=== PATIENT | female | born 1940 | race Caucasian/White ===

== ENCOUNTER 2023-07-24 16:42 | Emergency (ER) | payer MEDICARE, OTHER, SELFPAY ==
[2023-07-24 16:49] VITALS: BP 162/74; PULSE 77; RESP 20; TEMP 37.2; O2SAT 98; BMI 33.7
--- NOTE | 2023-07-24 17:27 | ED_ITS ---
HPI - General Adult General Chief complaint: Upper Respiratory Infection Stated complaint: Sore Throat Time Seen by Provider: 07/24/23 16:51 Source: patient Mode of arrival: walk-in Limitations: no limitations History of Present Illness HPI narrative: Patient is a 83-year-old female who is presenting to the Emergency Room with sinus congestion, sore throat, some discomfort to the left side of her neck. This started last night and this morning. Patient has no fever or chills. Patient states she did have a episode of coughing this morning where she was spitting up clear sputum. Patient has some mild swelling for side of her neck, pain with swallowing, she has no significant pressure to her sinuses. Patient has mild discomfort to the left ear, not the right ear. No chest pain or shortness of breath. No dull pain, nausea, vomiting, or any acute complaints. Patient daughters at bedside. Patient's daughter works at a senior living. Patient's daughter does have home COVID test, they did not use one. Patient looks well. No sick contacts. No other acute complaints. . All systems are negative except as noted/marked. All systems reviewed and otherwise negative. . Nurses note and vital signs reviewed and patient is not hypoxic. General: The patient appears well and in no apparent distress. Patient is resting comfortably on cart. Patient is not toxic, lethargic, or listless Skin: Warm, dry, no pallor noted. There is no rash noted. No petechiae, purpura. Head: Normocephalic, atraumatic; Patient has no tenderness to palpation to bilateral frontal or maxillary sinus. Patient has no tenderness to palpation to the left parotid her left submental saliva gland. Patient has minimal swollen lymph nodes the left anterior cervical chain. Patient has full range of motion of cervical spinal no difficulty, no nuchal rigidity, no meningeal signs or symptoms. Eye: Normal conjunctiva, no drainage, EOMI. PERRL Ears, Nose, Mouth, and Throat: oral mucosa is moist. Nares patent. Mouth without vesicles. Patient bilateral tympanic membrane shows mild amount of stool impaction bilateral. Patient has minimal fluid, a few air-fluid levels noted behind left patient has no air-fluid levels been right tympanic membrane. No erythema bilateral. Patient has cobblestoning noted to the left side of the posterior pharynx, not very much on the right side of posterior pharynx. No unilateral swelling. No other intraoral pathology, patient does have dentures uppers, she has her normal teeth to the lower. Difficult to swelling, no trismus. Patient has no right-sided cervical lymphadenopathy. Cardiovascular: Regular Rate and Rhythm, no murmur, gallop, rub Respiratory: Patient is in no distress, no accessory muscle use, lungs are clear to auscultation, no wheezing, rales or rhonchi Back: non-tender, no CVA tenderness bilaterally to percussion. No CT LS midline pain. GI: soft, no tenderness Musculoskeletal: Patient has full range of motion of all of the extremities, no motor, sensory, or focal neurological deficits Neurological: A&O x3, normal speech Psychiatric: Cooperative Related Data Home Medications Medication Instructions Recorded Confirmed apixaban 5 mg tablet (Eliquis) 5 mg PO Q12H 07/24/23 07/24/23 clonidine HCl 0.1 mg tablet 0.1 mg PO Q4H PRN hypertensive 07/24/23 07/24/23 emergency flecainide 50 mg tablet 25 mg PO Q12H 07/24/23 07/24/23 hydralazine 100 mg tablet 100 mg PO Q12H 07/24/23 07/24/23 irbesartan 150 mg tablet 150 mg PO BID 07/24/23 07/24/23 spironolactone 50 mg tablet 50 mg PO DAILY 07/24/23 07/24/23 Allergies Allergy/AdvReac Type Severity Reaction Status Date / Time NORAH Inhibitors Allergy Severe Cough Verified 07/24/23 17:07 loperamide [From Imodium A-D] Allergy Severe Difficulty Verified 07/24/23 17:07 Breathing nifedipine Allergy Severe Verified 07/24/23 17:07 chlorthalidone AdvReac Severe Cramping Verified 07/24/23 17:07 of the Muscles clonidine AdvReac Severe Dry Mucus Verified 07/24/23 17:07 Membranes codeine AdvReac Severe Nausea Verified 07/24/23 17:07 Penicillins AdvReac Severe Verified 07/24/23 17:07 Sulfa (Sulfonamide AdvReac Severe Nausea Verified 07/24/23 17:07 Antibiotics) hydrochlorothiazide AdvReac Unknown Verified 07/24/23 17:07 [facility] Medical History (Updated 07/24/23 @ 17:15 by George Taylor) History of essential hypertension ?Z86.79 - Personal history of other diseases of the circulatory system (ICD- 10) History of paroxysmal atrial tachycardia ?Z86.79 - Personal history of other diseases of the circulatory system (ICD- 10) History of right bundle branch block ?Z86.79 - Personal history of other diseases of the circulatory system (ICD- 10) Surgical History (Updated 07/24/23 @ 17:15 by George Taylor) History of appendectomy ?Z90.49 - Acquired absence of other specified parts of digestive tract (ICD- 10) History of cataract surgery ?Z98.49 - Cataract extraction status, unspecified eye (ICD-10) History of cholecystectomy ?Z90.49 - Acquired absence of other specified parts of digestive tract (ICD- 10) History of colonoscopy ?Z98.890 - Other specified postprocedural states (ICD-10) History of hysterectomy ?Z90.710 - Acquired absence of both cervix and uterus (ICD-10) History of throat surgery ?Z98.890 - Other specified postprocedural states (ICD-10) Social History Smoking status: Never smoker Exam Constitutional Vital Signs, click to edit/add: Last Vital Signs Temp 99 F 07/24/23 16:49 Pulse 77 07/24/23 16:49 Resp 20 07/24/23 16:49 BP 162/74 H 07/24/23 16:49 Pulse Ox 98 07/24/23 16:49 Course Vital Signs Vital signs: Vital Signs Temperature 99 F 07/24/23 16:49 Pulse Rate 77 07/24/23 16:49 Respiratory Rate 20 07/24/23 16:49 Blood Pressure 162/74 H 07/24/23 16:49 Pulse Oximetry 98 07/24/23 16:49 Temperature 99 F 07/24/23 16:49 Pulse Rate 77 07/24/23 16:49 Respiratory Rate 20 07/24/23 16:49 Blood Pressure 162/74 H 07/24/23 16:49 Pulse Oximetry 98 07/24/23 16:49 Medical Decision Making MDM Narrative Medical decision making narrative: Patient had a orange popsicle no difficulty. Patient has sinus drainage the left side of her posterior pharynx most likely is causing the difficulty swallowing which is minimal. Patient has no other acute pathology. Minimal swollen lymph nodes and left anterior cervical chain, mobile, firm, minimal tenderness. Patient was she symptoms [id number], patient states he has a blood pressure Coricidin and medication that she did take. She cannot take Flonase. Jamie mejia is to increase fluids. Education on COVID was discussed at bedside, patient can be tested by her daughter's home tests if they would like. No questions at discharge. Discharge Plan Discharge Chief Complaint: Upper Respiratory Infection Clinical Impression: Sinus congestion Patient Disposition: Home, Self-Care Condition: Good Mode of Transportation: Private Vehicle Prescriptions / Home Meds: No Action Eliquis 5 mg tablet 5 mg PO Q12H clonidine HCl 0.1 mg tablet 0.1 mg PO Q4H PRN (Reason: hypertensive emergency) flecainide 50 mg tablet 25 mg PO Q12H hydralazine 100 mg tablet 100 mg PO Q12H irbesartan 150 mg tablet 150 mg PO BID spironolactone 50 mg tablet 50 mg PO DAILY Instructions: Cold Symptoms (ED) Additional Instructions: Use [id number] Claritin, Zyrtec or your blood pressure Coricidin medication they have a home to help with trying her sinuses. Increased cold liquids, popsicles or ice cream. Use your daughter's [id number] home COVID test if you would like. Follow-up with PCP if no improvement in the next 3-5 days Stand Alone Forms: Portal Instructions Referrals: ASHLEY PINEDA [Primary Care Provider] - 1 week Discharge Date/Time: 07/24/23 17:18
== END 2023-07-24 17:18 | disposition home or self-care (01) ==
PROVIDERS: Emergency Provider Emergency Medicine; PCP Family Medicine
DX: R09.81 Nasal congestion (principal); I48.0 Paroxysmal atrial fibrillation; I10 Essential (primary) hypertension; Z79.899 Other long term (current) drug therapy; Z79.01 Long term (current) use of anticoagulants; Z90.49 Acquired absence of other specified parts of digestive tract; Z98.49 Cataract extraction status, unspecified eye; Z98.890 Other specified postprocedural states; Z90.710 Acquired absence of both cervix and uterus; Z86.79 Personal history of other diseases of the circulatory system
CPT/HCPCS: 87880; 99281

== ENCOUNTER 2024-02-20 08:44 | Outpatient (OUT) | payer MEDICARE, OTHER, SELFPAY ==
--- OUTSIDE RECORDS SUMMARY | 2024-02-20 08:49 | XMS_ITS | CCD ---
Author Organization [facility] ion [facility] Care Team Providers Care Clinical Research Tech Name Role Phone CHARMAINE TILLEY Attending Unavailable RAGHAV PINEDA Primary Care Unavailable JES KEITH Attending Unavailable RAGHAV PINEDA Primary Care Unavailable JES KEITH Attending Unavailable RAGHAV PINEDA Primary Care Unavailable Raghav Pineda Unavailable Unavailable Unavailable George Adams Unavailable DO Raghav Pineda Primary Care Provider DO Natalie Brian Emergency Provider [phone] RAGHAV PINEDA Primary Care Unavailable JEANINE NOLAN Admitting Unavailable JEANINE NOLAN Attending Unavailable JEANINE NOLAN Consulting Unavailable MISC, DR STACY Admitting Unavailable MISC, DR STACY Attending Unavailable STEPHEN, DR AVILEZ Primary Care Unavailable MISC, DR STACY Consulting Unavailable LEDA, DR BOSCH Admitting Unavailable LEDA, DR BOSCH Attending Unavailable STEPHEN, DR AVILEZ Primary Care Unavailable LEDA, DR BOSCH Consulting Unavailable Clementina Alexis Consulting Unavailable STEPHEN, DR AVILEZ Primary Care Unavailable JEANINE NOLAN Admitting Unavailable JEANINE NOALN Attending Unavailable SHERON FLYNN Consulting Unavailable STEPHEN, DR AVILEZ Primary Care Unavailable JEANINE NOLAN Admitting Unavailable JEANINE NOLAN Attending Unavailable JEANINE NOLAN Consulting Unavailable STEPHEN, DR AVILEZ Primary Care Unavailable KERON, DR TRANG Goins Admitting Unavailkirill CABRALES, DR TRANG Goins Attending Unavailabl benedicto CABRALES, DR TRANG Goins Consulting Unavailkirill e DO Raghav Pineda Primary Care Provider MD Gonzalo Smith Jr Emergency Provider Dr. Charmaine Tilley Referring Cherri vailable Stephen, Dr. Raghav Wagner Primary Care Unavaila ble Tilley, Dr. Charmaine Mancilla Attending Cherri vailable Jarek, Dr. Charmaine Mancilla Referring Cherri vailable Stephen, Dr. Raghav Wagner Primary Care Unavaila ble Tilley, Dr. Charmaine Mancilla Attending Cherri vailable Stephen, DO Avilez Primary Care Provider [phone] Roc, DO Mckeno Emergency Provider Raghav Pineda DO Primary Care Provider [phone] Stephen, DO Avilez Primary Care Provider [phone] Brian, DO Natalie Emergency Provider RAGHAV PINEDA Primary Care Unavailable RAGHAV PINEDA Primary Care Unavailable CHARMAINE TILLEY Attending Unavailable CHARMAINE TILLEY Referring Unavailable RAGHAV PINEDA Primary Care Unavailable CHARMAINE TILLEY Attending Unavailable CHARMAINE TILLEY Attending Unavailable RAGHAV PINEDA Primary Care Unavailable Roc, Natalie Admitting Unavailable Natalie Brian Attending Unavailable Raghav Pineda [facility] Care Unavailable Roc, Natalie Admitting Unavailable Natalie Brian Attending Unavailable Raghav Pineda [facility] Care Unavailable Gonzalo Smith Jr Admitting Unavailable Gonzalo Smith Jr Attending Unavailable Raghav Pineda [facility] Unavailable PRISCA FORBES Referring Unavailable RAGHAV PINEDA Primary Care Unavailable ADALI WOODS Attending Unavailable ELTON OSCAR Attending Unavailable RAGHAV PINEDA Referring Unavailable RAGHAV PINEDA Attending Unavailable RAGHAV PINEDA Referring Unavailable LULI BACON Attending Unavailable RAGHAV PINEDA Referring Unavailable SUSAN MCMAHAN Attending Unavailable RAGHAV PINEDA Referring Unavailable ADALI WOODS Attending Unavailable LORELEI PLUNKETT Attending Unavailable RAGHAV PINEDA Referring Unavailable RAGHAV PINEDA Attending Unavailable RAGHAV PINEDA Referring Unavailable Allergies Allergy Classification Reported Allergen(s) Allergy Type Date of Onset Reaction(s) Facility (16 sources) amLODIPine; Translations: [[facility]] Drug Allergy [address] Work Phone: (17 sources) Angiotensin Converting Enzyme (Norah) Inhibitors; Translations: [NORAH Inhibitors] Allergy to drug (finding) Cough [facility] (20 sources) Chlorthalidone; Translations: [chlorthalidone] Drug Allergy Myalgia [facility] (20 sources) cloNIDine; Translations: [clonidine] Drug Allergy Other, Constipation [facility] (20 sources) Codeine; Translations: [codeine] Drug Allergy Nausea Only [facility] (20 sources) hydroCHLOROthiazide; Translations: [hydrochlorothiazide] Drug Allergy Unknown [facility] (14 sources) Loperamide; Translations: [Imodium] Drug Allergy Nausea Only [facility] [address] [place] Work Phone: (20 sources) NIFEdipine; Translations: [NIFEdipine] Drug Allergy Palpitations [facility] (17 sources) Penicillins; Translations: [Penicillins] Allergy to drug (finding) Unknown Reaction [facility] (16 sources) Sulfamethoxazole; Translations: [sulfa] Drug Allergy 023 Unknown [facility] [address] [place] Work Phone: (11 sources) Sulfonamides (Antibiotic); Translations: [Sulfa Drugs] Allergy to drug (finding) Nausea [facility] [address] Work Phone: (2 sources) Loperamide Drug Allergy Unknown [facility] [employer] Other (2 sources) Penicillins (Antibiotic) Propensity to adverse reactions Unknown [facility] [employer] Other (2 sources) Anti inflammatory Propensity to adverse reactions Unknown [facility] [employer] Other (6 sources) amLODIPine; Translations: [AMLODIPINE] Drug Allergy Leg Swelling [facility] (6 sources) Loperamide; Translations: [LOPERAMIDE] Drug Allergy Difficulty Swallowing [facility] (5 sources) Sulfonamides (Antibiotic); Translations: [Sulfa (Sulfonamide Antibiotics)] Propensity to adverse reactions Vomiting [facility] (1 source) amLODIPine Drug Allergy [facility] (1 source) Angiotensin Converting Enzyme (Norah) Inhibitors Drug allergy (disorder) [facility] (1 source) Chlorthalidone Drug Allergy [facility] (1 source) Codeine Drug Allergy [facility] (1 source) Flupenthixol Drug Allergy [facility] (1 source) hydroCHLOROthiazide Drug Allergy [facility] (1 source) Loperamide Drug Allergy [facility] (1 source) Penicillin Drug Allergy [facility] (1 source) Sulfonamides (Antibiotic) Drug allergy (disorder) [facility] (2 sources) Angiotensin-convertin g enzyme inhibitor agent Drug Intolerance [facility] (2 sources) Penicillins Drug Intolerance [facility] Work Phone: (1 source) Sulfamethoxazole; Translations: [SULFAMETHOXAZOLE] Drug Allergy [facility] Repository (1 source) Angiotensin Converting Enzyme (Norah) Inhibitors Drug allergy (disorder) [facility] (1 source) Chlorthalidone Drug Allergy [facility] (1 source) cloNIDine Drug Allergy [facility] (1 source) Codeine Drug Allergy [facility] (1 source) hydroCHLOROthiazide Drug Allergy [facility] (1 source) NIFEdipine Drug Allergy [facility] Rep[facility] (1 source) Penicillins Drug allergy (disorder) [facility] Repository Medications Current Medications Medication Drug Class(es) Dates Sig (Normalized) Sig (Original) apixaban 5 mg oral tablet (17 sources) Factor Xa Inhibitor Start: 11-30-2017 take 1 tablet by mouth twice daily Apixaban (Eliquis) 5 mg tablet Active 5 MG PO Twice daily November 30, 2017 12:00am balsalazide disodium 750 mg oral capsule (1 source) Aminosalicylate Start: 07-24-2022 take 3 capsules by mouth every twelve hours Balsalazide Disodium 750 MG 3 capsules Orally Twice a day for 30 day(s) Jun, Active cloNIDine hydrochloride 0.1 mg oral tablet (4 sources) Central alpha-2 Adrenergic Agonist Start: 07-27-2023 take 0.1 mg by mouth once daily Clonidine Hcl Active 0.1 MG PO Daily July 26, 2023 11:00pm Start: 07-23-2023 End: 07-22-2024 take 1 tablet by mouth every hour for hypertension cloNIDine (Catapres) 0.1 mg tablet Indications: Essential hypertension, benign Take 1 tablet (0.1 mg) by mouth if needed for high blood pressure (Take for readings above 160, repeat in 1 hour). 60 tablet 11 07/23/2023 07/22/2024 Active docusate sodium 100 mg oral capsule (1 source) Start: 12-25-2021 take 1 capsule by mouth every twelve hours Colace 100 MG 1 capsule as needed Orally bid for 30 day(s) Nov, Active hydrALAZINE hydrochloride 25 mg oral tablet (20 sources) Arteriolar Vasodilator Start: 07-27-2023 take 100 mg by mouth twice daily Hydralazine Active 100 MG PO Twice daily July 27, 2023 11:14am Start: 07-23-2023 End: 07-22-2024 take 1 tablet by mouth twice daily hydrALAZINE (Apresoline) 100 mg tablet Indications: Essential hypertension, benign Take 1 tablet (100 mg) by mouth 2 times a day. 180 tablet 3 07/23/2023 07/22/2024 Active Start: 03-19-2023 End: 07-27-2023 take 25 mg by mouth three times daily Hydralazine Discontinued 25 MG PO Three times daily 90 March 19, 2023 9:12pm July 27, 2023 11:14am Start: 08-20-2021 End: 03-19-2023 take 25 mg by mouth twice daily Hydralazine Discontinued 25 MG PO Twice daily March 18, 2023 11:00pm March 19, 2023 9:12pm Start: 12-22-2020 End: 07-26-2021 take 50 mg by mouth once daily Hydralazine Discontinue d 50 MG PO Daily December 21, 2020 11:00pm July 26, 2021 5:48am sbp greater 160 Start: 01-14-2019 End: 01-17-2019 take 25 mg by mouth twice daily Hydralazine Discontinued 25 MG PO Twice daily January 13, 2019 11:00pm January 17, 2019 11:36am hydrALAZINE HCl Active magnesium oxide 400 mg oral tablet (1 source) Start: 09-18-2023 End: 09-17-2024 take 1 tablet by mouth twice daily magnesium oxide (Mag-Ox) 400 mg (241.3 mg magnesium) tablet Indications: Paroxysmal atrial fibrillation (CMS/HCC) Take 1 tablet (400 mg) by mouth 2 times a day. 180 tablet 3 09/18/2023 09/17/2024 Active spironolactone 50 mg oral tablet (19 sources) Aldosterone Antagonist Start: 07-27-2023 take 50 mg by mouth once daily Spironolactone Active 50 MG PO Daily July 26, 2023 11:00pm Start: 04-02-2023 take 1 tablet by mendoza th once daily Spironolactone 50 MG Oral Tablet TAKE 1 TABLET BY MOUTH DAILY Quantity: 90 Refills: 3 Ordered: 03-Apr-2023 Charmaine Tilley MD Start : 02-Apr-2023 Active Start: 11-10-2020 End: 12-22-2020 take 50 mg by mouth once daily Spironolactone Disconti nued 50 MG PO Daily November 10, 2020 12:00am December 22, 2020 8:17am Spironolactone A ctive sucralfate 1000 mg oral tablet (1 source) Aluminum Complex Start: 12-25-2021 take 1 tablet by mouth every twelve hours Sucralfate 1 GM 1 tablet on an empty stomach Orally Twice a day for 30 day(s) Nov, Active Completed/Discontinued Medications Medication Drug Class(es) Dates Sig (Normalized) Sig (Original) [id number] 200 actuat albuterol 0.09 mg/actuat metered dose inhaler (4 sources) beta2-Adrenergic Agonist Start: 02-20-2018 End: 11-04-2018 Albuterol Sulfate Discontinued 2 INH INHALATION Q6H 8 February 19, 2018 11:00pm November 04, 2018 7:17pm administer with spacer amLODIPine 5 mg oral tablet (2 sources) Dihydropyridine Calcium Channel Troy take 1 tablet by mouth once daily amLODIPine Besylate 5 MG TAKE 1 TABLET BY MOUTH DAILY Oral for 90 Not-Taking atenolol 25 mg oral tablet (10 sources) beta-Adrenergic Troy Start: 01-14-2019 End: 01-17-2019 take 25 mg by mouth once daily Atenolol Discontinued 25 MG PO daily January 13, 2019 11:00pm January 17, 2019 11:36am Start: 11-30-2017 End: 11-05-2018 Atenolol Discontinued 25 MG PO As Directed November 30, 2017 12:00am November 05, 2018 2:44pm carvedilol 6.25 mg oral tablet (14 sources) alpha-Adrenergic Troy, beta-Adrenergic Troy Start: 01-14-2019 End: 01-17-2019 take 3.125 mg by mouth every twelve hours at mealtime Carvedilol Discontinued 3.125 MG PO Q12H January 14, 2019 5:49pm January 17, 2019 11:36am must administer with a meal/food Start: 11-05-2018 End: 01-14-2019 take 6.25 mg by mouth every twelve hours at mealtime Carvedilol Discontinued 6.25 MG PO Q12H 60 30 November 05, 2018 12:00am January 14, 2019 5:50pm must administer with a meal/food Start: 11-30-2017 End: 11-05-2018 take 3.125 mg by mouth twice daily Carvedilol Discontinued 3.125 MG PO Twice daily November 30, 2017 12:00am November 05, 2018 2:46pm Carvedilol Not-T aking chlorthalidone 25 mg oral tablet (4 sources) Thiazide-like Diuretic Start: 11-30-2017 End: 02-20-2018 take 25 mg by mouth twice daily Chlorthalidone Discontinued 25 MG PO Twice daily November 30, 2017 12:00am February 20, 2018 11:17am ciprofloxacin 500 mg oral tablet (2 sources) Quinolone Antimicrobial Start: 12-13-2021 take 1 tablet by mouth every twelve hours Cipro 500 MG 1 tablet Orally every 12 hrs for 7 days PLEASE CHECK ALLERGIES 18 Mar, 2022 Not-Taking dicyclomine hydrochloride 10 mg oral capsule (3 sources) Anticholinergic Start: 12-13-2021 take 1 capsule by mouth every twelve hours Dicyclomine HCl 10 MG 1 CAPSULE Orally TWICE A DAY for 30 day(s) PLEASE CHECK ALLERGIES Nov, Not-Taking doxycycline hyclate 100 mg oral capsule (4 sources) Tetracycline-class Drug Start: 02-20-2018 End: 11-04-2018 take 100 mg by mouth twice daily Doxycycline Hyclate Discontinued 100 MG PO Twice daily 17 07February 19, 2018 11:00pm November 04, 2018 7:17pm estrogens, conjugated (nursing home) 0.625 mg oral tablet (6 sources) Estrogen Start: 11-30-2017 End: 01-14-2019 take 1 tablet by mouth once daily Conjugated Estrogens (Premarin) 0.625 mg Tablet Discontinued 0.625 MG PO Daily November 30, 2017 12:00am January 14, 2019 5:49pm flecainide acetate 50 mg oral tablet (17 sources) Antiarrhythmic Start: 03-15-2023 take 0.5 tablet by mouth twice daily Flecainide Acetate 50 MG Oral Tablet TAKE 1/2 TABLET TWICE DAILY Quantity: 90 Refills: 3 Ordered: 17-Mar-2023 Charmaine Tilley MD Start : 15-Mar-2023 Active Start: 11-30-2017 take 25 mg by mouth twice alesha y Flecainide Active 25 MG PO Twice daily November 30, 2017 12:00am take 1 tablet by mendoza th every twelve hours Flecainide Acetate 50 MG TAKE 1 TABLET BY MOUTH EVERY 12 HOURS Oral for 30 Active furosemide 20 mg oral tablet (10 sources) Loop Diuretic Start: 04-01-2019 End: 11-10-2020 take 1 tablet by mouth once daily in the morning Furosemide (Lasix) 20 mg tablet Discontinued 20 MG PO Every morning March 31, 2019 11:00pm November 10, 2020 5:11pm Start: 02-20-2018 End: 11-04-2018 take 1 tablet by mouth once daily Furosemide (Lasix) 20 mg Tablet Discontinued 20 MG PO Daily February 19, 2018 11:00pm November 04, 2018 7:17pm hyoscyamine sulfate 0.125 mg oral tablet (9 sources) Start: 10-28-2021 take 1 tablet by mouth every six hours for pain Hyoscyamine Sulfate 0.125 MG Oral Tablet TAKE 1 TABLET BY MOUTH EVERY 6 HOURS FOR ABDOMINAL pain Quantity: 20 Refills: 0 Ordered: 28-Oct-2021 DO Start : 28-Oct-2021 Active take 1 tablet by mouth every six hours Hyoscyamine Sulfate 0.125 MG Oral Tablet Disintegrating TAKE 1 TABLET Every 6 hours Quantity: 0 Refills: 0 Ordered: 04-Mar-2022 DO Active irbesartan 150 mg oral tablet (18 sources) Angiotensin 2 Receptor Troy Start: 01-14-2019 take 1 tablet by mouth every twelve hours Irbesartan 150 MG Oral Tablet TAKE 1 TABLET BY MOUTH EVERY 12 HOURS Quantity: 180 Refills: 3 Ordered: 03-Apr-2023 Charmaine Tilley MD Start : 02-Apr-2023 Active Start: 01-14-2019 take 150 mg by mouth twice gogo ly Irbesartan Active 150 MG PO Twice daily January 14, 2019 12:00am take 1 tablet by mendoza th every twelve hours Irbesartan 150 MG Oral Tablet TAKE 1 TABLET Every twelve hours Quantity: 180 Refills: 3 Ordered: 14-Oct-2022 Charmaine Tilley MD Active Irbesartan Activ e losartan potassium 50 mg oral tablet (6 sources) Angiotensin 2 Receptor Troy Start: 11-30-2017 End: 01-14-2019 take 50 mg by mouth twice daily Losartan Discontinued 50 MG PO Twice daily November 30, 2017 12:00am January 14, 2019 5:49pm metroNIDAZOLE 500 mg oral tablet (2 sources) Nitroimidazole Antimicrobial Start: 12-13-2021 take 1 tablet by mouth every twelve hours metroNIDAZOLE 500 MG 1 tablet Orally Twice a day for 7 days PLEASE CHECK ALLERGIES Nov, Not-Taking NIFEdipine 30 mg osmotic 24 hr extended release oral tablet (4 sources) Dihydropyridine Calcium Channel Troy Start: 01-17-2019 End: 11-10-2020 take 30 mg by mouth once daily Nifedipine Discontinued 30 MG PO Daily January 16, 2019 11:00pm November 10, 2020 5:11pm nitrofurantoin, macrocrystals 25 mg / nitrofurantoin, monohydrate 75 mg oral capsule (4 sources) Nitrofuran Antibacterial Start: 12-09-2021 End: 07-27-2023 take 1 capsule by mouth twice daily at mealtime Nitrofurantoin Monohyd/M-Cryst (Macrobid) 100 mg capsule Discontinued 100 MG PO Twice daily 07 02December 08, 2021 11:00pm July 27, 2023 11:14am must administer with a meal/food polysaccharide iron complex 150 mg oral capsule (4 sources) Start: 01-17-2019 End: 11-10-2020 Polysaccharide Iron Complex Discontinued 150 MG PO Every 48 hours January 16, 2019 11:00pm November 10, 2020 5:11pm potassium chloride 10 meq extended release oral capsule (8 sources) Start: 04-01-2019 End: 11-10-2020 take 10 mEq by mouth once daily Potassium Chloride Discontinued 10 MEQ PO Daily March 31, 2019 11:00pm November 10, 2020 5:11pm Start: 11-30-2017 End: 11-04-2018 take 20 mEq by mouth once daily Potassium Chloride (Klor-Con) 20 mEq Packet Discontinued 20 MEQ PO Daily November 30, 2017 12:00am November 04, 2018 7:17pm psyllium 3400 mg powder for oral suspension (4 sources) Start: 06-06-2022 End: 07-27-2023 Psyllium Husk (Metamucil) 3. 4 gram/5.4 gram powder Discontinued 1 TBSP PO Twice daily June 05, 2022 11:00pm July 27, 2023 11:14am mix into at least 8 oz of water or juice before administering Problems Active Problems Problem Classification Problem Date Documented Da te Episodic/Chronic Abdominal pain (13 sources) Abdominal pain; Translations: [Unspecified abdominal pain] Onset: 10-26-2021 12-08-2017 Episodic Cardiac dysrhythmias (20 sources) Paroxysmal atrial fibrillation; Translations: [Atrial fibrillation] Onset: 2018 01-15-2019 Chronic Cardiac dysrhythmias (20 sources) Palpitations; Translations: [Palpitations] Onset: 09-01-2023 07-26-2021 Episodic Conditions associated with dizziness or vertigo (4 sources) Dizziness; Translations: [Dizziness and giddiness] 01-14-2019 Episodic Conduction disorders (14 sources) EKG: right bundle branch block; Translations: [Right bundle branch block] Onset: 07-09-2023 07-09-2023 Chronic Coronary atherosclerosis and other heart disease (4 sources) Angina pectoris; Translations: [Angina pectoris, unspecified] 01-16-2019 Chronic Diverticulosis and diverticulitis (20 sources) Diverticulitis of colon; Translations: [Diverticulitis of colon (without mention of hemorrhage)] Onset: 10-29-2021 Chronic Essential hypertension (20 sources) Essential (primary) hypertension; Translations: [Benign essential hypertension] Onset: 11-24-2018 04-01-2019 Chronic Nonspecific chest pain (7 sources) Chest pain; Translations: [Chest pain, unspecified] Onset: 07-27-2023 01-15-2019 Episodic Other aftercare (20 sources) Drug therapy finding; Translations: [Long-term (current) use of other medications] Onset: 07-09-2023 07-09-2023 Episodic Other aftercare (10 sources) Long-term current use of anticoagulant; Translations: [Long-term (current) use of anticoagulants] Episodic Other aftercare (1 source) Other termination clerk (current) drug therapy; Translations: [OTH [facility] CURRENT DRUG THERAPY] Onset: 09-30-2022 Episodic Other aftercare (1 source) Taking high risk medication; Translations: [Other intermediate (current) drug therapy] 09-18-2023 Episodic Other circulatory disease (4 sources) Elevated blood pressure; Translations: [Elevated blood-pressure reading, without diagnosis of hypertension] 12-22-2020 Episodic Other circulatory disease (4 sources) H/O: atrial fibrillation; Translations: [Personal history of other diseases of the circulatory system] 04-01-2019 Episodic Other gastrointestinal disorders (2 sources) Constipation alternates with diarrhea; Translations: [Other specified symptoms and signs involving the digestive system and abdomen] Episodic Other gastrointestinal disorders (4 sources) Constipation; Translations: [Constipation, unspecified] 06-06-2022 Episodic Other gastrointestinal disorders (1 source) Other specified symptoms and signs involving the digestive system and abdomen Episodic Other lower respiratory disease (4 sources) Dyspnea on exertion; Translations: [Other forms of dyspnea] 01-14-2019 Episodic Other nutritional; endocrine; and metabolic disorders (1 source) Body mass index 30+ - obesity; Translations: [Body Mass Index 35.0-35.9, adult] Chronic Other nutritional; endocrine; and metabolic disorders (1 source) Simple obesity ; Translations: [Obesity, unspecified] Chronic Other nutritional; endocrine; and metabolic disorders (5 sources) Obese class II; Translations: [Body mass index (BMI) 37.0-37.9, adult] 09-18-2023 Chronic Residual codes; unclassified (4 sources) Bilateral lower limb edema; Translations: [Localized edema] 04-01-2019 Episodic Residual codes; unclassified (2 sources) Never smoked any substance; Translations: [Other specified health status] Onset: 09-18-2023 09-18-2023 Episodic Residual codes; unclassified (2 sources) Other specified health status; Translations: [Other specified health status] Onset: 09-18-2023 Episodic Retinal detachments; defects; vascular occlusion; and retinopathy (1 source) Retinal ischemia; 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] Onset: 01-26-2024 Chronic Unclassified (3 sources) Other termination clerk (current) drug therapy; Translations: [Other termination clerk (current) drug therapy] Onset: 2018 Urinary tract infections (4 sources) Cystitis; Translations: [Cystitis, unspecified without hematuria] 12-09-2021 Episodic Viral infection (4 sources) Postherpetic neuralgia; Translations: [Other postherpetic nervous system involvement] 11-10-2020 Episodic Viral infection (4 sources) COVID-19; Translations: [COVID-19] Onset: 09-06-2022 Past or Other Problems Problem Classification Problem Date Documented Da te Episodic/Chronic E Codes: Natural/environment (1 source) Bitten by cat, initial encounter; Translations: [BITTEN BY CAT INITIAL ENCOUNTER] Onset: 01-16-2022 Episodic Immunizations and screening for infectious disease (1 source) Encounter for immunization; Translations: [ENCOUNTER FOR IMMUNIZATION] Onset: 01-16-2022 Episodic Open wounds of extremities (4 sources) Open bite of left hand, initial encounter; Translations: [OPEN BITE LEFT HAND INITIAL ENC] Onset: 01-14-2022 Episodic Other aftercare (1 source) 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; Translations: [[facility] CURRNT USE ANTICOAGULANTS] Onset: 12-18-2021 Episodic Other gastrointestinal disorders (4 sources) Diarrhea, unspecified; Translations: [DIARRHEA UNSPECIFIED] Onset: 12-16-2021 Episodic Other nutritional; endocrine; and metabolic disorders (12 sources) Obesity; Translations: [Obesity, unspecified] Onset: 07-09-2023 Resolved: 09-18-2023 07-09-2023 Chronic Skin and subcutaneous tissue infections (1 source) Cellulitis of left upper limb; Translations: [CELLULITIS OF LEFT UPPER LIMB] Onset: 01-16-2022 Episodic Unclassified (10 sources) Never smoked tobacco; Translations: [Never a smoker] Unclassified (1 source) Onset: 09-18-2023 09-18-2023 Results Test Name Value Interpretation Reference Range Facility ECG 12 Leadon 09-18-2023 ECG revealed normal sinus rhythm with right bundle branch block [facility] Work Phone: Activated partial thrombopla stin time (aPTT) in platelet poor plasma by coagulation aOrdered By: Natalie Brian on 09-01-2023 aPTT Coag (PPP) [Time] 38.3 s 25.1-36.[address] [facility] Comment on above: A hematocrit value g reater than 55% may lead to inaccurate results in coagulation testing. Patients having hematocrit values >55% require a special collection tube for coagulation studies. Please contact the laboratory at [phone] for redraw instructions. B-Type Natriuretic Peptideon 09-01-2023 Natriuretic peptide B (Bld) [Mass/Vol] 126.0 pg/mL High 5-100 [facility] Comment on above: Result Comment: PERF ORMED BY: [facility] [address] [place] [id number] PATHOLOGIST SURFACE GRINDER TENDER ROWAN IRWIN M.D. Performed By: #### C K, CBC, PTT, HS TROP, BMP, BNP, PT ####[facility] [id number] [place] [address] [facility] Basic Metabolic Panelon 0 Anion gap [Moles/Vol] 11.0 mmol/L Normal 6.0-15.[address] [facility] Comment on above: Performed By: #### C K, CBC, PTT, HS TROP, BMP, BNP, PT ####[facility] [place] [id number] [facility] Calcium [Mass/Vol] 9.1 mg/dL Normal 8.6-10.3 [facility] Comment on above: Performed By: #### C K, CBC, PTT, HS TROP, BMP, BNP, PT ####[place] [id number] [address] Chloride [Moles/Vol] 107 mmol/L Normal 98-107 [facility] Comment on above: Performed By: #### C K, CBC, PTT, HS TROP, BMP, BNP, PT ####[place] [id number] [place] [id number] [facility] CO2 [Moles/Vol] 24.0 mmol/L Normal 21.0-31.0 [facility] Comment on above: Performed By: #### C K, CBC, PTT, HS TROP, BMP, BNP, PT ####[place] [id number] [facility] Creatinine [Mass/Vol] 0.93 mg/dL Normal 0.60-1.20 [facility] Comment on above: Performed By: #### C K, CBC, PTT, HS TROP, BMP, BNP, PT ####[place] [address] [place] [id number] [facility] Creatinine Clr Calc Pharmacy 50.24 [facility] Comment on above: Result Comment: PERF ORMED BY: [facility] [address] [place] [address] PATHOLOGIST SURFACE GRINDER TENDER ROWAN IRWIN M.D. Performed By: #### C K, CBC, PTT, HS TROP, BMP, BNP, PT ####[place] [id number] [facility] GFR/1.73 sq M.predicted MDRD (S/P/Bld) [Vol rate/Area] mL/min/{1.73_m2} [facility] Comment on above: Performed By: #### C K, CBC, PTT, HS TROP, BMP, BNP, PT ####[place] [address] [place] [id number] [facility] Glucose [Mass/Vol] 146 mg/dL High 70-100 [facility] Comment on above: Result Comment: [facility] Glucose Reference Range is dependent on time and content of last meal. Glucose of more than 200 mg/dL in a nonstressed, ambulatory subject supports the diagnosis of Diabetes Mellitus. ADA recommended reference range Performed By: #### C K, CBC, PTT, HS TROP, BMP, BNP, PT ####[facility] Potassium [Moles/Vol] 4.0 mmol/L Normal 3.5-5.1 [facility] Comment on above: Performed By: #### C K, CBC, PTT, HS TROP, BMP, BNP, PT ####[place] [address] [address] Sodium [Moles/Vol] 138 mmol/L Normal 136-145 [facility] Comment on above: Performed By: #### C K, CBC, PTT, HS TROP, BMP, BNP, PT ####[place] [address] [address] Urea nitrogen [Mass/Vol] 17 mg/dL Normal 7-25 [facility] Comment on above: Performed By: #### C K, CBC, PTT, HS TROP, BMP, BNP, PT ####[address] Basophils Auto (Bld) [#/Vol] Ordered By: PROVIDER TEMP on 09-01-2023 Basophils (Bld) [#/Vol] 0.1 10*3/uL 0.0-0.2 [facility] Basophils/100 WBC Auto (Bld) Ordered By: PROVIDER TEMP on 09-01-2023 Basophils/100 WBC (Bld) 0.8 % . [facility] Calcium [Mass/volume] in Ser um or PlasmaOrdered By: Natalie Brian on 09-01-2023 Calcium [Mass/Vol] 9.1 mg/dL 8.6-10.3 [facility] Carbon dioxide, total [Moles /volume] in Serum or PlasmaOrdered By: Natalie Brian on 09-01-2023 CO2 [Moles/Vol] 24.0 mmol/L 21.0-31.0 [facility] Chloride [Moles/volume] in S marylou or PlasmaOrdered By: Natalie Brian on 09-01-2023 Chloride [Moles/Vol] 107 mmol/L 98-107 [facility] Complete Blood Count Auto Di ffon 09-01-2023 Basophils (Bld) [#/Vol] 0.1 10*3/uL Normal 0.0-0.2 [facility] Comment on above: Result Comment: PERF ORMED BY: [facility] [address] [place] [address] PATHOLOGIST SURFACE GRINDER TENDER ROWAN IRWIN M.D. Performed By: #### C K, CBC, PTT, HS TROP, BMP, BNP, PT ####[address] Basophils/100 WBC (Bld) 0.8 % Normal . [facility] Comment on above: Performed By: #### C K, CBC, PTT, HS TROP, BMP, BNP, PT ####[address] Eosinophils (Bld) [#/Vol] 0.0 10*3/uL Normal 0.0-0.45 [facility] Comment on above: Performed By: #### C K, CBC, PTT, HS TROP, BMP, BNP, PT ####[address] Eosinophils/100 WBC (Bld) 0.4 % Normal . [facility] Comment on above: Performed By: #### C K, CBC, PTT, HS TROP, BMP, BNP, PT ####[address] Erythrocyte distribution width (RBC) [Ratio] 18.0 % High 11.9-15.3 [facility] Comment on above: Performed By: #### C K, CBC, PTT, HS TROP, BMP, BNP, PT ####[address] Hematocrit (Bld) [Volume fraction] 32.5 % Low 34.0-46.4 [facility] Comment on above: Performed By: #### C K, CBC, PTT, HS TROP, BMP, BNP, PT ####[address] Hemoglobin (Bld) [Mass/Vol] 10.3 g/dL Low 11.8-15.4 [facility] Comment on above: Performed By: #### C K, CBC, PTT, HS TROP, BMP, BNP, PT ####[address] Lymphocytes (Bld) [#/Vol] 0.6 10*3/uL Low 1.00-4.8 [facility] Comment on above: Performed By: #### C K, CBC, PTT, HS TROP, BMP, BNP, PT ####[address] Lymphocytes/100 WBC (Bld) 6.4 % Normal . [facility] Comment on above: Performed By: #### C K, CBC, PTT, HS TROP, BMP, BNP, PT ####[address] MCH (RBC) [Entitic mass] 23.7 pg Low 24.7-34.3 [facility] Comment on above: Performed By: #### C K, CBC, PTT, HS TROP, BMP, BNP, PT ####[address] MCV (RBC) [Entitic vol] 74.6 fL Low 80-100 [facility] Comment on above: Performed By: #### C K, CBC, PTT, HS TROP, BMP, BNP, PT ####[address] Mean Corpuscular HGB Conc 31.8 g/dL Low 32.0-35.0 [facility] Comment on above: Performed By: #### C K, CBC, PTT, HS TROP, BMP, BNP, PT ####[address] Monocytes (Bld) [#/Vol] 0.6 10*3/uL Normal 0.0-0.8 [facility] Comment on above: Performed By: #### C K, CBC, PTT, HS TROP, BMP, BNP, PT ####[address] Monocytes/100 WBC (Bld) 17.29 % Normal 0.00-20.00 [facility] Comment on above: Performed By: #### C K, CBC, PTT, HS TROP, BMP, BNP, PT ####[address] Monocytes/100 WBC (Bld) 6.0 % Normal . [facility] Comment on above: Performed By: #### C K, CBC, PTT, HS TROP, BMP, BNP, PT ####[address] Neutrophils (Bld) [#/Vol] 8.1 10*3/uL High 1.8-7.7 [facility] Comment on above: Performed By: #### C K, CBC, PTT, HS TROP, BMP, BNP, PT ####[address] Neutrophils/100 WBC (Bld) 86.4 % Normal . [facility] Comment on above: Performed By: #### C K, CBC, PTT, HS TROP, BMP, BNP, PT ####[address] NRBC% 0.1 /100{WBC} Normal 0-0.5 [facility] Comment on above: Performed By: #### C K, CBC, PTT, HS TROP, BMP, BNP, PT ####[address] Platelet mean volume (Bld) [Entitic vol] 8.1 fL Normal 6.3-10.7 [facility] Comment on above: Performed By: #### C K, CBC, PTT, HS TROP, BMP, BNP, PT ####[address] Platelets (Bld) [#/Vol] 317 10*3/uL Normal 150-450 [facility] Comment on above: Performed By: #### C K, CBC, PTT, HS TROP, BMP, BNP, PT ####[facility] RBC (Bld) [#/Vol] 4.36 10*6/uL Normal 3.60-5.00 [facility] Comment on above: Performed By: #### C K, CBC, PTT, HS TROP, BMP, BNP, PT ####[facility] WBC (Bld) [#/Vol] 9.4 10*3/uL Normal 3.8-11.6 [facility] Comment on above: Performed By: #### C K, CBC, PTT, HS TROP, BMP, BNP, PT ####[facility] Creatine Kinaseon 09-01-2023 CK [Catalytic activity/Vol] 80 U/L Normal 30-223 [facility] Comment on above: Performed By: #### C K, CBC, PTT, HS TROP, BMP, BNP, PT ####[place] [address] [address] Creatine kinase [Enzymatic a ctivity/volume] in Serum or PlasmaOrdered By: Natalie Brian on 09-01-2023 CK [Catalytic activity/Vol] 80 U/L 30-223 [facility] Creatinine [Mass/volume] in Serum or PlasmaOrdered By: Natalie Brian on 09-01-2023 Creatinine [Mass/Vol] 0.93 mg/dL 0.60-1.20 [facility] ECG 12 lead ECGon 09-01-2023 ECG 12 lead ECG [facility] Main [place] [address] [place] [address] Electrocardiograph Report Signed Patient: Jessy Dow MR#: [id number] 77 : 1940 Acct:[id number] Age/Sex: 83 / F ADM Date: 09/01/23 Loc: ER Room: Type: [facility] ER Attending Dr: Ordering Provider: Natalie Brian DO Date of Service: 09/01/2302/17/939 ECG/ECG 12 lead ECG: Arrhythmia/Palpitations Copies to: Test Reason : Blood Pressure : / mmHG Vent. Rate : 073 BPM Atrial Rate : 073 BPM P-R Int : 152 ms QRS Dur : 146 ms QT Int : 436 ms P-R-T Axes : 032 003 018 degrees QTc Int : 480 ms Sinus rhythm with premature atrial complexes Right bundle branch block Abnormal ECG When compared with ECG of 27-JUL-2023 12:03, premature atrial complexes are now present Confirmed by NATALIE BRIAN DO ([id number]) on 09/01/2023 11:31:37 AM Referred By: Electronically Signed By:NATALIE BRIAN DO Transcribed By: MUS Signed By Natalie Brian DO 09/01 1131 Normal [facility] Eosinophils Auto (Bld) [#/Vo l]Ordered By: PROVIDER TEMP on 09-01-2023 Eosinophils (Bld) [#/Vol] 0.0 10*3/uL 0.0-0.45 [facility] Eosinophils/100 WBC Auto (Bl d)Ordered By: PROVIDER TEMP on 09-01-2023 Eosinophils/100 WBC (Bld) 0.4 % . [facility] Erythrocyte distribution wid th Auto (RBC) [Ratio]Ordered By: PROVIDER TEMP on 09-01-2023 Erythrocyte distribution width (RBC) [Ratio] 18.0 % 11.9-15.3 [facility] Glucose [Mass/volume] in Ser um or PlasmaOrdered By: Natalie Brian on 09-01-2023 Glucose [Mass/Vol] 146 mg/dL 70-100 [facility] Comment on above: ADA recommended refe rence rangeRandom Glucose Reference Range is dependent on time and content of last meal. Glucose of more than 200 mg/dL in a nonstressed, ambulatory subject supports the diagnosis of Diabetes Mellitus. Hematocrit Auto (Bld) [Volum e fraction]Ordered By: PROVIDER TEMP on 09-01-2023 Hematocrit (Bld) [Volume fraction] 32.5 % 34.0-46.4 [facility] Hemoglobin [Mass/volume] in BloodOrdered By: PROVIDER TEMP on 09-01-2023 Hemoglobin (Bld) [Mass/Vol] 10.3 g/dL 11.8-15.4 [facility] INR in Platelet poor plasma by Coagulation assayOrdered By: Natalie Brian on 09-01-2023 INR Coag (PPP) [Relative time] 1.6 {INR} [facility] Comment on above: INR Therapeutic Rang e A) Pre- and Peroperative OAT started two weeks before surgery. NOT HIP SURGERY: 1.5 - 2.5 HIP SURGERY: 2 - 3B) Primary and secondary prevention of venous THROMBOSIS: 2 - 3C) Active venous thrombosis, pulmonary embolismand prevention of recurrent venous thrombosis: 2 - 3D) Prevention of arterial thromboembolismincluding patients with mechanical heart valves: 3 - 4.5 Leukocytes [#/volume] correc qi for nucleated erythrocytes in Blood by Automated counOrdered By: PROVIDER TEMP on 09-01-2023 WBC corrected for nucl RBC Auto (Bld) [#/Vol] 9.4 10*3/uL 3.8-11.6 [facility] Lymphocytes Auto (Bld) [#/Vo l]Ordered By: PROVIDER TEMP on 09-01-2023 Lymphocytes (Bld) [#/Vol] 0.6 10*3/uL 1.00-4.8 [facility] Lymphocytes/100 WBC Auto (Bl d)Ordered By: PROVIDER TEMP on 09-01-2023 Lymphocytes/100 WBC (Bld) 6.4 % . [facility] MCH Auto (RBC) [Entitic mass ]Ordered By: PROVIDER TEMP on 09-01-2023 MCH (RBC) [Entitic mass] 23.7 pg 24.7-34.3 [facility] MCHC Auto (RBC) [Mass/Vol]Or dered By: PROVIDER TEMP on 09-01-2023 MCHC (RBC) [Mass/Vol] 31.8 g/dL 32.0-35.0 [facility] MCV Auto (RBC) [Entitic vol] Ordered By: PROVIDER TEMP on 09-01-2023 MCV (RBC) [Entitic vol] 74.6 fL 80-100 [facility] Monocyte distribution width [Entitic volume] in Blood by AutomatedOrdered By: PROVIDER TEMP on 09-01-2023 Monocyte distribution width Auto (Bld) [Entitic vol] 17.29 % 0.00-20.00 [facility] Monocytes Auto (Bld) [#/Vol] Ordered By: PROVIDER TEMP on 09-01-2023 Monocytes (Bld) [#/Vol] 0.6 10*3/uL 0.0-0.8 [facility] Monocytes/100 WBC Auto (Bld) Ordered By: PROVIDER TEMP on 09-01-2023 Monocytes/100 WBC (Bld) 6.0 % . [facility] Natriuretic peptide B [Mass/ Vol]Ordered By: Natalie Brian on 09-01-2023 Natriuretic peptide B (Bld) [Mass/Vol] 126.0 pg/mL 5-100 [facility] Neutrophils Auto (Bld) [#/Vo l]Ordered By: PROVIDER TEMP on 09-01-2023 Neutrophils (Bld) [#/Vol] 8.1 10*3/uL 1.8-7.7 [facility] Neutrophils/100 WBC Auto (Bl d)Ordered By: PROVIDER TEMP on 09-01-2023 Neutrophils/100 WBC (Bld) 86.4 % . [facility] No Panel InformationOrdered By: Natalie Brian on 09-01-2023 Estimated GFR (CKD-EPI) > 60.0 mL/Min [facility] Creatinine Clearance (Chem 50.24 [facility] Nucleated erythrocytes [Pres ence] in Blood by Automated countOrdered By: PROVIDER TEMP on 09-01-2023 Nucleated RBC Auto Ql (Bld) 0.1 /100{WBC} 0-0.5 [facility] Partial Thromboplastin Timeo n 09-01-2023 aPTT Coag (Bld) [Time] 38.3 s High 25.1-36.[address] [facility] Comment on above: Result Comment: A he matocrit value greater than 55% may lead to inaccurate results in coagulation testing. Patients having hematocrit values >55% require a special collection tube for coagulation studies. Please contact the laboratory at [phone] for redraw instructions. PERFORMED BY: [facility] [address] [place] [id number] PATHOLOGIST SURFACE GRINDER TENDER ROWAN IRWIN M.D. Performed By: #### C K, CBC, PTT, HS TROP, BMP, BNP, PT ####[facility] [place] [id number] [facility] Platelet mean volume Auto (B ld) [Entitic vol]Ordered By: PROVIDER TEMP on 09-01-2023 Platelet mean volume (Bld) [Entitic vol] 8.1 fL 6.3-10.7 [facility] Platelets Auto (Bld) [#/Vol] Ordered By: PROVIDER TEMP on 09-01-2023 Platelets (Bld) [#/Vol] 317 10*3/uL 150-450 [facility] Potassium [Moles/volume] in Serum or PlasmaOrdered By: Natalie Brian on 09-01-2023 Potassium [Moles/Vol] 4.0 mmol/L 3.5-5.1 [facility] Prothrombin Time INRon 09-01 INR Coag (PPP) [Relative time] 1.6 {INR} Normal [facility] Comment on above: Result Comment: INR Therapeutic Range A) Pre- and Peroperative OAT started two weeks before surgery. NOT HIP SURGERY: 1.5 - 2.5 HIP SURGERY: 2 - 3 B) Primary and secondary prevention of venous THROMBOSIS: 2 - 3 C) Active venous thrombosis, pulmonary embolism and prevention of recurrent venous thrombosis: 2 - 3 D) Prevention of arterial thromboembolism including patients with mechanical heart valves: 3 - 4.5 Performed By: #### C K, CBC, PTT, HS TROP, BMP, BNP, PT ####[facility] [place] [id number] [facility] PT Coag (PPP) [Time] 18.4 s High 9.0-12.9 [facility] Comment on above: Result Comment: A he matocrit value greater than 55% may lead to inaccurate results in coagulation testing. Patients having hematocrit values >55% require a special collection tube for coagulation studies. Please contact the laboratory at [phone] for redraw instructions. Performed By: #### C K, CBC, PTT, HS TROP, BMP, BNP, PT ####[facility] [place] [id number] [facility] Prothrombin time (PT)Ordered By: Natalie Brian on 09-01-2023 PT Coag (PPP) [Time] 18.4 s 9.0-12.9 [facility] Comment on above: A hematocrit value g reater than 55% may lead to inaccurate results in coagulation testing. Patients having hematocrit values >55% require a special collection tube for coagulation studies. Please contact the laboratory at [phone] for redraw instructions. RBC Auto (Bld) [#/Vol]Ordere d By: PROVIDER TEMP on 09-01-2023 RBC (Bld) [#/Vol] 4.36 10*6/uL 3.60-5.00 [facility] Serum or plasma anion gap de terminationOrdered By: Natalie Brian on 09-01-2023 Anion gap [Moles/Vol] 11.0 mmol/L 6.0-15.[address] [facility] Sodium [Moles/volume] in Ser um or PlasmaOrdered By: Natalie Brian on 09-01-2023 Sodium [Moles/Vol] 138 mmol/L 136-145 [facility] Troponin I High Sensitivityo n 09-01-2023 Troponin I High Sensitivity 5.2 pg/mL Normal 0.0-15.0 [facility] Comment on above: Result Comment: PERF ORMED BY: [facility] [address] [facility] [place] [id number] PATHOLOGIST SURFACE GRINDER TENDER ROWAN IRWIN M.D. Performed By: #### C K, CBC, PTT, HS TROP, BMP, BNP, PT ####[place] [address] [place] [id number] [facility] Troponin I.cardiac [Mass/vol ume] in Serum or Plasma by Detection limit <= 0.01 ng/Ordered By: Natalie Brian on 09-01-2023 Troponin I.cardiac DL <= 0.01 ng/mL [Mass/Vol] 5.2 pg/mL 0.0-15.0 [facility] Urea nitrogen [Mass/volume] in Serum or PlasmaOrdered By: Natalie Brian on 09-01-2023 Urea nitrogen [Mass/Vol] 17 mg/dL 7-25 [facility] WBC Auto (Bld) [#/Vol]Ordere d By: PROVIDER TEMP on 09-01-2023 WBC (Bld) [#/Vol] 9.4 10*3/uL 3.8-11.6 [facility] XR chest 2V*on 09-01-2023 XR chest 2V* [facility] [place] [address] XRay Report Signed Patient: Jessy Dow MR#: [id number] 77 : 1940 Acct:[id number] Age/Sex: 83 / F ADM Date: 09/01/23 Loc: ER Room: Type: [facility] ER Attending Dr: Copies to: Natalie Brian DO Ordering Provider: Natalie Brian DO Date of Service: 09/01/23 XR/XR chest 2V*: Arrhythmia/Palpitations XR chest 2V* 09/01/2023 9:39 AM SIGNS AND SYMPTOMS: Heart palpitations, hypertension PROTOCOL: Frontal and lateral radiographs of the chest COMPARISON: 07/27/2023 FINDINGS: The trachea is midline. Atherosclerotic changes are noted in the thoracic aorta. The heart and mediastinal structures are within normal limits. The lung parenchyma is clear. The bony thorax is intact. XR/XR chest 2V* IMPRESSION: No acute cardiopulmonary pathology. Impression dictated by: Devin Diallo M.D.09/01/2023 10:19 AM Dictation Location: [place] [address] Transcribed By: [facility] 09/01/23 1019 Dictated By: Devin Diallo II, MD 09/01/23 1002 Signed By: 09/01/23 1019 Normal [facility] Activated partial thrombopla stin time (aPTT) in platelet poor plasma by coagulation aOrdered By: Natalie Brian on 07-27-2023 aPTT Coag (PPP) [Time] 35.2 s 25.1-36.[address] [facility] Comment on above: A hematocrit value g reater than 55% may lead to inaccurate results in coagulation testing. Patients having hematocrit values >55% require a special collection tube for coagulation studies. Please contact the laboratory at [phone] for redraw instructions. Alanine aminotransferase [En zymatic activity/volume] in Serum or PlasmaOrdered By: Natalie Brian on 07-27-2023 ALT [Catalytic activity/Vol] 11 U/L 7-52 [facility] Albumin [Mass/volume] in Ser um or Plasma by Bromocresol green (BCG) dye binding methoOrdered By: Natalie Brian on 07-27-2023 Albumin BCG dye [Mass/Vol] 3.7 g/dL 3.5-5.7 [facility] Alkaline phosphatase [Enzyma tic activity/volume] in Serum or PlasmaOrdered By: Natalie Brian on 07-27-2023 ALP [Catalytic activity/Vol] 94 U/L 34-104 [facility] Aspartate aminotransferase [ Enzymatic activity/volume] in Serum or PlasmaOrdered By: Natalie Brian on 07-27-2023 AST [Catalytic activity/Vol] 15 U/L 13-39 [facility] B-Type Natriuretic Peptideon 07-27-2023 Natriuretic peptide B (Bld) [Mass/Vol] 92.0 pg/mL Normal 5-100 [facility] Comment on above: Result Comment: PERF ORMED BY: [facility] [address] [place] [address] PATHOLOGIST SURFACE GRINDER TENDER ROWAN IRWIN M.D. Performed By: #### C MP, PT, CK, BNP, CBC, HS TROP, PTT, LIPASE ####[facility] [address] Basophils Auto (Bld) [#/Vol] Ordered By: Natalie Brian on 07-27-2023 Basophils (Bld) [#/Vol] 0.1 10*3/uL 0.0-0.2 [facility] Basophils/100 WBC Auto (Bld) Ordered By: Natalie Brian on 07-27-2023 Basophils/100 WBC (Bld) 0.8 % . [facility] Bilirubin Test strip Ql (U)O rdered By: Natalie Brian on 07-27-2023 Bilirubin Ql (U) Negative Negative [facility] Bilirubin.total [Mass/volume ] in Serum or PlasmaOrdered By: Natalie Brian on 07-27-2023 Bilirubin [Mass/Vol] 0.4 mg/dL 0.3-1.[address] [facility] [address] abdomen pelvis wo conon 1 CT abdomen pelvis wo con [facility] Main [place] [address] [place] [id number] Scan Report Signed Patient: Jessy Dow MR#: [id number] [birth year] : 1940 Acct:[id number] Age/Sex: 83 / F ADM Date: 07/27/23 Loc: ER Room: Type: [facility] ER Attending Dr: Copies to: Natalie Brian DO Ordering Provider: Natalie Brian DO Date of Service: 07/27/23 CT/CT abdomen pelvis wo con: f CT abdomen pelvis wo con 07/27/2023 12:19 PM SIGNS AND SYMPTOMS: Hypertension, midsternal chest pain TECHNIQUE: Multidetector ct axial images of the abdomen and pelvis were obtained without IV contrast. Multiplanar reformats were performed and reviewed to further define anatomy and possible pathology. CT was performed with one or more of the following dose reduction techniques: Automated exposure control, adjustment of the mA and/or kV according to patient size, or use of iterative reconstruction technique. COMPARISON: 06/06/2022 FINDINGS: Lower Chest: There is dependent atelectasis in the lung bases. Atherosclerotic changes are noted in the coronary arteries. ABDOMEN: Liver: Within normal limits. Bile Ducts: Normal caliber. Gallbladder: Previously removed. Pancreas: Within normal limits. Spleen: Calcified granulomas are present in the spleen Adrenals: Within normal limits. Kidneys: Within normal limits. Pelvis: Reproductive Organs: No pelvic masses. Ureters: Within normal limits. Bladder: Within normal limits. Bowel: Several uncomplicated colonic diverticula are noted. Mesenteric Lymph Nodes: No enlarged mesenteric lymph nodes. Peritoneum: No ascites or free air, no fluid collection. Vessels: Atherosclerotic changes are noted in the abdominal aorta and its branches. Retroperitoneum: Within normal limits. Abdominal Wall: Within normal limits. Bones: Degenerative changes are noted in the thoracolumbar spine and sacroiliac joints. CT/CT abdomen pelvis wo con IMPRESSION: No bowel obstruction or obstructive uropathy. No acute intra-abdominal pathology. Uncomplicated colonic diverticula are noted. Impression dictated by: Devin Diallo M.D.07/27/2023 1:12 PM Dictation Location: [place] [address] Transcribed By: STEPHON 07/27/23 131 Dictated By: Devin Diallo II, MD 07/27/23 1302 Signed By: 07/27/23 1312 Normal [facility] Calcium [Mass/volume] in Ser um or PlasmaOrdered By: Natalie Brian on 07-27-2023 Calcium [Mass/Vol] 8.9 mg/dL 8.6-10.3 [facility] Carbon dioxide, total [Moles /volume] in Serum or PlasmaOrdered By: Natalie Brian on 07-27-2023 CO2 [Moles/Vol] 23.7 mmol/L 21.0-31.0 [facility] Chloride [Moles/volume] in S marylou or PlasmaOrdered By: Natalie Brian on 07-27-2023 Chloride [Moles/Vol] 106 mmol/L 98-107 [facility] Color Auto (U)Ordered By: Honorio Brian on 07-27-2023 Color (U) Yellow Yellow [facility] Complete Blood Count Auto Di ffon 07-27-2023 Basophils (Bld) [#/Vol] 0.1 10*3/uL Normal 0.0-0.2 [facility] Comment on above: Result Comment: PERF ORMED BY: [facility] [address] [place] [address] PATHOLOGIST SURFACE GRINDER TENDER ROWAN IRWIN M.D. Performed By: #### C MP, PT, CK, BNP, CBC, HS TROP, PTT, LIPASE ####[facility] [id number] [place] [address] [facility] Basophils/100 WBC (Bld) 0.8 % Normal . [facility] Comment on above: Performed By: #### C MP, PT, CK, BNP, CBC, HS TROP, PTT, LIPASE ####[facility] [id number] [place] [address] [facility] Eosinophils (Bld) [#/Vol] 0.0 10*3/uL Normal 0.0-0.45 [facility] Comment on above: Performed By: #### C MP, PT, CK, BNP, CBC, HS TROP, PTT, LIPASE ####[address] Eosinophils/100 WBC (Bld) 0.5 % Normal . [facility] Comment on above: Performed By: #### C MP, PT, CK, BNP, CBC, HS TROP, PTT, LIPASE ####[address] Erythrocyte distribution width (RBC) [Ratio] 18.4 % High 11.9-15.3 [facility] Comment on above: Performed By: #### C MP, PT, CK, BNP, CBC, HS TROP, PTT, LIPASE ####[address] Hematocrit (Bld) [Volume fraction] 33.1 % Low 34.0-46.4 [facility] Comment on above: Performed By: #### C MP, PT, CK, BNP, CBC, HS TROP, PTT, LIPASE ####[address] Hemoglobin (Bld) [Mass/Vol] 10.6 g/dL Low 11.8-15.4 [facility] Comment on above: Performed By: #### C MP, PT, CK, BNP, CBC, HS TROP, PTT, LIPASE ####[address] Lymphocytes (Bld) [#/Vol] 0.6 10*3/uL Low 1.00-4.8 [facility] Comment on above: Performed By: #### C MP, PT, CK, BNP, CBC, HS TROP, PTT, LIPASE ####[address] Lymphocytes/100 WBC (Bld) 7.8 % Normal . [facility] Comment on above: Performed By: #### C MP, PT, CK, BNP, CBC, HS TROP, PTT, LIPASE ####[address] MCH (RBC) [Entitic mass] 23.5 pg Low 24.7-34.3 [facility] Comment on above: Performed By: #### C MP, PT, CK, BNP, CBC, HS TROP, PTT, LIPASE ####[address] MCV (RBC) [Entitic vol] 73.6 fL Low 80-100 [facility] Comment on above: Performed By: #### C MP, PT, CK, BNP, CBC, HS TROP, PTT, LIPASE ####[address] Mean Corpuscular HGB Conc 31.9 g/dL Low 32.0-35.0 [facility] Comment on above: Performed By: #### C MP, PT, CK, BNP, CBC, HS TROP, PTT, LIPASE ####[address] Monocytes (Bld) [#/Vol] 0.6 10*3/uL Normal 0.0-0.8 [facility] Comment on above: Performed By: #### C MP, PT, CK, BNP, CBC, HS TROP, PTT, LIPASE ####[address] Monocytes/100 WBC (Bld) 18.84 % Normal 0.00-20.00 [facility] Comment on above: Performed By: #### C MP, PT, CK, BNP, CBC, HS TROP, PTT, LIPASE ####[address] Monocytes/100 WBC (Bld) 7.4 % Normal . [facility] Comment on above: Performed By: #### C MP, PT, CK, BNP, CBC, HS TROP, PTT, LIPASE ####[address] Neutrophils (Bld) [#/Vol] 6.5 10*3/uL Normal 1.8-7.7 [facility] Comment on above: Performed By: #### C MP, PT, CK, BNP, CBC, HS TROP, PTT, LIPASE ####[address] Neutrophils/100 WBC (Bld) 83.5 % Normal . [facility] Comment on above: Performed By: #### C MP, PT, CK, BNP, CBC, HS TROP, PTT, LIPASE ####[address] NRBC% 0.1 /100{WBC} Normal 0-0.5 [facility] Comment on above: Performed By: #### C MP, PT, CK, BNP, CBC, HS TROP, PTT, LIPASE ####[address] Platelet mean volume (Bld) [Entitic vol] 8.1 fL Normal 6.3-10.7 [facility] Comment on above: Performed By: #### C MP, PT, CK, BNP, CBC, HS TROP, PTT, LIPASE ####[address] Platelets (Bld) [#/Vol] 328 10*3/uL Normal 150-450 [facility] Comment on above: Performed By: #### C MP, PT, CK, BNP, CBC, HS TROP, PTT, LIPASE ####[address] RBC (Bld) [#/Vol] 4.49 10*6/uL Normal 3.60-5.00 [facility] Comment on above: Performed By: #### C MP, PT, CK, BNP, CBC, HS TROP, PTT, LIPASE ####[address] WBC (Bld) [#/Vol] 7.8 10*3/uL Normal 3.8-11.6 [facility] Comment on above: Performed By: #### C MP, PT, CK, BNP, CBC, HS TROP, PTT, LIPASE ####[address] Comprehensive Metabolic Pane barbara 07-27-2023 Albumin [Mass/Vol] 3.7 g/dL Normal 3.5-5.7 [facility] Comment on above: Performed By: #### C MP, PT, CK, BNP, CBC, HS TROP, PTT, LIPASE ####[address] Albumin/Globulin [Mass ratio] 1.1 {ratio} Normal [facility] Comment on above: Performed By: #### C MP, PT, CK, BNP, CBC, HS TROP, PTT, LIPASE ####[address] ALP [Catalytic activity/Vol] 94 U/L Normal 34-104 [facility] Comment on above: Performed By: #### C MP, PT, CK, BNP, CBC, HS TROP, PTT, LIPASE ####[address] ALT [Catalytic activity/Vol] 11 U/L Normal 7-52 [facility] Comment on above: Performed By: #### C MP, PT, CK, BNP, CBC, HS TROP, PTT, LIPASE ####[address] Anion gap [Moles/Vol] 12.2 mmol/L Normal 6.0-15.[address] [facility] Comment on above: Performed By: #### C MP, PT, CK, BNP, CBC, HS TROP, PTT, LIPASE ####[address] AST [Catalytic activity/Vol] 15 U/L Normal 13-39 [facility] Comment on above: Performed By: #### C MP, PT, CK, BNP, CBC, HS TROP, PTT, LIPASE ####[address] Bilirubin [Mass/Vol] 0.4 mg/dL Normal 0.3-1.0 [facility] Comment on above: Performed By: #### C MP, PT, CK, BNP, CBC, HS TROP, PTT, LIPASE ####[address] Calcium [Mass/Vol] 8.9 mg/dL Normal 8.6-10.3 [facility] Comment on above: Performed By: #### C MP, PT, CK, BNP, CBC, HS TROP, PTT, LIPASE ####[address] Chloride [Moles/Vol] 106 mmol/L Normal 98-107 [facility] Comment on above: Performed By: #### C MP, PT, CK, BNP, CBC, HS TROP, PTT, LIPASE ####[address] CO2 [Moles/Vol] 23.7 mmol/L Normal 21.0-31.0 [facility] Comment on above: Performed By: #### C MP, PT, CK, BNP, CBC, HS TROP, PTT, LIPASE ####[address] Creatinine [Mass/Vol] 0.91 mg/dL Normal 0.60-1.20 [facility] Comment on above: Performed By: #### C MP, PT, CK, BNP, CBC, HS TROP, PTT, LIPASE ####[address] Creatinine Clr Calc Pharmacy 52.10 [facility] Comment on above: Performed By: #### C MP, PT, CK, BNP, CBC, HS TROP, PTT, LIPASE ####[address] GFR/1.73 sq M.predicted MDRD (S/P/Bld) [Vol rate/Area] mL/min/{1.73_m2} [facility] Comment on above: Performed By: #### C MP, PT, CK, BNP, CBC, HS TROP, PTT, LIPASE ####[address] Globulin (S) [Mass/Vol] 3.4 g/dL [facility] Comment on above: Performed By: #### C MP, PT, CK, BNP, CBC, HS TROP, PTT, LIPASE ####[address] Glucose [Mass/Vol] 119 mg/dL High 70-100 [facility] Comment on above: Result Comment: [facility] Glucose Reference Range is dependent on time and content of last meal. Glucose of more than 200 mg/dL in a nonstressed, ambulatory subject supports the diagnosis of Diabetes Mellitus. ADA recommended reference range Performed By: #### C MP, PT, CK, BNP, CBC, HS TROP, PTT, LIPASE ####[address] Potassium [Moles/Vol] 3.9 mmol/L Normal 3.5-5.1 [facility] Comment on above: Performed By: #### C MP, PT, CK, BNP, CBC, HS TROP, PTT, LIPASE ####[address] Protein [Mass/Vol] 7.1 g/dL Normal 6.4-8.9 [facility] Comment on above: Performed By: #### C MP, PT, CK, BNP, CBC, HS TROP, PTT, LIPASE ####[address] Sodium [Moles/Vol] 138 mmol/L Normal 136-145 [facility] Comment on above: Performed By: #### C MP, PT, CK, BNP, CBC, HS TROP, PTT, LIPASE ####[place] [id number] [facility] Urea nitrogen [Mass/Vol] 14 mg/dL Normal 7-25 [facility] Comment on above: Performed By: #### C MP, PT, CK, BNP, CBC, HS TROP, PTT, LIPASE ####[place] [id number] [facility] Creatine Kinaseon 07-27-2022 CK [Catalytic activity/Vol] 45 U/L Normal 30-223 [facility] Comment on above: Performed By: #### C MP, PT, CK, BNP, CBC, HS TROP, PTT, LIPASE ####[facility] [id number] [place] [id number] [facility] Creatine kinase [Enzymatic a ctivity/volume] in Serum or PlasmaOrdered By: aNtalie Brian on 07-27-2023 CK [Catalytic activity/Vol] 45 U/L [facility] Creatinine [Mass/volume] in Serum or PlasmaOrdered By: Natalie Brian on 07-27-2023 Creatinine [Mass/Vol] 0.91 mg/dL 0.60-1.20 [facility] ECG 12 lead ECGon 07-27-2023 ECG 12 lead ECG [facility] Main [place] [address] [place] [address] Electrocardiograph Report Signed Patient: Jessy Dow MR#: [id number] [birth year] : 1940 Acct:[id number] Age/Sex: 83 / F ADM Date: 07/27/23 Loc: ER Room: Type: [facility] ER Attending Dr: Ordering Provider: Natalie Brian DO Date of Service: 07/27/23 ECG/ECG 12 lead ECG: Chest Pain Copies to: Test Reason : Blood Pressure : 162/072 mmHG Vent. Rate : 073 BPM Atrial Rate : 073 BPM P-R Int : 156 ms QRS Dur : 142 ms QT Int : 418 ms P-R-T Axes : 044 -05 060 degrees QTc Int : 460 ms Normal sinus rhythm Right bundle branch block Abnormal ECG When compared with ECG of 19-MAR-2023 20:20, T wave inversion more evident in Anterior leads Confirmed by NATALIE BRIAN DO ([id number]) on 07/27/2023 5:25:35 PM Referred By: Electronically Signed By:NATALIE BRIAN DO Transcribed By: MUS Signed By Natalie Brian DO 07/27 1726 Normal [facility] Eosinophils Auto (Bld) [#/Vo l]Ordered By: Natalie Biran on 07-27-2023 Eosinophils (Bld) [#/Vol] 0.0 10*3/uL 0.0-0.45 [facility] Eosinophils/100 WBC Auto (Bl d)Ordered By: Natalie Brian on 07-27-2023 Eosinophils/100 WBC (Bld) 0.5 % . [facility] Erythrocyte distribution wid th Auto (RBC) [Ratio]Ordered By: Natalie Brian on 07-27-2023 Erythrocyte distribution width (RBC) [Ratio] 18.4 % 11.9-15.3 [facility] Globulin Calc (S) [Mass/Vol] Ordered By: Natalie Brian on 07-27-2023 Globulin (S) [Mass/Vol] 3.4 g/dL [facility] Glucose [Mass/volume] in Ser um or PlasmaOrdered By: Natalie Brian on 07-27-2023 Glucose [Mass/Vol] 119 mg/dL 70-100 [facility] Comment on above: ADA recommended refe rence rangeRandom Glucose Reference Range is dependent on time and content of last meal. Glucose of more than 200 mg/dL in a nonstressed, ambulatory subject supports the diagnosis of Diabetes Mellitus. Hematocrit Auto (Bld) [Volum e fraction]Ordered By: Natalie Brian on 07-27-2023 Hematocrit (Bld) [Volume fraction] 33.1 % 34.0-46.4 [facility] Hemoglobin [Mass/volume] in BloodOrdered By: Natalie Brian on 07-27-2023 Hemoglobin (Bld) [Mass/Vol] 10.6 g/dL 11.8-15.4 [facility] INR in Platelet poor plasma by Coagulation assayOrdered By: Natalie Brian on 07-27-2023 INR Coag (PPP) [Relative time] 1.3 {INR} [facility] Comment on above: INR Therapeutic Rang e A) Pre- and Peroperative OAT started two weeks before surgery. NOT HIP SURGERY: 1.5 - 2.5 HIP SURGERY: 2 - 3B) Primary and secondary prevention of venous THROMBOSIS: 2 - 3C) Active venous thrombosis, pulmonary embolismand prevention of recurrent venous thrombosis: 2 - 3D) Prevention of arterial thromboembolismincluding patients with mechanical heart valves: 3 - 4.5 Ketones Auto test strip (U) [Mass/Vol]Ordered By: Natalie Brian on 07-27-2023 Ketones (U) [Mass/Vol] Negative Negative [facility] Leukocytes [#/volume] correc qi for nucleated erythrocytes in Blood by Automated counOrdered By: Natalie Brian on 07-27-2023 WBC corrected for nucl RBC Auto (Bld) [#/Vol] 7.8 10*3/uL 3.8-11.6 [facility] Lipaseon 07-27-2023 Lipase [Catalytic activity/Vol] 15.0 U/L Normal 11.0-82.0 [facility] Comment on above: Result Comment: PERF ORMED BY: [facility] [address] [place] [address] PATHOLOGIST SURFACE GRINDER TENDER ROWAN IRWIN M.D. Performed By: #### C MP, PT, CK, BNP, CBC, HS TROP, PTT, LIPASE ####[facility] [place] [address] [facility] Lipase [Enzymatic activity/v olume] in Serum or PlasmaOrdered By: Natalie Brian on 07-27-2023 Lipase [Catalytic activity/Vol] 15.0 U/L 11.0-82.0 [facility] Lymphocytes Auto (Bld) [#/Vo l]Ordered By: Natalie Brian on 07-27-2023 Lymphocytes (Bld) [#/Vol] 0.6 10*3/uL 1.00-4.8 [facility] Lymphocytes/100 WBC Auto (Bl d)Ordered By: Natalie Brian on 07-27-2023 Lymphocytes/100 WBC (Bld) 7.8 % . [facility] MCH Auto (RBC) [Entitic mass ]Ordered By: Natalie Brian on 07-27-2023 MCH (RBC) [Entitic mass] 23.5 pg 24.7-34.3 [facility] MCHC Auto (RBC) [Mass/Vol]Or dered By: Natalie Brian on 07-27-2023 MCHC (RBC) [Mass/Vol] 31.9 g/dL 32.0-35.0 [facility] MCV Auto (RBC) [Entitic vol] Ordered By: Natalie Brian on 07-27-2023 MCV (RBC) [Entitic vol] 73.6 fL 80-100 [facility] Monocyte distribution width [Entitic volume] in Blood by AutomatedOrdered By: Natalie Brian on 07-27-2023 Monocyte distribution width Auto (Bld) [Entitic vol] 18.84 % 0.00-20.00 [facility] Monocytes Auto (Bld) [#/Vol] Ordered By: Natalie Brian on 07-27-2023 Monocytes (Bld) [#/Vol] 0.6 10*3/uL 0.0-0.8 [facility] Monocytes/100 WBC Auto (Bld) Ordered By: Natalie Brian on 07-27-2023 Monocytes/100 WBC (Bld) 7.4 % . [facility] Natriuretic peptide B [Mass/ Vol]Ordered By: Natalie Brian on 07-27-2023 Natriuretic peptide B (Bld) [Mass/Vol] 92.0 pg/mL 5-100 [facility] Neutrophils Auto (Bld) [#/Vo l]Ordered By: Natalie Brian on 07-27-2023 Neutrophils (Bld) [#/Vol] 6.5 10*3/uL 1.8-7.7 [facility] Neutrophils/100 WBC Auto (Bl d)Ordered By: Natalie Brian on 07-27-2023 Neutrophils/100 WBC (Bld) 83.5 % . [facility] Nitrite Test strip Ql (U)Ord ered By: Natalie Brian on 07-27-2023 Nitrite Ql (U) Negative Negative [facility] No Panel InformationOrdered By: Natalie Brian on 07-27-2023 Estimated GFR (CKD-EPI) > 60.0 mL/Min [facility] Creatinine Clearance (Chem 52.10 [facility] Nucleated erythrocytes [Pres ence] in Blood by Automated countOrdered By: Natalie Brian on 07-27-2023 Nucleated RBC Auto Ql (Bld) 0.1 /100{WBC} 0-0.5 [facility] Partial Thromboplastin Timeo n 07-27-2023 aPTT Coag (Bld) [Time] 35.2 s Normal 25.1-36.[address] [facility] Comment on above: Result Comment: A he matocrit value greater than 55% may lead to inaccurate results in coagulation testing. Patients having hematocrit values >55% require a special collection tube for coagulation studies. Please contact the laboratory at [phone] for redraw instructions. PERFORMED BY: [facility] [address] [place] [address] PATHOLOGIST SURFACE GRINDER TENDER ROWAN IRWIN M.D. Performed By: #### C MP, PT, CK, BNP, CBC, HS TROP, PTT, LIPASE ####[facility] [id number] [place] [id number] [facility] Platelet mean volume Auto (B ld) [Entitic vol]Ordered By: Natalie Brian on 07-27-2023 Platelet mean volume (Bld) [Entitic vol] 8.1 fL 6.3-10.7 [facility] Platelets Auto (Bld) [#/Vol] Ordered By: Natalie Brian on 07-27-2023 Platelets (Bld) [#/Vol] 328 10*3/uL 150-450 [facility] Potassium [Moles/volume] in Serum or PlasmaOrdered By: Natalie Brian on 07-27-2023 Potassium [Moles/Vol] 3.9 mmol/L 3.5-5.1 [facility] Protein Auto test strip (U) [Mass/Vol]Ordered By: Natalie Brian on 07-27-2023 Protein (U) [Mass/Vol] Negative Negative [facility] Protein [Mass/volume] in Ser um or PlasmaOrdered By: Natalie Brian on 07-27-2023 Protein [Mass/Vol] 7.1 g/dL 6.4-8.9 [facility] Prothrombin Time INRon 07-27 INR Coag (PPP) [Relative time] 1.3 {INR} Normal [facility] Comment on above: Result Comment: INR Therapeutic Range A) Pre- and Peroperative OAT started two weeks before surgery. NOT HIP SURGERY: 1.5 - 2.5 HIP SURGERY: 2 - 3 B) Primary and secondary prevention of venous THROMBOSIS: 2 - 3 C) Active venous thrombosis, pulmonary embolism and prevention of recurrent venous thrombosis: 2 - 3 D) Prevention of arterial thromboembolism including patients with mechanical heart valves: 3 - 4.5 Performed By: #### C MP, PT, CK, BNP, CBC, HS TROP, PTT, LIPASE ####[facility] [id number] [place] [id number] [facility] PT Coag (PPP) [Time] 15.6 s High 9.0-12.9 [facility] Comment on above: Result Comment: A he matocrit value greater than 55% may lead to inaccurate results in coagulation testing. Patients having hematocrit values >55% require a special collection tube for coagulation studies. Please contact the laboratory at [phone] for redraw instructions. Performed By: #### C MP, PT, CK, BNP, CBC, HS TROP, PTT, LIPASE ####[facility] [id number] [place] [address] [facility] Prothrombin time (PT)Ordered By: Natalie Brian on 07-27-2023 PT Coag (PPP) [Time] 15.6 s 9.0-12.9 [facility] Comment on above: A hematocrit value g reater than 55% may lead to inaccurate results in coagulation testing. Patients having hematocrit values >55% require a special collection tube for coagulation studies. Please contact the laboratory at [phone] for redraw instructions. RBC Auto (Bld) [#/Vol]Ordere d By: Natalie Brian on 07-27-2023 RBC (Bld) [#/Vol] 4.49 10*6/uL 3.60-5.00 [facility] Serum or plasma albumin/glob ulin mass ratioOrdered By: Natalie Brian on 07-27-2023 Albumin/Globulin [Mass ratio] 1.1 {ratio} [facility] Serum or plasma anion gap de terminationOrdered By: Natalie Brian on 07-27-2023 Anion gap [Moles/Vol] 12.2 mmol/L 6.0-15.[address] [facility] Sodium [Moles/volume] in Ser um or PlasmaOrdered By: Natalie Brian on 07-27-2023 Sodium [Moles/Vol] 138 mmol/L 136-145 [facility] Specific gravity Auto test s trip (U) [Rel density]Ordered By: Natalie Brian on 07-27-2023 Specific gravity (U) [Rel density] 1.005 1.001-1.03 0 [facility] Troponin I High Sensitivityo n 07-27-2023 Troponin I High Sensitivity 4.3 pg/mL Normal 0.0-15.0 [facility] Comment on above: Order Comment: Comme nt repeat Result Comment: PERF ORMED BY: [place] [address] PATHOLOGIST SURFACE GRINDER TENDER ROWAN IRWIN M.D. Performed By: #### H S TROP #### [facility] [address] [place] [address] Troponin I High Sensitivity 3.1 pg/mL Normal 0.0-15.0 [facility] Comment on above: Result Comment: PERF ORMED BY: [facility] [address] [place] [address] PATHOLOGIST SURFACE GRINDER TENDER ROWAN IRWIN M.D. Performed By: #### C MP, PT, CK, BNP, CBC, HS TROP, PTT, LIPASE ####[facility] [id number] [place] [address] [place] Troponin I.cardiac [Mass/vol ume] in Serum or Plasma by Detection limit <= 0.01 ng/Ordered By: Natalie Brian on 07-27-2023 Troponin I.cardiac DL <= 0.01 ng/mL [Mass/Vol] 4.3 pg/mL 0.0-15.0 [facility] Urea nitrogen [Mass/volume] in Serum or PlasmaOrdered By: Natalie Brian on 07-27-2023 Urea nitrogen [Mass/Vol] 14 mg/dL 04-21 [facility] Urinalysison 07-27-2023 Appearance (U) Clear Normal Clear [facility] Comment on above: Order Comment: Name Collection Type:: Clean-Voided Midstream Performed By: #### U A #### [facility] [address] [place] [address] [place] Bilirubin,Urine Negative Normal Negative [facility] Comment on above: Order Comment: Name Collection Type:: Clean-Voided Midstream Performed By: #### U A #### [place] [address] [place] Color (U) Yellow Normal Yellow [facility] Comment on above: Order Comment: Name Collection Type:: Clean-Voided Midstream Performed By: #### U A #### [address] Glucose Ql (U) Normal Normal Normal [facility] Comment on above: Order Comment: Name Collection Type:: Clean-Voided Midstream Performed By: #### U A #### [address] Ketones Ql (U) Negative Normal Negative [facility] Comment on above: Order Comment: Name Collection Type:: Clean-Voided Midstream Performed By: #### U A #### [address] Leukocyte esterase Test strip Ql (U) Negative Normal Negative [facility] Comment on above: Order Comment: Name Collection Type:: Clean-Voided Midstream Performed By: #### U A #### [address] Nitrite,Urine Negative Normal Negative [facility] Comment on above: Order Comment: Name Collection Type:: Clean-Voided Midstream Performed By: #### U A #### [address] Occult Blood,Urine Negative Normal Negative [facility] Comment on above: Order Comment: Name Collection Type:: Clean-Voided Midstream Result Comment: PERF ORMED BY: [place] [address] PATHOLOGIST SURFACE GRINDER TENDER ROWAN IRWIN M.D. Performed By: #### U A #### [place] [address] [place] pH (U) 6.5 [pH] Normal 5.0-9.0 [facility] Comment on above: Order Comment: Name Collection Type:: Clean-Voided Midstream Performed By: #### U A #### [place] [address] [place] Protein,Urine Negative Normal Negative [facility] Comment on above: Order Comment: Name Collection Type:: Clean-Voided Midstream Performed By: #### U A #### [place] [address] [place] Specificy Mcwilliams,Urine 1.005 Normal 1.001-1.03 0 [facility] Comment on above: Order Comment: Name Collection Type:: Clean-Voided Midstream Performed By: #### U A #### [facility] [address] [place] [id number] [facility] Urobilinogen,Urine Normal Normal Normal [facility] Comment on above: Order Comment: Name Collection Type:: Clean-Voided Midstream Performed By: #### U A #### [facility] [address] [place] [address] Urine clarity by refractomet ry automatedOrdered By: Natalie Brian on 07-27-2023 Clarity Refractometry automated (U) Clear Clear [facility] Urine glucose measurement by automated test strip (mass/volume)Ordered By: Natalie Brian on 07-27-2023 Glucose Auto test strip (U) [Mass/Vol] Normal mg/dL Normal [facility] Urine hemoglobin detection b y automated test stripOrdered By: Natalie Brian on 07-27-2023 Hemoglobin Auto test strip Ql (U) Negative Negative [facility] Urine leukocyte esterase det ection by automated test stripOrdered By: Natalie Brian on 07-27-2023 Leukocyte esterase Auto test strip Ql (U) Negative Negative [facility] Urobilinogen Auto test strip (U) [Mass/Vol]Ordered By: Natalie Brian on 07-27-2023 Urobilinogen (U) [Mass/Vol] Normal mg/dL Normal [facility] WBC Auto (Bld) [#/Vol]Ordere d By: Natalie Brian on 07-27-2023 WBC (Bld) [#/Vol] 7.8 10*3/uL 3.8-11.6 [facility] XR chest 2V*on 07-27-2023 XR chest 2V* [facility] [place] [address] XRay Report Signed Patient: Jessy Dow MR#: [id number] [birth year] : 1940 Acct:[id number] Age/Sex: 83 / F ADM Date: 07/27/23 Loc: ER Room: Type: [facility] ER Attending Dr: Copies to: Natalie Brian DO Ordering Provider: Natalie Brian DO Date of Service: 07/27/23 XR/XR chest 2V*: Chest Pain XR chest 2V* 07/27/2023 12:19 PM SIGNS AND SYMPTOMS: Hypertension, headache, midsternal chest pain PROTOCOL: Frontal and lateral radiographs of the chest COMPARISON: 03/19/2023 FINDINGS: The trachea is midline. Atherosclerotic changes are noted in the thoracic aorta. The heart and mediastinal structures are within normal limits. The lung parenchyma is clear. The bony thorax is intact. Degenerative changes are noted in the shoulders and thoracic spine. XR/XR chest 2V* IMPRESSION: No acute cardiopulmonary pathology. Impression dictated by: Devin Diallo M.D.07/27/2023 1:17 PM Dictation Location: [place] [address] Transcribed By: [facility] 07/27/231316 Dictated By: Devin Diallo II, MD 07/27/231314 Signed By: 07/27/231316 Normal [facility] pH Auto test strip (U)Ordere d By: Natalie Brian on 07-27-2023 pH (U) 6.5 [pH] 5.0-9.0 [facility] Office Visit (Cardiology)on 04-16-2023 Follow-up visit Diagnoses/Problems Assessed Paroxysmal atrial fibrillation (427.31) (I48.0) Anticoagulated (V58.61) (Z79.01) High risk medication use (V58.69) (Z79.899) Essential hypertension, benign (401.1) (I10) Right bundle branch block (RBBB) on electrocardiography (426.4) (I45.10) Class 1 obesity with body mass index (BMI) of 34.0 to 34.9 in adult (278.00,V85.34) (E66.9,Z68.34) Never a smoker Diverticulitis, colon (562.11) (K57.32) Orders Class 1 obesity with body mass index (BMI) of 34.0 to 34.9 in adult Healthy Weight Tips; Status:Complete - Retrospective Authorization; Done: [id number] Some eating tips that can help you lose weight.; Status:Complete - Retrospective Authorization; Done: [id number] Paroxysmal atrial fibrillation IO EKG Electrocardiogram- 12 Lead; Status:Complete; Done: [id number] SocHx: Never a smoker Tobacco Use Screening; Status:Complete; Done: [id number] Patient Instructions Please bring all medicines, vitamins, and herbal supplements with you when you come to the office. Prescriptions will not be filled unless you are compliant with your follow up appointments or have a follow up appointment scheduled as per instruction of your physician. Refills should be requested at the time of your visit. Follow up in 6 months Same meds. The provider reviewed the following test(s) and result(s) with the patient: ECG Chief Complaint JESSY DOW is being seen for a 6 month follow-up of. Patient is in the office for follow-up for the problems noted below. She remains in normal sinus rhythm on flecainide confirmed by EKG today with normal measurements. She is on Eliquis with no bleeding problems. She has gained weight since her last visit since her diverticulitis has improved and she is eating back to her baseline habits. Encouragement provided to lose weight with low-calorie diet. She still have issues with her colon and she is scheduled to be seen in May by Dr. Aguilar. She had a visit to the emergency department recently for fluttering and dyspnea however her work-up was negative and she was in sinus rhythm. She complains of chronic mild lower extremity edema which is due to severe venous insufficiency bilaterally. Her blood pressure is under control. Lab data from the recent visit to the hospital was reviewed and discussed with the patient with no areas of concern noted. ASSESSMENT AND PLAN: 1. Paroxysmal atrial fibrillation, on flecainide and Eliquis. The patient is on a very small dose flecainide due to previous intolerance to higher dose with severe bradycardia 2. High-risk medication, Eliquis and flecainide, so far both are well-tolerated at the present doses 3. Obesity, encouraged the patient to walk and cut back calorie intake. 4. Hypertension, presently controlled. 5. History of severe diverticulitis which seems to be getting under control. 6. Chronic venous insufficiency bilaterally leading to significant varicose vein and mild lower extremity edema. Leg elevation when possible and compression stockings were recommended. No medical therapy is recommended Charmaine Tilley MD, [facility] Surgical History Problems History of Appendectomy History of Cataract surgery History of Cholecystectomy History of Colonoscopy History of Hysterectomy History of Throat surgery Current Meds Medication NameInstruction Eliquis 5 MG Oral TabletTake 1 tablet twice daily Flecainide Acetate 50 MG Oral TabletTAKE 1/2 TABLET TWICE DAILY hydrALAZINE HCl - 25 MG Oral TabletTAKE 1 TABLET TWICE DAILY. Irbesartan 150 MG Oral TabletTAKE 1 TABLET BY MOUTH EVERY 12 HOURS Spironolactone 50 MG Oral TabletTAKE 1 TABLET BY MOUTH DAILY Allergies Medication NORAH Inhibitors Adverse Reaction; Cough; Updated By: Chuyita Gonzalez; 09/26/2021 9:12:30 AM chlorthalidone Adverse Reaction; Myalgia; Updated By: Chuyita Gonzalez; 09/26/2021 9:12:30 AM clonidine Allergy; Constipation; Dry mouth; Updated By: Chuyita Gonzalez; 09/26/2021 9:12:30 AM codeine Adverse Reaction; Nausea; Updated By: Opal Alvarez; 10/14/2022 11:53:13 AM Codeine Derivatives Adverse Reaction; Nausea; Recorded By: Chuyita Gonzalez; 09/26/2021 9:12:30 AM Imodium Adverse Reaction; Nausea; Updated By: Chuyita Gonzalez; 09/26/2021 9:12:30 AM NIFEdipine Adverse Reaction; Tachycardia; Updated By: Chuyita Gonzalez; 09/26/2021 9:12:30 AM sulfa Adverse Reaction; Unknown; Updated By: Opal Alvarez; 10/14/2022 11:53:13 AM Sulfa Drugs Adverse Reaction; Nausea; Recorded By: Chuyita Gonzalez; 09/26/2021 9:12:30 AM hydrochlorothiazide Adverse Reaction; Updated By: Chuyita Gonzalez; 09/26/2021 9:12:30 AM Norvasc Adverse Reaction; Updated By: Chuyita Gonzalez; 09/26/2021 9:12:30 AM Penicillins Adverse Reaction; Updated By: Chuyita Gonzalez; 09/26/2021 9:12:30 AM intolerance Social History Problems Never a smoker No alcohol use No caffeine use No illicit drug use Review of Systems Cardiovasc (more content not included)... Normal [employer] Tobacco Screening.on 023 Adult depression screening assessment No [facility] [facility] nirali 250 DO Work Phone: Fall risk assessment a) No falls within the last year [facility] nirali 250 DO Work Phone: Tobacco use status [facility] b) No [facility] n[facility]i 250 DO Work Phone: XR chest 2V*on 03-20-2023 XR chest 2V* [facility] Main [place] [address] [place] [address] XRay Report Signed Patient: Jessy Dow MR#: [id number] 76 : 1940 Acct:[id number] Age/Sex: 82 / F ADM Date: 03/19/23 Loc: ER Room: Type: [facility] ER Attending Dr: Copies to: Gonzalo Smith Jr, MD Ordering Provider: Gonzalo Smith Jr, MD Date of Service: 03/19/23 XR/XR chest 2V*: Arrhythmia/Palpitations Chest 2 views CLINICAL HISTORY: Midsternal chest pain today with elevated blood pressure COMPARISON: Chest 06/06/2022 FINDINGS: Heart is normal in size. Mild lingular atelectasis/scarring. No consolidation pneumothorax pleural effusion or free air. XR/XR chest 2V* IMPRESSION: MILD LINGULAR ATELECTASIS/SCARRING. NO CONSOLIDATION TO SUGGEST PNEUMONIA. Impression dictated by: Bernard Pringle Jr., D.O.03/20/2023 8:21 AM Dictation Location: [place] [address] Transcribed By: [facility] 03/20/23820 Dictated By: Bernard Pringle Jr, DO 03/20/23819 Signed By: 03/20/23820 Normal [facility] Activated partial thrombopla stin time (aPTT) in platelet poor plasma by coagulation aOrdered By: Gonzalo Smith on 03-19-2023 aPTT Coag (PPP) [Time] 33.6 s 25.1-36.[address] [facility] Alanine aminotransferase [En zymatic activity/volume] in Serum or PlasmaOrdered By: Gonzalo Smith on 06-22-2023 ALT [Catalytic activity/Vol] 9 U/L 7-52 [facility] Albumin [Mass/volume] in Ser um or Plasma by Bromocresol green (BCG) dye binding methoOrdered By: Gonzalo Smith on 03-19-2023 Albumin BCG dye [Mass/Vol] 3.9 g/dL 3.5-5.7 [facility] Alkaline phosphatase [Enzyma tic activity/volume] in Serum or PlasmaOrdered By: Gonzalo Smith on 03-19-2023 ALP [Catalytic activity/Vol] 100 U/L 34-104 [facility] Aspartate aminotransferase [ Enzymatic activity/volume] in Serum or PlasmaOrdered By: Gonzalo Smith on 03-19-2023 AST [Catalytic activity/Vol] 13 U/L 13-39 [facility] Basophils Auto (Bld) [#/Vol] Ordered By: Gonzalo Smith on 03-19-2023 Basophils (Bld) [#/Vol] 0.0 10*3/uL 0.0-0.2 [facility] Basophils/100 WBC Auto (Bld) Ordered By: Gonzalo Smith on 03-19-2023 Basophils/100 WBC (Bld) 0.5 % . [facility] Bilirubin.total [Mass/volume ] in Serum or PlasmaOrdered By: Gonzalo Smith on 03-19-2023 Bilirubin [Mass/Vol] 0.4 mg/dL 0.3-1.0 [facility] Calcium [Mass/volume] in Ser um or PlasmaOrdered By: Gonzalo Smith on 03-19-2023 Calcium [Mass/Vol] 9.1 mg/dL 8.6-10.3 [facility] Carbon dioxide, total [Moles /volume] in Serum or PlasmaOrdered By: Gonzalo Smith on 03-19-2023 CO2 [Moles/Vol] 26.7 mmol/L 21.0-31.0 [facility] Chloride [Moles/volume] in S marylou or PlasmaOrdered By: Gonzalo Smith on 03-19-2023 Chloride [Moles/Vol] 105 mmol/L 98-107 [facility] Complete Blood Count Auto Di ffon 03-19-2023 Basophils (Bld) [#/Vol] 0.0 10*3/uL Normal 0.0-0.2 [facility] Comment on above: Result Comment: PERF ORMED BY: [place] [address] PATHOLOGIST SURFACE GRINDER TENDER ROWAN IRWIN M.D. Performed By: #### M G, PTT, CK, HS TROP, PT, CMP, CBC #### [address] Basophils/100 WBC (Bld) 0.5 % Normal . [facility] Comment on above: Performed By: #### M G, PTT, CK, HS TROP, PT, CMP, CBC #### [address] Eosinophils (Bld) [#/Vol] 0.1 10*3/uL Normal 0.0-0.45 [facility] Comment on above: Performed By: #### M G, PTT, CK, HS TROP, PT, CMP, CBC #### [address] Eosinophils/100 WBC (Bld) 1.4 % Normal . [facility] Comment on above: Performed By: #### M G, PTT, CK, HS TROP, PT, CMP, CBC #### [address] Erythrocyte distribution width (RBC) [Ratio] 16.8 % High 11.9-15.3 [facility] Comment on above: Performed By: #### M G, PTT, CK, HS TROP, PT, CMP, CBC #### [address] Hematocrit (Bld) [Volume fraction] 31.4 % Low 34.0-46.4 [facility] Comment on above: Performed By: #### M G, PTT, CK, HS TROP, PT, CMP, CBC #### [address] Hemoglobin (Bld) [Mass/Vol] 10.1 g/dL Low 11.8-15.4 [facility] Comment on above: Performed By: #### M G, PTT, CK, HS TROP, PT, CMP, CBC #### [address] Lymphocytes (Bld) [#/Vol] 0.8 10*3/uL Low 1.00-4.8 [facility] Comment on above: Performed By: #### M G, PTT, CK, HS TROP, PT, CMP, CBC #### [address] Lymphocytes/100 WBC (Bld) 10.9 % Normal . [facility] Comment on above: Performed By: #### M G, PTT, CK, HS TROP, PT, CMP, CBC #### [address] MCH (RBC) [Entitic mass] 23.3 pg Low 24.7-34.3 [facility] Comment on above: Performed By: #### M G, PTT, CK, HS TROP, PT, CMP, CBC #### [address] MCV (RBC) [Entitic vol] 72.9 fL Low 80-100 [facility] Comment on above: Performed By: #### M G, PTT, CK, HS TROP, PT, CMP, CBC #### [address] Mean Corpuscular HGB Conc 32.0 g/dL Normal 32.0-35.0 [facility] Comment on above: Performed By: #### M G, PTT, CK, HS TROP, PT, CMP, CBC #### [address] Monocytes (Bld) [#/Vol] 0.6 10*3/uL Normal 0.0-0.8 [facility] Comment on above: Performed By: #### M G, PTT, CK, HS TROP, PT, CMP, CBC #### [address] Monocytes/100 WBC (Bld) 19.02 % Normal 0.00-20.00 [facility] Comment on above: Performed By: #### M G, PTT, CK, HS TROP, PT, CMP, CBC #### [facility] [address] Monocytes/100 WBC (Bld) 7.7 % Normal . [facility] Comment on above: Performed By: #### M G, PTT, CK, HS TROP, PT, CMP, CBC #### [facility] [address] Neutrophils (Bld) [#/Vol] 5.7 10*3/uL Normal 1.8-7.7 [facility] Comment on above: Performed By: #### M G, PTT, CK, HS TROP, PT, CMP, CBC #### [address] Neutrophils/100 WBC (Bld) 79.5 % Normal . [facility] Comment on above: Performed By: #### M G, PTT, CK, HS TROP, PT, CMP, CBC #### [address] NRBC% 0.0 /100{WBC} Normal 0-0.5 [facility] Comment on above: Performed By: #### M G, PTT, CK, HS TROP, PT, CMP, CBC #### [address] Platelet mean volume (Bld) [Entitic vol] 8.2 fL Normal 6.3-10.7 [facility] Comment on above: Performed By: #### M G, PTT, CK, HS TROP, PT, CMP, CBC #### [address] Platelets (Bld) [#/Vol] 291 10*3/uL Normal 150-450 [facility] Comment on above: Performed By: #### M G, PTT, CK, HS TROP, PT, CMP, CBC #### [address] RBC (Bld) [#/Vol] 4.31 10*6/uL Normal 3.60-5.00 [facility] Comment on above: Performed By: #### M G, PTT, CK, HS TROP, PT, CMP, CBC #### [address] WBC (Bld) [#/Vol] 7.2 10*3/uL Normal 3.8-11.6 [facility] Comment on above: Performed By: #### M G, PTT, CK, HS TROP, PT, CMP, CBC #### [facility] [address] [place] [address] Comprehensive Metabolic Pane barbara 03-19-2023 Albumin [Mass/Vol] 3.9 g/dL Normal 3.5-5.7 [facility] Comment on above: Performed By: #### M G, PTT, CK, HS TROP, PT, CMP, CBC #### [address] Albumin/Globulin [Mass ratio] 1.4 {ratio} Normal [facility] Comment on above: Performed By: #### M G, PTT, CK, HS TROP, PT, CMP, CBC #### [address] ALP [Catalytic activity/Vol] 100 U/L Normal 34-104 [facility] Comment on above: Performed By: #### M G, PTT, CK, HS TROP, PT, CMP, CBC #### [address] ALT [Catalytic activity/Vol] 9 U/L Normal 7-52 [facility] Comment on above: Performed By: #### M G, PTT, CK, HS TROP, PT, CMP, CBC #### [address] Anion gap [Moles/Vol] 11.3 mmol/L Normal 6.0-15.[address] [facility] Comment on above: Performed By: #### M G, PTT, CK, HS TROP, PT, CMP, CBC #### [address] AST [Catalytic activity/Vol] 13 U/L Normal 13-39 [facility] Comment on above: Performed By: #### M G, PTT, CK, HS TROP, PT, CMP, CBC #### [facility] [address] Bilirubin [Mass/Vol] 0.4 mg/dL Normal 0.3-1.0 [facility] Comment on above: Performed By: #### M G, PTT, CK, HS TROP, PT, CMP, CBC #### [facility] [address] Calcium [Mass/Vol] 9.1 mg/dL Normal 8.6-10.3 [facility] Comment on above: Performed By: #### M G, PTT, CK, HS TROP, PT, CMP, CBC #### [facility] [address] Chloride [Moles/Vol] 105 mmol/L Normal 98-107 [facility] Comment on above: Performed By: #### M G, PTT, CK, HS TROP, PT, CMP, CBC #### [facility] [address] CO2 [Moles/Vol] 26.7 mmol/L Normal 21.0-31.0 [facility] Comment on above: Performed By: #### M G, PTT, CK, HS TROP, PT, CMP, CBC #### [facility] [address] Creatinine [Mass/Vol] 0.80 mg/dL Normal 0.60-1.20 [facility] Comment on above: Performed By: #### M G, PTT, CK, HS TROP, PT, CMP, CBC #### [facility] [address] [place] [address] [place] Creatinine Clr Calc Pharmacy 57.01 [facility] Comment on above: Performed By: #### M G, PTT, CK, HS TROP, PT, CMP, CBC #### [facility] [address] [place] [address] [place] GFR/1.73 sq M.predicted MDRD (S/P/Bld) [Vol rate/Area] mL/min/{1.73_m2} [facility] Comment on above: Performed By: #### M G, PTT, CK, HS TROP, PT, CMP, CBC #### [address] Globulin (S) [Mass/Vol] 2.8 g/dL [facility] Comment on above: Performed By: #### M G, PTT, CK, HS TROP, PT, CMP, CBC #### [address] Glucose [Mass/Vol] 106 mg/dL High 70-100 [facility] Comment on above: Result Comment: [facility] Glucose Reference Range is dependent on time and content of last meal. Glucose of more than 200 mg/dL in a nonstressed, ambulatory subject supports the diagnosis of Diabetes Mellitus. ADA recommended reference range Performed By: #### M G, PTT, CK, HS TROP, PT, CMP, CBC #### [address] Potassium [Moles/Vol] 4.0 mmol/L Normal 3.5-5.1 [facility] Comment on above: Performed By: #### M G, PTT, CK, HS TROP, PT, CMP, CBC #### [address] Protein [Mass/Vol] 6.7 g/dL Normal 6.4-8.9 [facility] Comment on above: Performed By: #### M G, PTT, CK, HS TROP, PT, CMP, CBC #### [address] Sodium [Moles/Vol] 139 mmol/L Normal 136-145 [facility] Comment on above: Performed By: #### M G, PTT, CK, HS TROP, PT, CMP, CBC #### [address] Urea nitrogen [Mass/Vol] 18 mg/dL Normal 7-25 [facility] Comment on above: Performed By: #### M G, PTT, CK, HS TROP, PT, CMP, CBC #### [facility] [address] [place] [address] [place] Creatine Kinaseon 03-19-2023 CK [Catalytic activity/Vol] 40 U/L Normal [facility] Comment on above: Performed By: #### M G, PTT, CK, HS TROP, PT, CMP, CBC ####[facility] [id number] [place] [address] [facility] Creatine kinase [Enzymatic a ctivity/volume] in Serum or PlasmaOrdered By: Gonzalo Smith on 03-19-2023 CK [Catalytic activity/Vol] 40 U/L [facility] Creatinine [Mass/volume] in Serum or PlasmaOrdered By: Gonzalo Smith on 03-19-2023 Creatinine [Mass/Vol] 0.80 mg/dL 0.60-1.20 [facility] ECG 12 lead ECGon 03-19-2023 ECG 12 lead ECG [facility] Main [place] [address] [place] [address] Electrocardiograph Report Signed Patient: Jessy Dow MR#: [id number] [birth year] : 1940 Acct:[id number] Age/Sex: 82 / F ADM Date: 03/19/23 Loc: ER Room: Type: [facility] ER Attending Dr: Ordering Provider: Gonzalo Smith Jr, MD Date of Service: 03/19/23 ECG/ECG 12 lead ECG: Arrhythmia/Palpitations Copies to: Test Reason : Blood Pressure : 186/079 mmHG Vent. Rate : 063 BPM Atrial Rate : 063 BPM P-R Int : 144 ms QRS Dur : 134 ms QT Int : 452 ms P-R-T Axes : 008 005 026 degrees QTc Int : 462 ms Normal sinus rhythm Right bundle branch block Abnormal ECG When compared with ECG of 06-JUN-2022 05:57, No significant change was found Confirmed by GONZALO SMITH MD ([id number]) on 03/20/2023 5:40:46 AM Referred By: Electronically Signed By:GONZALO SMITH MD Transcribed By: MUS Signed By Gonzalo Smith Jr, MD [id number] [facility] Eosinophils Auto (Bld) [#/Vo l]Ordered By: Gonzalo Smith on 03-19-2023 Eosinophils (Bld) [#/Vol] 0.1 10*3/uL 0.0-0.45 [facility] Eosinophils/100 WBC Auto (Bl d)Ordered By: Gonzalo Smith on 03-19-2023 Eosinophils/100 WBC (Bld) 1.4 % . [facility] Erythrocyte distribution wid th Auto (RBC) [Ratio]Ordered By: Gonzalo Smith on 03-19-2023 Erythrocyte distribution width (RBC) [Ratio] 16.8 % 11.9-15.3 [facility] Globulin Calc (S) [Mass/Vol] Ordered By: Gonzalo Smith on 03-19-2023 Globulin (S) [Mass/Vol] 2.8 g/dL [facility] Glucose [Mass/volume] in Ser um or PlasmaOrdered By: Gonzalo Smith on 03-19-2023 Glucose [Mass/Vol] 106 mg/dL 70-100 [facility] Comment on above: ADA recommended refe rence rangeRandom Glucose Reference Range is dependent on time and content of last meal. Glucose of more than 200 mg/dL in a nonstressed, ambulatory subject supports the diagnosis of Diabetes Mellitus. Hematocrit Auto (Bld) [Volum e fraction]Ordered By: Gonzalo Smith on 03-19-2023 Hematocrit (Bld) [Volume fraction] 31.4 % 34.0-46.4 [facility] Hemoglobin [Mass/volume] in BloodOrdered By: Gonzalo Smith on 03-19-2023 Hemoglobin (Bld) [Mass/Vol] 10.1 g/dL 11.8-15.4 [facility] Laboratory - CoagulationOrde red By: Gonzalo Smith on 03-19-2023 PT Coag (PPP) [Time] 13.7 s 9.0-12.9 [facility] Leukocytes [#/volume] correc qi for nucleated erythrocytes in Blood by Automated counOrdered By: Gonzalo Smith on 03-19-2023 WBC corrected for nucl RBC Auto (Bld) [#/Vol] 7.2 10*3/uL 3.8-11.6 [facility] Lymphocytes Auto (Bld) [#/Vo l]Ordered By: Gonzalo Smith on 03-19-2023 Lymphocytes (Bld) [#/Vol] 0.8 10*3/uL 1.00-4.8 [facility] Lymphocytes/100 WBC Auto (Bl d)Ordered By: Gonzalo Smith on 03-19-2023 Lymphocytes/100 WBC (Bld) 10.9 % . [facility] MCH Auto (RBC) [Entitic mass ]Ordered By: Gonzalo Smith on 03-19-2023 MCH (RBC) [Entitic mass] 23.3 pg 24.7-34.3 [facility] MCHC Auto (RBC) [Mass/Vol]Or dered By: Gonzalo Smith on 03-19-2023 MCHC (RBC) [Mass/Vol] 32.0 g/dL 32.0-35.0 [facility] MCV Auto (RBC) [Entitic vol] Ordered By: Gonzalo Smith on 03-19-2023 MCV (RBC) [Entitic vol] 72.9 fL 80-100 [facility] Magnesiumon 03-19-2023 Magnesium [Mass/Vol] 1.9 mg/dL Normal 1.9-2.7 [facility] Comment on above: Result Comment: PERF ORMED BY: [facility] [address] [place] [address] PATHOLOGIST SURFACE GRINDER TENDER ROWAN IRWIN M.D. Performed By: #### M G, PTT, CK, HS TROP, PT, CMP, CBC ####[facility] [id number] [place] [address] [facility] Magnesium [Mass/volume] in S marylou or PlasmaOrdered By: Gonzalo Smith on 03-19-2023 Magnesium [Mass/Vol] 1.9 mg/dL 1.9-2.7 [facility] Monocyte distribution width [Entitic volume] in Blood by AutomatedOrdered By: Gonzalo Smith on 03-19-2023 Monocyte distribution width Auto (Bld) [Entitic vol] 19.02 % 0.00-20.00 [facility] Monocytes Auto (Bld) [#/Vol] Ordered By: Gonzalo Smith on 03-19-2023 Monocytes (Bld) [#/Vol] 0.6 10*3/uL 0.0-0.8 [facility] Monocytes/100 WBC Auto (Bld) Ordered By: Gonzalo Smith on 03-19-2023 Monocytes/100 WBC (Bld) 7.7 % . [facility] Neutrophils Auto (Bld) [#/Vo l]Ordered By: Gonzalo Smith on 03-19-2023 Neutrophils (Bld) [#/Vol] 5.7 10*3/uL 1.8-7.7 [facility] Neutrophils/100 WBC Auto (Bl d)Ordered By: Gonzalo Smith on 03-19-2023 Neutrophils/100 WBC (Bld) 79.5 % . [facility] No Panel InformationOrdered By: Gonzalo Smith on 03-19-2023 Estimated GFR (CKD-EPI) > 60.0 mL/Min [facility] Creatinine Clearance (Chem 57.01 [facility] Nucleated erythrocytes [Pres ence] in Blood by Automated countOrdered By: Gonzalo Smith on 03-19-2023 Nucleated RBC Auto Ql (Bld) 0.0 /100{WBC} 0-0.5 [facility] Partial Thromboplastin Timeo n 03-19-2023 aPTT Coag (Bld) [Time] 33.6 s Normal 25.1-36.[address] [facility] Comment on above: Result Comment: PERF ORMED BY: [facility] [address] [place] [address] PATHOLOGIST SURFACE GRINDER TENDER ROWAN IRWIN M.D. Performed By: #### M G, PTT, CK, HS TROP, PT, CMP, CBC #### [facility] [address] Platelet mean volume Auto (B ld) [Entitic vol]Ordered By: Gonzalo Smith on 03-19-2023 Platelet mean volume (Bld) [Entitic vol] 8.2 fL 6.3-10.7 [facility] Platelet poor plasma interna tional normalized ratio (INR) by coagulation assay (relatOrdered By: Gonzalo Smith on 03-19-2023 INR Coag (PPP) [Relative time] 1.2 {INR} [facility] Comment on above: INR Therapeutic Rang e A) Pre- and Peroperative OAT started two weeks before surgery. NOT HIP SURGERY: 1.5 - 2.5 HIP SURGERY: 2 - 3B) Primary and secondary prevention of venous THROMBOSIS: 2 - 3C) Active venous thrombosis, pulmonary embolismand prevention of recurrent venous thrombosis: 2 - 3D) Prevention of arterial thromboembolismincluding patients with mechanical heart valves: 3 - 4.5 Platelets Auto (Bld) [#/Vol] Ordered By: Gonzalo Smith on 03-19-2023 Platelets (Bld) [#/Vol] 291 10*3/uL 150-450 [facility] Potassium [Moles/volume] in Serum or PlasmaOrdered By: Gonzalo Smith on 03-19-2023 Potassium [Moles/Vol] 4.0 mmol/L 3.5-5.1 [facility] Protein [Mass/volume] in Ser um or PlasmaOrdered By: Gonzalo Smith on 03-19-2023 Protein [Mass/Vol] 6.7 g/dL 6.4-8.9 [facility] Center Prothrombin Time INRon 03-19 INR Coag (PPP) [Relative time] 1.2 {INR} Normal [facility] Comment on above: Result Comment: INR Therapeutic Range A) Pre- and Peroperative OAT started two weeks before surgery. NOT HIP SURGERY: 1.5 - 2.5 HIP SURGERY: 2 - 3 B) Primary and secondary prevention of venous THROMBOSIS: 2 - 3 C) Active venous thrombosis, pulmonary embolism and prevention of recurrent venous thrombosis: 2 - 3 D) Prevention of arterial thromboembolism including patients with mechanical heart valves: 3 - 4.5 Performed By: #### M G, PTT, CK, HS TROP, PT, CMP, CBC #### [facility] [address] PT Coag (PPP) [Time] 13.7 s High 9.0-12.9 [facility] Comment on above: Performed By: #### M G, PTT, CK, HS TROP, PT, CMP, CBC #### [facility] [address] RBC Auto (Bld) [#/Vol]Ordere d By: Gonzalo Smith on 03-19-2023 RBC (Bld) [#/Vol] 4.31 10*6/uL 3.60-5.00 [facility] Serum or plasma albumin/glob ulin mass ratioOrdered By: Gonzalo Smith on 03-19-2023 Albumin/Globulin [Mass ratio] 1.4 {ratio} [facility] Serum or plasma anion gap de terminationOrdered By: Gonzalo Smith on 03-19-2023 Anion gap [Moles/Vol] 11.3 mmol/L 6.0-15.[address] [facility] Sodium [Moles/volume] in Ser um or PlasmaOrdered By: Gonzalo Smith on 03-19-2023 Sodium [Moles/Vol] 139 mmol/L 136-145 [facility] Troponin I High Sensitivityo n 03-19-2023 Troponin I High Sensitivity 4.1 pg/mL Normal 0.0-15.0 [facility] Comment on above: Result Comment: PERF ORMED BY: [facility] [address] [place] [address] PATHOLOGIST SURFACE GRINDER TENDER ROWAN IRWIN M.D. Performed By: #### M G, PTT, CK, HS TROP, PT, CMP, CBC ####[facility] [id number] [place] [address] [facility] Troponin I.cardiac [Mass/vol ume] in Serum or Plasma by Detection limit <= 0.01 ng/Ordered By: Gonzalo Smith on 03-19-2023 Troponin I.cardiac DL <= 0.01 ng/mL [Mass/Vol] 4.1 pg/mL 0.0-15.0 [facility] Urea nitrogen [Mass/volume] in Serum or PlasmaOrdered By: Gonzalo Smith on 03-19-2023 Urea nitrogen [Mass/Vol] 18 mg/dL 7-25 [facility] WBC Auto (Bld) [#/Vol]Ordere d By: Gonzalo Smith on 03-19-2023 WBC (Bld) [#/Vol] 7.2 10*3/uL 3.8-11.6 [facility] Office Visit (Cardiology)on 10-14-2022 Follow-up visit Diagnoses/Problems Assessed Paroxysmal atrial fibrillation (427.31) (I48.0) Anticoagulant long-term use (V58.61) (Z79.01) High risk medication use (V58.69) (Z79.899) Essential hypertension, benign (401.1) (I10) Never a smoker Class 1 obesity with body mass index (BMI) of 31.0 to 31.9 in adult (278.00,V85.31) (E66.9,Z68.31) Diverticulitis, colon (562.11) (K57.32) Orders Class 1 obesity with body mass index (BMI) of 31.0 to 31.9 in adult Healthy Weight Tips; Status:Complete - Retrospective Authorization; Done: 14Oct2022 Some eating tips that can help you lose weight.; Status:Complete - Retrospective Authorization; Done: 14Oct2022 Essential hypertension, benign Renew: Irbesartan 150 MG Oral Tablet; TAKE 1 TABLET Every twelve hours Paroxysmal atrial fibrillation IO EKG Electrocardiogram- 12 Lead; Status:Complete; Done: 14Oct2022 SocHx: Never a smoker Tobacco Use Screening; Status:Complete; Done: 14Oct2022 Patient Instructions Please bring all medicines, vitamins, and herbal supplements with you when you come to the office. Prescriptions will not be filled unless you are compliant with your follow up appointments or have a follow up appointment scheduled as per instruction of your physician. Refills should be requested at the time of your visit. Same medication Follow up in 6 months Chief Complaint JESSY DOW is being seen for a 6 month follow-up of. Patient is in the office for follow-up for the problems noted below. She has done well since her last visit. She has a visit to the emergency department back in May 2022 at [facility] the record from the visit were reviewed and discussed with patient. She presented with symptoms of tachycardia but she was found to be in normal sinus rhythm. Currently the patient is doing well with normal blood pressure reading and normal cardiac examination EKG revealed normal sinus rhythm and normal QTc interval. Her weight remains above target and education provided to bring it down further with diet and exercise. She lost her last summer for Parkinson's disease. She lives alone at this time. ASSESSMENT AND PLAN: 1. Paroxysmal atrial fibrillation, on flecainide and Eliquis. The patient is on a very small dose flecainide due to previous intolerance to higher dose with severe bradycardia 2. High-risk medication, Eliquis and flecainide, so far both are well-tolerated at the present doses 3. Obesity, encouraged the patient to walk and cut back calorie intake. Her weight has dropped 20 pounds in the last several months due to diverticulitis 4. Hypertension, presently controlled. 5. History of severe diverticulitis which seems to be getting under control. Charmaine Tilley MD, [facility] Surgical History Problems History of Appendectomy History of Cataract surgery History of Cholecystectomy History of Colonoscopy History of Hysterectomy History of Throat surgery Current Meds Medication NameInstruction Eliquis 5 MG Oral TabletTake 1 tablet twice daily Flecainide Acetate 50 MG Oral TabletTAKE 0.5 TABLET Twice daily hydrALAZINE HCl - 25 MG Oral TabletTAKE 1 TABLET TWICE DAILY. Hyoscyamine Sulfate 0.125 MG Oral TabletTAKE 1 TABLET BY MOUTH EVERY 6 HOURS FOR ABDOMINAL pain Irbesartan 150 MG Oral TabletTAKE 1 TABLET Every twelve hours Spironolactone 50 MG Oral TabletTake 1 tablet daily Allergies Medication NORAH Inhibitors Adverse Reaction; Cough; Updated By: Chuyita Gonzalez; 09/26/2021 9:12:30 AM chlorthalidone Adverse Reaction; Myalgia; Updated By: Chuyita Gonzalez; 09/26/2021 9:12:30 AM clonidine Allergy; Constipation; Dry mouth; Updated By: Chuyita Gonzalez; 09/26/2021 9:12:30 AM codeine Adverse Reaction; Nausea; Updated By: Opal Alvarez; 10/14/2022 11:53:13 AM Codeine Derivatives Adverse Reaction; Nausea; Recorded By: Chuyita Gonzalez; 09/26/2021 9:12:30 AM Imodium Adverse Reaction; Nausea; Updated By: Chuyita Gonzalez; 09/26/2021 9:12:30 AM NIFEdipine Adverse Reaction; Tachycardia; Updated By: Chuyita Gonzalez; 09/26/2021 9:12:30 AM sulfa Adverse Reaction; Unknown; Updated By: Opal Alvarez; 10/14/2022 11:53:13 AM Sulfa Drugs Adverse Reaction; Nausea; Recorded By: Chuyita Gonzalez; 09/26/2021 9:12:30 AM hydrochlorothiazide Adverse Reaction; Updated By: Chuyita Gonzalez; 09/26/2021 9:12:30 AM Norvasc Adverse Reaction; Updated By: Chuyita Gonzalez; 09/26/2021 9:12:30 AM Penicillins Adverse Reaction; Updated By: Chuyita Gonzalez; 09/26/2021 9:12:30 AM intolerance Social History Problems Never a smoker No alcohol use No caffeine use No illicit drug use Review of Systems Constitutional: not feeling tired. Cardiovascular: chest pain and palpitations, but no intermittent leg claudication and as noted in HPI. Respiratory: no cough and no shortness of breath. Gastrointestinal: no change in bowel habits and no blood in stools. Integumentary: no skin rashes. Neurological: d (more content not included)... Normal [employer] Tobacco Screening.on 023 Adult depression screening assessment No [facility] [employer] DO Work Phone: Fall risk assessment a) No falls within the last year [facility] [employer] DO Work Phone: Tobacco use status CPHS b) No [facility] [employer] DO Work Phone: CBC AUTO DIFFon 10-04-2022 BASO # 0.0 103/ul Normal 0.0-0.1 [facility] Comment on above: Performed By: #### C BC #### [facility] [address] [place] [address] Dr. Madhuri Justice Basophils/100 WBC (Bld) 0.3 % Normal 0.2-2.0 [facility] Comment on above: Performed By: #### C BC #### [facility] [address] [place] [address] Dr. Madhuri Justice EO # 0.1 103/ul Normal 0.0-0.7 [facility] Comment on above: Performed By: #### C BC #### [facility] [address] [address] [address] Madhuri Justice Eosinophils/100 WBC (Bld) 1.7 % Normal 0.9-7.0 [facility] Comment on above: Performed By: #### C BC #### [facility] [address] [place] [address] Dr. Madhuri Justice Erythrocyte distribution width (RBC) [Ratio] 16.2 % Critically high 11.0-15.0 [facility] Comment on above: Performed By: #### C BC #### [facility] [address] [place] [address] Dr. Madhuri Justice Hematocrit (Bld) [Volume fraction] 33.0 % Critically low 36.0-48.0 [facility] Comment on above: Performed By: #### C BC #### [facility] [address] [place] [address] Dr. Madhuri Justice Hemoglobin (Bld) [Mass/Vol] 10.9 g/dL Critically low 12.0-16.0 [facility] Comment on above: Performed By: #### C BC #### [facility] [address] [place] [address] Dr. Madhuri Justice IG # 0.02 10e3/ul Normal 0.00-0.03 [facility] Comment on above: Performed By: #### C BC #### [facility] [address] [place] [address] Dr. Madhuri Justice IG % 0.3 % Normal 0.0-0.5 [facility] Comment on above: Performed By: #### C BC #### [facility] [address] [place] [address] Dr. Madhuri Justice LYMPH # 0.8 103/ul Critically low 1.2-3.8 [facility] Comment on above: Performed By: #### C BC #### [facility] [address] [place] [address] Dr. Madhuri Justice Lymphocytes/100 WBC (Bld) 13.4 % Critically low 20.5-60.0 [facility] Comment on above: Performed By: #### C BC #### [facility] [address] [place] [address] Dr. Madhuri Justice MANUAL DIFF REQ NO Normal [facility] Comment on above: Performed By: #### C BC #### [facility] [address] [place] [address] Dr. Madhuri Justice MCH (RBC) [Entitic mass] 24.4 pg Critically low 26.7-34.0 [facility] Comment on above: Performed By: #### C BC #### [facility] [address] [address] [address] Maduhri Justice MCHC (RBC) [Mass/Vol] 33.0 g/dL Normal 29.9-35.2 [facility] Comment on above: Performed By: #### C BC #### [facility] [address] [address] [address] Madhuri Justice MCV (RBC) [Entitic vol] 73.8 fL Critically low 81.0-99.0 [facility] Comment on above: Performed By: #### C BC #### [facility] [address] [address] [address] Madhuri Justice MONO # 0.5 103/ul Normal 0.3-0.8 [facility] Comment on above: Performed By: #### C BC #### [facility] [address] [place] [address] Dr. Madhuri Justice Monocytes/100 WBC (Bld) 8.0 % Normal 1.7-12.0 [facility] Comment on above: Performed By: #### C BC #### [facility] [address] [address] [address] Madhuri Justice NEUT # 4.6 103/ul Normal 1.4-6.5 [facility] Comment on above: Performed By: #### C BC #### [facility] [address] [place] [address] Dr. Madhuri Justice Neutrophils/100 WBC (Bld) 76.3 % Critically high 43.0-75.0 [facility] Comment on above: Performed By: #### C BC #### [facility] [address] [address] [address] Madhuri Justice Platelet mean volume (Bld) [Entitic vol] 9.5 fL Normal 9.5-13.5 [facility] Comment on above: Performed By: #### C BC #### [facility] [address] [place] [address] Dr. Madhuri Justice PLT 249 103/ul Normal 150-450 [facility] Comment on above: Performed By: #### C BC #### [facility] [address] [address] [address] Madhuri Justice RBC 4.47 106/ul Normal 4.20-5.40 [facility] Comment on above: Performed By: #### C BC #### [facility] [address] [address] [address] Madhuri Justice WBC 6.0 103/ul Normal 4.0-11.0 [facility] Comment on above: Performed By: #### C BC #### [facility] [address] [address] [address] Madhuri Justice LIPID PROFILEon 10-04-2022 CHOL-HDL RATIO NORM SEE BELOW Normal [facility] Comment on above: Result Comment: 3.3 - 4.4 LOW RISK 4.4 - 7.1 AVERAGE RISK 7.1 - 11.0 MODERATE RISK >11.0 HIGH RISK Performed By: #### L ACT #### [facility] [address] [place] [address] Dr. Madhuri Justice Cholesterol [Mass/Vol] 159 mg/dL Normal <=200 [facility] Comment on above: Performed By: #### L ACT #### [facility] [address] [place] [address] Dr. Madhuri Justice Cholesterol in HDL [Mass/Vol] 54 mg/dL Normal 40-60 [facility] Comment on above: Performed By: #### L ACT #### [facility] [address] [place] [address] Dr. Madhuri Justice Cholesterol in LDL [Mass/Vol] 84.4 mg/dL Normal [facility] Comment on above: Performed By: #### L ACT #### [facility] [address] [place] [address] Dr. Madhuri Justice Cholesterol.total/Chol esterol in HDL [Mass ratio] 2.9 {ratio} Normal [facility] Comment on above: Performed By: #### L ACT #### [facility] [address] [place] [address] Dr. Madhuri Justice HDL NORMAL > or = 60 mg/dl - LO W CARDIOVASCULAR RISK <40 mg/dl - HIGH CARDIOVASCULAR RISK Normal [facility] Comment on above: Performed By: #### L ACT #### [facility] [address] [place] [address] Dr. Madhuri Justice LDL CALC NORMAL SEE BELOW Normal [facility] Comment on above: Result Comment: <100 mg/dl OPTIMAL 100 - 129 mg/dl NEAR OR ABOVE OPTIMAL 130 - 159 mg/dl BORDERLINE HIGH 160 - 189 mg/dl HIGH >190 mg/dl VERY HIGH Performed By: #### L ACT #### [facility] [address] [place] [address] Dr. Madhuri Justice Triglyceride [Mass/Vol] 103 mg/dL Normal <=150 [facility] Comment on above: Performed By: #### L ACT #### [facility] [address] [place] [address] Dr. Madhuri Justice VLDL CALC 20.6 mg/dL Normal [facility] Comment on above: Performed By: #### L ACT #### [facility] [address] [place] [address] Dr. Madhuri Justice PROF 14(COMP METB)on 023 Albumin [Mass/Vol] 3.0 g/dL Critically low 3.4-5.0 [facility] Comment on above: Performed By: #### L IPID, CMP #### [facility] [address] [place] [address] Dr. Madhuri Justice Albumin/Globulin [Mass ratio] 0.8 {ratio} Normal [facility] Comment on above: Performed By: #### L IPID, CMP #### [facility] [address] [place] [address] Dr. Madhuri Justice ALP [Catalytic activity/Vol] 103 U/L Normal 46-116 [facility] Comment on above: Performed By: #### L IPID, CMP #### [facility] [address] [place] [address] Dr. Madhuri Justice ALT [Catalytic activity/Vol] 10 U/L Critically low 14-59 [facility] Comment on above: Performed By: #### L IPID, CMP #### [facility] [address] [place] [address] Dr. Madhuri Justice Anion gap [Moles/Vol] 10.5 mmol/L Normal [facility] Comment on above: Performed By: #### L IPID, CMP #### [facility] [address] [place] [address] Dr. Madhuri Justice AST [Catalytic activity/Vol] 13 U/L Critically low 15-37 [facility] Comment on above: Performed By: #### L IPID, CMP #### [facility] [address] [place] [address] Dr. Madhuri Justice Bilirubin [Mass/Vol] 0.6 mg/dL Normal 0.2-1.0 [facility] Comment on above: Performed By: #### L IPID, CMP #### [facility] [address] [place] [address] Dr. Madhuri Justice Calcium [Mass/Vol] 8.9 mg/dL Normal 8.5-10.1 [facility] Comment on above: Performed By: #### L IPID, CMP #### [facility] [address] [place] [address] Dr. Madhuri Justice Chloride [Moles/Vol] 105 mmol/L Normal 98-107 [facility] Comment on above: Performed By: #### L IPID, CMP #### [facility] [address] [place] [address] Dr. Madhuri Justice CO2 [Moles/Vol] 30.6 mmol/L Normal 21.0-32.0 [facility] Comment on above: Performed By: #### L IPID, CMP #### [facility] [address] [place] [address] Dr. Madhuri Justice Creatinine [Mass/Vol] 0.85 mg/dL Normal 0.55-1.02 [facility] Comment on above: Performed By: #### L IPID, CMP #### [facility] [address] [place] [address] Dr. Madhuri Justice EGFR-AF [facility] >60 Normal >=60 [facility] Comment on above: Performed By: #### L IPID, CMP #### [facility] [address] [place] [address] Dr. Madhuri Justice EGFR-NON AF [facility] >60 Normal >=60 [facility] Comment on above: Performed By: #### L IPID, CMP #### [facility] [address] [place] [address] Dr. Madhuri Justice Globulin (S) [Mass/Vol] 3.9 g/dL Normal [facility] Comment on above: Performed By: #### L IPID, CMP #### [facility] [address] [place] [address] Dr. Madhuri Justice Glucose [Mass/Vol] 112 mg/dL Critically high 74-106 T [facility] Comment on above: Performed By: #### L IPID, CMP #### [facility] [address] [place] [address] Dr. Madhuri Justice Potassium [Moles/Vol] 4.1 mmol/L Normal 3.5-5.1 [facility] Comment on above: Performed By: #### L IPID, CMP #### [facility] [address] [place] [address] Dr. Madhuri Justice Protein [Mass/Vol] 6.9 g/dL Normal 6.4-8.2 [facility] Comment on above: Performed By: #### L IPID, CMP #### [facility] [address] [place] [address] Dr. Madhuri Justice Sodium [Moles/Vol] 142 mmol/L Normal 136-145 [facility] Comment on above: Performed By: #### L IPID, CMP #### [facility] [address] [place] [address] Dr. Madhuri Justice Urea nitrogen [Mass/Vol] 15.0 mg/dL Normal 7.0-18.0 [facility] Comment on above: Performed By: #### L IPID, CMP #### [facility] [address] [place] [address] Dr. Madhuri Justice Urea nitrogen/Creatinine [Mass ratio] 17.6 mg/mg Normal [facility] Comment on above: Performed By: #### L IPID, CMP #### [facility] [address] [place] [address] Dr. Madhuri Justice Activated partial thrombopla stin time (aPTT) in platelet poor plasma by coagulation aOrdered By: Robby York on 06-06-2022 aPTT Coag (PPP) [Time] 32.7 s 25.1-36.[address] [facility] Albumin [Mass/volume] in Ser um or PlasmaOrdered By: Robby York on 06-06-2022 Albumin [Mass/Vol] 2.8 g/dL 3.2-5.5 [facility] Automated erythrocytes count in urine sediment (number/area)Ordered By: Natalie Brian on 06-06-2022 RBC Auto (Urine sed) [#/Area] None seen [HPF] 0-4 [facility] Automated leukocytes count i n urine sediment (number/area)Ordered By: Natalie Brian on 06-06-2022 WBC Auto (Urine sed) [#/Area] 0-1 [HPF] 0-4 [facility] Basophils Auto (Bld) [#/Vol] Ordered By: Robby York on 06-06-2022 Basophils (Bld) [#/Vol] 0.0 10*3/uL 0.0-0.2 [facility] Basophils/100 WBC Auto (Bld) Ordered By: Robby York on 06-06-2022 Basophils/100 WBC (Bld) 0.5 % . [facility] Bilirubin Test strip Ql (U)O rdered By: Natalie Brian on 06-06-2022 Bilirubin Ql (U) Negative Negative [facility] Blood hemoglobin measurement (mass/volume)Ordered By: Robby York on 06-06-2022 Hemoglobin (Bld) [Mass/Vol] 9.3 g/dL 11.8-15.4 [facility] Blood leukocytes automated c ount (number/volume)Ordered By: Robby York on 06-06-2022 WBC (Bld) [#/Vol] 5.1 10*3/uL 4.5-11.0 [facility] COVID-19 SOFIAOrdered By: Chris York on 06-06-2022 SARS-CoV+SARS-CoV-2 (COVID-19) Ag IA.rapid Ql (Resp) Negative Negative [facility] Comment on above: This is a duplicate Joselyn SARS Antigen (TERE) result to be used for statistical tracking purpose only. Color Auto (U)Ordered By: Honorio Brian on 06-06-2022 Color (U) Yellow Yellow [facility] Creatinine and Glomerular fi ltration rate.predicted panel (S/P/Bld)Ordered By: Robby York on 06-06-2022 Creatinine [Mass/Vol] 0.84 mg/dL 0.44-1.03 [facility] Eosinophils Auto (Bld) [#/Vo l]Ordered By: Robby York on 06-06-2022 Eosinophils (Bld) [#/Vol] 0.1 10*3/uL 0.0-0.45 [facility] Eosinophils/100 WBC Auto (Bl d)Ordered By: Robby York on 06-06-2022 Eosinophils/100 WBC (Bld) 1.9 % . [facility] Erythrocyte distribution wid th Auto (RBC) [Ratio]Ordered By: Robby York on 06-06-2022 Erythrocyte distribution width (RBC) [Ratio] 16.7 % 11.9-15.3 [facility] Estimated glomerular filtrat ion rate (GFR) non- AmericanOrdered By: Robby York on 06-06-2022 GFR/1.73 sq M.predicted among non-blacks MDRD (S/P/Bld) [Vol rate/Area] > 60 mL/Min [facility] Globulin Calc (S) [Mass/Vol] Ordered By: Robby York on 06-06-2022 Globulin (S) [Mass/Vol] 2.9 g/dL [facility] Hematocrit Auto (Bld) [Volum e fraction]Ordered By: Robby York on 06-06-2022 Hematocrit (Bld) [Volume fraction] 29.5 % 34.0-46.4 [facility] Ketones Auto test strip (U) [Mass/Vol]Ordered By: Natalie Brian on 06-06-2022 Ketones (U) [Mass/Vol] Negative Negative [facility] and C hemistry - challengeOrdered By: Robby York on 06-06-2022 Natriuretic peptide B (Bld) [Mass/Vol] 37.0 pg/mL 5-100 [facility] - CoagulationOrde red By: Robby York on 06-06-2022 PT Coag (PPP) [Time] 17.4 s 9.0-12.9 [facility] - Hematology and Cell countsOrdered By: Robby York on 06-06-2022 Nucleated RBC/100 WBC (Bld) [Ratio] 0.0 % 0-0.5 [facility] - UrinalysisOrder ed By: Natalie Brian on 06-06-2022 Hyaline casts LM Ql (Urine sed) 0-8 [LPF] 0-8 [facility] Lymphocytes Auto (Bld) [#/Vo l]Ordered By: Robby York on 06-06-2022 Lymphocytes (Bld) [#/Vol] 0.7 10*3/uL 1.00-4.8 [facility] Lymphocytes/100 WBC Auto (Bl d)Ordered By: Robby York on 06-06-2022 Lymphocytes/100 WBC (Bld) 13.9 % . [facility] MCH Auto (RBC) [Entitic mass ]Ordered By: Robby York on 06-06-2022 MCH (RBC) [Entitic mass] 24.2 pg 24.7-34.3 [facility] MCHC Auto (RBC) [Mass/Vol]Or dered By: Robby York on 06-06-2022 MCHC (RBC) [Mass/Vol] 31.4 g/dL 32.0-35.0 [facility] MCV Auto (RBC) [Entitic vol] Ordered By: Robby York on 06-06-2022 MCV (RBC) [Entitic vol] 76.9 fL 80-100 [facility] Monocytes Auto (Bld) [#/Vol] Ordered By: Robby York on 06-06-2022 Monocytes (Bld) [#/Vol] 0.5 10*3/uL 0.0-0.8 [facility] Monocytes/100 WBC Auto (Bld) Ordered By: Robby York on 06-06-2022 Monocytes/100 WBC (Bld) 9.6 % . [facility] Neutrophils Auto (Bld) [#/Vo l]Ordered By: Robby York on 06-06-2022 Neutrophils (Bld) [#/Vol] 3.8 10*3/uL 1.8-7.7 [facility] Neutrophils/100 WBC Auto (Bl d)Ordered By: Robby York on 06-06-2022 Neutrophils/100 WBC (Bld) 74.1 % . [facility] Nitrite Test strip Ql (U)Ord ered By: Natalie Brian on 06-06-2022 Nitrite Ql (U) Negative Negative [facility] No Panel InformationOrdered By: Robby York on 06-06-2022 Estimated GFR () > 60 mL/Min [facility] [facility] Comment on above: GFR estimated refere nce range: According to KDOQI guidelines, <60 ml/min/1.73m2 is sufficient to diagnose a patient with chronic kidney disease. Pharmacy Creatinine Clearance (Chem 83.60 [facility] SARS Antigen (LFIA) [facility] Platelet mean volume Auto (B ld) [Entitic vol]Ordered By: Robby York on 06-06-2022 Platelet mean volume (Bld) [Entitic vol] 8.1 fL 6.3-10.7 [facility] Platelet poor plasma interna tional normalized ratio (INR) by coagulation assay (relatOrdered By: Robby York on 06-06-2022 INR Coag (PPP) [Relative time] 1.5 {INR} [facility] Comment on above: INR Therapeutic Rang e A) Pre- and Peroperative OAT started two weeks before surgery. NOT HIP SURGERY: 1.5 - 2.5 HIP SURGERY: 2 - 3 B) Primary and secondary prevention of venous THROMBOSIS: 2 - 3 C) Active venous thrombosis, pulmonary embolism and prevention of recurrent venous thrombosis: 2 - 3 D) Prevention of arterial thromboembolism including patients with mechanical heart valves: 3 - 4.5 Platelets Auto (Bld) [#/Vol] Ordered By: Robby York on 06-06-2022 Platelets (Bld) [#/Vol] 225 10*3/uL 150-450 [facility] Protein Auto test strip (U) [Mass/Vol]Ordered By: Natalie Brian on 06-06-2022 Protein (U) [Mass/Vol] Negative Negative Fi [facility] Protein [Mass/volume] in Ser um or PlasmaOrdered By: Robby York on 06-06-2022 Protein [Mass/Vol] 5.7 g/dL 6.1-7.9 [facility] RBC Auto (Bld) [#/Vol]Ordere d By: Robby York on 06-06-2022 RBC (Bld) [#/Vol] 3.84 10*6/uL 3.60-5.00 [facility] Serum or plasma alanine singleton otransferase measurement without P-5'-P (enzymatic activiOrdered By: Robby York on 06-06-2022 ALT No additional P-5'-P [Catalytic activity/Vol] 10 U/L 10-60 [facility] Serum or plasma albumin/glob ulin mass ratioOrdered By: Robby York on 06-06-2022 Albumin/Globulin [Mass ratio] 1.0 {ratio} [facility] Serum or plasma alkaline antwan sphatase measurement (enzymatic activity/volume)Ordered By: Robby York on 06-06-2022 ALP [Catalytic activity/Vol] 85 U/L 32-92 [facility] Serum or plasma anion gap de terminationOrdered By: Robby York on 06-06-2022 Anion gap [Moles/Vol] 12.5 mmol/L 6.0-15.[address] [facility] Serum or plasma aspartate am inotransferase measurement (enzymatic activity/volume)Ordered By: Robby York on 06-06-2022 AST [Catalytic activity/Vol] 15 U/L 10-42 [facility] Serum or plasma calcium arabella urement (mass/volume)Ordered By: Robby York on 06-06-2022 Calcium [Mass/Vol] 8.3 mg/dL 8.2-10.2 [facility] Serum or plasma chloride marlen surement (moles/volume)Ordered By: Robby York on 06-06-2022 Chloride [Moles/Vol] 106 mmol/L 95-114 [facility] Serum or plasma glucose arabella urement (mass/volume)Ordered By: Robby York on 06-06-2022 Glucose [Mass/Vol] 115 mg/dL 70-100 [facility] Comment on above: ADA recommended refe rence range Random Glucose Reference Range is dependent on time and content of last meal. Glucose of more than 200 mg/dL in a nonstressed, ambulatory subject supports the diagnosis of Diabetes Mellitus. Serum or plasma potassium me asurement (moles/volume)Ordered By: Robby York on 06-06-2022 Potassium [Moles/Vol] 3.7 mmol/L 3.5-5.1 [facility] Serum or plasma sodium measu rement (moles/volume)Ordered By: Robby York on 06-06-2022 Sodium [Moles/Vol] 140 mmol/L 136-146 [facility] Serum or plasma total biliru bin measurement (mass/volume)Ordered By: Robby York on 06-06-2022 Bilirubin [Mass/Vol] 0.4 mg/dL 0.3-1.2 [facility] Serum or plasma total carbon dioxide measurement (moles/volume)Ordered By: Robby York on 06-06-2022 CO2 [Moles/Vol] 25.2 mmol/L 22.0-30.0 [facility] Serum or plasma urea nitroge n measurement (mass/volume)Ordered By: Robby York on 06-06-2022 Urea nitrogen [Mass/Vol] 14 mg/dL 9-23 [facility] Specific gravity Auto test s trip (U) [Rel density]Ordered By: Natalie Brian on 06-06-2022 Specific gravity (U) [Rel density] 1.013 1.001-1.03 0 [facility] Squamous epithelial cells de tection in urine sediment by light microscopyOrdered By: Natalie Brian on 06-06-2022 Epithelial cells.squamous LM Ql (Urine sed) 0-1 [HPF] 0-2 [facility] Troponin I.cardiac [Mass/vol ume] in Serum or Plasma by High sensitivity methodOrdered By: Natalie Brian on 06-06-2022 Troponin I.cardiac High sensitivity method [Mass/Vol] 7 pg/mL 0-15 [facility] Urine bacteria detection by automated methodOrdered By: Natalie Brian on 06-06-2022 Bacteria Auto Ql (U) None seen None Seen [facility] Urine clarity by refractomet ry automatedOrdered By: Natalie Brian on 06-06-2022 Clarity Refractometry automated (U) Clear Clear [facility] Urine glucose measurement by automated test strip (mass/volume)Ordered By: Natalie Brian on 06-06-2022 Glucose Auto test strip (U) [Mass/Vol] Normal mg/dL Normal [facility] Urine hemoglobin detection b y automated test stripOrdered By: Natalie Brian on 06-06-2022 Hemoglobin Auto test strip Ql (U) Negative Negative [facility] Urine leukocyte esterase det ection by automated test stripOrdered By: Natalie Brian on 06-06-2022 Leukocyte esterase Auto test strip Ql (U) 2+ Negative [facility] Urobilinogen Auto test strip (U) [Mass/Vol]Ordered By: Natalie Brian on 06-06-2022 Urobilinogen (U) [Mass/Vol] Normal mg/dL Normal [facility] pH Auto test strip (U)Ordere d By: Natalie Brian on 06-06-2022 pH (U) 7.0 [pH] 5.0-9.0 [facility] Tobacco Screening.on 022 Adult depression screening assessment No [facility] [employer] DO Work Phone: Fall risk assessment a) No falls within the last year [facility] [address] [facility] [address] DO Work Phone: Tobacco use status CPHS b) No [facility] [employer] DO Work Phone: OVA AND PARASITE EXAMINATION on 12-27-2021 [employer] + Parasite Exam Final report Normal [facility] Comment on above: Result Comment: Thes e results were obtained using wet preparation(s) and trichrome stained smear. This test does not include testing for Cryptosporidium parvum, Cyclospora, or Microsporidia. Performed By: #### O VAPE #### [facility] [address] [address] [address] Madhuri Justice Result 1 Comment Normal [facility] Comment on above: Result Comment: No o va, cysts, or parasites seen. . One negative specimen does not rule out the possibility of a parasitic infection. Performed By: #### O VAPE #### [facility] [address] [place] [address] Dr. Madhuri Justice GIARDIA LAMBLIA AND CRYPTO D ETECTIONon 12-18-2021 Cryptosporidium EIA Negative Normal Negative [facility] Comment on above: Performed By: #### G IACRY #### [facility] [address] [place] [address] Dr. Madhuri Justice Giardia lamblia Ag, EIA Negative Normal Negative [facility] Comment on above: Performed By: #### G IACRY #### [facility] [address] [place] [address] Dr. Madhuri Justice C. DIFF PCRon 12-16-2021 C. DIFFICILE PCR Negative Normal NEGATIVE [facility] Comment on above: Performed By: #### C DIFPOC #### [facility] [address] [place] [address] Dr. Madhuri Justice CBC AUTO DIFFon 12-16-2021 BASO # 0.0 103/ul Normal 0.0-0.1 [facility] Comment on above: Performed By: #### C BC #### [facility] [address] [place] [address] Dr. Madhuri Justice Basophils/100 WBC (Bld) 0.4 % Normal 0.2-2.0 [facility] Comment on above: Performed By: #### C BC #### [facility] [address] [place] [address] Dr. Madhuri Justice EO # 0.1 103/ul Normal 0.0-0.7 [facility] Comment on above: Performed By: #### C BC #### [facility] [address] [place] [address] Dr. Madhuri Justice Eosinophils/100 WBC (Bld) 1.0 % Normal 0.9-7.0 [facility] Comment on above: Performed By: #### C BC #### [facility] [address] [place] [address] Dr. Madhuri Justice Erythrocyte distribution width (RBC) [Ratio] 16.2 % Critically high 11.0-15.0 [facility] Comment on above: Performed By: #### C BC #### [facility] [address] [place] [address] Dr. Madhuri Justice Hematocrit (Bld) [Volume fraction] 37.7 % Normal 36.0-48.0 [facility] Comment on above: Performed By: #### C BC #### [facility] [address] [place] [address] Dr. Madhuri Justice Hemoglobin (Bld) [Mass/Vol] 11.2 g/dL Critically low 12.0-16.0 [facility] Comment on above: Performed By: #### C BC #### [facility] [address] [place] [address] Dr. Madhuri Justice IG # 0.01 10e3/ul Normal 0.00-0.03 [facility] Comment on above: Performed By: #### C BC #### [facility] [address] [place] [address] Dr. Madhuri Justice IG % 0.1 % Normal 0.0-0.5 [facility] Comment on above: Performed By: #### C BC #### [facility] [address] [place] [address] Dr. Madhuri Justice LYMPH # 0.9 103/ul Critically low 1.2-3.8 [facility] Comment on above: Performed By: #### C BC #### [facility] [address] [place] [address] Dr. Madhuri Justice Lymphocytes/100 WBC (Bld) 12.2 % Critically low 20.5-60.0 [facility] Comment on above: Performed By: #### C BC #### [facility] [address] [place] [address] Dr. Madhuri Justice MANUAL DIFF REQ NO Normal [facility] Comment on above: Performed By: #### C BC #### [facility] [address] [place] [address] Dr. Madhuri Justice MCH (RBC) [Entitic mass] 24.7 pg Critically low 26.7-34.0 [facility] Comment on above: Performed By: #### C BC #### [facility] [address] [address] [address] Madhuri Justice MCHC (RBC) [Mass/Vol] 29.7 g/dL Critically low 29.9-35.2 [facility] Comment on above: Performed By: #### C BC #### [facility] [address] [place] [address] Dr. Madhuri Justice MCV (RBC) [Entitic vol] 83.0 fL Normal 81.0-99.0 [facility] Comment on above: Performed By: #### C BC #### [facility] [address] [place] [address] Dr. Madhuri Justice MONO # 0.6 103/ul Normal 0.3-0.8 [facility] Comment on above: Performed By: #### C BC #### [facility] [address] [place] [address] Dr. Madhuri Justice Monocytes/100 WBC (Bld) 7.7 % Normal 1.7-12.0 [facility] Comment on above: Performed By: #### C BC #### [facility] [address] [place] [address] Dr. Madhuri Justice NEUT # 5.7 103/ul Normal 1.4-6.5 [facility] Comment on above: Performed By: #### C BC #### [facility] [address] [place] [address] Dr. Madhuri Justice Neutrophils/100 WBC (Bld) 78.6 % Critically high 43.0-75.0 [facility] Comment on above: Performed By: #### C BC #### [facility] [address] [place] [address] Dr. Madhuri Justice Platelet mean volume (Bld) [Entitic vol] 10.4 fL Normal 9.5-13.5 [facility] Comment on above: Performed By: #### C BC #### [facility] [address] [place] [address] Dr. Madhuri Justice PLT 290 103/ul Normal 150-450 [facility] Comment on above: Performed By: #### C BC #### [facility] [address] [place] [address] Dr. Madhuri Justice RBC 4.54 106/ul Normal 4.20-5.40 [facility] Comment on above: Performed By: #### C BC #### [facility] [address] [place] [address] Dr. Madhuri Justice WBC 7.2 103/ul Normal 4.0-11.0 [facility] Comment on above: Performed By: #### C BC #### [facility] [address] [place] [address] Dr. Madhuri Justice ER URINE PROFILEon 2 Bilirubin Ql (U) Negative Normal NEGATIVE [facility] Comment on above: Performed By: #### E RUR #### [facility] [address] [place] [address] Dr. Madhuri Justice Clarity (U) CLEAR Normal CLEAR [facility] Comment on above: Performed By: #### E RUR #### [facility] [address] [place] [address] Dr. Madhuri Justice Color (U) YELLOW Normal YELLOW [facility] Comment on above: Performed By: #### E RUR #### [facility] [address] [place] [address] Dr. Madhuri Justice [place] A micrscopic examina tion will be performed if indicated. Normal [facility] Comment on above: Performed By: #### E RUR #### [facility] [address] [place] [address] Dr. Madhuri Justice Glucose Ql (U) Negative Normal NEGATIVE [facility] Comment on above: Performed By: #### E RUR #### [facility] [address] [place] [address] Dr. Madhuri Justice Hemoglobin Ql (U) Negative Normal NEGATIVE [facility] Comment on above: Performed By: #### E RUR #### [facility] [address] [place] [address] Dr. Madhuri Justice Ketones Ql (U) Negative Normal NEGATIVE [facility] Comment on above: Performed By: #### E RUR #### [facility] [address] [place] [address] Dr. Madhuri Justice LEUKOCYTES Negative Normal NEGATIVE [facility] Comment on above: Performed By: #### E RUR #### [facility] [address] [place] [address] Dr. Madhuri Justice Nitrite Ql (U) Negative Normal NEGATIVE [facility] Comment on above: Performed By: #### E RUR #### [facility] [address] [place] [address] Dr. Madhuri Justice pH (U) 6.0 [pH] Normal 5-9 [facility] Comment on above: Performed By: #### E RUR #### [facility] [address] [place] [address] Dr. Madhuri Justice SPEC GRAVITY 1.020 Normal 1.005-<=1. 025 [facility] Comment on above: Performed By: #### E RUR #### [facility] [address] [place] [address] Dr. Madhuri Justice UA PROTEIN Negative Normal NEGATIVE/ TRACE [facility] Comment on above: Performed By: #### E RUR #### [facility] [address] [place] [address] Dr. Madhuri Justice UR MICRO IND NOT INDICATED Normal [facility] Comment on above: Performed By: #### E RUR #### [facility] [address] [place] [address] Dr. Madhuri Justice Urobilinogen Qn (U) 0.2 {Bud'U}/dL Normal 0.2 - 1. 0 [facility] Comment on above: Performed By: #### E RUR #### [facility] [address] [place] [address] Dr. Madhuri Justice PROF 14(COMP METB)on 022 Albumin [Mass/Vol] 3.3 g/dL Critically low 3.4-5.0 [facility] Comment on above: Performed By: #### L ACT #### [facility] [address] [address] [address] Madhuri Justice Albumin/Globulin [Mass ratio] 0.8 {ratio} Normal [facility] Comment on above: Performed By: #### L ACT #### [facility] [address] [place] [address] Dr. Madhuri Justice ALP [Catalytic activity/Vol] 114 U/L Normal 46-116 [facility] Comment on above: Performed By: #### L ACT #### [facility] [address] [address] [address] Madhuri Justice ALT [Catalytic activity/Vol] 11 U/L Critically low 14-59 [facility] Comment on above: Performed By: #### L ACT #### [facility] [address] [place] [address] Dr. Madhuri Justice Anion gap [Moles/Vol] 10.6 mmol/L Normal [facility] Comment on above: Performed By: #### L ACT #### [facility] [address] [place] [address] Dr. Madhuri Justice AST [Catalytic activity/Vol] 13 U/L Critically low 15-37 [facility] Comment on above: Performed By: #### L ACT #### [facility] [address] [place] [address] Dr. Madhuri Justice Bilirubin [Mass/Vol] 0.5 mg/dL Normal 0.2-1.3 [facility] Comment on above: Performed By: #### L ACT #### [facility] [address] [place] [address] Dr. Madhuri Justice Calcium [Mass/Vol] 8.9 mg/dL Normal 8.5-10.1 [facility] Comment on above: Performed By: #### L ACT #### [facility] [address] [place] [address] Dr. Madhuri Justice Chloride [Moles/Vol] 103 mmol/L Normal 98-107 [facility] Comment on above: Performed By: #### L ACT #### [facility] [address] [place] [address] Dr. Madhuri Justice CO2 [Moles/Vol] 28.2 mmol/L Normal 22.0-30.0 [facility] Comment on above: Performed By: #### L ACT #### [facility] [address] [address] [address] Madhuri Justice Creatinine [Mass/Vol] 0.93 mg/dL Normal 0.52-1.04 [facility] Comment on above: Performed By: #### L ACT #### [facility] [address] [address] [address] Madhuri Justice EGFR-AF [facility] >60 Normal >=60 [facility] Comment on above: Performed By: #### L ACT #### [facility] [address] [address] [address] Madhuri Justice EGFR-NON AF [facility] 58 mL/min/1.73m2 Critically low >=60 [facility] Comment on above: Performed By: #### L ACT #### [facility] [address] [place] [address] Dr. Madhuri Justice Globulin (S) [Mass/Vol] 4.0 g/dL Normal [facility] Comment on above: Performed By: #### L ACT #### [facility] [address] [place] [address] Dr. Madhuri Justice Glucose [Mass/Vol] 121 mg/dL Critically high 74-106 T [facility] Comment on above: Performed By: #### L ACT #### [facility] [address] [place] [address] Dr. Madhuri Justice Potassium [Moles/Vol] 3.8 mmol/L Normal 3.4-5.0 [facility] Comment on above: Performed By: #### L ACT #### [facility] [address] [place] [address] Dr. Madhuri Justice Protein [Mass/Vol] 7.3 g/dL Normal 6.1-8.2 [facility] Comment on above: Performed By: #### L ACT #### [facility] [address] [place] [address] Dr. Madhuri Justice Sodium [Moles/Vol] 138 mmol/L Normal 137-145 [facility] Comment on above: Performed By: #### L ACT #### [facility] [address] [place] [address] Dr. Madhuri Justice Urea nitrogen [Mass/Vol] 14.0 mg/dL Normal 7.0-18.0 [facility] Comment on above: Performed By: #### L ACT #### [facility] [address] [place] [address] Dr. Madhuri Justice Urea nitrogen/Creatinine [Mass ratio] 15.1 mg/mg Normal [facility] Comment on above: Performed By: #### L ACT #### [facility] [address] [place] [address] Dr. Madhuri Justice AMYLASEon 10-26-2021 Amylase [Catalytic activity/Vol] 35 U/L Normal 31-110 [facility] Comment on above: Performed By: #### L ACT #### [facility] [address] [place] [address] Dr. Madhuri Justice CBC W MANUAL DIFFon 10-26-19 ANISOCYTOSIS SLIGHT Normal [facility] Comment on above: Performed By: #### C DANNY #### [facility] [address] [place] [address] Dr. Madhuri Justice ATYPICAL LYMPH # Normal [facility] Comment on above: Performed By: #### C BCMAN #### [facility] [address] [place] [address] Dr. Madhuri Justice ATYPICAL LYMPH % Normal [facility] Comment on above: Performed By: #### C BCMAN #### [facility] [address] [place] [address] Dr. Madhuri Justice BAND # 0.2 103/ul Normal 0.0-0.3 [facility] Comment on above: Performed By: #### C BCMAN #### [facility] [address] [place] [address] Dr. Madhuri Justice BAND % 2 % Normal 0-5 [facility] Comment on above: Performed By: #### C BCMAN #### [facility] [address] [place] [address] Dr. Madhuri Justice BASOM # 0.00 103/ul Normal 0.00-0.10 [facility] Comment on above: Performed By: #### C BCMAN #### [facility] [address] [place] [address] Dr. Madhuri Justice BASOM % 0.0 % Critically low 0.2-2.0 [facility] Comment on above: Performed By: #### C BCILIANA #### [facility] [address] [place] [address] Dr. Madhuri Justice BLAST # Normal [facility] Comment on above: Performed By: #### C BCILIANA #### [facility] [address] [place] [address] Dr. Madhuri Justice BLAST % Normal [facility] Comment on above: Performed By: #### C DANNY #### [facility] [address] [place] [address] Dr. Madhuri Justice CORRECTED WBC Normal 4.0-11.0 [facility] Comment on above: Performed By: #### C DANNY #### [facility] [address] [place] [address] Dr. Madhuri Justice EOS # 0.09 103/ul Normal 0.00-0.70 [facility] Comment on above: Performed By: #### C DANNY #### [facility] [address] [place] [address] Dr. Madhuri Justice EOS% 1.0 % Normal 0.9-7.0 [facility] Comment on above: Performed By: #### C DANNY #### [facility] [address] [place] [address] Dr. Madhuri Justice HCT 37.3 % Normal 36.0-48.0 [facility] Comment on above: Performed By: #### C DANNY #### [facility] [address] [place] [address] Dr. Madhuri Justice HGB 11.0 g/dl Critically low 12.0-16.0 [facility] Comment on above: Performed By: #### C DANNY #### [facility] [address] [place] [address] Dr. Madhuri Justice HYPOCHROMASIA SLIGHT Normal [facility] Comment on above: Performed By: #### C DANNY #### [facility] [address] [address] [address] Madhuri Justice LYMPHM # 0.86 103/ul Critically low 1.20-3.80 [facility] Comment on above: Performed By: #### C DANNY #### [facility] [address] [address] [address] Madhuri Justice LYMPHM% 10.0 % Critically low 20.5-60.0 [facility] Comment on above: Performed By: #### C DANNY #### [facility] [address] [address] [address] Madhuri Justice MCH 23.9 pg Critically low 26.7-34.0 [facility] Comment on above: Performed By: #### C DANNY #### [facility] [address] [place] [address] Dr. Madhuri Justice MCHC 29.5 g/dl Critically low 29.9-35.2 [facility] Comment on above: Performed By: #### C DANNY #### [facility] [address] [place] [address] Dr. Madhuri Justice MCV 81.1 fL Normal 81.0-99.0 [facility] Comment on above: Performed By: #### C DANNY #### [facility] [address] [place] [address] Dr. Madhuri Justice METAMYELOCYTE # Normal [facility] Comment on above: Performed By: #### C DANNY #### [facility] [address] [place] [address] Dr. Madhuri Justice METAMYELOCYTE % Normal [facility] Comment on above: Performed By: #### C DANNY #### [facility] [address] [place] [address] Dr. Madhuri Justice MONOM# 0.52 103/ul Normal 0.30-0.80 [facility] Comment on above: Performed By: #### C DANNY #### [facility] [address] [place] [address] Dr. Madhuri Justice MONOM% 6.0 % Normal 1.7-12.0 [facility] Comment on above: Performed By: #### C DANNY #### [facility] [address] [place] [address] Dr. Madhuri Justice MPV 9.8 fL Normal 9.5-13.5 [facility] Comment on above: Performed By: #### C DANNY #### [facility] [address] [place] [address] Dr. Madhuri Justice MYELOCYTE # Normal [facility] Comment on above: Performed By: #### C DANNY #### [facility] [address] [place] [address] Dr. Madhuri Justice MYELOCYTE % Normal [facility] Comment on above: Performed By: #### C DANNY #### [facility] [address] [place] [address] Dr. Madhuri Justice NRBC Normal [facility] Comment on above: Performed By: #### C DANNY #### [facility] [address] [place] [address] Dr. Madhuri Justice PLT 318 103/ul Normal 150-450 [facility] Comment on above: Performed By: #### C DANNY #### [facility] [address] [place] [address] Dr. Madhuri Justice RBC 4.60 106/ul Normal 4.20-5.40 [facility] Comment on above: Performed By: #### C DANNY #### [facility] [address] [place] [address] Dr. Madhuri Justice RDW 16.4 % Critically high 11.0-15.0 [facility] Comment on above: Performed By: #### C BCILIANA #### [facility] [address] [place] [address] Dr. Madhuri Justice SEG # 6.97 103/ul Critically high 1.40-6.50 [facility] Comment on above: Performed By: #### C DANNY #### [facility] [address] [place] [address] Dr. Madhuri Justice SEG % 81.0 % Critically high 43.0-75.0 [facility] Comment on above: Performed By: #### C DANNY #### [facility] [address] [place], [place] [address] Dr. Madhuri Justice WBC 8.6 103/ul Normal 4.0-11.0 [facility] Comment on above: Performed By: #### C DANNY #### [facility] [address] [place], [place] [address] ABD/PELV W CONon 10-26-[address] ABD/PELV W CON EXAMINATION: CT SCAN OF THE ABDOMEN AND PELVIS WITH INTRAVENOUS CONTRAST DATE OF EXAM: 10/26/2021 4:36 PM EST HISTORY: GENERALIZED ABDOMINAL PAIN in an 81-year-old female COMPARISON: None. TECHNIQUE: CT examination of the abdomen and pelvis was performed following the intravenous administration of IV contrast. CT dose lowering techniques were used, to include: automated exposure control, adjustment for patient size, and/or use of iterative reconstruction. Contrast: 100 mL Omnipaque 300 FINDINGS: Lines and Tubes: None Lower Chest: Lung bases demonstrate bibasilar atelectasis with enlarged heart. Free Air: None. Liver: The liver is enlarged. Gallbladder: Removed Common Bile Duct: Normal Pancreas: Normal Spleen: Normal Adrenal Glands: Right: Normal Left: Normal Kidneys: Right Kidney: Partially duplicated. Right Ureter: Normal. Left Kidney: Normal. Left Ureter: Normal. GI Tract: Stomach: Normal Small Bowel: Normal Appendix: Normal on coronal image 52 Large Bowel: Diverticulosis is demonstrated in the sigmoid colon. Retention of stool in the cecum. Mesentery/Peritoneum: Normal Vasculature: Aorta: Normal. IVC: Normal. Patsy Vein: Normal. Retroperitoneum: Normal Abdominal/Pelvic Wall: Left-sided fat filled inguinal hernia Bladder: Normal Reproductive: Hysterectomy. Musculoskeletal: Osseous structures demonstrate degenerative change. Free Fluid: None. IMPRESSION: 1. Diverticulosis. No CT evidence for acute diverticulitis. 2. Retention of stool in the cecum. 3. Hysterectomy. 4. Normal appendix. 5. Status post cholecystectomy. Electronically authenticated by: CLEMENTINA ALEXIS Date: 2021-10-26 18:59 Normal [facility] LACTATE/LACTIC ACIDon 2021 Lactate [Moles/Vol] 0.6 mmol/L Critically low 0.7-2.0 [facility] Comment on above: Performed By: #### L ACT #### [facility] [address] [place] [address] Dr. Madhuri Justice LIPASEon 10-26-2021 Lipase [Catalytic activity/Vol] 70.0 U/L Normal 23.0-300.0 [facility] Comment on above: Performed By: #### L ACT #### [facility] [address] [place] [address] Dr. Madhuri Justice PROF 14(COMP METB)on Albumin [Mass/Vol] 3.5 g/dL Normal 3.5-5.0 [facility] Comment on above: Performed By: #### L ACT #### [facility] [address] [place] [address] Dr. Madhuri Justice Albumin/Globulin [Mass ratio] 0.9 {ratio} Normal [facility] Comment on above: Performed By: #### L ACT #### [facility] [address] [place] [address] Dr. Madhuri Justice ALP [Catalytic activity/Vol] 119 U/L Normal 38-126 [facility] Comment on above: Performed By: #### L ACT #### [facility] [address] [place] [address] Dr. Madhuri Justice ALT [Catalytic activity/Vol] 13 U/L Normal 9-52 [facility] Comment on above: Performed By: #### L ACT #### [facility] [address] [place] [address] Dr. Madhuri Justice Anion gap [Moles/Vol] 10.7 mmol/L Normal [facility] Comment on above: Performed By: #### L ACT #### [facility] [address] [place] [address] Dr. Madhuri Justice AST [Catalytic activity/Vol] 15 U/L Normal 14-36 [facility] Comment on above: Performed By: #### L ACT #### [facility] [address] [place] [address] Dr. Madhuri Justice Bilirubin [Mass/Vol] 0.5 mg/dL Normal 0.2-1.3 [facility] Comment on above: Performed By: #### L ACT #### [facility] [address] [place] [address] Dr. Madhuri Justice Calcium [Mass/Vol] 9.5 mg/dL Normal 8.4-10.2 [facility] Comment on above: Performed By: #### L ACT #### [facility] [address] [place] [address] Dr. Madhuri Justice Chloride [Moles/Vol] 104 mmol/L Normal 98-107 [facility] Comment on above: Performed By: #### L ACT #### [facility] [address] [place] [address] Dr. Madhuri Justice CO2 [Moles/Vol] 28.0 mmol/L Normal 22.0-30.0 [facility] Comment on above: Performed By: #### L ACT #### [facility] [address] [place] [address] Dr. Madhuri Justice Creatinine [Mass/Vol] 0.85 mg/dL Normal 0.52-1.04 [facility] Comment on above: Performed By: #### L ACT #### [facility] [address] [place] [address] Dr. Madhuri Justice EGFR-AF [facility] >60 Normal >=60 [facility] Comment on above: Performed By: #### L ACT #### [facility] [address] [place] [address] Dr. Madhuri Justice EGFR-NON AF [facility] >60 Normal >=60 [facility] Comment on above: Performed By: #### L ACT #### [facility] [address] [place] [address] Dr. Madhuri Justice Globulin (S) [Mass/Vol] 4.1 g/dL Normal [facility] Comment on above: Performed By: #### L ACT #### [facility] [address] [place] [address] Dr. Madhuri Justice Glucose [Mass/Vol] 116 mg/dL Critically high 74-106 T [facility] Comment on above: Performed By: #### L ACT #### [facility] [address] [place] [address] [address] Madhuri Justice Potassium [Moles/Vol] 3.7 mmol/L Normal 3.4-5.0 [facility] Comment on above: Performed By: #### L ACT #### [facility] [address] [place] [address] [address] Madhuri Justice Protein [Mass/Vol] 7.6 g/dL Normal 6.1-8.2 [facility] Comment on above: Performed By: #### L ACT #### [facility] [address] [place] [address] [address] Madhuri Justice Sodium [Moles/Vol] 139 mmol/L Normal 137-145 [facility] Comment on above: Performed By: #### L ACT #### [facility] [address] [place] [address] [address] Madhuri Justice Urea nitrogen [Mass/Vol] 16.0 mg/dL Normal 7.0-17.0 [facility] Comment on above: Performed By: #### L ACT #### [facility] [address] [place] [address] [address] Madhuri Justice Urea nitrogen/Creatinine [Mass ratio] 18.8 mg/mg Normal [facility] Comment on above: Performed By: #### L ACT #### [facility] [address] [place] [address] [address] Madhuri Justice CBCon 02-08-2020 Erythrocyte distribution width (RBC) [Ratio] 16.9 % High 11.5 - 14.5 [facility] Comment on above: Performed By: #### C BC #### [address] [address] Hematocrit (Bld) [Volume fraction] 40.7 % Normal 36.0 - 46.0 [facility] Comment on above: Performed By: #### C BC #### [facility] [address] [place] [address] Hemoglobin (Bld) [Mass/Vol] 11.8 g/dL Low 12.0 - 16.0 [facility] Comment on above: Performed By: #### C BC #### [address] [address] MCHC (RBC) [Mass/Vol] 29.0 g/dL Low 32.0 - 36.0 [facility] Comment on above: Performed By: #### C BC #### [address] [address] MCV (RBC) [Entitic vol] 81 fL Normal 80 - 100 [facility] Comment on above: Performed By: #### C BC #### [address] [address] Platelets (Bld) [#/Vol] 296 10*3/uL Normal 150 - 450 [facility] Comment on above: Performed By: #### C BC #### [address] [address] RBC (Bld) [#/Vol] 5.01 x10E12/L Normal 4.00 - 5.20 [facility] Comment on above: Performed By: #### C BC #### [address] [address] WBC (Bld) [#/Vol] 7.0 10*3/uL Normal 4.4 - 11.3 [facility] Comment on above: Performed By: #### C BC #### [address] [address] CREATININEon 02-08-2020 Creatinine [Mass/Vol] mg/dL Normal >60 [facility] Comment on above: Result Comment: CALC ULATIONS OF ESTIMATED GFR ARE PERFORMED USING THE MDRD STUDY EQUATION FOR THE IDMS-TRACEABLE CREATININE METHODS. CLIN CHEM 2007;53:766-72 Performed By: #### C REAT #### [address] [address] Creatinine [Mass/Vol] 0.85 mg/dL Normal 0.50 - 1.05 [facility] Comment on above: Performed By: #### C REAT #### [address] [address] ELECTROLYTE PANELon 02-08-20 20 Anion gap [Moles/Vol] 12 mmol/L Normal 10 - 20 [facility] Comment on above: Performed By: #### E LECT #### [address] [address] Chloride [Moles/Vol] 104 mmol/L Normal 98 - 107 [facility] Comment on above: Performed By: #### E LECT #### [address] [address] HCO3 (Bld) [Moles/Vol] 29 mmol/L Normal 21 - 32 [facility] Comment on above: Performed By: #### E LECT #### [address] [address] Potassium [Moles/Vol] 3.9 mmol/L Normal 3.5 - 5.3 [facility] Comment on above: Performed By: #### E LECT #### [address] [address] Sodium [Moles/Vol] 141 mmol/L Normal 136 - 145 [facility] Comment on above: Performed By: #### E LECT #### [address] [address] UREA NITROGENon 02-08-2020 Urea nitrogen [Mass/Vol] 18 mg/dL Normal 6 - 23 [facility] Comment on above: Performed By: #### U GUSTAVO #### [address] [address] Creatinineon 11-24-2018 Creatinine mass conc 0.83 mg/dL Normal 0.50-1.05 [facility] Comment on above: Performed By: #### 1 [id number] #### [facility] [address] [place] [address] GFR/1.73 sq M.predicted MDRD vol rate/area mL/min/{1.73_m2} Normal [facility] Comment on above: Result Comment: Inte rpretation for Chronic Kidney Disease: Stages 1&2 >60 Healthy or potential kidney damage. Mild decrease of GFR. Stage 3 30-59 Moderate decrease of GFR. Stage 4 15-29 Severe decrease of GFR. Stage 5 <15 Kidney failure or on dialysis. Performed By: #### 1 [id number] #### [facility] [address] [place] [address] Electrolyte Panelon 11-24-19 19 Anion gap molar conc 13 mmol/L Normal 10-20 [facility] Comment on above: Performed By: #### 1 [id number] #### [facility] [address] [place] [address] Chloride molar conc 102 mmol/L Normal 98-107 [facility] Comment on above: Performed By: #### 1 [id number] #### [facility] [address] [place] [address] HCO3 molar conc (Bld) 28 mmol/L Normal 21-32 [facility] Comment on above: Performed By: #### 1 [id number] #### [facility] [address] [place] [address] Potassium molar conc 4.0 mmol/L Normal 3.5-5.1 [facility] Comment on above: Performed By: #### 1 [id number] #### [facility] [address] [place] [address] Sodium molar conc 139 mmol/L Normal 136-145 [facility] Comment on above: Performed By: #### 1 [id number] #### [facility] [address] [place] [address] Urea Nitrogenon 11-24-2018 Urea nitrogen mass conc 17 mg/dL Normal 6-23 [facility] Comment on above: Performed By: #### 1 [id number] #### [facility] [address] [place] [address] Creatinineon 11-18-2018 Creatinine mass conc 0.84 mg/dL Normal 0.50-1.05 [facility] Comment on above: Performed By: #### 1 [id number] #### [facility] [address] [place] [address] GFR/1.73 sq M.predicted MDRD vol rate/area mL/min/{1.73_m2} Normal [facility] Comment on above: Result Comment: Inte rpretation for Chronic Kidney Disease: Stages 1&2 >60 Healthy or potential kidney damage. Mild decrease of GFR. Stage 3 30-59 Moderate decrease of GFR. Stage 4 15-29 Severe decrease of GFR. Stage 5 <15 Kidney failure or on dialysis. Performed By: #### 1 [id number] #### [facility] [address] [place] [address] Electrolyte Panelon 11-18-19 19 Anion gap molar conc 10 mmol/L Normal 10-20 [facility] Comment on above: Performed By: #### 1 [id number] #### [facility] [address] [place] [address] Chloride molar conc 104 mmol/L Normal 98-107 [facility] Comment on above: Performed By: #### 1 [id number] #### [facility] [address] [place] [address] HCO3 molar conc (Bld) 30 mmol/L Normal 21-32 [facility] Comment on above: Performed By: #### 1 [id number] #### [facility] [address] [place] [address] Potassium molar conc 4.0 mmol/L Normal 3.5-5.1 [facility] Comment on above: Performed By: #### 1 [id number] #### [facility] [address] [place] [address] Sodium molar conc 140 mmol/L Normal 136-145 [facility] Comment on above: Performed By: #### 1 [id number] #### [facility] [address] [place] [address] Urea Nitrogenon 11-18-2018 Urea nitrogen mass conc 15 mg/dL Normal 6-23 [facility] Comment on above: Performed By: #### 1 [id number] #### [facility] [address] [place] [address] CBCon 2018 Erythrocyte distribution width Ratio (RBC) 16.3 % High 12.0-15.4 [facility] Comment on above: Performed By: #### 2 [id number] #### [facility] [address] [place] [address] Hematocrit Volume Fraction (Bld) 37.4 % Normal 36.5-46.6 [facility] Comment on above: Performed By: #### 2 [id number] #### [facility] [address] [place] [address] Hemoglobin mass conc (Bld) 11.0 g/dL Low 11.8-15.3 [facility] Comment on above: Performed By: #### 2 [id number] #### [facility] [address] [place] [address] MCH Entitic mass (RBC) 24.3 pg Low 27.5-33.0 [facility] Comment on above: Performed By: #### 2 [id number] #### [facility] [address] [place] [address] MCHC mass conc (RBC) 29.4 g/dL Low 30.1-35.0 [facility] Comment on above: Performed By: #### 2 [id number] #### [facility] [address] [place] [address] MCV Entitic volume (RBC) 82.6 fL Low 85.4-100.0 [facility] Comment on above: Performed By: #### 2 [id number] #### [facility] [address] [place] [address] NRBC Absolute 0.00 10*3/uL Normal [facility] Comment on above: Performed By: #### 2 [id number] #### [facility] [address] [place] [address] NRBC Automated 0.0 /100{WBCs} Normal [facility] Comment on above: Performed By: #### 2 [id number] #### [facility] [address] [place] [address] Platelet mean volume Entitic volume (Bld) 10.8 fL Normal 9.9-12.1 [facility] Comment on above: Performed By: #### 2 [id number] #### [facility] [address] [place] [address] Platelets #/vol (Bld) 314 10*3/uL Normal 155-404 [facility] Comment on above: Performed By: #### 2 [id number] #### [facility] [address] [place] [address] RBC #/vol (Bld) 4.53 10*6/uL Normal 3.85-5.10 [facility] Comment on above: Performed By: #### 2 [id number] #### [facility] [address] [place] [address] RDW SD 49.1 fL High 39.3-48.6 [facility] Comment on above: Performed By: #### 2 [id number] #### [facility] [address] [place] [address] WBC #/vol (Bld) 7.9 10*3/uL Normal 4.4-9.9 [facility] Comment on above: Performed By: #### 2 [id number] #### [facility] [address] [place] [address] Creatinineon 2018 Creatinine mass conc 0.85 mg/dL Normal 0.50-1.05 [facility] Comment on above: Performed By: #### 1 [id number] #### [facility] [address] [place] [address] GFR/1.73 sq M.predicted MDRD vol rate/area mL/min/{1.73_m2} Normal [facility] Comment on above: Result Comment: Inte rpretation for Chronic Kidney Disease: Stages 1&2 >60 Healthy or potential kidney damage. Mild decrease of GFR. Stage 3 30-59 Moderate decrease of GFR. Stage 4 15-29 Severe decrease of GFR. Stage 5 <15 Kidney failure or on dialysis. Performed By: #### 1 [id number] #### [facility] [address] [place] [address] Electrolyte Panelon 05-25-20 18 Anion gap molar conc 13 mmol/L Normal 10-20 [facility] Comment on above: Performed By: #### 1 [id number] #### [facility] [address] [place] [address] Chloride molar conc 102 mmol/L Normal 98-107 [facility] Comment on above: Performed By: #### 1 [id number] #### [facility] [address] [place] [address] HCO3 molar conc (Bld) 28 mmol/L Normal 21-32 [facility] Comment on above: Performed By: #### 1 [id number] #### [facility] [address] [place] [address] Potassium molar conc 3.9 mmol/L Normal 3.5-5.1 [facility] Comment on above: Performed By: #### 1 [id number] #### [facility] [address] [place] [address] Sodium molar conc 139 mmol/L Normal 136-145 [facility] Comment on above: Performed By: #### 1 [id number] #### [facility] [address] [place] [address] Urea Nitrogenon 2018 Urea nitrogen mass conc 15 mg/dL Normal 6-23 [facility] Comment on above: Performed By: #### 1 [id number] #### [facility] [address] [place] [address] Vital Signs Date Time Vital Sign Value Performing Clinician Facility 09-18-2023 10:31-0500 Body height 160 cm Charmaine Tilley MD Work Phone: [facility] 09-18-2023 10:31-0500 Body mass index (BMI) [Ratio] 36.31 kg/m2 Charmaine Tilley MD Work Phone: [facility] 09-18-2023 10:31-0500 Body weight 92.99 kg Charmaine Tilley MD Work Phone: [facility] 09-18-2023 10:31-0500 Diastolic blood pressure 72 mm[Hg] Charmaine Tilley MD Work Phone: [facility] 09-18-2023 10:31-0500 Heart rate 70 /min Charmaine Tilley MD Work Phone: [facility] 09-18-2023 10:31-0500 Systolic blood pressure 122 mm[Hg] Charmaine Tilley MD Work Phone: [facility] 09-01-2023 10:54-0500 Diastolic blood pressure 65 mm[Hg] DO Raghav Pineda Work Phone: [facility] 09-01-2023 10:54-0500 Heart rate 65 /min DO Raghav Pineda Work Phone: [facility] 09-01-2023 10:54-0500 Respiratory rate 18 /min DO Raghav Pineda Work Phone: [facility] 09-01-2023 10:54-0500 SaO2% (BldA) [Mass fraction] 95 % DO Raghav Pineda Work Phone: [facility] 09-01-2023 10:54-0500 Systolic blood pressure 149 mm[Hg] DO Raghav Pineda Work Phone: [facility] 09-01-2023 09:33-0500 Body height 160.02 cm DO Raghav Pineda Work Phone: [facility] 09-01-2023 09:33-0500 Body weight 92 kg DO Raghav Pineda Work Phone: [facility] 09-01-2023 09:31-0500 Body temperature 97.4 [degF] DO Raghav Pineda Work Phone: [facility] 08-18-2023 08:38-0500 Diastolic blood pressure 82 mm[Hg] Charmaine Tilley MD Work Phone: [facility] 08-18-2023 08:38-0500 Systolic blood pressure 138 mm[Hg] Charmaine Tilley MD Work Phone: [facility] 08-18-2023 08:32-0500 Body height 160 cm Charmaine Tilley MD Work Phone: [facility] 08-18-2023 08:32-0500 Body mass index (BMI) [Ratio] 36.31 kg/m2 Charmaine Tilley MD Work Phone: [facility] 08-18-2023 08:32-0500 Body weight 92.99 kg Charmaine Tilley MD Work Phone: [facility] 08-18-2023 08:32-0500 Heart rate 60 /min Charmaine Tilley MD Work Phone: [facility] 07-27-2023 16:00-0400 Diastolic blood pressure 72 mm[Hg] DO Raghav Pineda Work Phone: [facility] 07-27-2023 16:00-0400 Heart rate 77 /min DO Raghav Pineda Work Phone: [facility] 07-27-2023 16:00-0400 Respiratory rate 23 /min DO Raghav Pineda Work Phone: [facility] 07-27-2023 16:00-0400 SaO2% (BldA) [Mass fraction] 97 % DO Raghav Pineda Work Phone: [facility] 07-27-2023 16:00-0400 Systolic blood pressure 160 mm[Hg] DO Raghav Pineda Work Phone: [facility] 07-27-2023 12:05-0400 Body height 160.02 cm DO Raghav Pineda Work Phone: [facility] 07-27-2023 12:05-0400 Body temperature 97.5 [degF] DO Raghav Pineda Work Phone: [facility] 07-27-2023 12:05-0400 Body weight 94.5 kg DO Raghav Pineda Work Phone: [facility] 04-16-2023 10:48-0400 Body height 162.56 cm Raghav Pineda Work Phone: [facility] 250 DO Work Phone: 04-16-2023 10:48-0400 Body mass index (BMI) [Ratio] 34.87 kg/m2 Raghav Pineda Work Phone: [facility] 250 DO Work Phone: 04-16-2023 10:48-0400 Body surface area Derived from formula 1.97 m2 Raghav Pineda Work Phone: [facility] 250 DO Work Phone: 04-16-2023 10:48-0400 Body weight 92.14 kg Raghav Irvin Stephen Work Phone: [facility] 250 DO Work Phone: 04-16-2023 10:48-0400 Diastolic blood pressure 78 mm[Hg] Raghav Pineda Work Phone: [facility] 250 DO Work Phone: 04-16-2023 10:48-0400 Heart rate 64 /min Raghav Pineda Work Phone: [facility] 250 DO Work Phone: 04-16-2023 10:48-0400 Systolic blood pressure 138 mm[Hg] Raghav Pineda Work Phone: [facility] DO Work Phone: 03-19-2023 22:00-0400 Diastolic blood pressure 67 mm[Hg] DO Raghav Pineda Work Phone: [facility] 03-19-2023 22:00-0400 Systolic blood pressure 146 mm[Hg] DO Raghav Pineda Work Phone: [facility] 03-19-2023 21:08-0400 Heart rate 63 /min DO Raghav Pineda Work Phone: [facility] 03-19-2023 21:04-0400 Respiratory rate 18 /min DO Raghav Stephen Work Phone: [facility] 03-19-2023 21:04-0400 SaO2% (BldA) [Mass fraction] 98 % DO Raghav Pineda Work Phone: [facility] 03-19-2023 20:10-0400 Body height 162.56 cm DO Raghav Pineda Work Phone: [facility] 03-19-2023 20:10-0400 Body temperature 97.8 [degF] DO Raghav Pineda Work Phone: [facility] 03-19-2023 20:10-0400 Body weight 81.64 kg DO Raghav Pineda Work Phone: [facility] 10-14-2022 12:07-0500 Diastolic blood pressure 68 mm[Hg] Raghav Pineda Work Phone: [facility] 250 DO Work Phone: 10-14-2022 12:07-0500 Systolic blood pressure 128 mm[Hg] Raghav Pineda Work Phone: [facility] 250 DO Work Phone: 10-14-2022 11:53-0500 Body height 162.56 cm Raghav Pineda Work Phone: [facility] 250 DO Work Phone: 10-14-2022 11:53-0500 Body mass index (BMI) [Ratio] 31.93 kg/m2 Raghav Pineda Work Phone: [facility] 250 DO Work Phone: 10-14-2022 11:53-0500 Body surface area Derived from formula 1.9 m2 Raghav Pineda Work Phone: [facility] DO Work Phone: 10-14-2022 11:53-0500 Body weight 84.37 kg Raghav Pineda Work Phone: [facility] DO Work Phone: 10-14-2022 11:53-0500 Diastolic blood pressure 72 mm[Hg] Raghav Pineda Work Phone: [facility] 250 DO Work Phone: 10-14-2022 11:53-0500 Heart rate 65 /min Raghav Pineda Work Phone: [facility] 250 DO Work Phone: 10-14-2022 11:53-0500 Systolic blood pressure 144 mm[Hg] Raghav Pineda Work Phone: [facility] DO Work Phone: 07-24-2022 15:30-0400 Body height 165.1 cm Isrrael Barnettormack Other [facility] [employer] Other 07-24-2022 15:30-0400 Body mass index (BMI) [Ratio] 28.29 kg/m2 Isrrael Cloudack Other [facility] [employer] Other 07-24-2022 15:30-0400 Body weight 77.11 kg Isrrael Aparicio Other [facility] [employer] Other 06-06-2022 09:47-0400 Diastolic blood pressure 66 mm[Hg] DO Raghav Pineda Work Phone: [facility] 06-06-2022 09:47-0400 Heart rate 71 /min DO Raghav Pineda Work Phone: [facility] 06-06-2022 09:47-0400 Respiratory rate 20 /min DO Raghav Pineda Work Phone: [facility] 06-06-2022 09:47-0400 SaO2% (BldA) [Mass fraction] 97 % DO Raghav Pineda Work Phone: [facility] 06-06-2022 09:47-0400 Systolic blood pressure 145 mm[Hg] DO Raghav Pineda Work Phone: [facility] 06-06-2022 05:51-0400 Body height 162.56 cm DO Raghav Pineda Work Phone: [facility] 06-06-2022 05:51-0400 Body temperature 97.7 [degF] DO Raghav Pineda Work Phone: [facility] 06-06-2022 05:51-0400 Body weight 170 kg DO Raghav Stephen Work Phone: [facility] 03-04-2022 15:49-0400 Body height 162.56 cm Raghav Pineda Work Phone: [facility] 250 DO Work Phone: 03-04-2022 15:49-0400 Body mass index (BMI) [Ratio] 31.58 kg/m2 Raghav Pineda Work Phone: [facility] 250 DO Work Phone: 03-04-2022 15:49-0400 Body surface area Derived from formula 1.89 m2 Raghav Pineda Work Phone: [facility] DO Work Phone: 03-04-2022 15:49-0400 Body weight 83.46 kg Raghav Pineda Work Phone: [facility] DO Work Phone: 03-04-2022 15:49-0400 Diastolic blood pressure 62 mm[Hg] Raghav Pineda Work Phone: [facility] DO Work Phone: 03-04-2022 15:49-0400 Heart rate 69 /min Raghav Pineda Work Phone: [facility] DO Work Phone: 03-04-2022 15:49-0400 Systolic blood pressure 112 mm[Hg] Raghav Pineda Work Phone: [facility] 250 DO Work Phone: Encounters Encounter Date Encounter Type Care Provider Facility Start: 02-01-2024 End: 02-01-2024 ambulatory RAGHAV PINEDA Not Available Start: 01-26-2024 End: 01-27-2024 ambulatory PRISCA jackson Start: 01-20-2024 End: 01-20-2024 ambulatory ADALI WOODS Not Available Start: 12-09-2023 End: 12-09-2023 ambulatory SUSAN Byrne NOEMIJoshua Not Available Start: 12-01-2023 End: 12-01-2023 ambulatory LULI BACON Not Available Start: 11-05-2023 End: 11-05-2023 ambulatory ELTON OSCAR Not Available Start: 10-21-2023 End: 10-21-2023 ambulatory ADALI WOODS Not Available Start: 09-18-2023 End: 09-18-2023 ambulatory [facility] Ambulatory Start: 09-18-2023 End: 09-18-2023 Office outpatient visit 25 minutes Charmaine Tilley MD Work Phone: [facility] Comment on above: Paroxysmal atrial fi brillation (CMS/HCC) (Primary Dx); Essential hypertension, benign; Never smoked any substance; High risk medication use; Class II obesity; Premature atrial contractions Start: 09-01-2023 End: 09-01-2023 Emergency department patient visit Natalie Brian Facility:[facility] Start: 09-01-2023 End: 09-01-2023 Emergency department patient visit DO Raghav Pineda Work Phone: [facility] Work Phone: Start: 08-24-2023 End: 08-24-2023 ambulatory RAGHAV PINEDA Not Available Start: 08-18-2023 End: 08-18-2023 ambulatory [facility] [address] Ambulatory Start: 08-18-2023 End: 08-18-2023 Office outpatient visit 10 minutes Charmaine Tilley MD Work Phone: [facility] Comment on above: Essential hypertensi on, benign Start: 07-27-2023 End: 07-27-2023 Emergency department patient visit Natalie Brian Facility:[facility] Start: 07-27-2023 End: 07-27-2023 Emergency department patient visit DO Raghav Stephen Work Phone: [facility] Work Phone: Start: 07-23-2023 End: 07-23-2023 ambulatory [facility] Ambulatory Start: 07-10-2023 End: 07-10-2023 ambulatory [facility] Ambulatory Start: 04-16-[address] Charmaine Tilley Facility: Start: 04-16-2023 Office outpatient visit 25 minutes Raghav Yinger Work Phone: [facility] DO Work Phone: Start: 04-02-2023 Rx Renewal Raghav Pineda Work Phone: [facility] DO Work Phone: Start: 03-19-2023 End: 03-20-2023 Emergency department patient visit Gonzalo Smith Jr Facility:[facility] Start: 03-19-2023 End: 03-19-2023 Emergency department patient visit DO Raghav Yinger Work Phone: [facility] Work Phone: Start: 03-19-2023 Rx Renewal Raghav Pineda Work Phone: [facility] 250 DO Work Phone: Start: 03-15-2023 Rx Renewal Raghav Pineda Work Phone: [facility] 250 DO Work Phone: Start: 10-14-2022 Office outpatient visit 25 minutes Raghav Pineda Work Phone: [facility] 250 DO Work Phone: Start: 10-14-[address] Charmaine Tilley Facility: Start: 10-08-2022 Rx Renewal Raghav Pineda Work Phone: [facility] 250 DO Work Phone: Start: 10-04-2022 End: 10-05-[address] DOCTOR HARDY Facility:[facility] Start: 09-29-2022 End: 09-29-[address] RAGHAV PINEDA Facility:[facility] Start: 09-10-2022 Telephone encounter Raghav gomes Work Phone: [facility] 250 DO Work Phone: Start: 09-06-2022 End: 09-06-[address] RAGHAV PINEDA Facility:[facility] Start: 07-24-2022 End: 07-24-2022 ambulatory Isrrael Aparicio Other [facility] [employer] Other Start: 07-24-2022 Office outpatient ne w 45 minutes Isrrael Aparicio [facility] Start: 06-06-2022 End: 06-06-2022 Emergency department patient visit DO Raghav Pineda Work Phone: [facility] Start: 03-04-2022 Office outpatient visit 25 minutes Raghav Pineda Work Phone: [facility] [place] DO Work Phone: Start: 01-14-2022 End: 01-14-[address] RAGHAV PINEDA Facility:[facility] Start: 01-10-2022 End: 01-10-2022 ambulatory George Adams Other [facility] [employer] Other Start: 01-10-2022 Telephone encounter George Adams [facility] G[facility] Start: 12-17-2021 AUDIT Raghav Pineda Work Phone: [facility] [facility] DO Work Phone: Start: 12-16-2021 End: 12-17-[address] RAGHAV PINEDA Facility:[facility] Start: 10-26-2021 End: 10-26-[address] HIRO TOMPKINS Facility:[facility] Start: 08-20-2021 Telephone encounter Raghav gomes Work Phone: [facility] [address] [place] Work Phone: Start: 11-24-2018 Patient encounter procedure JES KEITH Facility:[id number] Start: 11-18-2018 Patient encounter procedure JES KEITH Facility:[id number] Start: 08-28-2018 Patient encounter procedure CHARMAINE TILLEY Facility:[id number] Procedures Date Procedure Procedure Detail Performing Clinician Start: 09-18-2023 ECG 12-LEAD RAGHAV Delaney Start: 09-18-2023 Ecg routine ecg w/le ast 12 lds w/i&r Charmaine Tilley MD Work Phone: Start: 09-01-2023 Plain chest X-ray DO Pa mitra Pineda Work Phone: Start: 08-18-2023 FOLLOW UP IN CARDIOLOGY RAGHAV PINEDA Start: 07-27-2023 CT of abdomen and pe lvis without contrast DO Raghav Pineda Work Phone: Start: 07-27-2023 Plain chest X-ray DO Pa mitra Stephen Work Phone: Start: 06-06-2022 CT of abdomen and pe lvis without contrast DO Raghav Pineda Work Phone: Start: 06-06-2022 Plain chest X-ray DO Pa mitra Stephen Work Phone: Appendectomy Raghav Pineda Work Phone: Cataract surgery Raghav sullivan Work Phone: Cholecystectomy Raghav Davenport r Work Phone: Colonoscopy Raghav Pineda Work Phone: Hysterectomy Raghav Pineda Work Phone: SARS Antigen (LFIA) DO Raghav Pineda Work Phone: Surgical procedure Raghav santos Work Phone: Plan of Treatment Date Care Activity Detail Author Start: 01-15-2032 DTaP/Tdap/Td Vaccines (3 - Td or Tdap) DTaP/Tdap/Td Vaccines (3 - Td or Tdap) [facility] Start: 04-13-2024 End: 04-13-2024 Patient encounter procedure 04/13/2024 11:10 AM EDT Office Visit [facility] [address] [facility] [address] [place] [address] Charmanie Tilley MD [address] [place] [address] [facility] Start: 09-29-2023 FUV, Provider: Charmaine Tilley, Status: Pen, Time: 10:40 AM FUV, Provider: Charmaine Tilley, Status: Pen, Time: 10:40 AM [facility] 250 DO Work Phone: Start: 09-29-2023 End: 09-29-2023 Patient encounter procedure 09/29/2023 10:40 AM EST Office Visit [facility] [address] [place] [id number] Charmaine Tilley MD [address] [place] [address] [facility] Start: 05-29-2023 Influenza vaccination Influenza Vaccine (#1) [facility] Start: 04-16-2023 FUV, Provider: Charmaine Tilley, Status: Pen, Time: 10:40 AM FUV, Provider: Charmaine Tilley, Status: Pen, Time: 10:40 AM [facility] DO Work Phone: Start: 03-19-2023 Plain chest X-ray XR chest 2V* [facility] Start: 03-19-2023 XR Chest 2 Views [facility] Start: 10-14-2022 FUV, Provider: Charmaine Tilley, Status: Pen, Time: 11:40 AM FUV, Provider: Charmaine Tilley, Status: Pen, Time: 11:40 AM [facility] 250 DO Work Phone: Start: 09-10-2022 FUV, Provider: Charmaine Tilley, Status: Pen, Time: 10:40 AM FUV, Provider: Charmaine Tilley, Status: Pen, Time: 10:40 AM [facility] DO Work Phone: Start: 03-04-2022 FUV, Provider: Charmaine Tilley, Status: Pen, Time: 3:30 PM FUV, Provider: Charmaine Tilley, Status: Pen, Time: 3:30 PM [facility] 250 DO Work Phone: Start: 11-12-2021 COVID-19 Vaccine (4 - Pfizer series) COVID-19 Vaccine (4 - Pfizer series) [facility] Start: 10-31-2021 FUV, Provider: Charmaine Tilley, Status: Pen, Time: 9:15 AM FUV, Provider: Charmaine Tilley, Status: Pen, Time: 9:15 AM [facility] [address] [place] Work Phone: Start: 09-08-2017 Pneumococcal Vaccine: 65+ Years (2 - PPSV23 or PCV20) Pneumococcal Vaccine: 65+ Years (2 - PPSV23 or PCV20) [facility] Start: 1991 Zoster Vaccines (1 of 2) Zoster Vaccines (1 of 2) [facility] Start: 1959 Diabetes mellitus screening Diabetes Screening [facility] Start: 1941 Lipid panel Lipid Panel [facility] Start: 1941 Medicare Annual Wellness Visit Medicare Annual Wellness Visit (AWV) [facility] Start: 1941 Screening for osteoporosis Bone Density Scan [facility] Patient Education [facility] Work Phone: Patient referral [facility] Work Phone: Immunizations Immunization Date Immunization Notes Care Provider Fa cility 01-14-2022 diphtheria, tetanus toxoids and pertussis vaccine Raghav Pineda Work Phone: [facility] 250 DO Work Phone: 01-14-2022 tetanus toxoid, redu juan pablo diphtheria toxoid, and acellular pertussis vaccine, adsorbed Charmaine Tilley MD Work Phone: [facility] Work Phone: 09-17-2021 Pfizer-BioNTech COVID-19 Vacc 30 MCG/0.3ML Intramuscular Suspension Raghav Pineda Work Phone: [facility] 250 DO Work Phone: 02-04-2021 Pfizer-BioNTech COVID-19 Vacc 30 MCG/0.3ML Intramuscular Suspension Raghav Pineda Work Phone: [facility] 250 DO Work Phone: 01-07-2021 Pfizer-BioNTech COVID-19 Vacc 30 MCG/0.3ML Intramuscular Suspension Raghav Pineda Work Phone: [place] [address] DO Work Phone: 09-08-2016 pneumococcal conjuga te vaccine, 13 valent Raghav Pineda Work Phone: [place] [address] DO Work Phone: Payers Date Payer Category Payer Self-pay [id number] 2006 Medicare [id number] 1959 Medicare [id number] 1959 Unknown [id number] 2. [id number] 1941 Unknown [id number] 2.16.8 40.1.105832.3.579.2.355 1941 Unknown [id number] 2.16.8 40.1.489937.3.579.2.355 1941 Unknown [id number] 2.16.8 40.1.555431.3.579.2.355 1941 Unknown [id number] 2.16.84 0.1.747367.3.579.2.593 1941 Unknown [id number] 2.16.84 0.1.388021.3.579.2.593 1941 Unknown [id number] 2.16.84 0.1.055860.3.579.2.593 1941 Unknown [id number] 2.16.84 0.1.498707.3.579.2.593 1941 Unknown [id number] 2.16.84 0.1.475841.3.579.2.593 1941 Unknown [id number] 2.16.84 0.1.683020.3.579.2.593 1941 Unknown [id number] 2.16. 840.1.640174.3.579.2.356 1941 Unknown [id number] 2.16. 840.1.967309.3.579.2.356 1941 Unknown [id number] 2.16.8 40.1.477355.3.579.2.1244 1941 Unknown [id number] 2.16.8 40.1.982419.3.579.2.1244 1941 Unknown [id number] 2.16.8 40.1.962168.3.579.2.1244 1941 Unknown [id number] 2.16.8 40.1.767305.3.579.2.1244 1941 Unknown [id number] 2.16.8 40.1.290610.3.579.2.1286 1941 Unknown [id number] 2.16.84 0.1.943470.3.579.2.1259 1941 Unknown [id number] 2.16.84 0.1.699253.3.579.2.1259 1941 Unknown [id number] 2.16.84 0.1.182793.3.579.2.1259 1941 Unknown [id number] 2.16.84 0.1.140281.3.579.2.1259 1941 Unknown [id number] 2.16.84 0.1.698387.3.579.2.1259 1941 Unknown [id number] 2.16.84 0.1.145613.3.579.2.1259 1941 Unknown [id number] 2.16.84 0.1.245416.3.579.2.1259 1941 Unknown [id number] 2.16.840 .1.826355.3.579.2.1259 Medicare [id number] Unknown [id number] Unknown Unknown [facility] [id number] Unknown [id number] 2.16.8 40.1.001903.3.579.2.531 Unknown [id number] 2.16.8 40.1.640405.3.579.2.531 Unknown [id number] 2.16.8 40.1.615881.3.579.2.531 Social History Date Type Detail Facility Start: 07-23-2023 End: 09-18-2023 Never a smoker Never a smoker [facility] 250 DO Work Phone: Start: 07-23-2023 End: 09-18-2023 Sex Assigned At [facility] [employer] Other Start: 06-06-2022 End: 07-10-2023 Tobacco smoking status NHIS Never smoked tobacco (finding) [facility] Start: 1940 Sex Assigned At Female [facility] [place] Start: 07-10-2023 Tobacco use and exposure Smokeless tobacco non-user [facility] Work Phone: Start: 1940 Sex Assigned At Not on file [facility] Work Phone: Start: 08-08-2023 End: 09-18-2023 Exposure to SARS-CoV-2 (event) Not sure [facility] Start: 09-18-2023 Alcohol intake Lifetime non-d reagan (finding) [facility] Work Phone: History of Present illness Narrative 09-18-2023 Charmaine Tilley MD - 09/18/2023 10:20 AM EST Note Date & Type Note Facility 09-18-2023 History of Present illness Narrative Subjective Jessy Dow is a 83 y.o. female Chief Complaint Follow-up HPI Patient is in the office for follow-up accompanied by her daughter. She was in the ER recently for palpitations that turned out to be due to premature ectopic beats and was slightly hypertensive which was easily corrected. She is doing well since and denies any symptoms of breakthrough atrial fibrillation and has no orthopnea PND or lower extremity edema and no syncope or presyncope. The record from the visit to the ER were reviewed by myself and shared with the patient and her daughter. Her examination today was unremarkable. EKG confirmed normal sinus rhythm with right bundle branch block. ASSESSMENT AND PLAN: 1. Paroxysmal atrial fibrillation, on flecainide and Eliquis. The patient is on a very small dose flecainide due to previous intolerance to higher dose with severe bradycardia 2. High-risk medication, Eliquis and flecainide, so far both are well-tolerated at the present doses 3. Class II obesity, encouraged the patient to walk and cut back calorie intake. 4. Hypertension, presently controlled. 5. History of severe diverticulitis which seems to be getting under control. 6. Chronic venous insufficiency bilaterally leading to significant varicose vein and mild lower extremity edema. Leg elevation when possible and compression stockings were recommended. No medical therapy is recommended Charmaine Tilley MD, FACC Review of Systems Cardiovascular: Positive for irregular heartbeat. All other systems reviewed and are negative. Visit Vitals BP 122/72 (BP Location: Left arm, Patient Position: Sitting) Pulse 70 Ht 1.6 m (5' 3 ) Wt 93 kg (205 lb) BMI 36.31 kg/m Smoking Status Never BSA 2.03 m EKG done in office today Objective Physical Exam Constitutional: Appearance: Normal appearance. She is normal weight. HENT: Nose: Nose normal. Neck: Vascular: No carotid bruit. Cardiovascular: Rate and Rhythm: Normal rate. Pulses: Normal pulses. Heart sounds: Normal heart sounds. Pulmonary: Effort: Pulmonary effort is normal. Abdominal: General: Bowel sounds are normal. Palpations: Abdomen is soft. Genitourinary: Rectum: Normal. Musculoskeletal: General: Normal range of motion. Cervical back: Normal range of motion. Right lower leg: No edema. Left lower leg: No edema. Skin: General: Skin is warm and dry. Neurological: General: No focal deficit present. Mental Status: She is alert. Psychiatric: Mood and Affect: Mood normal. Behavior: Behavior normal. Thought Content: Thought content normal. Judgment: Judgment normal. Current Medications Current Outpatient Medications: cloNIDine (Catapres) 0.1 mg tablet, Take 1 tablet (0.1 mg) by mouth if needed for high blood pressure (Take for readings above 160, repeat in 1 hour)., Disp: 60 tablet, Rfl: 11 Eliquis 5 mg tablet, Take 1 tablet (5 mg) by mouth 2 times a day., Disp: , Rfl: flecainide (Tambocor) 50 mg tablet, Take 0.5 tablets (25 mg) by mouth 2 times a day., Disp: , Rfl: hydrALAZINE (Apresoline) 100 mg tablet, Take 1 tablet (100 mg) by mouth 2 times a day., Disp: 180 tablet, Rfl: 3 irbesartan (Avapro) 150 mg tablet, Take 1 tablet (150 mg) by mouth every 12 hours., Disp: , Rfl: spironolactone (Aldactone) 50 mg tablet, Take 1 tablet (50 mg) by mouth once daily., Disp: , Rfl: magnesium oxide (Mag-Ox) 400 mg (241.3 mg magnesium) tablet, Take 1 tablet (400 mg) by mouth 2 times a day., Disp: 180 tablet, Rfl: 3 Assessment/Plan 1. Paroxysmal atrial fibrillation (CMS/HCC) Follow Up In Cardiology ECG 12 Lead magnesium oxide (Mag-Ox) 400 mg (241.3 mg magnesium) tablet 2. Essential hypertension, benign 3. Never smoked any substance 4. High risk medication use 5. Class II obesity 6. Premature atrial contractions Scribe Attestation By signing my name below, Rebekah Benz LPN , Scribe attest that this documentation has been prepared under the direction and in the presence of Charmaine Tilley MD. documented in this encounter [facility] Work Phone: Instructions 09-18-2023 Patient Instructions Note Date & Type Note Facility 09-18-2023 Instructions Natasha Aranda CMA - 09/18/2023 10:20 AM EST Please bring all medicines, vitamins, and herbal supplements with you when you come to the office. Prescriptions will not be filled unless you are compliant with your follow up appointments or have a follow up appointment scheduled as per instruction of your physician. Refills should be requested at the time of your visit. documented in this encounter [facility] Work Phone: History of Present illness Narrative 08-18-2023 Charmaine Tilley MD - 08/18/2023 8:30 AM EST Note Date & Type Note Facility 08-18-2023 History of Present illness Narrative Subjective Jessy Dow is a 83 y.o. female Chief Complaint Hypertension HPI Patient is in the office with her daughter for hypertension management. Recently hydralazine dose was increased which helped significantly improve her blood pressure. Was educated on low-salt diet and low calorie diet. No further change in medicine is going to be made she will come back to see me as scheduled. ROS Visit Vitals BP 138/82 (BP Location: Right arm, Patient Position: Sitting) Pulse 60 Ht 1.6 m (5' 3 ) Wt 93 kg (205 lb) BMI 36.31 kg/m Smoking Status Never BSA 2.03 m Objective Physical Exam Current Medications Current Outpatient Medications: cloNIDine (Catapres) 0.1 mg tablet, Take 1 tablet (0.1 mg) by mouth if needed for high blood pressure (Take for readings above 160, repeat in 1 hour)., Disp: 60 tablet, Rfl: 11 Eliquis 5 mg tablet, Take 1 tablet (5 mg) by mouth 2 times a day., Disp: , Rfl: flecainide (Tambocor) 50 mg tablet, Take 0.5 tablets (25 mg) by mouth 2 times a day., Disp: , Rfl: hydrALAZINE (Apresoline) 100 mg tablet, Take 1 tablet (100 mg) by mouth 2 times a day., Disp: 180 tablet, Rfl: 3 irbesartan (Avapro) 150 mg tablet, Take 1 tablet (150 mg) by mouth every 12 hours., Disp: , Rfl: spironolactone (Aldactone) 50 mg tablet, Take 1 tablet (50 mg) by mouth once daily., Disp: , Rfl: Assessment/Plan 1. Essential hypertension, benign Follow Up In Cardiology documented in this encounter [facility] Work Phone: Instructions 08-18-2023 Patient Instructions Note Date & Type Note Facility 08-18-2023 Instructions Rose Marie Yadav LPN - 08/18/2023 8:30 AM EST Sep 2023 visit pending. Same meds documented in this encounter [facility] Work Phone: Evaluation note 07-24-2022 Note Date & Type Note Facility 07-24-2022 Evaluation note Encounter Date Diagnosis Assessment Notes Jun, Diverticular disease (ICD-10 - K57.90) PATIENT IS ADVISED WE WILL START MEDICATION AT THIS TIME. START FODMAP DIET Jun, Abdominal pain (ICD-10 - R10.9) THIS IS ON THE RIGHT SIDE AND RADIATES TO HTE BACK, THE MORE SHE EATS THE WORSE THE PAIN IS, MOVING BOWELS DOES NOT HELP THIS. PATIENT STATES THAT THIS NEVER GOES AWAY COMPLETELY Jun, Alternating constipation and diarrhea (ICD-10 - R19.8) PATIENT DOES USE THE BENEFIBER M-SIX Other Evaluation note Note Date & Type Note Facility Evaluation note No Information [employer] Other Evaluation note Note Date & Type Note Facility Evaluation note No assessment information [facility] Work Phone: Evaluation note Note Date & Type Note Facility Evaluation note Diagnosis Essential hypertension, benign documented in this encounter [facility] Work Phone: Evaluation note Note Date & Type Note Facility Evaluation note Diagnosis Paroxysmal atrial fibrillation (CMS/HCC)- Primary Atrial fibrillation Essential hypertension, benign Never smoked any substance High risk medication use Class II obesity Premature atrial contractions Supraventricular premature beats documented in this encounter [facility] Work Phone: History general Narrative - Reported Note Date & Type Note Facility History general Narrative - Reported Type Medical History HTN Medical History a.fib Medical History diverticulitis Surgical History hysterectomy Surgical History Gallbladder Surgical History Appendix M-SIX Other Summary Purpose Family History No Family History Records FoundUnknown Family Member Name Dates Details Family history of congestive heart failure: Mother(V17.49, Z82.49) Status:Active Family history of myocardial infarction: Father(V17.3, Z82.49) Status:Active Family history of cardiac di sorder: Sister(V17.49, Z82.49) Status:Active Unknown Family Member Name Dates Details Family history of congestive heart failure: Mother(V17.49, Z82.49) Status:Active Family history of myocardial infarction: Father(V17.3, Z82.49) Status:Active Family history of cardiac di sorder: Sister(V17.49, Z82.49) Status:Active Unknown Family Member Name Dates Details Family history of congestive heart failure: Mother(V17.49, Z82.49) Status:Active Family history of myocardial infarction: Father(V17.3, Z82.49) Status:Active Family history of cardiac di sorder: Sister(V17.49, Z82.49) Status:Active Unknown Family Member Name Dates Details Family history of congestive heart failure: Mother(V17.49, Z82.49) Status:Active Family history of myocardial infarction: Father(V17.3, Z82.49) Status:Active Family history of cardiac di sorder: Sister(V17.49, Z82.49) Status:Active Unknown Family Member Name Dates Details Family history of congestive heart failure: Mother(V17.49, Z82.49) Status:Active Family history of myocardial infarction: Father(V17.3, Z82.49) Status:Active Family history of cardiac di sorder: Sister(V17.49, Z82.49) Status:Active Unknown Family Member Name Dates Details Family history of congestive heart failure: Mother(V17.49, Z82.49) Status:Active Family history of myocardial infarction: Father(V17.3, Z82.49) Status:Active Family history of cardiac di sorder: Sister(V17.49, Z82.49) Status:Active Unknown Family Member Name Dates Details Family history of congestive heart failure: Mother(V17.49, Z82.49) Status:Active Family history of myocardial infarction: Father(V17.3, Z82.49) Status:Active Family history of cardiac di sorder: Sister(V17.49, Z82.49) Status:Active Unknown Family Member Name Dates Details Family history of congestive heart failure: Mother(V17.49, Z82.49) Status:Active Family history of myocardial infarction: Father(V17.3, Z82.49) Status:Active Family history of cardiac di sorder: Sister(V17.49, Z82.49) Status:Active Unknown Family Member Name Dates Details Family history of congestive heart failure: Mother(V17.49, Z82.49) Status:Active Family history of myocardial infarction: Father(V17.3, Z82.49) Status:Active Family history of cardiac di sorder: Sister(V17.49, Z82.49) Status:Active Unknown Family Member Name Dates Details Family history of congestive heart failure: Mother(V17.49, Z82.49) Status:Active Family history of myocardial infarction: Father(V17.3, Z82.49) Status:Active Family history of cardiac di sorder: Sister(V17.49, Z82.49) Status:Active Advance Directives No Advanced Directives Records Found Advance Directive Response Recorded Date/ Time Advance Directives No May 10:43am Advance Directive Response Recorded Date/ Time Advance Directives No May 9:43am Chief Complaint * JESSY DOW is being seen for a 6 month follow-up of. * Patient is in the office for follow-up for hypertension and paroxysmal atrial fibrillation. Her blood pressure is under very good control and her A. fib has been suppressed with flecainide. The patient was diagnosed recently with diverticulitis leading to 20 pounds of weight loss. It seems to be getting better. Fortunately with that she did not have any bleeding while she is taking Eliquis. EKG confirmed normal sinus rhythm. She has no side effect of medications. * ASSESSMENT AND PLAN: * 1. Paroxysmal atrial fibrillation, on flecainide and Eliquis. The patient is on a very small dose flecainide due to previous intolerance to higher dose with severe bradycardia * 2. High-risk medication, Eliquis and flecainide, so far both are well- tolerated at the present doses * 3. Obesity, encouraged the patient to walk and cut back calorie intake. Her weight has dropped 20 pounds in the last several months due to diverticulitis * 4. Hypertension, presently controlled. * 5. History of severe diverticulitis which seems to be getting under control. * Charmaine Tilley MD, FACC * JESSY DOW is being seen for a 6 month follow-up of. * Patient is in the office for follow-up for the problems noted below. She has done well since her last visit. She has a visit to the emergency department back in May [facility] the recordfrom the visit were reviewed and discussed with patient. She presented with symptoms of tachycardiabut she was found to be in normal sinus rhythm. Currently the patient is doing well with normal blood pressure reading and normal cardiac examination EKG revealed normal sinus rhythm and normal QTc interval. Her weight remains above target and education provided to bring it down further with diet and exercise. She lost her last summer for Parkinson's disease. She lives alone at this time. * ASSESSMENT AND PLAN: * 1. Paroxysmal atrial fibrillation, on flecainide and Eliquis. The patient is on a very small dose flecainide due to previous intolerance to higher dose with severe bradycardia * 2. High-risk medication, Eliquis and flecainide, so far both are well- tolerated at the present doses * 3. Obesity, encouraged the patient to walk and cut back calorie intake. Her weight has dropped 20 pounds in the last several months due to diverticulitis * 4. Hypertension, presently controlled. * 5. History of severe diverticulitis which seems to be getting under control. * Charmaine Tilley MD, FACC * JESSY DOW is being seen for a 6 month follow-up of. * Patient is in the office for follow-up for the problems noted below. She remains in normal sinus rhythm on flecainide confirmed by EKG today with normal measurements. She is on Eliquis with no bleeding problems. She has gained weight since her last visit since her diverticulitis has improved and she is eating back to her baseline habits. Encouragement provided to lose weight with low-calorie diet. She still have issues with her colon and she is scheduled to be seen in May by Dr. Aguilar. She had a visit to the emergency department recently for fluttering and dyspnea however her work-up was negative and she was in sinus rhythm. She complains of chronic mild lower extremity edema which is due to severe venous insufficiency bilaterally. Her blood pressure is under control. Lab data from the recent visit to the hospital was reviewed and discussed with the patient with no areas of concern noted. * ASSESSMENT AND PLAN: * 1. Paroxysmal atrial fibrillation, on flecainide and Eliquis. The patient is on a very small dose flecainide due to previous intolerance to higher dose with severe bradycardia * 2. High-risk medication, Eliquis and flecainide, so far both are well- tolerated at the present doses * 3. Obesity, encouraged the patient to walk and cut back calorie intake. * 4. Hypertension, presently controlled. * 5. History of severe diverticulitis which seems to be getting under control. * 6. Chronic venous insufficiency bilaterally leading to significant varicose vein and mild lower extremity edema. Leg elevation when possible and compression stockings were recommended. No medical therapy is recommended * Charmaine Tilley MD, [facility] Chief Complaint and Reason for Visit Chief Complaint cp Chief Complaint hypertension Chief Complaint Chest pain Chief Complaint Chest pain palpitations Reason for Referral Specialty Diagnoses / Procedures Referred By Vern quiroga Referred To Contact Diagnoses Paroxysmal atrial fibrillation (CMS/HCC) Procedures ECG 12 Lead Charmaine Tilley MD [address] [facility], [place] [address] [place] [id number] Referral ID Status Reason Start Date Expiration Date V isits Requested Visits Authorized [id number] Pending Review 09/18/2023 09/17/2024 1 1 Specialty Diagnoses / Procedures Referred By Vern quiroga Referred To Contact Cardiology Diagnoses Paroxysmal atrial fibrillation (CMS/HCC) Procedures Follow Up In Cardiology Charmaine Tilley MD [address] [facility], [place] [address] [place] [id number] Charmaine Tilley MD [address] [place] [address], [address] [address] Referral ID Status Reason Start Date Expiration Date V isits Requested Visits Authorized [id number] Authorized 09/18/2023 09/17/2024 1 1 Additional Source Comments INFORMATION SOURCE (unrecogn ized section and content) DATE CREATED AUTHOR 12/02/2018 [facility] DATE CREATED AUTHOR AUTHOR'S ORGANIZ ATION 02/11/2020 [facility] DATE CREATED AUTHOR AUTHOR'S ORGANIZ ATION 10/09/2022 [facility] DATE CREATED AUTHOR AUTHOR'S ORGANIZ ATION 04/17/2023 [facility] DATE CREATED AUTHOR AUTHOR'S ORGANIZ ATION 04/17/2023 [facility] DATE CREATED AUTHOR AUTHOR'S ORGANIZ ATION 09/20/2023 [facility] DATE CREATED AUTHOR AUTHOR'S ORGANIZ ATION 09/24/2023 [facility] DATE CREATED AUTHOR AUTHOR'S ORGANIZ ATION 01/27/2024 [facility] DATE CREATED AUTHOR AUTHOR'S ORGANIZ ATION 02/02/2024 [facility] EPIC REASON FOR VISIT (unrecogniz ed section and content) Reason Comments Hypertension Specialty Diagnoses / Procedures Referred By Contac t Referred To Contact Cardiology Diagnoses Essential hypertension, benign Procedures Follow Up In Cardiology Charmaine Tilley MD [address] [place] [address], [address] [address] Referral ID Status Reason Start Date Expiration Date V isits Requested Visits Authorized [id number] Authorized 07/23/2023 07/22/2024 1 1 Reason Comments Follow-up 6 months Specialty Diagnoses / Procedures Referred By Contac t Referred To Contact Diagnoses Paroxysmal atrial fibrillation (CMS/HCC) Procedures ECG 12 Lead Charmaine Tilley MD [address], [address] [address] Referral ID Status Reason Start Date Expiration Date V isits Requested Visits Authorized [id number] Pending Review 09/18/2023 09/17/2024 1 1 Care Teams (unrecognized sec tion and content) Team Status: Inactive Member Role Status Dates Raghav Pineda DO Primary Care Provider Active Natalie Brian DO Emergency Provider Active Team Status: Active Member Role Status Dates Raghav Pineda DO Primary Care Provider Active Team Status: Inactive Member Role Status Dates Raghav Pineda , Primary Care Provider Active Gonzalo Smith Jr, MD Emergency Provider Active Clinical Research Tech Relationship Specialty Start Date End Date Raghav Pineda DO [address] [place] [id number] PCP - General 02/08/20 Clinical Research Tech Relationship Specialty Start Date End Date Raghav Pineda DO [address] [place] [address] PCP - General 02/08/20 Goals (unrecognized section and content) Goals may be documented in a n alternate section FOR RECORDS PERTAINING TO PATIENTS WHO ARE OR HAVE BEEN ENROLLED IN A CHEMICAL DEPENDENCY/SUBSTANCEABUSE PROGRAM, SOME INFORMATION MAY BE OMITTED. This clinical summary was aggregated from multiple sources. Caution should be exercised in using it in the provision of clinical care. This summary normalizes information from multiple sources, and as a consequence, information in this document may materially change the coding, format and clinical context of patient data. In addition, data may be omitted in some cases. CLINICAL DECISIONS SHOULD BE BASED ON THE PRIMARY CLINICAL RECORDS. [employer] provides no warranty or guarantee of the accuracy or completeness of information in this document.
[2024-02-20 09:52] LABS: Basophils Percent Auto 0.4 % (0.2-2.0); Eosinophils Absolute Auto 0.2 10^3/uL (0.0-0.7); Hematocrit 31.7 % (36.0-48.0); Hemoglobin 9.2 g/dL (12.0-16.0); Immature Granulocytes Abs Auto 0.03 10^3/uL (0.00-0.03); Immature Granulocytes Pct Auto 0.4 % (0.0-0.5); Lymphocytes Absolute Auto 0.9 10^3/uL (1.2-3.8); Lymphocytes Percent Auto 12.1 % (20.5-60.0); Mean Corpuscular Hemoglobin 23.4 pg (26.7-34.0); Mean Corpuscular Volume 80.7 fL (81.0-99.0); Mean Platelet Volume 10.1 fL (9.5-13.5); Monocytes Absolute Auto 0.6 10^3/uL (0.3-0.8); Monocytes Percent Auto 8.1 % (1.7-12.0); Neutrophils Absolute Auto 5.8 10^3/uL (1.4-6.5); Platelet Count 323 10^3/uL (150-450); Red Blood Count 3.93 10^6/uL (4.20-5.40); Red Cell Distribution Width 16.5 % (11.0-15.0); White Blood Count 7.5 10^3/uL (4.0-11.0)
[2024-02-20 10:11] LABS: Alanine Aminotransferase 16 U/L (14-59); Albumin Globulin Ratio 0.7; Albumin Level 2.8 g/dL (3.4-5.0); Alkaline Phosphatase 112 U/L (46-116); Anion Gap 12.5; Aspartate Amino Transferase 14 U/L (15-37); BUN Creatinine Ratio 13.5; Bilirubin Total 0.5 mg/dL (0.2-1.0); Calcium 8.6 mg/dL (8.5-10.1); Carbon Dioxide 26.7 mmol/L (21.0-32.0); Chloride 105 mmol/L (98-107); Chol HDL Ratio 3.1; Cholesterol 179 mg/dL (<=200); Estimated GFR (African America >60 (>=60); Estimated GFR (Non-African Ame 51 (>=60); Glucose 117 mg/dL (74-106); HDL Cholesterol 57 mg/dL (40-60); LDL Cholesterol Calculated 110.8 mg/dL; Potassium 4.2 mmol/L (3.5-5.1); Sodium 140 mmol/L (136-145); Total Protein 6.8 g/dL (6.4-8.2); Triglycerides 56 mg/dL (<=150); VLDL CHOLESTEROL 11.2 mg/dL
[2024-02-20 15:57] LABS: Estimated Average Glucose 128 mg/dL; Glycohemoglobin A1C 6.1 % (4.5-6.2)
== END 2024-02-20 08:45 | disposition home or self-care (01) ==
LOC: LAB 08:46
PROVIDERS: PCP Family Medicine; Visit Provider Family Medicine
DX: R73.01 Impaired fasting glucose (principal); I10 Essential (primary) hypertension
CPT/HCPCS: 36415; 80053; 80061; 83036; 85025

== ENCOUNTER 2024-04-21 18:51 | Emergency (ER) | payer MEDICARE, OTHER, SELFPAY ==
--- OUTSIDE RECORDS SUMMARY | 2024-04-21 19:02 | XMS_ITS | CCD ---
Author Organization [facility] Inform ion [facility] Care Team Providers Care Risk Engineer Name Role Phone CHARMAINE TILLEY Attending Unavailable RAGHAV PINEDA Primary Care Unavailable JES KEITH Attending Unavailable RAGHAV PINEDA Primary Care Unavailable JES KEITH Attending Unavailable RAGHAV PINEDA Primary Care Unavailable Raghav Pineda Unavailable Unavailable Unavailable George Adams Unavailable DO Raghav Pineda Primary Care Provider [phone] DO Natalie Brian Emergency Provider Isrrael Aparicio Unavailable DR RAGHAV PINEDA Primary Care Unavailable JEANINE NOLAN Admitting Unavailable JEANINE NOLAN Attending Unavailable JEANINE NOLAN Consulting Unavailable MISJenny, DR STACY Admitting Unavailable MISC, DR STACY Attending Unavailable STEPHEN, DR AVILEZ Primary Care Unavailable MISJenny, DR STACY Consulting Unavailable LEDA, DR BOSCH Admitting Unavailable LEDA, DR BOSCH Attending Unavailable STEPHEN, DR AVILEZ Primary Care Unavailable LEDA, DR BOSCH Consulting Unavailable Clementina Alexis Consulting Unavailable STEPHEN, DR AVILEZ Primary Care Unavailable JEANINE NOLAN Admitting Unavailable JEANINE NOLAN Attending Unavailable SHERON FLYNN Consulting Unavailable STEPHEN, DR AVILEZ Primary Care Unavailable JEANINE NOLAN Admitting Unavailable JEANINE NOLAN Attending Unavailable JEANINE NOLAN Consulting Unavailable STEPHEN, DR AVILEZ Primary Care Unavailable KERON, DR TRANG Goins Admitting Unavailkirill CABRALES, DR TRANG Goins Attending Unavailabl benedicto CABRALES, DR TRANG Goins Consulting UnavailDO Raghav Garcia Primary Care Provider MD Gonzalo Smith Jr Emergency Provider Dr. Charmaine Tilley Referring Cherri vailable Stephen, Dr. Raghav Wagner Primary Care Unavaila ble Jarek, Dr. Charmaine Mancilla Attending Cherri vailable Jarek, Dr. Charmaine Mancilla Referring Cherri vailable Stephen, Dr. Raghav Wagner Primary Care Unavaila ble Tilley, Dr. Charmaine Mancilla Attending Cherri vailable Stephen, DO Avilez Primary Care Provider Roc, Natalie Emergency Provider Raghav Pineda DO Primary Care Provider [phone] Stephen, DO Avilez Primary Care Provider [phone] Roc, DO Natalie Emergency Provider Roc, Natalie Admitting Unavailable Natalie Brian Attending Unavailable Raghav Pineda [facility] Care Unavailable Roc Natalie Admitting Unavailable Natalie Brian Attending Unavailable Raghav Pineda [facility] Unavailable Gonzalo Smith Jr Admitting Unavailable Gonzalo Smith Jr Attending Unavailable Raghav Pineda [facility] Unavailable PRISCA FORBES Referring Unavailable RAGHAV PINEDA [...] PINEDA Attending Unavailable RAGHAV PINEDA Referring Unavailable RAGHAV PINEDA Primary [facility] Unavailable RAGHAV PINEDA Primary [facility] Unavailable CHARMAINE TILLEY Attending Unavailable CHARMAINE TILLEY Referring Unavailable RAGHAV PINEDA Primary Care Unavailable CHARMAINE TILLEY Attending Unavailable CHARMAINE TILLEY Attending Unavailable RAGHAV PINEDA Primary Care Unavailable CHARMAINE TILLEY Attending Unavailable CHARMAINE TILLEY Referring Unavailable RAGHAV PINEDA Primary [facility] Unavailable Allergies Allergy Classification Reported Allergen(s) Allergy Type Date of Onset Reaction(s) Facility (16 sources) amLODIPine; Translations: [[facility]] Drug Allergy [address] Work Phone: (17 sources) Angiotensin Converting Enzyme (Norah) Inhibitors; Translations: [NORAH Inhibitors] Allergy to drug (finding) Cough [facility] (20 sources) Chlorthalidone; Translations: [chlorthalidone] Drug Allergy Myalgia [facility] (20 sources) cloNIDine; Translations: [clonidine] Drug Allergy Other, Constipation [facility] (20 sources) Codeine; Translations: [codeine] Drug Allergy Nausea Only [facility] (20 sources) hydroCHLOROthiazide; Translations: [hydrochlorothiazide] Drug Allergy Unknown [facility] (14 sources) Loperamide; Translations: [Imodium] Drug Allergy Nausea Only [place] [address] [place] Work Phone: (20 sources) NIFEdipine; Translations: [NIFEdipine] Drug Allergy Palpitations [facility] (17 sources) Penicillins; Translations: [Penicillins] Allergy to drug (finding) Unknown Reaction [facility] (16 sources) Sulfamethoxazole; Translations: [sulfa] Drug Allergy 023 Unknown [place] [address] [place] Work Phone: (11 sources) Sulfonamides (Antibiotic); Translations: [Sulfa Drugs] Allergy to drug (finding) Nausea [place] [address] [place] Work Phone: (2 sources) Loperamide Drug Allergy Unknown [facility] [employer] Other (2 sources) Penicillins (Antibiotic) Propensity to adverse reactions Unknown [facility] [employer] Other (2 sources) Anti inflammatory Propensity to adverse reactions Unknown [facility] [employer] Other (6 sources) amLODIPine; Translations: [amlodipine] Drug Allergy Leg Swelling [facility] (6 sources) Loperamide; Translations: [loperamide] Drug Allergy Difficulty Swallowing [facility] (5 sources) Sulfonamides (Antibiotic); Translations: [Sulfa (Sulfonamide Antibiotics)] Propensity to adverse reactions Vomiting [facility] (1 source) amLODIPine Drug Allergy [facility] (1 source) Angiotensin Converting Enzyme (Norah) Inhibitors Drug allergy (disorder) [facility] (1 source) Chlorthalidone Drug Allergy [facility] (1 source) Codeine Drug Allergy [facility] (1 source) Flupenthixol Drug Allergy [facility] (1 source) hydroCHLOROthiazide Drug Allergy [facility] (1 source) Loperamide Drug Allergy [facility] (1 source) Penicillin Drug Allergy [facility] (1 source) Sulfonamides (Antibiotic) Drug allergy (disorder) [facility] (2 sources) Angiotensin-convertin g enzyme inhibitor agent Drug Intolerance [facility] (2 sources) Penicillins Drug Intolerance [facility] Work Phone: (1 source) Angiotensin Converting Enzyme (Norha) Inhibitors Drug allergy (disorder) [facility] (1 source) Chlorthalidone Drug Allergy [facility] (1 source) cloNIDine Drug Allergy [facility] (1 source) Codeine Drug Allergy [facility] (1 source) hydroCHLOROthiazide Drug Allergy [facility] (1 source) NIFEdipine Drug Allergy [facility] (1 source) Penicillins Drug allergy (disorder) [facility] (1 source) Sulfamethoxazole; Translations: [SULFAMETHOXAZOLE] Drug Allergy [facility] 3 Repository Medications Current Medications Medication Drug Class(es) [...] Drug Class(es) Dates Sig (Normalized) Sig (Original) [id number] 200 actuat albuterol 0.09 mg/actuat metered dose [...] hrs for 7 days PLEASE CHECK ALLERGIES Nov, Not-Taking dicyclomine hydrochloride 10 mg oral capsule [...] 11:00pm November 04, 2018 7:17pm estrogens, conjugated (intermediate) 0.625 mg oral tablet (6 sources) Estrogen [...] 2017 12:00am take 1 tablet by mendoza every twelve hours Flecainide Acetate 50 MG [...] [Dizziness and giddiness] 01-14-2019 Episodic Conduction disorders (16 sources) EKG: right bundle branch block; Translations: [Right bundle branch block] Onset: 07-09-2023 07-09-2023 Chronic Coronary atherosclerosis and other heart disease (4 sources) Angina pectoris; Translations: [Angina pectoris, unspecified] 01-16-2019 Chronic Deficiency and other anemia (2 sources) Anemia, unspecified; Translations: [Anemia, unspecified] Onset: 04-13-2024 Episodic Diverticulosis and diverticulitis (20 sources) Diverticulitis of [...] anticoagulants] Episodic Other aftercare (1 source) Other penitentiary (current) drug therapy; Translations: [OTH LANGUAGE PATH CURRENT DRUG THERAPY] Onset: 09-30-2022 Episodic Other aftercare (3 sources) 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 anticoagulants; Translations: [HALF-WAY CURRNT USE ANTICOAGULANTS] Onset: 12-18-2021 Episodic Other aftercare (1 source) Taking high risk medication; Translations: [Other extermination inspector (current) drug therapy] 09-18-2023 Episodic Other circulatory [...] mass index (BMI) 37.0-37.9, adult] 09-18-2023 Chronic Other nutritional; endocrine; and metabolic disorders (2 sources) Body mass index (BMI) 34.0-34.9, adult; Translations: [Body mass index (BMI) 34.0-34.9, adult] Onset: 04-13-2024 Chronic Residual codes; unclassified (4 sources) Bilateral lower limb edema; Translations: [Localized edema] 04-01-2019 Episodic Residual codes; unclassified (2 sources) Never smoked any substance; Translations: [Other specified health status] Onset: 09-18-2023 09-18-2023 Episodic Retinal detachments; defects; vascular occlusion; and retinopathy (1 source) Retinal ischemia; 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] Onset: 01-26-2024 Chronic Unclassified (3 sources) Other penitentiary (current) drug therapy; Translations: [Other extermination inspector (current) drug therapy] Onset: 2018 Urinary tract [...] HAND INITIAL ENC] Onset: 01-14-2022 Episodic Other gastrointestinal disorders (4 sources) Diarrhea, unspecified; Translations: [DIARRHEA UNSPECIFIED] Onset: 12-16-2021 Episodic Other nutritional; endocrine; and metabolic disorders (12 sources) Obesity; Translations: [Obesity, unspecified] Onset: 07-09-2023 Resolved: 09-18-2023 07-09-2023 Chronic Residual codes; unclassified (2 sources) Other specified health status; Translations: [Other specified health status] Onset: 09-18-2023 Episodic Skin and subcutaneous tissue infections (1 source) Cellulitis of left upper limb; Translations: [CELLULITIS OF LEFT UPPER LIMB] Onset: 01-16-2022 Episodic Unclassified (10 sources) Never smoked tobacco; Translations: [Never a smoker] Unclassified (1 source) Onset: 09-18-2023 09-18-2023 Results Test Name Value Interpretation Reference Range Facility ECG 12 Leadon 09-18-2023 ECG revealed normal sinus rhythm with right bundle branch block [facility] Work Phone: Activated partial thrombopla stin time (aPTT) in platelet poor plasma by coagulation aOrdered By: Natalie Brian on 09-01-2023 aPTT Coag (PPP) [Time] 38.3 s 25.1-36.5 [facility] Comment on above: A hematocrit value g reater than 55% may lead to inaccurate results in coagulation testing. Patients having hematocrit values >55% require a special collection tube for coagulation studies. Please contact the laboratory at [phone] for redraw instructions. B-Type Natriuretic Peptideon 09-01-2023 Natriuretic peptide B (Bld) [Mass/Vol] 126.0 pg/mL High 5-100 [facility] Comment on above: Result Comment: PERF ORMED BY: [facility] [address] [place] [address] PATHOLOGIST SEARCH MARKETING SPECIALIST ROWAN IRWIN M.D. Performed By: #### C K, CBC, PTT, HS TROP, BMP, BNP, PT ####[place] [id number] [place] [id number] [facility] Basic Metabolic Panelon 12-0 Anion gap [Moles/Vol] 11.0 mmol/L Normal 6.0-15.0 [facility] Comment on above: Performed By: #### C K, CBC, PTT, HS TROP, BMP, BNP, PT ####[place] [id number] [facility] Calcium [Mass/Vol] 9.1 mg/dL Normal 8.6-10.3 [facility] Comment on above: Performed By: #### C K, CBC, PTT, HS TROP, BMP, BNP, PT ####[place] [id number] [facility] Chloride [Moles/Vol] 107 mmol/L Normal 98-107 [facility] Comment on above: Performed By: #### C K, CBC, PTT, HS TROP, BMP, BNP, PT ####[address] CO2 [Moles/Vol] 24.0 mmol/L Normal 21.0-31.0 [facility] Comment on above: Performed By: #### C K, CBC, PTT, HS TROP, BMP, BNP, PT ####[place] [id number] [facility] Creatinine [Mass/Vol] 0.93 mg/dL Normal 0.60-1.20 [facility] Comment on above: Performed By: #### C K, CBC, PTT, HS TROP, BMP, BNP, PT ####[place] [id number] [facility] Creatinine Clr Calc Pharmacy 50.24 Normal [facility] Comment on above: Result Comment: PERF ORMED BY: [facility] [address] [place] [address] PATHOLOGIST SEARCH MARKETING SPECIALIST ROWAN IRWIN M.D. Performed By: #### C K, CBC, PTT, HS TROP, BMP, BNP, PT ####[address] GFR/1.73 sq M.predicted MDRD (S/P/Bld) [Vol rate/Area] mL/min/{1.73_m2} Normal [facility] Comment on above: Performed By: #### C K, CBC, PTT, HS TROP, BMP, BNP, PT ####[facility] [place] [id number] [facility] Glucose [Mass/Vol] 146 mg/dL High 70-100 [facility] Comment on above: Result Comment: [facility] Glucose Reference Range is dependent on time and content of last meal. Glucose of more than 200 mg/dL in a nonstressed, ambulatory subject supports the diagnosis of Diabetes Mellitus. ADA recommended reference range Performed By: #### C K, CBC, PTT, HS TROP, BMP, BNP, PT ####[facility] Potassium [Moles/Vol] 4.0 mmol/L Normal 3.5-5.1 [facility] Comment on above: Performed By: #### C K, CBC, PTT, HS TROP, BMP, BNP, PT ####[place] [id number] [place] [id number] [facility] Sodium [Moles/Vol] 138 mmol/L Normal 136-145 [facility] Comment on above: Performed By: #### C K, CBC, PTT, HS TROP, BMP, BNP, PT ####[address] Urea nitrogen [Mass/Vol] 17 mg/dL Normal 7-25 [facility] Comment on above: Performed By: #### C K, CBC, PTT, HS TROP, BMP, BNP, PT ####[place] [id number] [place] [id number] [facility] Basophils Auto (Bld) [#/Vol] Ordered By: PROVIDER TEMP on 09-01-2023 Basophils (Bld) [#/Vol] 0.1 10*3/uL 0.0-0.2 [facility] Basophils/100 WBC Auto (Bld) Ordered By: PROVIDER TEMP on 09-01-2023 Basophils/100 WBC (Bld) 0.8 % . [facility] Calcium [Mass/volume] in Ser um or PlasmaOrdered By: Natalie Brian on 09-01-2023 Calcium [Mass/Vol] 9.1 mg/dL 8.6-10.3 [facility] Carbon dioxide, total [Moles /volume] in Serum or PlasmaOrdered By: Natalie Brian on 09-01-2023 CO2 [Moles/Vol] 24.0 mmol/L 21.0-31.0 [facility] Chloride [Moles/volume] in S marylou or PlasmaOrdered By: Natalie Brian on 09-01-2023 Chloride [Moles/Vol] 107 mmol/L 98-107 [facility] Complete Blood Count Auto Di ffon 09-01-2023 Basophils (Bld) [#/Vol] 0.1 10*3/uL Normal 0.0-0.2 [facility] Comment on above: Result Comment: PERF ORMED BY: [facility] [address] [place] [address] PATHOLOGIST SEARCH MARKETING SPECIALIST ROWAN IRWIN M.D. Performed By: #### C K, CBC, PTT, HS TROP, BMP, BNP, PT ####[address] Basophils/100 WBC (Bld) 0.8 % Normal . [facility] Comment on above: Performed By: #### C K, CBC, PTT, HS TROP, BMP, BNP, PT ####[address] Eosinophils (Bld) [#/Vol] 0.0 10*3/uL Normal 0.0-0.45 [facility] Comment on above: Performed By: #### C K, CBC, PTT, HS TROP, BMP, BNP, PT ####[address] Eosinophils/100 WBC (Bld) 0.4 % Normal . [facility] Comment on above: Performed By: #### C K, CBC, PTT, HS TROP, BMP, BNP, PT ####[address] Erythrocyte distribution width (RBC) [Ratio] 18.0 % High 11.9-15.3 [facility] Comment on above: Performed By: #### C K, CBC, PTT, HS TROP, BMP, BNP, PT ####[address] Hematocrit (Bld) [Volume fraction] 32.5 % Low 34.0-46.4 [facility] Comment on above: Performed By: #### C K, CBC, PTT, HS TROP, BMP, BNP, PT ####[address] Hemoglobin (Bld) [Mass/Vol] 10.3 g/dL Low 11.8-15.4 [facility] Comment on above: Performed By: #### C K, CBC, PTT, HS TROP, BMP, BNP, PT ####[address] Lymphocytes (Bld) [#/Vol] 0.6 10*3/uL Low 1.00-4.8 [facility] Comment on above: Performed By: #### C K, CBC, PTT, HS TROP, BMP, BNP, PT ####[address] Lymphocytes/100 WBC (Bld) 6.4 % Normal . [facility] Comment on above: Performed By: #### C K, CBC, PTT, HS TROP, BMP, BNP, PT ####[address] MCH (RBC) [Entitic mass] 23.7 pg Low 24.7-34.3 [facility] Comment on above: Performed By: #### C K, CBC, PTT, HS TROP, BMP, BNP, PT ####[address] MCV (RBC) [Entitic vol] 74.6 fL Low 80-100 [facility] Comment on above: Performed By: #### C K, CBC, PTT, HS TROP, BMP, BNP, PT ####[address] Mean Corpuscular HGB Conc 31.8 g/dL Low 32.0-35.0 [facility] Comment on above: Performed By: #### C K, CBC, PTT, HS TROP, BMP, BNP, PT ####[address] Monocytes (Bld) [#/Vol] 0.6 10*3/uL Normal 0.0-0.8 [facility] Comment on above: Performed By: #### C K, CBC, PTT, HS TROP, BMP, BNP, PT ####[address] Monocytes/100 WBC (Bld) 17.29 % Normal 0.00-20.00 [facility] Comment on above: Performed By: #### C K, CBC, PTT, HS TROP, BMP, BNP, PT ####[address] Monocytes/100 WBC (Bld) 6.0 % Normal . [facility] Comment on above: Performed By: #### C K, CBC, PTT, HS TROP, BMP, BNP, PT ####[address] Neutrophils (Bld) [#/Vol] 8.1 10*3/uL High 1.8-7.7 [facility] Comment on above: Performed By: #### C K, CBC, PTT, HS TROP, BMP, BNP, PT ####[address] Neutrophils/100 WBC (Bld) 86.4 % Normal . [facility] Comment on above: Performed By: #### C K, CBC, PTT, HS TROP, BMP, BNP, PT ####[address] NRBC% 0.1 /100{WBC} Normal 0-0.5 [facility] Comment on above: Performed By: #### C K, CBC, PTT, HS TROP, BMP, BNP, PT ####[address] Platelet mean volume (Bld) [Entitic vol] 8.1 fL Normal 6.3-10.7 [facility] Comment on above: Performed By: #### C K, CBC, PTT, HS TROP, BMP, BNP, PT ####[address] Platelets (Bld) [#/Vol] 317 10*3/uL Normal 150-450 [facility] Comment on above: Performed By: #### C K, CBC, PTT, HS TROP, BMP, BNP, PT ####[address] RBC (Bld) [#/Vol] 4.36 10*6/uL Normal 3.60-5.00 [facility] Comment on above: Performed By: #### C K, CBC, PTT, HS TROP, BMP, BNP, PT ####[address] WBC (Bld) [#/Vol] 9.4 10*3/uL Normal 3.8-11.6 [facility] Comment on above: Performed By: #### C K, CBC, PTT, HS TROP, BMP, BNP, PT ####[address] Creatine Kinaseon 09-01-2023 CK [Catalytic activity/Vol] 80 U/L Normal 30-223 [facility] Comment on above: Performed By: #### C K, CBC, PTT, HS TROP, BMP, BNP, PT ####[address] Creatine kinase [Enzymatic a ctivity/volume] in Serum or PlasmaOrdered By: Natalie Brian on 09-01-2023 CK [Catalytic activity/Vol] 80 U/L 30-223 [facility] Creatinine [Mass/volume] in Serum or PlasmaOrdered By: Natalie Brian on 09-01-2023 Creatinine [Mass/Vol] 0.93 mg/dL 0.60-1.20 [facility] ECG 12 lead ECGon 09-01-2023 ECG 12 lead ECG [facility] [address] [place] [id number] Electrocardiograph Report Signed Patient: Jessy Dow MR#: [id number] 76 : 1940 Acct:[id number] Age/Sex: 83 / F ADM Date: 09/01/23 Loc: ER Room: Type: [facility] ER Attending Dr: Ordering Provider: Natalie Brian [...] now present Confirmed by NATALIE BRIAN DO ([id number]) on 09/01/2023 11:31:37 AM Referred By: Electronically Signed By:NATALIE BRIAN DO Transcribed By: MUS Signed By Natalie Brian DO 09/01 1131 Normal [facility] Eosinophils Auto (Bld) [#/Vo l]Ordered By: PROVIDER TEMP on 09-01-2023 Eosinophils (Bld) [#/Vol] 0.0 10*3/uL 0.0-0.45 [facility] Eosinophils/100 WBC Auto (Bl d)Ordered By: PROVIDER TEMP on 09-01-2023 Eosinophils/100 WBC (Bld) 0.4 % . [facility] Erythrocyte distribution wid th Auto (RBC) [Ratio]Ordered By: PROVIDER TEMP on 09-01-2023 Erythrocyte distribution width (RBC) [Ratio] 18.0 % 11.9-15.3 [facility] Glucose [Mass/volume] in Ser um or PlasmaOrdered By: Natalie Brian on 09-01-2023 Glucose [Mass/Vol] 146 mg/dL 70-100 [facility] Comment on above: ADA recommended refe rence rangeRandom Glucose Reference Range is dependent on time and content of last meal. Glucose of more than 200 mg/dL in a nonstressed, ambulatory subject supports the diagnosis of Diabetes Mellitus. Hematocrit Auto (Bld) [Volum e fraction]Ordered By: PROVIDER TEMP on 09-01-2023 Hematocrit (Bld) [Volume fraction] 32.5 % 34.0-46.4 [facility] Hemoglobin [Mass/volume] in BloodOrdered By: PROVIDER TEMP on 09-01-2023 Hemoglobin (Bld) [Mass/Vol] 10.3 g/dL 11.8-15.4 [facility] INR in Platelet poor plasma by Coagulation assayOrdered By: Natalie Brian on 09-01-2023 INR Coag (PPP) [Relative time] 1.6 {INR} [facility] Comment on above: INR Therapeutic Rang [...] RBC Auto (Bld) [#/Vol] 9.4 10*3/uL 3.8-11.6 [facility] Lymphocytes Auto (Bld) [#/Vo l]Ordered By: PROVIDER TEMP on 09-01-2023 Lymphocytes (Bld) [#/Vol] 0.6 10*3/uL 1.00-4.8 [facility] Lymphocytes/100 WBC Auto (Bl d)Ordered By: PROVIDER TEMP on 09-01-2023 Lymphocytes/100 WBC (Bld) 6.4 % . [facility] MCH Auto (RBC) [Entitic mass ]Ordered By: PROVIDER TEMP on 09-01-2023 MCH (RBC) [Entitic mass] 23.7 pg 24.7-34.3 [facility] MCHC Auto (RBC) [Mass/Vol]Or dered By: PROVIDER TEMP on 09-01-2023 MCHC (RBC) [Mass/Vol] 31.8 g/dL 32.0-35.0 [facility] MCV Auto (RBC) [Entitic vol] Ordered By: PROVIDER TEMP on 09-01-2023 MCV (RBC) [Entitic vol] 74.6 fL 80-100 [facility] Monocyte distribution width [Entitic volume] in Blood by AutomatedOrdered By: PROVIDER TEMP on 09-01-2023 Monocyte distribution width Auto (Bld) [Entitic vol] 17.29 % 0.00-20.00 [facility] Monocytes Auto (Bld) [#/Vol] Ordered By: PROVIDER TEMP on 09-01-2023 Monocytes (Bld) [#/Vol] 0.6 10*3/uL 0.0-0.8 [facility] Monocytes/100 WBC Auto (Bld) Ordered By: PROVIDER TEMP on 09-01-2023 Monocytes/100 WBC (Bld) 6.0 % . [facility] Natriuretic peptide B [Mass/ Vol]Ordered By: Natalie Biran on 09-01-2023 Natriuretic peptide B (Bld) [Mass/Vol] 126.0 pg/mL 5-100 [facility] Neutrophils Auto (Bld) [#/Vo l]Ordered By: PROVIDER TEMP on 09-01-2023 Neutrophils (Bld) [#/Vol] 8.1 10*3/uL 1.8-7.7 [facility] Neutrophils/100 WBC Auto (Bl d)Ordered By: PROVIDER TEMP on 09-01-2023 Neutrophils/100 WBC (Bld) 86.4 % . [facility] No Panel InformationOrdered By: Natalie Brian on 09-01-2023 Estimated GFR (CKD-EPI) > 60.0 mL/Min [facility] Creatinine Clearance (Chem 50.24 [facility] Nucleated erythrocytes [Pres ence] in Blood by Automated countOrdered By: PROVIDER TEMP on 09-01-2023 Nucleated RBC Auto Ql (Bld) 0.1 /100{WBC} 0-0.5 [facility] Partial Thromboplastin Timeo n 09-01-2023 aPTT Coag (Bld) [Time] 38.3 s High 25.1-36.5 [facility] Comment on above: Result Comment: A he matocrit value greater than 55% may lead to inaccurate results in coagulation testing. Patients having hematocrit values >55% require a special collection tube for coagulation studies. Please contact the laboratory at [phone] for redraw instructions. PERFORMED BY: [facility] [address] [place] [address] PATHOLOGIST SEARCH MARKETING SPECIALIST ROWAN IRWIN M.D. Performed By: #### C K, CBC, PTT, HS TROP, BMP, BNP, PT ####[facility] [id number] [place] [address] [facility] Platelet mean volume Auto (B ld) [Entitic vol]Ordered By: PROVIDER TEMP on 09-01-2023 Platelet mean volume (Bld) [Entitic vol] 8.1 fL 6.3-10.7 [facility] Platelets Auto (Bld) [#/Vol] Ordered By: PROVIDER TEMP on 09-01-2023 Platelets (Bld) [#/Vol] 317 10*3/uL 150-450 [facility] Potassium [Moles/volume] in Serum or PlasmaOrdered By: Natalie Brian on 09-01-2023 Potassium [Moles/Vol] 4.0 mmol/L 3.5-5.1 [facility] Prothrombin Time INRon 09-01 INR Coag (PPP) [Relative time] 1.6 {INR} Normal [facility] Comment on above: Result Comment: INR [...] CBC, PTT, HS TROP, BMP, BNP, PT ####[facility] [id number] [place] [address] [facility] PT Coag (PPP) [Time] 18.4 s High 9.0-12.9 [facility] Comment on above: Result Comment: A he matocrit value greater than 55% may lead to inaccurate results in coagulation testing. Patients having hematocrit values >55% require a special collection tube for coagulation studies. Please contact the laboratory at [phone] for redraw instructions. Performed By: #### C K, CBC, PTT, HS TROP, BMP, BNP, PT ####[facility] [place] [address] [facility] Prothrombin time (PT)Ordered By: Natalie Brian on 09-01-2023 PT Coag (PPP) [Time] 18.4 s 9.0-12.9 [facility] Comment on above: A hematocrit value g reater than 55% may lead to inaccurate results in coagulation testing. Patients having hematocrit values >55% require a special collection tube for coagulation studies. Please contact the laboratory at [phone] for redraw instructions. RBC Auto (Bld) [#/Vol]Ordere d By: PROVIDER TEMP on 09-01-2023 RBC (Bld) [#/Vol] 4.36 10*6/uL 3.60-5.00 [facility] Serum or plasma anion gap de terminationOrdered By: Natalie Brian on 09-01-2023 Anion gap [Moles/Vol] 11.0 mmol/L 6.0-15.0 [facility] Sodium [Moles/volume] in Ser um or PlasmaOrdered By: Natalie Brian on 09-01-2023 Sodium [Moles/Vol] 138 mmol/L 136-145 [facility] Troponin I High Sensitivityo n 09-01-2023 Troponin I High Sensitivity 5.2 pg/mL Normal 0.0-15.0 [facility] Comment on above: Result Comment: PERF ORMED BY: [facility] [address] [place] [address] PATHOLOGIST [employer]IST ROWAN IRWIN M.D. Performed By: #### C K, CBC, PTT, HS TROP, BMP, BNP, PT ####[facility] [place] [address] [facility] Troponin I.cardiac [Mass/vol ume] in Serum or Plasma by Detection limit <= 0.01 ng/Ordered By: Natalie Brian on 09-01-2023 Troponin I.cardiac DL <= 0.01 ng/mL [Mass/Vol] 5.2 pg/mL 0.0-15.0 [facility] Urea nitrogen [Mass/volume] in Serum or PlasmaOrdered By: Natalie Brian on 09-01-2023 Urea nitrogen [Mass/Vol] 17 mg/dL 7-25 [facility] WBC Auto (Bld) [#/Vol]Ordere d By: PROVIDER TEMP on 09-01-2023 WBC (Bld) [#/Vol] 9.4 10*3/uL 3.8-11.6 [facility] XR chest 2V*on 09-01-2023 XR chest 2V* [facility] [address] XRay Report Signed Patient: Jessy Dow MR#: [id number] [birth year] : 1940 Acct:[id number] Age/Sex: 83 / F ADM Date: 09/01/23 Loc: ER Room: Type: [facility] ER Attending Dr: Copies to: Natalie [...] Devin Diallo M.D.09/01/2023 10:19 AM Dictation Location: [place] [address] Transcribed By: [facility] 09/01/23 1019 Dictated By: Devin Diallo II, MD 09/01/23 1002 Signed By: 09/01/23 1019 Normal [facility] Activated partial thrombopla stin time (aPTT) in platelet poor plasma by coagulation aOrdered By: Natalie Brian on 07-27-2023 aPTT Coag (PPP) [Time] 35.2 s 25.1-36.5 [facility] Comment on above: A hematocrit value g reater than 55% may lead to inaccurate results in coagulation testing. Patients having hematocrit values >55% require a special collection tube for coagulation studies. Please contact the laboratory at [phone] for redraw instructions. Alanine aminotransferase [En zymatic activity/volume] in Serum or PlasmaOrdered By: Natalie Brian on 07-27-2023 ALT [Catalytic activity/Vol] 11 U/L 7-52 [facility] Albumin [Mass/volume] in Ser um or Plasma by Bromocresol green (BCG) dye binding methoOrdered By: Natalie Brian on 07-27-2023 Albumin BCG dye [Mass/Vol] 3.7 g/dL 3.5-5.7 [facility] Alkaline phosphatase [Enzyma tic activity/volume] in Serum or PlasmaOrdered By: Natalie Brian on 07-27-2023 ALP [Catalytic activity/Vol] 94 U/L 34-104 [facility] Aspartate aminotransferase [ Enzymatic activity/volume] in Serum or PlasmaOrdered By: Natalie Brian on 07-27-2023 AST [Catalytic activity/Vol] 15 U/L 13-39 [facility] B-Type Natriuretic Peptideon 07-27-2023 Natriuretic peptide B (Bld) [Mass/Vol] 92.0 pg/mL Normal 5-100 [facility] Comment on above: Result Comment: PERF ORMED BY: [facility] [address] [place] [address] PATHOLOGIST [employer]IST ROWAN IRWIN M.D. Performed By: #### C MP, PT, CK, BNP, CBC, HS TROP, PTT, LIPASE ####[facility] [place] [address] [facility] Basophils Auto (Bld) [#/Vol] Ordered By: Natalie Brian on 07-27-2023 Basophils (Bld) [#/Vol] 0.1 10*3/uL 0.0-0.2 [facility] Basophils/100 WBC Auto (Bld) Ordered By: Natalie Brian on 07-27-2023 Basophils/100 WBC (Bld) 0.8 % . [facility] Bilirubin Test strip Ql (U)O rdered By: Natalie Brian on 07-27-2023 Bilirubin Ql (U) Negative Negative [facility] Bilirubin.total [Mass/volume ] in Serum or PlasmaOrdered By: Natalie Brian on 07-27-2023 Bilirubin [Mass/Vol] 0.4 mg/dL 0.3-1.0 [facility] CT abdomen pelvis wo conon 1 CT abdomen pelvis wo con [facility] [place] [address] CT Scan Report Signed Patient: Jessy Dow MR#: [id number] [birth year] : 1940 Acct:[id number] Age/Sex: 83 / F ADM Date: 07/27/23 Loc: ER Room: Type: [facility] ER Attending Dr: Copies to: Natalie [...] Devin Diallo M.D.07/27/2023 1:12 PM Dictation Location: [place] [address] Transcribed By: STEPHON 07/27/23 1312 Dictated By: Devin Diallo II, MD 07/27/23 1302 Signed By: 07/27/23 1312 Normal [facility] Calcium [Mass/volume] in Ser um or PlasmaOrdered By: Natalie Brian on 07-27-2023 Calcium [Mass/Vol] 8.9 mg/dL 8.6-10.3 [facility] Carbon dioxide, total [Moles /volume] in Serum or PlasmaOrdered By: Natalie Brian on 07-27-2023 CO2 [Moles/Vol] 23.7 mmol/L 21.0-31.0 [facility] Chloride [Moles/volume] in S marylou or PlasmaOrdered By: Natalie Brian on 07-27-2023 Chloride [Moles/Vol] 106 mmol/L 98-107 [facility] Color Auto (U)Ordered By: Honorio Brian on 07-27-2023 Color (U) Yellow Yellow [facility] Complete Blood Count Auto Di ffon 07-27-2023 Basophils (Bld) [#/Vol] 0.1 10*3/uL Normal 0.0-0.2 [facility] Comment on above: Result Comment: PERF ORMED BY: [facility] [address] [place] [address] PATHOLOGIST [employer] SPECIALIST ROWAN IRWIN M.D. Performed By: #### C MP, PT, CK, BNP, CBC, HS TROP, PTT, LIPASE ####[address] Basophils/100 WBC (Bld) 0.8 % Normal . [facility] Comment on above: Performed By: #### C MP, PT, CK, BNP, CBC, HS TROP, PTT, LIPASE ####[address] Eosinophils (Bld) [#/Vol] 0.0 10*3/uL Normal 0.0-0.45 [facility] Comment on above: Performed By: #### C MP, PT, CK, BNP, CBC, HS TROP, PTT, LIPASE ####[address] Eosinophils/100 WBC (Bld) 0.5 % Normal . [facility] Comment on above: Performed By: #### C MP, PT, CK, BNP, CBC, HS TROP, PTT, LIPASE ####[address] Erythrocyte distribution width (RBC) [Ratio] 18.4 % High 11.9-15.3 [facility] Comment on above: Performed By: #### C MP, PT, CK, BNP, CBC, HS TROP, PTT, LIPASE ####[address] Hematocrit (Bld) [Volume fraction] 33.1 % Low 34.0-46.4 [facility] Comment on above: Performed By: #### C MP, PT, CK, BNP, CBC, HS TROP, PTT, LIPASE ####[address] Hemoglobin (Bld) [Mass/Vol] 10.6 g/dL Low 11.8-15.4 [facility] Comment on above: Performed By: #### C MP, PT, CK, BNP, CBC, HS TROP, PTT, LIPASE ####[address] Lymphocytes (Bld) [#/Vol] 0.6 10*3/uL Low 1.00-4.8 [facility] Comment on above: Performed By: #### C MP, PT, CK, BNP, CBC, HS TROP, PTT, LIPASE ####[address] Lymphocytes/100 WBC (Bld) 7.8 % Normal . [facility] Comment on above: Performed By: #### C MP, PT, CK, BNP, CBC, HS TROP, PTT, LIPASE ####[address] MCH (RBC) [Entitic mass] 23.5 pg Low 24.7-34.3 [facility] Comment on above: Performed By: #### C MP, PT, CK, BNP, CBC, HS TROP, PTT, LIPASE ####[address] MCV (RBC) [Entitic vol] 73.6 fL Low 80-100 [facility] Comment on above: Performed By: #### C MP, PT, CK, BNP, CBC, HS TROP, PTT, LIPASE ####[address] Mean Corpuscular HGB Conc 31.9 g/dL Low 32.0-35.0 [facility] Comment on above: Performed By: #### C MP, PT, CK, BNP, CBC, HS TROP, PTT, LIPASE ####[address] Monocytes (Bld) [#/Vol] 0.6 10*3/uL Normal 0.0-0.8 [facility] Comment on above: Performed By: #### C MP, PT, CK, BNP, CBC, HS TROP, PTT, LIPASE ####[address] Monocytes/100 WBC (Bld) 18.84 % Normal 0.00-20.00 [facility] Comment on above: Performed By: #### C MP, PT, CK, BNP, CBC, HS TROP, PTT, LIPASE ####[address] Monocytes/100 WBC (Bld) 7.4 % Normal . [facility] Comment on above: Performed By: #### C MP, PT, CK, BNP, CBC, HS TROP, PTT, LIPASE ####[address] Neutrophils (Bld) [#/Vol] 6.5 10*3/uL Normal 1.8-7.7 [facility] Comment on above: Performed By: #### C MP, PT, CK, BNP, CBC, HS TROP, PTT, LIPASE ####[address] Neutrophils/100 WBC (Bld) 83.5 % Normal . [facility] Comment on above: Performed By: #### C MP, PT, CK, BNP, CBC, HS TROP, PTT, LIPASE ####[address] NRBC% 0.1 /100{WBC} Normal 0-0.5 [facility] Comment on above: Performed By: #### C MP, PT, CK, BNP, CBC, HS TROP, PTT, LIPASE ####[address] Platelet mean volume (Bld) [Entitic vol] 8.1 fL Normal 6.3-10.7 [facility] Comment on above: Performed By: #### C MP, PT, CK, BNP, CBC, HS TROP, PTT, LIPASE ####[address] Platelets (Bld) [#/Vol] 328 10*3/uL Normal 150-450 [facility] Comment on above: Performed By: #### C MP, PT, CK, BNP, CBC, HS TROP, PTT, LIPASE ####[address] RBC (Bld) [#/Vol] 4.49 10*6/uL Normal 3.60-5.00 [facility] Comment on above: Performed By: #### C MP, PT, CK, BNP, CBC, HS TROP, PTT, LIPASE ####[place] [id number] [address] WBC (Bld) [#/Vol] 7.8 10*3/uL Normal 3.8-11.6 [facility] Comment on above: Performed By: #### C MP, PT, CK, BNP, CBC, HS TROP, PTT, LIPASE ####[address] Comprehensive Metabolic Pane barbara 07-27-2023 Albumin [Mass/Vol] 3.7 g/dL Normal 3.5-5.7 [facility] Comment on above: Performed By: #### C MP, PT, CK, BNP, CBC, HS TROP, PTT, LIPASE ####[address] Albumin/Globulin [Mass ratio] 1.1 {ratio} Normal [facility] Comment on above: Performed By: #### C MP, PT, CK, BNP, CBC, HS TROP, PTT, LIPASE ####[address] ALP [Catalytic activity/Vol] 94 U/L Normal 34-104 [facility] Comment on above: Performed By: #### C MP, PT, CK, BNP, CBC, HS TROP, PTT, LIPASE ####[address] ALT [Catalytic activity/Vol] 11 U/L Normal 7-52 [facility] Comment on above: Performed By: #### C MP, PT, CK, BNP, CBC, HS TROP, PTT, LIPASE ####[place] [id number] [facility] Anion gap [Moles/Vol] 12.2 mmol/L Normal 6.0-15.0 [facility] Comment on above: Performed By: #### C MP, PT, CK, BNP, CBC, HS TROP, PTT, LIPASE ####[place] [id number] [facility] AST [Catalytic activity/Vol] 15 U/L Normal 13-39 [facility] Comment on above: Performed By: #### C MP, PT, CK, BNP, CBC, HS TROP, PTT, LIPASE ####[address] Bilirubin [Mass/Vol] 0.4 mg/dL Normal 0.3-1.0 [facility] Comment on above: Performed By: #### C MP, PT, CK, BNP, CBC, HS TROP, PTT, LIPASE ####[address] Calcium [Mass/Vol] 8.9 mg/dL Normal 8.6-10.3 [facility] Comment on above: Performed By: #### C MP, PT, CK, BNP, CBC, HS TROP, PTT, LIPASE ####[address] Chloride [Moles/Vol] 106 mmol/L Normal 98-107 [facility] Comment on above: Performed By: #### C MP, PT, CK, BNP, CBC, HS TROP, PTT, LIPASE ####[address] CO2 [Moles/Vol] 23.7 mmol/L Normal 21.0-31.0 [facility] Comment on above: Performed By: #### C MP, PT, CK, BNP, CBC, HS TROP, PTT, LIPASE ####[address] Creatinine [Mass/Vol] 0.91 mg/dL Normal 0.60-1.20 [facility] Comment on above: Performed By: #### C MP, PT, CK, BNP, CBC, HS TROP, PTT, LIPASE ####[address] Creatinine Clr Calc Pharmacy 52.10 [facility] Comment on above: Performed By: #### C MP, PT, CK, BNP, CBC, HS TROP, PTT, LIPASE ####[address] GFR/1.73 sq M.predicted MDRD (S/P/Bld) [Vol rate/Area] mL/min/{1.73_m2} [facility] Comment on above: Performed By: #### C MP, PT, CK, BNP, CBC, HS TROP, PTT, LIPASE ####[place] [id number] [place] [id number] [facility] Globulin (S) [Mass/Vol] 3.4 g/dL [facility] Comment on above: Performed By: #### C MP, PT, CK, BNP, CBC, HS TROP, PTT, LIPASE ####[place] [id number] [place] [id number] [facility] Glucose [Mass/Vol] 119 mg/dL High 70-100 [facility] Comment on above: Result Comment: [facility] Glucose Reference Range is dependent on time and content of last meal. Glucose of more than 200 mg/dL in a nonstressed, ambulatory subject supports the diagnosis of Diabetes Mellitus. ADA recommended reference range Performed By: #### C MP, PT, CK, BNP, CBC, HS TROP, PTT, LIPASE ####[address] Potassium [Moles/Vol] 3.9 mmol/L Normal 3.5-5.1 [facility] Comment on above: Performed By: #### C MP, PT, CK, BNP, CBC, HS TROP, PTT, LIPASE ####[place] [id number] [facility] Protein [Mass/Vol] 7.1 g/dL Normal 6.4-8.9 [facility] Comment on above: Performed By: #### C MP, PT, CK, BNP, CBC, HS TROP, PTT, LIPASE ####[place] [id number] [facility] Sodium [Moles/Vol] 138 mmol/L Normal 136-145 [facility] Comment on above: Performed By: #### C MP, PT, CK, BNP, CBC, HS TROP, PTT, LIPASE ####[place] [id number] [facility] Urea nitrogen [Mass/Vol] 14 mg/dL Normal 04-21 [facility] Comment on above: Performed By: #### C MP, PT, CK, BNP, CBC, HS TROP, PTT, LIPASE ####[facility] [address] [place] [address] [facility] Creatine Kinaseon 07-27-2023 CK [Catalytic activity/Vol] 45 U/L Normal [facility] Comment on above: Performed By: #### C MP, PT, CK, BNP, CBC, HS TROP, PTT, LIPASE ####[facility] [address] [place] [address] [facility] Creatine kinase [Enzymatic a ctivity/volume] in Serum or PlasmaOrdered By: Natalie Brian on 07-27-2023 CK [Catalytic activity/Vol] 45 U/L [facility] Creatinine [Mass/volume] in Serum or PlasmaOrdered By: Natalie Brian on 07-27-2023 Creatinine [Mass/Vol] 0.91 mg/dL 0.60-1.20 [facility] ECG 12 lead ECGon 07-27-2023 ECG 12 lead ECG [facility] [address] Electrocardiograph Report Signed Patient: Jessy Dow MR#: [id number] 77 : 1940 Acct:[id number] Age/Sex: 83 / F ADM Date: 07/27/23 Loc: ER Room: Type: [facility] ER Attending Dr: Ordering Provider: Natalie Brian [...] Anterior leads Confirmed by NATALIE BRIAN DO ([id number]) on 07/27/2023 5:25:35 PM Referred By: Electronically Signed By:NATALIE BRIAN DO Transcribed By: MUS Signed By Natalie Brian DO 07/27 1726 Normal [facility] Eosinophils Auto (Bld) [#/Vo l]Ordered By: Natalie Brian on 07-27-2023 Eosinophils (Bld) [#/Vol] 0.0 10*3/uL 0.0-0.45 [facility] Eosinophils/100 WBC Auto (Bl d)Ordered By: Natalie Brian on 07-27-2023 Eosinophils/100 WBC (Bld) 0.5 % . [facility] Erythrocyte distribution wid th Auto (RBC) [Ratio]Ordered By: Natalie Brian on 07-27-2023 Erythrocyte distribution width (RBC) [Ratio] 18.4 % 11.9-15.3 [facility] Globulin Calc (S) [Mass/Vol] Ordered By: Natalie Brian on 07-27-2023 Globulin (S) [Mass/Vol] 3.4 g/dL [facility] Glucose [Mass/volume] in Ser um or PlasmaOrdered By: Natalie Brian on 07-27-2023 Glucose [Mass/Vol] 119 mg/dL 70-100 [facility] Comment on above: ADA recommended refe rence rangeRandom Glucose Reference Range is dependent on time and content of last meal. Glucose of more than 200 mg/dL in a nonstressed, ambulatory subject supports the diagnosis of Diabetes Mellitus. Hematocrit Auto (Bld) [Volum e fraction]Ordered By: Natalie Brian on 07-27-2023 Hematocrit (Bld) [Volume fraction] 33.1 % 34.0-46.4 [facility] Hemoglobin [Mass/volume] in BloodOrdered By: Natalie Brian on 07-27-2023 Hemoglobin (Bld) [Mass/Vol] 10.6 g/dL 11.8-15.4 [facility] INR in Platelet poor plasma by Coagulation assayOrdered By: Natalie Brian on 07-27-2023 INR Coag (PPP) [Relative time] 1.3 {INR} [facility] Comment on above: INR Therapeutic Rang [...] 07-27-2023 Ketones (U) [Mass/Vol] Negative Negative Fi [facility] Leukocytes [#/volume] correc qi for nucleated erythrocytes in Blood by Automated counOrdered By: Natalie Brian on 07-27-2023 WBC corrected for nucl RBC Auto (Bld) [#/Vol] 7.8 10*3/uL 3.8-11.6 [facility] Lipaseon 07-27-2023 Lipase [Catalytic activity/Vol] 15.0 U/L Normal 11.0-82.0 [facility] Comment on above: Result Comment: PERF ORMED BY: [facility] [address] [place] [id number] PATHOLOGIST [employer] SPECIALIST ROWAN IRWIN M.D. Performed By: #### C MP, PT, CK, BNP, CBC, HS TROP, PTT, LIPASE ####[facility] [id number] [place] [id number] [facility] Lipase [Enzymatic activity/v olume] in Serum or PlasmaOrdered By: Natalie Brian on 07-27-2023 Lipase [Catalytic activity/Vol] 15.0 U/L 11.0-82.0 [facility] Lymphocytes Auto (Bld) [#/Vo l]Ordered By: Natalie Brian on 07-27-2023 Lymphocytes (Bld) [#/Vol] 0.6 10*3/uL 1.00-4.8 [facility] Lymphocytes/100 WBC Auto (Bl d)Ordered By: Natalie Brian on 07-27-2023 Lymphocytes/100 WBC (Bld) 7.8 % . [facility] MCH Auto (RBC) [Entitic mass ]Ordered By: Natalie Brian on 07-27-2023 MCH (RBC) [Entitic mass] 23.5 pg 24.7-34.3 [facility] MCHC Auto (RBC) [Mass/Vol]Or dered By: Natalie Brian on 07-27-2023 MCHC (RBC) [Mass/Vol] 31.9 g/dL 32.0-35.0 [facility] MCV Auto (RBC) [Entitic vol] Ordered By: Natalie Brian on 07-27-2023 MCV (RBC) [Entitic vol] 73.6 fL 80-100 [facility] Monocyte distribution width [Entitic volume] in Blood by AutomatedOrdered By: Natalie Brian on 07-27-2023 Monocyte distribution width Auto (Bld) [Entitic vol] 18.84 % 0.00-20.00 [facility] Monocytes Auto (Bld) [#/Vol] Ordered By: Natalie Brian on 07-27-2023 Monocytes (Bld) [#/Vol] 0.6 10*3/uL 0.0-0.8 [facility] Monocytes/100 WBC Auto (Bld) Ordered By: Natalie Brian on 07-27-2023 Monocytes/100 WBC (Bld) 7.4 % . [facility] Natriuretic peptide B [Mass/ Vol]Ordered By: Natalie Brian on 07-27-2023 Natriuretic peptide B (Bld) [Mass/Vol] 92.0 pg/mL 5-100 [facility] Neutrophils Auto (Bld) [#/Vo l]Ordered By: Natalie Brian on 07-27-2023 Neutrophils (Bld) [#/Vol] 6.5 10*3/uL 1.8-7.7 [facility] Neutrophils/100 WBC Auto (Bl d)Ordered By: Natalie Brian on 07-27-2023 Neutrophils/100 WBC (Bld) 83.5 % . [facility] Nitrite Test strip Ql (U)Ord ered By: Natalie Brian on 07-27-2023 Nitrite Ql (U) Negative Negative [facility] No Panel InformationOrdered By: Natalie Brian on 07-27-2023 Estimated GFR (CKD-EPI) > 60.0 mL/Min [facility] Creatinine Clearance (Chem 52.10 [facility] Nucleated erythrocytes [Pres ence] in Blood by Automated countOrdered By: Natalie Brian on 07-27-2023 Nucleated RBC Auto Ql (Bld) 0.1 /100{WBC} 0-0.5 [facility] Partial Thromboplastin Timeo n 07-27-2023 aPTT Coag (Bld) [Time] 35.2 s Normal 25.1-36.5 [facility] Comment on above: Result Comment: A he matocrit value greater than 55% may lead to inaccurate results in coagulation testing. Patients having hematocrit values >55% require a special collection tube for coagulation studies. Please contact the laboratory at [phone] for redraw instructions. PERFORMED BY: [facility] [address] [place] [address] PATHOLOGIST [employer] SPECIALIST ROWAN IRWIN M.D. Performed By: #### C MP, PT, CK, BNP, CBC, HS TROP, PTT, LIPASE ####[facility] [id number] [place] [address] [facility] Platelet mean volume Auto (B ld) [Entitic vol]Ordered By: Natalie Brian on 07-27-2023 Platelet mean volume (Bld) [Entitic vol] 8.1 fL 6.3-10.7 [facility] Platelets Auto (Bld) [#/Vol] Ordered By: Natalie Brian on 07-27-2023 Platelets (Bld) [#/Vol] 328 10*3/uL 150-450 [facility] Potassium [Moles/volume] in Serum or PlasmaOrdered By: Natalie Brian on 07-27-2023 Potassium [Moles/Vol] 3.9 mmol/L 3.5-5.1 [facility] Protein Auto test strip (U) [Mass/Vol]Ordered By: Natalie Brian on 07-27-2023 Protein (U) [Mass/Vol] Negative Negative [facility] Protein [Mass/volume] in Ser um or PlasmaOrdered By: Natalie Brian on 07-27-2023 Protein [Mass/Vol] 7.1 g/dL 6.4-8.9 [facility] Prothrombin Time INRon 07-27 INR Coag (PPP) [Relative time] 1.3 {INR} Normal [facility] Comment on above: Result Comment: INR [...] PTT, LIPASE ####[facility] [place] [id number] [facility] PT Coag (PPP) [Time] 15.6 s High 9.0-12.9 [facility] Comment on above: Result Comment: A he matocrit value greater than 55% may lead to inaccurate results in coagulation testing. Patients having hematocrit values >55% require a special collection tube for coagulation studies. Please contact the laboratory at [phone] for redraw instructions. Performed By: #### C MP, PT, CK, BNP, CBC, HS TROP, PTT, LIPASE ####[place] [id number] [place] [id number] [facility] Prothrombin time (PT)Ordered By: Natalie Brian on 07-27-2023 PT Coag (PPP) [Time] 15.6 s 9.0-12.9 [facility] Comment on above: A hematocrit value g reater than 55% may lead to inaccurate results in coagulation testing. Patients having hematocrit values >55% require a special collection tube for coagulation studies. Please contact the laboratory at [phone] for redraw instructions. RBC Auto (Bld) [#/Vol]Ordere d By: Natalie Brian on 07-27-2023 RBC (Bld) [#/Vol] 4.49 10*6/uL 3.60-5.00 [facility] Serum or plasma albumin/glob ulin mass ratioOrdered By: Natalie Brian on 07-27-2023 Albumin/Globulin [Mass ratio] 1.1 {ratio} [facility] Serum or plasma anion gap de terminationOrdered By: Natalie Brian on 07-27-2023 Anion gap [Moles/Vol] 12.2 mmol/L 6.0-15.0 [facility] Sodium [Moles/volume] in Ser um or PlasmaOrdered By: Natalie Brian on 07-27-2023 Sodium [Moles/Vol] 138 mmol/L 136-145 [facility] Specific gravity Auto test s trip (U) [Rel density]Ordered By: Natalie Brian on 07-27-2023 Specific gravity (U) [Rel density] 1.005 1.001-1.03 0 [facility] Troponin I High Sensitivityo n 07-27-2023 Troponin I High Sensitivity 4.3 pg/mL Normal 0.0-15.0 [facility] Comment on above: Order Comment: Comme nt repeat Result Comment: PERF ORMED BY: [place] [address] PATHOLOGIST [employer]IST ROWAN IRWIN M.D. Performed By: #### H S TROP #### [address] Troponin I High Sensitivity 3.1 pg/mL Normal 0.0-15.0 [facility] Comment on above: Result Comment: PERF ORMED BY: [place] [address] PATHOLOGIST [employer] SPECIALIST ROWAN IRWIN M.D. Performed By: #### C MP, PT, CK, BNP, CBC, HS TROP, PTT, LIPASE ####[facility] [id number] [place], [place] [id number] [facility] Troponin I.cardiac [Mass/vol ume] in Serum or Plasma by Detection limit <= 0.01 ng/Ordered By: Natalie Brian on 07-27-2023 Troponin I.cardiac DL <= 0.01 ng/mL [Mass/Vol] 4.3 pg/mL 0.0-15.0 [facility] Urea nitrogen [Mass/volume] in Serum or PlasmaOrdered By: Natalie Brian on 07-27-2023 Urea nitrogen [Mass/Vol] 14 mg/dL 04-21 [facility] Urinalysison 07-27-2023 Appearance (U) Clear Normal Clear [facility] Comment on above: Order Comment: Name Collection Type:: Clean-Voided Midstream Performed By: #### U A #### [facility] [address] [place] [address] [place] Bilirubin,Urine Negative Normal Negative [facility] Comment on above: Order Comment: Name Collection Type:: Clean-Voided Midstream Performed By: #### U A #### [facility] [address] [place] [address] [place] Color (U) Yellow Normal Yellow [facility] Comment on above: Order Comment: Name Collection Type:: Clean-Voided Midstream Performed By: #### U A #### [address] Glucose Ql (U) Normal Normal Normal [facility] Comment on above: Order Comment: Name Collection Type:: Clean-Voided Midstream Performed By: #### U A #### [address] Ketones Ql (U) Negative Normal Negative [facility] Comment on above: Order Comment: Name Collection Type:: Clean-Voided Midstream Performed By: #### U A #### [address] Leukocyte esterase Test strip Ql (U) Negative Normal Negative [facility] Comment on above: Order Comment: Name Collection Type:: Clean-Voided Midstream Performed By: #### U A #### [place] [address] [place] Nitrite,Urine Negative Normal Negative [facility] Comment on above: Order Comment: Name Collection Type:: Clean-Voided Midstream Performed By: #### U A #### [facility] [address] [place] [address] [place] Occult Blood,Urine Negative Normal Negative [facility] Comment on above: Order Comment: Name Collection Type:: Clean-Voided Midstream Result Comment: PERF ORMED BY: [place] [address] PATHOLOGIST SE[employer]ET[employer] SPECIALIST ROWAN IRWIN M.D. Performed By: #### U A #### [facility] [address] [place] [address] [place] pH (U) 6.5 [pH] Normal 5.0-9.0 [facility] Comment on above: Order Comment: Name Collection Type:: Clean-Voided Midstream Performed By: #### U A #### [facility] [address] [place] [address] Protein,Urine Negative Normal Negative [facility] Comment on above: Order Comment: Name Collection Type:: Clean-Voided Midstream Performed By: #### U A #### [facility] [address] [place] [address] Specificy Rueter,Urine 1.005 Normal 1.001-1.03 0 [facility] Comment on above: Order Comment: Name Collection Type:: Clean-Voided Midstream Performed By: #### U A #### [address] Urobilinogen,Urine Normal Normal Normal [facility] Comment on above: Order Comment: Name Collection Type:: Clean-Voided Midstream Performed By: #### U A #### [address] Urine clarity by refractomet ry automatedOrdered By: Natalie Brian on 07-27-2023 Clarity Refractometry automated (U) Clear Clear [facility] Urine glucose measurement by automated test strip (mass/volume)Ordered By: Natalie Brian on 07-27-2023 Glucose Auto test strip (U) [Mass/Vol] Normal mg/dL Normal [facility] Urine hemoglobin detection b y automated test stripOrdered By: Natalie Brian on 07-27-2023 Hemoglobin Auto test strip Ql (U) Negative Negative [facility] Urine leukocyte esterase det ection by automated test stripOrdered By: Natalie Brian on 07-27-2023 Leukocyte esterase Auto test strip Ql (U) Negative Negative [facility] Urobilinogen Auto test strip (U) [Mass/Vol]Ordered By: Natalie Brian on 07-27-2023 Urobilinogen (U) [Mass/Vol] Normal mg/dL Normal [facility] WBC Auto (Bld) [#/Vol]Ordere d By: Natalie Brian on 07-27-2023 WBC (Bld) [#/Vol] 7.8 10*3/uL 3.8-11.6 [facility] XR chest 2V*on 07-27-2023 XR chest 2V* [facility] [address] XRay Report Signed Patient: Jessy Dow MR#: [id number] 77 : 1940 Acct:[id number] Age/Sex: 83 / F ADM Date: 07/27/23 Loc: ER Room: Type: [facility] ER Attending Dr: Copies to: Natalie [...] Devin Diallo M.D.07/27/2023 1:17 PM Dictation Location: [place] [address] Transcribed By: [facility] 07/27/231316 Dictated By: Devin Diallo II, MD 07/27/231314 Signed By: 07/27/231316 Normal [facility] pH Auto test strip (U)Ordere d By: Natalie Brian on 07-27-2023 pH (U) 6.5 [pH] 5.0-9.0 [facility] Office Visit (Cardiology)on 04-16-2023 Follow-up visit [...] Weight Tips; Status:Complete - Retrospective Authorization; Done: [id number] Some eating tips that can help you lose weight.; Status:Complete - Retrospective Authorization; Done: [id number] Paroxysmal atrial fibrillation IO EKG Electrocardiogram- 12 Lead; Status:Complete; Done: [id number] SocHx: Never a smoker Tobacco Use Screening; Status:Complete; Done: [id number] Patient Instructions Please bring all medicines, vitamins, [...] medical therapy is recommended Charmaine Tilley MD, [facility] Surgical History Problems History of Appendectomy History [...] Systems Cardiovasc (more content not included)... Normal [facility] Tobacco Screening.on 023 Adult depression screening assessment No [facility] nirali 250 DO Work Phone: Fall risk assessment a) No falls within the last year [facility]i 250 DO Work Phone: Tobacco use status [facility] b) No [facility] n[facility]i 250 DO Work Phone: XR chest 2V*on 03-20-2023 XR chest 2V* [facility] [place] [address] XRay Report Signed Patient: Jessy Dow MR#: [id number] [birth year] : 1940 Acct:[id number] Age/Sex: 82 / F ADM Date: 03/19/23 Loc: ER Room: Type: [facility] ER Attending Dr: Copies to: Gonzalo Smith [...] Pringle Jr., D.O.03/20/2023 8:21 AM Dictation Location: [place] [address] Transcribed By: [facility] 03/20/23820 Dictated By: Bernard Pringle Jr, DO 03/20/23 0820 Signed By: 03/20/23820 Normal [facility] Activated partial thrombopla stin time (aPTT) in platelet poor plasma by coagulation aOrdered By: Gonzalo Smith on 03-19-2023 aPTT Coag (PPP) [Time] 33.6 s 25.1-36.5 [facility] Alanine aminotransferase [En zymatic activity/volume] in Serum or PlasmaOrdered By: Gonzalo Smith on 03-19-2023 ALT [Catalytic activity/Vol] 9 U/L 7-52 [facility] Albumin [Mass/volume] in Ser um or Plasma by Bromocresol green (BCG) dye binding methoOrdered By: Gonzalo Smith on 03-19-2023 Albumin BCG dye [Mass/Vol] 3.9 g/dL 3.5-5.7 [facility] Alkaline phosphatase [Enzyma tic activity/volume] in Serum or PlasmaOrdered By: Gonzalo Smith on 03-19-2023 ALP [Catalytic activity/Vol] 100 U/L 34-104 [facility] Aspartate aminotransferase [ Enzymatic activity/volume] in Serum or PlasmaOrdered By: Gonzalo Smith on 03-19-2023 AST [Catalytic activity/Vol] 13 U/L 13-39 [facility] Basophils Auto (Bld) [#/Vol] Ordered By: Gonzalo Smith on 03-19-2023 Basophils (Bld) [#/Vol] 0.0 10*3/uL 0.0-0.2 [facility] Basophils/100 WBC Auto (Bld) Ordered By: Gonzalo Smith on 03-19-2023 Basophils/100 WBC (Bld) 0.5 % . [facility] Bilirubin.total [Mass/volume ] in Serum or PlasmaOrdered By: Gonzalo Smith on 03-19-2023 Bilirubin [Mass/Vol] 0.4 mg/dL 0.3-1.0 [facility] Calcium [Mass/volume] in Ser um or PlasmaOrdered By: Gonzalo Smith on 03-19-2023 Calcium [Mass/Vol] 9.1 mg/dL 8.6-10.3 [facility] Carbon dioxide, total [Moles /volume] in Serum or PlasmaOrdered By: Gonzalo Smith on 03-19-2023 CO2 [Moles/Vol] 26.7 mmol/L 21.0-31.0 [facility] Chloride [Moles/volume] in S marylou or PlasmaOrdered By: Gonzalo Smith on 03-19-2023 Chloride [Moles/Vol] 105 mmol/L 98-107 [facility] Complete Blood Count Auto Di ffon 03-19-2023 Basophils (Bld) [#/Vol] 0.0 10*3/uL Normal 0.0-0.2 [facility] Comment on above: Result Comment: PERF ORMED BY: [place] [address] PATHOLOGIST [employer] SPECIALIST ROWAN IRWIN M.D. Performed By: #### M G, PTT, CK, HS TROP, PT, CMP, CBC #### [facility] [address] [place] [address] Basophils/100 WBC (Bld) 0.5 % Normal . [facility] Comment on above: Performed By: #### M G, PTT, CK, HS TROP, PT, CMP, CBC #### [facility] [address] Eosinophils (Bld) [#/Vol] 0.1 10*3/uL Normal 0.0-0.45 [facility] Comment on above: Performed By: #### M G, PTT, CK, HS TROP, PT, CMP, CBC #### [address] Eosinophils/100 WBC (Bld) 1.4 % Normal . [facility] Comment on above: Performed By: #### M G, PTT, CK, HS TROP, PT, CMP, CBC #### [facility] [address] [place] [address] Erythrocyte distribution width (RBC) [Ratio] 16.8 % High 11.9-15.3 [facility] Comment on above: Performed By: #### M G, PTT, CK, HS TROP, PT, CMP, CBC #### [facility] [address] [place] [address] Hematocrit (Bld) [Volume fraction] 31.4 % Low 34.0-46.4 [facility] Comment on above: Performed By: #### M G, PTT, CK, HS TROP, PT, CMP, CBC #### [address] Hemoglobin (Bld) [Mass/Vol] 10.1 g/dL Low 11.8-15.4 [facility] Comment on above: Performed By: #### M G, PTT, CK, HS TROP, PT, CMP, CBC #### [address] Lymphocytes (Bld) [#/Vol] 0.8 10*3/uL Low 1.00-4.8 [facility] Comment on above: Performed By: #### M G, PTT, CK, HS TROP, PT, CMP, CBC #### [address] Lymphocytes/100 WBC (Bld) 10.9 % Normal . [facility] Comment on above: Performed By: #### M G, PTT, CK, HS TROP, PT, CMP, CBC #### [address] MCH (RBC) [Entitic mass] 23.3 pg Low 24.7-34.3 [facility] Comment on above: Performed By: #### M G, PTT, CK, HS TROP, PT, CMP, CBC #### [address] MCV (RBC) [Entitic vol] 72.9 fL Low 80-100 [facility] Comment on above: Performed By: #### M G, PTT, CK, HS TROP, PT, CMP, CBC #### [address] Mean Corpuscular HGB Conc 32.0 g/dL Normal 32.0-35.0 [facility] Comment on above: Performed By: #### M G, PTT, CK, HS TROP, PT, CMP, CBC #### [address] Monocytes (Bld) [#/Vol] 0.6 10*3/uL Normal 0.0-0.8 [facility] Comment on above: Performed By: #### M G, PTT, CK, HS TROP, PT, CMP, CBC #### [address] Monocytes/100 WBC (Bld) 19.02 % Normal 0.00-20.00 [facility] Comment on above: Performed By: #### M G, PTT, CK, HS TROP, PT, CMP, CBC #### [address] Monocytes/100 WBC (Bld) 7.7 % Normal . [facility] Comment on above: Performed By: #### M G, PTT, CK, HS TROP, PT, CMP, CBC #### [address] Neutrophils (Bld) [#/Vol] 5.7 10*3/uL Normal 1.8-7.7 [facility] Comment on above: Performed By: #### M G, PTT, CK, HS TROP, PT, CMP, CBC #### [address] Neutrophils/100 WBC (Bld) 79.5 % Normal . [facility] Comment on above: Performed By: #### M G, PTT, CK, HS TROP, PT, CMP, CBC #### [address] NRBC% 0.0 /100{WBC} Normal 0-0.5 [facility] Comment on above: Performed By: #### M G, PTT, CK, HS TROP, PT, CMP, CBC #### [address] Platelet mean volume (Bld) [Entitic vol] 8.2 fL Normal 6.3-10.7 [facility] Comment on above: Performed By: #### M G, PTT, CK, HS TROP, PT, CMP, CBC #### [place] [address] [place] Platelets (Bld) [#/Vol] 291 10*3/uL Normal 150-450 [facility] Comment on above: Performed By: #### M G, PTT, CK, HS TROP, PT, CMP, CBC #### [address] RBC (Bld) [#/Vol] 4.31 10*6/uL Normal 3.60-5.00 [facility] Comment on above: Performed By: #### M G, PTT, CK, HS TROP, PT, CMP, CBC #### [address] WBC (Bld) [#/Vol] 7.2 10*3/uL Normal 3.8-11.6 [facility] Comment on above: Performed By: #### M G, PTT, CK, HS TROP, PT, CMP, CBC #### [address] Comprehensive Metabolic Pane barbara 03-19-2023 Albumin [Mass/Vol] 3.9 g/dL Normal 3.5-5.7 [facility] Comment on above: Performed By: #### M G, PTT, CK, HS TROP, PT, CMP, CBC #### [address] Albumin/Globulin [Mass ratio] 1.4 {ratio} Normal [facility] Comment on above: Performed By: #### M G, PTT, CK, HS TROP, PT, CMP, CBC #### [address] ALP [Catalytic activity/Vol] 100 U/L Normal 34-104 [facility] Comment on above: Performed By: #### M G, PTT, CK, HS TROP, PT, CMP, CBC #### [address] ALT [Catalytic activity/Vol] 9 U/L Normal 7-52 [facility] Comment on above: Performed By: #### M G, PTT, CK, HS TROP, PT, CMP, CBC #### [facility] [address] Anion gap [Moles/Vol] 11.3 mmol/L Normal 6.0-15.0 [facility] Comment on above: Performed By: #### M G, PTT, CK, HS TROP, PT, CMP, CBC #### [facility] [address] AST [Catalytic activity/Vol] 13 U/L Normal 13-39 [facility] Comment on above: Performed By: #### M G, PTT, CK, HS TROP, PT, CMP, CBC #### [address] Bilirubin [Mass/Vol] 0.4 mg/dL Normal 0.3-1.0 [facility] Comment on above: Performed By: #### M G, PTT, CK, HS TROP, PT, CMP, CBC #### [address] Calcium [Mass/Vol] 9.1 mg/dL Normal 8.6-10.3 [facility] Comment on above: Performed By: #### M G, PTT, CK, HS TROP, PT, CMP, CBC #### [address] Chloride [Moles/Vol] 105 mmol/L Normal 98-107 [facility] Comment on above: Performed By: #### M G, PTT, CK, HS TROP, PT, CMP, CBC #### [address] CO2 [Moles/Vol] 26.7 mmol/L Normal 21.0-31.0 [facility] Comment on above: Performed By: #### M G, PTT, CK, HS TROP, PT, CMP, CBC #### [address] Creatinine [Mass/Vol] 0.80 mg/dL Normal 0.60-1.20 [facility] Comment on above: Performed By: #### M G, PTT, CK, HS TROP, PT, CMP, CBC #### [facility] [address] Creatinine Clr Calc Pharmacy 57.01 [facility] Comment on above: Performed By: #### M G, PTT, CK, HS TROP, PT, CMP, CBC #### [facility] [address] [place] [address] [place] GFR/1.73 sq M.predicted MDRD (S/P/Bld) [Vol rate/Area] mL/min/{1.73_m2} [facility] Comment on above: Performed By: #### M G, PTT, CK, HS TROP, PT, CMP, CBC #### [facility] [address] Globulin (S) [Mass/Vol] 2.8 g/dL [facility] Comment on above: Performed By: #### M G, PTT, CK, HS TROP, PT, CMP, CBC #### [facility] [address] Glucose [Mass/Vol] 106 mg/dL High 70-100 [facility] Comment on above: Result Comment: [facility] Glucose Reference Range is dependent on time and content of last meal. Glucose of more than 200 mg/dL in a nonstressed, ambulatory subject supports the diagnosis of Diabetes Mellitus. ADA recommended reference range Performed By: #### M G, PTT, CK, HS TROP, PT, CMP, CBC #### [facility] [address] Potassium [Moles/Vol] 4.0 mmol/L Normal 3.5-5.1 [facility] Comment on above: Performed By: #### M G, PTT, CK, HS TROP, PT, CMP, CBC #### [facility] [address] Protein [Mass/Vol] 6.7 g/dL Normal 6.4-8.9 [facility] Comment on above: Performed By: #### M G, PTT, CK, HS TROP, PT, CMP, CBC #### [facility] [address] [place] [address] [place] Sodium [Moles/Vol] 139 mmol/L Normal 136-145 [facility] Comment on above: Performed By: #### M G, PTT, CK, HS TROP, PT, CMP, CBC #### [facility] [address] [place] [address] [place] Urea nitrogen [Mass/Vol] 18 mg/dL Normal 7-25 [facility] Comment on above: Performed By: #### M G, PTT, CK, HS TROP, PT, CMP, CBC #### [facility] [address] [place] [id number] [place] Creatine Kinaseon 03-19-2023 CK [Catalytic activity/Vol] 40 U/L Normal [facility] Comment on above: Performed By: #### M G, PTT, CK, HS TROP, PT, CMP, CBC ####[facility] [id number] [place] [address] [facility] Creatine kinase [Enzymatic a ctivity/volume] in Serum or PlasmaOrdered By: Gonzalo Smith on 03-19-2023 CK [Catalytic activity/Vol] 40 U/L [facility] Creatinine [Mass/volume] in Serum or PlasmaOrdered By: Gonzalo Smith on 03-19-2023 Creatinine [Mass/Vol] 0.80 mg/dL 0.60-1.20 [facility] ECG 12 lead ECGon 03-19-2023 ECG 12 lead ECG [facility] [place] [address] [place] [address] Electrocardiograph Report Signed Patient: Jessy Dow MR#: [id number] 77 : 1940 Acct:[id number] Age/Sex: 82 / F ADM Date: 03/19/23 Loc: ER Room: Type: [facility] ER Attending Dr: Ordering Provider: Gonzalo Smith [...] was found Confirmed by GONZALO SMITH MD ([id number]) on 03/20/2023 5:40:46 AM Referred By: Electronically Signed By:GONZALO SMITH MD Transcribed By: MUS Signed By Gonzalo Smith Jr, MD [id number] Normal [facility] Eosinophils Auto (Bld) [#/Vo l]Ordered By: Gonzalo Smith on 03-19-2023 Eosinophils (Bld) [#/Vol] 0.1 10*3/uL 0.0-0.45 [facility] Eosinophils/100 WBC Auto (Bl d)Ordered By: Gonzalo Smith on 03-19-2023 Eosinophils/100 WBC (Bld) 1.4 % . [facility] Erythrocyte distribution wid th Auto (RBC) [Ratio]Ordered By: Gonzalo Smith on 03-19-2023 Erythrocyte distribution width (RBC) [Ratio] 16.8 % 11.9-15.3 [facility] Globulin Calc (S) [Mass/Vol] Ordered By: Gonzalo Smith on 03-19-2023 Globulin (S) [Mass/Vol] 2.8 g/dL [facility] Glucose [Mass/volume] in Ser um or PlasmaOrdered By: Gonzalo Smith on 03-19-2023 Glucose [Mass/Vol] 106 mg/dL 70-100 [facility] Comment on above: ADA recommended refe rence rangeRandom Glucose Reference Range is dependent on time and content of last meal. Glucose of more than 200 mg/dL in a nonstressed, ambulatory subject supports the diagnosis of Diabetes Mellitus. Hematocrit Auto (Bld) [Volum e fraction]Ordered By: Gonzalo Smith on 03-19-2023 Hematocrit (Bld) [Volume fraction] 31.4 % 34.0-46.4 [facility] Hemoglobin [Mass/volume] in BloodOrdered By: Gonzalo Smith on 03-19-2023 Hemoglobin (Bld) [Mass/Vol] 10.1 g/dL 11.8-15.4 [facility] Laboratory - CoagulationOrde red By: Gonzalo Smith on 03-19-2023 PT Coag (PPP) [Time] 13.7 s 9.0-12.9 [facility] Leukocytes [#/volume] correc qi for nucleated erythrocytes in Blood by Automated counOrdered By: Gonzalo Smith on 03-19-2023 WBC corrected for nucl RBC Auto (Bld) [#/Vol] 7.2 10*3/uL 3.8-11.6 [facility] Lymphocytes Auto (Bld) [#/Vo l]Ordered By: Gonzalo Smith on 03-19-2023 Lymphocytes (Bld) [#/Vol] 0.8 10*3/uL 1.00-4.8 [facility] Lymphocytes/100 WBC Auto (Bl d)Ordered By: Gonzalo Smith on 03-19-2023 Lymphocytes/100 WBC (Bld) 10.9 % . [facility] MCH Auto (RBC) [Entitic mass ]Ordered By: Gonzalo Smith on 03-19-2023 MCH (RBC) [Entitic mass] 23.3 pg 24.7-34.3 [facility] MCHC Auto (RBC) [Mass/Vol]Or dered By: Gonzalo Smith on 03-19-2023 MCHC (RBC) [Mass/Vol] 32.0 g/dL 32.0-35.0 [facility] MCV Auto (RBC) [Entitic vol] Ordered By: Gonzalo Smith on 03-19-2023 MCV (RBC) [Entitic vol] 72.9 fL 80-100 [facility] Magnesiumon 03-19-2023 Magnesium [Mass/Vol] 1.9 mg/dL Normal 1.9-2.7 [facility] Comment on above: Result Comment: PERF ORMED BY: [facility] [address] [place] [address] PATHOLOGIST SE[employer]ET[employer] SPECIALIST ROWAN IRWIN M.D. Performed By: #### M G, PTT, CK, HS TROP, PT, CMP, CBC ####[facility] [id number] [place] [address] [facility] Magnesium [Mass/volume] in S marylou or PlasmaOrdered By: Gonzalo Smith on 03-19-2023 Magnesium [Mass/Vol] 1.9 mg/dL 1.9-2.7 [facility] Monocyte distribution width [Entitic volume] in Blood by AutomatedOrdered By: Gonzalo Smith on 03-19-2023 Monocyte distribution width Auto (Bld) [Entitic vol] 19.02 % 0.00-20.00 [facility] Monocytes Auto (Bld) [#/Vol] Ordered By: Gonzalo Smith on 03-19-2023 Monocytes (Bld) [#/Vol] 0.6 10*3/uL 0.0-0.8 [facility] Monocytes/100 WBC Auto (Bld) Ordered By: Gonzalo Smith on 03-19-2023 Monocytes/100 WBC (Bld) 7.7 % . [facility] Neutrophils Auto (Bld) [#/Vo l]Ordered By: Gonzalo Smith on 03-19-2023 Neutrophils (Bld) [#/Vol] 5.7 10*3/uL 1.8-7.7 [facility] Neutrophils/100 WBC Auto (Bl d)Ordered By: Gonzalo Smiht on 03-19-2023 Neutrophils/100 WBC (Bld) 79.5 % . [facility] No Panel InformationOrdered By: Gonzalo Smith on 03-19-2023 Estimated GFR (CKD-EPI) > 60.0 mL/Min [facility] Creatinine Clearance (Chem 57.01 [facility] Nucleated erythrocytes [Pres ence] in Blood by Automated countOrdered By: Gonzalo Smith on 03-19-2023 Nucleated RBC Auto Ql (Bld) 0.0 /100{WBC} 0-0.5 [facility] Partial Thromboplastin Timeo n 03-19-2023 aPTT Coag (Bld) [Time] 33.6 s Normal 25.1-36.5 [facility] Comment on above: Result Comment: PERF ORMED BY: [facility] [address] [place] [address] PATHOLOGIST [employer] SPECIALIST ROWAN IRWIN M.D. Performed By: #### M G, PTT, CK, HS TROP, PT, CMP, CBC #### [address] Platelet mean volume Auto (B ld) [Entitic vol]Ordered By: Gonzalo Smith on 03-19-2023 Platelet mean volume (Bld) [Entitic vol] 8.2 fL 6.3-10.7 [facility] Platelet poor plasma interna tional normalized ratio (INR) by coagulation assay (relatOrdered By: Gonzalo Smith on 03-19-2023 INR Coag (PPP) [Relative time] 1.2 {INR} [facility] Comment on above: INR Therapeutic Rang [...] 03-19-2023 Platelets (Bld) [#/Vol] 291 10*3/uL 150-450 [facility] Potassium [Moles/volume] in Serum or PlasmaOrdered By: Gonzalo Smith on 03-19-2023 Potassium [Moles/Vol] 4.0 mmol/L 3.5-5.1 [facility] Protein [Mass/volume] in Ser um or PlasmaOrdered By: Gonzalo Smith on 03-19-2023 Protein [Mass/Vol] 6.7 g/dL 6.4-8.9 [facility] Prothrombin Time INRon 03-19 INR Coag (PPP) [Relative time] 1.2 {INR} Normal [facility] Comment on above: Result Comment: INR [...] CK, HS TROP, PT, CMP, CBC #### [facility] [address] [place] [address] PT Coag (PPP) [Time] 13.7 s High 9.0-12.9 [facility] Comment on above: Performed By: #### M G, PTT, CK, HS TROP, PT, CMP, CBC #### [facility] [address] RBC Auto (Bld) [#/Vol]Ordere d By: Gonzalo Smith on 03-19-2023 RBC (Bld) [#/Vol] 4.31 10*6/uL 3.60-5.00 [facility] Serum or plasma albumin/glob ulin mass ratioOrdered By: Gonzalo Smith on 03-19-2023 Albumin/Globulin [Mass ratio] 1.4 {ratio} [facility] Serum or plasma anion gap de terminationOrdered By: Gonzalo Smith on 03-19-2023 Anion gap [Moles/Vol] 11.3 mmol/L 6.0-15.0 [facility] Sodium [Moles/volume] in Ser um or PlasmaOrdered By: Gonzalo Smith on 03-19-2023 Sodium [Moles/Vol] 139 mmol/L 136-145 [facility] Troponin I High Sensitivityo n 03-19-2023 Troponin I High Sensitivity 4.1 pg/mL Normal 0.0-15.0 [facility] Comment on above: Result Comment: PERF ORMED BY: [facility] [address] [place] [address] PATHOLOGIST SE[employer] SPECIALIST ROWAN IRWIN M.D. Performed By: #### M G, PTT, CK, HS TROP, PT, CMP, CBC ####[facility] [id number] Troponin I.cardiac [Mass/vol ume] in Serum or Plasma by Detection limit <= 0.01 ng/Ordered By: Gonzalo Smith on 03-19-2023 Troponin I.cardiac DL <= 0.01 ng/mL [Mass/Vol] 4.1 pg/mL 0.0-15.0 [facility] Urea nitrogen [Mass/volume] in Serum or PlasmaOrdered By: Gonzalo Smith on 03-19-2023 Urea nitrogen [Mass/Vol] 18 mg/dL 7-25 [facility] WBC Auto (Bld) [#/Vol]Ordere d By: Gonzalo Smith on 03-19-2023 WBC (Bld) [#/Vol] 7.2 10*3/uL 3.8-11.6 [facility] Office Visit (Cardiology)on 10-14-2022 Follow-up visit Diagnoses/Problems [...] emergency department [facility] the record from the visit were reviewed [...] be getting under control. Charmaine Tilley MD, [facility] Surgical History Problems History of Appendectomy History [...] Neurological: d (more content not included)... Normal [employer] Tobacco Screening.on 023 Adult depression screening assessment No [facility] [employer] 250 DO Work Phone: Fall risk assessment a) No falls within the last year [facility] [employer] DO Work Phone: Tobacco use status CPHS b) No [facility] [employer] DO Work Phone: CBC AUTO DIFFon 10-04-2022 BASO # 0.0 103/ul Normal 0.0-0.1 [facility] Comment on above: Performed By: #### C BC #### [facility] [address] [place] [address] Dr. Madhuri Justice Basophils/100 WBC (Bld) 0.3 % Normal 0.2-2.0 [facility] Comment on above: Performed By: #### C BC #### [facility] [address] [place] [address] Dr. Madhuri Justice EO # 0.1 103/ul Normal 0.0-0.7 [facility] Comment on above: Performed By: #### C BC #### [facility] [address] [place] [address] Dr. Madhuri Justice Eosinophils/100 WBC (Bld) 1.7 % Normal 0.9-7.0 [facility] Comment on above: Performed By: #### C BC #### [facility] [address] [place] [address] Dr. Madhuri Justice Erythrocyte distribution width (RBC) [Ratio] 16.2 % Critically high 11.0-15.0 [facility] Comment on above: Performed By: #### C BC #### [facility] [address] [place] [address] Dr. Madhuri Justice Hematocrit (Bld) [Volume fraction] 33.0 % Critically low 36.0-48.0 [facility] Comment on above: Performed By: #### C BC #### [facility] [address] [place] [address] Dr. Madhuri Justice Hemoglobin (Bld) [Mass/Vol] 10.9 g/dL Critically low 12.0-16.0 [facility] Comment on above: Performed By: #### C BC #### [facility] [address] [place] [address] Dr. Madhuri Justice IG # 0.02 10e3/ul Normal 0.00-0.03 [facility] Comment on above: Performed By: #### C BC #### [facility] [address] [place] [address] Dr. Madhuri Justice IG % 0.3 % Normal 0.0-0.5 [facility] Comment on above: Performed By: #### C BC #### [facility] [address] [place] [address] Dr. Madhuri Justice LYMPH # 0.8 103/ul Critically low 1.2-3.8 [facility] Comment on above: Performed By: #### C BC #### [facility] [address] [place] [address] Dr. Madhuri Justice Lymphocytes/100 WBC (Bld) 13.4 % Critically low 20.5-60.0 [facility] Comment on above: Performed By: #### C BC #### [facility] [address] [place] [address] Dr. Madhuri Justice MANUAL DIFF REQ NO Normal [facility] Comment on above: Performed By: #### C BC #### [facility] [address] [place] [address] Dr. Madhuri Justice MCH (RBC) [Entitic mass] 24.4 pg Critically low 26.7-34.0 [facility] Comment on above: Performed By: #### C BC #### [facility] [address] [place] [address] Dr. Madhuri Justice MCHC (RBC) [Mass/Vol] 33.0 g/dL Normal 29.9-35.2 [facility] Comment on above: Performed By: #### C BC #### [facility] [address] [place] [address] Dr. Madhuri Justice MCV (RBC) [Entitic vol] 73.8 fL Critically low 81.0-99.0 [facility] Comment on above: Performed By: #### C BC #### [facility] [address] [place] [address] Dr. Madhuri Justice MONO # 0.5 103/ul Normal 0.3-0.8 [facility] Comment on above: Performed By: #### C BC #### [facility] [address] [place] [address] Dr. Madhuri Justice Monocytes/100 WBC (Bld) 8.0 % Normal 1.7-12.0 [facility] Comment on above: Performed By: #### C BC #### [facility] [address] [place] [address] Dr. Madhuri Justice NEUT # 4.6 103/ul Normal 1.4-6.5 [facility] Comment on above: Performed By: #### C BC #### [facility] [address] [place] [address] Dr. Madhuri Justice Neutrophils/100 WBC (Bld) 76.3 % Critically high 43.0-75.0 [facility] Comment on above: Performed By: #### C BC #### [facility] [address] [place] [address] Dr. Madhuri Justice Platelet mean volume (Bld) [Entitic vol] 9.5 fL Normal 9.5-13.5 [facility] Comment on above: Performed By: #### C BC #### [facility] [address] [place] [address] Dr. Madhuri Justice PLT 249 103/ul Normal 150-450 [facility] Comment on above: Performed By: #### C BC #### [facility] [address] [place] [address] Dr. Madhuri Justice RBC 4.47 106/ul Normal 4.20-5.40 [facility] Comment on above: Performed By: #### C BC #### [facility] [address] [place] [address] Dr. Madhuri Justice WBC 6.0 103/ul Normal 4.0-11.0 [facility] Comment on above: Performed By: #### C BC #### [facility] [address] [place] [address] Dr. Madhuri Justice LIPID PROFILEon 10-04-2022 CHOL-HDL RATIO NORM SEE BELOW Normal [facility] Comment on above: Result Comment: 3.3 - 4.4 LOW RISK 4.4 - 7.1 AVERAGE RISK 7.1 - 11.0 MODERATE RISK >11.0 HIGH RISK Performed By: #### L ACT #### [facility] [address] [place] [address] Dr. Madhuri Justice Cholesterol [Mass/Vol] 159 mg/dL Normal <=200 [facility] Comment on above: Performed By: #### L ACT #### [facility] [address] [place] [address] Dr. Madhuri Justice Cholesterol in HDL [Mass/Vol] 54 mg/dL Normal 40-60 [facility] Comment on above: Performed By: #### L ACT #### [facility] [address] [place] [address] Dr. Madhuri Justice Cholesterol in LDL [Mass/Vol] 84.4 mg/dL Normal [facility] Comment on above: Performed By: #### L ACT #### [facility] [address] [address] [address] Madhuri Justice Cholesterol.total/Chol esterol in HDL [Mass ratio] 2.9 {ratio} Normal [facility] Comment on above: Performed By: #### L ACT #### [facility] [address] [address] [address] Madhuri Justice HDL NORMAL > or = 60 mg/dl - LO W CARDIOVASCULAR RISK <40 mg/dl - HIGH CARDIOVASCULAR RISK Normal [facility] Comment on above: Performed By: #### L ACT #### [facility] [address] [address] [address] Madhuri Justice LDL CALC NORMAL SEE BELOW Normal [facility] Comment on above: Result Comment: <100 mg/dl OPTIMAL 100 - 129 mg/dl NEAR OR ABOVE OPTIMAL 130 - 159 mg/dl BORDERLINE HIGH 160 - 189 mg/dl HIGH >190 mg/dl VERY HIGH Performed By: #### L ACT #### [facility] [address] [place] [address] Dr. Madhuri Justice Triglyceride [Mass/Vol] 103 mg/dL Normal <=150 [facility] Comment on above: Performed By: #### L ACT #### [facility] [address] [address] [address] Madhuri Justice VLDL CALC 20.6 mg/dL Normal [facility] Comment on above: Performed By: #### L ACT #### [facility] [address] [place] [address] Dr. Madhuri Justice PROF 14(COMP METB)on 023 Albumin [Mass/Vol] 3.0 g/dL Critically low 3.4-5.0 [facility] Comment on above: Performed By: #### L IPID, CMP #### [facility] [address] [address] [address] Madhuri Justice Albumin/Globulin [Mass ratio] 0.8 {ratio} Normal [facility] Comment on above: Performed By: #### L IPID, CMP #### [facility] [address] [address] [address] Madhuri Justice ALP [Catalytic activity/Vol] 103 U/L Normal 46-116 [facility] Comment on above: Performed By: #### L IPID, CMP #### [facility] [address] [address] [address] Madhuri Justice ALT [Catalytic activity/Vol] 10 U/L Critically low 14-59 [facility] Comment on above: Performed By: #### L IPID, CMP #### [facility] [address] [address] [address] Madhuri Justice Anion gap [Moles/Vol] 10.5 mmol/L Normal [facility] Comment on above: Performed By: #### L IPID, CMP #### [facility] [address] [address] [address] Madhuri Justice AST [Catalytic activity/Vol] 13 U/L Critically low 15-37 [facility] Comment on above: Performed By: #### L IPID, CMP #### [facility] [address] [address] [address] Madhuri Justice Bilirubin [Mass/Vol] 0.6 mg/dL Normal 0.2-1.0 [facility] Comment on above: Performed By: #### L IPID, CMP #### [facility] [address] [address] [address] Madhuri Justice Calcium [Mass/Vol] 8.9 mg/dL Normal 8.5-10.1 [facility] Comment on above: Performed By: #### L IPID, CMP #### [facility] [address] [address] [address] Madhuri Justice Chloride [Moles/Vol] 105 mmol/L Normal 98-107 [facility] Comment on above: Performed By: #### L IPID, CMP #### [facility] [address] [address] [address] Madhuri Justice CO2 [Moles/Vol] 30.6 mmol/L Normal 21.0-32.0 [facility] Comment on above: Performed By: #### L IPID, CMP #### [facility] [address] [address] [address] Madhuri Justice Creatinine [Mass/Vol] 0.85 mg/dL Normal 0.55-1.02 [facility] Comment on above: Performed By: #### L IPID, CMP #### [facility] [address] [place] [address] Dr. Madhuri Justice EGFR-AF MONTENEGRIN >60 Normal >=60 [facility] Comment on above: Performed By: #### L IPID, CMP #### [facility] [address] [address] [address] Madhuri Justiec EGFR-NON AF MONTENEGRIN >60 Normal >=60 [facility] Comment on above: Performed By: #### L IPID, CMP #### [facility] [address] [address] [address] Madhuri Justice Globulin (S) [Mass/Vol] 3.9 g/dL Normal [facility] Comment on above: Performed By: #### L IPID, CMP #### [facility] [address] [place] [address] Dr. Madhuri Justice Glucose [Mass/Vol] 112 mg/dL Critically high 74-106 [facility] Comment on above: Performed By: #### L IPID, CMP #### [facility] [address] [place] [address] Dr. Madhuri Justice Potassium [Moles/Vol] 4.1 mmol/L Normal 3.5-5.1 [facility] Comment on above: Performed By: #### L IPID, CMP #### [facility] [address] [place] [address] Dr. Madhuri Justice Protein [Mass/Vol] 6.9 g/dL Normal 6.4-8.2 [facility] Comment on above: Performed By: #### L IPID, CMP #### [facility] [address] [place] [address] Dr. Madhuri Justice Sodium [Moles/Vol] 142 mmol/L Normal 136-145 [facility] Comment on above: Performed By: #### L IPID, CMP #### [facility] [address] [place] [address] Dr. Madhuri Justice Urea nitrogen [Mass/Vol] 15.0 mg/dL Normal 7.0-18.0 [facility] Comment on above: Performed By: #### L IPID, CMP #### [facility] [address] [address] [address] Madhuri Justice Urea nitrogen/Creatinine [Mass ratio] 17.6 mg/mg Normal [facility] Comment on above: Performed By: #### L IPID, CMP #### [facility] [address] [address] [address] Madhuri Justice Activated partial thrombopla stin time (aPTT) in platelet poor plasma by coagulation aOrdered By: Robby York on 06-06-2022 aPTT Coag (PPP) [Time] 32.7 s 25.1-36.5 [facility] Albumin [Mass/volume] in Ser um or PlasmaOrdered By: Robby York on 06-06-2022 Albumin [Mass/Vol] 2.8 g/dL 3.2-5.5 [facility] Automated erythrocytes count in urine sediment (number/area)Ordered By: Natalie Brian on 06-06-2022 RBC Auto (Urine sed) [#/Area] None seen [HPF] 0-4 [facility] Automated leukocytes count i n urine sediment (number/area)Ordered By: Natalie Brian on 06-06-2022 WBC Auto (Urine sed) [#/Area] 0-1 [HPF] 0-4 [facility] Basophils Auto (Bld) [#/Vol] Ordered By: Robby York on 06-06-2022 Basophils (Bld) [#/Vol] 0.0 10*3/uL 0.0-0.2 [facility] Basophils/100 WBC Auto (Bld) Ordered By: Robby York on 06-06-2022 Basophils/100 WBC (Bld) 0.5 % . [facility] Bilirubin Test strip Ql (U)O rdered By: Natalie Brian on 06-06-2022 Bilirubin Ql (U) Negative Negative [facility] Blood hemoglobin measurement (mass/volume)Ordered By: Robby York on 06-06-2022 Hemoglobin (Bld) [Mass/Vol] 9.3 g/dL 11.8-15.4 [facility] Blood leukocytes automated c ount (number/volume)Ordered By: Robby York on 06-06-2022 WBC (Bld) [#/Vol] 5.1 10*3/uL 4.5-11.0 [facility] COVID-19 SOFIAOrdered By: Chris York on 06-06-2022 SARS-CoV+SARS-CoV-2 (COVID-19) Ag IA.rapid Ql (Resp) Negative Negative [facility] Comment on above: This is a duplicate Joselyn SARS Antigen (TERE) result to be used for statistical tracking purpose only. Color Auto (U)Ordered By: Honorio Brian on 06-06-2022 Color (U) Yellow Yellow [facility] Creatinine and Glomerular fi ltration rate.predicted panel (S/P/Bld)Ordered By: Robby York on 06-06-2022 Creatinine [Mass/Vol] 0.84 mg/dL 0.44-1.03 [facility] Eosinophils Auto (Bld) [#/Vo l]Ordered By: Robby York on 06-06-2022 Eosinophils (Bld) [#/Vol] 0.1 10*3/uL 0.0-0.45 [facility] Eosinophils/100 WBC Auto (Bl d)Ordered By: Robby York on 06-06-2022 Eosinophils/100 WBC (Bld) 1.9 % . [facility] Erythrocyte distribution wid th Auto (RBC) [Ratio]Ordered By: Robby York on 06-06-2022 Erythrocyte distribution width (RBC) [Ratio] 16.7 % 11.9-15.3 [facility] Estimated glomerular filtrat ion rate (GFR) non- AmericanOrdered By: Robby York on 06-06-2022 GFR/1.73 sq M.predicted among non-blacks MDRD (S/P/Bld) [Vol rate/Area] > 60 mL/Min [facility] Globulin Calc (S) [Mass/Vol] Ordered By: Robby York on 06-06-2022 Globulin (S) [Mass/Vol] 2.9 g/dL [facility] Hematocrit Auto (Bld) [Volum e fraction]Ordered By: Robby York on 06-06-2022 Hematocrit (Bld) [Volume fraction] 29.5 % 34.0-46.4 [facility] Ketones Auto test strip (U) [Mass/Vol]Ordered By: Natalie Brina on 06-06-2022 Ketones (U) [Mass/Vol] Negative Negative Fi [facility] - Chemistry and C hemistry - challengeOrdered By: Robby York on 06-06-2022 Natriuretic peptide B (Bld) [Mass/Vol] 37.0 pg/mL 5-100 [facility] - CoagulationOrde red By: Robby York on 06-06-2022 PT Coag (PPP) [Time] 17.4 s 9.0-12.9 [facility] - Hematology and Cell countsOrdered By: Robby York on 06-06-2022 Nucleated RBC/100 WBC (Bld) [Ratio] 0.0 % 0-0.5 [facility] - UrinalysisOrder ed By: Natalie Brian on 06-06-2022 Hyaline casts LM Ql (Urine sed) 0-8 [LPF] 0-8 [facility] Lymphocytes Auto (Bld) [#/Vo l]Ordered By: Robby York on 06-06-2022 Lymphocytes (Bld) [#/Vol] 0.7 10*3/uL 1.00-4.8 [facility] Lymphocytes/100 WBC Auto (Bl d)Ordered By: Robby York on 06-06-2022 Lymphocytes/100 WBC (Bld) 13.9 % . [facility] MCH Auto (RBC) [Entitic mass ]Ordered By: Robby York on 06-06-2022 MCH (RBC) [Entitic mass] 24.2 pg 24.7-34.3 [facility] MCHC Auto (RBC) [Mass/Vol]Or dered By: Robby York on 06-06-2022 MCHC (RBC) [Mass/Vol] 31.4 g/dL 32.0-35.0 [facility] MCV Auto (RBC) [Entitic vol] Ordered By: Robby York on 06-06-2022 MCV (RBC) [Entitic vol] 76.9 fL 80-100 [facility] Monocytes Auto (Bld) [#/Vol] Ordered By: Robby York on 06-06-2022 Monocytes (Bld) [#/Vol] 0.5 10*3/uL 0.0-0.8 [facility] Monocytes/100 WBC Auto (Bld) Ordered By: Robby York on 06-06-2022 Monocytes/100 WBC (Bld) 9.6 % . [facility] Neutrophils Auto (Bld) [#/Vo l]Ordered By: Robby York on 06-06-2022 Neutrophils (Bld) [#/Vol] 3.8 10*3/uL 1.8-7.7 [facility] Neutrophils/100 WBC Auto (Bl d)Ordered By: Robby York on 06-06-2022 Neutrophils/100 WBC (Bld) 74.1 % . [facility] Nitrite Test strip Ql (U)Ord ered By: Natalie Brian on 06-06-2022 Nitrite Ql (U) Negative Negative [facility] No Panel InformationOrdered By: Robby York on 06-06-2022 Estimated GFR () > 60 mL/Min [facility] Comment on above: GFR estimated refere nce range: According to KDOQI guidelines, <60 ml/min/1.73m2 is sufficient to diagnose a patient with chronic kidney disease. Pharmacy Creatinine Clearance (Chem 83.60 [facility] SARS Antigen (LFIA) [facility] Platelet mean volume Auto (B ld) [Entitic vol]Ordered By: Robby York on 06-06-2022 Platelet mean volume (Bld) [Entitic vol] 8.1 fL 6.3-10.7 [facility] Platelet poor plasma interna tional normalized ratio (INR) by coagulation assay (relatOrdered By: Robby York on 06-06-2022 INR Coag (PPP) [Relative time] 1.5 {INR} [facility] Comment on above: INR Therapeutic Rang [...] 06-06-2022 Platelets (Bld) [#/Vol] 225 10*3/uL 150-450 [facility] Protein Auto test strip (U) [Mass/Vol]Ordered By: Natalie Brian on 06-06-2022 Protein (U) [Mass/Vol] Negative Negative [facility] Protein [Mass/volume] in Ser um or PlasmaOrdered By: Robby York on 06-06-2022 Protein [Mass/Vol] 5.7 g/dL 6.1-7.9 [facility] RBC Auto (Bld) [#/Vol]Ordere d By: Robby York on 06-06-2022 RBC (Bld) [#/Vol] 3.84 10*6/uL 3.60-5.00 [facility] Serum or plasma alanine singleton otransferase measurement without P-5'-P (enzymatic activiOrdered By: Rboby York on 06-06-2022 ALT No additional P-5'-P [Catalytic activity/Vol] 10 U/L 10-60 [facility] Serum or plasma albumin/glob ulin mass ratioOrdered By: Robby York on 06-06-2022 Albumin/Globulin [Mass ratio] 1.0 {ratio} [facility] Serum or plasma alkaline antwan sphatase measurement (enzymatic activity/volume)Ordered By: Robby York on 06-06-2022 ALP [Catalytic activity/Vol] 85 U/L 32-92 [facility] Serum or plasma anion gap de terminationOrdered By: Robby York on 06-06-2022 Anion gap [Moles/Vol] 12.5 mmol/L 6.0-15.0 [facility] Serum or plasma aspartate am inotransferase measurement (enzymatic activity/volume)Ordered By: Robby York on 06-06-2022 AST [Catalytic activity/Vol] 15 U/L 10-42 [facility] Serum or plasma calcium arabella urement (mass/volume)Ordered By: Robby York on 06-06-2022 Calcium [Mass/Vol] 8.3 mg/dL 8.2-10.2 [facility] Serum or plasma chloride marlen surement (moles/volume)Ordered By: Robby York on 06-06-2022 Chloride [Moles/Vol] 106 mmol/L 95-114 [facility] Serum or plasma glucose arabella urement (mass/volume)Ordered By: Robby York on 06-06-2022 Glucose [Mass/Vol] 115 mg/dL 70-100 [facility] Comment on above: ADA recommended refe rence range Random Glucose Reference Range is dependent on time and content of last meal. Glucose of more than 200 mg/dL in a nonstressed, ambulatory subject supports the diagnosis of Diabetes Mellitus. Serum or plasma potassium me asurement (moles/volume)Ordered By: Robby York on 06-06-2022 Potassium [Moles/Vol] 3.7 mmol/L 3.5-5.1 [facility] Serum or plasma sodium measu rement (moles/volume)Ordered By: Robby York on 06-06-2022 Sodium [Moles/Vol] 140 mmol/L 136-146 [facility] Serum or plasma total biliru bin measurement (mass/volume)Ordered By: Robby York on 06-06-2022 Bilirubin [Mass/Vol] 0.4 mg/dL 0.3-1.2 [facility] Serum or plasma total carbon dioxide measurement (moles/volume)Ordered By: Robby York on 06-06-2022 CO2 [Moles/Vol] 25.2 mmol/L 22.0-30.0 [facility] Serum or plasma urea nitroge n measurement (mass/volume)Ordered By: Robby York on 06-06-2022 Urea nitrogen [Mass/Vol] 14 mg/dL 9-23 [facility] Specific gravity Auto test s trip (U) [Rel density]Ordered By: Natalie Brian on 06-06-2022 Specific gravity (U) [Rel density] 1.013 1.001-1.03 0 [facility] Squamous epithelial cells de tection in urine sediment by light microscopyOrdered By: Natalie Brian on 06-06-2022 Epithelial cells.squamous LM Ql (Urine sed) 0-1 [HPF] 0-2 [facility] Troponin I.cardiac [Mass/vol ume] in Serum or Plasma by High sensitivity methodOrdered By: Natalie Brian on 06-06-2022 Troponin I.cardiac High sensitivity method [Mass/Vol] 7 pg/mL 0-15 [facility] Urine bacteria detection by automated methodOrdered By: Natalie Brian on 06-06-2022 Bacteria Auto Ql (U) None seen None Seen [facility] Urine clarity by refractomet ry automatedOrdered By: Natalie Brian on 06-06-2022 Clarity Refractometry automated (U) Clear Clear [facility] Urine glucose measurement by automated test strip (mass/volume)Ordered By: Natalie Brian on 06-06-2022 Glucose Auto test strip (U) [Mass/Vol] Normal mg/dL Normal [facility] Urine hemoglobin detection b y automated test stripOrdered By: Natalie Brian on 06-06-2022 Hemoglobin Auto test strip Ql (U) Negative Negative [facility] Urine leukocyte esterase det ection by automated test stripOrdered By: Natalie Brian on 06-06-2022 Leukocyte esterase Auto test strip Ql (U) 2+ Negative [facility] Urobilinogen Auto test strip (U) [Mass/Vol]Ordered By: Natalie Brian on 06-06-2022 Urobilinogen (U) [Mass/Vol] Normal mg/dL Normal [facility] pH Auto test strip (U)Ordere d By: Natalie Brian on 06-06-2022 pH (U) 7.0 [pH] 5.0-9.0 [facility] Tobacco Screening.on 022 Adult depression screening assessment No [facility] [employer] 250 DO Work Phone: Fall risk assessment a) No falls within the last year [facility] [employer] 250 DO Work Phone: Tobacco use status CPHS b) No [facility] [employer] 250 DO Work Phone: OVA AND PARASITE EXAMINATION on 12-27-2021 Ova + Parasite Exam Final report Normal [facility] Comment on above: Result Comment: Thes e results were obtained using wet preparation(s) and trichrome stained smear. This test does not include testing for Cryptosporidium parvum, Cyclospora, or Microsporidia. Performed By: #### O VAPE #### [facility] [address] [place] [address] Dr. Madhuri Justice Result 1 Comment Normal [facility] Comment on above: Result Comment: No o va, cysts, or parasites seen. . One negative specimen does not rule out the possibility of a parasitic infection. Performed By: #### O VAPE #### [facility] [address] [place] [address] Dr. Madhuri Justice GIARDIA LAMBLIA AND CRYPTO D ETECTIONon 12-18-2021 Cryptosporidium EIA Negative Normal Negative [facility] Comment on above: Performed By: #### G IACRY #### [facility] [address] [place] [address] Dr. Madhuri Justice Giardia lamblia Ag, EIA Negative Normal Negative [facility] Comment on above: Performed By: #### G IACRY #### [facility] [address] [place] [address] Dr. Madhuri Justice C. DIFF PCRon 12-16-2021 C. DIFFICILE PCR Negative Normal NEGATIVE [facility] Comment on above: Performed By: #### C DIFPOC #### [facility] [address] [place] [address] Dr. Madhuri Justice CBC AUTO DIFFon 12-16-2021 BASO # 0.0 103/ul Normal 0.0-0.1 [facility] Comment on above: Performed By: #### C BC #### [facility] [address] [place] [address] Dr. Madhuri Justice Basophils/100 WBC (Bld) 0.4 % Normal 0.2-2.0 [facility] Comment on above: Performed By: #### C BC #### [facility] [address] [place] [address] Dr. Madhuri Justice EO # 0.1 103/ul Normal 0.0-0.7 [facility] Comment on above: Performed By: #### C BC #### [facility] [address] [place] [address] Dr. Madhuri Justice Eosinophils/100 WBC (Bld) 1.0 % Normal 0.9-7.0 [facility] Comment on above: Performed By: #### C BC #### [facility] [address] [place] [address] Dr. Madhuri Justice Erythrocyte distribution width (RBC) [Ratio] 16.2 % Critically high 11.0-15.0 [facility] Comment on above: Performed By: #### C BC #### [facility] [address] [place] [address] Dr. Madhuri Justice Hematocrit (Bld) [Volume fraction] 37.7 % Normal 36.0-48.0 [facility] Comment on above: Performed By: #### C BC #### [facility] [address] [place] [address] Dr. Madhuri Justice Hemoglobin (Bld) [Mass/Vol] 11.2 g/dL Critically low 12.0-16.0 [facility] Comment on above: Performed By: #### C BC #### [facility] [address] [facility] [place] [address] Dr. Madhuri Justice IG # 0.01 10e3/ul Normal 0.00-0.03 [facility] Comment on above: Performed By: #### C BC #### [facility] [address] [place] [address] Dr. Madhuri Justice IG % 0.1 % Normal 0.0-0.5 [facility] Comment on above: Performed By: #### C BC #### [facility] [address] [place] [address] Dr. Madhuri Justice LYMPH # 0.9 103/ul Critically low 1.2-3.8 [facility] Comment on above: Performed By: #### C BC #### [facility] [address] [place] [address] Dr. Madhuri Justice Lymphocytes/100 WBC (Bld) 12.2 % Critically low 20.5-60.0 [facility] Comment on above: Performed By: #### C BC #### [facility] [address] [place] [address] Dr. Madhuri Justice MANUAL DIFF REQ NO Normal [facility] Comment on above: Performed By: #### C BC #### [facility] [address] [place] [address] Dr. Madhuri Justice MCH (RBC) [Entitic mass] 24.7 pg Critically low 26.7-34.0 [facility] Comment on above: Performed By: #### C BC #### [facility] [address] [place] [address] Dr. Madhuri Justice MCHC (RBC) [Mass/Vol] 29.7 g/dL Critically low 29.9-35.2 [facility] Comment on above: Performed By: #### C BC #### [facility] [address] [place] [address] Dr. Madhuri Justice MCV (RBC) [Entitic vol] 83.0 fL Normal 81.0-99.0 [facility] Comment on above: Performed By: #### C BC #### [facility] [address] [place] [address] Dr. Madhuri Justice MONO # 0.6 103/ul Normal 0.3-0.8 [facility] Comment on above: Performed By: #### C BC #### [facility] [address] [place] [address] Dr. Madhuri Justice Monocytes/100 WBC (Bld) 7.7 % Normal 1.7-12.0 [facility] Comment on above: Performed By: #### C BC #### [facility] [address] [place] [address] Dr. Madhuri Justice NEUT # 5.7 103/ul Normal 1.4-6.5 [facility] Comment on above: Performed By: #### C BC #### [facility] [address] [place] [address] Dr. Madhuri Justice Neutrophils/100 WBC (Bld) 78.6 % Critically high 43.0-75.0 [facility] Comment on above: Performed By: #### C BC #### [facility] [address] [place] [address] Dr. Madhuri Justice Platelet mean volume (Bld) [Entitic vol] 10.4 fL Normal 9.5-13.5 [facility] Comment on above: Performed By: #### C BC #### [facility] [address] [place] [address] Dr. Madhuri Justice PLT 290 103/ul Normal 150-450 [facility] Comment on above: Performed By: #### C BC #### [facility] [address] [place] [address] Dr. Madhuri Justice RBC 4.54 106/ul Normal 4.20-5.40 [facility] Comment on above: Performed By: #### C BC #### [facility] [address] [place] [address] Dr. Madhuri Justice WBC 7.2 103/ul Normal 4.0-11.0 [facility] Comment on above: Performed By: #### C BC #### [facility] [address] [place] [address] Dr. Madhuri Justice ER URINE PROFILEon 2 Bilirubin Ql (U) Negative Normal NEGATIVE [facility] Comment on above: Performed By: #### E RUR #### [facility] [address] [place] [address] Dr. Madhuri Justice Clarity (U) CLEAR Normal CLEAR [facility] Comment on above: Performed By: #### E RUR #### [facility] [address] [place] [address] Dr. Madhuri Justice Color (U) YELLOW Normal YELLOW [facility] Comment on above: Performed By: #### E RUR #### [facility] [address] [place] [address] Dr. Madhuri Justice ERUAHD A micrscopic examina tion will be performed if indicated. Normal [facility] Comment on above: Performed By: #### E RUR #### [facility] [address] [place] [address] Dr. Madhuri Justice Glucose Ql (U) Negative Normal NEGATIVE [facility] Comment on above: Performed By: #### E RUR #### [facility] [address] [place] [address] Dr. Madhuri Justice Hemoglobin Ql (U) Negative Normal NEGATIVE [facility] Comment on above: Performed By: #### E RUR #### [facility] [address] [place] [address] Dr. Madhuri Justice Ketones Ql (U) Negative Normal NEGATIVE [facility] Comment on above: Performed By: #### E RUR #### [facility] [address] [place] [address] Dr. Madhuri Justice LEUKOCYTES Negative Normal NEGATIVE [facility] Comment on above: Performed By: #### E RUR #### [facility] [address] [place] [address] Dr. Madhuri Justice Nitrite Ql (U) Negative Normal NEGATIVE [facility] Comment on above: Performed By: #### E RUR #### [facility] [address] [place] [address] Dr. Madhuri Justice pH (U) 6.0 [pH] Normal 5-9 [facility] Comment on above: Performed By: #### E RUR #### [facility] [address] [place] [address] Dr. Madhuri Justice SPEC GRAVITY 1.020 Normal 1.005-<=1. 025 [facility] Comment on above: Performed By: #### E RUR #### [facility] [address] [place] [address] Dr. Madhuri Justice UA PROTEIN Negative Normal NEGATIVE/ TRACE [facility] Comment on above: Performed By: #### E RUR #### [facility] [address] [place] [address] Dr. Madhuri Justice UR MICRO IND NOT INDICATED Normal [facility] Comment on above: Performed By: #### E RUR #### [facility] [address] [place] [address] Dr. Madhuri Justice Urobilinogen Qn (U) 0.2 {Bud'U}/dL Normal 0.2 - 1. 0 [facility] Comment on above: Performed By: #### E RUR #### [facility] [address] [address] [address] Madhuri Justice PROF 14(COMP METB)on 022 Albumin [Mass/Vol] 3.3 g/dL Critically low 3.4-5.0 [facility] Comment on above: Performed By: #### L ACT #### [facility] [address] [place] [address] Dr. Madhuri Justice Albumin/Globulin [Mass ratio] 0.8 {ratio} Normal [facility] Comment on above: Performed By: #### L ACT #### [facility] [address] [place] [address] Dr. Madhuri Justice ALP [Catalytic activity/Vol] 114 U/L Normal 46-116 [facility] Comment on above: Performed By: #### L ACT #### [facility] [address] [place] [address] Dr. Madhuri Justice ALT [Catalytic activity/Vol] 11 U/L Critically low 14-59 [facility] Comment on above: Performed By: #### L ACT #### [facility] [address] [place] [address] Dr. Madhuri Justice Anion gap [Moles/Vol] 10.6 mmol/L Normal [facility] Comment on above: Performed By: #### L ACT #### [facility] [address] [place] [address] Dr. Madhuri Justice AST [Catalytic activity/Vol] 13 U/L Critically low 15-37 [facility] Comment on above: Performed By: #### L ACT #### [facility] [address] [place] [address] Dr. Madhuri Justice Bilirubin [Mass/Vol] 0.5 mg/dL Normal 0.2-1.3 [facility] Comment on above: Performed By: #### L ACT #### [facility] [address] [place] [address] Dr. Madhuri Justice Calcium [Mass/Vol] 8.9 mg/dL Normal 8.5-10.1 [facility] Comment on above: Performed By: #### L ACT #### [facility] [address] [address] [address] Madhuri Justice Chloride [Moles/Vol] 103 mmol/L Normal 98-107 [facility] Comment on above: Performed By: #### L ACT #### [facility] [address] [address] [address] Madhuri Justice CO2 [Moles/Vol] 28.2 mmol/L Normal 22.0-30.0 [facility] Comment on above: Performed By: #### L ACT #### [facility] [address] [address] [address] Madhuri Justice Creatinine [Mass/Vol] 0.93 mg/dL Normal 0.52-1.04 [facility] Comment on above: Performed By: #### L ACT #### [facility] [address] [address] [address] Madhuri Justice EGFR-AF MONTENEGRIN >60 Normal >=60 [facility] Comment on above: Performed By: #### L ACT #### [facility] [address] [address] [address] Madhuri Justice EGFR-NON AF MONTENEGRIN 58 mL/min/1.73m2 Critically low >=60 [facility] Comment on above: Performed By: #### L ACT #### [facility] [address] [place] [address] Dr. Madhuri Justice Globulin (S) [Mass/Vol] 4.0 g/dL Normal [facility] Comment on above: Performed By: #### L ACT #### [facility] [address] [address] [address] Madhuri Justice Glucose [Mass/Vol] 121 mg/dL Critically high 74-106 [facility] Comment on above: Performed By: #### L ACT #### [facility] [address] [address] [address] Madhuri Justice Potassium [Moles/Vol] 3.8 mmol/L Normal 3.4-5.0 [facility] Comment on above: Performed By: #### L ACT #### [facility] [address] [address] [address] Madhuri Justice Protein [Mass/Vol] 7.3 g/dL Normal 6.1-8.2 [facility] Comment on above: Performed By: #### L ACT #### [facility] [address] [address] [address] Madhuri Justice Sodium [Moles/Vol] 138 mmol/L Normal 137-145 [facility] Comment on above: Performed By: #### L ACT #### [facility] [address] [address] [address] Madhuri Justice Urea nitrogen [Mass/Vol] 14.0 mg/dL Normal 7.0-18.0 [facility] Comment on above: Performed By: #### L ACT #### [facility] [address] [place] [address] Dr. Madhuri Justice Urea nitrogen/Creatinine [Mass ratio] 15.1 mg/mg Normal [facility] Comment on above: Performed By: #### L ACT #### [facility] [address] [place] [address] Dr. Madhuri Justice AMYLASEon 10-26-2021 Amylase [Catalytic activity/Vol] 35 U/L Normal 31-110 [facility] Comment on above: Performed By: #### L ACT #### [facility] [address] [place] [address] Dr. Madhuri Justice CBC W MANUAL DIFFon 10-26-19 22 ANISOCYTOSIS SLIGHT Normal [facility] Comment on above: Performed By: #### C BCMAN #### [facility] [address] [place] [address] Dr. Madhuri Justice ATYPICAL LYMPH # Normal [facility] Comment on above: Performed By: #### C BCMAN #### [facility] [address] [place] [address] Dr. Madhuri Justice ATYPICAL LYMPH % Normal [facility] Comment on above: Performed By: #### C BCMAN #### [facility] [address] [place] [address] Dr. Madhuri Justice BAND # 0.2 103/ul Normal 0.0-0.3 [facility] Comment on above: Performed By: #### C BCILIANA #### [facility] [address] [place] [address] Dr. Madhuri Justice BAND % 2 % Normal 0-5 [facility] Comment on above: Performed By: #### C DANNY #### [facility] [address] [place] [address] Dr. Madhuri Justice BASOM # 0.00 103/ul Normal 0.00-0.10 [facility] Comment on above: Performed By: #### C DANNY #### [facility] [address] [place] [address] Dr. Madhuri Justice BASOM % 0.0 % Critically low 0.2-2.0 [facility] Comment on above: Performed By: #### C DANNY #### [facility] [address] [place] [address] Dr. Madhuri Justice BLAST # Normal [facility] Comment on above: Performed By: #### C DANNY #### [facility] [address] [place] [address] Dr. Madhuri Justice BLAST % Normal [facility] Comment on above: Performed By: #### C DANNY #### [facility] [address] [place] [address] Dr. Madhuri Justice CORRECTED WBC Normal 4.0-11.0 [facility] Comment on above: Performed By: #### C DANNY #### [facility] [address] [place] [address] Dr. Madhuri Justice EOS # 0.09 103/ul Normal 0.00-0.70 [facility] Comment on above: Performed By: #### C BCILIANA #### [facility] [address] [place] [address] Dr. Madhuri Justice EOS% 1.0 % Normal 0.9-7.0 [facility] Comment on above: Performed By: #### C DANNY #### [facility] [address] [place] [address] Dr. Madhuri Justice HCT 37.3 % Normal 36.0-48.0 [facility] Comment on above: Performed By: #### C BCILIANA #### [facility] [address] [address] [address] Madhuri Justice HGB 11.0 g/dl Critically low 12.0-16.0 [facility] Comment on above: Performed By: #### C BCILIANA #### [facility] [address] [address] [address] Madhuri Justice HYPOCHROMASIA SLIGHT Normal [facility] Comment on above: Performed By: #### C BCMAN #### [facility] [address] [address] [address] Madhuri Justice LYMPHM # 0.86 103/ul Critically low 1.20-3.80 [facility] Comment on above: Performed By: #### C BCILIANA #### [facility] [address] [place] [address] Dr. Madhuri Justice LYMPHM% 10.0 % Critically low 20.5-60.0 [facility] Comment on above: Performed By: #### C BCILIANA #### [facility] [address] [place] [address] Dr. Madhuri Justice MCH 23.9 pg Critically low 26.7-34.0 [facility] Comment on above: Performed By: #### C BCILIANA #### [facility] [address] [place] [address] Dr. Madhuri Justice MCHC 29.5 g/dl Critically low 29.9-35.2 [facility] Comment on above: Performed By: #### C BCILIANA #### [facility] [address] [place] [address] Dr. Madhuri Justice MCV 81.1 fL Normal 81.0-99.0 [facility] Comment on above: Performed By: #### C BCMAN #### [facility] [address] [place] [address] Dr. Madhuri Justice METAMYELOCYTE # Normal [facility] Comment on above: Performed By: #### C DANNY #### [facility] [address] [place] [address] Dr. Madhuri Justice METAMYELOCYTE % Normal [facility] Comment on above: Performed By: #### C BCMAN #### [facility] [address] [address] [address] Madhuri Justice MONOM# 0.52 103/ul Normal 0.30-0.80 [facility] Comment on above: Performed By: #### C BCMAN #### [facility] [address] [place] [address] Dr. Madhuri Justice MONOM% 6.0 % Normal 1.7-12.0 [facility] Comment on above: Performed By: #### C BCMAN #### [facility] [address] [place] [address] Dr. Madhuri Justice MPV 9.8 fL Normal 9.5-13.5 [facility] Comment on above: Performed By: #### C BCMAN #### [facility] [address] [place] [address] Dr. Madhuri Justice MYELOCYTE # Normal [facility] Comment on above: Performed By: #### C BCMAN #### [facility] [address] [place] [address] Dr. Madhuri Justice MYELOCYTE % Normal [facility] Comment on above: Performed By: #### C BCMAN #### [facility] [address] [place] [address] Dr. Madhuri Justice NRBC Normal [facility] Comment on above: Performed By: #### C BCILIANA #### [facility] [address] [place] [address] Dr. Madhuri Justice PLT 318 103/ul Normal 150-450 [facility] Comment on above: Performed By: #### C BCMAN #### [facility] [address] [place] [address] Dr. Madhuri Justice RBC 4.60 106/ul Normal 4.20-5.40 [facility] Comment on above: Performed By: #### C BCMAN #### [facility] [address] [place] [address] Dr. Madhuri Justice RDW 16.4 % Critically high 11.0-15.0 [facility] Comment on above: Performed By: #### C BCMAN #### [facility] [address] [place], [place] [address] Dr. Madhuri Justice SEG # 6.97 103/ul Critically high 1.40-6.50 [facility] Comment on above: Performed By: #### C VIRGILMAN #### [facility] [address] [place], [place] [address] Dr. Madhuri Justice SEG % 81.0 % Critically high 43.0-75.0 [facility] Comment on above: Performed By: #### C VIRGILMAN #### [facility] [address] [place], [place] [address] Dr. Madhuri Justice WBC 8.6 103/ul Normal 4.0-11.0 [facility] Comment on above: Performed By: #### C VIRGILMAN #### [facility] [address] [place], [place] [address] ABD/PELV W CONon [...] by: CLEMENTINA ALEXIS Date: 2021-10-26 18:59 Normal [facility] LACTATE/LACTIC ACIDon 2021 Lactate [Moles/Vol] 0.6 mmol/L Critically low 0.7-2.0 [facility] Comment on above: Performed By: #### L ACT #### [facility] [address] [place] [address] Dr. Madhuri Justice LIPASEon 10-26-2021 Lipase [Catalytic activity/Vol] 70.0 U/L Normal 23.0-300.0 [facility] Comment on above: Performed By: #### L ACT #### [facility] [address] [place] [address] Dr. Madhuri Justice PROF 14(COMP METB)on 022 Albumin [Mass/Vol] 3.5 g/dL Normal 3.5-5.0 [facility] Comment on above: Performed By: #### L ACT #### [facility] [address] [place] [address] Dr. Madhuri Justice Albumin/Globulin [Mass ratio] 0.9 {ratio} Normal [facility] Comment on above: Performed By: #### L ACT #### [facility] [address] [place] [address] Dr. Madhuri Justice ALP [Catalytic activity/Vol] 119 U/L Normal 38-126 [facility] Comment on above: Performed By: #### L ACT #### [facility] [address] [place] [address] Dr. Madhuri Justice ALT [Catalytic activity/Vol] 13 U/L Normal 9-52 [facility] Comment on above: Performed By: #### L ACT #### [facility] [address] [place] [address] Dr. Madhuri Justice Anion gap [Moles/Vol] 10.7 mmol/L Normal [facility] Comment on above: Performed By: #### L ACT #### [facility] [address] [address] [address] Madhuri Justice AST [Catalytic activity/Vol] 15 U/L Normal 14-36 [facility] Comment on above: Performed By: #### L ACT #### [facility] [address] [address] [address] Madhuri Justice Bilirubin [Mass/Vol] 0.5 mg/dL Normal 0.2-1.3 [facility] Comment on above: Performed By: #### L ACT #### [facility] [address] [address] [address] Madhuri Justice Calcium [Mass/Vol] 9.5 mg/dL Normal 8.4-10.2 [facility] Comment on above: Performed By: #### L ACT #### [facility] [address] [address] [address] Madhuri Justice Chloride [Moles/Vol] 104 mmol/L Normal 98-107 [facility] Comment on above: Performed By: #### L ACT #### [facility] [address] [address] [address] Madhuri Justice CO2 [Moles/Vol] 28.0 mmol/L Normal 22.0-30.0 [facility] Comment on above: Performed By: #### L ACT #### [facility] [address] [address] [address] Madhuri Justice Creatinine [Mass/Vol] 0.85 mg/dL Normal 0.52-1.04 [facility] Comment on above: Performed By: #### L ACT #### [facility] [address] [address] [address] Madhuri Justice EGFR-AF MONTENEGRIN >60 Normal >=60 [facility] Comment on above: Performed By: #### L ACT #### [facility] [address] [address] [address] Madhuri Justice EGFR-NON AF MONTENEGRIN >60 Normal >=60 [facility] Comment on above: Performed By: #### L ACT #### [facility] [address] [address] [address] Madhuri Justice Globulin (S) [Mass/Vol] 4.1 g/dL Normal [facility] Comment on above: Performed By: #### L ACT #### [facility] [address] [address] [address] Madhuri Justice Glucose [Mass/Vol] 116 mg/dL Critically high 74-106 [facility] Comment on above: Performed By: #### L ACT #### [facility] [address] [address] [address] Madhuri Justice Potassium [Moles/Vol] 3.7 mmol/L Normal 3.4-5.0 [facility] Comment on above: Performed By: #### L ACT #### [facility] [address] [address] [address] Madhuri Justice Protein [Mass/Vol] 7.6 g/dL Normal 6.1-8.2 [facility] Comment on above: Performed By: #### L ACT #### [facility] [address] [place] [address] Dr. Madhuri Justice Sodium [Moles/Vol] 139 mmol/L Normal 137-145 [facility] Comment on above: Performed By: #### L ACT #### [facility] [address] [address] [address] Madhuri Justice Urea nitrogen [Mass/Vol] 16.0 mg/dL Normal 7.0-17.0 [facility] Comment on above: Performed By: #### L ACT #### [facility] [address] [place] [address] Dr. Madhuri Justice Urea nitrogen/Creatinine [Mass ratio] 18.8 mg/mg Normal [facility] Comment on above: Performed By: #### L ACT #### [facility] [id number] Madhuri Justice CBCon 02-08-2020 Erythrocyte distribution width (RBC) [Ratio] 16.9 % High 11.5 - 14.5 [facility] Comment on above: Performed By: #### C BC #### [address] [address] Hematocrit (Bld) [Volume fraction] 40.7 % Normal 36.0 - 46.0 [facility] Comment on above: Performed By: #### C BC #### [address] [address] Hemoglobin (Bld) [Mass/Vol] 11.8 g/dL Low 12.0 - 16.0 [facility] Comment on above: Performed By: #### C BC #### [address] [address] MCHC (RBC) [Mass/Vol] 29.0 g/dL Low 32.0 - 36.0 [facility] Comment on above: Performed By: #### C BC #### [address] [address] MCV (RBC) [Entitic vol] 81 fL Normal 80 - 100 [facility] Comment on above: Performed By: #### C BC #### [address] [address] Platelets (Bld) [#/Vol] 296 10*3/uL Normal 150 - 450 [facility] Comment on above: Performed By: #### C BC #### [address] [address] RBC (Bld) [#/Vol] 5.01 x10E12/L Normal 4.00 - 5.20 [facility] Comment on above: Performed By: #### C BC #### [address] [address] WBC (Bld) [#/Vol] 7.0 10*3/uL Normal 4.4 - 11.3 [facility] Comment on above: Performed By: #### C BC #### [address] [address] CREATININEon 02-08-2020 Creatinine [Mass/Vol] mg/dL Normal >60 [facility] Comment on above: Result Comment: CALC ULATIONS OF ESTIMATED GFR ARE PERFORMED USING THE MDRD STUDY EQUATION FOR THE IDMS-TRACEABLE CREATININE METHODS. CLIN CHEM 2007;53:766-72 Performed By: #### C REAT #### [address] [address] Creatinine [Mass/Vol] 0.85 mg/dL Normal 0.50 - 1.05 [facility] Comment on above: Performed By: #### C REAT #### [address] [address] ELECTROLYTE PANELon 02-08-20 20 Anion gap [Moles/Vol] 12 mmol/L Normal 10 - 20 [facility] Comment on above: Performed By: #### E LECT #### [address] [address] Chloride [Moles/Vol] 104 mmol/L Normal 98 - 107 [facility] Comment on above: Performed By: #### E LECT #### [address] [address] HCO3 (Bld) [Moles/Vol] 29 mmol/L Normal 21 - 32 [facility] Comment on above: Performed By: #### E LECT #### [address] [address] Potassium [Moles/Vol] 3.9 mmol/L Normal 3.5 - 5.3 [facility] Comment on above: Performed By: #### E LECT #### [address] [address] Sodium [Moles/Vol] 141 mmol/L Normal 136 - 145 [facility] Comment on above: Performed By: #### E LECT #### [address] [address] UREA NITROGENon 02-08-2020 Urea nitrogen [Mass/Vol] 18 mg/dL Normal 6 - 23 [facility] Comment on above: Performed By: #### U GUSTAVO #### [address] [address] Creatinineon 11-24-2018 Creatinine mass conc 0.83 mg/dL Normal 0.50-1.05 [facility] Comment on above: Performed By: #### 1 [id number] #### [facility] [address] [place] [address] GFR/1.73 sq M.predicted MDRD vol rate/area mL/min/{1.73_m2} Normal [facility] Comment on above: Result Comment: Inte rpretation for Chronic Kidney Disease: Stages 1&2 >60 Healthy or potential kidney damage. Mild decrease of GFR. Stage 3 30-59 Moderate decrease of GFR. Stage 4 15-29 Severe decrease of GFR. Stage 5 <15 Kidney failure or on dialysis. Performed By: #### 1 [id number] #### [facility] [address] [place] [address] Electrolyte Panelon 11-24-19 19 Anion gap molar conc 13 mmol/L Normal 10-20 [facility] Comment on above: Performed By: #### 1 [id number] #### [facility] [address] [place] [address] Chloride molar conc 102 mmol/L Normal 98-107 [facility] Comment on above: Performed By: #### 1 [id number] #### [facility] [address] [place] [address] HCO3 molar conc (Bld) 28 mmol/L Normal 21-32 [facility] Comment on above: Performed By: #### 1 [id number] #### [facility] [address] [place] [address] Potassium molar conc 4.0 mmol/L Normal 3.5-5.1 [facility] Comment on above: Performed By: #### 1 [id number] #### [facility] [address] [place] [address] Sodium molar conc 139 mmol/L Normal 136-145 [facility] Comment on above: Performed By: #### 1 [id number] #### [facility] [address] [place] [address] Urea Nitrogenon 11-24-2018 Urea nitrogen mass conc 17 mg/dL Normal 6-23 [facility] Comment on above: Performed By: #### 1 [id number] #### [facility] [address] [place] [address] Creatinineon 11-18-2018 Creatinine mass conc 0.84 mg/dL Normal 0.50-1.05 [facility] Comment on above: Performed By: #### 1 [id number] #### [facility] [address] [place] [address] GFR/1.73 sq M.predicted MDRD vol rate/area mL/min/{1.73_m2} Normal [facility] Comment on above: Result Comment: Inte rpretation for Chronic Kidney Disease: Stages 1&2 >60 Healthy or potential kidney damage. Mild decrease of GFR. Stage 3 30-59 Moderate decrease of GFR. Stage 4 15-29 Severe decrease of GFR. Stage 5 <15 Kidney failure or on dialysis. Performed By: #### 1 [id number] #### [facility] [address] [place] [address] Electrolyte Panelon 11-18-19 19 Anion gap molar conc 10 mmol/L Normal 10-20 [facility] Comment on above: Performed By: #### 1 [id number] #### [facility] [address] [place] [address] Chloride molar conc 104 mmol/L Normal 98-107 [facility] Comment on above: Performed By: #### 1 [id number] #### [facility] [address] [place] [address]99 HCO3 molar conc (Bld) 30 mmol/L Normal 21-32 [facility] Comment on above: Performed By: #### 1 [id number] #### [facility] [address] [place] [address] Potassium molar conc 4.0 mmol/L Normal 3.5-5.1 [facility] Comment on above: Performed By: #### 1 [id number] #### [facility] [address] [place] [address] Sodium molar conc 140 mmol/L Normal 136-145 [facility] Comment on above: Performed By: #### 1 [id number] #### [facility] [address] [place] [address] Urea Nitrogenon 11-18-2018 Urea nitrogen mass conc 15 mg/dL Normal 6-23 [facility] Comment on above: Performed By: #### 1 [id number] #### [facility] [address] [place] [address] CBCon 2018 Erythrocyte distribution width Ratio (RBC) 16.3 % High 12.0-15.4 [facility] Comment on above: Performed By: #### 2 [id number] #### [facility] [address] [place] [address] Hematocrit Volume Fraction (Bld) 37.4 % Normal 36.5-46.6 [facility] Comment on above: Performed By: #### 2 [id number] #### [facility] [address] [place] [address] Hemoglobin mass conc (Bld) 11.0 g/dL Low 11.8-15.3 [facility] Comment on above: Performed By: #### 2 [id number] #### [facility] [address] [place] [address] MCH Entitic mass (RBC) 24.3 pg Low 27.5-33.0 [facility] Comment on above: Performed By: #### 2 [id number] #### [facility] [address] [place] [address] MCHC mass conc (RBC) 29.4 g/dL Low 30.1-35.0 [facility] Comment on above: Performed By: #### 2 [id number] #### [facility] [address] [place] [address] MCV Entitic volume (RBC) 82.6 fL Low 85.4-100.0 [facility] Comment on above: Performed By: #### 2 [id number] #### [facility] [address] [place] [address] NRBC Absolute 0.00 10*3/uL Normal [facility] Comment on above: Performed By: #### 2 [id number] #### [facility] [address] [place] [address] NRBC Automated 0.0 /100{WBCs} Normal [facility] Comment on above: Performed By: #### 2 [id number] #### [facility] [address] [place] [address] Platelet mean volume Entitic volume (Bld) 10.8 fL Normal 9.9-12.1 [facility] Comment on above: Performed By: #### 2 [id number] #### [facility] [address] [place] [address] Platelets #/vol (Bld) 314 10*3/uL Normal 155-404 [facility] Comment on above: Performed By: #### 2 [id number] #### [facility] [address] [place] [address] RBC #/vol (Bld) 4.53 10*6/uL Normal 3.85-5.10 [facility] Comment on above: Performed By: #### 2 [id number] #### [facility] [address] [place] [address] RDW SD 49.1 fL High 39.3-48.6 [facility] Comment on above: Performed By: #### 2 [id number] #### [facility] [address] [place] [address] WBC #/vol (Bld) 7.9 10*3/uL Normal 4.4-9.9 [facility] Comment on above: Performed By: #### 2 [id number] #### [facility] [address] [place] [address] Creatinineon 2018 Creatinine mass conc 0.85 mg/dL Normal 0.50-1.05 [facility] Comment on above: Performed By: #### 1 [id number] #### [facility] [address] [place] [address]184 GFR/1.73 sq M.predicted MDRD vol rate/area mL/min/{1.73_m2} Normal [facility] Comment on above: Result Comment: Inte rpretation for Chronic Kidney Disease: Stages 1&2 >60 Healthy or potential kidney damage. Mild decrease of GFR. Stage 3 30-59 Moderate decrease of GFR. Stage 4 15-29 Severe decrease of GFR. Stage 5 <15 Kidney failure or on dialysis. Performed By: #### 1 [id number] #### [facility] [address] [place] [address] Electrolyte Panelon 05-25-20 18 Anion gap molar conc 13 mmol/L Normal 10-20 [facility] Comment on above: Performed By: #### 1 [id number] #### [facility] [address] [place] [address] Chloride molar conc 102 mmol/L Normal 98-107 [facility] Comment on above: Performed By: #### 1 [id number] #### [facility] [address] [place] [address] HCO3 molar conc (Bld) 28 mmol/L Normal 21-32 [facility] Comment on above: Performed By: #### 1 [id number] #### [facility] [address] [place] [address] Potassium molar conc 3.9 mmol/L Normal 3.5-5.1 [facility] Comment on above: Performed By: #### 1 [id number] #### [facility] [address] [place] [address] Sodium molar conc 139 mmol/L Normal 136-145 [facility] Comment on above: Performed By: #### 1 [id number] #### [facility] [address] [place] [address] Urea Nitrogenon 2018 Urea nitrogen mass conc 15 mg/dL Normal 6-23 [facility] Comment on above: Performed By: #### 1 [id number] #### [facility] [address] [place] [address] Vital Signs Date Time Vital Sign Value Performing Clinician Facility 09-18-2023 10:31-0500 Body height 160 cm Charmaine Tilley MD Work Phone: [facility] 09-18-2023 10:31-0500 Body mass index (BMI) [Ratio] 36.31 kg/m2 Charmaine Tilley MD Work Phone: [facility] 09-18-2023 10:31-0500 Body weight 92.99 kg Charmaine Tilley MD Work Phone: [facility] 09-18-2023 10:31-0500 Diastolic blood pressure 72 mm[Hg] Charmaine Tilley MD Work Phone: [facility] 09-18-2023 10:31-0500 Heart rate 70 /min Charmaine Tilley MD Work Phone: [facility] 09-18-2023 10:31-0500 Systolic blood pressure 122 mm[Hg] Charmaine Tilley MD Work Phone: [facility] 09-01-2023 10:54-0500 Diastolic blood pressure 65 mm[Hg] DO Raghav Stephen Work Phone: [facility] 09-01-2023 10:54-0500 Heart rate 65 /min DO Raghav Stephen Work Phone: [facility] 09-01-2023 10:54-0500 Respiratory rate 18 /min DO Raghav Stephen Work Phone: [facility] 09-01-2023 10:54-0500 SaO2% (BldA) [Mass fraction] 95 % DO Raghav Pineda Work Phone: [facility] 09-01-2023 10:54-0500 Systolic blood pressure 149 mm[Hg] DO Raghav Stephen Work Phone: [facility] 09-01-2023 09:33-0500 Body height 160.02 cm DO Raghav Pineda Work Phone: [facility] 09-01-2023 09:33-0500 Body weight 92 kg DO Raghav Stephen Work Phone: [facility] 09-01-2023 09:31-0500 Body temperature 97.4 [degF] DO Raghav Stephen Work Phone: [facility] 08-18-2023 08:38-0500 Diastolic blood pressure 82 mm[Hg] Charmaine Tilley MD Work Phone: [facility] 08-18-2023 08:38-0500 Systolic blood pressure 138 mm[Hg] Charmaine Tilley MD Work Phone: [facility] 08-18-2023 08:32-0500 Body height 160 cm Charmaine Tilley MD Work Phone: [facility] 08-18-2023 08:32-0500 Body mass index (BMI) [Ratio] 36.31 kg/m2 Charmaine Tilley MD Work Phone: [facility] 08-18-2023 08:32-0500 Body weight 92.99 kg Charmaine Tilley MD Work Phone: [facility] 08-18-2023 08:32-0500 Heart rate 60 /min Charmaine Tilley MD Work Phone: [facility] 07-27-2023 16:00-0400 Diastolic blood pressure 72 mm[Hg] DO Raghav Pineda Work Phone: [facility] 07-27-2023 16:00-0400 Heart rate 77 /min DO Raghav Pineda Work Phone: [facility] 07-27-2023 16:00-0400 Respiratory rate 23 /min DO Raghav Pineda Work Phone: [facility] 07-27-2023 16:00-0400 SaO2% (BldA) [Mass fraction] 97 % DO Raghav Pineda Work Phone: [facility] 07-27-2023 16:00-0400 Systolic blood pressure 160 mm[Hg] DO Raghav Pineda Work Phone: [facility] 07-27-2023 12:05-0400 Body height 160.02 cm DO Raghav Pineda Work Phone: [facility] 07-27-2023 12:05-0400 Body temperature 97.5 [degF] DO Raghav Pineda Work Phone: [facility] 07-27-2023 12:05-0400 Body weight 94.5 kg DO Raghav Pineda Work Phone: [facility] 04-16-2023 10:48-0400 Body height 162.56 cm Raghav Pineda Work Phone: [facility] DO Work Phone: 04-16-2023 10:48-0400 Body mass index (BMI) [Ratio] 34.87 kg/m2 Raghav Pineda Work Phone: [facility] DO Work Phone: 04-16-2023 10:48-0400 Body surface area Derived from formula 1.97 m2 Raghav Pineda Work Phone: [facility] DO Work Phone: 04-16-2023 10:48-0400 Body weight 92.14 kg Raghav Pineda Work Phone: [facility] DO Work Phone: 04-16-2023 10:48-0400 Diastolic blood pressure 78 mm[Hg] Raghav Pineda Work Phone: [facility] DO Work Phone: 04-16-2023 10:48-0400 Heart rate 64 /min Raghav Pineda Work Phone: [facility] DO Work Phone: 04-16-2023 10:48-0400 Systolic blood pressure 138 mm[Hg] Raghav Pineda Work Phone: [facility] DO Work Phone: 03-19-2023 22:00-0400 Diastolic blood pressure 67 mm[Hg] DO Raghav Pineda Work Phone: [facility] 03-19-2023 22:00-0400 Systolic blood pressure 146 mm[Hg] DO Raghav Pineda Work Phone: [facility] 03-19-2023 21:08-0400 Heart rate 63 /min DO Raghav Pineda Work Phone: [facility] 03-19-2023 21:04-0400 Respiratory rate 18 /min DO Raghav Pineda Work Phone: [facility] 03-19-2023 21:04-0400 SaO2% (BldA) [Mass fraction] 98 % DO Raghav Pineda Work Phone: [facility] 03-19-2023 20:10-0400 Body height 162.56 cm DO Raghav Pineda Work Phone: [facility] 03-19-2023 20:10-0400 Body temperature 97.8 [degF] DO Raghav Pineda Work Phone: [facility] 03-19-2023 20:10-0400 Body weight 81.64 kg DO Raghav Pineda Work Phone: [facility] 10-14-2022 12:07-0500 Diastolic blood pressure 68 mm[Hg] Raghav Pineda Work Phone: [facility] DO Work Phone: 10-14-2022 12:07-0500 Systolic blood pressure 128 mm[Hg] Raghav Pineda Work Phone: [facility] DO Work Phone: 10-14-2022 11:53-0500 Body height 162.56 cm Raghav Pineda Work Phone: [facility] DO Work Phone: 10-14-2022 11:53-0500 Body mass index (BMI) [Ratio] 31.93 kg/m2 Raghav Pineda Work Phone: [facility] DO Work Phone: 10-14-2022 11:53-0500 Body surface area Derived from formula 1.9 m2 Raghav Pineda Work Phone: [facility] DO Work Phone: 10-14-2022 11:53-0500 Body weight 84.37 kg Raghav Pineda Work Phone: [facility] DO Work Phone: 10-14-2022 11:53-0500 Diastolic blood pressure 72 mm[Hg] Raghav Irvin Stephen Work Phone: [facility] DO Work Phone: 10-14-2022 11:53-0500 Heart rate 65 /min Raghav Bryan Stephen Work Phone: [facility] DO Work Phone: 10-14-2022 11:53-0500 Systolic blood pressure 144 mm[Hg] Raghav Pineda Work Phone: [facility] DO Work Phone: 07-24-2022 15:30-0400 Body height 165.1 cm Isrrael Markus Other [facility] [employer] Other 07-24-2022 15:30-0400 Body mass index (BMI) [Ratio] 28.29 kg/m2 Isrrael Aparicio Other [facility] [employer] Other 07-24-2022 15:30-0400 Body weight 77.11 kg Isrrael Barnettormack Other [facility] [employer] Other 06-06-2022 09:47-0400 Diastolic blood pressure 66 mm[Hg] DO Raghav Pineda Work Phone: [facility] 06-06-2022 09:47-0400 Heart rate 71 /min DO Raghav Stephen Work Phone: [facility] 06-06-2022 09:47-0400 Respiratory rate 20 /min DO Raghav Pineda Work Phone: [facility] 06-06-2022 09:47-0400 SaO2% (BldA) [Mass fraction] 97 % DO Raghav Stephen Work Phone: [facility] 06-06-2022 09:47-0400 Systolic blood pressure 145 mm[Hg] DO Raghav Pineda Work Phone: [facility] 06-06-2022 05:51-0400 Body height 162.56 cm DO Raghav Pineda Work Phone: [facility] 06-06-2022 05:51-0400 Body temperature 97.7 [degF] DO Raghav Pineda Work Phone: [facility] 06-06-2022 05:51-0400 Body weight 170 kg DO Raghav Pineda Work Phone: [facility] 03-04-2022 15:49-0400 Body height 162.56 cm Raghav Pineda Work Phone: [facility] DO Work Phone: 03-04-2022 15:49-0400 Body mass index (BMI) [Ratio] 31.58 kg/m2 Raghav Pineda Work Phone: [facility] DO Work Phone: 03-04-2022 15:49-0400 Body surface area Derived from formula 1.89 m2 Raghav Pineda Work Phone: [facility] DO Work Phone: 03-04-2022 15:49-0400 Body weight 83.46 kg Raghav Pineda Work Phone: [facility] DO Work Phone: 03-04-2022 15:49-0400 Diastolic blood pressure 62 mm[Hg] Raghav Pineda Work Phone: [facility] DO Work Phone: 03-04-2022 15:49-0400 Heart rate 69 /min Raghav Pineda Work Phone: [facility] DO Work Phone: 03-04-2022 15:49-0400 Systolic blood pressure 112 mm[Hg] Raghav Pineda Work Phone: -[facility] DO Work Phone: Encounters Encounter Date Encounter Type Care Provider Facility Start: 04-13-2024 End: 04-13-2024 ambulatory [facility] Ambulatory Start: 02-01-2024 End: 02-01-2024 ambulatory RAGHAV PINEDA Not Available Start: 01-26-2024 End: 01-27-2024 ambulatory PRISCA jackson Start: 01-20-2024 End: 01-20-2024 ambulatory ADALI WOODS Not Available Start: 12-09-2023 End: 12-09-2023 ambulatory SUSAN MCMAHAN Not Available Start: 12-01-2023 End: 12-01-2023 ambulatory LULI BACON Not Available Start: 11-05-2023 End: 11-05-2023 ambulatory ELTON OSCAR Not Available Start: 10-21-2023 End: 10-21-2023 ambulatory ADALI WOODS Not Available Start: 09-18-2023 End: 09-18-2023 ambulatory [facility] Ambulatory Start: 09-18-2023 End: 09-18-2023 Office outpatient visit 25 minutes Charmaine Tilley MD Work Phone: [facility] Comment on above: Paroxysmal atrial fi brillation (CMS/HCC) (Primary Dx); Essential hypertension, benign; Never smoked any substance; High risk medication use; Class II obesity; Premature atrial contractions Start: 09-01-2023 End: 09-01-2023 Emergency department patient visit Natalie Brian Facility:[facility] Start: 09-01-2023 End: 09-01-2023 Emergency department patient visit DO Raghav Pineda Work Phone: [facility] Work Phone: Start: 08-24-2023 End: 08-24-2023 ambulatory RAGHAV PINEDA Not Available Start: 08-18-2023 End: 08-18-2023 Office outpatient visit 10 minutes Charmaine Tilley MD Work Phone: [facility] Comment on above: Essential hypertensi on, benign Start: 08-18-2023 End: 08-18-2023 ambulatory CHARMAINE Akbar [facility] Ambulatory Start: 07-27-2023 End: 07-27-2023 Emergency department patient visit Natalie Roc Facility:[facility] Start: 07-27-2023 End: 07-27-2023 Emergency department patient visit DO Raghav Pineda Work Phone: [facility] Work Phone: Start: 07-23-2023 End: 07-23-2023 ambulatory [facility] Ambulatory Start: 07-10-2023 End: 07-10-2023 ambulatory [facility] Ambulatory Start: 04-16-[address] Charmaine walker Tilley Facility: Start: 04-16-2023 Office outpatient visit 25 minutes Raghav Pineda Work Phone: -[facility] DO Work Phone: Start: 04-02-2023 Rx Renewal Raghav Pineda Work Phone: [facility] DO Work Phone: Start: 03-19-2023 End: 03-20-2023 Emergency department patient visit Gonzalo Smith Jr Facility:[facility] Start: 03-19-2023 End: 03-19-2023 Emergency department patient visit DO Raghav Pineda Work Phone: [facility] Work Phone: Start: 03-19-2023 Rx Renewal Raghav Pineda Work Phone: [facility] DO Work Phone: Start: 03-15-2023 Rx Renewal Raghav Pineda Work Phone: [facility] DO Work Phone: Start: 10-14-2022 Office outpatient visit 25 minutes Raghav Pineda Work Phone: [facility] DO Work Phone: Start: 10-14-[address] Charmaine Tilley Facility: Start: 10-08-2022 Rx Renewal Raghav Pineda Work Phone: [facility] DO Work Phone: Start: 10-04-2022 End: 10-05-[address] DOCTOR HARDY Facility:[facility] Start: 09-29-2022 End: 09-29-[address] RAGHAV PINEDA Facility:[facility] Start: 09-10-2022 Telephone encounter Raghav gomes Work Phone: [facility] DO Work Phone: Start: 09-06-2022 End: 09-06-[address] RAGHAV PINEDA Facility:[facility] Start: 07-24-2022 End: 07-24-2022 ambulatory Isrrael Aparicio Other [facility] Other Start: 07-24-2022 Office outpatient ne w 45 minutes Isrrael Aparicio [facility] Start: 06-06-2022 End: 06-06-2022 Emergency department patient visit DO Raghav Pineda Work Phone: [facility] Start: 03-04-2022 Office outpatient visit 25 minutes Raghav Pineda Work Phone: [facility] DO Work Phone: Start: 01-14-2022 End: 01-14-[address] RAGHAV PINEDA Facility:[facility] Start: 01-10-2022 End: 01-10-2022 ambulatory George Adams Other [facility] Other Start: 01-10-2022 Telephone encounter George Adams [facility] Start: 12-17-2021 AUDIT Raghav Pineda Work Phone: [facility] DO Work Phone: Start: 12-16-2021 End: 12-17-[address] RAGHAV PINEDA Facility:[facility] Start: 10-26-2021 End: 10-26-[address] HIRO TOMPKINS Facility:[facility] Start: 08-20-2021 Telephone encounter Raghav gomes Work Phone: [facility] [place] Work Phone: Start: 11-24-2018 Patient encounter procedure JES KEITH Facility:[id number] Start: 11-18-2018 Patient encounter procedure JES KEITH Facility:[id number] Start: 2018 Patient encounter procedure CHARMAINE TILLEY Facility:[id number] Procedures Date Procedure Procedure Detail Performing Clinician Start: 09-18-2023 ECG 12-LEAD RAGHAV Delaney Start: 09-18-2023 Ecg routine ecg w/le ast 12 lds w/i&r Charmaine Tilley MD Work Phone: Start: 09-01-2023 Plain chest X-ray DO Jamie Pineda Work Phone: Start: 08-18-2023 FOLLOW UP IN CARDIOLOGY RAGHAV PINEDA Start: 07-27-2023 CT of abdomen and pe lvis without contrast DO Raghav Pineda Work Phone: Start: 07-27-2023 Plain chest X-ray DO Jamie Pineda Work Phone: Start: 06-06-2022 CT of abdomen and pe lvis without contrast DO Raghav Pineda Work Phone: Start: 06-06-2022 Plain chest X-ray DO Jamie Pineda Work Phone: Appendectomy Raghav Pineda Work Phone: Cataract surgery Raghav sullivan Work Phone: Cholecystectomy Raghav delaney Work Phone: Colonoscopy Raghav Pineda Work Phone: Hysterectomy Raghav Pineda Work Phone: SARS Antigen (LFIA) DO Raghav Pineda Work Phone: Surgical procedure Raghav santos Work Phone: Plan of Treatment Date Care Activity Detail Author Start: 01-15-2032 DTaP/Tdap/Td Vaccines (3 - Td or Tdap) DTaP/Tdap/Td Vaccines (3 - Td or Tdap) [facility] Start: 04-13-2024 End: 04-13-2024 Patient encounter procedure 04/13/2024 11:10 AM EDT Office Visit [address] [place] [id number] Charmaine Tilley MD [address] [facility] [address], [facility] [address] [place] [address] [facility] Start: 09-29-2023 FUV, Provider: Charmanie Tilley, Status: Pen, Time: 10:40 AM FUV, Provider: Charmaine Tilley, Status: Pen, Time: 10:40 AM [facility] 250 DO Work Phone: Start: 09-29-2023 End: 09-29-2023 Patient encounter procedure 09/29/2023 10:40 AM EST Office Visit [address] [place] [id number] Charmaine Tilley MD [address] [facility] [address], [address] [address] [facility] Start: 05-29-2023 Influenza vaccination Influenza Vaccine (#1) [facility] Start: 04-16-2023 FUV, Provider: Charmaine Tilley, Status: Pen, Time: 10:40 AM FUV, Provider: Charmaine Tilley, Status: Pen, Time: 10:40 AM [facility] DO Work Phone: Start: 03-19-2023 Plain chest X-ray XR chest 2V* [facility] Start: 03-19-2023 XR Chest 2 Views [facility] Start: 10-14-2022 FUV, Provider: Charmaine Tilley, Status: Pen, Time: 11:40 AM FUV, Provider: Charmaine Tilley, Status: Pen, Time: 11:40 AM [facility] DO Work Phone: Start: 09-10-2022 FUV, Provider: Charmaine Tilley, Status: Pen, Time: 10:40 AM FUV, Provider: Charmaine Tilley, Status: Pen, Time: 10:40 AM [facility] DO Work Phone: Start: 03-04-2022 FUV, Provider: Charmaine Tilley, Status: Pen, Time: 3:30 PM FUV, Provider: Charmaine Tilley, Status: Pen, Time: 3:30 PM [facility] DO Work Phone: Start: 11-12-2021 COVID-19 Vaccine (4 - Pfizer series) COVID-19 Vaccine (4 - Pfizer series) [facility] Start: 10-31-2021 FUV, Provider: Charmaine Tilley, Status: Pen, Time: 9:15 AM FUV, Provider: Charmaine Tilley, Status: Pen, Time: 9:15 AM [facility] [place] Work Phone: Start: 09-08-2017 Pneumococcal Vaccine: 65+ Years (2 - PPSV23 or PCV20) Pneumococcal Vaccine: 65+ Years (2 - PPSV23 or PCV20) [facility] Start: 1991 Zoster Vaccines (1 of 2) Zoster Vaccines (1 of 2) [facility] Start: 1958 Diabetes mellitus screening Diabetes Screening [facility] Start: 1941 Lipid panel Lipid Panel [facility] Start: 1941 Medicare Annual Wellness Visit Medicare Annual Wellness Visit (AWV) [facility] Start: 1940 Screening for osteoporosis Bone Density Scan [facility] Patient Education [facility] Work Phone: Patient referral [facility] Work Phone: Immunizations Immunization Date Immunization Notes Care Provider Fa cility 01-14-2022 diphtheria, tetanus toxoids and pertussis vaccine Raghav Pineda Work Phone: [facility] 250 DO Work Phone: 01-14-2022 tetanus toxoid, redu juan pablo diphtheria toxoid, and acellular pertussis vaccine, adsorbed Charmaine Tilley MD Work Phone: [facility] Work Phone: 09-17-2021 Pfizer-BioNTech COVID-19 Vacc 30 MCG/0.3ML Intramuscular Suspension Raghav Pineda Work Phone: [facility] 250 DO Work Phone: 02-04-2021 Pfizer-BioNTech COVID-19 Vacc 30 MCG/0.3ML Intramuscular Suspension Raghav Pineda Work Phone: [place] [address] DO Work Phone: 01-07-2021 Pfizer-BioNTech COVID-19 Vacc 30 MCG/0.3ML Intramuscular Suspension Raghav Pineda Work Phone: [place] [address] DO Work Phone: 09-08-2016 pneumococcal conjuga te vaccine, 13 valent Raghav Pineda Work Phone: [place] [address] DO Work Phone: Payers Date Payer Category Payer Self-pay [id number] 2006 Medicare [id number] 1959 Medicare [id number] 1959 Unknown [id number] 2. 16.840.1.265732.19 1941 Unknown [id number] 2.16.8 40.1.953515.3.579.2.355 1941 Unknown [id number] 2.16.8 40.1.067732.3.579.2.355 1941 Unknown [id number] 2.16.8 40.1.133623.3.579.2.355 1941 Unknown [id number] 2.16.84 0.1.065586.3.579.2.593 1941 Unknown [id number] 2.16.84 0.1.909625.3.579.2.593 1941 Unknown [id number] 2.16.84 0.1.798102.3.579.2.593 1941 Unknown [id number] 2.16.84 0.1.724497.3.579.2.593 1941 Unknown [id number] 2.16.84 0.1.254898.3.579.2.593 1941 Unknown [id number] 2.16.84 0.1.387460.3.579.2.593 1941 Unknown [id number] 2.16. 840.1.024844.3.579.2.356 1941 Unknown [id number] 2.16. 840.1.459382.3.579.2.356 1941 Unknown [id number] 2.16.8 40.1.639755.3.579.2.1286 1941 Unknown [id number] 2.16.84 0.1.980918.3.579.2.1259 1941 Unknown [id number] 2.16.84 0.1.606632.3.579.2.1259 1941 Unknown [id number] 2.16.84 0.1.024201.3.579.2.1259 1941 Unknown [id number] 2.16.84 0.1.382354.3.579.2.1259 1941 Unknown [id number] 2.16.84 0.1.056133.3.579.2.1259 1941 Unknown [id number] 2.16.84 0.1.426442.3.579.2.1259 1941 Unknown [id number] 2.16.84 0.1.785474.3.579.2.1259 1941 Unknown [id number] 2.16.840 .1.648913.3.579.2.1259 1941 Unknown [id number] 2.16.8 40.1.529499.3.579.2.1244 1941 Unknown [id number] 2.16.8 40.1.757315.3.579.2.124 1941 Unknown [id number] 2.16.8 40.1.888827.3.579.2.1244 1941 Unknown [id number] 2.16.8 40.1.921064.3.579.2.1244 1941 Unknown [id number] 2.16.8 40.1.083847.3.579.2.1244 Medicare [id number] Unknown [id number] Unknown Unknown [facility] [id number] Unknown [id number] 2.16.8 40.1.202738.3.579.2.531 Unknown [id number] 2.16.8 40.1.162022.3.579.2.531 Unknown [id number] 2.16.8 40.1.318551.3.579.2.531 Social History Date Type Detail Facility Start: 07-23-2023 End: 09-18-2023 Never a smoker Never a smoker [place] [address] DO Work Phone: Start: 07-23-2023 End: 09-18-2023 Sex Assigned At [facility] [employer] Other Start: 06-06-2022 End: 07-10-2023 Tobacco smoking status LAIS Never smoked tobacco (finding) [facility] Start: 1940 Sex Assigned At Female F [facility] Start: 07-10-2023 Tobacco use and exposure Smokeless tobacco non-user [facility] Work Phone: Start: 1940 Sex Assigned At Not on file [facility] Work Phone: Start: 08-08-2023 End: 09-18-2023 Exposure to SARS-CoV-2 (event) Not sure [facility] Start: 09-18-2023 Alcohol intake Lifetime non-d reagan (finding) [facility] Work Phone: History of Present illness Narrative [...] Scribe Attestation By signing my name below, eRbekah Benz LPN , Scribe attest that this documentation has been prepared under the direction and in the presence of Charmaine Tilley MD. documented in this encounter [facility] Work Phone: Instructions 09-18-2023 Patient Instructions Note [...] of your visit. documented in this encounter [facility] Work Phone: History of Present illness Narrative [...] Up In Cardiology documented in this encounter [facility] Work Phone: Instructions 08-18-2023 Patient Instructions Note Date & Type Note Facility 08-18-2023 Instructions Rose Marie Yadav LPN - 08/18/2023 8:30 AM EST Sep 2023 visit pending. Same meds documented in this encounter [facility] Work Phone: Evaluation note 07-24-2022 Note Date [...] - R19.8) PATIENT DOES USE THE BENEFIBER [facility] Other Evaluation note Note Date & Type Note Facility Evaluation note No Information [employer] Other Evaluation note Note Date & Type Note Facility Evaluation note No assessment information availa [facility] Work Phone: Evaluation note Note Date & Type Note Facility Evaluation note Diagnosis Essential hypertension, benign documented in this encounter [facility] Work Phone: Evaluation note Note Date & Type Note Facility Evaluation note Diagnosis Paroxysmal atrial fibrillation (CMS/HCC)- Primary Atrial fibrillation Essential hypertension, benign Never smoked any substance High risk medication use Class II obesity Premature atrial contractions Supraventricular premature beats documented in this encounter [facility] Work Phone: History general Narrative - Reported Note Date & Type Note Facility History general Narrative - Reported Type Medical History HTN Medical History a.fib Medical History diverticulitis Surgical History hysterectomy Surgical History Gallbladder Surgical History Appendix [facility] Other Summary Purpose Family History No Family [...] getting under control. * Charmaine Tilley MD, [facility] * JESSY DOW is being seen for a 6 month follow-up of. * Patient is in the office for follow-up for the problems noted below. She has done well since her last visit. She has a visit to the emergency department back in May [facility] the recordfrom the visit were reviewed and [...] therapy is recommended * Charmaine Tilley MD, FACC Chief Complaint and Reason for Visit Chief Complaint cp Chief Complaint hypertension Chief Complaint Chest pain Chief Complaint Chest pain palpitations Reason for Referral Specialty Diagnoses / Procedures Referred By Contac t Referred To Contact Diagnoses Paroxysmal atrial fibrillation (CMS/HCC) Procedures ECG 12 Lead Charmaine Tilley MD [address] [facility] [address] [place] [address] Referral ID Status Reason Start Date Expiration Date V isits Requested Visits Authorized [id number] Pending Review 09/18/2023 09/17/2024 1 1 Specialty Diagnoses / Procedures Referred By Contac t Referred To Contact Cardiology Diagnoses Paroxysmal atrial fibrillation (CMS/HCC) Procedures Follow Up In Cardiology Charmaine Tilley MD [address] [facility] [address] [place] [address] Charmaine Tilley MD [address] [facility] [address] [place] [address] Referral ID Status Reason Start Date Expiration Date V isits Requested Visits Authorized [id number] Authorized 09/18/2023 09/17/2024 1 1 Additional Source Comments INFORMATION SOURCE (unrecogn ized section and content) DATE CREATED AUTHOR 12/02/2018 [facility] DATE CREATED AUTHOR AUTHOR'S ORGANIZ ATION 02/11/2020 [facility] DATE CREATED AUTHOR AUTHOR'S ORGANIZ ATION 10/09/2022 [facility] DATE CREATED AUTHOR AUTHOR'S ORGANIZ ATION 04/17/2023 [facility] DATE CREATED AUTHOR AUTHOR'S ORGANIZ ATION 04/17/2023 [employer] DATE CREATED AUTHOR AUTHOR'S ORGANIZ ATION 09/24/2023 [facility] DATE CREATED AUTHOR AUTHOR'S ORGANIZ ATION 01/27/2024 [facility] DATE CREATED AUTHOR AUTHOR'S ORGANIZ ATION 02/02/2024 [facility] DATE CREATED AUTHOR AUTHOR'S ORGANIZ ATION 04/17/2024 [facility] REASON FOR VISIT (unrecogniz ed section and content) Reason Comments Hypertension Specialty Diagnoses / Procedures Referred By Contac t Referred To Contact Cardiology Diagnoses Essential hypertension, benign Procedures Follow Up In Cardiology Charmaine Tilley MD [address] [facility] [address] [place] [address] Referral ID Status Reason Start Date Expiration Date V isits Requested Visits Authorized [id number] Authorized 07/23/2023 07/22/2024 1 1 Reason Comments Follow-up 6 months Specialty Diagnoses / Procedures Referred By Contac t Referred To Contact Diagnoses Paroxysmal atrial fibrillation (CMS/HCC) Procedures ECG 12 Lead Charmaine Tilley MD [address] [facility] [address] [place] [address] Referral ID Status Reason Start Date Expiration Date V isits Requested Visits Authorized [id number] Pending Review 09/18/2023 09/17/2024 1 1 Care Teams (unrecognized sec tion and content) Team Status: Inactive Member Role Status Dates Raghav Pineda DO Primary Care Provider Active Natalie Brian DO Emergency Provider Active Team Status: Active Member Role Status Dates Raghav Pineda DO Primary Care Provider Active Team Status: Inactive Member Role Status Dates Raghav Pineda DO Primary Care Provider Active Gonzalo Smith Jr, MD Emergency Provider Active Risk Engineer Relationship Specialty Start Date End Date Raghav Pineda DO [address] [place] [address] PCP - General 02/08/20 Risk Engineer Relationship Specialty Start Date End Date Raghav Pineda DO [address] [place] [id number] PCP - General 02/08/20 Goals (unrecognized section [...] BE BASED ON THE PRIMARY CLINICAL RECORDS. [facility] [employer] [facility]. provides no warranty or guarantee of the accuracy or completeness of information in this document.
[2024-04-21 19:06] VITALS: BP 173/72; PULSE 72; TEMP 36.9; O2SAT 96; BMI 31.9
--- NOTE | 2024-04-21 19:21 | ED_ITS ---
Documented by User: [email or web address] Harley 04/21/24 21:19 HPI HPI - General Adult General Stated complaint: Abdominal Pain Time Seen by Provider: 04/21/24 18:56 Source: patient and family Mode of arrival: walk-in Limitations: no limitations History of Present Illness HPI narrative: Patient is an 83-year-old female who presents to the emergency department for evaluation of pain in the left lower quadrant radiating to the left mid abdomen. She states she has a history of diverticulitis and this feels similar. Patient reports pain starting this morning that has eased up but at this time. When the pain became more severe this afternoon, patient's family member called 911 to take her to [facility]. They waited in the emergency department lobby for 5 hours before the family member brought her to this hospital because they were tired of waiting. Pain is minimal at this time, worse with movement of the left leg. She has had no fevers or vomiting. She denies any nausea at this time. She thought earlier today she may be constipated so she used a suppository and produced a small bowel movement with no constipation or blood. She has had a previous cholecystectomy, appendectomy and hysterectomy. She did a Cologuard last week, she states it has been many years since her last colonoscopy. She has never required surgery for diverticulitis in the past. Related Data Home Medications ?Medication ?Instructions ?Recorded ?Confirmed apixaban 5 mg tablet (Eliquis) 5 mg PO Q12H 07/24/23 04/21/24 clonidine HCl 0.1 mg tablet 0.1 mg PO Q4H PRN hypertensive 07/24/23 04/21/24 emergency flecainide 50 mg tablet 25 mg PO Q12H 07/24/23 04/21/24 hydralazine 100 mg tablet 100 mg PO Q12H 07/24/23 04/21/24 irbesartan 150 mg tablet 150 mg PO BID 07/24/23 04/21/24 spironolactone 50 mg tablet 50 mg PO DAILY 07/24/23 04/21/24 Allergies Allergy/AdvReac Type Severity Reaction Status Date / Time NORAH Inhibitors Allergy Severe Cough Verified 04/21/24 19:06 loperamide [From Imodium A-D] Allergy Severe Difficulty Verified 04/21/24 19:06 Breathing chlorthalidone AdvReac Severe Cramping Verified 04/21/24 19:06 of the Muscles clonidine AdvReac Severe Dry Mucus Verified 04/21/24 19:06 Membranes codeine AdvReac Severe Nausea Verified 04/21/24 19:06 nifedipine AdvReac Severe Palpitation Verified 04/21/24 19:06 s Penicillins AdvReac Severe Unknown Verified 04/21/24 19:06 Sulfa (Sulfonamide AdvReac Severe Nausea Verified 04/21/24 19:06 Antibiotics) hydrochlorothiazide AdvReac Unknown Joint Pain Verified 04/21/24 19:06 norvasc AdvReac Intermediate swelling Uncoded 04/21/24 19:06 of the legs Opioid HPI Opioid Management Most Recent Opioid Data: Last Pain Scale 2 04/21/24 21:15 Review of Systems ROS Constitutional Denies: fever or chills Ears, nose, mouth, and throat Denies: throat pain or nasal congestion Cardiovascular Denies: chest pain Respiratory Denies: shortness of breath Gastrointestinal Reports: abdominal pain; Denies: nausea, vomiting or diarrhea Musculoskeletal Denies: back pain or neck pain Integumentary/Breast Denies: rash Neurological Denies: headache Hematologic/Lymphatic Denies: easy bruising or easy bleeding PFSH PFSH Medical History (Updated 04/21/24 @ 22:22 by Loren Cazares MD) History of right bundle branch block ?Z86.79 - Personal history of other diseases of the circulatory system (ICD- 10) History of paroxysmal atrial tachycardia ?Z86.79 - Personal history of other diseases of the circulatory system (ICD-10) History of essential hypertension ?Z86.79 - Personal history of other diseases of the circulatory system (ICD- 10) Surgical History (Updated 07/24/23 @ 17:15 by George Taylor) History of throat surgery ?Z98.890 - Other specified postprocedural states (ICD-10) History of hysterectomy ?Z90.710 - Acquired absence of both cervix and uterus (ICD-10) History of colonoscopy ?Z98.890 - Other specified postprocedural states (ICD-10) History of cholecystectomy ?Z90.49 - Acquired absence of other specified parts of digestive tract (ICD- 10) History of cataract surgery ?Z98.49 - Cataract extraction status, unspecified eye (ICD-10) History of appendectomy ?Z90.49 - Acquired absence of other specified parts of digestive tract (ICD- 10) Social History Smoking status: Never smoker Exam Narrative Exam Narrative: Gen.: Awake, alert, in no distress Head: Normocephalic, atraumatic ENT: Moist mucous membranes Respiratory: No respiratory distress, lungs clear bilaterally Cardio: Regular rate and rhythm Gastrointestinal: Abdomen is soft, obese, nondistended and minimally tender to palpation in the left lower quadrant with no guarding or rebound. No pain out of proportion Extremities: Moves extremities equally Psych: Normal mood and affect Neuro: No focal neuro deficit Skin: Warm, dry, intact Constitutional Vital Signs, click to edit/add: Last Vital Signs Temp 98.4 F 04/21/24 19:06 Pulse 76 04/21/24 20:46 Resp 14 04/21/24 20:46 BP 150/55 H 04/21/24 20:46 Pulse Ox 98 04/21/24 20:46 O2 Del Method Room Air 04/21/24 20:46 Course Vital Signs Vital signs: Vital Signs Temperature 98.4 F 04/21/24 19:06 Pulse Rate 72 04/21/24 19:06 Respiratory Rate 16 04/21/24 19:06 Blood Pressure 173/72 H 04/21/24 19:06 Pulse Oximetry 96 04/21/24 19:06 Oxygen Delivery Method Room Air 04/21/24 19:06 Temperature 98.4 F 04/21/24 19:06 Pulse Rate 76 04/21/24 20:46 Respiratory Rate 14 04/21/24 20:46 Blood Pressure 150/55 H 04/21/24 20:46 Pulse Oximetry 98 04/21/24 20:46 Oxygen Delivery Method Room Air 04/21/24 20:46 Medical Decision Making MDM Narrative Medical decision making narrative: Patient was ordered to have IV placement, fluids, Levsin, lab studies/urine and CT of the abdomen and pelvis with IV and oral contrast. Patient and her daughter were fixated on the patient taking her nighttime blood pressure medication so I did instruct the patient to just take her regularly scheduled nighttime medication for her blood pressure. Patient and her daughter refused the oral contrast for the CT scan. 2118: Laboratory studies reviewed and noted, white blood cell count and lactic acid are normal. Patient had no significant complaints of pain in the ER. She was treated with IV fluids and Levsin. CT scan is pending at this time. Case turned over to attending physician for disposition. SUPERVISED APC VISIT, PHYSICIAN ATTESTATION: Based on the medical record the care appears appropriate. ? Medical Records Medical records reviewed: Yes I reviewed the patient's medical records Lab Data Lab results reviewed: Yes I reviewed the patient's lab results Labs: Lab Results 04/21/24 04/21/24 Range/Units 19:25 19:40 WBC 7.7 (4.0-11.0) 10^3/uL RBC 4.33 (4.20-5.40) 10^6/uL Hgb 10.3 L (12.0-16.0) g/dL Hct 34.4 L (36.0-48.0) % MCV 79.4 L (81.0-99.0) fL MCH 23.8 L (26.7-34.0) pg MCHC 29.9 (29.9-35.2) g/dL RDW 16.6 H (11.0-15.0) % Plt Count 324 (150-450) 10^3/uL MPV 9.8 (9.5-13.5) fL Neut % (Auto) 79.2 H (43.0-75.0) % Lymph % (Auto) 12.6 L (20.5-60.0) % [place] % (Auto) 6.6 (1.7-12.0) % Eos % (Auto) 1.0 (0.9-7.0) % Baso % (Auto) 0.3 (0.2-2.0) % Neut # (Auto) 6.1 (1.4-6.5) 10^3/uL Lymph # (Auto) 1.0 L (1.2-3.8) 10^3/uL [place] # (Auto) 0.5 (0.3-0.8) 10^3/uL Eos # (Auto) 0.1 (0.0-0.7) 10^3/uL Baso # (Auto) 0.0 (0.0-0.1) 10^3/uL Abs Immat Gran (auto) 0.02 (0.00-0.03) 10^3/uL Imm/Tot Granulo (auto) 0.3 (0.0-0.5) % PT 10.7 (9.0-11.6) sec INR 1.01 Sodium 141 (136-145) mmol/L Potassium 4.2 (3.5-5.1) mmol/L Chloride 104 (98-107) mmol/L Carbon Dioxide 24.9 (21.0-32.0) mmol/L Anion Gap 16.3 BUN 13.0 (7.0-18.0) mg/dL Creatinine 1.04 H (0.55-1.02) mg/dL Est GFR ( Amer) >60 (>=60) Est GFR (Non-Af Amer) 51 L (>=60) BUN/Creatinine Ratio 12.5 Glucose 109 H (74-106) mg/dL Lactate 1.0 (0.4-2.0) mmol/L Calcium 9.3 (8.5-10.1) mg/dL Total Bilirubin 0.7 (0.2-1.0) mg/dL AST 14 L (15-37) U/L ALT 13 L (14-59) U/L Alkaline Phosphatase 127 H (46-116) U/L Total Protein 7.4 (6.4-8.2) g/dL Albumin 3.3 L (3.4-5.0) g/dL Globulin 4.1 g/dL Albumin/Globulin Ratio 0.8 Lipase 29.0 (16.0-77.0) U/L Urine Color Lt. yellow (YELLOW) Urine Clarity Clear (CLEAR) Urine pH 6.0 (5.0-9.0) Ur Specific [place] 1.015 (1.005-1.025) Urine Protein Negative (NEG/TRACE) mg/dL Urine Glucose (UA) Negative (NEGATIVE) mg/dL Urine Ketones Negative (NEGATIVE) mg/dL Urine Occult Blood Negative (NEGATIVE) Urine Nitrite Negative (NEGATIVE) Urine Bilirubin Negative (NEGATIVE) Urine Urobilinogen 0.2 (0.2-1.0) EU/dL Ur Leukocyte Esterase Small A (NEGATIVE) Urine RBC None seen (0-2) #/HPF Urine WBC 2-5 A (NONE SEEN) #/HPF Ur Squamous Epith Cells Few A (NONE/RARE) #/LPF Urine Crystals None seen (None Seen) #/HPF Urine Bacteria None seen (NONE SEEN) #/HPF Urine Casts None seen (NONE SEEN) #/LPF Urine Mucus None seen (NONE SEEN) Ur Culture Indicated? No Discharge Plan Discharge Stand Alone Forms: Portal Instructions Clinical Impression: Abdominal pain, Diverticulosis Patient Disposition: Home, Self-Care Time of Disposition Decision: 22:18 Condition: Good Prescriptions / Home Meds: No Action Eliquis 5 mg tablet 5 mg PO Q12H clonidine HCl 0.1 mg tablet 0.1 mg PO Q4H PRN (Reason: hypertensive emergency) flecainide 50 mg tablet 25 mg PO Q12H hydralazine 100 mg tablet 100 mg PO Q12H irbesartan 150 mg tablet 150 mg PO BID spironolactone 50 mg tablet 50 mg PO DAILY Print Language: Kittitian Referrals: ASHLEY PINEDA [Primary Care Provider] - 1 week Documented by User: Loren Cazares MD 04/21/24 22:25 HPI HPI - General Adult General Stated complaint: Abdominal Pain Time Seen by Provider: 04/21/24 18:56 Related Data Home Medications ?Medication ?Instructions ?Recorded ?Confirmed apixaban 5 mg tablet (Eliquis) 5 mg PO Q12H 07/24/23 04/21/24 clonidine HCl 0.1 mg tablet 0.1 mg PO Q4H PRN hypertensive 07/24/23 04/21/24 emergency flecainide 50 mg tablet 25 mg PO Q12H 07/24/23 04/21/24 hydralazine 100 mg tablet 100 mg PO Q12H 07/24/23 04/21/24 irbesartan 150 mg tablet 150 mg PO BID 07/24/23 04/21/24 spironolactone 50 mg tablet 50 mg PO DAILY 07/24/23 04/21/24 Allergies Allergy/AdvReac Type Severity Reaction Status Date / Time NORAH Inhibitors Allergy Severe Cough Verified 04/21/24 19:06 loperamide [From Imodium A-D] Allergy Severe Difficulty Verified 04/21/24 19:06 Breathing chlorthalidone AdvReac Severe Cramping Verified 04/21/24 19:06 of the Muscles clonidine AdvReac Severe Dry Mucus Verified 04/21/24 19:06 Membranes codeine AdvReac Severe Nausea Verified 04/21/24 19:06 nifedipine AdvReac Severe Palpitation Verified 04/21/24 19:06 s Penicillins AdvReac Severe Unknown Verified 04/21/24 19:06 Sulfa (Sulfonamide AdvReac Severe Nausea Verified 04/21/24 19:06 Antibiotics) hydrochlorothiazide AdvReac Unknown Joint Pain Verified 04/21/24 19:06 norvasc AdvReac Intermediate swelling Uncoded 04/21/24 19:06 of the legs Opioid HPI Opioid Management Most Recent Opioid Data: Last Pain Scale 2 04/21/24 21:15 PFSH PFSH Medical History (Updated 04/21/24 @ 22:22 by Loren Cazares MD) History of right bundle branch block ?Z86.79 - Personal history of other diseases of the circulatory system (ICD- 10) History of paroxysmal atrial tachycardia ?Z86.79 - Personal history of other diseases of the circulatory system (ICD- 10) History of essential hypertension ?Z86.79 - Personal history of other diseases of the circulatory system (ICD- 10) Surgical History (Updated 07/24/23 @ 17:15 by George Taylor) History of throat surgery ?Z98.890 - Other specified postprocedural states (ICD-10) History of hysterectomy ?Z90.710 - Acquired absence of both cervix and uterus (ICD-10) History of colonoscopy ?Z98.890 - Other specified postprocedural states (ICD-10) History of cholecystectomy ?Z90.49 - Acquired absence of other specified parts of digestive tract (ICD- 10) History of cataract surgery ?Z98.49 - Cataract extraction status, unspecified eye (ICD-10) History of appendectomy ?Z90.49 - Acquired absence of other specified parts of digestive tract (ICD- 10) Social History Smoking status: Never smoker Exam Constitutional Vital Signs, click to edit/add: Last Vital Signs Temp 98.4 F 04/21/24 19:06 Pulse 76 04/21/24 20:46 Resp 14 04/21/24 20:46 BP 150/55 H 04/21/24 20:46 Pulse Ox 98 04/21/24 20:46 O2 Del Method Room Air 04/21/24 20:46 Course Vital Signs Vital signs: Vital Signs Temperature 98.4 F 04/21/24 19:06 Pulse Rate 72 04/21/24 19:06 Respiratory Rate 16 04/21/24 19:06 Blood Pressure 173/72 H 04/21/24 19:06 Pulse Oximetry 96 04/21/24 19:06 Oxygen Delivery Method Room Air 04/21/24 19:06 Temperature 98.4 F 04/21/24 19:06 Pulse Rate 76 04/21/24 20:46 Respiratory Rate 14 04/21/24 20:46 Blood Pressure 150/55 H 04/21/24 20:46 Pulse Oximetry 98 04/21/24 20:46 Oxygen Delivery Method Room Air 04/21/24 20:46 Medical Decision Making MDM Narrative Medical decision making narrative: Patient was ordered to have IV placement, fluids, Levsin, lab studies/urine and CT of the abdomen and pelvis with IV and oral contrast. Patient and her daughter were fixated on the patient taking her nighttime blood pressure medication so I did instruct the patient to just take her regularly scheduled nighttime medication for her blood pressure. Patient and her daughter refused the oral contrast for the CT scan. 8: Laboratory studies reviewed and noted, white blood cell count and lactic acid are normal. Patient had no significant complaints of pain in the ER. She was treated with IV fluids and Levsin. CT scan is pending at this time. Case turned over to attending physician for disposition. SUPERVISED APC VISIT, PHYSICIAN ATTESTATION: Based on the medical record the care appears appropriate. This 83-year-old female was seen and evaluated in conjunction with the physician dam tender assistant. She presents for evaluation of left lower quadrant abdominal pain with excessive belching. She has a history of diverticulosis and diverticulitis. She has not had a fever. Her abdomen was soft. The symptoms started earlier today with severe left lower quadrant abdominal pain that prompted them to call the emergency department. They went to [facility]'s emergency department because the patient's physicians are all associated with that hospital. After waiting 5 hours in the ER waiting room they came to this emergency department. Her vital signs are stable. Labs are normal. CT scan of the abdomen pelvis which is included in the body of this report shows diverticulosis without diverticulitis or other acute abnormalities. The results of the CT scan were discussed with the patient and her daughter and she was given a copy of the CT scan for her records and to share with her physicians. She received Levsin in the emergency department with resolution of her abdominal pain. The patient's daughter requests a prescription for the Levsin as the patient has used this in the past with good results and has a prescription which has been for several years. She is otherwise comfortable and stable for discharge. ? Medical Records Medical records narrative: [place] [address] CT Scan Report Signed Patient: NILO RIZZO MR#: [id number] : 1940 Acct:[id number] Age/Sex: 83 / F ADM Date: 04/21/24 Loc: ER Attending Dr: Ordering Physician: Misael Perez Date of Service: 04/21/24 Procedure(s): CT abdomen pelvis w con Accession Number(s): [id number] cc: ASHLEY PINEDA ~ [facility] [place] [address] Patient Name: NILO RIZZO MRN: [id number] date: 1940 Sex: F Assigned Patient Location: ER Current Patient Location: ED.MAIN Accession/Order Number: [id number] Exam Date: 04/21/2024 08:19 Report Date: 04/21/2024 21:50 At the request of: MISAEL PEREZ Procedure: CT abdomen pelvis w con EXAM: CT abdomen pelvis w con HISTORY: Left sided abdominal pain . History of diverticulitis. Previous abdominal pelvic surgery. COMPARISON: 10/26/2021 TECHNIQUE: CT abdomen pelvis with contrast. Axial scans with reformatted coronal sagittal images. Individualized dose reduction used for this exam. Contrast: 100 mL Omnipaque 300 FINDINGS: Lower chest: No acute process lower chest. ABDOMEN: Liver unremarkable without focal lesion. Previous cholecystectomy. No biliary dilatation. Minor left adrenal nodularity unchanged. Right adrenal unremarkable. Pancreas unremarkable. Splenic granuloma unchanged. No ascites or free fluid. No adenopathy. Normal size aorta. Symmetric renal enhancement without mass or hydronephrosis, normal ureters No bowel dilatation wall thickening or edema. Colonic diverticulosis most extensive left lower quadrant pelvis without adjacent fluid or diverticulitis. Prominent gas and stool in the cecum similar to previous. Pelvis: No mass or adenopathy or free fluid. Previous hysterectomy. MUSCULOSKELETAL: No suspicious bone lesion. CT/CT abdomen pelvis w con IMPRESSION: No acute abnormality lower chest, abdomen or pelvis. Extensive diverticulosis left lower quadrant and pelvic colon without CT evidence of diverticulitis. Electronically authenticated by: ODETTE SARMIENTO Date: 04/21/2024 21:50 Lab Data Labs: Lab Results 04/21/24 04/21/24 Range/Units 19:25 19:40 WBC 7.7 (4.0-11.0) 10^3/uL RBC 4.33 (4.20-5.40) 10^6/uL Hgb 10.3 L (12.0-16.0) g/dL Hct 34.4 L (36.0-48.0) % MCV 79.4 L (81.0-99.0) fL MCH 23.8 L (26.7-34.0) pg MCHC 29.9 (29.9-35.2) g/dL RDW 16.6 H (11.0-15.0) % Plt Count 324 (150-450) 10^3/uL MPV 9.8 (9.5-13.5) fL Neut % (Auto) 79.2 H (43.0-75.0) % Lymph % (Auto) 12.6 L (20.5-60.0) % [place] % (Auto) 6.6 (1.7-12.0) % Eos % (Auto) 1.0 (0.9-7.0) % Baso % (Auto) 0.3 (0.2-2.0) % Neut # (Auto) 6.1 (1.4-6.5) 10^3/uL Lymph # (Auto) 1.0 L (1.2-3.8) 10^3/uL [place] # (Auto) 0.5 (0.3-0.8) 10^3/uL Eos # (Auto) 0.1 (0.0-0.7) 10^3/uL Baso # (Auto) 0.0 (0.0-0.1) 10^3/uL Abs Immat Gran (auto) 0.02 (0.00-0.03) 10^3/uL Imm/Tot Granulo (auto) 0.3 (0.0-0.5) % PT 10.7 (9.0-11.6) sec INR 1.01 Sodium 141 (136-145) mmol/L Potassium 4.2 (3.5-5.1) mmol/L Chloride 104 (98-107) mmol/L Carbon Dioxide 24.9 (21.0-32.0) mmol/L Anion Gap 16.3 BUN 13.0 (7.0-18.0) mg/dL Creatinine 1.04 H (0.55-1.02) mg/dL Est GFR ( Amer) >60 (>=60) Est GFR (Non-Af Amer) 51 L (>=60) BUN/Creatinine Ratio 12.5 Glucose 109 H (74-106) mg/dL Lactate 1.0 (0.4-2.0) mmol/L Calcium 9.3 (8.5-10.1) mg/dL Total Bilirubin 0.7 (0.2-1.0) mg/dL AST 14 L (15-37) U/L ALT 13 L (14-59) U/L Alkaline Phosphatase 127 H (46-116) U/L Total Protein 7.4 (6.4-8.2) g/dL Albumin 3.3 L (3.4-5.0) g/dL Globulin 4.1 g/dL Albumin/Globulin Ratio 0.8 Lipase 29.0 (16.0-77.0) U/L Urine Color Lt. yellow (YELLOW) Urine Clarity Clear (CLEAR) Urine pH 6.0 (5.0-9.0) Ur Specific [place] 1.015 (1.005-1.025) Urine Protein Negative (NEG/TRACE) mg/dL Urine Glucose (UA) Negative (NEGATIVE) mg/dL Urine Ketones Negative (NEGATIVE) mg/dL Urine Occult Blood Negative (NEGATIVE) Urine Nitrite Negative (NEGATIVE) Urine Bilirubin Negative (NEGATIVE) Urine Urobilinogen 0.2 (0.2-1.0) EU/dL Ur Leukocyte Esterase Small A (NEGATIVE) Urine RBC None seen (0-2) #/HPF Urine WBC 2-5 A (NONE SEEN) #/HPF Ur Squamous Epith Cells Few A (NONE/RARE) #/LPF Urine Crystals None seen (None Seen) #/HPF Urine Bacteria None seen (NONE SEEN) #/HPF Urine Casts None seen (NONE SEEN) #/LPF Urine Mucus None seen (NONE SEEN) Ur Culture Indicated? No Discharge Plan Discharge Stand Alone Forms: Portal Instructions Clinical Impression: Abdominal pain, Diverticulosis Patient Disposition: Home, Self-Care Time of Disposition Decision: 22:18 Condition: Good Prescriptions / Home Meds: No Action Eliquis 5 mg tablet 5 mg PO Q12H clonidine HCl 0.1 mg tablet 0.1 mg PO Q4H PRN (Reason: hypertensive emergency) flecainide 50 mg tablet 25 mg PO Q12H hydralazine 100 mg tablet 100 mg PO Q12H irbesartan 150 mg tablet 150 mg PO BID spironolactone 50 mg tablet 50 mg PO DAILY Print Language: Kittitian Referrals: ASHLEY PINEDA [Primary Care Provider] - 1 week
[2024-04-21 19:34] LABS: Basophils Percent Auto 0.3 % (0.2-2.0); Eosinophils Absolute Auto 0.1 10^3/uL (0.0-0.7); Hematocrit 34.4 % (36.0-48.0); Hemoglobin 10.3 g/dL (12.0-16.0); Immature Granulocytes Abs Auto 0.02 10^3/uL (0.00-0.03); Immature Granulocytes Pct Auto 0.3 % (0.0-0.5); Lymphocytes Percent Auto 12.6 % (20.5-60.0); Mean Corpuscular HGB Conc 29.9 g/dL (29.9-35.2); Mean Corpuscular Hemoglobin 23.8 pg (26.7-34.0); Mean Corpuscular Volume 79.4 fL (81.0-99.0); Mean Platelet Volume 9.8 fL (9.5-13.5); Monocytes Absolute Auto 0.5 10^3/uL (0.3-0.8); Monocytes Percent Auto 6.6 % (1.7-12.0); Neutrophils Absolute Auto 6.1 10^3/uL (1.4-6.5); Neutrophils Percent Auto 79.2 % (43.0-75.0); Platelet Count 324 10^3/uL (150-450); Red Blood Count 4.33 10^6/uL (4.20-5.40); Red Cell Distribution Width 16.6 % (11.0-15.0); White Blood Count 7.7 10^3/uL (4.0-11.0)
[2024-04-21] MEDS: 0.9 % SODIUM CHLORIDE 1,000 ML 1000 ML IV (19:37)
[2024-04-21] MEDS: HYOSCYAMINE SULFATE 0.125 MG TAB.SUBL SL (19:37)
[2024-04-21 19:49] LABS: INR 1.01; Prothrombin Time 10.7 sec (9.0-11.6)
[2024-04-21 19:50] LABS: Alanine Aminotransferase 13 U/L (14-59); Albumin Globulin Ratio 0.8; Albumin Level 3.3 g/dL (3.4-5.0); Alkaline Phosphatase 127 U/L (46-116); Anion Gap 16.3; Aspartate Amino Transferase 14 U/L (15-37); BUN Creatinine Ratio 12.5; Bilirubin Total 0.7 mg/dL (0.2-1.0); Calcium 9.3 mg/dL (8.5-10.1); Carbon Dioxide 24.9 mmol/L (21.0-32.0); Chloride 104 mmol/L (98-107); Estimated GFR (African America >60 (>=60); Estimated GFR (Non-African Ame 51 (>=60); Globulin 4.1 g/dL; Glucose 109 mg/dL (74-106); Potassium 4.2 mmol/L (3.5-5.1); Sodium 141 mmol/L (136-145); Total Protein 7.4 g/dL (6.4-8.2)
[2024-04-21 20:07] LABS: Bilirubin Urine NEGATIVE (NEGATIVE); Blood Urine NEGATIVE (NEGATIVE); Clarity Urine CLEAR (CLEAR); Color Urine LT. YELLOW (YELLOW); Glucose Urine UA NEGATIVE (NEGATIVE); Ketones Urine NEGATIVE (NEGATIVE); Leukocyte Esterase Urine SMALL (NEGATIVE); Nitrite Urine NEGATIVE (NEGATIVE); Protein Urine NEGATIVE (NEG/TRACE); Specific Gravity Urine 1.015 (1.005-1.025); Urobilinogen Urine 0.2 EU/dL (0.2-1.0)
[2024-04-21 20:09] LABS: Urine Microscopic Indicated YES
[2024-04-21 20:16] LABS: Bacteria Urine NONE SEEN #/HPF (NONE SEEN); Cast Seen? NONE SEEN #/LPF (NONE SEEN); Crystals Seen? None Seen #/HPF (None Seen); Mucus Urine NONE SEEN (NONE SEEN); RBC Urine NONE SEEN #/HPF (0-2); Squamous Epithelial Cell Urine FEW #/LPF (NONE/RARE); Urine Culture Indicated NO
[2024-04-21 20:46] VITALS: BP 150/55; PULSE 76; O2SAT 98
[2024-04-21 22:38] VITALS: BP 145/60; PULSE 78; O2SAT 97
== END 2024-04-21 22:33 | disposition home or self-care (01) ==
PROVIDERS: Physician Assistant; Emergency Provider Emergency Medicine; PCP Family Medicine
DX: K57.90 Diverticulosis of intestine, part unspecified, without perforation or abscess without bleeding (principal); R10.9 Unspecified abdominal pain; Z90.710 Acquired absence of both cervix and uterus; Z90.49 Acquired absence of other specified parts of digestive tract; E66.9 Obesity, unspecified; Z68.31 Body mass index [BMI] 31.0-31.9, adult
CPT/HCPCS: 36415; 74177; 80053; 81001; 83605; 83690; 85025; 85610; 99285; Q9967

== ENCOUNTER 2024-11-04 09:54 | Emergency (ER) | payer MEDICARE, OTHER, SELFPAY ==
[2024-11-04 10:02] VITALS: BP 159/79; PULSE 90; TEMP 36.8; O2SAT 97; BMI 31.9
--- NOTE | 2024-11-04 10:39 | XR_ITS ---
The [address] [address] Patient Name: NLIO RIZZO MRN: [id number] date: 1940 Sex: F Assigned Patient Location: ER Current Patient Location: ER Accession/Order Number: [id number] Exam Date: 11/04/2024 10:45 Report Date: 11/04/2024 11:25 At the request of: MIKY GARNICA Procedure: XR chest 2V EXAMINATION: XR chest 2V HISTORY: cough COMPARISON: 09/10/2006 report TECHNIQUE: PA and lateral FINDINGS: LUNGS: No significant pulmonary parenchymal abnormalities. VASCULATURE: No increased pulmonary vasculature. PLEURA: No pneumothorax, effusion, or pleural thickening. CARDIAC: No cardiomegaly or cardiac silhouette abnormality. MEDIASTINUM: No visible mass or adenopathy. BONES: No fracture or visible bone lesion. OTHER: Negative. XR/XR chest 2V IMPRESSION: No acute cardiopulmonary process Electronically authenticated by: BEATRIZ MONDRAGON Date: 11/04/2024 11:25
--- NOTE | 2024-11-04 10:41 | ED_ITS ---
HPI HPI - General Adult General Chief complaint: Upper Respiratory Infection Stated complaint: COUGH Time Seen by Provider: 11/04/24 10:06 Mode of arrival: walk-in History of Present Illness HPI narrative: 84-year-old female to the emergency department with chief complaint of cough. Cough is been ongoing for the last week. She feels congested in her throat. She reports she has a chronic tickle in the back of her throat which makes her cough. She denies any fever, sweats, chills. No shortness of breath. She could not get into see her PCP so came to the ER for evaluation. Related Data Home Medications ?Medication ?Instructions ?Recorded ?Confirmed apixaban 5 mg tablet (Eliquis) 5 mg PO Q12H 07/24/23 11/04/24 clonidine HCl 0.1 mg tablet 0.1 mg PO Q4H PRN hypertensive 07/24/23 11/04/24 emergency flecainide 50 mg tablet 25 mg PO Q12H 07/24/23 11/04/24 hydralazine 100 mg tablet 100 mg PO Q12H 07/24/23 11/04/24 irbesartan 150 mg tablet 150 mg PO BID 07/24/23 11/04/24 spironolactone 50 mg tablet 50 mg PO DAILY 07/24/23 11/04/24 nitrofurantoin 100 mg PO Q12H 11/04/24 11/04/24 monohydrate/macrocrystals 100 mg capsule Previous Rx's ?Medication ?Instructions ?Recorded benzonatate 100 mg capsule 100 mg PO BID PRN cough 7 days #14 11/04/24 caps doxycycline monohydrate 100 mg 100 mg PO BID 7 days #14 caps 11/04/24 capsule Allergies Allergy/AdvReac Type Severity Reaction Status Date / Time NORAH Inhibitors Allergy Severe Cough Verified 04/21/24 19:06 loperamide (From Imodium A-D) Allergy Severe Difficulty Verified 04/21/24 19:06 Breathing chlorthalidone AdvReac Severe Cramping Verified 04/21/24 19:06 of the Muscles clonidine AdvReac Severe Dry Mucus Verified 04/21/24 19:06 Membranes codeine AdvReac Severe Nausea Verified 04/21/24 19:06 nifedipine AdvReac Severe Palpitation Verified 04/21/24 19:06 s Penicillins AdvReac Severe Unknown Verified 04/21/24 19:06 Sulfa (Sulfonamide AdvReac Severe Nausea Verified 04/21/24 19:06 Antibiotics) hydrochlorothiazide AdvReac Unknown Joint Pain Verified 04/21/24 19:06 norvasc AdvReac Intermediate swelling Uncoded 04/21/24 19:06 of the legs Opioid HPI Opioid Management Most Recent Opioid Data: Last Pain Scale 2 04/21/24 21:15 04/21/24 Review of Systems ROS Status of ROS 10 or more systems reviewed and unremark able except as noted in history and below PFSH [facility] Medical History (Updated 11/04/24 @ 11:41 by Jeff Sue MD) History of right bundle branch block ?Z86.79 - Personal history of other diseases of the circulatory system (ICD- 10) History of paroxysmal atrial tachycardia ?Z86.79 - Personal history of other diseases of the circulatory system (ICD- 10) History of essential hypertension ?Z86.79 - Personal history of other diseases of the circulatory system (ICD- 10) Surgical History (Updated 07/24/23 @ 17:15 by Beatriz Taylor) History of throat surgery ?Z98.890 - Other specified postprocedural states (ICD-10) History of hysterectomy ?Z90.710 - Acquired absence of both cervix and uterus (ICD-10) History of colonoscopy ?Z98.890 - Other specified postprocedural states (ICD-10) History of cholecystectomy ?Z90.49 - Acquired absence of other specified parts of digestive tract (ICD- 10) History of cataract surgery ?Z98.49 - Cataract extraction status, unspecified eye (ICD-10) History of appendectomy ?Z90.49 - Acquired absence of other specified parts of digestive tract (ICD- 10) Social History Smoking status: Never smoker Little interest or pleasure in doing things: not at all Feeling down, depressed, or hopeless: not at all Exam Narrative Exam Narrative: VITALS: I have reviewed the triage vital signs. GENERAL: Well developed, well appearing adult in no acute distress. NEURO: Alert and oriented. Moves all extremities. Face is symmetric and expressive. EYES: PERRL. No scleral icterus or conjunctival injection. No discharge. HENT: Normocephalic, atraumatic. Hearing is grossly intact. Nares grossly patent and without discharge. Mucous membranes moist. NECK: No JVD. Patient moves neck without restriction. CARDIO: Rhythm regular. Normal rate. No murmur, rub, or gallop. Pulses equal bilaterally in the upper and lower extremity. No lower extremity edema. PULM: Dry cough. Lungs clear to auscultation in all khan. No wheezes, rales, or rhonchi. No conversational dyspnea. No splinting, stridor, or accessory muscle use. EXTREMITIES: Symmetric muscle bulk. No joint swelling. No clubbing, cyanosis, or deformity. SKIN: Warm and dry. Normal turgor. No rash or lesions appreciated. PSYCH: Mood, affect, and interaction is appropriate to the setting. Constitutional Vital Signs, click to edit/add: Last Vital Signs Temp 98.2 F 11/04/24 10:02 Pulse 90 11/04/24 10:02 Resp 18 11/04/24 10:02 BP 159/79 H 11/04/24 10:02 Pulse Ox 97 11/04/24 10:02 O2 Del Method Room Air 11/04/24 10:02 Course Vital Signs Vital signs: Vital Signs Temperature 98.2 F 11/04/24 10:02 Pulse Rate 90 11/04/24 10:02 Respiratory Rate 18 11/04/24 10:02 Blood Pressure 159/79 H 11/04/24 10:02 Pulse Oximetry 97 11/04/24 10:02 Oxygen Delivery Method Room Air 11/04/24 10:02 Temperature 98.2 F 11/04/24 10:02 Pulse Rate 90 11/04/24 10:02 Respiratory Rate 18 11/04/24 10:02 Blood Pressure 159/79 H 11/04/24 10:02 Pulse Oximetry 97 11/04/24 10:02 Oxygen Delivery Method Room Air 11/04/24 10:02 Medical Decision Making [facility] Narrative Medical decision making narrative: 84-year-old female to the emergency department chief complaint of cough for the last week. Vital stable, the patient is afebrile. Her lungs are clear. She is in no respiratory distress. Oropharyngeal exam is unremarkable. She is tolerating her secretions. Will obtain a chest x-ray at the patient and her daughter's request. Chest x-ray without acute findings She does report that she has had some sinus pressure and drainage. Will treat for sinusitis given the duration greater than 10 days, severe symptoms. Kareymonafrederick Noel for cough. Doxycycline is utilized as she is allergic to penicillin. Follow-up with PCP. Return precautions were discussed. All questions were answered. The patient was discharged home Medical Records Medical records reviewed: Yes I reviewed the patient's medical records Imaging Data Chest x-ray: Radiologist's impression: ITS Impressions Chest X-Ray 11/04/24 10:39 IMPRESSION: No acute cardiopulmonary process Electronically authenticated by: BEATRIZ MONDRAGON Date: 11/04/2024 11:25 Discharge Plan Discharge Chief Complaint: Upper Respiratory Infection Clinical Impression: Sinusitis, Laryngitis Patient Disposition: Home, Self-Care Time of Disposition Decision: 11:40 Condition: Good Mode of Transportation: Private Vehicle Prescriptions / Home Meds: New benzonatate 100 mg capsule 100 mg PO BID PRN (Reason: cough) 7 Days Qty: 14 0RF doxycycline monohydrate 100 mg capsule 100 mg PO BID 7 Days Qty: 14 0RF No Action Eliquis 5 mg tablet 5 mg PO Q12H clonidine HCl 0.1 mg tablet 0.1 mg PO Q4H PRN (Reason: hypertensive emergency) flecainide 50 mg tablet 25 mg PO Q12H hydralazine 100 mg tablet 100 mg PO Q12H irbesartan 150 mg tablet 150 mg PO BID spironolactone 50 mg tablet 50 mg PO DAILY nitrofurantoin monohyd/m-cryst 100 mg capsule 100 mg PO Q12H Print Language: Kazakh Instructions: Sinusitis (ED) Additional Instructions: Call the office of your primary care doctor to arrange for follow-up within the above-stated timeframe. Your ED visit was focused on your acute issue and does not replace primary care. You should review your labs, imaging, and diagnoses from this ED visit with your primary care physician. There may be non-emergent/ incidental findings that need further evaluation. You should review your vital signs including blood pressure with your PCP. If you were prescribed medications you should discuss possible side-effects and drug interactions with your pharmacist. Call 911 or go to the nearest Emergency Department if you develop any new or worsening symptoms. Referrals: ASHLEY PINEDA [Primary Care Provider] - 1 week
== END 2024-11-04 12:14 | disposition home or self-care (01) ==
PROVIDERS: Emergency Provider Student in an Organized Health Care Education/Training Program; PCP Family Medicine
DX: J04.0 Acute laryngitis (principal); J32.9 Chronic sinusitis, unspecified; Z90.710 Acquired absence of both cervix and uterus; Z90.49 Acquired absence of other specified parts of digestive tract
CPT/HCPCS: 71046; 99283

== ENCOUNTER 2024-11-20 10:18 | Emergency (ER) | payer MEDICARE, OTHER, SELFPAY ==
[2024-11-20 10:30] VITALS: BP 154/84; PULSE 85; TEMP 36.7; O2SAT 98; BMI 31.9
--- OUTSIDE RECORDS SUMMARY | 2024-11-20 10:30 | XMS_ITS | CCD ---
Author Organization [facility] Care Team Providers Care Jail Keeper Name Role Phone CHARMAINE PINEDO Attending Unavailable RAGHAV MITCHELL Primary Care Unavailable JES KEITH Attending Unavailable RAGHAV MITCHELL Primary Care Unavailable JES KEITH Attending Unavailable RAGHAV MITCHELL Primary Care Unavailable Raghav Mitchell Unavailable Unavailable Unavailable George Adams Unavailable DO Raghav Mitchell Primary Care Provider [phone] DO Natalie Brian Emergency Provider Isrrael Aparicio Unavailable DR RAGHAV MITCHELL Primary Care Unavailable JEANINE NOLAN Admitting Unavailable JEANINE NOLAN Attending Unavailable JEANINE NOLAN Consulting Unavailable MISJenny, DR STACY Admitting Unavailable MISC, DR STACY Attending Unavailable STEPHEN, DR AVILEZ Primary Care Unavailable ANTONY, DR STACY Consulting Unavailable LEDA, DR BOSCH Admitting Unavailable LEDA, DR BOSCH Attending Unavailable STEPHEN, DR AVILEZ Primary Care Unavailable LEDA, DR BOSCH Consulting Unavailable Clementina Gandhi Consulting Unavailable STEPHEN, DR AVILEZ Primary Care Unavailable JEANINE NOLAN Admitting Unavailable JEANINE NOLAN Attending Unavailable SHERON FLYNN Consulting Unavailable STEPHEN, DR AVILEZ Primary Care Unavailable JEANINE NOLAN Admitting Unavailable JEANINE NOLAN Attending Unavailable JEANINE NOLAN Consulting Unavailable STEPHEN, DR AVILEZ Primary Care Unavailable KERON, DR TRANG Goins Admitting Unavailkirill CABRALES, DR TRANG Goins Attending Unavailkirill CABRALES, DR TRANG Goins Consulting UnavailDO Raghav Garcia Primary Care Provider MD Gonzalo Smith Jr Emergency Provider Pinedo, Dr. Charmaine Mancilla Referring Cherri vailable Stephen, Dr. Raghav Wagner Primary Care Unavaila ble Pinedo, Dr. Charmaine Mancilla Attending Cherri vailable Pinedo, Dr. Charmaine Mancilla Referring Cherri vailable Stephen, Dr. Raghav Wagner Primary Care Unavaila ble Pinedo, Dr. Charmaine Mancilla Attending Cherri vailable Stephen, DO Avilez Primary Care Provider DO Roc Natalie Emergency Provider Raghav Mitchell DO Primary Care Provider [phone] DO Raghav Mitchell Primary Care Provider Roc, Natalie Emergency Provider [phone] Roc Natalie Admitting Unavailable Natalie Brian Attending Unavailable Raghav Mitchell [facility] Care Unavailable Roc Natalie Admitting Unavailable Natalie Brian Attending Unavailable Raghav Mitchell [facility] Care Unavailable Gonzalo Smith Jr Admitting Unavailable Gonzalo Smith Jr Attending Unavailable Raghav Mitchell [facility] Care Unavailable PRISCA FORBES Referring Unavailable RAGHAV MITCHELL Primary Care Unavailable DO Raghav Mitchell Primary Care Provider [phone] DO Alvin Murphy Emergency Provider Raghav Mitchell DO Unavailable Raghav Mitchell DO Primary Care Provider Charmaine Pinedo MD Unavailable Porfirio Rubio DPM Unavailable [phone] CHARMAINE PINEDO Attending Unavailable RAGHAV MITCHELL Primary Care Unavailable CHARMAINE PINEDO Attending Unavailable CHARMAINE PINEDO Referring Unavailable RAGHAV MITCHELL Primary Care Unavailable PORFIRIO RUBIO S Attending Unavailable ELTON OSCAR Attending Unavailable RAGHAV MITCHELL Referring Unavailable HOLLY BACON Attending Unavailable RAGHAV MITCHELL Referring Unavailable SUSAN MCMAHAN Attending Unavailable RAGHAV MITCHELL Referring Unavailable JOANNE, PORFIRIO S Attending Unavailable LORELEI PLUNKETT Attending Unavailable RAGHAV MITCHELL Referring Unavailable RAGHAV MITCHELL Attending Unavailable RAGHAV MITCHELL Referring Unavailable JOANNE, PORFIRIO S Attending Unavailable RAGHAV MITCHELL Attending Unavailable RUS, PORFIRIO S Attending Unavailable CHLOE MERCADO Attending Unavailable CHLOE MERCADO Referring Unavailable CHLOE MERCADO Referring Unavailable RAGHAV MITCHELL Attending Unavailable Allergies Allergy Classification Reported Allergen(s) Allergy Type Date of Onset Reaction(s) Facility (20 sources) amLODIPine; Translations: [Norvasc] Drug Allergy 023 Unknown, Swelling [facility] [address] [place] Work Phone: (18 sources) Angiotensin Converting Enzyme (Norah) Inhibitors; Translations: [NORAH Inhibitors] Allergy to drug (finding) Cough [facility] (20 sources) Chlorthalidone; Translations: [chlorthalidone] Drug Allergy Myalgia [facility] (20 sources) cloNIDine; Translations: [clonidine] Drug Allergy Other, Constipation, Unknown [facility] (20 sources) Codeine; Translations: [codeine] Drug Allergy 019 Nausea Only, Unknown [facility] (20 sources) hydroCHLOROthiazide; Translations: [hydrochlorothiazide] Drug Allergy [facility] (20 sources) Loperamide; Translations: [Imodium] Drug Allergy 023 Nausea Only [facility] [address] [place] Work Phone: (20 sources) NIFEdipine; Translations: [NIFEdipine] Drug Allergy Palpitations [facility] (18 sources) Penicillins; Translations: [Penicillins] Allergy to drug (finding) Unknown Reaction [facility] (17 sources) Sulfamethoxazole; Translations: [sulfa] Drug Allergy 023 Unknown [facility] [address] [place] Work Phone: (11 sources) Sulfonamides (Antibiotic); Translations: [Sulfa Drugs] Allergy to drug (finding) Nausea [facility] [address] [place] Work Phone: (3 sources) Loperamide Drug Allergy 022 Unknown [facility] (2 sources) Penicillins (Antibiotic) Propensity to adverse reactions Unknown [facility] [employer] Other (3 sources) Anti inflammatory Propensity to adverse reactions Unknown [facility] (7 sources) amLODIPine; Translations: [amlodipine] Drug Allergy Leg Swelling [facility] (7 sources) Loperamide; Translations: [loperamide] Drug Allergy Difficulty Swallowing [facility] (6 sources) Sulfonamides (Antibiotic); Translations: [Sulfa (Sulfonamide Antibiotics)] Propensity to adverse reactions Vomiting [facility] (1 source) amLODIPine Drug Allergy [facility] (1 source) Angiotensin Converting Enzyme (Norah) Inhibitors Drug allergy (disorder) [facility] (1 source) Chlorthalidone Drug Allergy [facility] (1 source) Codeine Drug Allergy [facility] (1 source) Flupenthixol Drug Allergy [facility] (1 source) hydroCHLOROthiazide Drug Allergy [facility] (1 source) Loperamide Drug Allergy [facility] (1 source) Penicillin Drug Allergy [facility] (1 source) Sulfonamides (Antibiotic) Drug allergy (disorder) [facility] (3 sources) Angiotensin-convertin g enzyme inhibitor agent Drug Intolerance Cough [facility] (3 sources) Penicillins Drug Intolerance [facility] Work Phone: (1 source) Angiotensin Converting Enzyme (Norah) Inhibitors Drug allergy (disorder) [facility] (1 source) Chlorthalidone Drug Allergy [facility] (1 source) cloNIDine Drug Allergy [facility] (1 source) Codeine Drug Allergy [facility] (1 source) hydroCHLOROthiazide Drug Allergy [facility] (1 source) NIFEdipine Drug Allergy [facility] (1 source) Penicillins Drug allergy (disorder) [facility] (13 sources) Angiotensin-convertin g enzyme inhibitor agent Drug Allergy 019 Other [facility] (13 sources) Chlorthalidone Drug Allergy [facility] Work Phone: (13 sources) hydroCHLOROthiazide Drug Allergy Diarrhea, Unknown [facility] (13 sources) Lisinopril Allergy to substance [facility] (13 sources) Nifedipine Allergy to substance Palpitations [facility] (13 sources) Non-steroidal anti-inflammatory agent Drug Allergy [facility] (13 sources) Penicillins Drug Allergy [facility] (13 sources) Sulfanilamide Allergy to substance [facility] (13 sources) Other Propensity to adverse reactions GI intolerance [facility] (1 source) Sulfamethoxazole; Translations: [SULFAMETHOXAZOLE] Drug Allergy [facility] Repository (5 sources) Doxycycline Drug Allergy 025 GI intolerance [facility] Work Phone: Medications Current Medications Medication Drug Class(es) Dates Sig (Normalized) Sig (Original) acetaminophen 325 mg oral tablet (10 sources) take 1-2 tablets by mouth twice daily as needed for pain acetaminophen (Tylenol) 325 MG tablet Take 1-2 tablets by mouth 2 (two) times a day as needed for mild pain Active apixaban 5 mg oral tablet (20 sources) Factor Xa Inhibitor Start: 11-30-2017 End: 04-11-2025 take 1 tablet by mouth twice daily Eliquis 5 mg tablet Indications: Paroxysmal atrial fibrillation (Multi) Take 1 tablet (5 mg) by mouth 2 times a day. 180 tablet 3 04/11/2024 04/11/2025 Active balsalazide disodium 750 mg oral capsule (1 source) Aminosalicylate Start: 07-24-2022 take 3 capsules by mouth every twelve hours Balsalazide Disodium 750 MG 3 capsules Orally Twice a day for 30 day(s) Jun, Active ciprofloxacin 500 mg oral tablet (7 sources) Quinolone Antimicrobial Start: 09-30-2024 take 1 tablet by mouth twice daily ciprofloxacin (Cipro) 500 MG tablet Indications: Diverticulitis, colon 1 po bid until all taken. 14 tablet 09/30/2024 Active Start: 12-13-2021 take 1 tablet by mendoza th every twelve hours Cipro 500 MG 1 tablet Orally every 12 hrs for 7 days PLEASE CHECK ALLERGIES Nov, Not-Taking cloNIDine hydrochloride 0.1 mg oral tablet (18 sources) Central alpha-2 Adrenergic Agonist Start: 07-23-2023 take 1 tablet by mouth every twenty-four hours as needed for hypertension cloNIDine (Catapres) 0.1 MG tablet Take 0.1 mg by mouth Daily as needed for high blood pressure. 07/23/2023 Active Start: 07-23-2023 End: 07-22-2024 take 1 tablet [...] Orally bid for 30 day(s) Nov, Active doxycycline hyclate 100 mg oral capsule (7 sources) Tetracycline -class Drug Start: 09-29-2024 End: 10-06-2024 doxycycline (Vibramycin) 100 MG capsule Indications: Diverticulitis Take 1 capsule (100 mg) by mouth in the morning and 1 capsule (100 mg) before bedtime. Do all this for 7 days. Take with at least 8 ounces (large glass) of water, do not lie down for 30 minutes after. 14 capsule 09/29/2024 10/06/2024 Active Start: 02-20-2018 End: 11-04-2018 take 100 mg by mouth twice daily Doxycycline Hyclate Discontinued 100 MG PO Twice daily 20 February 20, 2018 12:00am November 04, 2018 8:17pm flecainide acetate 50 mg oral tablet (20 sources) Antiarrhythmic Start: 03-15-2023 flecainide (Ta mbocor) 50 mg tablet Indications: Paroxysmal atrial fibrillation (Multi) TAKE 1/2 (ONE-HALF) OF A TABLET BY MOUTH TWICE DAILY 90 tablet 3 03/03/2024 Active Start: 11-30-2017 take 25 mg by mouth twice alesha y Flecainide Active 25 MG PO Twice daily November 30, 2017 1:00am take 1 tablet by mendoza th every twelve hours Flecainide Acetate 50 MG TAKE 1 TABLET BY MOUTH EVERY 12 HOURS Oral for 30 Active furosemide 20 mg oral tablet (19 sources) Loop Diuretic Start: 09-27-2024 take 1 tablet by mouth once daily furosemide (Lasix) 20 MG tablet Indications: Varicose veins of both legs with edema Take 1 tablet (20 mg) by mouth Daily 30 tablet 09/27/2024 Active Start: 04-01-2019 End: 11-10-2020 take 1 tablet by mouth once daily in the morning Furosemide (Lasix) 20 mg tablet Discontinued 20 MG PO Every morning April 01, 2019 12:00am November 10, 2020 6:11pm Start: 02-20-2018 End: 11-04-2018 take 1 tablet by mouth once daily Furosemide (Lasix) 20 mg Tablet Discontinued 20 MG PO Daily February 20, 2018 12:00am November 04, 2018 8:17pm hydrALAZINE hydrochloride 100 mg oral tablet (20 sources) Arteriolar Vasodilator Start: 12-30-2023 take 0.5 tablet by mouth in the morning hydrALAZINE (Apresoline) 100 MG tablet Take 0.5 tablets (50 mg) by mouth in the morning and 0.5 tablets (50 mg) before bedtime. 30 tablet 12/30/2023 Active Start: 07-27-2023 take 100 mg by mouth twice daily Hydralazine Active 100 MG PO Twice daily July 27, 2023 12:14pm Start: 07-23-2023 End: 07-22-2024 take 1 tablet by mouth twice daily hydrALAZINE (Apresoline) 100 mg tablet Indications: Essential hypertension, benign Take 1 tablet (100 mg) by mouth 2 times a day. 180 tablet 3 07/23/2023 07/22/2024 Active Start: 03-19-2023 End: 07-27-2023 take 25 mg by mouth three times daily Hydralazine Discontinued 25 MG PO Three times daily 90 March 19, 2023 10:12pm July 27, 2023 12:14pm Start: 08-20-2021 End: 03-19-2023 take 25 mg by mouth twice daily Hydralazine Discontinu ed 25 MG PO Twice daily March 19, 2023 12:00am March 19, 2023 10:12pm Start: 12-22-2020 End: 07-26-2021 take 50 mg by mouth once daily Hydralazine Discontinue d 50 MG PO Daily December 22, 2020 12:00am July 26, 2021 6:48am sbp greater 160 Start: 01-14-2019 End: 01-17-2019 take 25 mg by mouth twice daily Hydralazine Discontinu ed 25 MG PO Twice daily January 14, 2019 12:00am January 17, 2019 12:36pm hydrALAZINE HCl Active irbesartan 150 mg oral tablet (20 sources) Angiotensin 2 Receptor Troy Start: 01-14-2019 take 1 tablet by mouth every twelve hours irbesartan (Avapro) 150 mg tablet Indications: Essential (primary) hypertension TAKE 1 TABLET BY MOUTH EVERY 12 HOURS 180 tablet 3 03/18/2024 Active Start: 01-14-2019 take 150 mg by mouth twice gogo ly Irbesartan Active 150 MG PO Twice daily January 14, 2019 12:00am take 1 tablet by mendoza th every twelve hours Irbesartan 150 MG Oral Tablet TAKE 1 TABLET Every twelve hours Quantity: 180 Refills: 3 Ordered: 14-Oct-2022 Charmaine Pinedo MD Active Irbesartan Activ e magnesium oxide 400 mg oral tablet (2 sources) Start: 09-18-2023 End: 09-17-2024 take 1 tablet by mouth twice daily magnesium oxide (Mag-Ox) 400 mg (241.3 mg magnesium) tablet Indications: Paroxysmal atrial fibrillation (Multi) Take 1 tablet (400 mg) by mouth 2 times a day. 180 tablet 3 09/18/2023 09/17/2024 Active metroNIDAZOLE 500 mg oral tablet (5 sources) Nitroimidazole Antimicrobial Start: 09-29-2024 End: 10-06-2024 take 1 tablet by mouth in the morning metroNIDAZOLE (Flagyl) 500 MG tablet Indications: Diverticulitis Take 1 tablet (500 mg) by mouth in the morning and 1 tablet (500 mg) before bedtime. Do all this for 7 days. 14 tablet 09/29/2024 10/06/2024 Active Start: 12-13-2021 take 1 tablet by mendoza th every twelve hours metroNIDAZOLE 500 MG 1 tablet Orally Twice a day for 7 days PLEASE CHECK ALLERGIES Nov, Not-Taking Multiple Vitamins-Minerals (Multivitamin Adult, Minerals,) tablet (13 sources) take 1 tablet by mouth once daily Multiple Vitamins-Minerals (Multivitamin Adult, Minerals,) tablet Take 1 tablet by mouth 1 (one) time each day. Active spironolactone 50 mg oral tablet (20 sources) Aldosterone Antagonist Start: 023 take 50 mg by mouth once daily Spironolactone Active 50 MG PO Daily July 27, 2023 12:00am Start: 04-02-2023 take 1 tablet by mendoza th once daily Spironolactone 50 MG Oral Tablet TAKE 1 TABLET BY MOUTH DAILY Quantity: 90 Refills: 3 Ordered: 03-Apr-2023 Charmaine Pinedo MD Start : 02-Apr-2023 Active Start: 11-10-2020 End: 12-22-2020 take 50 mg by mouth once daily Spironolactone Disconti nued 50 MG PO Daily November 10, 2020 1:00am December 22, 2020 9:17am Spironolactone A ctive sucralfate 1000 mg oral tablet (1 source) Aluminum Complex Start: 12-25-2021 take 1 tablet by mouth every twelve hours Sucralfate 1 GM 1 tablet on an empty stomach Orally Twice a day for 30 day(s) Nov, Active Completed/Discontinued Medications Medication Drug Class(es) Dates Sig (Normalized) Sig (Original) [id number] 200 actuat albuterol 0.09 mg/actuat metered dose inhaler (5 sources) beta2-Adrenergic Agonist Start: 02-20-2018 End: 11-04-2018 Albuterol Sulfate Discontinued 2 INH INHALATION Q6H February 20, 2018 12:00am November 04, 2018 8:17pm administer with spacer amLODIPine 5 mg oral tablet (2 sources) Dihydropyridine Calcium Channel Troy take 1 tablet by mouth once daily amLODIPine Besylate 5 MG TAKE 1 TABLET BY MOUTH DAILY Oral for 90 Not-Taking atenolol 25 mg oral tablet (12 sources) beta-Adrenergic Troy Start: 01-14-2019 End: 01-17-2019 take 25 mg by mouth once daily Atenolol Discontinued 25 MG PO daily January 14, 2019 12:00am January 17, 2019 12:36pm Start: 11-30-2017 End: 11-05-2018 Atenolol Discontinued 25 MG PO As Directed November 30, 2017 1:00am November 05, 2018 3:44pm carvedilol 6.25 mg oral tablet (17 sources) alpha-Adrenergic Troy, beta-Adrenergic Troy Start: 01-14-2019 End: 01-17-2019 take 3.125 mg by mouth every twelve hours at mealtime Carvedilol Discontinued 3.125 MG PO Q12H January 14, 2019 6:49pm January 17, 2019 12:36pm must administer with a meal/food Start: 11-05-2018 End: 01-14-2019 take 6.25 mg by mouth every twelve hours at mealtime Carvedilol Discontinued 6.25 MG PO Q12H 60 30 November 05, 2018 1:00am January 14, 2019 6:50pm must administer with a meal/food Start: 11-30-2017 End: 11-05-2018 take 3.125 mg by mouth twice daily Carvedilol Discontinued 3.125 MG PO Twice daily November 30, 2017 1:00am November 05, 2018 3:46pm Carvedilol Not-T aking chlorthalidone 25 mg oral tablet (5 sources) Thiazide-like Diuretic Start: 11-30-2017 End: 02-20-2018 take 25 mg by mouth twice daily Chlorthalidone Discontinued 25 MG PO Twice daily November 30, 2017 1:00am February 20, 2018 12:17pm dicyclomine hydrochloride 10 mg oral capsule (3 sources) Anticholinergic Start: 12-13-2021 take 1 capsule by mouth every twelve hours Dicyclomine HCl 10 MG 1 CAPSULE Orally TWICE A DAY for 30 day(s) PLEASE CHECK ALLERGIES Nov, Not-Taking estrogens, conjugated (group home) 0.625 mg oral tablet (7 sources) Estrogen Start: 11-30-2017 End: 01-14-2019 take 1 tablet by mouth once daily Conjugated Estrogens (Premarin) 0.625 mg Tablet Discontinued 0.625 MG PO Daily November 30, 2017 1:00am January 14, 2019 6:49pm hyoscyamine sulfate 0.125 mg sublingual tablet (18 sources) Start: 04-22-2024 End: 09-27-2024 take 1 tablet by mouth every four hours as needed hyoscyamine (Levsin) 0.125 MG SL tablet Take 0.125 mg by mouth every 4 (four) hours if needed for cramping 04/22/2024 09/27/2024 Discontinued Start: 10-28-2021 take 1 tablet by mendoza th every six hours for pain Hyoscyamine Sulfate 0.125 MG Oral Tablet TAKE 1 TABLET BY MOUTH EVERY 6 HOURS FOR ABDOMINAL pain Quantity: 20 Refills: 0 Ordered: 28-Oct-2021 DO Start : 28-Oct-2021 Active take 1 tablet by mendoza th every six hours Hyoscyamine Sulfate 0.125 MG Oral Tablet Disintegrating TAKE 1 TABLET Every 6 hours Quantity: 0 Refills: 0 Ordered: 04-Mar-2022 DO Active losartan potassium 50 mg oral tablet (7 sources) Angiotensin 2 Receptor Troy Start: 11-30-2017 End: 01-14-2019 take 50 mg by mouth twice daily Losartan Discontinued 50 MG PO Twice daily November 30, 2017 1:00am January 14, 2019 6:49pm NIFEdipine 30 mg osmotic 24 hr extended release oral tablet (5 sources) Dihydropyridine Calcium Channel [place] Start: 01-17-2019 End: 11-10-2020 take 30 mg by mouth once daily Nifedipine Discontinued 30 MG PO Daily January 17, 2019 12:00am November 10, 2020 6:11pm nitrofurantoin, macrocrystals 25 mg / nitrofurantoin, monohydrate 75 mg oral capsule (5 sources) Nitrofuran Antibacterial Start: 12-09-2021 End: 07-27-2023 take 1 capsule by mouth twice daily at mealtime Nitrofurantoin Monohyd/M-Cryst (Macrobid) 100 mg capsule Discontinued 100 MG PO Twice daily 07 02December 09, 2021 12:00am July 27, 2023 12:14pm must administer with a meal/food polysaccharide iron complex 150 mg oral capsule (5 sources) Start: 01-17-2019 End: 11-10-2020 Polysaccharide Iron Complex Discontinued 150 MG PO Every 48 hours January 17, 2019 12:00am November 10, 2020 6:11pm potassium chloride 10 meq extended release oral capsule (10 sources) Start: 04-01-2019 End: 11-10-2020 take 10 mEq by mouth once daily Potassium Chloride Discontinued 10 MEQ PO Daily April 01, 2019 12:00am November 10, 2020 6:11pm Start: 11-30-2017 End: 11-04-2018 take 20 mEq by mouth once daily Potassium Chloride (Klor-Con) 20 mEq Packet Discontinued 20 MEQ PO Daily November 30, 2017 1:00am November 04, 2018 8:17pm psyllium 3400 mg powder for oral suspension (5 sources) Start: 06-06-2022 End: 07-27-2023 Psyllium Husk (Metamucil) 3. 4 gram/5.4 gram powder Discontinued 1 TBSP PO Twice daily June 06, 2022 12:00am July 27, 2023 12:14pm mix into at least 8 oz of water or juice before administering Problems Active Problems Problem Classification Problem Date Documented Da te Episodic/Chronic Cardiac dysrhythmias (20 sources) Paroxysmal atrial fibrillation; Translations: [Atrial fibrillation] Onset: 2018 01-15-2019 Chronic Coagulation and hemorrhagic disorders (2 sources) Thrombophilia; Translations: [Other thrombophilia] 06-27-2024 Chronic Conduction disorders (20 sources) EKG: right bundle branch block; Translations: [Right bundle branch block] Onset: 07-09-2023 07-09-2023 Chronic Coronary atherosclerosis and other heart disease (20 sources) Angina pectoris; Translations: [Angina pectoris, unspecified] Onset: 12-08-2023 01-16-2019 Chronic Diverticulosis and diverticulitis (20 sources) Diverticulitis of colon; Translations: [Diverticulitis of colon (without mention of hemorrhage)] Onset: 10-29-2021 Chronic Essential hypertension (20 sources) Essential (primary) hypertension; Translations: [Benign essential hypertension] Onset: 11-24-2018 04-01-2019 Chronic Mycoses (2 sources) Onychomycosis; Translations: [Tinea unguium] 07-27-2024 Episodic Osteoarthritis (13 sources) Osteoarthritis; Translations: [Unspecified osteoarthritis, unspecified site] Onset: 03-04-2023 03-04-2023 Chronic Other aftercare (10 sources) Long-term current use of anticoagulant; Translations: [Long-term (current) use of anticoagulants] Episodic Other aftercare (1 source) 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; Translations: [OTH POWDER EXPERT CURRENT DRUG THERAPY] Onset: 09-30-2022 Episodic Other circulatory disease (2 sources) Stricture of artery; Translations: [Stricture of artery] 06-27-2024 Chronic Other connective tissue disease (2 sources) Pain in both feet; Translations: [Pain in right foot] 07-27-2024 Episodic Other connective tissue disease (4 sources) Trochanteric bursitis of left hip; Translations: [Trochanteric bursitis, left hip] 09-26-2024 Episodic Other connective tissue disease (2 sources) Swelling of left lower limb; Translations: [Other specified soft tissue disorders] 09-26-2024 Episodic Other connective tissue disease (2 sources) Pain of left calf; Translations: [Pain in left lower leg] 09-26-2024 Episodic Other gastrointestinal disorders (13 sources) Irritable bowel syndrome; Translations: [Irritable bowel syndrome without diarrhea] Onset: 03-04-2023 03-04-2023 Chronic Other gastrointestinal disorders (2 sources) Constipation alternates with diarrhea; Translations: [Other specified symptoms and signs involving the digestive system and abdomen] Episodic Other gastrointestinal disorders (1 source) Other specified symptoms and signs involving the digestive system and abdomen Episodic Other nervous system disorders (13 sources) Neuropathy; Translations: [Polyneuropathy, unspecified] Onset: 03-04-2023 03-04-2023 Chronic Other non-traumatic joint disorders (13 sources) Rotator cuff arthropathy of right shoulder; Translations: [Other specific arthropathies, not elsewhere classified, right shoulder] Onset: 03-04-2023 03-04-2023 Chronic Other non-traumatic joint disorders (4 sources) Hip pain; Translations: [Pain in left hip] 09-26-2024 Episodic Other nutritional; endocrine; and metabolic disorders (3 sources) Body mass index 30+ - obesity; Translations: [Body Mass Index 35.0-35.9, adult] Onset: 04-13-2024 04-13-2024 Chronic Other nutritional; endocrine; and metabolic disorders (1 source) Simple obesity ; Translations: [Obesity, unspecified] Chronic Other nutritional; endocrine; and metabolic disorders (5 sources) Obese class II; Translations: [Body mass index (BMI) 37.0-37.9, adult] 09-18-2023 Chronic Other nutritional; endocrine; and metabolic disorders (2 sources) Body mass index (BMI) 34.0-34.9, adult; Translations: [Body mass index (BMI) 34.0-34.9, adult] Onset: 04-13-2024 Chronic Other skin disorders (2 sources) Dystrophia unguium; Translations: [Nail dystrophy] 07-27-2024 Episodic Retinal detachments; defects; vascular occlusion; and retinopathy (1 source) Retinal ischemia; 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] Onset: 01-26-2024 Chronic Unclassified (3 sources) Other correction (current) drug therapy; Translations: [Other correction (current) drug therapy] Onset: 2018 Viral infection (4 sources) COVID-19; Translations: [COVID-19] Onset: 09-06-2022 Past or Other Problems Problem Classification Problem Date Documented Da te Episodic/Chronic Abdominal pain (20 sources) Abdominal pain; Translations: [Unspecified abdominal pain] Onset: 10-26-2021 12-08-2017 Episodic Cardiac dysrhythmias (20 sources) Palpitations; Translations: [Palpitations] Onset: 09-01-2023 07-26-2021 Episodic Conditions associated with dizziness or vertigo (18 sources) Dizziness; Translations: [Dizziness and giddiness] Onset: 12-08-2023 01-14-2019 Episodic Deficiency and other anemia (1 source) Microcytic anemia; Translations: [Iron deficiency anemia, unspecified] 04-13-2024 Episodic Deficiency and other anemia (1 source) Anemia; Translations: [Anemia, unspecified] Onset: 04-13-2024 04-13-2024 Episodic Deficiency and other anemia (2 sources) Anemia, unspecified; Translations: [Anemia, unspecified] Onset: 04-13-2024 Episodic E Codes: Natural/environment (1 source) Bitten by cat, initial encounter; Translations: [BITTEN BY CAT INITIAL ENCOUNTER] Onset: 01-16-2022 Episodic Immunizations and screening for infectious disease (1 source) Encounter for immunization; Translations: [ENCOUNTER FOR IMMUNIZATION] Onset: 01-16-2022 Episodic Mood disorders (13 sources) Mood disorders Onset: 02-01-2024 02-01-2024 Nonspecific chest pain (20 sources) Chest pain; Translations: [Chest pain, unspecified] Onset: 07-27-2023 01-15-2019 Episodic Open wounds of extremities (4 sources) Open bite of left hand, initial encounter; Translations: [OPEN BITE LEFT HAND INITIAL ENC] Onset: 01-14-2022 Episodic Other aftercare (20 sources) Drug therapy finding; Translations: [Long-term (current) use of other medications] Onset: 07-09-2023 07-09-2023 Episodic Other aftercare (3 sources) long term (current) use of anticoagulants; Translations: [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] Onset: 12-18-2021 Episodic Other aftercare (2 sources) Taking high risk medication; Translations: [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] 09-18-2023 Episodic Other circulatory disease (18 sources) Elevated blood pressure; Translations: [Elevated blood-pressure reading, without diagnosis of hypertension] Onset: 12-08-2023 12-22-2020 Episodic Other circulatory disease (18 sources) H/O: atrial fibrillation; Translations: [Personal history of other diseases of the circulatory system] Onset: 12-08-2023 04-01-2019 Episodic Other gastrointestinal disorders (18 sources) Constipation; Translations: [Constipation, unspecified] Onset: 03-04-2023 06-06-2022 Episodic Other gastrointestinal disorders (4 sources) Diarrhea, unspecified; Translations: [DIARRHEA UNSPECIFIED] Onset: 12-16-2021 Episodic Other lower respiratory disease (18 sources) Dyspnea on exertion; Translations: [Other forms of dyspnea] Onset: 12-08-2023 01-14-2019 Episodic Other nutritional; endocrine; and metabolic disorders (13 sources) Obesity; Translations: [Obesity, unspecified] Onset: 07-09-2023 Resolved: 09-18-2023 07-09-2023 Chronic Other upper respiratory disease (13 sources) Feeling of lump in throat; Translations: [Globus sensation] Onset: 03-04-2023 03-04-2023 Episodic Residual codes; unclassified (18 sources) Bilateral lower limb edema; Translations: [Localized edema] Onset: 12-08-2023 04-01-2019 Episodic Residual codes; unclassified (4 sources) Never smoked any substance; Translations: [Other specified health status] Onset: 09-18-2023 09-18-2023 Episodic Residual codes; unclassified (2 sources) Other specified health status; Translations: [Other specified health status] Onset: 09-18-2023 Episodic Skin and subcutaneous tissue infections (1 source) Cellulitis of left upper limb; Translations: [CELLULITIS OF LEFT UPPER LIMB] Onset: 01-16-2022 Episodic Unclassified (10 sources) Never smoked tobacco; Translations: [Never a smoker] Unclassified (15 sources) Onset: 09-18-2023 Resolved: 09-07-2024 09-18-2023 Urinary tract infections (18 sources) Cystitis; Translations: [Cystitis, unspecified without hematuria] Onset: 12-08-2023 12-09-2021 Episodic Varicose veins of lower extremity (15 sources) 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 Mild small enthesophyte at greater trochanter. Impression: no acute bony process left hip. [facility] US.doppler Lower extremity v ein - lefton 09-26-2024 TITLE OF EXAM: [facility] US LOWER EXTREMITY VENOUS DUPLEX LEFT REASON FOR EXAM: Left lower extremity pain TECHNIQUE: Grayscale, color, and spectral Doppler ultrasound evaluation of the veins of the left lower extremity. COMPARISON: None. FINDINGS: The left common femoral, superficial femoral, and popliteal veins are compressible with normal flow on color Doppler and normal respiratory variation and augmentation on pulsed Doppler. There is also normal Doppler flow and compressibility of the profunda femoris and great saphenous veins at the confluence with the common femoral vein. The evaluated portions of the great saphenous vein are compressible and demonstrate color flow. The left posterior tibial and peroneal veins are compressible. IMPRESSION: No evidence of deep venous thrombosis in the left lower extremity. DICTATED ON: 09/26/2024 2:27 PM This report has been electronically signed in approved by the interpreting radiologist. Austin Bryant MD - 09/26/2024 TITLE OF EXAM: [facility] US LOWER EXTREMITY VENOUS DUPLEX LEFT REASON FOR EXAM: Left lower extremity pain TECHNIQUE: Grayscale, color, and spectral Doppler ultrasound evaluation of the veins of the left lower extremity. COMPARISON: None. FINDINGS: The left common femoral, superficial femoral, and popliteal veins are compressible with normal flow on color Doppler and normal respiratory variation and augmentation on pulsed Doppler. There is also normal Doppler flow and compressibility of the profunda femoris and great saphenous veins at the confluence with the common femoral vein. The evaluated portions of the great saphenous vein are compressible and demonstrate color flow. The left posterior tibial and peroneal veins are compressible. IMPRESSION: No evidence of deep venous thrombosis in the left lower extremity. DICTATED ON: 09/26/2024 2:27 PM This report has been electronically signed in approved by the interpreting radiologist. [facility] Radiology Study observation (narrative) [facility] US.doppler Lower extremity v ein - leftOrdered By: Austin Dunbar on 09-26-2024 [facility] Work Phone: [facility] US LOWER EXTREMITY VENO US DUPLEX LEFTon 09-26-2024 [facility] US LOWER EXTREMITY VENOUS DUPLEX LEFT TITLE OF EXAM: [facility] US LOWER EXTREMITY VENOUS DUPLEX LEFT REASON FOR EXAM: Left lower extremity pain TECHNIQUE: Grayscale, color, and spectral Doppler ultrasound evaluation of the veins of the left lower extremity. COMPARISON: None. FINDINGS: The left common femoral, superficial femoral, and popliteal veins are compressible with normal flow on color Doppler and normal respiratory variation and augmentation on pulsed Doppler. There is also normal Doppler flow and compressibility of the profunda femoris and great saphenous veins at the confluence with the common femoral vein. The evaluated portions of the great saphenous vein are compressible and demonstrate color flow. The left posterior tibial and peroneal veins are compressible. IMPRESSION: No evidence of deep venous thrombosis in the left lower extremity. DICTATED ON: 09/26/2024 2:27 PM This report has been electronically signed in approved by the interpreting radiologist. Normal Not Available XR Hip - left 3 [facility] 08-30 Radiology Study observation (narrative) [facility] ECG 12 [place] 04-13-2024 ECG revealed normal sinus rhythm with right bundle branch block [facility] Work Phone: ECG 12 [place] 09-18-2023 ECG revealed normal sinus rhythm with right bundle branch block [facility] Work Phone: Activated partial thrombopla stin time (aPTT) in platelet poor plasma by coagulation aOrdered By: Natalie Brian on 09-01-2023 aPTT Coag (PPP) [Time] 38.3 s 25.1-36.5 [place] Comment on above: A hematocrit value g reater than 55% may lead to inaccurate results in coagulation testing. Patients having hematocrit values >55% require a special collection tube for coagulation studies. Please contact the laboratory at [phone] for redraw instructions. B-Type Natriuretic Peptideon 09-01-2023 Natriuretic peptide B (Bld) [Mass/Vol] 126.0 pg/mL High 5-100 [facility] Comment on above: Result Comment: PERF ORMED BY: [facility] [address] [place] [address] PATHOLOGIST SECURITY SITE SUPERVISOR ROWAN IRWIN M.D. Performed By: #### C K, CBC, PTT, HS TROP, BMP, BNP, PT ####[facility] [address] [place] [address] [facility] Basic Metabolic Panelon Anion gap [Moles/Vol] 11.0 mmol/L Normal 6.0-15.0 [place] Comment on above: Performed By: #### C K, CBC, PTT, HS TROP, BMP, BNP, PT ####[facility] [address] [place] [address] [facility] Calcium [Mass/Vol] 9.1 mg/dL Normal 8.6-10.3 [facility] Comment on above: Performed By: #### C K, CBC, PTT, HS TROP, BMP, BNP, PT ####[place] [address] [address] Chloride [Moles/Vol] 107 mmol/L Normal 98-107 [facility] Comment on above: Performed By: #### C K, CBC, PTT, HS TROP, BMP, BNP, PT ####[address] CO2 [Moles/Vol] 24.0 mmol/L Normal 21.0-31.0 [facility] Comment on above: Performed By: #### C K, CBC, PTT, HS TROP, BMP, BNP, PT ####[address] Creatinine [Mass/Vol] 0.93 mg/dL Normal 0.60-1.20 [facility] Comment on above: Performed By: #### C K, CBC, PTT, HS TROP, BMP, BNP, PT ####[address] Creatinine Clr Calc Pharmacy 50.24 [facility] Comment on above: Result Comment: PERF ORMED BY: [facility] [address] [place] [address] PATHOLOGIST SECURITY SITE SUPERVISOR ROWAN IRWIN M.D. Performed By: #### C K, CBC, PTT, HS TROP, BMP, BNP, PT ####[address] GFR/1.73 sq M.predicted MDRD (S/P/Bld) [Vol rate/Area] mL/min/{1.73_m2} [facility] Comment on above: Performed By: #### C K, CBC, PTT, HS TROP, BMP, BNP, PT ####[place] [address] [address] Glucose [Mass/Vol] 146 mg/dL High 70-100 [facility] Comment on above: Result Comment: [place] Glucose Reference Range is dependent on time and content of last meal. Glucose of more than 200 mg/dL in a nonstressed, ambulatory subject supports the diagnosis of Diabetes Mellitus. ADA recommended reference range Performed By: #### C K, CBC, PTT, HS TROP, BMP, BNP, PT ####[facility] Potassium [Moles/Vol] 4.0 mmol/L Normal 3.5-5.1 [facility] Comment on above: Performed By: #### C K, CBC, PTT, HS TROP, BMP, BNP, PT ####[facility] [place] [address] [facility] Sodium [Moles/Vol] 138 mmol/L Normal 136-145 [facility] Comment on above: Performed By: #### C K, CBC, PTT, HS TROP, BMP, BNP, PT ####[facility] [place] [id number] [facility] Urea nitrogen [Mass/Vol] 17 mg/dL Normal 7-25 [facility] Comment on above: Performed By: #### C K, CBC, PTT, HS TROP, BMP, BNP, PT ####[facility] [place] [id number] [facility] Basophils Auto (Bld) [#/Vol] Ordered By: PROVIDER TEMP on 09-01-2023 Basophils (Bld) [#/Vol] 0.1 10*3/uL 0.0-0.2 [facility] Basophils/100 WBC Auto (Bld) Ordered By: PROVIDER TEMP on 09-01-2023 Basophils/100 WBC (Bld) 0.8 % . [facility] Calcium [Mass/volume] in Ser um or PlasmaOrdered By: Natalie Brian on 09-01-2023 Calcium [Mass/Vol] 9.1 mg/dL 8.6-10.3 [facility] Carbon dioxide, total [Moles /volume] in Serum or PlasmaOrdered By: Natalie Brian on 09-01-2023 CO2 [Moles/Vol] 24.0 mmol/L 21.0-31.0 [facility] Chloride [Moles/volume] in S marylou or PlasmaOrdered By: Natalie Brian on 09-01-2023 Chloride [Moles/Vol] 107 mmol/L 98-107 [facility] Complete Blood Count Auto Di ffon 09-01-2023 Basophils (Bld) [#/Vol] 0.1 10*3/uL Normal 0.0-0.2 [facility] Comment on above: Result Comment: PERF ORMED BY: [facility] [address] [place] [address] PATHOLOGIST SECURITY SITE SUPERVISOR ROWAN IRWIN M.D. Performed By: #### C K, CBC, PTT, HS TROP, BMP, BNP, PT ####[address] Basophils/100 WBC (Bld) 0.8 % Normal . [facility] Comment on above: Performed By: #### C K, CBC, PTT, HS TROP, BMP, BNP, PT ####[address] Eosinophils (Bld) [#/Vol] 0.0 10*3/uL Normal 0.0-0.45 [facility] Comment on above: Performed By: #### C K, CBC, PTT, HS TROP, BMP, BNP, PT ####[address] Eosinophils/100 WBC (Bld) 0.4 % Normal . [facility] Comment on above: Performed By: #### C K, CBC, PTT, HS TROP, BMP, BNP, PT ####[address] Erythrocyte distribution width (RBC) [Ratio] 18.0 % High 11.9-15.3 [facility] Comment on above: Performed By: #### C K, CBC, PTT, HS TROP, BMP, BNP, PT ####[address] Hematocrit (Bld) [Volume fraction] 32.5 % Low 34.0-46.4 [facility] Comment on above: Performed By: #### C K, CBC, PTT, HS TROP, BMP, BNP, PT ####[address] Hemoglobin (Bld) [Mass/Vol] 10.3 g/dL Low 11.8-15.4 [facility] Comment on above: Performed By: #### C K, CBC, PTT, HS TROP, BMP, BNP, PT ####[address] Lymphocytes (Bld) [#/Vol] 0.6 10*3/uL Low 1.00-4.8 [facility] Comment on above: Performed By: #### C K, CBC, PTT, HS TROP, BMP, BNP, PT ####[address] Lymphocytes/100 WBC (Bld) 6.4 % Normal . [facility] Comment on above: Performed By: #### C K, CBC, PTT, HS TROP, BMP, BNP, PT ####[address] MCH (RBC) [Entitic mass] 23.7 pg Low 24.7-34.3 [facility] Comment on above: Performed By: #### C K, CBC, PTT, HS TROP, BMP, BNP, PT ####[address] MCV (RBC) [Entitic vol] 74.6 fL Low 80-100 [facility] Comment on above: Performed By: #### C K, CBC, PTT, HS TROP, BMP, BNP, PT ####[address] Mean Corpuscular HGB Conc 31.8 g/dL Low 32.0-35.0 [facility] Comment on above: Performed By: #### C K, CBC, PTT, HS TROP, BMP, BNP, PT ####[address] Monocytes (Bld) [#/Vol] 0.6 10*3/uL Normal 0.0-0.8 [facility] Comment on above: Performed By: #### C K, CBC, PTT, HS TROP, BMP, BNP, PT ####[address] Monocytes/100 WBC (Bld) 17.29 % Normal 0.00-20.00 [facility] Comment on above: Performed By: #### C K, CBC, PTT, HS TROP, BMP, BNP, PT ####[address] Monocytes/100 WBC (Bld) 6.0 % Normal . [facility] Comment on above: Performed By: #### C K, CBC, PTT, HS TROP, BMP, BNP, PT ####[address] Neutrophils (Bld) [#/Vol] 8.1 10*3/uL High 1.8-7.7 [facility] Comment on above: Performed By: #### C K, CBC, PTT, HS TROP, BMP, BNP, PT ####[address] Neutrophils/100 WBC (Bld) 86.4 % Normal . [facility] Comment on above: Performed By: #### C K, CBC, PTT, HS TROP, BMP, BNP, PT ####[address] NRBC% 0.1 /100{WBC} Normal 0-0.5 [facility] Comment on above: Performed By: #### C K, CBC, PTT, HS TROP, BMP, BNP, PT ####[address] Platelet mean volume (Bld) [Entitic vol] 8.1 fL Normal 6.3-10.7 [facility] Comment on above: Performed By: #### C K, CBC, PTT, HS TROP, BMP, BNP, PT ####[address] Platelets (Bld) [#/Vol] 317 10*3/uL Normal 150-450 [facility] Comment on above: Performed By: #### C K, CBC, PTT, HS TROP, BMP, BNP, PT ####[facility] RBC (Bld) [#/Vol] 4.36 10*6/uL Normal 3.60-5.00 [facility] Comment on above: Performed By: #### C K, CBC, PTT, HS TROP, BMP, BNP, PT ####[facility] [place] [id number] [facility] WBC (Bld) [#/Vol] 9.4 10*3/uL Normal 3.8-11.6 [facility] Comment on above: Performed By: #### C K, CBC, PTT, HS TROP, BMP, BNP, PT ####[facility] Creatine Kinaseon 09-01-2023 CK [Catalytic activity/Vol] 80 U/L Normal 30-223 [facility] Comment on above: Performed By: #### C K, CBC, PTT, HS TROP, BMP, BNP, PT ####[place] [address] [address] Creatine kinase [Enzymatic a ctivity/volume] in Serum or PlasmaOrdered By: Natalie Brian on 09-01-2023 CK [Catalytic activity/Vol] 80 U/L 30-223 [facility] Creatinine [Mass/volume] in Serum or PlasmaOrdered By: Natalie Brian on 09-01-2023 Creatinine [Mass/Vol] 0.93 mg/dL 0.60-1.20 [facility] ECG 12 lead ECGon 09-01-2023 ECG 12 lead ECG [facility] [address] [place] [address] [place] [address] Electrocardiograph Report Signed Patient: Jessy Dow MR#: [id number] 76 : 1940 Acct:[id number] Age/Sex: 83 / F ADM Date: 09/01/23 Loc: ER Room: Type: [facility] ER Attending Dr: Ordering Provider: Natalie Brian [...] now present Confirmed by NATALIE BRIAN DO ([id number]) on 09/01/2023 11:31:37 AM Referred By: Electronically Signed By:NATALIE BRIAN DO Transcribed By: MUS Signed By Natalie Brian DO 09/01 1131 Normal [facility] Eosinophils Auto (Bld) [#/Vo l]Ordered By: PROVIDER TEMP on 09-01-2023 Eosinophils (Bld) [#/Vol] 0.0 10*3/uL 0.0-0.45 [facility] Eosinophils/100 WBC Auto (Bl d)Ordered By: PROVIDER TEMP on 09-01-2023 Eosinophils/100 WBC (Bld) 0.4 % . [facility] Erythrocyte distribution wid th Auto (RBC) [Ratio]Ordered By: PROVIDER TEMP on 09-01-2023 Erythrocyte distribution width (RBC) [Ratio] 18.0 % 11.9-15.3 [facility] Glucose [Mass/volume] in Ser um or PlasmaOrdered By: Natalie Brian on 09-01-2023 Glucose [Mass/Vol] 146 mg/dL 70-100 [facility] Comment on above: ADA recommended refe rence rangeRandom Glucose Reference Range is dependent on time and content of last meal. Glucose of more than 200 mg/dL in a nonstressed, ambulatory subject supports the diagnosis of Diabetes Mellitus. Hematocrit Auto (Bld) [Volum e fraction]Ordered By: PROVIDER TEMP on 09-01-2023 Hematocrit (Bld) [Volume fraction] 32.5 % 34.0-46.4 [facility] Hemoglobin [Mass/volume] in BloodOrdered By: PROVIDER TEMP on 09-01-2023 Hemoglobin (Bld) [Mass/Vol] 10.3 g/dL 11.8-15.4 [facility] INR in Platelet poor plasma by Coagulation assayOrdered By: Natalie Brian on 09-01-2023 INR Coag (PPP) [Relative time] 1.6 {INR} [facility] Comment on above: INR Therapeutic Rang e [...] RBC Auto (Bld) [#/Vol] 9.4 10*3/uL 3.8-11.6 [facility] Lymphocytes Auto (Bld) [#/Vo l]Ordered By: PROVIDER TEMP on 09-01-2023 Lymphocytes (Bld) [#/Vol] 0.6 10*3/uL 1.00-4.8 [facility] Lymphocytes/100 WBC Auto (Bl d)Ordered By: PROVIDER TEMP on 09-01-2023 Lymphocytes/100 WBC (Bld) 6.4 % . [facility] MCH Auto (RBC) [Entitic mass ]Ordered By: PROVIDER TEMP on 09-01-2023 MCH (RBC) [Entitic mass] 23.7 pg 24.7-34.3 [facility] MCHC Auto (RBC) [Mass/Vol]Or dered By: PROVIDER TEMP on 09-01-2023 MCHC (RBC) [Mass/Vol] 31.8 g/dL 32.0-35.0 [facility] MCV Auto (RBC) [Entitic vol] Ordered By: PROVIDER TEMP on 09-01-2023 MCV (RBC) [Entitic vol] 74.6 fL 80-100 [facility] Monocyte distribution width [Entitic volume] in Blood by AutomatedOrdered By: PROVIDER TEMP on 09-01-2023 Monocyte distribution width Auto (Bld) [Entitic vol] 17.29 % 0.00-20.00 [facility] Monocytes Auto (Bld) [#/Vol] Ordered By: PROVIDER TEMP on 09-01-2023 Monocytes (Bld) [#/Vol] 0.6 10*3/uL 0.0-0.8 [facility] Monocytes/100 WBC Auto (Bld) Ordered By: PROVIDER TEMP on 09-01-2023 Monocytes/100 WBC (Bld) 6.0 % . [facility] Natriuretic peptide B [Mass/ Vol]Ordered By: Natalie Brian on 09-01-2023 Natriuretic peptide B (Bld) [Mass/Vol] 126.0 pg/mL 5-100 [facility] Neutrophils Auto (Bld) [#/Vo l]Ordered By: PROVIDER TEMP on 09-01-2023 Neutrophils (Bld) [#/Vol] 8.1 10*3/uL 1.8-7.7 [facility] Neutrophils/100 WBC Auto (Bl d)Ordered By: PROVIDER TEMP on 09-01-2023 Neutrophils/100 WBC (Bld) 86.4 % . [facility] No Panel InformationOrdered By: Natalie Brian on 09-01-2023 Estimated GFR (CKD-EPI) > 60.0 mL/Min [facility] Creatinine Clearance (Chem 50.24 [facility] Nucleated erythrocytes [Pres ence] in Blood by Automated countOrdered By: PROVIDER TEMP on 09-01-2023 Nucleated RBC Auto Ql (Bld) 0.1 /100{WBC} 0-0.5 [facility] Partial Thromboplastin Timeo n 09-01-2023 aPTT Coag (Bld) [Time] 38.3 s High 25.1-36.5 [place] Comment on above: Result Comment: A he matocrit value greater than 55% may lead to inaccurate results in coagulation testing. Patients having hematocrit values >55% require a special collection tube for coagulation studies. Please contact the laboratory at [phone] for redraw instructions. PERFORMED BY: [facility] [place] [address] PATHOLOGIST SECURITY SITE SUPERVISOR ROWAN IRWIN M.D. Performed By: #### C K, CBC, PTT, HS TROP, BMP, BNP, PT ####[facility] [place] [id number] [facility] Platelet mean volume Auto (B ld) [Entitic vol]Ordered By: PROVIDER TEMP on 09-01-2023 Platelet mean volume (Bld) [Entitic vol] 8.1 fL 6.3-10.7 [facility] Platelets Auto (Bld) [#/Vol] Ordered By: PROVIDER TEMP on 09-01-2023 Platelets (Bld) [#/Vol] 317 10*3/uL 150-450 [facility] Potassium [Moles/volume] in Serum or PlasmaOrdered By: Natalie Brian on 09-01-2023 Potassium [Moles/Vol] 4.0 mmol/L 3.5-5.1 [facility] Prothrombin Time INRon 09-01 INR Coag (PPP) [Relative time] 1.6 {INR} Normal [facility] Comment on above: Result Comment: INR Therapeutic [...] CBC, PTT, HS TROP, BMP, BNP, PT ####[place] [address] [place] [id number] [facility] PT Coag (PPP) [Time] 18.4 s High 9.0-12.9 [facility] Comment on above: Result Comment: A he matocrit value greater than 55% may lead to inaccurate results in coagulation testing. Patients having hematocrit values >55% require a special collection tube for coagulation studies. Please contact the laboratory at [phone] for redraw instructions. Performed By: #### C K, CBC, PTT, HS TROP, BMP, BNP, PT ####[place] [address] [place] [id number] [facility] Prothrombin time (PT)Ordered By: Natalie Brian on 09-01-2023 PT Coag (PPP) [Time] 18.4 s 9.0-12.9 [facility] Comment on above: A hematocrit value g reater than 55% may lead to inaccurate results in coagulation testing. Patients having hematocrit values >55% require a special collection tube for coagulation studies. Please contact the laboratory at [phone] for redraw instructions. RBC Auto (Bld) [#/Vol]Ordere d By: PROVIDER TEMP on 09-01-2023 RBC (Bld) [#/Vol] 4.36 10*6/uL 3.60-5.00 [facility] Serum or plasma anion gap de terminationOrdered By: Natalie Brian on 09-01-2023 Anion gap [Moles/Vol] 11.0 mmol/L 6.0-15.0 [place] Sodium [Moles/volume] in Ser um or PlasmaOrdered By: Natalie Brian on 09-01-2023 Sodium [Moles/Vol] 138 mmol/L 136-145 [facility] Troponin I High Sensitivityo n 09-01-2023 Troponin I High Sensitivity 5.2 pg/mL Normal 0.0-15.0 [facility] Comment on above: Result Comment: PERF ORMED BY: [facility] [address] [place] [address] PATHOLOGIST SECURITY SITE SUPERVISOR ROWAN IRWIN M.D. Performed By: #### C K, CBC, PTT, HS TROP, BMP, BNP, PT ####[facility] [id number] [place] [id number] [facility] Troponin I.cardiac [Mass/vol ume] in Serum or Plasma by Detection limit <= 0.01 ng/Ordered By: Natalie Brian on 09-01-2023 Troponin I.cardiac DL <= 0.01 ng/mL [Mass/Vol] 5.2 pg/mL 0.0-15.0 [facility] Urea nitrogen [Mass/volume] in Serum or PlasmaOrdered By: Natalie Brian on 09-01-2023 Urea nitrogen [Mass/Vol] 17 mg/dL 7-25 [facility] WBC Auto (Bld) [#/Vol]Ordere d By: PROVIDER TEMP on 09-01-2023 WBC (Bld) [#/Vol] 9.4 10*3/uL 3.8-11.6 [facility] XR chest 2V*on 09-01-2023 XR chest 2V* [facility] [place] [address] [place] [address] XRay Report Signed Patient: Jessy Dow MR#: [id number] [birth year] : 1940 Acct:[id number] Age/Sex: 83 / F ADM Date: 09/01/23 Loc: ER Room: Type: [facility] ER Attending Dr: Copies to: Natalie Brian [...] Devin Diallo M.D.09/01/2023 10:19 AM Dictation Location: [place] [address] Transcribed By: [facility] 09/01/23 1019 Dictated By: Devin Diallo II, MD 09/01/23 1002 Signed By: 09/01/23 1019 Normal [facility] Activated partial thrombopla stin time (aPTT) in platelet poor plasma by coagulation aOrdered By: Natalie Brian on 07-27-2023 aPTT Coag (PPP) [Time] 35.2 s 25.1-36.5 [place] Comment on above: A hematocrit value g reater than 55% may lead to inaccurate results in coagulation testing. Patients having hematocrit values >55% require a special collection tube for coagulation studies. Please contact the laboratory at [phone] for redraw instructions. Alanine aminotransferase [En zymatic activity/volume] in Serum or PlasmaOrdered By: Natalie Brian on 07-27-2023 ALT [Catalytic activity/Vol] 11 U/L 7-52 [facility] Albumin [Mass/volume] in Ser um or Plasma by Bromocresol green (BCG) dye binding methoOrdered By: Natalie Brian on 07-27-2023 Albumin BCG dye [Mass/Vol] 3.7 g/dL 3.5-5.7 [facility] Alkaline phosphatase [Enzyma tic activity/volume] in Serum or PlasmaOrdered By: Natalie Brian on 07-27-2023 ALP [Catalytic activity/Vol] 94 U/L 34-104 [facility] Aspartate aminotransferase [ Enzymatic activity/volume] in Serum or PlasmaOrdered By: Natalie Brian on 07-27-2023 AST [Catalytic activity/Vol] 15 U/L 13-39 [facility] B-Type Natriuretic Peptideon 07-27-2023 Natriuretic peptide B (Bld) [Mass/Vol] 92.0 pg/mL Normal 5-100 [facility] Comment on above: Result Comment: PERF ORMED BY: [facility] [address] [place] [address] PATHOLOGIST SECURITY SITE SUPERVISOR ROWAN IRWIN M.D. Performed By: #### C MP, PT, CK, BNP, CBC, HS TROP, PTT, LIPASE ####[facility] [id number] Basophils Auto (Bld) [#/Vol] Ordered By: Natalie Brian on 07-27-2023 Basophils (Bld) [#/Vol] 0.1 10*3/uL 0.0-0.2 [facility] Basophils/100 WBC Auto (Bld) Ordered By: Natalie Brian on 07-27-2023 Basophils/100 WBC (Bld) 0.8 % . [facility] Bilirubin Test strip Ql (U)O rdered By: Natalie Brian on 07-27-2023 Bilirubin Ql (U) Negative Negative [facility] Bilirubin.total [Mass/volume ] in Serum or PlasmaOrdered By: Natalie Brian on 07-27-2023 Bilirubin [Mass/Vol] 0.4 mg/dL 0.3-1.0 [facility] CT abdomen pelvis wo conon 1 CT abdomen pelvis wo con [facility] [place] [address] [place] [address] CT Scan Report Signed Patient: Jessy Dow MR#: [id number] [birth year] : 1940 Acct:[id number] Age/Sex: 83 / F ADM Date: 07/27/23 Loc: ER Room: Type: [facility] ER Attending Dr: Copies to: Natalie Brian [...] Devin Diallo M.D.07/27/2023 1:12 PM Dictation Location: [facility]--13 Transcribed By: STEPHON 07/27/23 1312 Dictated By: Devin Diallo II, MD 07/27/23 1302 Signed By: 07/27/23 1312 Normal [facility] Calcium [Mass/volume] in Ser um or PlasmaOrdered By: Natalie Brian on 07-27-2023 Calcium [Mass/Vol] 8.9 mg/dL 8.6-10.3 [facility] Carbon dioxide, total [Moles /volume] in Serum or PlasmaOrdered By: Natalie Brian on 07-27-2023 CO2 [Moles/Vol] 23.7 mmol/L 21.0-31.0 [facility] Chloride [Moles/volume] in S marylou or PlasmaOrdered By: Natalie Brian on 07-27-2023 Chloride [Moles/Vol] 106 mmol/L 98-107 [facility] Color Auto (U)Ordered By: Honorio Brian on 07-27-2023 Color (U) Yellow Yellow [facility] Complete Blood Count Auto Di ffon 07-27-2023 Basophils (Bld) [#/Vol] 0.1 10*3/uL Normal 0.0-0.2 [facility] Comment on above: Result Comment: PERF ORMED BY: [facility] [address] [place] [address] PATHOLOGIST SECURITY SITE SUPERVISOR ROWAN IRWIN M.D. Performed By: #### C MP, PT, CK, BNP, CBC, HS TROP, PTT, LIPASE ####[facility] [id number] Basophils/100 WBC (Bld) 0.8 % Normal . [facility] Comment on above: Performed By: #### C MP, PT, CK, BNP, CBC, HS TROP, PTT, LIPASE ####[facility] [id number] Eosinophils (Bld) [#/Vol] 0.0 10*3/uL Normal 0.0-0.45 [facility] Comment on above: Performed By: #### C MP, PT, CK, BNP, CBC, HS TROP, PTT, LIPASE ####[address] Eosinophils/100 WBC (Bld) 0.5 % Normal . [facility] Comment on above: Performed By: #### C MP, PT, CK, BNP, CBC, HS TROP, PTT, LIPASE ####[address] Erythrocyte distribution width (RBC) [Ratio] 18.4 % High 11.9-15.3 [facility] Comment on above: Performed By: #### C MP, PT, CK, BNP, CBC, HS TROP, PTT, LIPASE ####[address] Hematocrit (Bld) [Volume fraction] 33.1 % Low 34.0-46.4 [facility] Comment on above: Performed By: #### C MP, PT, CK, BNP, CBC, HS TROP, PTT, LIPASE ####[address] Hemoglobin (Bld) [Mass/Vol] 10.6 g/dL Low 11.8-15.4 [facility] Comment on above: Performed By: #### C MP, PT, CK, BNP, CBC, HS TROP, PTT, LIPASE ####[address] Lymphocytes (Bld) [#/Vol] 0.6 10*3/uL Low 1.00-4.8 [facility] Comment on above: Performed By: #### C MP, PT, CK, BNP, CBC, HS TROP, PTT, LIPASE ####[address] Lymphocytes/100 WBC (Bld) 7.8 % Normal . [facility] Comment on above: Performed By: #### C MP, PT, CK, BNP, CBC, HS TROP, PTT, LIPASE ####[address] MCH (RBC) [Entitic mass] 23.5 pg Low 24.7-34.3 [facility] Comment on above: Performed By: #### C MP, PT, CK, BNP, CBC, HS TROP, PTT, LIPASE ####[address] MCV (RBC) [Entitic vol] 73.6 fL Low 80-100 [facility] Comment on above: Performed By: #### C MP, PT, CK, BNP, CBC, HS TROP, PTT, LIPASE ####[address] Mean Corpuscular HGB Conc 31.9 g/dL Low 32.0-35.0 [facility] Comment on above: Performed By: #### C MP, PT, CK, BNP, CBC, HS TROP, PTT, LIPASE ####[address] Monocytes (Bld) [#/Vol] 0.6 10*3/uL Normal 0.0-0.8 [facility] Comment on above: Performed By: #### C MP, PT, CK, BNP, CBC, HS TROP, PTT, LIPASE ####[address] Monocytes/100 WBC (Bld) 18.84 % Normal 0.00-20.00 [facility] Comment on above: Performed By: #### C MP, PT, CK, BNP, CBC, HS TROP, PTT, LIPASE ####[address] Monocytes/100 WBC (Bld) 7.4 % Normal . [facility] Comment on above: Performed By: #### C MP, PT, CK, BNP, CBC, HS TROP, PTT, LIPASE ####[address] Neutrophils (Bld) [#/Vol] 6.5 10*3/uL Normal 1.8-7.7 [facility] Comment on above: Performed By: #### C MP, PT, CK, BNP, CBC, HS TROP, PTT, LIPASE ####[address] Neutrophils/100 WBC (Bld) 83.5 % Normal . [facility] Comment on above: Performed By: #### C MP, PT, CK, BNP, CBC, HS TROP, PTT, LIPASE ####[address] NRBC% 0.1 /100{WBC} Normal 0-0.5 [facility] Comment on above: Performed By: #### C MP, PT, CK, BNP, CBC, HS TROP, PTT, LIPASE ####[address] Platelet mean volume (Bld) [Entitic vol] 8.1 fL Normal 6.3-10.7 [facility] Comment on above: Performed By: #### C MP, PT, CK, BNP, CBC, HS TROP, PTT, LIPASE ####[address] Platelets (Bld) [#/Vol] 328 10*3/uL Normal 150-450 [facility] Comment on above: Performed By: #### C MP, PT, CK, BNP, CBC, HS TROP, PTT, LIPASE ####[address] RBC (Bld) [#/Vol] 4.49 10*6/uL Normal 3.60-5.00 [facility] Comment on above: Performed By: #### C MP, PT, CK, BNP, CBC, HS TROP, PTT, LIPASE ####[address] WBC (Bld) [#/Vol] 7.8 10*3/uL Normal 3.8-11.6 [facility] Comment on above: Performed By: #### C MP, PT, CK, BNP, CBC, HS TROP, PTT, LIPASE ####[address] Comprehensive Metabolic Pane barbara 07-27-2023 Albumin [Mass/Vol] 3.7 g/dL Normal 3.5-5.7 [facility] Comment on above: Performed By: #### C MP, PT, CK, BNP, CBC, HS TROP, PTT, LIPASE ####[address] Albumin/Globulin [Mass ratio] 1.1 {ratio} Normal [facility] Comment on above: Performed By: #### C MP, PT, CK, BNP, CBC, HS TROP, PTT, LIPASE ####[address] ALP [Catalytic activity/Vol] 94 U/L Normal 34-104 [facility] Comment on above: Performed By: #### C MP, PT, CK, BNP, CBC, HS TROP, PTT, LIPASE ####[address] ALT [Catalytic activity/Vol] 11 U/L Normal 7-52 [facility] Comment on above: Performed By: #### C MP, PT, CK, BNP, CBC, HS TROP, PTT, LIPASE ####[address] Anion gap [Moles/Vol] 12.2 mmol/L Normal 6.0-15.0 [place] Comment on above: Performed By: #### C MP, PT, CK, BNP, CBC, HS TROP, PTT, LIPASE ####[address] AST [Catalytic activity/Vol] 15 U/L Normal 13-39 [facility] Comment on above: Performed By: #### C MP, PT, CK, BNP, CBC, HS TROP, PTT, LIPASE ####[address] Bilirubin [Mass/Vol] 0.4 mg/dL Normal 0.3-1.0 [facility] Comment on above: Performed By: #### C MP, PT, CK, BNP, CBC, HS TROP, PTT, LIPASE ####[address] Calcium [Mass/Vol] 8.9 mg/dL Normal 8.6-10.3 [facility] Comment on above: Performed By: #### C MP, PT, CK, BNP, CBC, HS TROP, PTT, LIPASE ####[address] Chloride [Moles/Vol] 106 mmol/L Normal 98-107 [facility] Comment on above: Performed By: #### C MP, PT, CK, BNP, CBC, HS TROP, PTT, LIPASE ####[address] CO2 [Moles/Vol] 23.7 mmol/L Normal 21.0-31.0 [facility] Comment on above: Performed By: #### C MP, PT, CK, BNP, CBC, HS TROP, PTT, LIPASE ####[address] Creatinine [Mass/Vol] 0.91 mg/dL Normal 0.60-1.20 [facility] Comment on above: Performed By: #### C MP, PT, CK, BNP, CBC, HS TROP, PTT, LIPASE ####[address] Creatinine Clr Calc Pharmacy 52.10 [facility] Comment on above: Performed By: #### C MP, PT, CK, BNP, CBC, HS TROP, PTT, LIPASE ####[address] GFR/1.73 sq M.predicted MDRD (S/P/Bld) [Vol rate/Area] mL/min/{1.73_m2} [facility] Comment on above: Performed By: #### C MP, PT, CK, BNP, CBC, HS TROP, PTT, LIPASE ####[address] Globulin (S) [Mass/Vol] 3.4 g/dL [facility] Comment on above: Performed By: #### C MP, PT, CK, BNP, CBC, HS TROP, PTT, LIPASE ####[facility] [place] [id number] [facility] Glucose [Mass/Vol] 119 mg/dL High 70-100 [facility] Comment on above: Result Comment: [facility] Glucose Reference Range is dependent on time and content of last meal. Glucose of more than 200 mg/dL in a nonstressed, ambulatory subject supports the diagnosis of Diabetes Mellitus. ADA recommended reference range Performed By: #### C MP, PT, CK, BNP, CBC, HS TROP, PTT, LIPASE ####[place] [id number] [address] Potassium [Moles/Vol] 3.9 mmol/L Normal 3.5-5.1 [facility] Comment on above: Performed By: #### C MP, PT, CK, BNP, CBC, HS TROP, PTT, LIPASE ####[place] [id number] [address] Protein [Mass/Vol] 7.1 g/dL Normal 6.4-8.9 [facility] Comment on above: Performed By: #### C MP, PT, CK, BNP, CBC, HS TROP, PTT, LIPASE ####[place] [id number] [address] Sodium [Moles/Vol] 138 mmol/L Normal 136-145 [facility] Comment on above: Performed By: #### C MP, PT, CK, BNP, CBC, HS TROP, PTT, LIPASE ####[place] [id number] [facility] Urea nitrogen [Mass/Vol] 14 mg/dL Normal 7-25 [facility] Comment on above: Performed By: #### C MP, PT, CK, BNP, CBC, HS TROP, PTT, LIPASE ####[place] [address] [place] [id number] [facility] Creatine Kinaseon 07-27-2023 CK [Catalytic activity/Vol] 45 U/L Normal 30-223 [facility] Comment on above: Performed By: #### C MP, PT, CK, BNP, CBC, HS TROP, PTT, LIPASE ####[facility] [id number] [place] [id number] [facility] Creatine kinase [Enzymatic a ctivity/volume] in Serum or PlasmaOrdered By: Natalie Brian on 07-27-2023 CK [Catalytic activity/Vol] 45 U/L [facility] Creatinine [Mass/volume] in Serum or PlasmaOrdered By: Natalie Brian on 07-27-2023 Creatinine [Mass/Vol] 0.91 mg/dL 0.60-1.20 [facility] ECG 12 lead ECGon 07-27-2023 ECG 12 lead ECG [facility] [place] [address] [place] [address] Electrocardiograph Report Signed Patient: Jessy Dow MR#: [id number] [birth year] : 1940 Acct:[id number] Age/Sex: 83 / F ADM Date: 07/27/23 Loc: ER Room: Type: [facility] ER Attending Dr: Ordering Provider: Natalie Brian [...] Anterior leads Confirmed by NATALIE BRIAN DO ([id number]) on 07/27/2023 5:25:35 PM Referred By: Electronically Signed By:NATALIE BRIAN DO Transcribed By: MUS Signed By Natalie Brian DO 07/27 1726 Normal [facility] Eosinophils Auto (Bld) [#/Vo l]Ordered By: Natalie Brian on 07-27-2023 Eosinophils (Bld) [#/Vol] 0.0 10*3/uL 0.0-0.45 [facility] Eosinophils/100 WBC Auto (Bl d)Ordered By: Natalie Brian on 07-27-2023 Eosinophils/100 WBC (Bld) 0.5 % . [facility] Erythrocyte distribution wid th Auto (RBC) [Ratio]Ordered By: Natalie Brian on 07-27-2023 Erythrocyte distribution width (RBC) [Ratio] 18.4 % 11.9-15.3 [facility] Globulin Calc (S) [Mass/Vol] Ordered By: Natalie Brian on 07-27-2023 Globulin (S) [Mass/Vol] 3.4 g/dL [facility] Glucose [Mass/volume] in Ser um or PlasmaOrdered By: Natalie Brian on 07-27-2023 Glucose [Mass/Vol] 119 mg/dL 70-100 [facility] Comment on above: ADA recommended refe rence rangeRandom Glucose Reference Range is dependent on time and content of last meal. Glucose of more than 200 mg/dL in a nonstressed, ambulatory subject supports the diagnosis of Diabetes Mellitus. Hematocrit Auto (Bld) [Volum e fraction]Ordered By: Natalie Brian on 07-27-2023 Hematocrit (Bld) [Volume fraction] 33.1 % 34.0-46.4 [facility] Hemoglobin [Mass/volume] in BloodOrdered By: Natalie Brian on 07-27-2023 Hemoglobin (Bld) [Mass/Vol] 10.6 g/dL 11.8-15.4 [facility] INR in Platelet poor plasma by Coagulation assayOrdered By: Natalie Brian on 07-27-2023 INR Coag (PPP) [Relative time] 1.3 {INR} [facility] Comment on above: INR Therapeutic Rang e [...] 07-27-2023 Ketones (U) [Mass/Vol] Negative Negative [facility] Leukocytes [#/volume] correc qi for nucleated erythrocytes in Blood by Automated counOrdered By: Natalie Brian on 07-27-2023 WBC corrected for nucl RBC Auto (Bld) [#/Vol] 7.8 10*3/uL 3.8-11.6 [facility] Lipaseon 07-27-2023 Lipase [Catalytic activity/Vol] 15.0 U/L Normal 11.0-82.0 [facility] Comment on above: Result Comment: PERF ORMED BY: [facility] [address] [place] [address] PATHOLOGIST SECURITY SITE SUPERVISOR ROWAN IRWIN M.D. Performed By: #### C MP, PT, CK, BNP, CBC, HS TROP, PTT, LIPASE ####[facility] [place] [address] [facility] Lipase [Enzymatic activity/v olume] in Serum or PlasmaOrdered By: Natalie Brian on 07-27-2023 Lipase [Catalytic activity/Vol] 15.0 U/L 11.0-82.0 [facility] Lymphocytes Auto (Bld) [#/Vo l]Ordered By: Natalie Brian on 07-27-2023 Lymphocytes (Bld) [#/Vol] 0.6 10*3/uL 1.00-4.8 [facility] Lymphocytes/100 WBC Auto (Bl d)Ordered By: Natalie Brian on 07-27-2023 Lymphocytes/100 WBC (Bld) 7.8 % . [facility] MCH Auto (RBC) [Entitic mass ]Ordered By: Natalie Brian on 07-27-2023 MCH (RBC) [Entitic mass] 23.5 pg 24.7-34.3 [facility] MCHC Auto (RBC) [Mass/Vol]Or dered By: Natalie Brian on 07-27-2023 MCHC (RBC) [Mass/Vol] 31.9 g/dL 32.0-35.0 [facility] MCV Auto (RBC) [Entitic vol] Ordered By: Natalie Brian on 07-27-2023 MCV (RBC) [Entitic vol] 73.6 fL 80-100 [facility] Monocyte distribution width [Entitic volume] in Blood by AutomatedOrdered By: Natalie Brian on 07-27-2023 Monocyte distribution width Auto (Bld) [Entitic vol] 18.84 % 0.00-20.00 [facility] Monocytes Auto (Bld) [#/Vol] Ordered By: Natalie Brian on 07-27-2023 Monocytes (Bld) [#/Vol] 0.6 10*3/uL 0.0-0.8 [facility] Monocytes/100 WBC Auto (Bld) Ordered By: Natalie Brian on 07-27-2023 Monocytes/100 WBC (Bld) 7.4 % . [facility] Natriuretic peptide B [Mass/ Vol]Ordered By: Natalie Brian on 07-27-2023 Natriuretic peptide B (Bld) [Mass/Vol] 92.0 pg/mL 5-100 [facility] Neutrophils Auto (Bld) [#/Vo l]Ordered By: Natalie Brian on 07-27-2023 Neutrophils (Bld) [#/Vol] 6.5 10*3/uL 1.8-7.7 [facility] Neutrophils/100 WBC Auto (Bl d)Ordered By: Natalie Brian on 07-27-2023 Neutrophils/100 WBC (Bld) 83.5 % . [facility] Nitrite Test strip Ql (U)Ord ered By: Natalie Brian on 07-27-2023 Nitrite Ql (U) Negative Negative [facility] No Panel InformationOrdered By: Natalie Brian on 07-27-2023 Estimated GFR (CKD-EPI) > 60.0 mL/Min [facility] Creatinine Clearance (Chem 52.10 [facility] Nucleated erythrocytes [Pres ence] in Blood by Automated countOrdered By: Natalie Brian on 07-27-2023 Nucleated RBC Auto Ql (Bld) 0.1 /100{WBC} 0-0.5 [facility] Partial Thromboplastin Timeo n 07-27-2023 aPTT Coag (Bld) [Time] 35.2 s Normal 25.1-36.5 [place] Comment on above: Result Comment: A he matocrit value greater than 55% may lead to inaccurate results in coagulation testing. Patients having hematocrit values >55% require a special collection tube for coagulation studies. Please contact the laboratory at [phone] for redraw instructions. PERFORMED BY: [facility] [address] [place] [address] PATHOLOGIST SECURITY SITE SUPERVISOR ROWAN IRWIN M.D. Performed By: #### C MP, PT, CK, BNP, CBC, HS TROP, PTT, LIPASE ####[facility] [id number] Platelet mean volume Auto (B ld) [Entitic vol]Ordered By: Natalie Brian on 07-27-2023 Platelet mean volume (Bld) [Entitic vol] 8.1 fL 6.3-10.7 [facility] Platelets Auto (Bld) [#/Vol] Ordered By: Natalie Brian on 07-27-2023 Platelets (Bld) [#/Vol] 328 10*3/uL 150-450 [facility] Potassium [Moles/volume] in Serum or PlasmaOrdered By: Natalie Brian on 07-27-2023 Potassium [Moles/Vol] 3.9 mmol/L 3.5-5.1 [facility] Protein Auto test strip (U) [Mass/Vol]Ordered By: Natalie Brian on 07-27-2023 Protein (U) [Mass/Vol] Negative Negative [place] Protein [Mass/volume] in Ser um or PlasmaOrdered By: Natalie Brian on 07-27-2023 Protein [Mass/Vol] 7.1 g/dL 6.4-8.9 [facility] Prothrombin Time INRon 07-27 INR Coag (PPP) [Relative time] 1.3 {INR} Normal [facility] Comment on above: Result Comment: INR Therapeutic [...] CK, BNP, CBC, HS TROP, PTT, LIPASE ####[facility] [id number] [place] [address] [facility] PT Coag (PPP) [Time] 15.6 s High 9.0-12.9 [facility] Comment on above: Result Comment: A he matocrit value greater than 55% may lead to inaccurate results in coagulation testing. Patients having hematocrit values >55% require a special collection tube for coagulation studies. Please contact the laboratory at [phone] for redraw instructions. Performed By: #### C MP, PT, CK, BNP, CBC, HS TROP, PTT, LIPASE ####[facility] [id number] [place] [address] [facility] Prothrombin time (PT)Ordered By: Natalie Brian on 07-27-2023 PT Coag (PPP) [Time] 15.6 s 9.0-12.9 [facility] Comment on above: A hematocrit value g reater than 55% may lead to inaccurate results in coagulation testing. Patients having hematocrit values >55% require a special collection tube for coagulation studies. Please contact the laboratory at [phone] for redraw instructions. RBC Auto (Bld) [#/Vol]Ordere d By: Natalie Brian on 07-27-2023 RBC (Bld) [#/Vol] 4.49 10*6/uL 3.60-5.00 [facility] Serum or plasma albumin/glob ulin mass ratioOrdered By: Natalie Brian on 07-27-2023 Albumin/Globulin [Mass ratio] 1.1 {ratio} [facility] Serum or plasma anion gap de terminationOrdered By: Natalie Brian on 07-27-2023 Anion gap [Moles/Vol] 12.2 mmol/L 6.0-15.0 [place] Sodium [Moles/volume] in Ser um or PlasmaOrdered By: Natalie Brian on 07-27-2023 Sodium [Moles/Vol] 138 mmol/L 136-145 [facility] Specific gravity Auto test s trip (U) [Rel density]Ordered By: Natalie Brian on 07-27-2023 Specific gravity (U) [Rel density] 1.005 1.001-1.03 0 [facility] Troponin I High Sensitivityo n 07-27-2023 Troponin I High Sensitivity 4.3 pg/mL Normal 0.0-15.0 [facility] Comment on above: Order Comment: Comme nt repeat Result Comment: PERF ORMED BY: [facility] [address] [place] [address] PATHOLOGIST SECURITY SITE SUPERVISOR ROWAN IRWIN M.D. Performed By: #### H S TROP #### [facility] [address] [place] [address] Troponin I High Sensitivity 3.1 pg/mL Normal 0.0-15.0 [facility] Comment on above: Result Comment: PERF ORMED BY: [facility] [address] [place] [address] PATHOLOGIST SECURITY SITE SUPERVISOR ROWAN IRWIN M.D. Performed By: #### C MP, PT, CK, BNP, CBC, HS TROP, PTT, LIPASE ####[facility] [id number] [place] [address] Troponin I.cardiac [Mass/vol ume] in Serum or Plasma by Detection limit <= 0.01 ng/Ordered By: Natalie Brian on 07-27-2023 Troponin I.cardiac DL <= 0.01 ng/mL [Mass/Vol] 4.3 pg/mL 0.0-15.0 [facility] Urea nitrogen [Mass/volume] in Serum or PlasmaOrdered By: Natalie Brian on 07-27-2023 Urea nitrogen [Mass/Vol] 14 mg/dL 04-21 [facility] Urinalysison 07-27-2023 Appearance (U) Clear Normal Clear [facility] Comment on above: Order Comment: Name Collection Type:: Clean-Voided Midstream Performed By: #### U A #### [facility] [address] [place] [address] [place] Bilirubin,Urine Negative Normal Negative [facility] Comment on above: Order Comment: Name Collection Type:: Clean-Voided Midstream Performed By: #### U A #### [facility] [address] [place] [address] Color (U) Yellow Normal Yellow [facility] Comment on above: Order Comment: Name Collection Type:: Clean-Voided Midstream Performed By: #### U A #### [facility] [address] [place] [address] Glucose Ql (U) Normal Normal Normal [facility] Comment on above: Order Comment: Name Collection Type:: Clean-Voided Midstream Performed By: #### U A #### [address] Ketones Ql (U) Negative Normal Negative [facility] Comment on above: Order Comment: Name Collection Type:: Clean-Voided Midstream Performed By: #### U A #### [address] Leukocyte esterase Test strip Ql (U) Negative Normal Negative [facility] Comment on above: Order Comment: Name Collection Type:: Clean-Voided Midstream Performed By: #### U A #### [address] Nitrite,Urine Negative Normal Negative [facility] Comment on above: Order Comment: Name Collection Type:: Clean-Voided Midstream Performed By: #### U A #### [address] Occult Blood,Urine Negative Normal Negative [facility] Comment on above: Order Comment: Name Collection Type:: Clean-Voided Midstream Result Comment: PERF ORMED BY: [place] [address] PATHOLOGIST SECURITY SITE SUPERVISOR ROWAN IRWIN M.D. Performed By: #### U A #### [facility] [address] [place] [address] pH (U) 6.5 [pH] Normal 5.0-9.0 [facility] Comment on above: Order Comment: Name Collection Type:: Clean-Voided Midstream Performed By: #### U A #### [address] Protein,Urine Negative Normal Negative [facility] Comment on above: Order Comment: Name Collection Type:: Clean-Voided Midstream Performed By: #### U A #### [address] Specificy [place],Urine 1.005 Normal 1.001-1.03 0 [facility] Comment on above: Order Comment: Name Collection Type:: Clean-Voided Midstream Performed By: #### U A #### [facility] [address] [place] [address] [place] Urobilinogen,Urine Normal Normal Normal [facility] Comment on above: Order Comment: Name Collection Type:: Clean-Voided Midstream Performed By: #### U A #### [facility] [address] [place] [address] [place] Urine clarity by refractomet ry automatedOrdered By: Natalie Brian on 07-27-2023 Clarity Refractometry automated (U) Clear Clear [facility] Urine glucose measurement by automated test strip (mass/volume)Ordered By: Natalie Brian on 07-27-2023 Glucose Auto test strip (U) [Mass/Vol] Normal mg/dL Normal [facility] Urine hemoglobin detection b y automated test stripOrdered By: Natalie Brian on 07-27-2023 Hemoglobin Auto test strip Ql (U) Negative Negative [facility] Urine leukocyte esterase det ection by automated test stripOrdered By: Natalie Brian on 07-27-2023 Leukocyte esterase Auto test strip Ql (U) Negative Negative [facility] Urobilinogen Auto test strip (U) [Mass/Vol]Ordered By: Natalie Brian on 07-27-2023 Urobilinogen (U) [Mass/Vol] Normal mg/dL Normal [facility] WBC Auto (Bld) [#/Vol]Ordere d By: Natalie Brian on 07-27-2023 WBC (Bld) [#/Vol] 7.8 10*3/uL 3.8-11.6 [facility] XR chest 2V*on 07-27-2023 XR chest 2V* [facility] [address] [place] [address] [place] [address] XRay Report Signed Patient: Jessy Dow MR#: [id number] 77 : 1940 Acct:[id number] Age/Sex: 83 / F ADM Date: 07/27/23 Loc: ER Room: Type: [facility] ER Attending Dr: Copies to: Natalie Brian [...] Devin Diallo M.D.07/27/2023 1:17 PM Dictation Location: [place] [address] Transcribed By: [facility] 07/27/231316 Dictated By: Devin Diallo II, MD 07/27/231314 Signed By: 07/27/231316 Normal [facility] pH Auto test strip (U)Ordere d By: Natalie Brian on 07-27-2023 pH (U) 6.5 [pH] 5.0-9.0 [facility] Office Visit (Cardiology)on 04-16-2023 Follow-up visit Diagnoses/Problems [...] Weight Tips; Status:Complete - Retrospective Authorization; Done: [id number] Some eating tips that can help you lose weight.; Status:Complete - Retrospective Authorization; Done: [id number] Paroxysmal atrial fibrillation IO EKG Electrocardiogram- 12 Lead; Status:Complete; Done: [id number] SocHx: Never a smoker Tobacco Use Screening; Status:Complete; Done: [id number] Patient Instructions Please bring all medicines, vitamins, [...] recommended. No medical therapy is recommended Charmaine Pinedo MD, [facility] Surgical History Problems History of Appendectomy [...] Systems Cardiovasc (more content not included)... Normal [facility] Tobacco Screening.on 023 Adult depression screening assessment No [facility] n[facility]i 250 DO Work Phone: Fall risk assessment a) No falls within the last year [facility] n[facility]i 250 DO Work Phone: Tobacco use status CPHS b) No [facility] nirali 250 DO Work Phone: XR chest 2V*on 03-20-2023 XR chest 2V* [facility] [address] [place] [address] [place] [address] XRay Report Signed Patient: Jessy Dow MR#: [id number] [birth year] : 1940 Acct:[id number] Age/Sex: 82 / F ADM Date: 03/19/23 Loc: ER Room: Type: [facility] ER Attending Dr: Copies to: Gonzalo Smith [...] Pringle Jr., D.O.03/20/2023 8:21 AM Dictation Location: [place] [address] Transcribed By: [facility] 03/20/23820 Dictated By: Bernard Pringle Jr, DO 03/20/23819 Signed By: 03/20/2321 Normal [facility] Activated partial thrombopla stin time (aPTT) in platelet poor plasma by coagulation aOrdered By: Gonzalo Smith on 03-19-2023 aPTT Coag (PPP) [Time] 33.6 s 25.1-36.5 [place] Alanine aminotransferase [En zymatic activity/volume] in Serum or PlasmaOrdered By: Gonzalo Smith on 03-19-2023 ALT [Catalytic activity/Vol] 9 U/L 7-52 [facility] Albumin [Mass/volume] in Ser um or Plasma by Bromocresol green (BCG) dye binding methoOrdered By: Gonzalo Smith on 03-19-2023 Albumin BCG dye [Mass/Vol] 3.9 g/dL 3.5-5.7 [facility] Alkaline phosphatase [Enzyma tic activity/volume] in Serum or PlasmaOrdered By: Gonzalo Smith on 03-19-2023 ALP [Catalytic activity/Vol] 100 U/L 34-104 [facility] Aspartate aminotransferase [ Enzymatic activity/volume] in Serum or PlasmaOrdered By: Gonzalo Smith on 03-19-2023 AST [Catalytic activity/Vol] 13 U/L 13-39 [facility] Basophils Auto (Bld) [#/Vol] Ordered By: Gonzalo Smith on 03-19-2023 Basophils (Bld) [#/Vol] 0.0 10*3/uL 0.0-0.2 [facility] Basophils/100 WBC Auto (Bld) Ordered By: Gonzalo Smith on 03-19-2023 Basophils/100 WBC (Bld) 0.5 % . [facility] Bilirubin.total [Mass/volume ] in Serum or PlasmaOrdered By: Gonzalo Smith on 03-19-2023 Bilirubin [Mass/Vol] 0.4 mg/dL 0.3-1.0 [facility] Calcium [Mass/volume] in Ser um or PlasmaOrdered By: Gonzalo Smith on 03-19-2023 Calcium [Mass/Vol] 9.1 mg/dL 8.6-10.3 [facility] Carbon dioxide, total [Moles /volume] in Serum or PlasmaOrdered By: Gonzalo Smith on 03-19-2023 CO2 [Moles/Vol] 26.7 mmol/L 21.0-31.0 [facility] Chloride [Moles/volume] in S marylou or PlasmaOrdered By: Gonzalo Smith on 03-19-2023 Chloride [Moles/Vol] 105 mmol/L 98-107 [facility] Complete Blood Count Auto Di ffon 03-19-2023 Basophils (Bld) [#/Vol] 0.0 10*3/uL Normal 0.0-0.2 [facility] Comment on above: Result Comment: PERF ORMED BY: [place] [address] PATHOLOGIST SECURITY SITE SUPERVISOR ROWAN IRWIN M.D. Performed By: #### M G, PTT, CK, HS TROP, PT, CMP, CBC #### [address] Basophils/100 WBC (Bld) 0.5 % Normal . [facility] Comment on above: Performed By: #### M G, PTT, CK, HS TROP, PT, CMP, CBC #### [address] Eosinophils (Bld) [#/Vol] 0.1 10*3/uL Normal 0.0-0.45 [facility] Comment on above: Performed By: #### M G, PTT, CK, HS TROP, PT, CMP, CBC #### [address] Eosinophils/100 WBC (Bld) 1.4 % Normal . [facility] Comment on above: Performed By: #### M G, PTT, CK, HS TROP, PT, CMP, CBC #### [address] Erythrocyte distribution width (RBC) [Ratio] 16.8 % High 11.9-15.3 [facility] Comment on above: Performed By: #### M G, PTT, CK, HS TROP, PT, CMP, CBC #### [address] Hematocrit (Bld) [Volume fraction] 31.4 % Low 34.0-46.4 [facility] Comment on above: Performed By: #### M G, PTT, CK, HS TROP, PT, CMP, CBC #### [address] Hemoglobin (Bld) [Mass/Vol] 10.1 g/dL Low 11.8-15.4 [facility] Comment on above: Performed By: #### M G, PTT, CK, HS TROP, PT, CMP, CBC #### [place] [address] Lymphocytes (Bld) [#/Vol] 0.8 10*3/uL Low 1.00-4.8 [facility] Comment on above: Performed By: #### M G, PTT, CK, HS TROP, PT, CMP, CBC #### [address] Lymphocytes/100 WBC (Bld) 10.9 % Normal . [facility] Comment on above: Performed By: #### M G, PTT, CK, HS TROP, PT, CMP, CBC #### [address] MCH (RBC) [Entitic mass] 23.3 pg Low 24.7-34.3 [facility] Comment on above: Performed By: #### M G, PTT, CK, HS TROP, PT, CMP, CBC #### [address] MCV (RBC) [Entitic vol] 72.9 fL Low 80-100 [facility] Comment on above: Performed By: #### M G, PTT, CK, HS TROP, PT, CMP, CBC #### [address] Mean Corpuscular HGB Conc 32.0 g/dL Normal 32.0-35.0 [facility] Comment on above: Performed By: #### M G, PTT, CK, HS TROP, PT, CMP, CBC #### [address] Monocytes (Bld) [#/Vol] 0.6 10*3/uL Normal 0.0-0.8 [facility] Comment on above: Performed By: #### M G, PTT, CK, HS TROP, PT, CMP, CBC #### [address] Monocytes/100 WBC (Bld) 19.02 % Normal 0.00-20.00 [facility] Comment on above: Performed By: #### M G, PTT, CK, HS TROP, PT, CMP, CBC #### [facility] [address] Monocytes/100 WBC (Bld) 7.7 % Normal . [facility] Comment on above: Performed By: #### M G, PTT, CK, HS TROP, PT, CMP, CBC #### [address] Neutrophils (Bld) [#/Vol] 5.7 10*3/uL Normal 1.8-7.7 [facility] Comment on above: Performed By: #### M G, PTT, CK, HS TROP, PT, CMP, CBC #### [address] Neutrophils/100 WBC (Bld) 79.5 % Normal . [facility] Comment on above: Performed By: #### M G, PTT, CK, HS TROP, PT, CMP, CBC #### [address] NRBC% 0.0 /100{WBC} Normal 0-0.5 [facility] Comment on above: Performed By: #### M G, PTT, CK, HS TROP, PT, CMP, CBC #### [address] Platelet mean volume (Bld) [Entitic vol] 8.2 fL Normal 6.3-10.7 [facility] Comment on above: Performed By: #### M G, PTT, CK, HS TROP, PT, CMP, CBC #### [address] Platelets (Bld) [#/Vol] 291 10*3/uL Normal 150-450 [facility] Comment on above: Performed By: #### M G, PTT, CK, HS TROP, PT, CMP, CBC #### [address] RBC (Bld) [#/Vol] 4.31 10*6/uL Normal 3.60-5.00 [facility] Comment on above: Performed By: #### M G, PTT, CK, HS TROP, PT, CMP, CBC #### [facility] [address] [place] [address] WBC (Bld) [#/Vol] 7.2 10*3/uL Normal 3.8-11.6 [facility] Comment on above: Performed By: #### M G, PTT, CK, HS TROP, PT, CMP, CBC #### [facility] [address] Comprehensive Metabolic Pane barbara 03-19-2023 Albumin [Mass/Vol] 3.9 g/dL Normal 3.5-5.7 [facility] Comment on above: Performed By: #### M G, PTT, CK, HS TROP, PT, CMP, CBC #### [address] Albumin/Globulin [Mass ratio] 1.4 {ratio} Normal [facility] Comment on above: Performed By: #### M G, PTT, CK, HS TROP, PT, CMP, CBC #### [address] ALP [Catalytic activity/Vol] 100 U/L Normal 34-104 [facility] Comment on above: Performed By: #### M G, PTT, CK, HS TROP, PT, CMP, CBC #### [address] ALT [Catalytic activity/Vol] 9 U/L Normal 7-52 [facility] Comment on above: Performed By: #### M G, PTT, CK, HS TROP, PT, CMP, CBC #### [address] Anion gap [Moles/Vol] 11.3 mmol/L Normal 6.0-15.0 [place] Comment on above: Performed By: #### M G, PTT, CK, HS TROP, PT, CMP, CBC #### [address] AST [Catalytic activity/Vol] 13 U/L Normal 13-39 [facility] Comment on above: Performed By: #### M G, PTT, CK, HS TROP, PT, CMP, CBC #### [facility] [address] Bilirubin [Mass/Vol] 0.4 mg/dL Normal 0.3-1.0 [facility] Comment on above: Performed By: #### M G, PTT, CK, HS TROP, PT, CMP, CBC #### [facility] [address] Calcium [Mass/Vol] 9.1 mg/dL Normal 8.6-10.3 [facility] Comment on above: Performed By: #### M G, PTT, CK, HS TROP, PT, CMP, CBC #### [facility] [address] Chloride [Moles/Vol] 105 mmol/L Normal 98-107 [facility] Comment on above: Performed By: #### M G, PTT, CK, HS TROP, PT, CMP, CBC #### [facility] [address] CO2 [Moles/Vol] 26.7 mmol/L Normal 21.0-31.0 [facility] Comment on above: Performed By: #### M G, PTT, CK, HS TROP, PT, CMP, CBC #### [address] Creatinine [Mass/Vol] 0.80 mg/dL Normal 0.60-1.20 [facility] Comment on above: Performed By: #### M G, PTT, CK, HS TROP, PT, CMP, CBC #### [facility] [address] [place] [address] [place] Creatinine Clr Calc Pharmacy 57.01 [facility] Comment on above: Performed By: #### M G, PTT, CK, HS TROP, PT, CMP, CBC #### [place] [address] [place] GFR/1.73 sq M.predicted MDRD (S/P/Bld) [Vol rate/Area] mL/min/{1.73_m2} [facility] Comment on above: Performed By: #### M G, PTT, CK, HS TROP, PT, CMP, CBC #### [facility] [address] Globulin (S) [Mass/Vol] 2.8 g/dL Normal [facility] Comment on above: Performed By: #### M G, PTT, CK, HS TROP, PT, CMP, CBC #### [address] Glucose [Mass/Vol] 106 mg/dL High 70-100 [facility] Comment on above: Result Comment: [facility] Glucose Reference Range is dependent on time and content of last meal. Glucose of more than 200 mg/dL in a nonstressed, ambulatory subject supports the diagnosis of Diabetes Mellitus. ADA recommended reference range Performed By: #### M G, PTT, CK, HS TROP, PT, CMP, CBC #### [address] Potassium [Moles/Vol] 4.0 mmol/L Normal 3.5-5.1 [facility] Comment on above: Performed By: #### M G, PTT, CK, HS TROP, PT, CMP, CBC #### [address] Protein [Mass/Vol] 6.7 g/dL Normal 6.4-8.9 [facility] Comment on above: Performed By: #### M G, PTT, CK, HS TROP, PT, CMP, CBC #### [address] Sodium [Moles/Vol] 139 mmol/L Normal 136-145 [facility] Comment on above: Performed By: #### M G, PTT, CK, HS TROP, PT, CMP, CBC #### [address] Urea nitrogen [Mass/Vol] 18 mg/dL Normal 7-25 [facility] Comment on above: Performed By: #### M G, PTT, CK, HS TROP, PT, CMP, CBC #### [address] [place] [address] [place] Creatine Kinaseon 03-19-2023 CK [Catalytic activity/Vol] 40 U/L Normal [facility] Comment on above: Performed By: #### M G, PTT, CK, HS TROP, PT, CMP, CBC ####[facility] [address] [place] [id number] [facility] Creatine kinase [Enzymatic a ctivity/volume] in Serum or PlasmaOrdered By: Gonzalo Smith on 03-19-2023 CK [Catalytic activity/Vol] 40 U/L [facility] Creatinine [Mass/volume] in Serum or PlasmaOrdered By: Gonzalo Smith on 03-19-2023 Creatinine [Mass/Vol] 0.80 mg/dL 0.60-1.20 [facility] ECG 12 lead ECGon 03-19-2023 ECG 12 lead ECG [facility] [address] [place] [address] [place] [address] Electrocardiograph Report Signed Patient: Jessy Dow MR#: [id number] 77 : 1940 Acct:[id number] Age/Sex: 82 / F ADM Date: 03/19/23 Loc: ER Room: Type: [facility] ER Attending Dr: Ordering Provider: Gonzalo Smith [...] was found Confirmed by GONZALO SMITH MD ([id number]) on 03/20/2023 5:40:46 AM Referred By: Electronically Signed By:GONZALO SMITH MD Transcribed By: MUS Signed By Gonzalo Smith Jr, MD [id number] Normal [facility] Eosinophils Auto (Bld) [#/Vo l]Ordered By: Gonzalo Smith on 03-19-2023 Eosinophils (Bld) [#/Vol] 0.1 10*3/uL 0.0-0.45 [facility] Eosinophils/100 WBC Auto (Bl d)Ordered By: Gonzalo Smith on 03-19-2023 Eosinophils/100 WBC (Bld) 1.4 % . [facility] Erythrocyte distribution wid th Auto (RBC) [Ratio]Ordered By: Gonzalo Smith on 03-19-2023 Erythrocyte distribution width (RBC) [Ratio] 16.8 % 11.9-15.3 [facility] Globulin Calc (S) [Mass/Vol] Ordered By: Gonzalo Smith on 03-19-2023 Globulin (S) [Mass/Vol] 2.8 g/dL [facility] Glucose [Mass/volume] in Ser um or PlasmaOrdered By: Gonzalo Smith on 03-19-2023 Glucose [Mass/Vol] 106 mg/dL 70-100 [facility] Comment on above: ADA recommended refe rence rangeRandom Glucose Reference Range is dependent on time and content of last meal. Glucose of more than 200 mg/dL in a nonstressed, ambulatory subject supports the diagnosis of Diabetes Mellitus. Hematocrit Auto (Bld) [Volum e fraction]Ordered By: Gonzalo Smith on 03-19-2023 Hematocrit (Bld) [Volume fraction] 31.4 % 34.0-46.4 [facility] Hemoglobin [Mass/volume] in BloodOrdered By: Gonzalo Smith on 03-19-2023 Hemoglobin (Bld) [Mass/Vol] 10.1 g/dL 11.8-15.4 [facility] Laboratory - CoagulationOrde red By: Gonzalo Smith on 03-19-2023 PT Coag (PPP) [Time] 13.7 s 9.0-12.9 [facility] Leukocytes [#/volume] correc qi for nucleated erythrocytes in Blood by Automated counOrdered By: Gonzalo Smith on 03-19-2023 WBC corrected for nucl RBC Auto (Bld) [#/Vol] 7.2 10*3/uL 3.8-11.6 [facility] Lymphocytes Auto (Bld) [#/Vo l]Ordered By: Gonzalo Smith on 03-19-2023 Lymphocytes (Bld) [#/Vol] 0.8 10*3/uL 1.00-4.8 [facility] Lymphocytes/100 WBC Auto (Bl d)Ordered By: Gonzalo Smith on 03-19-2023 Lymphocytes/100 WBC (Bld) 10.9 % . [facility] MCH Auto (RBC) [Entitic mass ]Ordered By: Gonzalo Smith on 03-19-2023 MCH (RBC) [Entitic mass] 23.3 pg 24.7-34.3 [facility] MCHC Auto (RBC) [Mass/Vol]Or dered By: Gonzalo Smith on 03-19-2023 MCHC (RBC) [Mass/Vol] 32.0 g/dL 32.0-35.0 [facility] MCV Auto (RBC) [Entitic vol] Ordered By: Gonzalo Smith on 03-19-2023 MCV (RBC) [Entitic vol] 72.9 fL 80-100 [facility] Magnesiumon 03-19-2023 Magnesium [Mass/Vol] 1.9 mg/dL Normal 1.9-2.7 [facility] Comment on above: Result Comment: PERF ORMED BY: [facility] [address] [place] [id number] PATHOLOGIST SECURITY SITE SUPERVISOR ROWAN IRWIN M.D. Performed By: #### M G, PTT, CK, HS TROP, PT, CMP, CBC ####[facility] [address] [place] [id number] [facility] Magnesium [Mass/volume] in S marylou or PlasmaOrdered By: Gonzalo Smith on 03-19-2023 Magnesium [Mass/Vol] 1.9 mg/dL 1.9-2.7 [facility] Monocyte distribution width [Entitic volume] in Blood by AutomatedOrdered By: Gonzalo Smith on 03-19-2023 Monocyte distribution width Auto (Bld) [Entitic vol] 19.02 % 0.00-20.00 [facility] Monocytes Auto (Bld) [#/Vol] Ordered By: Gonzalo Smith on 03-19-2023 Monocytes (Bld) [#/Vol] 0.6 10*3/uL 0.0-0.8 [facility] Monocytes/100 WBC Auto (Bld) Ordered By: Gonzalo Smith on 03-19-2023 Monocytes/100 WBC (Bld) 7.7 % . [facility] Neutrophils Auto (Bld) [#/Vo l]Ordered By: Gonzalo Smith on 03-19-2023 Neutrophils (Bld) [#/Vol] 5.7 10*3/uL 1.8-7.7 [facility] Neutrophils/100 WBC Auto (Bl d)Ordered By: Gonzalo Smith on 03-19-2023 Neutrophils/100 WBC (Bld) 79.5 % . [facility] No Panel InformationOrdered By: Gonzalo Smith on 03-19-2023 Estimated GFR (CKD-EPI) > 60.0 mL/Min [facility] Creatinine Clearance (Chem 57.01 [facility] Nucleated erythrocytes [Pres ence] in Blood by Automated countOrdered By: Gonzalo Smith on 03-19-2023 Nucleated RBC Auto Ql (Bld) 0.0 /100{WBC} 0-0.5 [facility] Partial Thromboplastin Timeo n 03-19-2023 aPTT Coag (Bld) [Time] 33.6 s Normal 25.1-36.5 [place] Comment on above: Result Comment: PERF ORMED BY: [place] [address] PATHOLOGIST SECURITY SITE SUPERVISOR ROWAN IRWIN M.D. Performed By: #### M G, PTT, CK, HS TROP, PT, CMP, CBC #### [facility] [address] Platelet mean volume Auto (B ld) [Entitic vol]Ordered By: Gonzalo Smith on 03-19-2023 Platelet mean volume (Bld) [Entitic vol] 8.2 fL 6.3-10.7 [facility] Platelet poor plasma interna tional normalized ratio (INR) by coagulation assay (relatOrdered By: Gonzalo Smith on 03-19-2023 INR Coag (PPP) [Relative time] 1.2 {INR} [facility] Comment on above: INR Therapeutic Rang e [...] 03-19-2023 Platelets (Bld) [#/Vol] 291 10*3/uL 150-450 [facility] Potassium [Moles/volume] in Serum or PlasmaOrdered By: Gonzalo Smith on 03-19-2023 Potassium [Moles/Vol] 4.0 mmol/L 3.5-5.1 [facility] Protein [Mass/volume] in Ser um or PlasmaOrdered By: Gonzalo Smith on 03-19-2023 Protein [Mass/Vol] 6.7 g/dL 6.4-8.9 [facility] Prothrombin Time INRon 03-19 INR Coag (PPP) [Relative time] 1.2 {INR} Normal [facility] Comment on above: Result Comment: INR Therapeutic [...] CK, HS TROP, PT, CMP, CBC #### [facility] [address] [place] [address] [place] PT Coag (PPP) [Time] 13.7 s High 9.0-12.9 [facility] Comment on above: Performed By: #### M G, PTT, CK, HS TROP, PT, CMP, CBC #### [facility] [address] RBC Auto (Bld) [#/Vol]Ordere d By: Gonzalo Smith on 03-19-2023 RBC (Bld) [#/Vol] 4.31 10*6/uL 3.60-5.00 [facility] Serum or plasma albumin/glob ulin mass ratioOrdered By: Gonzalo Smith on 06-22-2023 Albumin/Globulin [Mass ratio] 1.4 {ratio} [facility] Serum or plasma anion gap de terminationOrdered By: Gonzalo Smith on 03-19-2023 Anion gap [Moles/Vol] 11.3 mmol/L 6.0-15.0 [place] Sodium [Moles/volume] in Ser um or PlasmaOrdered By: Gonzalo Smith on 03-19-2023 Sodium [Moles/Vol] 139 mmol/L 136-145 [facility] Troponin I High Sensitivityo n 03-19-2023 Troponin I High Sensitivity 4.1 pg/mL Normal 0.0-15.0 [facility] Comment on above: Result Comment: PERF ORMED BY: [facility] [address] [facility] [place] [id number] PATHOLOGIST SECURITY SITE SUPERVISOR ROWAN IRWIN M.D. Performed By: #### M G, PTT, CK, HS TROP, PT, CMP, CBC ####[facility] [address] [place] [address] [facility] Troponin I.cardiac [Mass/vol ume] in Serum or Plasma by Detection limit <= 0.01 ng/Ordered By: Gonzalo Smith on 03-19-2023 Troponin I.cardiac DL <= 0.01 ng/mL [Mass/Vol] 4.1 pg/mL 0.0-15.0 [facility] Urea nitrogen [Mass/volume] in Serum or PlasmaOrdered By: Gonzalo Smith on 03-19-2023 Urea nitrogen [Mass/Vol] 18 mg/dL 7-25 [facility] WBC Auto (Bld) [#/Vol]Ordere d By: Gonzalo Smith on 03-19-2023 WBC (Bld) [#/Vol] 7.2 10*3/uL 3.8-11.6 [facility] Office Visit (Cardiology)on 10-14-2022 Follow-up [...] emergency department back in May 2022 at [facility] the record from the visit were reviewed [...] seems to be getting under control. Charmaine Pinedo MD, [facility] Surgical History Problems History of Appendectomy [...] Screening.on 023 Adult depression screening assessment No [facility] DO Work Phone: Fall risk assessment a) No falls within the last year [facility] [employer] [facility] 250 DO Work Phone: Tobacco use status CPHS b) No [facility] 250 DO Work Phone: CBC AUTO DIFFon 10-04-2022 BASO # 0.0 103/ul Normal 0.0-0.1 [facility] Comment on above: Performed By: #### C BC #### [facility] [address] [place] [address] Dr. Madhuri Justice Basophils/100 WBC (Bld) 0.3 % Normal 0.2-2.0 [facility] Comment on above: Performed By: #### C BC #### [facility] [address] [place] [address] Dr. Madhuri Justice EO # 0.1 103/ul Normal 0.0-0.7 [facility] Comment on above: Performed By: #### C BC #### [facility] [address] [place] [address] Dr. Madhuri Justice Eosinophils/100 WBC (Bld) 1.7 % Normal 0.9-7.0 [facility] Comment on above: Performed By: #### C BC #### [facility] [address] [place] [address] Dr. Madhuri Justice Erythrocyte distribution width (RBC) [Ratio] 16.2 % Critically high 11.0-15.0 [facility] Comment on above: Performed By: #### C BC #### [facility] [address] [place] [address] Dr. Madhuri Justice Hematocrit (Bld) [Volume fraction] 33.0 % Critically low 36.0-48.0 [facility] Comment on above: Performed By: #### C BC #### [facility] [address] [place] [address] Dr. Madhuri Justice Hemoglobin (Bld) [Mass/Vol] 10.9 g/dL Critically low 12.0-16.0 [facility] Comment on above: Performed By: #### C BC #### [facility] [address] [place] [address] Dr. Madhuri Justice IG # 0.02 10e3/ul Normal 0.00-0.03 [facility] Comment on above: Performed By: #### C BC #### [facility] [address] [place] [address] Dr. Madhuri Justice IG % 0.3 % Normal 0.0-0.5 [facility] Comment on above: Performed By: #### C BC #### [facility] [address] [place] [address] Dr. Madhuri Justice LYMPH # 0.8 103/ul Critically low 1.2-3.8 [facility] Comment on above: Performed By: #### C BC #### [facility] [address] [place] [address] Dr. Madhuri Justice Lymphocytes/100 WBC (Bld) 13.4 % Critically low 20.5-60.0 [facility] Comment on above: Performed By: #### C BC #### [facility] [address] [place] [address] Dr. Madhuri Justice MANUAL DIFF REQ NO Normal [facility] Comment on above: Performed By: #### C BC #### [facility] [address] [place] [address] Dr. Madhuri Justice MCH (RBC) [Entitic mass] 24.4 pg Critically low 26.7-34.0 [facility] Comment on above: Performed By: #### C BC #### [facility] [address] [place] [address] Dr. Madhuri Justice MCHC (RBC) [Mass/Vol] 33.0 g/dL Normal 29.9-35.2 [facility] Comment on above: Performed By: #### C BC #### [facility] [address] [address] [address] Madhuri Justice MCV (RBC) [Entitic vol] 73.8 fL Critically low 81.0-99.0 [facility] Comment on above: Performed By: #### C BC #### [facility] [address] [place] [address] Dr. Madhuri Justice MONO # 0.5 103/ul Normal 0.3-0.8 [facility] Comment on above: Performed By: #### C BC #### [facility] [address] [place] [address] Dr. Madhuri Justice Monocytes/100 WBC (Bld) 8.0 % Normal 1.7-12.0 [facility] Comment on above: Performed By: #### C BC #### [facility] [address] [place] [address] Dr. Madhuri Justice NEUT # 4.6 103/ul Normal 1.4-6.5 [facility] Comment on above: Performed By: #### C BC #### [facility] [address] [place] [address] Dr. Madhuri Justice Neutrophils/100 WBC (Bld) 76.3 % Critically high 43.0-75.0 [facility] Comment on above: Performed By: #### C BC #### [facility] [address] [place] [address] Dr. Madhuri Justice Platelet mean volume (Bld) [Entitic vol] 9.5 fL Normal 9.5-13.5 [facility] Comment on above: Performed By: #### C BC #### [facility] [address] [place] [address] Dr. Madhuri Justice PLT 249 103/ul Normal 150-450 [facility] Comment on above: Performed By: #### C BC #### [facility] [address] [place] [address] Dr. Madhuri Justice RBC 4.47 106/ul Normal 4.20-5.40 [facility] Comment on above: Performed By: #### C BC #### [facility] [address] [place] [address] Dr. Madhuri Justice WBC 6.0 103/ul Normal 4.0-11.0 [facility] Comment on above: Performed By: #### C BC #### [facility] [address] [place] [address] Dr. Madhuri Justice LIPID PROFILEon 10-04-2022 CHOL-HDL RATIO NORM SEE BELOW Normal [facility] Comment on above: Result Comment: 3.3 - 4.4 LOW RISK 4.4 - 7.1 AVERAGE RISK 7.1 - 11.0 MODERATE RISK >11.0 HIGH RISK Performed By: #### L ACT #### [facility] [address] [place] [address] Dr. Madhuri Justice Cholesterol [Mass/Vol] 159 mg/dL Normal <=200 [facility] Comment on above: Performed By: #### L ACT #### [facility] [address] [place] [address] Dr. Madhuri Justice Cholesterol in HDL [Mass/Vol] 54 mg/dL Normal 40-60 [facility] Comment on above: Performed By: #### L ACT #### [facility] [address] [place] [address] Dr. Madhuri Justice Cholesterol in LDL [Mass/Vol] 84.4 mg/dL Normal [facility] Comment on above: Performed By: #### L ACT #### [facility] [address] [place] [address] Dr. Madhuri Justice Cholesterol.total/Chol esterol in HDL [Mass ratio] 2.9 {ratio} Normal [facility] Comment on above: Performed By: #### L ACT #### [facility] [address] [place] [address] Dr. Madhuri Justice HDL NORMAL > or = 60 mg/dl - LO W CARDIOVASCULAR RISK <40 mg/dl - HIGH CARDIOVASCULAR RISK Normal [facility] Comment on above: Performed By: #### L ACT #### [facility] [address] [address] [address] Madhuri Justice LDL CALC NORMAL SEE BELOW Normal [facility] Comment on above: Result Comment: <100 mg/dl OPTIMAL 100 - 129 mg/dl NEAR OR ABOVE OPTIMAL 130 - 159 mg/dl BORDERLINE HIGH 160 - 189 mg/dl HIGH >190 mg/dl VERY HIGH Performed By: #### L ACT #### [facility] [address] [address] [address] Madhuri Justice Triglyceride [Mass/Vol] 103 mg/dL Normal <=150 [facility] Comment on above: Performed By: #### L ACT #### [facility] [address] [address] [address] Madhuri Justice VLDL CALC 20.6 mg/dL Normal [facility] Comment on above: Performed By: #### L ACT #### [facility] [address] [place] [address] Dr. Madhuri Justice PROF 14(COMP METB)on 023 Albumin [Mass/Vol] 3.0 g/dL Critically low 3.4-5.0 [facility] Comment on above: Performed By: #### L IPID, CMP #### [facility] [address] [place] [address] Dr. Madhuri Justice Albumin/Globulin [Mass ratio] 0.8 {ratio} Normal [facility] Comment on above: Performed By: #### L IPID, CMP #### [facility] [address] [place] [address] Dr. Madhuri Justice ALP [Catalytic activity/Vol] 103 U/L Normal 46-116 [facility] Comment on above: Performed By: #### L IPID, CMP #### [facility] [address] [place] [address] Dr. Madhuri Justice ALT [Catalytic activity/Vol] 10 U/L Critically low 14-59 [facility] Comment on above: Performed By: #### L IPID, CMP #### [facility] [address] [place] [address] Dr. Madhuri Justice Anion gap [Moles/Vol] 10.5 mmol/L Normal [facility] Comment on above: Performed By: #### L IPID, CMP #### [facility] [address] [address] [address] Madhuri Justice AST [Catalytic activity/Vol] 13 U/L Critically low 15-37 [facility] Comment on above: Performed By: #### L IPID, CMP #### [facility] [address] [place] [address] Dr. Madhuri Justice Bilirubin [Mass/Vol] 0.6 mg/dL Normal 0.2-1.0 [facility] Comment on above: Performed By: #### L IPID, CMP #### [facility] [address] [place] [address] Dr. Madhuri Justice Calcium [Mass/Vol] 8.9 mg/dL Normal 8.5-10.1 [facility] Comment on above: Performed By: #### L IPID, CMP #### [facility] [address] [place] [address] Dr. Madhuri Justice Chloride [Moles/Vol] 105 mmol/L Normal 98-107 [facility] Comment on above: Performed By: #### L IPID, CMP #### [facility] [address] [place] [address] Dr. Madhuri Justice CO2 [Moles/Vol] 30.6 mmol/L Normal 21.0-32.0 [facility] Comment on above: Performed By: #### L IPID, CMP #### [facility] [address] [place] [address] Dr. Madhuri Justice Creatinine [Mass/Vol] 0.85 mg/dL Normal 0.55-1.02 [facility] Comment on above: Performed By: #### L IPID, CMP #### [facility] [address] [place] [address] Dr. Madhuri Justice EGFR-AF ARGENTINE >60 Normal >=60 [facility] Comment on above: Performed By: #### L IPID, CMP #### [facility] [address] [place] [address] Dr. Madhuri Justice EGFR-NON AF ARGENTINE >60 Normal >=60 [facility] Comment on above: Performed By: #### L IPID, CMP #### [facility] [address] [address] [address] Madhuri Justice Globulin (S) [Mass/Vol] 3.9 g/dL Normal [facility] Comment on above: Performed By: #### L IPID, CMP #### [facility] [address] [address] [address] Madhuri Justice Glucose [Mass/Vol] 112 mg/dL Critically high 74-106 [facility] Comment on above: Performed By: #### L IPID, CMP #### [facility] [address] [address] [address] Madhuri Justice Potassium [Moles/Vol] 4.1 mmol/L Normal 3.5-5.1 [facility] Comment on above: Performed By: #### L IPID, CMP #### [facility] [address] [place] [address] Dr. Madhuri Justice Protein [Mass/Vol] 6.9 g/dL Normal 6.4-8.2 [facility] Comment on above: Performed By: #### L IPID, CMP #### [facility] [address] [place] [address] Dr. Madhuri Justice Sodium [Moles/Vol] 142 mmol/L Normal 136-145 [facility] Comment on above: Performed By: #### L IPID, CMP #### [facility] [address] [place] [address] Dr. Madhuri Justice Urea nitrogen [Mass/Vol] 15.0 mg/dL Normal 7.0-18.0 [facility] Comment on above: Performed By: #### L IPID, CMP #### [facility] [address] [place] [address] Dr. Madhuri Justice Urea nitrogen/Creatinine [Mass ratio] 17.6 mg/mg Normal [facility] Comment on above: Performed By: #### L IPID, CMP #### [facility] [address] [place] [address] Dr. Madhuri Justice Activated partial thrombopla stin time (aPTT) in platelet poor plasma by coagulation aOrdered By: Robby York on 06-06-2022 aPTT Coag (PPP) [Time] 32.7 s 25.1-36.5 [place] Albumin [Mass/volume] in Ser um or PlasmaOrdered By: Robby York on 06-06-2022 Albumin [Mass/Vol] 2.8 g/dL 3.2-5.5 [facility] Automated erythrocytes count in urine sediment (number/area)Ordered By: Natalie Brian on 06-06-2022 RBC Auto (Urine sed) [#/Area] None seen [HPF] 0-4 [facility] Automated leukocytes count i n urine sediment (number/area)Ordered By: Natalie Brian on 06-06-2022 WBC Auto (Urine sed) [#/Area] 0-1 [HPF] 0-4 [facility] Basophils Auto (Bld) [#/Vol] Ordered By: Robby York on 06-06-2022 Basophils (Bld) [#/Vol] 0.0 10*3/uL 0.0-0.2 [facility] Basophils/100 WBC Auto (Bld) Ordered By: Robby York on 06-06-2022 Basophils/100 WBC (Bld) 0.5 % . [facility] Bilirubin Test strip Ql (U)O rdered By: Natalie Brian on 06-06-2022 Bilirubin Ql (U) Negative Negative [facility] Blood hemoglobin measurement (mass/volume)Ordered By: Robby York on 06-06-2022 Hemoglobin (Bld) [Mass/Vol] 9.3 g/dL 11.8-15.4 [facility] Blood leukocytes automated c ount (number/volume)Ordered By: Robby York on 06-06-2022 WBC (Bld) [#/Vol] 5.1 10*3/uL 4.5-11.0 [facility] COVID-19 SOFIAOrdered By: Chris York on 06-06-2022 SARS-CoV+SARS-CoV-2 (COVID-19) Ag IA.rapid Ql (Resp) Negative Negative [facility] Comment on above: This is a duplicate Joselyn SARS Antigen (TERE) result to be used for statistical tracking purpose only. Color Auto (U)Ordered By: Honorio Brian on 06-06-2022 Color (U) Yellow Yellow [facility] Creatinine and Glomerular fi ltration rate.predicted panel (S/P/Bld)Ordered By: Robby York on 06-06-2022 Creatinine [Mass/Vol] 0.84 mg/dL 0.44-1.03 [facility] Eosinophils Auto (Bld) [#/Vo l]Ordered By: Robby York on 06-06-2022 Eosinophils (Bld) [#/Vol] 0.1 10*3/uL 0.0-0.45 [facility] Eosinophils/100 WBC Auto (Bl d)Ordered By: Robby York on 06-06-2022 Eosinophils/100 WBC (Bld) 1.9 % . [facility] Erythrocyte distribution wid th Auto (RBC) [Ratio]Ordered By: Robby York on 06-06-2022 Erythrocyte distribution width (RBC) [Ratio] 16.7 % 11.9-15.3 [facility] Estimated glomerular filtrat ion rate (GFR) non- AmericanOrdered By: Robby York on 06-06-2022 GFR/1.73 sq M.predicted among non-blacks MDRD (S/P/Bld) [Vol rate/Area] > 60 mL/Min [facility] Globulin Calc (S) [Mass/Vol] Ordered By: Robby York on 06-06-2022 Globulin (S) [Mass/Vol] 2.9 g/dL [facility] Hematocrit Auto (Bld) [Volum e fraction]Ordered By: Robby York on 06-06-2022 Hematocrit (Bld) [Volume fraction] 29.5 % 34.0-46.4 [facility] Ketones Auto test strip (U) [Mass/Vol]Ordered By: Natalie Brian on 06-06-2022 Ketones (U) [Mass/Vol] Negative [facility] and C hemistry - challengeOrdered By: Robby York on 06-06-2022 Natriuretic peptide B (Bld) [Mass/Vol] 37.0 pg/mL 5-100 [facility] - CoagulationOrde red By: Robby York on 06-06-2022 PT Coag (PPP) [Time] 17.4 s 9.0-12.9 [facility] - Hematology and Cell countsOrdered By: Robby York on 06-06-2022 Nucleated RBC/100 WBC (Bld) [Ratio] 0.0 % 0-0.5 [facility] - UrinalysisOrder ed By: Natalie Brian on 06-06-2022 Hyaline casts LM Ql (Urine sed) 0-8 [LPF] 0-8 [facility] Lymphocytes Auto (Bld) [#/Vo l]Ordered By: Robby York on 06-06-2022 Lymphocytes (Bld) [#/Vol] 0.7 10*3/uL 1.00-4.8 [facility] Lymphocytes/100 WBC Auto (Bl d)Ordered By: Robby York on 06-06-2022 Lymphocytes/100 WBC (Bld) 13.9 % . [facility] MCH Auto (RBC) [Entitic mass ]Ordered By: Robby York on 06-06-2022 MCH (RBC) [Entitic mass] 24.2 pg 24.7-34.3 [facility] MCHC Auto (RBC) [Mass/Vol]Or dered By: Robby York on 06-06-2022 MCHC (RBC) [Mass/Vol] 31.4 g/dL 32.0-35.0 [facility] MCV Auto (RBC) [Entitic vol] Ordered By: Robby York on 06-06-2022 MCV (RBC) [Entitic vol] 76.9 fL 80-100 [facility] Monocytes Auto (Bld) [#/Vol] Ordered By: Robby York on 06-06-2022 Monocytes (Bld) [#/Vol] 0.5 10*3/uL 0.0-0.8 [facility] Monocytes/100 WBC Auto (Bld) Ordered By: Robby York on 06-06-2022 Monocytes/100 WBC (Bld) 9.6 % . [facility] Neutrophils Auto (Bld) [#/Vo l]Ordered By: Robby York on 06-06-2022 Neutrophils (Bld) [#/Vol] 3.8 10*3/uL 1.8-7.7 [facility] Neutrophils/100 WBC Auto (Bl d)Ordered By: Robby York on 06-06-2022 Neutrophils/100 WBC (Bld) 74.1 % . [facility] Nitrite Test strip Ql (U)Ord ered By: Natalie Brian on 06-06-2022 Nitrite Ql (U) Negative Negative [facility] No Panel InformationOrdered By: Robby York on 06-06-2022 Estimated GFR () > 60 mL/Min [facility] Comment on above: GFR estimated refere nce range: According to KDOQI guidelines, <60 ml/min/1.73m2 is sufficient to diagnose a patient with chronic kidney disease. Pharmacy Creatinine Clearance (Chem 83.60 [facility] SARS Antigen (LFIA) [facility] Platelet mean volume Auto (B ld) [Entitic vol]Ordered By: Robby York on 06-06-2022 Platelet mean volume (Bld) [Entitic vol] 8.1 fL 6.3-10.7 [facility] Platelet poor plasma interna tional normalized ratio (INR) by coagulation assay (relatOrdered By: Robby York on 06-06-2022 INR Coag (PPP) [Relative time] 1.5 {INR} [facility] Comment on above: INR Therapeutic Rang e [...] 06-06-2022 Platelets (Bld) [#/Vol] 225 10*3/uL 150-450 [facility] Protein Auto test strip (U) [Mass/Vol]Ordered By: Natalie Brian on 06-06-2022 Protein (U) [Mass/Vol] Negative Negative [facility] Protein [Mass/volume] in Ser um or PlasmaOrdered By: Robby York on 06-06-2022 Protein [Mass/Vol] 5.7 g/dL 6.1-7.9 [facility] RBC Auto (Bld) [#/Vol]Ordere d By: Robby York on 06-06-2022 RBC (Bld) [#/Vol] 3.84 10*6/uL 3.60-5.00 [facility] Serum or plasma alanine singleton otransferase measurement without P-5'-P (enzymatic activiOrdered By: Robby York on 06-06-2022 ALT No additional P-5'-P [Catalytic activity/Vol] 10 U/L 10-60 [facility] Serum or plasma albumin/glob ulin mass ratioOrdered By: Robby York on 06-06-2022 Albumin/Globulin [Mass ratio] 1.0 {ratio} [facility] Serum or plasma alkaline antwan sphatase measurement (enzymatic activity/volume)Ordered By: Robby York on 06-06-2022 ALP [Catalytic activity/Vol] 85 U/L 32-92 [facility] Serum or plasma anion gap de terminationOrdered By: Robby York on 06-06-2022 Anion gap [Moles/Vol] 12.5 mmol/L 6.0-15.0 [facility] Serum or plasma aspartate am inotransferase measurement (enzymatic activity/volume)Ordered By: Robby York on 06-06-2022 AST [Catalytic activity/Vol] 15 U/L 10-42 [facility] Serum or plasma calcium arabella urement (mass/volume)Ordered By: Robby York on 06-06-2022 Calcium [Mass/Vol] 8.3 mg/dL 8.2-10.2 [facility] Serum or plasma chloride marlen surement (moles/volume)Ordered By: Robby York on 06-06-2022 Chloride [Moles/Vol] 106 mmol/L 95-114 [facility] Serum or plasma glucose arabella urement (mass/volume)Ordered By: Robby York on 06-06-2022 Glucose [Mass/Vol] 115 mg/dL 70-100 [facility] Comment on above: ADA recommended refe rence range Random Glucose Reference Range is dependent on time and content of last meal. Glucose of more than 200 mg/dL in a nonstressed, ambulatory subject supports the diagnosis of Diabetes Mellitus. Serum or plasma potassium me asurement (moles/volume)Ordered By: Robby York on 06-06-2022 Potassium [Moles/Vol] 3.7 mmol/L 3.5-5.1 [facility] Serum or plasma sodium measu rement (moles/volume)Ordered By: Robby York on 06-06-2022 Sodium [Moles/Vol] 140 mmol/L 136-146 [facility] Serum or plasma total biliru bin measurement (mass/volume)Ordered By: Robby York on 06-06-2022 Bilirubin [Mass/Vol] 0.4 mg/dL 0.3-1.2 [facility] Serum or plasma total carbon dioxide measurement (moles/volume)Ordered By: Robby York on 06-06-2022 CO2 [Moles/Vol] 25.2 mmol/L 22.0-30.0 [facility] Serum or plasma urea nitroge n measurement (mass/volume)Ordered By: Robby York on 06-06-2022 Urea nitrogen [Mass/Vol] 14 mg/dL 9- [facility] Specific gravity Auto test s trip (U) [Rel density]Ordered By: Natalie Brian on 06-06-2022 Specific gravity (U) [Rel density] 1.013 1.001-1.03 0 [facility] Squamous epithelial cells de tection in urine sediment by light microscopyOrdered By: Natalie Brian on 06-06-2022 Epithelial cells.squamous LM Ql (Urine sed) 0-1 [HPF] 0-2 [facility] Troponin I.cardiac [Mass/vol ume] in Serum or Plasma by High sensitivity methodOrdered By: Natalie Brian on 06-06-2022 Troponin I.cardiac High sensitivity method [Mass/Vol] 7 pg/mL 0-15 [facility] Urine bacteria detection by automated methodOrdered By: Natalie Brian on 06-06-2022 Bacteria Auto Ql (U) None seen None Seen [facility] Urine clarity by refractomet ry automatedOrdered By: Natalie Brian on 06-06-2022 Clarity Refractometry automated (U) Clear Clear [facility] Urine glucose measurement by automated test strip (mass/volume)Ordered By: Natalie Brian on 06-06-2022 Glucose Auto test strip (U) [Mass/Vol] Normal mg/dL Normal [facility] Urine hemoglobin detection b y automated test stripOrdered By: Natalie Brian on 06-06-2022 Hemoglobin Auto test strip Ql (U) Negative Negative [facility] Urine leukocyte esterase det ection by automated test stripOrdered By: Natalie Brian on 06-06-2022 Leukocyte esterase Auto test strip Ql (U) 2+ Negative [facility] Urobilinogen Auto test strip (U) [Mass/Vol]Ordered By: Natalie Brian on 06-06-2022 Urobilinogen (U) [Mass/Vol] Normal mg/dL Normal [facility] pH Auto test strip (U)Ordere d By: Natalie Brian on 06-06-2022 pH (U) 7.0 [pH] 5.0-9.0 [facility] Tobacco Screening.on 022 Adult depression screening assessment No [facility] [employer] 250 DO Work Phone: Fall risk assessment a) No falls within the last year [facility] Work Phone: Tobacco use status [facility] b) No [facility] [employer] 250 DO Work Phone: OVA AND PARASITE EXAMINATION on 12-27-2021 Ova + Parasite Exam Final report Normal [facility] Comment on above: Result Comment: Thes e results were obtained using wet preparation(s) and trichrome stained smear. This test does not include testing for Cryptosporidium parvum, Cyclospora, or Microsporidia. Performed By: #### O VAPE #### [facility] [address] [place] [address] Dr. Madhuri Justice Result 1 Comment Normal [facility] Comment on above: Result Comment: No o va, cysts, or parasites seen. . One negative specimen does not rule out the possibility of a parasitic infection. Performed By: #### O VAPE #### [facility] [address] [place] [address] Dr. Madhuri Justice GIARDIA LAMBLIA AND CRYPTO D ETECTIONon 12-18-2021 Cryptosporidium EIA Negative Normal Negative [facility] Comment on above: Performed By: #### G IACRY #### [facility] [address] [place] [address] Dr. Madhuri Justice Giardia lamblia Ag, EIA Negative Normal Negative [facility] Comment on above: Performed By: #### G IACRY #### [facility] [address] [place] [address] Dr. Madhuri Justice C. DIFF PCRon 12-16-2021 C. DIFFICILE PCR Negative Normal NEGATIVE [facility] Comment on above: Performed By: #### C DIFPOC #### [facility] [address] [place] [address] Dr. Madhuri Justice CBC AUTO DIFFon 12-16-2021 BASO # 0.0 103/ul Normal 0.0-0.1 [facility] Comment on above: Performed By: #### C BC #### [facility] [address] [place] [address] Dr. Madhuri Justice Basophils/100 WBC (Bld) 0.4 % Normal 0.2-2.0 [facility] Comment on above: Performed By: #### C BC #### [facility] [address] [place] [address] Dr. Madhuri Justice EO # 0.1 103/ul Normal 0.0-0.7 [facility] Comment on above: Performed By: #### C BC #### [facility] [address] [place] [address] Dr. Madhuri Justice Eosinophils/100 WBC (Bld) 1.0 % Normal 0.9-7.0 [facility] Comment on above: Performed By: #### C BC #### [facility] [address] [place] [address] Dr. Madhuri Justice Erythrocyte distribution width (RBC) [Ratio] 16.2 % Critically high 11.0-15.0 [facility] Comment on above: Performed By: #### C BC #### [facility] [address] [place] [address] Dr. Madhuri Justice Hematocrit (Bld) [Volume fraction] 37.7 % Normal 36.0-48.0 [facility] Comment on above: Performed By: #### C BC #### [facility] [address] [place] [address] Dr. Madhuri Justice Hemoglobin (Bld) [Mass/Vol] 11.2 g/dL Critically low 12.0-16.0 [facility] Comment on above: Performed By: #### C BC #### [facility] [address] [place] [address] Dr. Madhuri Justice IG # 0.01 10e3/ul Normal 0.00-0.03 [facility] Comment on above: Performed By: #### C BC #### [facility] [address] [place] [address] Dr. Madhuri Justice IG % 0.1 % Normal 0.0-0.5 [facility] Comment on above: Performed By: #### C BC #### [facility] [address] [place] [address] Dr. Madhuri Justice LYMPH # 0.9 103/ul Critically low 1.2-3.8 [facility] Comment on above: Performed By: #### C BC #### [facility] [address] [place] [address] Dr. Madhuri Justice Lymphocytes/100 WBC (Bld) 12.2 % Critically low 20.5-60.0 [facility] Comment on above: Performed By: #### C BC #### [facility] [address] [place] [address] Dr. Madhuri Justice MANUAL DIFF REQ NO Normal [facility] Comment on above: Performed By: #### C BC #### [facility] [address] [place] [address] Dr. Madhuri Justice MCH (RBC) [Entitic mass] 24.7 pg Critically low 26.7-34.0 [facility] Comment on above: Performed By: #### C BC #### [facility] [address] [address] [address] Madhuri Justice MCHC (RBC) [Mass/Vol] 29.7 g/dL Critically low 29.9-35.2 [facility] Comment on above: Performed By: #### C BC #### [facility] [address] [address] [address] Madhuri Justice MCV (RBC) [Entitic vol] 83.0 fL Normal 81.0-99.0 [facility] Comment on above: Performed By: #### C BC #### [facility] [address] [place] [address] Dr. Madhuri Justice MONO # 0.6 103/ul Normal 0.3-0.8 [facility] Comment on above: Performed By: #### C BC #### [facility] [address] [place] [address] Dr. Madhuri Justice Monocytes/100 WBC (Bld) 7.7 % Normal 1.7-12.0 [facility] Comment on above: Performed By: #### C BC #### [facility] [address] [place] [address] Dr. Madhuri Justice NEUT # 5.7 103/ul Normal 1.4-6.5 [facility] Comment on above: Performed By: #### C BC #### [facility] [address] [place] [address] Dr. Madhuri Justice Neutrophils/100 WBC (Bld) 78.6 % Critically high 43.0-75.0 [facility] Comment on above: Performed By: #### C BC #### [facility] [address] [place] [address] Dr. Madhuri Justice Platelet mean volume (Bld) [Entitic vol] 10.4 fL Normal 9.5-13.5 [facility] Comment on above: Performed By: #### C BC #### [facility] [address] [place] [address] Dr. Madhuri Justice PLT 290 103/ul Normal 150-450 [facility] Comment on above: Performed By: #### C BC #### [facility] [address] [place] [address] Dr. Madhuri Justice RBC 4.54 106/ul Normal 4.20-5.40 [facility] Comment on above: Performed By: #### C BC #### [facility] [address] [place] [address] Dr. Madhuri Justice WBC 7.2 103/ul Normal 4.0-11.0 [facility] Comment on above: Performed By: #### C BC #### [facility] [address] [place] [address] Dr. Madhuri Justice ER URINE PROFILEon 2 Bilirubin Ql (U) Negative Normal NEGATIVE [facility] Comment on above: Performed By: #### E RUR #### [facility] [address] [place] [address] Dr. Madhuri Justice Clarity (U) CLEAR Normal CLEAR [facility] Comment on above: Performed By: #### E RUR #### [facility] [address] [place] [address] Dr. Madhuri Justice Color (U) YELLOW Normal YELLOW [facility] Comment on above: Performed By: #### E RUR #### [facility] [address] [place] [address] Dr. Madhuri ABBOTT A micrscopic examina tion will be performed if indicated. Normal [facility] Comment on above: Performed By: #### E RUR #### [facility] [address] [place] [address] Dr. Madhuri Justice Glucose Ql (U) Negative Normal NEGATIVE [facility] Comment on above: Performed By: #### E RUR #### [facility] [address] [place] [address] Dr. Madhuri Justice Hemoglobin Ql (U) Negative Normal NEGATIVE [facility] Comment on above: Performed By: #### E RUR #### [facility] [address] [place] [address] Dr. Madhuri Justice Ketones Ql (U) Negative Normal NEGATIVE [facility] Comment on above: Performed By: #### E RUR #### [facility] [address] [place] [address] Dr. Madhuri Justice LEUKOCYTES Negative Normal NEGATIVE [facility] Comment on above: Performed By: #### E RUR #### [facility] [address] [place] [address] Dr. Madhuri Justice Nitrite Ql (U) Negative Normal NEGATIVE [facility] Comment on above: Performed By: #### E RUR #### [facility] [address] [place] [address] Dr. Madhuri Justice pH (U) 6.0 [pH] Normal 5-9 [facility] Comment on above: Performed By: #### E RUR #### [facility] [address] [place] [address] Dr. Madhuri Justice SPEC GRAVITY 1.020 Normal 1.005-<=1. 025 [facility] Comment on above: Performed By: #### E RUR #### [facility] [address] [place] [address] Dr. Madhuri Justice UA PROTEIN Negative Normal NEGATIVE/ TRACE [facility] Comment on above: Performed By: #### E RUR #### [facility] [address] [place] [address] Dr. Madhuri Justice UR MICRO IND NOT INDICATED Normal [facility] Comment on above: Performed By: #### E RUR #### [facility] [address] [place] [address] Dr. Madhuri Justice Urobilinogen Qn (U) 0.2 {Bud'U}/dL Normal 0.2 - 1. 0 [facility] Comment on above: Performed By: #### E RUR #### [facility] [address] [place] [address] Dr. Madhuri Justice PROF 14(COMP METB)on 022 Albumin [Mass/Vol] 3.3 g/dL Critically low 3.4-5.0 [facility] Comment on above: Performed By: #### L ACT #### [facility] [address] [place] [address] Dr. Madhuri Justice Albumin/Globulin [Mass ratio] 0.8 {ratio} Normal [facility] Comment on above: Performed By: #### L ACT #### [facility] [address] [address] [address] Madhuri Justice ALP [Catalytic activity/Vol] 114 U/L Normal 46-116 [facility] Comment on above: Performed By: #### L ACT #### [facility] [address] [address] [address] Madhuri Justice ALT [Catalytic activity/Vol] 11 U/L Critically low 14-59 [facility] Comment on above: Performed By: #### L ACT #### [facility] [address] [address] [address] Madhuri Justice Anion gap [Moles/Vol] 10.6 mmol/L Normal [facility] Comment on above: Performed By: #### L ACT #### [facility] [address] [address] [address] Madhuri Justice AST [Catalytic activity/Vol] 13 U/L Critically low 15-37 [facility] Comment on above: Performed By: #### L ACT #### [facility] [address] [address] [address] Madhuri Justice Bilirubin [Mass/Vol] 0.5 mg/dL Normal 0.2-1.3 [facility] Comment on above: Performed By: #### L ACT #### [facility] [address] [address] [address] Madhuri Justice Calcium [Mass/Vol] 8.9 mg/dL Normal 8.5-10.1 [facility] Comment on above: Performed By: #### L ACT #### [facility] [address] [address] [address] Madhuri Justice Chloride [Moles/Vol] 103 mmol/L Normal 98-107 [facility] Comment on above: Performed By: #### L ACT #### [facility] [address] [address] [address] Madhuri Justice CO2 [Moles/Vol] 28.2 mmol/L Normal 22.0-30.0 [facility] Comment on above: Performed By: #### L ACT #### [facility] [address] [address] [address] Madhuri Justice Creatinine [Mass/Vol] 0.93 mg/dL Normal 0.52-1.04 [facility] Comment on above: Performed By: #### L ACT #### [facility] [address] [address] [address] Madhuri Justice EGFR-AF ARGENTINE >60 Normal >=60 [facility] Comment on above: Performed By: #### L ACT #### [facility] [address] [address] [address] Madhuri Justice EGFR-NON AF ARGENTINE 58 mL/min/1.73m2 Critically low >=60 [facility] Comment on above: Performed By: #### L ACT #### [facility] [address] [place] [address] Dr. Madhuri Justice Globulin (S) [Mass/Vol] 4.0 g/dL Normal [facility] Comment on above: Performed By: #### L ACT #### [facility] [address] [address] [address] Madhuri Justice Glucose [Mass/Vol] 121 mg/dL Critically high 74-106 [facility] Comment on above: Performed By: #### L ACT #### [facility] [address] [place] [address] Dr. Madhuri Justice Potassium [Moles/Vol] 3.8 mmol/L Normal 3.4-5.0 [facility] Comment on above: Performed By: #### L ACT #### [facility] [address] [address] [address] Madhuri Justice Protein [Mass/Vol] 7.3 g/dL Normal 6.1-8.2 [facility] Comment on above: Performed By: #### L ACT #### [facility] [address] [address] [address] Madhuri Justice Sodium [Moles/Vol] 138 mmol/L Normal 137-145 [facility] Comment on above: Performed By: #### L ACT #### [facility] [address] [place] [address] Dr. Madhuri Justice Urea nitrogen [Mass/Vol] 14.0 mg/dL Normal 7.0-18.0 [facility] Comment on above: Performed By: #### L ACT #### [facility] [address] [place] [address] Dr. Madhuri Justice Urea nitrogen/Creatinine [Mass ratio] 15.1 mg/mg Normal [facility] Comment on above: Performed By: #### L ACT #### [facility] [address] [place] [address] Dr. Madhuri Justice AMYLASEon 10-26-2021 Amylase [Catalytic activity/Vol] 35 U/L Normal 31-110 [facility] Comment on above: Performed By: #### L ACT #### [facility] [address] [place] [address] Dr. Madhuri Justice CBC W MANUAL DIFFon 10-26-19 22 ANISOCYTOSIS SLIGHT Normal [facility] Comment on above: Performed By: #### C BCMAN #### [facility] [address] [place] [address] Dr. Madhuri Justice ATYPICAL LYMPH # Normal [facility] Comment on above: Performed By: #### C BCMAN #### [facility] [address] [place] [address] Dr. Madhuri Justice ATYPICAL LYMPH % Normal [facility] Comment on above: Performed By: #### C BCMAN #### [facility] [address] [place] [address] Dr. Madhuri Justice BAND # 0.2 103/ul Normal 0.0-0.3 [facility] Comment on above: Performed By: #### C BCMAN #### [facility] [address] [place] [address] Dr. Madhuri Justice BAND % 2 % Normal 0-5 [facility] Comment on above: Performed By: #### C BCMAN #### [facility] [address] [place] [address] Dr. Madhuri Justice BASOM # 0.00 103/ul Normal 0.00-0.10 [facility] Comment on above: Performed By: #### C BCILIANA #### [facility] [address] [place] [address] Dr. Madhuri Justice BASOM % 0.0 % Critically low 0.2-2.0 [facility] Comment on above: Performed By: #### C BCILIANA #### [facility] [address] [place] [address] Dr. Madhuri Justice BLAST # Normal [facility] Comment on above: Performed By: #### C BCILIANA #### [facility] [address] [place] [address] Dr. Madhuri Justice BLAST % Normal [facility] Comment on above: Performed By: #### C DANNY #### [facility] [address] [place] [address] Dr. Madhuri Justice CORRECTED WBC Normal 4.0-11.0 [facility] Comment on above: Performed By: #### C DANNY #### [facility] [address] [place] [address] Dr. Madhuri Justice EOS # 0.09 103/ul Normal 0.00-0.70 [facility] Comment on above: Performed By: #### C DANNY #### [facility] [address] [place] [address] Dr. Madhuri Justice EOS% 1.0 % Normal 0.9-7.0 [facility] Comment on above: Performed By: #### C DANNY #### [facility] [address] [place] [address] Dr. Madhuri Justice HCT 37.3 % Normal 36.0-48.0 [facility] Comment on above: Performed By: #### C DANNY #### [facility] [address] [place] [address] Dr. Madhuri Justice HGB 11.0 g/dl Critically low 12.0-16.0 [facility] Comment on above: Performed By: #### C DANNY #### [facility] [address] [place] [address] Dr. Madhuri Justice HYPOCHROMASIA SLIGHT Normal [facility] Comment on above: Performed By: #### C DANNY #### [facility] [address] [address] [address] Madhuri Justice LYMPHM # 0.86 103/ul Critically low 1.20-3.80 [facility] Comment on above: Performed By: #### C DANNY #### [facility] [address] [address] [address] Madhuri Justice LYMPHM% 10.0 % Critically low 20.5-60.0 [facility] Comment on above: Performed By: #### C DANNY #### [facility] [address] [address] [address] Madhuri Justice MCH 23.9 pg Critically low 26.7-34.0 [facility] Comment on above: Performed By: #### C DANNY #### [facility] [address] [place] [address] Dr. Madhuri Justice MCHC 29.5 g/dl Critically low 29.9-35.2 [facility] Comment on above: Performed By: #### C DANNY #### [facility] [address] [address] [address] Madhuri Justice MCV 81.1 fL Normal 81.0-99.0 [facility] Comment on above: Performed By: #### C DANNY #### [facility] [address] [place] [address] Dr. Madhuri Justice METAMYELOCYTE # Normal [facility] Comment on above: Performed By: #### C DANNY #### [facility] [address] [address] [address] Madhuri Justice METAMYELOCYTE % Normal [facility] Comment on above: Performed By: #### C DANNY #### [facility] [address] [address] [address] Madhuri Justice MONOM# 0.52 103/ul Normal 0.30-0.80 [facility] Comment on above: Performed By: #### C DANNY #### [facility] [address] [address] [address] Madhuri Justice MONOM% 6.0 % Normal 1.7-12.0 [facility] Comment on above: Performed By: #### C BCILIANA #### [facility] [address] [place] [address] Dr. Madhuri Justice MPV 9.8 fL Normal 9.5-13.5 [facility] Comment on above: Performed By: #### C BCILIANA #### [facility] [address] [place] [address] Dr. Madhuri Justice MYELOCYTE # Normal [facility] Comment on above: Performed By: #### C BCMAN #### [facility] [address] [place] [address] Dr. Madhuri Justice MYELOCYTE % Normal [facility] Comment on above: Performed By: #### C DANNY #### [facility] [address] [place] [address] Dr. Madhuri Justice NRBC Normal [facility] Comment on above: Performed By: #### C DANNY #### [facility] [address] [place] [address] Dr. Madhuri Justice PLT 318 103/ul Normal 150-450 [facility] Comment on above: Performed By: #### C DANNY #### [facility] [address] [place] [address] Dr. Madhuri Justice RBC 4.60 106/ul Normal 4.20-5.40 [facility] Comment on above: Performed By: #### C DANNY #### [facility] [address] [place] [address] Dr. Madhuri Justice RDW 16.4 % Critically high 11.0-15.0 [facility] Comment on above: Performed By: #### C BCILIANA #### [facility] [address] [place] [address] Dr. Madhuri Justice SEG # 6.97 103/ul Critically high 1.40-6.50 [facility] Comment on above: Performed By: #### C DANNY #### [facility] [address] [place] [address] Dr. Madhuri Justice SEG % 81.0 % Critically high 43.0-75.0 [facility] Comment on above: Performed By: #### C BCMAN #### [facility] [address] [place], [place] [address] Dr. Madhuri Justice WBC 8.6 103/ul Normal 4.0-11.0 [facility] Comment on above: Performed By: #### C BCMAN #### [facility] [address] [place], [place] [address] ABD/PELV W CONon [...] Status post cholecystectomy. Electronically authenticated by: CLEMENTINA GANDHI Date: 2021-10-26 18:59 Normal [facility] LACTATE/LACTIC ACIDon 2021 Lactate [Moles/Vol] 0.6 mmol/L Critically low 0.7-2.0 [facility] Comment on above: Performed By: #### L ACT #### [facility] [address] [place] [address] Dr. Madhuri Justice LIPASEon 10-26-2021 Lipase [Catalytic activity/Vol] 70.0 U/L Normal 23.0-300.0 [facility] Comment on above: Performed By: #### L ACT #### [facility] [address] [place] [address] Dr. Madhuri Justice PROF 14(COMP METB)on Albumin [Mass/Vol] 3.5 g/dL Normal 3.5-5.0 [facility] Comment on above: Performed By: #### L ACT #### [facility] [address] [place] [address] Dr. Madhuri Justice Albumin/Globulin [Mass ratio] 0.9 {ratio} Normal [facility] Comment on above: Performed By: #### L ACT #### [facility] [address] [place] [address] Dr. Madhuri Justice ALP [Catalytic activity/Vol] 119 U/L Normal 38-126 [facility] Comment on above: Performed By: #### L ACT #### [facility] [address] [place] [address] Dr. Madhuri Justice ALT [Catalytic activity/Vol] 13 U/L Normal 9-52 [facility] Comment on above: Performed By: #### L ACT #### [facility] [address] [place] [address] Dr. Madhuri Justice Anion gap [Moles/Vol] 10.7 mmol/L Normal [facility] Comment on above: Performed By: #### L ACT #### [facility] [address] [place] [address] Dr. Madhuri Justice AST [Catalytic activity/Vol] 15 U/L Normal 14-36 [facility] Comment on above: Performed By: #### L ACT #### [facility] [address] [place] [address] Dr. Madhuri Justice Bilirubin [Mass/Vol] 0.5 mg/dL Normal 0.2-1.3 [facility] Comment on above: Performed By: #### L ACT #### [facility] [address] [address] [address] Madhuri Justice Calcium [Mass/Vol] 9.5 mg/dL Normal 8.4-10.2 [facility] Comment on above: Performed By: #### L ACT #### [facility] [address] [address] [address] Madhuri Justice Chloride [Moles/Vol] 104 mmol/L Normal 98-107 [facility] Comment on above: Performed By: #### L ACT #### [facility] [address] [address] [address] Madhuri Justice CO2 [Moles/Vol] 28.0 mmol/L Normal 22.0-30.0 [facility] Comment on above: Performed By: #### L ACT #### [facility] [address] [place] [address] Dr. Madhuri Justice Creatinine [Mass/Vol] 0.85 mg/dL Normal 0.52-1.04 [facility] Comment on above: Performed By: #### L ACT #### [facility] [address] [place] [address] Dr. Madhuri Justice EGFR-AF ARGENTINE >60 Normal >=60 [facility] Comment on above: Performed By: #### L ACT #### [facility] [address] [place] [address] Dr. Madhuri Justice EGFR-NON AF ARGENTINE >60 Normal >=60 [facility] Comment on above: Performed By: #### L ACT #### [facility] [address] [place] [address] Dr. Madhuri Justice Globulin (S) [Mass/Vol] 4.1 g/dL Normal [facility] Comment on above: Performed By: #### L ACT #### [facility] [address] [place] [address] Dr. Madhuri Justice Glucose [Mass/Vol] 116 mg/dL Critically high 74-106 [facility] Comment on above: Performed By: #### L ACT #### [facility] [address] [address] [address] Madhuri Justice Potassium [Moles/Vol] 3.7 mmol/L Normal 3.4-5.0 [facility] Comment on above: Performed By: #### L ACT #### [facility] [address] [address] [address] Madhuri Justice Protein [Mass/Vol] 7.6 g/dL Normal 6.1-8.2 [facility] Comment on above: Performed By: #### L ACT #### [facility] [address] [address] [address] Madhuri Justice Sodium [Moles/Vol] 139 mmol/L Normal 137-145 [facility] Comment on above: Performed By: #### L ACT #### [facility] [address] [address] [address] Madhuri Justice Urea nitrogen [Mass/Vol] 16.0 mg/dL Normal 7.0-17.0 [facility] Comment on above: Performed By: #### L ACT #### [facility] [address] [address] [address] Madhuri Justice Urea nitrogen/Creatinine [Mass ratio] 18.8 mg/mg Normal [facility] Comment on above: Performed By: #### L ACT #### [facility] Laboratory [address] [address] [address] Madhuri Justice CBCon 02-08-2020 Erythrocyte distribution width (RBC) [Ratio] 16.9 % High 11.5 - 14.5 [facility] Comment on above: Performed By: #### C BC #### [address] [address] Hematocrit (Bld) [Volume fraction] 40.7 % Normal 36.0 - 46.0 [facility] Comment on above: Performed By: #### C BC #### [address] [address] Hemoglobin (Bld) [Mass/Vol] 11.8 g/dL Low 12.0 - 16.0 [facility] Comment on above: Performed By: #### C BC #### [address] [address] MCHC (RBC) [Mass/Vol] 29.0 g/dL Low 32.0 - 36.0 [facility] Comment on above: Performed By: #### C BC #### [address] [address] MCV (RBC) [Entitic vol] 81 fL Normal 80 - 100 [facility] Comment on above: Performed By: #### C BC #### [address] [address] Platelets (Bld) [#/Vol] 296 10*3/uL Normal 150 - 450 [facility] Comment on above: Performed By: #### C BC #### [address] [address] RBC (Bld) [#/Vol] 5.01 x10E12/L Normal 4.00 - 5.20 [facility] Comment on above: Performed By: #### C BC #### [address] [address] WBC (Bld) [#/Vol] 7.0 10*3/uL Normal 4.4 - 11.3 [facility] Comment on above: Performed By: #### C BC #### [address] [address] CREATININEon 02-08-2020 Creatinine [Mass/Vol] mg/dL Normal >60 [facility] Comment on above: Result Comment: CALC ULATIONS OF ESTIMATED GFR ARE PERFORMED USING THE MDRD STUDY EQUATION FOR THE IDMS-TRACEABLE CREATININE METHODS. CLIN CHEM 2007;53:766-72 Performed By: #### C REAT #### [address] [address] Creatinine [Mass/Vol] 0.85 mg/dL Normal 0.50 - 1.05 [facility] Comment on above: Performed By: #### C REAT #### [address] [address] ELECTROLYTE PANELon 02-08-20 20 Anion gap [Moles/Vol] 12 mmol/L Normal 10 - 20 [facility] Comment on above: Performed By: #### E LECT #### [address] [address] Chloride [Moles/Vol] 104 mmol/L Normal 98 - 107 [facility] Comment on above: Performed By: #### E LECT #### [address] [address] HCO3 (Bld) [Moles/Vol] 29 mmol/L Normal 21 - 32 [facility] Comment on above: Performed By: #### E LECT #### [address] [address] Potassium [Moles/Vol] 3.9 mmol/L Normal 3.5 - 5.3 [facility] Comment on above: Performed By: #### E LECT #### [address] [address] Sodium [Moles/Vol] 141 mmol/L Normal 136 - 145 [facility] Comment on above: Performed By: #### E LECT #### [address] [address] UREA NITROGENon 02-08-2020 Urea nitrogen [Mass/Vol] 18 mg/dL Normal 6 - 23 [facility] Comment on above: Performed By: #### U GUSTAVO #### [address] [address] Creatinineon 11-24-2018 Creatinine mass conc 0.83 mg/dL Normal 0.50-1.05 [facility] Comment on above: Performed By: #### 1 [id number] #### [facility] [address] [place] [address] GFR/1.73 sq M.predicted MDRD vol rate/area mL/min/{1.73_m2} Normal [facility] Comment on above: Result Comment: Inte rpretation for Chronic Kidney Disease: Stages 1&2 >60 Healthy or potential kidney damage. Mild decrease of GFR. Stage 3 30-59 Moderate decrease of GFR. Stage 4 15-29 Severe decrease of GFR. Stage 5 <15 Kidney failure or on dialysis. Performed By: #### 1 [id number] #### [facility] [address] [place] [address] Electrolyte Panelon 11-24-19 19 Anion gap molar conc 13 mmol/L Normal 10-20 [facility] Comment on above: Performed By: #### 1 [id number] #### [facility] [address] [place] [address] Chloride molar conc 102 mmol/L Normal 98-107 [facility] Comment on above: Performed By: #### 1 [id number] #### [facility] [address] [place] [address] HCO3 molar conc (Bld) 28 mmol/L Normal 21-32 [facility] Comment on above: Performed By: #### 1 [id number] #### [facility] [address] [place] [address] Potassium molar conc 4.0 mmol/L Normal 3.5-5.1 [facility] Comment on above: Performed By: #### 1 [id number] #### [facility] [address] [place] [address] Sodium molar conc 139 mmol/L Normal 136-145 [facility] Comment on above: Performed By: #### 1 [id number] #### [facility] [address] [place] [address] Urea Nitrogenon 11-24-2018 Urea nitrogen mass conc 17 mg/dL Normal 6-23 [facility] Comment on above: Performed By: #### 1 [id number] #### [facility] [address] [place] [address] Creatinineon 11-18-2018 Creatinine mass conc 0.84 mg/dL Normal 0.50-1.05 [facility] Comment on above: Performed By: #### 1 [id number] #### [facility] [address] [place] [address] GFR/1.73 sq M.predicted MDRD vol rate/area mL/min/{1.73_m2} Normal [facility] Comment on above: Result Comment: Inte rpretation for Chronic Kidney Disease: Stages 1&2 >60 Healthy or potential kidney damage. Mild decrease of GFR. Stage 3 30-59 Moderate decrease of GFR. Stage 4 15-29 Severe decrease of GFR. Stage 5 <15 Kidney failure or on dialysis. Performed By: #### 1 [id number] #### [facility] [address] [place] [address] Electrolyte Panelon 11-18-19 19 Anion gap molar conc 10 mmol/L Normal 10-20 [facility] Comment on above: Performed By: #### 1 [id number] #### [facility] [address] [place] [address] Chloride molar conc 104 mmol/L Normal 98-107 [facility] Comment on above: Performed By: #### 1 [id number] #### [facility] [address] [place] [address] HCO3 molar conc (Bld) 30 mmol/L Normal 21-32 [facility] Comment on above: Performed By: #### 1 [id number] #### [facility] [address] [place] [address] Potassium molar conc 4.0 mmol/L Normal 3.5-5.1 [facility] Comment on above: Performed By: #### 1 [id number] #### [facility] [address] [place] [address] Sodium molar conc 140 mmol/L Normal 136-145 [facility] Comment on above: Performed By: #### 1 [id number] #### [facility] [address] [place] [address] Urea Nitrogenon 11-18-2018 Urea nitrogen mass conc 15 mg/dL Normal 6-23 [facility] Comment on above: Performed By: #### 1 [id number] #### [facility] [address] [place] [address] CBCon 2018 Erythrocyte distribution width Ratio (RBC) 16.3 % High 12.0-15.4 [facility] Comment on above: Performed By: #### 2 [id number] #### [facility] [address] [place] [address] Hematocrit Volume Fraction (Bld) 37.4 % Normal 36.5-46.6 [facility] Comment on above: Performed By: #### 2 [id number] #### [facility] [address] [place] [address] Hemoglobin mass conc (Bld) 11.0 g/dL Low 11.8-15.3 [facility] Comment on above: Performed By: #### 2 [id number] #### [facility] [address] [place] [address] MCH Entitic mass (RBC) 24.3 pg Low 27.5-33.0 [facility] Comment on above: Performed By: #### 2 [id number] #### [facility] [address] [place] [address] MCHC mass conc (RBC) 29.4 g/dL Low 30.1-35.0 [facility] Comment on above: Performed By: #### 2 [id number] #### [facility] [address] [place] [address] MCV Entitic volume (RBC) 82.6 fL Low 85.4-100.0 [facility] Comment on above: Performed By: #### 2 [id number] #### [facility] [address] [place] [address] NRBC Absolute 0.00 10*3/uL Normal [facility] Comment on above: Performed By: #### 2 [id number] #### [facility] [address] [place] [address] NRBC Automated 0.0 /100{WBCs} Normal [facility] Comment on above: Performed By: #### 2 [id number] #### [facility] [address] [place] [address] Platelet mean volume Entitic volume (Bld) 10.8 fL Normal 9.9-12.1 [facility] Comment on above: Performed By: #### 2 [id number] #### [facility] [address] [place] [address] Platelets #/vol (Bld) 314 10*3/uL Normal 155-404 [facility] Comment on above: Performed By: #### 2 [id number] #### [facility] [address] [place] [address] RBC #/vol (Bld) 4.53 10*6/uL Normal 3.85-5.10 [facility] Comment on above: Performed By: #### 2 [id number] #### [facility] [address] [place] [address] RDW SD 49.1 fL High 39.3-48.6 [facility] Comment on above: Performed By: #### 2 [id number] #### [facility] [address] [place] [address] WBC #/vol (Bld) 7.9 10*3/uL Normal 4.4-9.9 [facility] Comment on above: Performed By: #### 2 [id number] #### [facility] [address] [place] [address] Creatinineon 2018 Creatinine mass conc 0.85 mg/dL Normal 0.50-1.05 [facility] Comment on above: Performed By: #### 1 [id number] #### [facility] [address] [place] [address] GFR/1.73 sq M.predicted MDRD vol rate/area mL/min/{1.73_m2} Normal [facility] Comment on above: Result Comment: Inte rpretation for Chronic Kidney Disease: Stages 1&2 >60 Healthy or potential kidney damage. Mild decrease of GFR. Stage 3 30-59 Moderate decrease of GFR. Stage 4 15-29 Severe decrease of GFR. Stage 5 <15 Kidney failure or on dialysis. Performed By: #### 1 [id number] #### [facility] [address] [place] [address] Electrolyte Panelon 05-25-20 18 Anion gap molar conc 13 mmol/L Normal 10-20 [facility] Comment on above: Performed By: #### 1 [id number] #### [facility] [address] [place] [address] Chloride molar conc 102 mmol/L Normal 98-107 [facility] Comment on above: Performed By: #### 1 [id number] #### [facility] [address] [place] [address] HCO3 molar conc (Bld) 28 mmol/L Normal 21-32 [facility] Comment on above: Performed By: #### 1 [id number] #### [facility] [address] [place] [address] Potassium molar conc 3.9 mmol/L Normal 3.5-5.1 [facility] Comment on above: Performed By: #### 1 [id number] #### [facility] [address] [place] [address] Sodium molar conc 139 mmol/L Normal 136-145 [facility] Comment on above: Performed By: #### 1 [id number] #### [facility] [address] [place] [address] Urea Nitrogenon 2018 Urea nitrogen mass conc 15 mg/dL Normal 6-23 [facility] Comment on above: Performed By: #### 1 [id number] #### [facility] [address] [place] [address] Vital Signs Date Time Vital Sign Value Performing Clinician Facility 11-02-2024 10:47-0500 Body height 160 cm Porfirio CLARKM Work Phone: [facility] 11-02-2024 10:47-0500 Body mass index (BMI) [Ratio] 31.89 kg/m2 Porfirio Rubio DPM Work Phone: [facility] 11-02-2024 10:47-0500 Body weight 81.65 kg Porfirio CLARKM Work Phone: [facility] 09-27-2024 11:25-0500 Body height 160 cm Raghav Mitchell DO Work Phone: [facility] 09-27-2024 11:25-0500 Body mass index (BMI) [Ratio] 35.25 kg/m2 Raghav Mitchell DO Work Phone: [facility] 09-27-2024 11:25-0500 Body temperature 97.11 [degF] Raghav Mitchell DO Work Phone: [facility] 09-27-2024 11:25-0500 Body weight 90.27 kg Raghav Mitchell DO Work Phone: [facility] 09-27-2024 11:25-0500 Diastolic blood pressure 68 mm[Hg] Raghav Mitchell DO Work Phone: [facility] 09-27-2024 11:25-0500 Heart rate 64 /min Raghav Mitchell DO Work Phone: [facility] 09-27-2024 11:25-0500 SaO2% (BldA) [Mass fraction] 99 % Raghav Mitchell DO Work Phone: [facility] 09-27-2024 11:25-0500 Systolic blood pressure 136 mm[Hg] Raghav Mitchell DO Work Phone: [facility] 09-26-2024 14:45-0500 Body height 160 cm Chloe BACA Work Phone: [facility] 09-26-2024 14:45-0500 Body mass index (BMI) [Ratio] 32.77 kg/m2 Chloe BACA Work Phone: [facility] 09-26-2024 14:45-0500 Body weight 83.92 kg Chloe Mercado PA Work Phone: [facility] 07-27-2024 13:29-0400 Body height 160 cm Porfirio Rubio DPM Work Phone: [facility] 07-27-2024 13:29-0400 Body mass index (BMI) [Ratio] 34.72 kg/m2 Porfirio Rubio DPM Work Phone: [facility] 07-27-2024 13:29-0400 Body weight 88.91 kg Porfirio Rubio DPM Work Phone: [facility] 05-12-2024 16:40-0400 Body height 160 cm Raghav Mitchell DO Work Phone: [facility] 05-12-2024 16:40-0400 Body mass index (BMI) [Ratio] 34.72 kg/m2 Raghav Mitchell DO Work Phone: [facility] 05-12-2024 16:40-0400 Body temperature 98.01 [degF] Raghav Stephen DO Work Phone: [facility] 05-12-2024 16:40-0400 Body weight 88.91 kg Raghav Yinger DO Work Phone: [facility] 05-12-2024 16:40-0400 Diastolic blood pressure 76 mm[Hg] Raghav Stephen DO Work Phone: [facility] 05-12-2024 16:40-0400 Heart rate 68 /min Raghav Stephen DO Work Phone: [facility] 05-12-2024 16:40-0400 Systolic blood pressure 132 mm[Hg] Raghav Stephen DO Work Phone: [facility] 04-21-2024 13:40-0400 Body height 160.02 cm DO Raghav Stephen Work Phone: [facility] 04-21-2024 13:40-0400 Body temperature 97.7 [degF] DO Raghav Yinger Work Phone: [facility] 04-21-2024 13:40-0400 Body weight 81.64 kg DO Raghav Setphen Work Phone: [facility] 04-21-2024 13:40-0400 Diastolic blood pressure 81 mm[Hg] DO Raghav Yinger Work Phone: [facility] 04-21-2024 13:40-0400 Heart rate 69 /min DO Raghav Yinger Work Phone: [facility] 04-21-2024 13:40-0400 Respiratory rate 20 /min DO Raghav Yinger Work Phone: [facility] 04-21-2024 13:40-0400 SaO2% (BldA) [Mass fraction] 98 % DO Raghav Stephen Work Phone: [facility] 04-21-2024 13:40-0400 Systolic blood pressure 178 mm[Hg] DO Raghav Stephen Work Phone: [facility] 04-13-2024 11:15-0400 Body height 160 cm Charmaine Pinedo MD Work Phone: [facility] 04-13-2024 11:15-0400 Body mass index (BMI) [Ratio] 34.86 kg/m2 Charmaine Pinedo MD Work Phone: [facility] 04-13-2024 11:15-0400 Body weight 89.27 kg Charmaine Pinedo MD Work Phone: [facility] 04-13-2024 11:15-0400 Diastolic blood pressure 70 mm[Hg] Charmaine Pinedo MD Work Phone: [facility] 04-13-2024 11:15-0400 Heart rate 65 /min Charmaine Pinedo MD Work Phone: [facility] 04-13-2024 11:15-0400 Systolic blood pressure 118 mm[Hg] Charmaine Pinedo MD Work Phone: [facility] 09-18-2023 10:31-0500 Body height 160 cm Charmaine Pinedo MD Work Phone: [facility] 09-18-2023 10:31-0500 Body mass index (BMI) [Ratio] 36.31 kg/m2 Charmaine Pinedo MD Work Phone: [facility] 09-18-2023 10:31-0500 Body weight 92.99 kg Charmaine Pinedo MD Work Phone: [facility] 09-18-2023 10:31-0500 Diastolic blood pressure 72 mm[Hg] Charmaine Pinedo MD Work Phone: [facility] 09-18-2023 10:31-0500 Heart rate 70 /min Charmaine Pinedo MD Work Phone: [facility] 09-18-2023 10:31-0500 Systolic blood pressure 122 mm[Hg] Charmaine Pinedo MD Work Phone: [facility] 09-01-2023 10:54-0500 Diastolic blood pressure 65 mm[Hg] DO Raghav Mitchell Work Phone: [facility] 09-01-2023 10:54-0500 Heart rate 65 /min DO Raghav Mitchell Work Phone: [facility] 09-01-2023 10:54-0500 Respiratory rate 18 /min DO Raghav Mitchell Work Phone: [facility] 09-01-2023 10:54-0500 SaO2% (BldA) [Mass fraction] 95 % DO Raghav Mitchell Work Phone: [facility] 09-01-2023 10:54-0500 Systolic blood pressure 149 mm[Hg] DO Raghav Mitchell Work Phone: [facility] 09-01-2023 09:33-0500 Body height 160.02 cm DO Raghav Mitchell Work Phone: [facility] 09-01-2023 09:33-0500 Body weight 92 kg DO Raghav Mitchell Work Phone: [facility] 09-01-2023 09:31-0500 Body temperature 97.4 [degF] DO Raghav Mitchell Work Phone: [facility] 08-18-2023 08:38-0500 Diastolic blood pressure 82 mm[Hg] Charmaine Pinedo MD Work Phone: [facility] 08-18-2023 08:38-0500 Systolic blood pressure 138 mm[Hg] Charmaine Pinedo MD Work Phone: [facility] 08-18-2023 08:32-0500 Body height 160 cm Charmaine Pinedo MD Work Phone: [facility] 08-18-2023 08:32-0500 Body mass index (BMI) [Ratio] 36.31 kg/m2 Charmaine Pinedo MD Work Phone: [facility] 08-18-2023 08:32-0500 Body weight 92.99 kg Charmaine Pinedo MD Work Phone: [facility] 08-18-2023 08:32-0500 Heart rate 60 /min Charmaine Pinedo MD Work Phone: [facility] 07-27-2023 16:00-0400 Diastolic blood pressure 72 mm[Hg] DO Raghav Stephen Work Phone: [facility] 07-27-2023 16:00-0400 Heart rate 77 /min DO Raghav Mitchell Work Phone: [facility] 07-27-2023 16:00-0400 Respiratory rate 23 /min DO Raghav Stephen Work Phone: [facility] 07-27-2023 16:00-0400 SaO2% (BldA) [Mass fraction] 97 % DO Raghav Mitchell Work Phone: [facility] 07-27-2023 16:00-0400 Systolic blood pressure 160 mm[Hg] DO Raghav Mitchell Work Phone: [facility] 07-27-2023 12:05-0400 Body height 160.02 cm DO Raghav Stephen Work Phone: [facility] 07-27-2023 12:05-0400 Body temperature 97.5 [degF] DO Raghav Stephen Work Phone: [facility] 07-27-2023 12:05-0400 Body weight 94.5 kg DO Raghav Mitchell Work Phone: [facility] 04-16-2023 10:48-0400 Body height 162.56 cm Raghav Mitchell Work Phone: [facility] DO Work Phone: 04-16-2023 10:48-0400 Body mass index (BMI) [Ratio] 34.87 kg/m2 Raghav Mitchell Work Phone: [facility] DO Work Phone: 04-16-2023 10:48-0400 Body surface area Derived from formula 1.97 m2 Raghav Mitchell Work Phone: [facility] 250 DO Work Phone: 04-16-2023 10:48-0400 Body weight 92.14 kg Raghav Irvin Stephen Work Phone: [facility] 250 DO Work Phone: 04-16-2023 10:48-0400 Diastolic blood pressure 78 mm[Hg] Raghav Irvin Stephen Work Phone: [facility] DO Work Phone: 04-16-2023 10:48-0400 Heart rate 64 /min Raghav Irvin Stephen Work Phone: [facility] DO Work Phone: 04-16-2023 10:48-0400 Systolic blood pressure 138 mm[Hg] Raghav Mitchell Work Phone: [facility] DO Work Phone: 03-19-2023 22:00-0400 Diastolic blood pressure 67 mm[Hg] DO Raghav Mitchell Work Phone: [facility] 03-19-2023 22:00-0400 Systolic blood pressure 146 mm[Hg] DO Raghav Mitchell Work Phone: [facility] 03-19-2023 21:08-0400 Heart rate 63 /min DO Raghav Mitchell Work Phone: [facility] 03-19-2023 21:04-0400 Respiratory rate 18 /min DO Raghav Mitchell Work Phone: [facility] 03-19-2023 21:04-0400 SaO2% (BldA) [Mass fraction] 98 % DO Raghav Mitchell Work Phone: [facility] 03-19-2023 20:10-0400 Body height 162.56 cm DO Raghav Mitchell Work Phone: [facility] 03-19-2023 20:10-0400 Body temperature 97.8 [degF] DO Raghav Mitchell Work Phone: [facility] 03-19-2023 20:10-0400 Body weight 81.64 kg DO Raghav Mitchell Work Phone: [facility] 10-14-2022 12:07-0500 Diastolic blood pressure 68 mm[Hg] Raghav Mitchell Work Phone: [facility] 250 DO Work Phone: 10-14-2022 12:07-0500 Systolic blood pressure 128 mm[Hg] aRghav Mitchell Work Phone: [facility] DO Work Phone: 10-14-2022 11:53-0500 Body height 162.56 cm Raghav Mitchell Work Phone: [facility] 250 DO Work Phone: 10-14-2022 11:53-0500 Body mass index (BMI) [Ratio] 31.93 kg/m2 Raghav Mitchell Work Phone: [facility] 250 DO Work Phone: 10-14-2022 11:53-0500 Body surface area Derived from formula 1.9 m2 Raghav Mitchell Work Phone: [facility] 250 DO Work Phone: 10-14-2022 11:53-0500 Body weight 84.37 kg Raghav Mitchell Work Phone: [facility] DO Work Phone: 10-14-2022 11:53-0500 Diastolic blood pressure 72 mm[Hg] Raghav Mitchell Work Phone: [facility] DO Work Phone: 10-14-2022 11:53-0500 Heart rate 65 /min Raghav Mitchell Work Phone: [facility] 250 DO Work Phone: 10-14-2022 11:53-0500 Systolic blood pressure 144 mm[Hg] Raghav Mitchell Work Phone: [facility] 250 DO Work Phone: 07-24-2022 15:30-0400 Body height 165.1 cm Isrrael Aparicio Other [facility] [email or web address] Other 07-24-2022 15:30-0400 Body mass index (BMI) [Ratio] 28.29 kg/m2 Isrrael Aparicio Other [facility] [email or web address] Other 07-24-2022 15:30-0400 Body weight 77.11 kg Isrrael Aparicio Other [facility] [email or web address] Other 06-06-2022 09:47-0400 Diastolic blood pressure 66 mm[Hg] DO Raghav Mitchell Work Phone: [facility] 06-06-2022 09:47-0400 Heart rate 71 /min DO Raghav Mitchell Work Phone: [facility] 06-06-2022 09:47-0400 Respiratory rate 20 /min DO Raghav Mitchell Work Phone: [facility] 06-06-2022 09:47-0400 SaO2% (BldA) [Mass fraction] 97 % DO Raghav Mitchell Work Phone: [facility] 06-06-2022 09:47-0400 Systolic blood pressure 145 mm[Hg] DO Raghav Mitchell Work Phone: [facility] 06-06-2022 05:51-0400 Body height 162.56 cm DO Raghav Mitchell Work Phone: [facility] 06-06-2022 05:51-0400 Body temperature 97.7 [degF] DO Raghav Mitchell Work Phone: [facility] 06-06-2022 05:51-0400 Body weight 170 kg DO Raghav Mitchell Work Phone: [facility] 03-04-2022 15:49-0400 Body height 162.56 cm Raghav Mitchell Work Phone: [facility] 250 DO Work Phone: 03-04-2022 15:49-0400 Body mass index (BMI) [Ratio] 31.58 kg/m2 Raghav Mitchell Work Phone: [facility] 250 DO Work Phone: 03-04-2022 15:49-0400 Body surface area Derived from formula 1.89 m2 Raghav Mitchell Work Phone: [facility] 250 DO Work Phone: 03-04-2022 15:49-0400 Body weight 83.46 kg Raghav Mitchell Work Phone: [facility] 250 DO Work Phone: 03-04-2022 15:49-0400 Diastolic blood pressure 62 mm[Hg] Raghav Mitchell Work Phone: [facility] 250 DO Work Phone: 03-04-2022 15:49-0400 Heart rate 69 /min Raghav Mitchell Work Phone: [facility] 250 DO Work Phone: 03-04-2022 15:49-0400 Systolic blood pressure 112 mm[Hg] Raghav Mitchell Work Phone: [facility] 250 DO Work Phone: Encounters Encounter Date Encounter Type Care Provider Facility Start: 11-02-2024 End: 11-02-2024 Bamboo flowsheet Porfirio Rubio DPM Work Phone: [facility] Start: 11-02-2024 End: 11-02-2024 Bamboo flowsheet Porfirio Rubio DPM Work Phone: [facility] Start: 11-02-2024 End: 11-02-2024 Patient encounter procedure Porfirio S Joanne DPM Work Phone: [facility] Comment on above: Onychomycosis (Prima ry Dx); Onychodystrophy; Pain in both feet Start: 11-02-2024 End: 11-02-2024 ambulatory PORFIRIO Auguste GOOD Not Available Start: 10-25-2024 End: 10-25-2024 Telephone encounter Robel Worthington VP [employer] [facility] Start: 10-10-2024 End: 10-11-2024 Telephone encounter Marcela Cowan PT [facility] Comment on above: CX PT 10/17 - 10/26/24 Start: 10-03-2024 End: 10-03-2024 Telephone encounter Marcela Cowan PT [facility] Comment on above: Cx / Rs PT needed Start: 09-27-2024 End: 09-27-2024 Office outpatient visit 25 minutes Raghav Mitchell DO Work Phone: [facility] FM 230 Comment on above: 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); Diverticulitis Start: 09-27-2024 End: 09-27-2024 ambulatory RAGHAV MITCHELL Not Available Start: 09-26-2024 End: 09-26-2024 ambulatory CHLOE MERCADO Not Available Start: 09-26-2024 End: 09-26-2024 Office outpatient new 45 minutes Chloe BACA Work Phone: [facility] Comment on above: Acute hip pain, left (Primary Dx); Left leg swelling; Trochanteric bursitis of left hip; Pain of left calf Start: 09-26-2024 End: 09-26-2024 ambulatory CHLOE MERCADO Not Available Start: 09-26-2024 End: 09-26-2024 Bamboo flowsheet Chloe Mercado PA Work Phone: [facility] Start: 09-26-2024 End: 09-26-2024 Bamboo flowsheet Chloe Mercado PA Work Phone: [facility] Start: 07-27-2024 End: 07-27-2024 Patient encounter procedure Porfirio S Joanne DPM Work Phone: [facility] Comment on above: Onychomycosis (Prima ry Dx); Onychodystrophy; Pain in both feet Start: 07-27-2024 End: 07-27-2024 ambulatory PORFIRIO RUBIO Not Available Start: 05-12-2024 End: 05-12-2024 Office outpatient visit 25 minutes Raghav Mitchell DO Work Phone: [facility] 230 Comment on above: Other thrombophilia (CMS/HCC); Stricture of artery (CMS/HCC); Other forms of angina pectoris (CMS/HCC); Angina pectoris, unspecified (CMS/HCC) Start: 05-12-2024 End: 05-12-2024 ambulatory RAGHAV MITCHELL Not Available Start: 04-26-2024 End: 04-26-2024 ambulatory PORFIRIO RUBIO Not Available Start: 04-21-2024 End: 04-21-2024 Emergency department patient visit DO Raghav Mitchell Work Phone: [facility] Work Phone: Start: 04-13-2024 End: 04-13-2024 Office outpatient visit 25 minutes Charmaine Pinedo MD Work Phone: [facility] Comment on above: Paroxysmal atrial fi brillation (Multi) (Primary Dx); Essential hypertension, benign; Right bundle branch block (RBBB) on electrocardiography; Anticoagulated; Never smoked any substance; BMI 34.0-34.9,adult; Microcytic anemia; High risk medication use; Diverticulitis Start: 04-13-2024 End: 04-13-2024 ambulatory CHARMAINE Akbar [facility] Ambulatory Start: 02-01-2024 End: 02-01-2024 ambulatory RAGHAV MITCHELL Not Available Start: 01-26-2024 End: 01-27-2024 ambulatory [facility] Start: 01-20-2024 End: 01-20-2024 ambulatory PORFIRIO RUBIO Not Available Start: 12-09-2023 End: 12-09-2023 ambulatory SUSAN MCMAHAN Not Available Start: 12-01-2023 End: 12-01-2023 ambulatory HOLLY BACON Not Available Start: 11-05-2023 End: 11-05-2023 ambulatory ELTON OSCAR Not Available Start: 09-18-2023 End: 09-18-2023 ambulatory CHARMAINE Akbar PINEDO [facility] Ambulatory Start: 09-18-2023 End: 09-18-2023 Office outpatient visit 25 minutes Charmaine Pinedo MD Work Phone: [facility] Comment on above: Paroxysmal atrial fi brillation (CMS/HCC) (Primary Dx); Essential hypertension, benign; Never smoked any substance; High risk medication use; Class II obesity; Premature atrial contractions Start: 09-01-2023 End: 09-01-2023 Emergency department patient visit Natalie Brian Facility:[facility] Start: 09-01-2023 End: 09-01-2023 Emergency department patient visit DO Raghav Mitchell Work Phone: [facility] Work Phone: Start: 08-18-2023 End: 08-18-2023 Office outpatient visit 10 minutes Charmaine Pinedo MD Work Phone: [facility] Comment on above: Essential hypertensi on, benign Start: 07-27-2023 End: 07-27-2023 Emergency department patient visit Natalie Brian Facility:[facility] Start: 07-27-2023 End: 07-27-2023 Emergency department patient visit DO Raghav Mitchell Work Phone: [facility] Work Phone: Start: 04-16-[address] Charmaine Pinedo Facility: Start: 04-16-2023 Office outpatient vi sit 25 minutes Raghav Mitchell Work Phone: [facility] 250 DO Work Phone: Start: 04-02-2023 Rx Renewal Raghav Mitchell Work Phone: [facility] 250 DO Work Phone: Start: 03-19-2023 End: 03-20-2023 Emergency department patient visit Gonzalo Smith Jr Facility:[facility] Start: 03-19-2023 End: 03-19-2023 Emergency department patient visit DO Raghav Mitchell Work Phone: [facility] Work Phone: Start: 03-19-2023 Rx Renewal Raghav Mitchell Work Phone: [facility] 250 DO Work Phone: Start: 03-15-2023 Rx Renewal Raghav Mitchell Work Phone: [facility] 250 DO Work Phone: Start: 10-14-2022 Office outpatient vi sit 25 minutes Raghav Mitchell Work Phone: [facility] 250 DO Work Phone: Start: 10-14-[address] Charmaine Cho amtngrant Pinedo Facility: Start: 10-08-2022 Rx Renewal Raghav Mitchell Work Phone: [facility] 250 DO Work Phone: Start: 10-04-2022 End: 10-05-[address] DOCTOR HARDY Facility:H1 Start: 09-29-2022 End: 09-29-[address] RAGHAV MITCHELL Facility:[facility]1 Start: 09-10-2022 Telephone encounter Raghav gomes Work Phone: [facility] 250 DO Work Phone: Start: 09-06-2022 End: 09-06-[address] RAGHAV MITCHELL Facility:H1 Start: 07-24-2022 End: 07-24-2022 ambulatory Isrrael Aparicio Other [facility] [email or web address] Other Start: 07-24-2022 Office outpatient ne w 45 minutes Isrrael Aparicio [facility] Gastroenterology Start: 06-06-2022 End: 06-06-2022 Emergency department patient visit DO Raghav Mitchell Work Phone: [facility] Start: 03-04-2022 Office outpatient vi sit 25 minutes Raghav Mitchell Work Phone: [facility] 250 DO Work Phone: Start: 01-14-2022 End: 01-14-[address] RAGHAV MITCHELL Facility:H1 Start: 01-10-2022 End: 01-10-2022 ambulatory George Adams Other [facility] [email or web address] Other Start: 01-10-2022 Telephone encounter George Adams [facility] Gastroenterology Start: 12-17-2021 AUDIT Raghav Mitchell Work Phone: [facility] [address] DO Work Phone: Start: 12-16-2021 End: 12-17-[address] RAGHAV MITCHELL Facility:H1 Start: 10-26-2021 End: 10-26-[address] HIRO TOMPKINS Facility:H1 Start: 08-20-2021 Telephone encounter Raghav gomes Work Phone: [facility] [address] [place] Work Phone: Start: 11-24-2018 Patient encounter procedure JES Alexandru KEITH Facility:[id number] Start: 11-18-2018 Patient encounter procedure JES KEITH Facility:[id number] Start: 2018 Patient encounter procedure CHARMAINE PINEDO Facility:[id number] Procedures Date Procedure Procedure Detail Performing Clinician Start: 09-26-2024 Radex hip unilateral with pelvis 2-3 views Chloe BACA Work Phone: Start: 04-13-2024 Ecg routine ecg w/le ast 12 lds w/i&r Charmaine Pinedo MD Work Phone: Start: 09-18-2023 ECG 12-LEAD CHARMAINE CORADO Start: 09-18-2023 Ecg routine ecg w/le ast 12 lds w/i&r Charmaine Pinedo MD Work Phone: Start: 09-01-2023 Plain chest X-ray DO Phuong Mitchell Work Phone: Start: 07-27-2023 CT of abdomen and pe lvis without contrast DO Raghav Yinger Work Phone: Start: 07-27-2023 Plain chest X-ray DO Phuong Mitchell Work Phone: Start: 06-06-2022 CT of abdomen and pe lvis without contrast DO Raghav Yinger Work Phone: Start: 06-06-2022 Plain chest X-ray DO Phuong Mitchell Work Phone: Appendectomy Raghav Bryan Stephen Work Phone: Cataract surgery Raghav sullivan Work Phone: Cholecystectomy Raghav Davenport r Work Phone: Colonoscopy Raghav Irvin Stephen Work Phone: Hysterectomy Raghav Irvin Stephen Work Phone: SARS Antigen (LFIA) DO Raghav Mitchell Work Phone: Surgical procedure Raghav santos Work Phone: Plan of Treatment Date Care Activity Detail Author Start: 01-15-2032 DTaP/Tdap/Td Vaccine s (3 - Td or Tdap) DTaP/Tdap/Td Vaccines (3 - Td or Tdap) [facility] Start: 01-31-2025 Medicare Annual Wellness (AWV) Medicare Annual Wellness (AWV) [facility] Start: 11-10-2024 End: 11-10-2024 Patient encounter procedure 11/10/2024 11:00 AM EST Office Visit [facility] [address] [facility] [address] [place] [address] Charmaine Pinedo MD [address] [facility] [address] [place] [address] [facility] Start: 11-09-2024 End: 11-09-2024 Clinical Support 11/09/2024 3:45 PM EST Clinical [facility] [address] [facility] [address] [place] [address] Holly Bacon, [facility] [address] [place] [address] [facility] Start: 11-02-2024 End: 11-02-2024 Patient encounter procedure [facility] Comment on above: Arrived Start: 10-26-2024 End: 10-26-2024 ambulatory 10/26/2024 5:00 PM EST Treatment [facility] [address] [place] [address] Marcela Cowan, PT [facility] Start: 10-24-2024 End: 10-24-2024 ambulatory 10/24/2024 5:00 PM EST Treatment [facility] [address] [place] [address] Marcela Cowan, PT [facility] Start: 10-19-2024 End: 10-19-2024 ambulatory 10/19/2024 4:30 PM EST Treatment [facility] [address] [place] [address] Marcela Cowan, PT [facility] Start: 10-17-2024 End: 10-17-2024 ambulatory 10/17/2024 6:00 PM EST Evaluation [facility] [address] [place] [address] Marcela Cowan, PT [facility] Start: 10-13-2024 End: 10-13-2024 ambulatory 10/13/2024 12:00 PM EST Treatment [facility] [address] [place] [address] Naman Arcos, VP [employer] [facility] Start: 10-11-2024 End: 10-11-2024 ambulatory 10/11/2024 5:00 PM EST Treatment [facility] [address] [place] [address] Naman Arcos, VP [employer] [facility] Start: 10-05-2024 End: 10-05-2024 ambulatory 10/05/2024 5:00 PM EST Evaluation [facility] [address] [place] [address] Marcela Cowan, PT [facility] Start: 09-27-2024 End: 09-27-2024 Patient encounter procedure 09/27/2024 11:20 AM EST Office Visit [facility] [address] [place] [phone] Raghav Mitchell DO [address] [place] [address] [facility] [address] Start: 09-26-2024 End: 09-26-2024 Patient encounter procedure 09/26/2024 2:45 PM EST Office Visit [facility] [address] [place] [phone] Chloe Mercado, PA [address] [place] [address] Acute hip pain, left (Primary Dx) [facility] Comment on above: Acute hip pain, left (Primary Dx) Start: 05-29-2024 Influenza vaccination Influenza Vacc ine (#1) [facility] Start: 04-21-2024 Computed tomography of abdomen and pelvis with contrast CT abdomen pelvis w con [facility] Start: 04-21-2024 [facility] Start: 04-21-2024 Hepatic function panel [facility] Start: 04-21-2024 [facility] Start: 04-13-2024 End: 04-13-2024 Patient encounter procedure 04/13/2024 11:10 AM EDT Office Visit [facility] [address] [facility] [address] [place] [phone] Charmaine Pinedo MD [address] [facility] [place] [address] [facility] Start: 09-29-2023 FUV, Provider: Charmaine Pinedo, Status: Pen, Time: 10:40 AM FUV, Provider: Charmaine Pinedo, Status: Pen, Time: 10:40 AM [facility]-[place] 250 DO Work Phone: Start: 09-29-2023 End: 09-29-2023 Patient encounter procedure 09/29/2023 10:40 AM EST Office Visit [facility] [address] [facility] [address] [place] [address] Charmaine Pinedo MD [address] [facility] [address], [address] [place] [address] [facility] Start: 05-29-2023 COVID-19 Vaccine () COVID-19 Vaccine () [facility] Start: 05-29-2023 Influenza vaccination Influenza Vacc ine (#1) [facility] Start: 04-16-2023 FUV, Provider: Charmaine Pinedo, Status: Pen, Time: 10:40 AM FUV, Provider: Charmaine Pinedo, Status: Pen, Time: 10:40 AM -[facility] Track-[place] 250 DO Work Phone: Start: 03-19-2023 Plain chest X-ray XR chest 2V* [facility] Start: 03-19-2023 XR Chest 2 Views [facility] Start: 10-14-2022 FUV, Provider: Charmaine Pinedo, Status: Pen, Time: 11:40 AM FUV, Provider: Charmaine Pinedo, Status: Pen, Time: 11:40 AM -[facility]-[place] [address] DO Work Phone: Start: 09-10-2022 FUV, Provider: Charmaine Pinedo, Status: Pen, Time: 10:40 AM FUV, Provider: Charmaine Pinedo, Status: Pen, Time: 10:40 AM [facility] 250 DO Work Phone: Start: 03-04-2022 FUV, Provider: Charmaine Pinedo, Status: Pen, Time: 3:30 PM FUV, Provider: Charmaine Pinedo, Status: Pen, Time: 3:30 PM [facility] Work Phone: Start: 11-12-2021 COVID-19 Vaccine (4 - Pfizer series) COVID-19 Vaccine (4 - Pfizer series) [facility] Start: 10-31-2021 FUV, Provider: Charmaine Pinedo, Status: Pen, Time: 9:15 AM FUV, Provider: Charmaine Pinedo, Status: Pen, Time: 9:15 AM [facility] [address] [place] Work Phone: Start: 09-08-2017 Pneumococcal Vaccine : 65+ Years (2 - PPSV23 or PCV20) Pneumococcal Vaccine: 65+ Years (2 - PPSV23 or PCV20) [facility] Start: 09-08-2017 Pneumococcal Vaccine : 65+ Years (2 of 2 - PPSV23 or PCV20) Pneumococcal Vaccine: 65+ Years (2 of 2 - PPSV23 or PCV20) [facility] Start: 11-03-2016 Pneumococcal Vaccine : 65+ Years (2 of 2 - PPSV23 or PCV20) Pneumococcal Vaccine: 65+ Years (2 of 2 - PPSV23 or PCV20) [facility] Start: 2001 RSV patient s and/or patients aged 60+ years (1 - 1-dose 60+ series) RSV patients and/or patients aged 60+ years (1 - 1-dose 60+ series) [facility] Start: 1991 Zoster Vaccines (1 o f 2) Zoster Vaccines (1 of 2) [facility] Start: 1959 Diabetes mellitus screening Diabetes Screening [facility] Start: 1941 Lipid panel Lipid Panel [facility] Start: 1941 Medicare Annual Wellness Visit Medicare Annual Wellness Visit (AWV) [facility] Start: 1941 Screening for osteoporosis Bone Density Scan [facility] Albumin/Globulin ratio [facility] Anion gap measurement [facility] aPTT in Platelet poo r plasma by Coagulation assay [facility] Basophils [#/volume] in Blood by Automated count [facility] Basophils/100 leukocytes in Blood by Automated count [facility] Bilirubin.indirect [Mass/volume] in Serum or Plasma [facility] Eosinophils/100 leukocytes in Blood by Automated count [facility] Erythrocyte distribution width [Ratio] by Automated count [facility] Erythrocytes [#/volu me] in Blood [facility] Globulin [Mass/volum e] in Serum [facility] Hematocrit [Volume Fraction] of Blood [facility] Hemoglobin [Mass/volume] in Blood [facility] INR in Platelet poor plasma by Coagulation assay [facility] Leukocytes [#/volume ] corrected for nucleated erythrocytes in Blood by Automated coun [facility] Leukocytes [#/volume ] in Blood [facility] Lymphocytes [#/volum e] in Blood by Automated count [facility] Lymphocytes/100 leukocytes in Blood by Automated count [facility] MCH [Entitic mass] b y Automated count [facility] MCHC [Mass/volume] b y Automated count [facility] MCV [Entitic volume] by Automated count [facility] Monocytes [#/volume] in Blood by Automated count [facility] Monocytes/100 leukocytes in Blood by Automated count [facility] Neutrophils [#/volum e] in Blood by Automated count [facility] Neutrophils/100 leukocytes in Blood by Automated count [facility] Nucleated erythrocyt es [Presence] in Blood by Automated count [facility] Patient Education [facility] Work Phone: Patient referral [facility] Work Phone: Platelet mean volume [Entitic volume] in Blood by Automated count [facility] Platelets [#/volume] in Blood [facility] Prothrombin time (PT) [facility] Immunizations Immunization Date Immunization Notes Care Provider Fa coreen 01-14-2022 diphtheria, tetanus toxoids and pertussis vaccine Raghav Mitchell Work Phone: -[facility] [address] DO Work Phone: 01-14-2022 tetanus toxoid, redu juan pablo diphtheria toxoid, and acellular pertussis vaccine, adsorbed Charmaine Pinedo MD Work Phone: [facility] Work Phone: 09-17-2021 Pfizer-BioNTech COVID-19 Vacc 30 MCG/0.3ML Intramuscular Suspension Raghav Mitchell Work Phone: [place] [address] DO Work Phone: 02-04-2021 Pfizer-BioNTech COVID-19 Vacc 30 MCG/0.3ML Intramuscular Suspension Raghav Mitchell Work Phone: [place] [address] DO Work Phone: 01-07-2021 Pfizer-BioNTech COVID-19 Vacc 30 MCG/0.3ML Intramuscular Suspension Raghav Mitchell Work Phone: [place] [address] DO Work Phone: 09-08-2016 pneumococcal conjuga te vaccine, 13 valent Raghav Mitchell Work Phone: [place] [address] DO Work Phone: Payers Date Payer Category Payer Self-pay [id number] 2021 Private Health Insurance [employer] [id number] 2006 Medicare [id number]. [id number] 1959 Medicare [id number] 1959 Unknown [id number] 2.16.840.1.868353.19 1941 Unknown [id number] 2.16.840.1.840319.3.579.2. 355 1941 Unknown [id number] 2.16.840.1.928190.3.579.2. 355 1941 Unknown [id number] 2.16.840.1.582439.3.579.2. 355 1941 Unknown [id number] 2.16.840.1.445803.3.579.2. 593 1941 Unknown [id number] 2.16.840.1.591021.3.579.2. 593 1941 Unknown [id number] 2.16.840.1.441977.3.579.2. 593 1941 Unknown [id number] 2.840.1.143108.3.579.2. 593 1941 Unknown [id number] 2.16840.1.975467.3.579.2. 593 1941 Unknown [id number] 2.840.1.846321.3.579.2. 593 1941 Unknown [id number] 2.16.840.1.983370.3.579.2. 356 1941 Unknown [id number] 2.16840.1.939936.3.579.2. 356 1941 Unknown [id number] 2.16.840.1.861483.3.579.2. 1286 1941 Unknown [id number] 2.16.840.1.484449.3.579.2. 1244 1941 Unknown [id number] 2.16.840.1.542520.3.579.2. 1244 1941 Unknown [id number] 2.16840.1.452111.3.579.2. 1259 1941 Unknown [id number] 2.16.840.1.493996.3.579.2. 125 1941 Unknown [id number] 2.16.840.1.399534.3.579.2. 125 1941 Unknown [id number] 2.16.840.1.424177.3.579.2. 125 1941 Unknown [id number] 2.16.840.1.933078.3.579.2. 125 1941 Unknown [id number] 2.16.840.1.680407.3.579.2. 125 1941 Unknown [id number] 2.16.840.1.728247.3.579.2. 1258 1941 Unknown [id number] 2.16.840.1.031388.3.579.2. 1258 1941 Unknown [id number] 2.16.840.1.703262.3.579.2. 125 1941 Unknown [id number] 2.16.840.1.019154.3.579.2. 1258 1941 Unknown [id number] 2.16.840.1.641362.3.579.2. 1258 1941 Unknown [id number] 2.16.840.1.849400.3.579.2. 1258 1941 Unknown [id number] 2.16.840.1.730328.3.579.2. 125 1941 Unknown [id number] 2.16.840.1.456040.3.579.2. 1259 Medicare [id number] Unknown [id number] Unknown Unknown [place] [id number] Unknown [id number] 2.16.840.1.866856.3.579.2. 531 Unknown [id number] 2.16.840.1.301539.3.579.2. 531 Unknown [id number] 2.16.840.1.849664.3.579.2. 531 Social History Date Type Detail Facility Start: 07-23-2023 End: 09-07-2024 Never a smoker Never a smoker -[facility] [address] DO Work Phone: Start: 07-23-2023 End: 09-07-2024 Sex Assigned At [facility] [email or web address] Other Start: 06-06-2022 End: 04-28-2023 Tobacco smoking status NHIS Never smoked tobacco (finding) [facility] Start: 1941 [facility] Assigned At [facility] Start: 04-28-2023 End: 07-10-2023 Tobacco use and exposure Smokeless tobacco non-user [facility] Work Phone: Start: 1940 [facility]: Start: 08-08-2023 End: 04-13-2024 Exposure to SARS-CoV-2 (event) Not sure [facility] Start: 09-18-2023 End: 11-02-2024 Alcohol intake Lifetime non-drinker (finding) [facility] Work Phone: Within the last year , have you been afraid of your partner or ex-partner? No [facility] Are you now , , , , never or living with a partner? [facility] How often to you hav e a drink containing alcohol? Never [facility] How many standard drinks containing alcohol do you have on a typical day? Patient does not drink [facility] How hard is it for you to pay for the very basics like food, housing, medical care, and heating Not very hard [facility] Do you feel stress - tense, restless, nervous, or anxious, or unable to sleep at night because your mind is troubled all the time - these days [OSQ] To some extent [facility] (I/We) worried whether (my/our) food would run out before (I/we) got money to buy more. Never true [facility] Start: 04-02-2023 Alcohol Comment Caffeine intak e: none [facility] Do you feel stress - tense, restless, nervous, or anxious, or unable to sleep at night because your mind is troubled all the time - these days [OSQ] Only a little [facility] NEGATED: Highlighted rowStart: NINF History of tobacco use Passive smoker [facility] Clinical Notes 07-24-2022 to 11-02-2024 Porfirio Rubio, DPM - 11/02/2024 10:45 AM Genny Worthington, VP [employer]ELOPMENT - 10/25/2024 10:31 AM ESTTelephone Encounter - Tiny Burris - 10/10/2024 3:44 PM Brian Mitchell, - 09/27/2024 11:20 AM EST Note Date & Type Note Facility 11-02-2024 History of Present illness Narrative Images from the original note were not included. Subjective Patient ID: Jessy Dow is a 84 y.o. female who presents for Nail care (Jessy Dow is a 84 y.o. female who presents for Nail care.). HPI Established patient presents to clinic for painful toenails. Review of Systems Constitutional: Negative for activity change and appetite change. Respiratory: Negative for chest tightness and shortness of breath. Cardiovascular: Positive for leg swelling. Negative for chest pain. Endocrine: Negative for cold intolerance and heat intolerance. Musculoskeletal: Positive for arthralgias. Skin: Negative for color change and wound. Allergic/Immunologic: Negative for immunocompromised state. Neurological: Negative for weakness and numbness. Hematological: Does not bruise/bleed easily. Psychiatric/Behavioral: Negative for agitation and behavioral problems. Medications Current Outpatient Medications: acetaminophen (Tylenol) 325 MG tablet, Take 1-2 tablets by mouth 2 (two) times a day as needed for mild pain, Disp: , Rfl: ciprofloxacin (Cipro) 500 MG tablet, 1 po bid until all taken., Disp: 14 tablet, Rfl: 0 cloNIDine (Catapres) 0.1 MG tablet, Take 0.1 mg by mouth Daily as needed for high blood pressure., Disp: , Rfl: Eliquis 5 MG tablet, Take 5 mg by mouth in the morning and 5 mg before bedtime., Disp: , Rfl: flecainide (Tambocor) 50 MG tablet, Take 0.5 tablets by mouth in the morning and 0.5 tablets before bedtime., Disp: , Rfl: furosemide (Lasix) 20 MG tablet, Take 1 tablet (20 mg) by mouth Daily, Disp: 30 tablet, Rfl: 0 hydrALAZINE (Apresoline) 100 MG tablet, Take 0.5 tablets (50 mg) by mouth in the morning and 0.5 tablets (50 mg) before bedtime., Disp: 30 tablet, Rfl: 0 irbesartan (Avapro) 150 MG tablet, Take 150 mg by mouth in the morning and 150 mg before bedtime., Disp: , Rfl: Multiple Vitamins-Minerals (Multivitamin Adult, Minerals,) tablet, Take 1 tablet by mouth 1 (one) time each day., Disp: , Rfl: spironolactone (Aldactone) 50 MG tablet, Take 50 mg by mouth in the morning., Disp: , Rfl: Allergies Doxycycline, Norah inhibitors, Amlodipine, Chlorthalidone, Clonidine, Codeine, Hydrochlorothiazide, Lisinopril, Loperamide, Nsaids, Other, Penicillins, Sulfanilamide, and Nifedipine Past Surgical History Past Surgical History: Procedure Laterality Date CATARACT EXTRACTION, BILATERAL Bilateral 2018 [facility] 2003 [facility] COLONOSCOPY 11/2017 -moderate sigmoid diverticular disease HEART CATH 01/17/2019 OTHER SURGICAL HISTORY avoiding seeds- Diverticulosis RI EXCISION THYROGLOSSAL DUCT CYST/SINUS TOTAL ABDOMINAL HYSTERECTOMY 1972 Family History Family History Problem Relation Name Age of Onset Heart disease Mother Hypertension Mother Heart disease Father Objective Physical Exam Constitutional: General: She is not in acute distress. Appearance: She is obese. HENT: Head: Normocephalic and atraumatic. Cardiovascular: Comments: DP and PT pulses weakly palpable 1/4 bilaterally. Plus one pitting edema bilateral lower extremities. Multiple telangiectasias and varicosities bilaterally. Pulmonary: Effort: Pulmonary effort is normal. No respiratory distress. Musculoskeletal: Cervical back: Neck supple. Comments: Severe pes planovalgus deformity worse on the right lower extremity. No obvious muscle deficits. Hallux valgus deformity bilaterally with prominent medial eminence. Multiple hammertoe contractures bilaterally. Skin: Capillary Refill: Capillary refill takes less than 2 seconds. Comments: 10 exhibit clinical mycosis with thickened appearance, yellow discoloration, crumbly texture and subungual debris. Tenderness to palpation: Hallux toenails bilaterally. All 10 toenails are elongated. Neurological: Mental Status: She is alert. Comments: No loss of protective sensation, gross sensation intact. Psychiatric: Mood and Affect: Mood normal. Behavior: Behavior normal. Assessment/Plan ICD-10-CM 1. Onychomycosis B35.1 2. Onychodystrophy L60.3 3. Pain in both feet M79.671 M79.672 Patient was examined and evaluated. 10 toenails were debrided in length and thickness today utilizing a nail nipper and electric bur needle grinder without incident. Patient noted relief of symptomatology post-debridement. I have recommended moisturizing the feet on a daily basis and discussed proper pedal hygiene. Follow-up 3 months for continued palliative foot care. This note was created with the assistance of a speech recognition program. While intending to generate a timely document that accurately reflects the content of the visit, no guarantee can be provided that every grammatical or spelling mistake has been or will be identified or corrected. Thank you for your understanding. Porfirio Rubio DPM documented in this encounter [facility] 10-25-2024 History of Present illness Narrative Pt was called and she reported her hip and knees are feeling better. She does not want to do formal therapy at this time. She will be discharged and if she needs further assistance she was told to get another referral. documented in this encounter [facility] 10-10-2024 Telephone encounter Note She was scheduled 10/05 for Eval and 10/07 but ended up cancelling also. [facility] 10-10-2024 Miscellaneous Notes She was scheduled 10/05 for Eval and 10/07 but ended up cancelling also. She called noting she is currently dealing w/ diverticulitis and feels starting PT up would not be good. I mentioned her Eval scheduled 10/17 can be moved to 10/24; but she said she'd feel better if we could RS her PT per her call back. documented in this encounter [facility] 10-10-2024 Telephone encounter Note She called noting she is currently dealing w/ diverticulitis and feels starting PT up would not be good. I mentioned her Eval scheduled 10/17 can be moved to 10/24; but she said she'd feel better if we could RS her PT per her call back. [facility] 10-03-2024 Telephone encounter Note She called noting her mother was dealing w/ other medical conditions at the time and requested to cx out a week or 2. We cx Eval and the 2 the following week and rs Eval for 10/17/24; she is scheduled out to 10/26. [facility] 10-03-2024 Miscellaneous Notes She called noting her mother was dealing w/ other medical conditions at the time and requested to cx out a week or 2. We cx Eval and the 2 the following week and rs Eval for 10/17/24; she is scheduled out to 10/26. documented in this encounter [facility] 09-27-2024 History of Present illness Narrative Images from the original note were not included. History of Present Illness The patient is an 84-year-old female who presents for evaluation of left leg swelling, hip pain, and diverticulitis. Pt c/o bilateral leg swelling left leg has more swelling. Pt states that when she spoke with the computer science instructor he told her he thinks it may be vascular. Pt states that her left side is hurting as well. Pt states she is not sure if it from her hip hurting. She reports that her legs are typically slender, but she has been experiencing swelling in both legs. The left leg is more swollen than the right. She contacted her healthcare provider, and the nurse suggested a potential vascular issue. She describes the skin on her legs as shiny and reports itching. The most severe pain is located at the base of her foot. She also experiences heel pain when sitting. She has attempted to elevate her legs using a wooten bag but finds it uncomfortable. She has not been able to wear her socks due to tightness. She has a history of a tendon issue in her ankle, which remains swollen most of the time. However, the current swelling in her leg is a new symptom that began less than 2 weeks ago. She has a history of taking Lasix and hydrochlorothiazide, which she discontinued due to joint pain. She has been unable to lift her leg due to hip pain. 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 She underwent an ultrasound of her carotid arteries. She is currently on spironolactone for this condition. She has been self-adjusting her spironolactone dosage, taking only half during the day as she found it effective. She did not take her morning dose today due to her appointment. She reports experiencing pain in her hip, which she describes as different from her back pain. She has been able to pass bowel movements in the last couple of days without any blood in the stool. She is unsure about the appearance of the stool. She has not had a colonoscopy for years and declined the last one because she did not want to be put to sleep. She used Cologuard instead. She reports no fever. She describes the pain as soreness that radiates up into her back. She has a history of severe sigmoid diverticulosis with recurrent diverticulitis episodes. She experienced prolonged diarrhea after recovering from diverticulitis. MEDICATIONS spironolactone SUBJECTIVE: MEDICATIONS: ALLERGIES Current Outpatient Medications Medication Instructions acetaminophen (Tylenol) 325 MG tablet 1-2 tablets, 2 times daily PRN cloNIDine (CATAPRES) 0.1 mg, Daily PRN Eliquis 5 mg, 2 times daily flecainide (Tambocor) 50 MG tablet 0.5 tablets, 2 times daily furosemide (LASIX) 20 mg, Oral, Daily hydrALAZINE (APRESOLINE) 50 mg, Oral, 2 times daily irbesartan (AVAPRO) 150 mg, 2 times daily Multiple Vitamins-Minerals (Multivitamin Adult, Minerals,) tablet 1 tablet, Daily spironolactone (ALDACTONE) 50 mg, Daily Allergies Allergen Reactions Norah Inhibitors Other Amlodipine Swelling and Unknown Chlorthalidone Other Reaction(s): severe hip pain Clonidine Unknown Other Reaction(s): Constipation, Mouth Dry Dry mouth Codeine Unknown Hydrochlorothiazide Diarrhea and Unknown Lisinopril Other Reaction(s): coughing Loperamide Other Reaction(s): trouble breathing Nsaids Other Reaction(s): doesn't tolerate Other GI intolerance Penicillins Other Reaction(s): as a child unsure of rxn Sulfanilamide Other Reaction(s): sick feeling Nifedipine Palpitations Depression: Not at risk (09/07/2024) PHQ-2 PHQ-2 Score: 0 REVIEW OF SYMPTOMS: Review of Systems OBJECTIVE: BP 136/68 Pulse 64 Temp 97.1 F Ht 5' 3 Wt 199 lb SpO2 99% BMI 35.25 kg/m No results found for this or any previous visit (from the past 6 weeks). Results Laboratory Studies Kidney function tests were normal. Imaging Scan of left leg was negative for clot. GENERAL EXAM: Physical Exam Physical Exam Lungs were auscultated. Heart was examined. ASSESSMENT AND PLAN: Assessment/Plan Diagnoses and all orders for this visit: Varicose veins of both legs with edema - furosemide (Lasix) 20 MG tablet; Take 1 tablet (20 mg) by mouth Daily Diverticulitis - metroNIDAZOLE (Flagyl) 500 MG tablet; Take 1 tablet (500 mg) by mouth in the morning and 1 tablet (500 mg) before bedtime. Do all this for 7 days. - doxycycline (Vibramycin) 100 MG capsule; Take 1 capsule (100 mg) by mouth in the morning and 1 capsule (100 mg) before bedtime. Do all this for 7 days. Take with at least 8 ounces (large glass) of water, do not lie down for 30 minutes after. Assessment & Plan 1. Left lower extremity edema. The scan results were negative for thrombosis, which is a positive outcome. The computer science instructor suspects a vascular etiology, potentially related to venous insufficiency. The skin appears shiny, indicating a need for renal support to facilitate fluid removal from the tissue. The diuretic effect of spironolactone may be insufficient, necessitating the use of furosemide. The possibility of congestive heart failure has been ruled out at this time. She is advised to elevate her leg while reading or engaging in other activities. The use of compression stockings is not recommended at this time. A prescription for furosemide 20 mg will be provided, to be taken once daily in the morning. She is also advised to consume potassium-rich foods such as bananas or prunes. If there is no improvement with furosemide, further investigation into potential vascular causes will be necessary. 2. Diverticulitis. Given her history of severe sigmoid diverticulosis with recurrent diverticulitis episodes, it is highly likely that she is experiencing another episode of diverticulitis. She will take Flagyl and doxycycline. No follow-ups on file. documented in this encounter [facility] 09-26-2024 History of Present illness Narrative Images from the original note were not included. NAME: Jessy Dow : 1940 HISTORY OF PRESENT ILLNESS: NEW PT Jessy Dow is an 84 y.o. @ female. NEW PT PRESENTS WITH (L) HIP DISCOMFORT. SYMPTOMS FOR ~2 WKS ; DENIES ANY INJURY - STATES SHE WOKE ONE MORNING WITH PAIN XRAYS DONE TODAY, 09/26/24 IN EPIC PAIN IS RESOLVING ; PAIN IS NOW INTERMITTENT WITH GETTING UP / DOWN OUT OF A CHAIR OR WHEN LAYING IN BED. PAIN IS MOSTLY LATERAL BUT CAN BE DIFFUSE - DENIES ANY RADIATING PAIN, NO N/T. NOTES SWELLING IN HER (L) KNEE - ELEVATES. TAKING TYLENOL / ALSO USES HEATING PAD. TAKES ELIQUIS - H/O A FIB PAST MEDICAL HISTORY: Past Medical History: Diagnosis Date A-fib ([facility]) [place] grade 3 cystocele Bradycardia 04/2019 COVID Diverticulosis Hot flashes Hx of being hospitalized 01/14/2019 [facility] adm with chest pain ; discharged 01/17/2019 Hx of being hospitalized 11/04/2018 [facility] Adm [facility] 11/05/2018 hypertension Hx of being hospitalized 08/16/2016 Adm to [facility] - Disch 08/17/2016 Hx of thyroglossal duct cyst Macular degeneration Personal history of other medical treatment LVB 9# 10oz PAST SURGICAL HISTORY: Past Surgical History: Procedure Laterality Date CATARACT EXTRACTION, BILATERAL Bilateral 2018 CHOLECYSTECTOMY [facility] COLONOSCOPY 2003 [facility] COLONOSCOPY 11/2017 -moderate sigmoid diverticular disease HEART CATH 01/17/2019 OTHER SURGICAL HISTORY avoiding seeds- Diverticulosis RI EXCISION THYROGLOSSAL DUCT CYST/SINUS TOTAL ABDOMINAL HYSTERECTOMY 1972 SOCIAL HISTORY: Social History Occupational History Not on file Tobacco Use Smoking status: Never Passive exposure: Never Smokeless tobacco: Never Vaping Use Vaping status: Never Used Substance and Sexual Activity Alcohol use: Never Comment: Caffeine intake: none Drug use: Never Sexual activity: Not Currently Partners: Male ALLERGIES: Allergies Allergen Reactions Norah Inhibitors Other Amlodipine Swelling and Unknown Chlorthalidone Other Reaction(s): severe hip pain Clonidine Unknown Other Reaction(s): Constipation, Mouth Dry Dry mouth Codeine Unknown Hydrochlorothiazide Diarrhea and Unknown Lisinopril Other Reaction(s): coughing Loperamide Other Reaction(s): trouble breathing Nsaids Other Reaction(s): doesn't tolerate Other GI intolerance Penicillins Other Reaction(s): as a child unsure of rxn Sulfanilamide Other Reaction(s): sick feeling Nifedipine Palpitations HOME MEDICATIONS: Current Outpatient Medications Medication Instructions acetaminophen (Tylenol) 325 MG tablet 1-2 tablets, 2 times daily PRN cloNIDine (CATAPRES) 0.1 mg, Daily PRN Eliquis 5 mg, 2 times daily flecainide (Tambocor) 50 MG tablet 0.5 tablets, 2 times daily hydrALAZINE (APRESOLINE) 50 mg, Oral, 2 times daily hyoscyamine (LEVSIN) 0.125 mg, Every 4 hours PRN irbesartan (AVAPRO) 150 mg, 2 times daily Multiple Vitamins-Minerals (Multivitamin Adult, Minerals,) tablet 1 tablet, Daily spironolactone (ALDACTONE) 50 mg, Daily REVIEW OF SYSTEMS: Review of Systems Vitals: Body mass index is 32.77 kg/m . Tobacco Use: Low Risk (09/26/2024) Patient History Smoking Tobacco Use: Never Smokeless Tobacco Use: Never Passive Exposure: Never Alcohol Use: Not At Risk (09/07/2024) AUDIT-C Frequency of Alcohol Consumption: Never Average Number of Drinks: Patient does not drink Frequency of Binge Drinking: Never PHYSICAL EXAM: Hip Musculoskeletal Exam Gait Gait is normal. Limp: left Inspection Leg length disparity: no discrepancy Right Edema: mild Left Erythema: none Ecchymosis: none Edema: moderate Edema comment: most prominenet dependent in left leg. Deformity: none Palpation Right Tenderness: present Lower lumbar region pain: mild Left Increased warmth: none Tenderness: present Greater trochanteric region pain: moderate Pubic rami pain: none Lower lumbar region pain: mild Range of Motion Left Left hip range of motion is within functional limits. Active ROM: normal and pain. Passive ROM: normal and pain. Strength Left Left hip strength is normal. Extension: 5/5. Flexion: 4+/5. Flexion is not affected by pain. Internal rotation: 5/5. External rotation: 5/5. Adduction: 5/5. Abduction: 5/5. Abduction is affected by pain. Neurovascular Left Left hip neurovascular exam is normal. Pulses - PT: normal Posterior tibial: 2+ Special Tests Left Log roll test: negative (discomfort lateral hip on end rom) ISIDORO test (left): negative Special tests additional comments: Notable tight hamstrings. Pt able to stand on one leg independently without pain.. SI joint appear nontender.. + pain to piriformis/ gluet tendon and hip bursa. General Constitutional: appears stated age Labored breathing: no Psychiatric: normal mood and affect Neurological: alert and oriented x3 Skin: intact Lymphadenopathy: none IMAGING: Procedures Orders Placed This Encounter Procedures XR hip left 2 or 3 views Order Specific Question: Reason for exam: Answer: PAIN Vascular US lower extremity venous duplex left Standing Status: Future Number of Occurrences: 1 Standing Expiration Date: 09/26/2025 Scheduling Instructions: STAT R/O DVT ; RANDY DYER ; PLEASE HOLD AND CALL WITH RESULTS Order Specific Question: Reason for exam: Answer: (L) CALF PAIN ; R/O DVT Ambulatory referral to Physical Therapy Standing Status: Future Standing Expiration Date: 03/27/2025 Referral Priority: Routine Referral Type: Consultation Referral Reason: Consult and Treat Referred to Provider: Jean Claude Chacon PT Requested Specialty: Physical Therapy Number of Visits Requested: 1 ASSESSMENT: ICD-10-CM 1. Acute hip pain, left M25.552 XR hip left 2 or 3 views Ambulatory referral to Physical Therapy 2. Left leg swelling M79.89 3. Trochanteric bursitis of left hip M70.62 Ambulatory referral to Physical Therapy 4. Pain of left calf M79.662 Vascular US lower extremity venous duplex left PLAN: Left hip pain, localized greater troch, improving since 2 wks ago, denies rash.. point tender to greater troch and xray neg for fracture.. recommend Therapy for stretching, decrease pain/ tylenol and ice. She declines hip bursa inject.. Recommend Ultrasound with left leg edema, calf pain . + hohmans. Pt has varicose veins but is also on eliquis... consider further work up with vascular r/o May- thurner syndrome. Pt will be watchful for symptoms of LLQ abdominal pain given her history of diverticulitis. Pt has unwanted s/e from steroid declines injection today . Consider CT / MRI of hip if symptom worsen, but currently appears improved from 2 wks ago. Questions answered in laymen terms at the bedside. The diagnosis, home exercise plan and any ongoing restrictions/ recommendations reviewed. If unable to be reached in office, I recommend evaluation at nearest Emergency Room if any symptoms worsened or new symptoms develop for requiring urgent evaluation. documented in this encounter [facility] 07-27-2024 History of Present illness Narrative Images from the original note were not included. Subjective Patient ID: Jessy Dow is a 84 y.o. female who presents for No chief complaint on file.. HPI Established patient presents to clinic for painful toenails. Review of Systems Constitutional: Negative for activity change and appetite change. Respiratory: Negative for chest tightness and shortness of breath. Cardiovascular: Positive for leg swelling. Negative for chest pain. Endocrine: Negative for cold intolerance and heat intolerance. Musculoskeletal: Positive for arthralgias. Skin: Negative for color change and wound. Allergic/Immunologic: Negative for immunocompromised state. Neurological: Negative for weakness and numbness. Hematological: Does not bruise/bleed easily. Psychiatric/Behavioral: Negative for agitation and behavioral problems. Medications Current Outpatient Medications: cloNIDine (Catapres) 0.1 MG tablet, Take 0.1 mg by mouth Daily as needed for high blood pressure., Disp: , Rfl: Eliquis 5 MG tablet, Take 5 mg by mouth in the morning and 5 mg before bedtime., Disp: , Rfl: flecainide (Tambocor) 50 MG tablet, Take 0.5 tablets by mouth in the morning and 0.5 tablets before bedtime., Disp: , Rfl: hydrALAZINE (Apresoline) 100 MG tablet, Take 0.5 tablets (50 mg) by mouth in the morning and 0.5 tablets (50 mg) before bedtime., Disp: 30 tablet, Rfl: 0 hyoscyamine (Levsin) 0.125 MG SL tablet, Take 0.125 mg by mouth every 4 (four) hours if needed for cramping, Disp: , Rfl: irbesartan (Avapro) 150 MG tablet, Take 150 mg by mouth in the morning and 150 mg before bedtime., Disp: , Rfl: Multiple Vitamins-Minerals (Multivitamin Adult, Minerals,) tablet, Take 1 tablet by mouth 1 (one) time each day., Disp: , Rfl: spironolactone (Aldactone) 50 MG tablet, Take 50 mg by mouth in the morning., Disp: , Rfl: Allergies Norah inhibitors, Amlodipine, Chlorthalidone, Clonidine, Codeine, Hydrochlorothiazide, Lisinopril, Loperamide, Nsaids, Other, Penicillins, Sulfanilamide, and Nifedipine Past Surgical History Past Surgical History: Procedure Laterality Date CATARACT EXTRACTION, BILATERAL Bilateral 2018 CHOLECYSTECTOMY [facility] COLONOSCOPY 2003 [facility] COLONOSCOPY 11/2017 -moderate sigmoid diverticular disease HEART CATH 01/17/2019 OTHER SURGICAL HISTORY avoiding seeds- Diverticulosis RI EXCISION THYROGLOSSAL DUCT CYST/SINUS TOTAL ABDOMINAL HYSTERECTOMY 1972 Family History Family History Problem Relation Name Age of Onset Heart disease Mother Hypertension Mother Heart disease Father Objective Physical Exam Constitutional: General: She is not in acute distress. Appearance: She is obese. HENT: Head: Normocephalic and atraumatic. Cardiovascular: Comments: DP and PT pulses weakly palpable 1/4 bilaterally. Plus one pitting edema bilateral lower extremities. Multiple telangiectasias and varicosities bilaterally. Pulmonary: Effort: Pulmonary effort is normal. No respiratory distress. Musculoskeletal: Cervical back: Neck supple. Comments: Severe pes planovalgus deformity worse on the right lower extremity. No obvious muscle deficits. Hallux valgus deformity bilaterally with prominent medial eminence. Multiple hammertoe contractures bilaterally. Skin: Capillary Refill: Capillary refill takes less than 2 seconds. Comments: 10 exhibit clinical mycosis with thickened appearance, yellow discoloration, crumbly texture and subungual debris. Tenderness to palpation: Hallux toenails bilaterally. All 10 toenails are elongated. Neurological: Mental Status: She is alert. Comments: No loss of protective sensation, gross sensation intact. Psychiatric: Mood and Affect: Mood normal. Behavior: Behavior normal. Assessment/Plan ICD-10-CM 1. Onychomycosis B35.1 2. Onychodystrophy L60.3 3. Pain in both feet M79.671 M79.672 Patient was examined and evaluated. 10 toenails were debrided in length and thickness today utilizing a nail nipper and electric bur needle grinder without incident. Patient noted relief of symptomatology post-debridement. I have recommended moisturizing the feet on a daily basis and discussed proper pedal hygiene. Follow-up 3 months for continued palliative foot care. This note was created with the assistance of a speech recognition program. While intending to generate a timely document that accurately reflects the content of the visit, no guarantee can be provided that every grammatical or spelling mistake has been or will be identified or corrected. Thank you for your understanding. Porfirio Rubio DPM documented in this encounter [facility] 05-12-2024 History of Present illness Narrative Images from the original note were not included. Jessy Dow is a 83 y.o. female presents with chief complaint of No chief complaint on file. HPI: HPI Had severe right abd. Pain. Taken per squad to [facility], but she left AMA 5 hours later. Went to [place] after that. Soreness has resolved a lot. Diverticulosis. History of Present Illness The patient presents for an ER follow-up. She visited the ER twice due to prolonged wait times. She was informed that she does not have diverticulitis, but does have numerous diverticula. A CT scan with contrast was performed, revealing stool and gas. Despite using a suppository, her pain had subsided by the time she arrived in [place]. Despite using a suppository in the morning, her pain persisted. Her blood pressure spiked to 173/72, despite taking her prescribed medications. After her CT scan, a doctor's commercial assistant reviewed her results and provided her with a copy of the results. She was informed that her pain could be due to stool and gas, a condition she has never experienced before. She has been experiencing excessive gas and burping, which is unusual for her. She is mindful of her diet and avoids consuming gassy foods. Bending over causes soreness in her lower left abdomen. Supplemental Information She went to Dr. Townsend in 03/2024 and he told her that she has lost 10 pounds. SUBJECTIVE: MEDICATIONS: ALLERGIES Current Outpatient Medications Medication Instructions cloNIDine (CATAPRES) 0.1 mg, Daily PRN Eliquis 5 mg, 2 times daily flecainide (Tambocor) 50 MG tablet 0.5 tablets, 2 times daily hydrALAZINE (APRESOLINE) 50 mg, Oral, 2 times daily hyoscyamine (LEVSIN) 0.125 mg, Every 4 hours PRN irbesartan (AVAPRO) 150 mg, 2 times daily Multiple Vitamins-Minerals (Multivitamin Adult, Minerals,) tablet 1 tablet, Daily spironolactone (ALDACTONE) 50 mg, Daily Allergies Allergen Reactions Norah Inhibitors Other Amlodipine Swelling and Unknown Chlorthalidone Other Reaction(s): severe hip pain Clonidine Unknown Other Reaction(s): Constipation, Mouth Dry Dry mouth Codeine Unknown Hydrochlorothiazide Diarrhea and Unknown Lisinopril Other Reaction(s): coughing Loperamide Other Reaction(s): trouble breathing Nsaids Other Reaction(s): doesn't tolerate Other GI intolerance Penicillins Other Reaction(s): as a child unsure of rxn Sulfanilamide Other Reaction(s): sick feeling Nifedipine Palpitations Depression: Not at risk (02/01/2024) PHQ-2 PHQ-2 Score: 0 REVIEW OF SYMPTOMS: Review of Systems OBJECTIVE: BP 132/76 Pulse 68 Temp 98 F Ht 5' 3 Wt 196 lb BMI 34.72 kg/m No results found for this or any previous visit (from the past 6 weeks). Results Laboratory Studies White blood cell count was good. Hemoglobin was 10.3. Liver functions were all good. Imaging CT scan showed diverticulosis, stool and gas were found. GENERAL EXAM: Physical Exam Physical Exam Gastrointestinal system is soft with no guarding. 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 Diverticulosis. Her white blood cell count and liver functions were within normal limits. The soreness in her lower left abdomen could be muscular in nature. She was advised to consume dairy products such as cheese, milk, beans, cauliflower, and broccoli. Should she experience persistent pain or fever, an antibiotic will be prescribed. No follow-ups on file. documented in this encounter [facility] 04-13-[facility] History of Present illness Narrative Subjective Jessy Dow is a 83 y.o. female HPI Patient is in the office for follow-up for the problems noted below. She lost 10 pounds since the last visit due to diverticulitis, she was found to have anemia with a hemoglobin just under 10 g/dL recently without obvious blood loss but she is microcytic given the fact that she has diverticulitis and has been on Eliquis I advised patient to consider colonoscopy which she will follow. EKG today confirmed normal sinus rhythm with right bundle branch block. Patient has occasional palpitations and not necessarily indicating recurrent atrial fibrillation. They are short-lived for only seconds. Her pressure is under control on medications. Kidney function is normal. Her cardiac and pulmonary examinations were unremarkable. Lab data from several months ago and from recent testing were reviewed with her. ASSESSMENT AND PLAN: 1. Paroxysmal atrial fibrillation, on flecainide and Eliquis. The patient is on a very small dose flecainide due to previous intolerance to higher dose with severe bradycardia 2. High-risk medication, Eliquis and flecainide, so far both are well-tolerated at the present doses 3. Class I obesity, due to diverticulitis and dietary restrictions her weight has dropped 10 pounds which is a good thing 4. Essential hypertension, presently controlled 5. Microcytic anemia indicating GI blood loss due to diverticulitis. She did not tolerate iron supplements and I recommended that she see gastroenterology for possible colonoscopy 6. Chronic venous insufficiency bilaterally leading to significant varicose vein and mild lower extremity edema. Leg elevation when possible and compression stockings were recommended. No medical therapy is recommended Charmaine Pinedo MD, [facility] Review of Systems All other systems reviewed and are negative. Vitals: 04/13/24 1115 BP: 118/70 BP Location: Right arm Patient Position: Sitting Pulse: 65 Weight: 89.3 kg (196 lb 12.8 oz) Height: 1.6 m (5' 3 ) EKG done in office today Objective Physical Exam Constitutional: Appearance: Normal appearance. HENT: Nose: Nose normal. Neck: Vascular: No carotid bruit. Cardiovascular: Rate and Rhythm: Normal rate. Pulses: Normal pulses. Heart sounds: Normal heart sounds. Pulmonary: Effort: Pulmonary effort is normal. Abdominal: General: Bowel sounds are normal. Palpations: Abdomen is soft. Musculoskeletal: General: Normal range of motion. Cervical back: Normal range of motion. Right lower leg: No edema. Left lower leg: No edema. Skin: General: Skin is warm and dry. Neurological: General: No focal deficit present. Mental Status: She is alert. Psychiatric: Mood and Affect: Mood normal. Behavior: Behavior normal. Thought Content: Thought content normal. Judgment: Judgment normal. Allergies Norah inhibitors, Amlodipine, Chlorthalidone, Clonidine, Codeine, Hydrochlorothiazide, Loperamide, Penicillins, Sulfamethoxazole, and Nifedipine Current Medications Current Outpatient Medications: cloNIDine (Catapres) 0.1 mg tablet, Take 1 tablet (0.1 mg) by mouth if needed for high blood pressure (Take for readings above 160, repeat in 1 hour)., Disp: 60 tablet, Rfl: 11 Eliquis 5 mg tablet, Take 1 tablet (5 mg) by mouth 2 times a day., Disp: 180 tablet, Rfl: 3 flecainide (Tambocor) 50 mg tablet, TAKE 1/2 (ONE-HALF) OF A TABLET BY MOUTH TWICE DAILY, Disp: 90 tablet, Rfl: 3 hydrALAZINE (Apresoline) 100 mg tablet, Take 1 tablet (100 mg) by mouth 2 times a day. (Patient taking differently: Take 0.5 tablets (50 mg) by mouth 2 times a day.), Disp: 180 tablet, Rfl: 3 hyoscyamine (Anaspaz, Levsin) 0.125 mg tablet, Take 1 tablet (0.125 mg) by mouth every 6 hours if needed for cramping (abdominal pain)., Disp: , Rfl: irbesartan (Avapro) 150 mg tablet, TAKE 1 TABLET BY MOUTH EVERY 12 HOURS, Disp: 180 tablet, Rfl: 3 spironolactone (Aldactone) 50 mg tablet, Take 1 tablet (50 mg) by mouth once daily., Disp: , Rfl: magnesium oxide (Mag-Ox) 400 mg (241.3 mg magnesium) tablet, Take 1 tablet (400 mg) by mouth 2 times a day. (Patient not taking: Reported on 04/13/2024), Disp: 180 tablet, Rfl: 3 Assessment/Plan 1. Paroxysmal atrial fibrillation (Multi) Follow Up In Cardiology ECG 12 Lead 2. Essential hypertension, benign Follow Up In Cardiology 3. Right bundle branch block (RBBB) on electrocardiography 4. Anticoagulated 5. Never smoked any substance 6. BMI 34.0-34.9,adult 7. Microcytic anemia 8. High risk medication use 9. Diverticulitis Scribe Attestation By signing my name below, IRose Marie LPN, Scribe attest that this documentation has been prepared under the direction and in the presence of Charmaine Pinedo MD. Provider Attestation - Scribe documentation All medical record entries made by the Scribe were at my direction and personally dictated by me. I have reviewed the chart and agree that the record accurately reflects my personal performance of the history, physical exam, discussion and plan. documented in this encounter [facility] Work Phone: 04-13-2024 Instructions Rose Marie Yadav LPN - 04/13/2024 11:10 AM EDT Please bring all medicines, vitamins, and herbal supplements with you when you come to the office. Prescriptions will not be filled unless you are compliant with your follow up appointments or have a follow up appointment scheduled as per instruction of your physician. Refills should be requested at the time of your visit. BMI was above normal measurement. Current weight: 89.3 kg (196 lb 12.8 oz) Weight change since last visit (-) denotes wt loss -8.2 lbs Weight loss needed to achieve BMI 25: 56 Lbs Weight loss needed to achieve BMI 30: 27.8 Lbs Provided instructions on dietary changes Provided instructions on exercise. Follow up with gastro/Dr. Edwards documented in this encounter [facility] Work Phone: 09-18-2023 History of Present illness Narrative Subjective [...] recommended. No medical therapy is recommended Charmaine Pinedo MD, FACC Review of Systems Cardiovascular: Positive [...] direction and in the presence of Charmaine Pinedo MD. documented in this encounter [facility] Work Phone: 09-18-2023 Instructions Natasha Aranda CMA - 09/18/2023 [...] of your visit. documented in this encounter [facility] Work Phone: 08-18-2023 History of Present illness Narrative Subjective [...] Up In Cardiology documented in this encounter [facility] Work Phone: 08-18-2023 Instructions Rose Marie Yadav LPN - 08/18/2023 8:30 AM EST Sep 2023 visit pending. Same meds documented in this encounter [facility] Work Phone: 07-24-2022 Evaluation note Encounter Date Diagnosis Assessment [...] - R19.8) PATIENT DOES USE THE BENEFIBER [employer] Other Evaluation noteNo InformationNort [employer] Other Evaluation noteNo assessment information available [facility] Work Phone: Evaluation note* Diagnosis Essential hypertension, benign documented in this encounter [facility] Work Phone: Evaluation note* Diagnosis Paroxysmal atrial fibrillation (CMS/HCC)- Primary Atrial fibrillation Essential hypertension, benign Never smoked any substance High risk medication use Class II obesity Premature atrial contractions Supraventricular premature beats documented in this encounter [facility] Work Phone: Evaluation note* Diagnosis Onychomycosis- Primary Dermatophytosis of nail Onychodystrophy Other specified disease of nail Pain in both feet documented in this encounter [facility] HealthcareEvaluation note* Diagnosis Other thrombophilia (CMS/HCC) Stricture of artery (CMS/HCC) Stricture of artery Other forms of angina pectoris (CMS/HCC) Angina pectoris, unspecified (CMS/HCC) documented in this encounter [facility] HealthcareEvaluation note* Diagnosis Paroxysmal atrial fibrillation (Multi)- Primary Atrial fibrillation Essential hypertension, benign Right bundle branch block (RBBB) on electrocardiography Anticoagulated Encounter for long-term (current) use of anticoagulants Never smoked any substance BMI 34.0-34.9,adult Microcytic anemia Unspecified iron deficiency anemia High risk medication use Diverticulitis Diverticulitis of colon (without mention of hemorrhage) documented in this encounter [facility] Work Phone: Evaluation note* Diagnosis Acute hip pain, left- Primary Left leg swelling Trochanteric bursitis of left hip Pain of left calf Pain of left calf documented in this encounter [facility] HealthcareEvaluation note* Diagnosis Varicose veins of both legs with edema- Primary Diverticulitis Diverticulitis of colon (without mention of hemorrhage) documented in this encounter [facility] HealthcareEvaluation note* Diagnosis Onychomycosis- Primary Dermatophytosis of nail Onychodystrophy Other specified disease of nail Pain in both feet documented in this encounter [facility] HealthcareHistory general Narrative - Reported* Type Description Date Medical History HTN Medical History a.fib Medical History diverticulitis Surgical History hysterectomy Surgical History Gallbladder Surgical History Appendix [employer] Other Reason for visit Narrative* Consultation (Routine) - Authorized Specialty Diagnoses / Procedures Referred By Contac t Referred To Contact Cardiology Diagnoses Paroxysmal atrial fibrillation (Multi) Procedures Follow Up In Cardiology Charmaine Pinedo MD [address] [facility] [address], [address] [place] [address] Cahrmaine Pinedo MD [address] [facility] [address], [facility] [address] [place] [address] Referral ID Status Reason Start Date Expiration Date V isits Requested Visits Authorized [id number] Authorized 09/18/2023 09/17/2024 1 1 [facility] Work Phone: Summary Purpose Family History No Family History [...] of cardiac di sorder: Sister(V17.49, Z82.49) Status:Active Relationship Condition Age at Onset Recorded Date/T reyna brother Unknown father Unknown mother Unknown Advance Directives No Advanced Directives Records Found [...] to be getting under control. * Charmaine Pinedo MD, FACC * JESSY DOW is being seen for a 6 month follow-up of. * Patient is in the office for follow-up for the problems noted below. She has done well since her last visit. She has a visit to the emergency department back in May 20[facility] at [facility] the recordfrom the visit were reviewed and [...] to be getting under control. * Charmaine Pinedo MD, FACC * JESSY DOW is being [...] No medical therapy is recommended * Charmaine Pinedo MD, [facility] Chief Complaint and Reason for Visit Chief Complaint cp Chief Complaint hypertension Chief Complaint Chest pain Chief Complaint Chest pain palpitations Chief Complaint ABD PAIN Reason for Referral Specialty Diagnoses / Procedures Referred By Vern quiroga Referred To Contact Diagnoses Paroxysmal atrial fibrillation (CMS/HCC) Procedures ECG 12 Lead Charmaine Pinedo MD [address] [place] [address] Referral ID Status Reason Start Date Expiration Date V isits Requested Visits Authorized [id number] Pending Review 09/18/2023 09/17/2024 1 1 Specialty Diagnoses / Procedures Referred By Vern quiroga Referred To Contact Cardiology Diagnoses Paroxysmal atrial fibrillation (CMS/HCC) Procedures Follow Up In Cardiology Charmaine Pinedo MD [address] [facility] [address], [address] [address] Charmaine Pinedo MD [address] [facility] [address], [address] [address] Referral ID Status Reason Start Date Expiration Date V isits Requested Visits Authorized [id number] Authorized 09/18/2023 09/17/2024 1 1 Additional Source Comments INFORMATION SOURCE (unrecogn ized section and content) DATE CREATED AUTHOR 12/02/2018 [facility] Healthcare DATE CREATED AUTHOR AUTHOR'S ORGANIZ ATION 02/11/2020 [facility] DATE CREATED AUTHOR AUTHOR'S ORGANIZ ATION 10/09/2022 [facility] DATE CREATED AUTHOR AUTHOR'S ORGANIZ ATION 04/17/2023 [facility] DATE CREATED AUTHOR AUTHOR'S ORGANIZ ATION 04/17/2023 [employer] DATE CREATED AUTHOR AUTHOR'S ORGANIZ ATION 09/24/2023 [facility] DATE CREATED AUTHOR AUTHOR'S ORGANIZ ATION 01/27/2024 [facility] DATE CREATED AUTHOR AUTHOR'S ORGANIZ ATION 09/14/2024 [facility] DATE CREATED AUTHOR AUTHOR'S ORGANIZ ATION 11/04/2024 [facility] REASON FOR VISIT (unrecogniz ed section and content) Reason Comments Hypertension Specialty Diagnoses / Procedures Referred By Contac t Referred To Contact Cardiology Diagnoses Essential hypertension, benign Procedures Follow Up In Cardiology Charmaine Pinedo MD [address] [facility] [address], [address] [address] Referral ID Status Reason Start Date Expiration Date V isits Requested Visits Authorized [id number] Authorized 07/23/2023 07/22/2024 1 1 Reason Comments Follow-up 6 months Specialty Diagnoses / Procedures Referred By Contac t Referred To Contact Diagnoses Paroxysmal atrial fibrillation (CMS/HCC) Procedures ECG 12 Lead Charmaine Pinedo MD [address] [place] [address] [address], [address] [address] Referral ID Status Reason Start Date Expiration Date V isits Requested Visits Authorized [id number] Pending Review 09/18/2023 09/17/2024 1 1 Reason Comments Pain Reason Comments Leg Swelling Reason Onset Date Comments Cx / Rs PT needed 10/03/2024 Reason Onset Date Comments CX PT 10/17 - 10/26/24 10/10/2024 Reason Comments Nail care Jessy Dow is a 84 y.o. female who presents for Nail care. Care Teams (unrecognized sec tion and content) Team Status: Inactive Member Role Status Dates Raghav Mitchell DO Primary Care Provider Active Natalie Brian DO Emergency Provider Active Team Status: Active Member Role Status Dates Raghav Mitchell DO Primary Care Provider Active Team Status: Inactive Member Role Status Dates Raghav Mitchell DO Primary Care Provider Active Gonzalo Smith Jr, MD Emergency Provider Active Jail Keeper Relationship Specialty Start Date End Date Raghav Mitchell DO [address] [place] [phone] PCP - General 02/08/20 Jail Keeper Relationship Specialty Start Date End Date Raghav Mitchell DO [address] [place] [address] PCP - General 02/08/20 Team Status: Inactive Member Role Status Dates Raghav Mitchell DO Primary Care Provider Active St art: April 21, 2024 End: April 21, 2024 Alvin Murphy DO Emergency Provider Active St art: April 21, 2024 End: April 21, 2024 Jail Keeper Relationship Specialty Start Date End Date Raghav Mitchell DO [address] [place] [address] PCP - ACO Reach 02/19/23 Raghav Mitchell DO [address] [place] [address] PCP - General Family Medicine 03/05/23 Charmaine Pinedo MD [address] [facility] [address] [place] [address] Referring Physician Cardiology 02/01/24 Porfirio Rubio DPM [address] [place] [phone] Referring Physician Podiatry 02/01/24 Jail Keeper Relationship Specialty Start Date End Date Raghav Mitchell, [address] [place] [address] PCP - ACO Reach 02/19/23 Raghav Mitchell DO [address] [place] [address] PCP - General Family Medicine 03/05/23 Charmaine Pinedo MD [address] [address] Referring Physician Cardiology 02/01/24 Porfirio Rubio DPM [address] [place] [address] Referring Physician Podiatry 02/01/24 Jail Keeper Relationship Specialty Start Date End Date Raghav Mitchell DO [address] [phone] PCP - General 02/08/20 Jail Keeper Relationship Specialty Start Date End Date Raghav Mitchell DO [address] [place] [address] PCP - ACO Reach 02/19/23 Raghav Mitchell, [address] [place] [address] PCP - General Family Medicine 03/05/23 Charmaine Pinedo MD [address] [address] Referring Physician Cardiology 02/01/24 Porfirio Rubio DPM [address] [place] [address] Referring Physician Podiatry 02/01/24 Jail Keeper Relationship Specialty Start Date End Date Raghav Mitchell DO [address] [place] [address] PCP - ACO Reach 02/19/23 Raghav Mitchell, [address] [place] [address] PCP - General Family Medicine 03/05/23 Charmaine Pinedo MD [address] [address] [place] [address] Referring Physician Cardiology 02/01/24 Porfirio Rubio DPM [address] [place] [address] Referring Physician Podiatry 02/01/24 Jail Keeper Relationship Specialty Start Date End Date Raghav Mitchell DO [address] [place] [address] PCP - ACO Reach 02/19/23 Raghav Mitchell DO [address] [place] [address] PCP - General Family Medicine 03/05/23 Charmaine Pinedo MD [address] [address] [place] [address] Referring Physician Cardiology 02/01/24 Porfirio Rubio DPM [address] [place] [phone] Referring Physician Podiatry 02/01/24 Jail Keeper Relationship Specialty Start Date End Date Raghav Mitchell DO [address] [facility] [address] [place] [address] PCP - ACO Reach 02/19/23 Raghav Mitchell DO [address] [facility] [address] [place] [address] PCP - General Family Medicine 03/05/23 Charmaine Pinedo MD [address] [address] [place] [address] Referring Physician Cardiology 02/01/24 Porfirio Rubio DPM [address] [place] [address] Referring Physician Podiatry 02/01/24 Jail Keeper Relationship Specialty Start Date End Date Raghav Mitchell DO [address] [facility] [address] [place] [address] PCP - ACO Reach 02/19/23 Raghav Mitchell DO [address] [facility] [address] [place] [address] PCP - General Family Medicine 03/05/23 Charmaine Pinedo MD [address] [address] Referring Physician Cardiology 02/01/24 Porfirio Rubio DPM [address] [place] [phone] Referring Physician Podiatry 02/01/24 Jail Keeper Relationship Specialty Start Date End Date Raghav Mitchell, [address] [place] [address] PCP - ACO Reach 02/19/23 Raghav Mitchell DO [address] [place] [address] PCP - General Family Medicine 03/05/23 Charmaine Pinedo MD [address] [address] Referring Physician Cardiology 02/01/24 Porfirio Rubio DPM [address] [place] [phone] Referring Physician Podiatry 02/01/24 Jail Keeper Relationship Specialty Start Date End Date Raghav Mitchell DO [address] [place] [address] PCP - ACO Reach 02/19/23 Raghav Mitchell DO [address] [place] [address] PCP - General Family Medicine 03/05/23 Charmaine Pinedo MD [address] [facility] [address] [place] [address] Referring Physician Cardiology 02/01/24 Porfirio Rubio DPM [address] [place] [phone] Referring Physician Podiatry 02/01/24 Goals (unrecognized section and content) Goals may [...] BE BASED ON THE PRIMARY CLINICAL RECORDS. [employer] provides no warranty or guarantee of the accuracy or completeness of information in this document.
--- NOTE | 2024-11-20 11:24 | ED_ITS ---
HPI - Abdominal Pain General Chief Complaint: Abdominal Pain Stated Complaint: ABDOMINAL PAIN Time Seen by Provider: 11/20/24 10:42 Source: patient Mode of arrival: walk-in History of Present Illness HPI narrative: cc = LLQ abd pain Patient has history of diverticulosis with occasional diverticulitis flares. She had to be placed on doxycycline a few weeks ago for sinus infection and since that time she has developed diarrhea. She has been eating yogurt daily for the last few days and the diarrhea has slowed down but she has now developed some left lower quadrant abdominal pain. She also states that she has not had a normal bowel movement for couple of days. She admits to a lot of of GI sensitivity with foods, but she also admits, on questioning, that most of her food comes out of either a can or a package for convenience. She does not have a local rehab therapy manager. No fever or chills. No nausea or vomiting. Pain is localized to the left lower quadrant and rated as moderate at this time. It was 2 out of 10 until this morning Related Data Home Medications ?Medication ?Instructions ?Recorded ?Confirmed apixaban 5 mg tablet (Eliquis) 5 mg PO Q12H 07/24/23 11/04/24 clonidine HCl 0.1 mg tablet 0.1 mg PO Q4H PRN hypertensive 07/24/23 11/04/24 emergency flecainide 50 mg tablet 25 mg PO Q12H 07/24/23 11/04/24 hydralazine 100 mg tablet 100 mg PO Q12H 07/24/23 11/04/24 irbesartan 150 mg tablet 150 mg PO BID 07/24/23 11/04/24 spironolactone 50 mg tablet 50 mg PO DAILY 07/24/23 11/04/24 nitrofurantoin 100 mg PO Q12H 11/04/24 11/04/24 monohydrate/macrocrystals 100 mg capsule Previous Rx's ?Medication ?Instructions ?Recorded benzonatate 100 mg capsule 100 mg PO BID PRN cough 7 days #14 11/04/24 caps doxycycline monohydrate 100 mg 100 mg PO BID 7 days #14 caps 11/04/24 capsule ciprofloxacin HCl 500 mg tablet 500 mg PO BID #14 tabs 11/20/24 (Cipro) metronidazole 500 mg tablet 500 mg PO Q8H 7 days #21 tabs 11/20/24 Allergies Allergy/AdvReac Type Severity Reaction Status Date / Time NORAH Inhibitors Allergy Severe Cough Verified 04/21/24 19:06 loperamide (From Imodium A-D) Allergy Severe Difficulty Verified 04/21/24 19:06 Breathing chlorthalidone AdvReac Severe Cramping Verified 04/21/24 19:06 of the Muscles clonidine AdvReac Severe Dry Mucus Verified 04/21/24 19:06 Membranes codeine AdvReac Severe Nausea Verified 04/21/24 19:06 doxycycline AdvReac Severe Diarrhea Verified 11/20/24 10:36 nifedipine AdvReac Severe Palpitation Verified 04/21/24 19:06 s Penicillins AdvReac Severe Unknown Verified 04/21/24 19:06 Sulfa (Sulfonamide AdvReac Severe Nausea Verified 04/21/24 19:06 Antibiotics) hydrochlorothiazide AdvReac Unknown Joint Pain Verified 04/21/24 19:06 norvasc AdvReac Intermediate swelling Uncoded 04/21/24 19:06 of the legs PFSH [facility] Medical History (Updated 11/20/24 @ 11:27 by Tommy Akins) History of right bundle branch block ?Z86.79 - Personal history of other diseases of the circulatory system (ICD- 10) History of paroxysmal atrial tachycardia ?Z86.79 - Personal history of other diseases of the circulatory system (ICD- 10) History of essential hypertension ?Z86.79 - Personal history of other diseases of the circulatory system (ICD- 10) Surgical History (Updated 07/24/23 @ 17:15 by George Taylor) History of throat surgery ?Z98.890 - Other specified postprocedural states (ICD-10) History of hysterectomy ?Z90.710 - Acquired absence of both cervix and uterus (ICD-10) History of colonoscopy ?Z98.890 - Other specified postprocedural states (ICD-10) History of cholecystectomy ?Z90.49 - Acquired absence of other specified parts of digestive tract (ICD- 10) History of cataract surgery ?Z98.49 - Cataract extraction status, unspecified eye (ICD-10) History of appendectomy ?Z90.49 - Acquired absence of other specified parts of digestive tract (ICD- 10) Social History Smoking status: Never smoker Little interest or pleasure in doing things: not at all Feeling down, depressed, or hopeless: not at all Exam Narrative Exam Narrative: Nurses notes and vital signs reviewed and patient is not hypoxic. afebrile General: Well-appearing and in no apparent distress. Skin: Warm, dry, no pallor noted. No rash Eye: Pupils are equal, round and EOMI. No scleral icterus. Ears, Nose, Mouth, and Throat: Oral mucosa is moist Cardiovascular: Regular Rate and Rhythm without murmur, gallop or rub. Respiratory: No accessory muscle use or respiratory distress. Lungs are clear to auscultation, no wheezing, rales or rhonchi Back: No CVA tenderness Musculoskeletal: normal ROM GI: Abdomen is soft, non-distended. Normal bowel sounds. No masses appreciated. Mild left lower quadrant tenderness to palpation. No rebound, guarding, or rigidity noted. Neurological: A&O x4. No cranial nerve dysfunction observed. No truncal ataxia. Moves all extremities. Sensation intact. Psychiatric: Cooperative and interactive. Normal mood and affect. Constitutional Vital Signs, click to edit/add: Last Vital Signs Temp 98.0 F 11/20/24 10:30 Pulse 85 11/20/24 10:30 Resp 20 11/20/24 10:30 BP 154/84 H 11/20/24 10:30 Pulse Ox 98 11/20/24 10:30 O2 Del Method Room Air 11/20/24 10:30 Course Vital Signs Vital signs: Vital Signs Temperature 98.0 F 11/20/24 10:30 Pulse Rate 85 11/20/24 10:30 Respiratory Rate 20 11/20/24 10:30 Blood Pressure 154/84 H 11/20/24 10:30 Pulse Oximetry 98 11/20/24 10:30 Oxygen Delivery Method Room Air 11/20/24 10:30 Temperature 98.0 F 11/20/24 10:30 Pulse Rate 85 11/20/24 10:30 Respiratory Rate 20 11/20/24 10:30 Blood Pressure 154/84 H 11/20/24 10:30 Pulse Oximetry 98 11/20/24 10:30 Oxygen Delivery Method Room Air 11/20/24 10:30 MDM - Abdominal Pain MDM Narrative Medical decision making narrative: Patient describes left lower quadrant pain that started a few days after experiencing diarrhea following doxycycline use. She has been taking probiotics, but likely has an imbalance of some with bacteria in the left lower quadrant. She may also be having an acute diverticulitis flare. Vital signs are normal and she is not in severe pain. She would like to forego testing at this time. I am agreeable with prescribing Cipro and Flagyl for her as well as encouraging her to use some MiraLAX to help with any potential constipation. I would also encourage her to increase her intake of fresh fruits and vegetables and avoid processed foods including canned meats and canned vegetables. I also encouraged her to take the Levsin which was previously prescribed and she has at home, to help with her pain. After long discussion with the patient and her daughter, everyone is agreeable on this plan. She will return to the ED if she worsens. Discharge Plan Discharge Chief Complaint: Abdominal Pain Clinical Impression: Abdominal pain Patient Disposition: Home, Self-Care Time of Disposition Decision: 11:27 Prescriptions / Home Meds: New ciprofloxacin HCl [Cipro] 500 mg tablet 500 mg PO BID Qty: 14 0RF metronidazole 500 mg tablet 500 mg PO Q8H 7 Days Qty: 21 0RF No Action Eliquis 5 mg tablet 5 mg PO Q12H clonidine HCl 0.1 mg tablet 0.1 mg PO Q4H PRN (Reason: hypertensive emergency) flecainide 50 mg tablet 25 mg PO Q12H hydralazine 100 mg tablet 100 mg PO Q12H irbesartan 150 mg tablet 150 mg PO BID spironolactone 50 mg tablet 50 mg PO DAILY nitrofurantoin monohyd/m-cryst 100 mg capsule 100 mg PO Q12H benzonatate 100 mg capsule 100 mg PO BID PRN (Reason: cough) 7 Days Qty: 14 0RF doxycycline monohydrate 100 mg capsule 100 mg PO BID 7 Days Qty: 14 0RF Print Language: Honduran Instructions: Abdominal Pain (ED) Referrals: ASHLEY PINEDA [Primary Care Provider] - 1 week
== END 2024-11-20 11:37 | disposition home or self-care (01) ==
PROVIDERS: Emergency Provider Emergency Medicine; PCP Family Medicine
DX: R10.84 Generalized abdominal pain (principal); R10.32 Left lower quadrant pain; R19.7 Diarrhea, unspecified
CPT/HCPCS: 99283

== ENCOUNTER 2024-12-02 13:00 | Outpatient (OUT) | payer MEDICARE, OTHER, SELFPAY ==
--- OUTSIDE RECORDS SUMMARY | 2024-12-02 13:18 | XMS_ITS | CCD ---
Author Organization [facility] Care Team Providers Care Regulatory Manager Name Role Phone CHARMAINE PINEDO Attending Unavailable RAGHAV MITCHELL Primary Care Unavailable JES KEITH Attending Unavailable RAGHAV MITCHELL Primary Care Unavailable JES KEITH Attending Unavailable RAGHAV MITCHELL Primary Care Unavailable Raghav Mitchell Unavailable Unavailable Unavailable George Adams Unavailable DO Raghav Mitchell Primary Care Provider DO Natalie Brian Emergency Provider Isrrael Aparicio Unavailable DR RAGHAV MITCHELL Primary Care Unavailable JEANINE NOLAN Admitting Unavailable JEANINE NOLAN Attending Unavailable JEANINE NOLAN Consulting Unavailable ANTONY, DR STACY Admitting Unavailable MISC, DR STACY Attending Unavailable STEPHEN, DR RAMIREZ Primary Care Unavailable MISC, DR STACY Consulting Unavailable LEAD, DR BOSCH Admitting Unavailable LEDA, DR BOSCH Attending Unavailable STEPHEN, DR RAMIREZ Primary Care Unavailable LEDA, DR BOSCH Consulting Unavailable Clementina Gandhi Consulting Unavailable STEPHEN, DR RAMIREZ Primary Care Unavailable JEANINE NOLAN Admitting Unavailable JEANINE NOLAN Attending Unavailable SHERON FLYNN Consulting Unavailable STEPHEN, DR RAMIREZ Primary Care Unavailable JEANINE NOLAN Admitting Unavailable JEANINE NOLAN Attending Unavailable JEANINE NOLAN Consulting Unavailable STEPHEN, DR RAMIREZ Primary Care Unavailable KERON, DR TRANG Goins Admitting Unavailkirill CABRALES, DR TRANG Goins Attending Unavailkirill CABRALES, DR TRANG Goins Consulting UnavailDO Raghav Garcia Primary Care Provider MD Gonzalo Smith Jr Emergency Provider Dr. Charmaine Pinedo Referring Cherri vailadaysi Mitchell, Dr. Raghav Wagner Primary Care Unavaila ble Pinedo, Dr. Charmaine Mancilla Attending Cherri vailable Jarek, Dr. Charmaine Mancilla Referring Cherri vailable Stephen, Dr. Raghav Wagner Primary Care Unavaila ble Pinedo, Dr. Charmaine Mancilla Attending Cherri vailable DO Raghav Mitchell Primary Care Provider Roc, Natalie Emergency Provider [phone] Raghav Mitchell DO Primary Care Provider [phone] DO Raghav Mitchell Primary Care Provider Roc, DO Natalie Emergency Provider Roc Natalie Admitting Unavailable Natalie Brian Attending Unavailable Raghav Mitchell Primary Care Unavailable Roc Natalie Admitting Unavailable Natalie Brian Attending Unavailable Raghav Mitchell Primary Care Unavailable Gonzalo Smith Jr Admitting Unavailable Gonzalo Smith Jr Attending Unavailable Raghav Mitchell Primary Care Unavailable PRISCA FORBES Referring Unavailable RAGHAV MITCHELL Primary Care Unavailable DO Raghav Mitchell Primary Care Provider [phone] DO Alvin Murphy Emergency Provider [phone] Raghav Mitchell DO Unavailable Raghav Mitchell DO Primary Care Provider [phone] Charmaine Pinedo MD Unavailable Porfirio Rubio DPM Unavailable PORFIRIO RUBIO Attending Unavailable ELTON OSCAR Attending Unavailable RAGHAV MITCHELL Referring Unavailable HOLLY BACON Attending Unavailable RAGHAV MITCHELL Referring Unavailable SUSAN MCMAHAN Attending Unavailable RAGHAV MITCHELL Referring Unavailable PORFIRIO RUBIO Attending Unavailable LORELEI PLUNKETT Attending Unavailable RAGHAV MITCHELL Referring Unavailable RAGHAV MITCHELL Attending Unavailable RAGHAV MITCHELL Referring Unavailable PORFIRIO RUBIO Attending Unavailable RAGHAV MITCHELL Attending Unavailable PORFIRIO RUBIO Attending Unavailable CHLOE MERCADO Attending Unavailable CHLOE MERCADO Referring Unavailable CHLOE MERCADO Referring Unavailable RAGHAV MITCHELL Attending Unavailable Raghav Mitchell DO Primary Care Provider CHARMAINE PINEDO Attending Unavailable CHARMAINE PINEDO Referring Unavailable RAGHAV MITCHELL Primary Care Unavailable CHARMAINE PINEDO Attending Unavailable CHARMAINE PINEDO Referring Unavailable RAGHAV MITCHELL Primary Care Unavailable Allergies Allergy Classification Reported Allergen(s) Allergy Type Date of Onset Reaction(s) Facility (20 sources) amLODIPine; Translations: [Norvasc] Drug Allergy 023 Unknown, Swelling [facility] [address] [place] Work Phone: (18 sources) Angiotensin Converting Enzyme (Norah) Inhibitors; Translations: [NORAH Inhibitors] Allergy to drug (finding) Cough [facility] (20 sources) Chlorthalidone; Translations: [chlorthalidone] Drug Allergy Myalgia [facility] (20 sources) cloNIDine; Translations: [clonidine] Drug Allergy 022 Other, Constipation, Unknown [facility] (20 sources) Codeine; Translations: [codeine] Drug Allergy 019 Nausea Only, Unknown [facility] (20 sources) hydroCHLOROthiazide; Translations: [hydrochlorothiazide] Drug Allergy 022 Unknown [facility] (20 sources) Loperamide; Translations: [Imodium] Drug Allergy 023 Nausea Only [facility] [address] [place] Work Phone: (20 sources) NIFEdipine; Translations: [NIFEdipine] Drug Allergy 022 Palpitations [facility] (19 sources) Penicillins; Translations: [Penicillins] Allergy to drug (finding) [facility] (18 sources) Sulfamethoxazole; Translations: [sulfa] Drug Allergy 023 Unknown [facility] [address] [place] Work Phone: (11 sources) Sulfonamides (Antibiotic); Translations: [Sulfa Drugs] Allergy to drug (finding) Nausea [facility] [address] [place] Work Phone: (3 sources) Loperamide Drug Allergy 022 Unknown [facility] (2 sources) Penicillins (Antibiotic) Propensity to adverse reactions Unknown [employer] Other (3 sources) Anti inflammatory Propensity to adverse reactions Unknown [facility] (7 sources) amLODIPine; Translations: [amlodipine] Drug Allergy Leg Swelling [facility] (7 sources) Loperamide; Translations: [loperamide] Drug Allergy Difficulty Swallowing [facility] (6 sources) Sulfonamides (Antibiotic); Translations: [Sulfa (Sulfonamide Antibiotics)] Propensity to adverse reactions Vomiting [facility] (1 source) amLODIPine Drug Allergy [facility] Repository (1 source) Angiotensin Converting Enzyme (Norah) Inhibitors Drug allergy (disorder) [facility] (1 source) Chlorthalidone Drug Allergy [facility] (1 source) Codeine Drug Allergy [facility] (1 source) Flupenthixol Drug Allergy [facility] (1 source) hydroCHLOROthiazide Drug Allergy [facility] (1 source) Loperamide Drug Allergy [facility] (1 source) Penicillin Drug Allergy [facility] (1 source) Sulfonamides (Antibiotic) Drug allergy (disorder) [facility] (4 sources) Angiotensin-convertin g enzyme inhibitor agent Drug Intolerance Cough [facility] (3 sources) Penicillins Drug Intolerance [facility] Work Phone: (1 source) Angiotensin Converting Enzyme (Norah) Inhibitors Drug allergy (disorder) [facility] Repository (1 source) Chlorthalidone Drug Allergy [facility] (1 source) cloNIDine Drug Allergy [facility] (1 source) Codeine Drug Allergy [facility] (1 source) hydroCHLOROthiazide Drug Allergy [facility] (1 source) NIFEdipine Drug Allergy [facility]ository (1 source) Penicillins Drug allergy (disorder) [facility] Repository (13 sources) Angiotensin-convertin g enzyme inhibitor agent Drug Allergy 019 Other [facility] (13 sources) Chlorthalidone Drug Allergy [facility] Work Phone: (13 sources) hydroCHLOROthiazide Drug Allergy Diarrhea, Unknown [facility] (13 sources) Lisinopril Allergy to substance [facility] (13 sources) Nifedipine Allergy to substance Palpitations [facility] (13 sources) Non-steroidal anti-inflammatory agent Drug Allergy 023 [facility] (13 sources) Penicillins Drug Allergy 023 [facility] (13 sources) Sulfanilamide Allergy to substance [facility] (13 sources) Other Propensity to adverse reactions GI intolerance [facility] (7 sources) Doxycycline; Translations: [DOXYCYCLINE] Drug Allergy 025 GI intolerance, Diarrhea [facility] Work Phone: (1 source) Sulfamethoxazole; Translations: [SULFAMETHOXAZOLE] Drug Allergy 023 [facility] 3 Repository Medications Current Medications Medication Drug [...] Not-Taking cloNIDine hydrochloride 0.1 mg oral tablet (19 sources) Central alpha-2 Adrenergic Agonist Start: 07-23-2023 End: 07-22-2024 take 1 tablet by mouth every hour for hypertension cloNIDine (Catapres) 0.1 mg tablet Indications: Essential hypertension, benign Take 1 tablet (0.1 mg) by mouth if needed for high blood pressure (Take for readings above 160, repeat in 1 hour). 60 tablet 11 07/23/2023 Active Start: 07-23-2023 take 1 tablet by mendoza th every twenty-four hours as needed for hypertension cloNIDine (Catapres) 0.1 MG tablet Take 0.1 mg by mouth Daily as needed for high blood pressure. 07/23/2023 Active docusate sodium 100 mg oral capsule [...] oral tablet (20 sources) Arteriolar Vasodilator Start: 08-10-2024 End: 08-10-2025 take 1 tablet by mouth twice daily hydrALAZINE (Apresoline) 100 mg tablet Indications: Essential hypertension, benign Take 1 tablet (100 mg) by mouth 2 times a day. 180 tablet 3 08/10/2024 08/10/2025 Active Start: 12-30-2023 take 0.5 tablet by m outh in the morning hydrALAZINE (Apresoline) 100 MG [...] day. 180 tablet 3 09/18/2023 09/17/2024 Active metoprolol tartrate 25 mg oral tablet (1 source) beta-Adrenergic [place] Start: 11-25-2024 metoprolol tartrate (Lopressor) 25 mg tablet Indications: Paroxysmal atrial fibrillation (Multi) Take one tablet as needed for break through a fib 20 tablet 1 11/25/2024 Active metroNIDAZOLE 500 mg oral tablet (5 [...] oral tablet (20 sources) Aldosterone Antagonist Start: 025 End: 026 take 1 tablet by mouth once daily spironolactone (Aldactone) 50 mg tablet Indications: Essential (primary) hypertension Take 1 tablet (50 mg) by mouth once daily. 90 tablet 3 11/04/2024 11/04/2025 Active Start: 07-27-2023 take 50 mg by mouth [...] 50 mg by mouth once daily Spironolactone Disckennedy braswell 50 MG PO Daily November 10, 2020 1:00am December 22, 2020 9:17am Spironolactone A ctive sucralfate 1000 mg oral tablet (1 source) Aluminum Complex Start: 12-25-2021 take 1 tablet by mouth every twelve hours Sucralfate 1 GM 1 tablet on an empty stomach Orally Twice a day for 30 day(s) Nov, Active Completed/Discontinued Medications Medication Drug Class(es) Dates Sig (Normalized) Sig (Original) [id number] 200 actuat albuterol 0.09 mg/actuat metered dose [...] Carvedilol Discontinued 6.25 MG PO Q12H 60 November 05, 2018 1:00am January 14, 2019 [...] PLEASE CHECK ALLERGIES Nov, Not-Taking estrogens, conjugated (care home) 0.625 mg oral tablet (7 sources) Estrogen Start: 11-30-2017 End: 01-14-2019 take 1 tablet by mouth once daily Conjugated Estrogens (Premarin) 0.625 mg Tablet Discontinued 0.625 MG PO Daily November 30, 2017 1:00am January 14, 2019 6:49pm hyoscyamine sulfate 0.125 mg sublingual tablet (19 sources) Start: 04-22-2024 End: 09-27-2024 take 1 [...] [Angina pectoris, unspecified] Onset: 12-08-2023 01-16-2019 Chronic Deficiency and other anemia (1 source) Iron deficiency anemia due to blood loss; Translations: [Iron deficiency anemia secondary to blood loss (chronic)] 11-25-2024 Chronic Diverticulosis and diverticulitis (20 sources) Diverticulitis of colon; Translations: [Diverticulitis of colon (without mention of hemorrhage)] Onset: 10-29-2021 Chronic Essential hypertension (20 sources) Essential (primary) hypertension; Translations: [Benign essential hypertension] Onset: 11-24-2018 04-01-2019 Chronic Mycoses (2 sources) Onychomycosis; Translations: [Tinea unguium] 07-27-2024 Episodic Osteoarthritis (13 sources) Osteoarthritis; Translations: [Unspecified osteoarthritis, unspecified site] Onset: 03-04-2023 03-04-2023 Chronic Other aftercare (20 sources) Drug therapy finding; Translations: [Long-term (current) use of other medications] Onset: 07-09-2023 07-09-2023 Episodic Other aftercare (10 sources) Long-term current use of anticoagulant; Translations: [Long-term (current) use of anticoagulants] Episodic Other aftercare (1 source) Other fpc (current) drug therapy; Translations: [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] Onset: 09-30-2022 Episodic Other aftercare (3 sources) Taking high risk medication; Translations: [Other technician terminal and repeater (current) drug therapy] 09-18-2023 Episodic Other circulatory disease (2 sources) Stricture [...] Episodic Other nutritional; endocrine; and metabolic disorders (5 sources) Body mass index 30+ - obesity; Translations: [Body Mass Index 35.0-35.9, adult] Onset: 04-13-2024 04-13-2024 Chronic Other nutritional; endocrine; and metabolic disorders (1 source) Simple obesity ; Translations: [Obesity, unspecified] Chronic Other nutritional; endocrine; and metabolic disorders (5 sources) Obese class II; Translations: [Body mass index (BMI) 37.0-37.9, adult] 09-18-2023 Chronic Other nutritional; endocrine; and metabolic disorders (1 source) Obese class I; Translations: [Obesity, Class I, BMI 30-34.9] 11-25-2024 Chronic Other nutritional; endocrine; and metabolic disorders (2 sources) Body mass index (BMI) 32.0-32.9, adult; Translations: [Body mass index (BMI) 32.0-32.9, adult] Onset: 11-25-2024 Chronic Other nutritional; endocrine; and metabolic disorders (2 sources) Body mass index (BMI) 34.0-34.9, adult; Translations: [Body mass index (BMI) 34.0-34.9, adult] Onset: 04-13-2024 Chronic Other skin disorders (2 sources) Dystrophia unguium; Translations: [Nail dystrophy] 07-27-2024 Episodic Residual codes; unclassified (6 sources) Never smoked any substance; Translations: [Other specified health status] Onset: 09-18-2023 09-18-2023 Episodic Retinal detachments; defects; vascular occlusion; and retinopathy (1 source) Retinal ischemia; 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] Onset: 01-26-2024 Chronic Unclassified (3 sources) Other fpc (current) drug therapy; Translations: [Other technician terminal and repeater (current) drug therapy] Onset: 2018 Viral infection [...] unspecified] 04-13-2024 Episodic Deficiency and other anemia (2 sources) Anemia; Translations: [Anemia, unspecified] Onset: 04-13-2024 04-13-2024 [...] INITIAL ENC] Onset: 01-14-2022 Episodic Other aftercare (3 sources) 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 of anticoagulants; Translations: [PRISON CURRNT USE ANTICOAGULANTS] Onset: 12-18-2021 Episodic Other circulatory disease (18 sources) Elevated [...] Episodic Other nutritional; endocrine; and metabolic disorders (14 sources) Obesity; Translations: [Obesity, unspecified] Onset: 07-09-2023 Resolved: 09-18-2023 07-09-2023 Chronic Other upper respiratory disease (13 sources) Feeling of lump in throat; Translations: [Globus sensation] Onset: 03-04-2023 03-04-2023 Episodic Residual codes; unclassified (18 sources) Bilateral lower limb edema; Translations: [Localized edema] Onset: 12-08-2023 04-01-2019 Episodic Residual codes; unclassified (2 sources) Other specified health status; Translations: [Other specified health status] Onset: 09-18-2023 Episodic Skin and subcutaneous tissue infections (1 source) Cellulitis of left upper limb; Translations: [CELLULITIS OF LEFT UPPER LIMB] Onset: 01-16-2022 Episodic Unclassified (10 sources) Never smoked tobacco; Translations: [Never a smoker] Unclassified (16 sources) Onset: 09-18-2023 Resolved: 11-25-2024 09-18-2023 Urinary tract infections (18 sources) Cystitis; [...] Interpretation Reference Range Facility ECG 12 Leadon 11-25-2024 ECG revealed normal sinus rhythm, left axis deviation, right bundle branch block, diffuse repolarization abnormalities, abnormal ECG [facility] Work Phone: XR Hip - left 3 Viewson 3 Imaging Result: Left Hip AP and Lateral No acute fracture or dislocation Mild osteopenic appearance Symmetric minimal joint space narrowing at femoral head/ acetabular joint No visible stress fracture or periosteal reaction. Mild small enthesophyte at greater trochanter. Impression: no acute bony process left hip. [facility] US.doppler Lower extremity v ein - [facility] thumb regionfrederick 09-26-2024 TITLE OF EXAM: [facility] US LOWER EXTREMITY VENOUS DUPLEX LEFT [...] signed in approved by the interpreting radiologist. IMAGING Austin Dunbar MD - 09/26/2024 TITLE OF EXAM: VASC US LOWER EXTREMITY VENOUS DUPLEX LEFT REASON [...] signed in approved by the interpreting radiologist. [facility]MP[facility] Radiology Study observation (narrative) [facility] US.doppler Lower extremity v ein - leftOrdered By: Austin Dunbar on 09-26-2024 [facility] Work Phone: [facility] US LOWER EXTREMITY VENO US DUPLEX LEFTon 09-26-2024 VASC US LOWER EXTREMITY VENOUS DUPLEX LEFT TITLE OF EXAM: VASC US LOWER EXTREMITY VENOUS DUPLEX LEFT REASON [...] Available XR Hip - left 3 Viewson 12-3 Radiology Study observation (narrative) [facility] XMPie ECG 12 Leadon 04-13-2024 ECG revealed normal sinus rhythm with right bundle branch block [facility] Work Phone: ECG 12 Leadon 09-18-2023 ECG revealed normal sinus rhythm with right bundle branch block [facility] Work Phone: Activated partial thrombopla stin time (aPTT) in platelet poor plasma by coagulation aOrdered By: Natalie Brian on 09-01-2023 aPTT Coag (PPP) [Time] 38.3 s 25.1-36.5 [facility] Comment on above: A hematocrit value g reater than 55% may lead to inaccurate results in coagulation testing. Patients having hematocrit values >55% require a special collection tube for coagulation studies. Please contact the laboratory at [phone] for redraw instructions. B-Type Natriuretic Peptideon 09-01-2023 Natriuretic peptide B (Bld) [Mass/Vol] 126.0 pg/mL High 5-100 [facility] Comment on above: Result Comment: PERF ORMED BY: [facility] [address] [place] [address] PATHOLOGIST MOLD CARRIER ROWAN IRWIN M.D. Performed By: #### C K, CBC, PTT, HS TROP, BMP, BNP, PT ####[address] [place] [address] [facility] Basic Metabolic Panelon 12-0 Anion gap [Moles/Vol] 11.0 mmol/L Normal 6.0-15.0 [facility] Comment on above: Performed By: #### C K, CBC, PTT, HS TROP, BMP, BNP, PT ####[facility] [place] [address] [facility] Calcium [Mass/Vol] 9.1 mg/dL Normal 8.6-10.3 [facility] Comment on above: Performed By: #### C K, CBC, PTT, HS TROP, BMP, BNP, PT ####[facility] [place] [address] [facility] Chloride [Moles/Vol] 107 mmol/L Normal 98-107 [facility] Comment on above: Performed By: #### C K, CBC, PTT, HS TROP, BMP, BNP, PT ####[facility] [place] [id number] [facility] CO2 [Moles/Vol] 24.0 mmol/L Normal 21.0-31.0 [facility] Comment on above: Performed By: #### C K, CBC, PTT, HS TROP, BMP, BNP, PT ####[address] [place] [id number] [facility] Creatinine [Mass/Vol] 0.93 mg/dL Normal 0.60-1.20 [facility] Comment on above: Performed By: #### C K, CBC, PTT, HS TROP, BMP, BNP, PT ####[address] [place] [id number] [facility] Creatinine Clr Calc Pharmacy 50.24 [facility] Comment on above: Result Comment: PERF ORMED BY: [facility] [address] [address] PATHOLOGIST MOLD CARRIER ROWAN IRWIN M.D. Performed By: #### C K, CBC, PTT, HS TROP, BMP, BNP, PT ####[address] [place] [id number] [facility] GFR/1.73 sq M.predicted MDRD (S/P/Bld) [Vol rate/Area] mL/min/{1.73_m2} [facility] Comment on above: Performed By: #### C K, CBC, PTT, HS TROP, BMP, BNP, PT ####[place] [id number] [facility] Glucose [Mass/Vol] 146 mg/dL High 70-100 [facility] Comment on above: Result Comment: [place] Glucose Reference Range is dependent on time and content of last meal. Glucose of more than 200 mg/dL in a nonstressed, ambulatory subject supports the diagnosis of Diabetes Mellitus. ADA recommended reference range Performed By: #### C K, CBC, PTT, HS TROP, BMP, BNP, PT ####[address] [place] [id number] [facility] Potassium [Moles/Vol] 4.0 mmol/L Normal 3.5-5.1 [facility] Comment on above: Performed By: #### C K, CBC, PTT, HS TROP, BMP, BNP, PT ####[facility] [id number] Sodium [Moles/Vol] 138 mmol/L Normal 136-145 [facility] Comment on above: Performed By: #### C K, CBC, PTT, HS TROP, BMP, BNP, PT ####[facility] [id number] Urea nitrogen [Mass/Vol] 17 mg/dL Normal 7-25 [facility] Comment on above: Performed By: #### C K, CBC, PTT, HS TROP, BMP, BNP, PT ####[facility] Basophils Auto (Bld) [#/Vol] Ordered By: PROVIDER TEMP on 09-01-2023 Basophils (Bld) [#/Vol] 0.1 10*3/uL 0.0-0.2 [facility] Basophils/100 WBC Auto (Bld) Ordered By: PROVIDER TEMP on 09-01-2023 Basophils/100 WBC (Bld) 0.8 % . [facility] Calcium [Mass/volume] in Ser um or PlasmaOrdered By: Natalie Brian on 09-01-2023 Calcium [Mass/Vol] 9.1 mg/dL 8.6-10.3 [facility] Carbon dioxide, total [Moles /volume] in Serum or PlasmaOrdered By: Natalie Brian on 09-01-2023 CO2 [Moles/Vol] 24.0 mmol/L 21.0-31.0 [facility] Chloride [Moles/volume] in S marylou or PlasmaOrdered By: Natalie Brian on 09-01-2023 Chloride [Moles/Vol] 107 mmol/L 98-107 [facility] Complete Blood Count Auto Di ffon 09-01-2023 Basophils (Bld) [#/Vol] 0.1 10*3/uL Normal 0.0-0.2 [facility] Comment on above: Result Comment: PERF ORMED BY: [facility] [place] [address] PATHOLOGIST MOLD CARRIER ROWAN IRWIN M.D. Performed By: #### C K, CBC, PTT, HS TROP, BMP, BNP, PT ####[address] Basophils/100 WBC (Bld) 0.8 % Normal . [facility] Comment on above: Performed By: #### C K, CBC, PTT, HS TROP, BMP, BNP, PT ####[address] Eosinophils (Bld) [#/Vol] 0.0 10*3/uL Normal 0.0-0.45 [facility] Comment on above: Performed By: #### C K, CBC, PTT, HS TROP, BMP, BNP, PT ####[address] Eosinophils/100 WBC (Bld) 0.4 % Normal . [facility] Comment on above: Performed By: #### C K, CBC, PTT, HS TROP, BMP, BNP, PT ####[address] Erythrocyte distribution width (RBC) [Ratio] 18.0 % High 11.9-15.3 [facility] Comment on above: Performed By: #### C K, CBC, PTT, HS TROP, BMP, BNP, PT ####[address] Hematocrit (Bld) [Volume fraction] 32.5 % Low 34.0-46.4 [facility] Comment on above: Performed By: #### C K, CBC, PTT, HS TROP, BMP, BNP, PT ####[address] Hemoglobin (Bld) [Mass/Vol] 10.3 g/dL Low 11.8-15.4 [facility] Comment on above: Performed By: #### C K, CBC, PTT, HS TROP, BMP, BNP, PT ####[address] Lymphocytes (Bld) [#/Vol] 0.6 10*3/uL Low 1.00-4.8 [facility] Comment on above: Performed By: #### C K, CBC, PTT, HS TROP, BMP, BNP, PT ####[address] Lymphocytes/100 WBC (Bld) 6.4 % Normal . [facility] Comment on above: Performed By: #### C K, CBC, PTT, HS TROP, BMP, BNP, PT ####[address] MCH (RBC) [Entitic mass] 23.7 pg Low 24.7-34.3 [facility] Comment on above: Performed By: #### C K, CBC, PTT, HS TROP, BMP, BNP, PT ####[address] MCV (RBC) [Entitic vol] 74.6 fL Low 80-100 [facility] Comment on above: Performed By: #### C K, CBC, PTT, HS TROP, BMP, BNP, PT ####[address] Mean Corpuscular HGB Conc 31.8 g/dL Low 32.0-35.0 [facility] Comment on above: Performed By: #### C K, CBC, PTT, HS TROP, BMP, BNP, PT ####[address] Monocytes (Bld) [#/Vol] 0.6 10*3/uL Normal 0.0-0.8 [facility] Comment on above: Performed By: #### C K, CBC, PTT, HS TROP, BMP, BNP, PT ####[address] Monocytes/100 WBC (Bld) 17.29 % Normal 0.00-20.00 [facility] Comment on above: Performed By: #### C K, CBC, PTT, HS TROP, BMP, BNP, PT ####[address] Monocytes/100 WBC (Bld) 6.0 % Normal . [facility] Comment on above: Performed By: #### C K, CBC, PTT, HS TROP, BMP, BNP, PT ####[address] Neutrophils (Bld) [#/Vol] 8.1 10*3/uL High 1.8-7.7 [facility] Comment on above: Performed By: #### C K, CBC, PTT, HS TROP, BMP, BNP, PT ####[address] Neutrophils/100 WBC (Bld) 86.4 % Normal . [facility] Comment on above: Performed By: #### C K, CBC, PTT, HS TROP, BMP, BNP, PT ####[address] NRBC% 0.1 /100{WBC} Normal 0-0.5 [facility] Comment on above: Performed By: #### C K, CBC, PTT, HS TROP, BMP, BNP, PT ####[address] Platelet mean volume (Bld) [Entitic vol] 8.1 fL Normal 6.3-10.7 [facility] Comment on above: Performed By: #### C K, CBC, PTT, HS TROP, BMP, BNP, PT ####[address] Platelets (Bld) [#/Vol] 317 10*3/uL Normal 150-450 [facility] Comment on above: Performed By: #### C K, CBC, PTT, HS TROP, BMP, BNP, PT ####[address] RBC (Bld) [#/Vol] 4.36 10*6/uL Normal 3.60-5.00 [facility] Comment on above: Performed By: #### C K, CBC, PTT, HS TROP, BMP, BNP, PT ####[place] [id number] WBC (Bld) [#/Vol] 9.4 10*3/uL Normal 3.8-11.6 [facility] Comment on above: Performed By: #### C K, CBC, PTT, HS TROP, BMP, BNP, PT ####[place] [address] [place] [address] [facility] Creatine Kinaseon 09-01-2023 CK [Catalytic activity/Vol] 80 U/L Normal [facility] Comment on above: Performed By: #### C K, CBC, PTT, HS TROP, BMP, BNP, PT ####[place] [address] [place] [address] [facility] Creatine kinase [Enzymatic a ctivity/volume] in Serum or PlasmaOrdered By: Natalie Brian on 09-01-2023 CK [Catalytic activity/Vol] 80 U/L [facility] Creatinine [Mass/volume] in Serum or PlasmaOrdered By: Natalie Brian on 09-01-2023 Creatinine [Mass/Vol] 0.93 mg/dL 0.60-1.20 [facility] ECG 12 lead ECGon 09-01-2023 ECG 12 lead ECG [facility] [place] [address] Electrocardiograph Report Signed Patient: Jessy Dow MR#: [id number] 77 : 1940 Acct:[id number] Age/Sex: 83 / F ADM Date: 09/01/23 [...] now present Confirmed by NATALIE BRIAN DO ([id number]) on 09/01/2023 11:31:37 AM Referred By: Electronically Signed By:NATALIE BRIAN DO Transcribed By: MUS Signed By Natalie Brian DO 09/01 1131 Normal [facility] Eosinophils Auto (Bld) [#/Vo l]Ordered By: PROVIDER TEMP on 09-01-2023 Eosinophils (Bld) [#/Vol] 0.0 10*3/uL 0.0-0.45 [facility] Eosinophils/100 WBC Auto (Bl d)Ordered By: PROVIDER TEMP on 09-01-2023 Eosinophils/100 WBC (Bld) 0.4 % . [facility] Erythrocyte distribution wid th Auto (RBC) [Ratio]Ordered By: PROVIDER TEMP on 09-01-2023 Erythrocyte distribution width (RBC) [Ratio] 18.0 % 11.9-15.3 [facility] Glucose [Mass/volume] in Ser um or PlasmaOrdered By: Natalie Brian on 09-01-2023 Glucose [Mass/Vol] 146 mg/dL 70-100 [facility] Comment on above: ADA recommended refe rence rangeRandom Glucose Reference Range is dependent on time and content of last meal. Glucose of more than 200 mg/dL in a nonstressed, ambulatory subject supports the diagnosis of Diabetes Mellitus. Hematocrit Auto (Bld) [Volum e fraction]Ordered By: PROVIDER TEMP on 09-01-2023 Hematocrit (Bld) [Volume fraction] 32.5 % 34.0-46.4 [facility] Hemoglobin [Mass/volume] in BloodOrdered By: PROVIDER TEMP on 09-01-2023 Hemoglobin (Bld) [Mass/Vol] 10.3 g/dL 11.8-15.4 [facility] INR in Platelet poor plasma by Coagulation assayOrdered By: Natalie Brian on 09-01-2023 INR Coag (PPP) [Relative time] 1.6 {INR} [facility] Comment on above: INR Therapeutic [...] RBC Auto (Bld) [#/Vol] 9.4 10*3/uL 3.8-11.6 [facility] Lymphocytes Auto (Bld) [#/Vo l]Ordered By: PROVIDER TEMP on 09-01-2023 Lymphocytes (Bld) [#/Vol] 0.6 10*3/uL 1.00-4.8 [facility] Lymphocytes/100 WBC Auto (Bl d)Ordered By: PROVIDER TEMP on 09-01-2023 Lymphocytes/100 WBC (Bld) 6.4 % . [facility] MCH Auto (RBC) [Entitic mass ]Ordered By: PROVIDER TEMP on 09-01-2023 MCH (RBC) [Entitic mass] 23.7 pg 24.7-34.3 [facility] MCHC Auto (RBC) [Mass/Vol]Or dered By: PROVIDER TEMP on 09-01-2023 MCHC (RBC) [Mass/Vol] 31.8 g/dL 32.0-35.0 [facility] MCV Auto (RBC) [Entitic vol] Ordered By: PROVIDER TEMP on 09-01-2023 MCV (RBC) [Entitic vol] 74.6 fL 80-100 [facility] Monocyte distribution width [Entitic volume] in Blood by AutomatedOrdered By: PROVIDER TEMP on 09-01-2023 Monocyte distribution width Auto (Bld) [Entitic vol] 17.29 % 0.00-20.00 [facility] Monocytes Auto (Bld) [#/Vol] Ordered By: PROVIDER TEMP on 09-01-2023 Monocytes (Bld) [#/Vol] 0.6 10*3/uL 0.0-0.8 [facility] Monocytes/100 WBC Auto (Bld) Ordered By: PROVIDER TEMP on 09-01-2023 Monocytes/100 WBC (Bld) 6.0 % . [facility] Natriuretic peptide B [Mass/ Vol]Ordered By: Natalie Brian on 09-01-2023 Natriuretic peptide B (Bld) [Mass/Vol] 126.0 pg/mL 5-100 [facility] Neutrophils Auto (Bld) [#/Vo l]Ordered By: PROVIDER TEMP on 09-01-2023 Neutrophils (Bld) [#/Vol] 8.1 10*3/uL 1.8-7.7 [facility] Neutrophils/100 WBC Auto (Bl d)Ordered By: PROVIDER TEMP on 09-01-2023 Neutrophils/100 WBC (Bld) 86.4 % . [facility] No Panel InformationOrdered By: Natalie Brian on 09-01-2023 Estimated GFR (CKD-EPI) > 60.0 mL/Min [facility] Creatinine Clearance (Chem 50.24 [facility] Nucleated erythrocytes [Pres ence] in Blood by Automated countOrdered By: PROVIDER TEMP on 09-01-2023 Nucleated RBC Auto Ql (Bld) 0.1 /100{WBC} 0-0.5 [facility] Partial Thromboplastin Timeo n 09-01-2023 aPTT Coag (Bld) [Time] 38.3 s High 25.1-36.5 [facility] Comment on above: Result Comment: A he matocrit value greater than 55% may lead to inaccurate results in coagulation testing. Patients having hematocrit values >55% require a special collection tube for coagulation studies. Please contact the laboratory at [phone] for redraw instructions. PERFORMED BY: [facility] [address] [place] [address] PATHOLOGIST MOLD CARRIER ROWAN IRWIN M.D. Performed By: #### C K, CBC, PTT, HS TROP, BMP, BNP, PT ####[facility] [address] [place] [address] [facility] Platelet mean volume Auto (B ld) [Entitic vol]Ordered By: PROVIDER TEMP on 09-01-2023 Platelet mean volume (Bld) [Entitic vol] 8.1 fL 6.3-10.7 [facility] Platelets Auto (Bld) [#/Vol] Ordered By: AMANDA TEMP on 09-01-2023 Platelets (Bld) [#/Vol] 317 10*3/uL 150-450 [facility] Potassium [Moles/volume] in Serum or PlasmaOrdered By: Natalie Brian on 09-01-2023 Potassium [Moles/Vol] 4.0 mmol/L 3.5-5.1 [facility] Prothrombin Time INRon 09-01 INR Coag (PPP) [Relative time] 1.6 {INR} Normal [facility] Comment on above: Result Comment: [...] CBC, PTT, HS TROP, BMP, BNP, PT ####[facility] [address] [place] [id number] [facility] PT Coag (PPP) [Time] 18.4 s High 9.0-12.9 [facility] Comment on above: Result Comment: A he matocrit value greater than 55% may lead to inaccurate results in coagulation testing. Patients having hematocrit values >55% require a special collection tube for coagulation studies. Please contact the laboratory at [phone] for redraw instructions. Performed By: #### C K, CBC, PTT, HS TROP, BMP, BNP, PT ####[facility] [address] [place] [address] [facility] Prothrombin time (PT)Ordered By: Natalie Brian on 09-01-2023 PT Coag (PPP) [Time] 18.4 s 9.0-12.9 [facility] Comment on above: A hematocrit value g reater than 55% may lead to inaccurate results in coagulation testing. Patients having hematocrit values >55% require a special collection tube for coagulation studies. Please contact the laboratory at [phone] for redraw instructions. RBC Auto (Bld) [#/Vol]Ordere d By: PROVIDER TEMP on 09-01-2023 RBC (Bld) [#/Vol] 4.36 10*6/uL 3.60-5.00 [facility] Serum or plasma anion gap de terminationOrdered By: Natalie Brian on 09-01-2023 Anion gap [Moles/Vol] 11.0 mmol/L 6.0-15.0 [facility] Sodium [Moles/volume] in Ser um or PlasmaOrdered By: Natalie Brian on 09-01-2023 Sodium [Moles/Vol] 138 mmol/L 136-145 [facility] Troponin I High Sensitivityo n 09-01-2023 Troponin I High Sensitivity 5.2 pg/mL Normal 0.0-15.0 [facility] Comment on above: Result Comment: PERF ORMED BY: [facility] [address] [place] [address] PATHOLOGIST MOLD CARRIER ROWAN IRWIN M.D. Performed By: #### C K, CBC, PTT, HS TROP, BMP, BNP, PT ####[facility] [address] [place] [address] [facility] Troponin I.cardiac [Mass/vol ume] in Serum or Plasma by Detection limit <= 0.01 ng/Ordered By: Natalie Brian on 09-01-2023 Troponin I.cardiac DL <= 0.01 ng/mL [Mass/Vol] 5.2 pg/mL 0.0-15.0 [facility] Urea nitrogen [Mass/volume] in Serum or PlasmaOrdered By: Natalie Brian on 09-01-2023 Urea nitrogen [Mass/Vol] 17 mg/dL 7-25 [facility] WBC Auto (Bld) [#/Vol]Ordere d By: PROVIDER TEMP on 09-01-2023 WBC (Bld) [#/Vol] 9.4 10*3/uL 3.8-11.6 [facility] XR chest 2V*on 09-01-2023 XR chest 2V* [facility] [address] [place] [address] [place] [address] XRay Report Signed Patient: Jessy Dow MR#: [id number] 77 : 1940 Acct:[id number] Age/Sex: 83 / F ADM Date: 09/01/23 Loc: ER Room: Type: [facility] Attending Dr: Copies to: Natalie Brian DO [...] Devin Diallo M.D.09/01/2023 10:19 AM Dictation Location: [place] [address] Transcribed By: [facility] 09/01/23 1019 Dictated By: Devin Diallo II, MD 09/01/23 1002 Signed By: 09/01/23 1019 Normal [facility] Activated partial thrombopla stin time (aPTT) in platelet poor plasma by coagulation aOrdered By: Natalie Brian on 07-27-2023 aPTT Coag (PPP) [Time] 35.2 s 25.1-36.5 [facility] Comment on above: A hematocrit value g reater than 55% may lead to inaccurate results in coagulation testing. Patients having hematocrit values >55% require a special collection tube for coagulation studies. Please contact the laboratory at [phone] for redraw instructions. Alanine aminotransferase [En zymatic activity/volume] in Serum or PlasmaOrdered By: Natalie Brian on 07-27-2023 ALT [Catalytic activity/Vol] 11 U/L 7-52 [facility] Albumin [Mass/volume] in Ser um or Plasma by Bromocresol green (BCG) dye binding methoOrdered By: Natalie Brian on 07-27-2023 Albumin BCG dye [Mass/Vol] 3.7 g/dL 3.5-5.7 [facility] Alkaline phosphatase [Enzyma tic activity/volume] in Serum or PlasmaOrdered By: Natalie Brian on 07-27-2023 ALP [Catalytic activity/Vol] 94 U/L 34-104 [facility] Aspartate aminotransferase [ Enzymatic activity/volume] in Serum or PlasmaOrdered By: Natalie Brian on 07-27-2023 AST [Catalytic activity/Vol] 15 U/L 13-39 [facility] B-Type Natriuretic Peptideon 07-27-2023 Natriuretic peptide B (Bld) [Mass/Vol] 92.0 pg/mL Normal 5-100 [facility] Comment on above: Result Comment: PERF ORMED BY: [place] [address] PATHOLOGIST MOLD CARRIER ROWAN IRWIN M.D. Performed By: #### C MP, PT, CK, BNP, CBC, HS TROP, PTT, LIPASE ####[facility] [address] [place] [address] [place] Basophils Auto (Bld) [#/Vol] Ordered By: Natalie Brian on 07-27-2023 Basophils (Bld) [#/Vol] 0.1 10*3/uL 0.0-0.2 [facility] Basophils/100 WBC Auto (Bld) Ordered By: Natalie Brian on 07-27-2023 Basophils/100 WBC (Bld) 0.8 % . [facility] Bilirubin Test strip Ql (U)O rdered By: Natalie Brian on 07-27-2023 Bilirubin Ql (U) Negative Negative [facility] Bilirubin.total [Mass/volume ] in Serum or PlasmaOrdered By: Natalie Brian on 07-27-2023 Bilirubin [Mass/Vol] 0.4 mg/dL 0.3-1.0 [facility] CT abdomen pelvis wo conon 1 CT abdomen pelvis wo con [facility] [address] [place] [address] [place] [address] CT Scan Report Signed Patient: Jessy Dow MR#: [id number] 77 : 1940 Acct:[id number] Age/Sex: 83 / F ADM Date: 07/27/23 Loc: ER Room: Type: [facility] ER Attending Dr: Copies to: Natalie Brian [...] Devin Diallo M.D.07/27/2023 1:12 PM Dictation Location: [facility]--13 Transcribed By: [facility] 07/27/23 1312 Dictated By: Devin Diallo II, MD 07/27/23 1302 Signed By: 07/27/23 1312 [facility] Calcium [Mass/volume] in Ser um or PlasmaOrdered By: Natalie Brian on 07-27-2023 Calcium [Mass/Vol] 8.9 mg/dL 8.6-10.3 [facility] Carbon dioxide, total [Moles /volume] in Serum or PlasmaOrdered By: Natalie Brian on 07-27-2023 CO2 [Moles/Vol] 23.7 mmol/L 21.0-31.0 [facility] Chloride [Moles/volume] in S marylou or PlasmaOrdered By: Natalie Brian on 07-27-2023 Chloride [Moles/Vol] 106 mmol/L 98-107 [facility] Color Auto (U)Ordered By: Honorio Brian on 07-27-2023 Color (U) Yellow Yellow [facility] Complete Blood Count Auto Di ffon 07-27-2023 Basophils (Bld) [#/Vol] 0.1 10*3/uL Normal 0.0-0.2 [facility] Comment on above: Result Comment: PERF ORMED BY: [facility] [address] [place] [address] PATHOLOGIST MOLD CARRIER ROWAN IRWIN M.D. Performed By: #### C MP, PT, CK, BNP, CBC, HS TROP, PTT, LIPASE ####[address] Basophils/100 WBC (Bld) 0.8 % Normal . [facility] Comment on above: Performed By: #### C MP, PT, CK, BNP, CBC, HS TROP, PTT, LIPASE ####[address] Eosinophils (Bld) [#/Vol] 0.0 10*3/uL Normal 0.0-0.45 [facility] Comment on above: Performed By: #### C MP, PT, CK, BNP, CBC, HS TROP, PTT, LIPASE ####[address] Eosinophils/100 WBC (Bld) 0.5 % Normal . [facility] Comment on above: Performed By: #### C MP, PT, CK, BNP, CBC, HS TROP, PTT, LIPASE ####[address] Erythrocyte distribution width (RBC) [Ratio] 18.4 % High 11.9-15.3 [facility] Comment on above: Performed By: #### C MP, PT, CK, BNP, CBC, HS TROP, PTT, LIPASE ####[address] Hematocrit (Bld) [Volume fraction] 33.1 % Low 34.0-46.4 [facility] Comment on above: Performed By: #### C MP, PT, CK, BNP, CBC, HS TROP, PTT, LIPASE ####[address] Hemoglobin (Bld) [Mass/Vol] 10.6 g/dL Low 11.8-15.4 [facility] Comment on above: Performed By: #### C MP, PT, CK, BNP, CBC, HS TROP, PTT, LIPASE ####[address] Lymphocytes (Bld) [#/Vol] 0.6 10*3/uL Low 1.00-4.8 [facility] Comment on above: Performed By: #### C MP, PT, CK, BNP, CBC, HS TROP, PTT, LIPASE ####[address] Lymphocytes/100 WBC (Bld) 7.8 % Normal . [facility] Comment on above: Performed By: #### C MP, PT, CK, BNP, CBC, HS TROP, PTT, LIPASE ####[address] MCH (RBC) [Entitic mass] 23.5 pg Low 24.7-34.3 [facility] Comment on above: Performed By: #### C MP, PT, CK, BNP, CBC, HS TROP, PTT, LIPASE ####[address] MCV (RBC) [Entitic vol] 73.6 fL Low 80-100 [facility] Comment on above: Performed By: #### C MP, PT, CK, BNP, CBC, HS TROP, PTT, LIPASE ####[address] Mean Corpuscular HGB Conc 31.9 g/dL Low 32.0-35.0 [facility] Comment on above: Performed By: #### C MP, PT, CK, BNP, CBC, HS TROP, PTT, LIPASE ####[address] Monocytes (Bld) [#/Vol] 0.6 10*3/uL Normal 0.0-0.8 [facility] Comment on above: Performed By: #### C MP, PT, CK, BNP, CBC, HS TROP, PTT, LIPASE ####[address] Monocytes/100 WBC (Bld) 18.84 % Normal 0.00-20.00 [facility] Comment on above: Performed By: #### C MP, PT, CK, BNP, CBC, HS TROP, PTT, LIPASE ####[address] Monocytes/100 WBC (Bld) 7.4 % Normal . [facility] Comment on above: Performed By: #### C MP, PT, CK, BNP, CBC, HS TROP, PTT, LIPASE ####[address] Neutrophils (Bld) [#/Vol] 6.5 10*3/uL Normal 1.8-7.7 [facility] Comment on above: Performed By: #### C MP, PT, CK, BNP, CBC, HS TROP, PTT, LIPASE ####[address] Neutrophils/100 WBC (Bld) 83.5 % Normal . [facility] Comment on above: Performed By: #### C MP, PT, CK, BNP, CBC, HS TROP, PTT, LIPASE ####[address] NRBC% 0.1 /100{WBC} Normal 0-0.5 [facility] Comment on above: Performed By: #### C MP, PT, CK, BNP, CBC, HS TROP, PTT, LIPASE ####[address] Platelet mean volume (Bld) [Entitic vol] 8.1 fL Normal 6.3-10.7 [facility] Comment on above: Performed By: #### C MP, PT, CK, BNP, CBC, HS TROP, PTT, LIPASE ####[address] Platelets (Bld) [#/Vol] 328 10*3/uL Normal 150-450 [facility] Comment on above: Performed By: #### C MP, PT, CK, BNP, CBC, HS TROP, PTT, LIPASE ####[address] RBC (Bld) [#/Vol] 4.49 10*6/uL Normal 3.60-5.00 [facility] Comment on above: Performed By: #### C MP, PT, CK, BNP, CBC, HS TROP, PTT, LIPASE ####[address] WBC (Bld) [#/Vol] 7.8 10*3/uL Normal 3.8-11.6 [facility] Comment on above: Performed By: #### C MP, PT, CK, BNP, CBC, HS TROP, PTT, LIPASE ####[address] Comprehensive Metabolic Pane barbara 07-27-2023 Albumin [Mass/Vol] 3.7 g/dL Normal 3.5-5.7 [facility] Comment on above: Performed By: #### C MP, PT, CK, BNP, CBC, HS TROP, PTT, LIPASE ####[address] Albumin/Globulin [Mass ratio] 1.1 {ratio} Normal [facility] Comment on above: Performed By: #### C MP, PT, CK, BNP, CBC, HS TROP, PTT, LIPASE ####[address] ALP [Catalytic activity/Vol] 94 U/L Normal 34-104 [facility] Comment on above: Performed By: #### C MP, PT, CK, BNP, CBC, HS TROP, PTT, LIPASE ####[address] ALT [Catalytic activity/Vol] 11 U/L Normal 7-52 [facility] Comment on above: Performed By: #### C MP, PT, CK, BNP, CBC, HS TROP, PTT, LIPASE ####[address] Anion gap [Moles/Vol] 12.2 mmol/L Normal 6.0-15.0 [facility] Comment on above: Performed By: #### C MP, PT, CK, BNP, CBC, HS TROP, PTT, LIPASE ####[address] AST [Catalytic activity/Vol] 15 U/L Normal 13-39 [facility] Comment on above: Performed By: #### C MP, PT, CK, BNP, CBC, HS TROP, PTT, LIPASE ####[address] Bilirubin [Mass/Vol] 0.4 mg/dL Normal 0.3-1.0 [facility] Comment on above: Performed By: #### C MP, PT, CK, BNP, CBC, HS TROP, PTT, LIPASE ####[place] [id number] [facility] Calcium [Mass/Vol] 8.9 mg/dL Normal 8.6-10.3 [facility] Comment on above: Performed By: #### C MP, PT, CK, BNP, CBC, HS TROP, PTT, LIPASE ####[address] Chloride [Moles/Vol] 106 mmol/L Normal 98-107 [facility] Comment on above: Performed By: #### C MP, PT, CK, BNP, CBC, HS TROP, PTT, LIPASE ####[address] CO2 [Moles/Vol] 23.7 mmol/L Normal 21.0-31.0 [facility] Comment on above: Performed By: #### C MP, PT, CK, BNP, CBC, HS TROP, PTT, LIPASE ####[address] Creatinine [Mass/Vol] 0.91 mg/dL Normal 0.60-1.20 [facility] Comment on above: Performed By: #### C MP, PT, CK, BNP, CBC, HS TROP, PTT, LIPASE ####[address] Creatinine Clr Calc Pharmacy 52.10 [facility] Comment on above: Performed By: #### C MP, PT, CK, BNP, CBC, HS TROP, PTT, LIPASE ####[address] GFR/1.73 sq M.predicted MDRD (S/P/Bld) [Vol rate/Area] mL/min/{1.73_m2} [facility] Comment on above: Performed By: #### C MP, PT, CK, BNP, CBC, HS TROP, PTT, LIPASE ####[address] Globulin (S) [Mass/Vol] 3.4 g/dL [facility] Comment on above: Performed By: #### C MP, PT, CK, BNP, CBC, HS TROP, PTT, LIPASE ####[address] Glucose [Mass/Vol] 119 mg/dL High 70-100 [facility] Comment on above: Result Comment: [place] Glucose Reference Range is dependent on time and content of last meal. Glucose of more than 200 mg/dL in a nonstressed, ambulatory subject supports the diagnosis of Diabetes Mellitus. ADA recommended reference range Performed By: #### C MP, PT, CK, BNP, CBC, HS TROP, PTT, LIPASE ####[address] Potassium [Moles/Vol] 3.9 mmol/L Normal 3.5-5.1 [facility] Comment on above: Performed By: #### C MP, PT, CK, BNP, CBC, HS TROP, PTT, LIPASE ####[address] Protein [Mass/Vol] 7.1 g/dL Normal 6.4-8.9 [facility] Comment on above: Performed By: #### C MP, PT, CK, BNP, CBC, HS TROP, PTT, LIPASE ####[address] Sodium [Moles/Vol] 138 mmol/L Normal 136-145 [facility] Comment on above: Performed By: #### C MP, PT, CK, BNP, CBC, HS TROP, PTT, LIPASE ####[address] Urea nitrogen [Mass/Vol] 14 mg/dL Normal 7-25 [facility] Comment on above: Performed By: #### C MP, PT, CK, BNP, CBC, HS TROP, PTT, LIPASE ####[address] Creatine Kinaseon 07-27-2023 CK [Catalytic activity/Vol] 45 U/L Normal [facility] [facility] Comment on above: Performed By: #### C MP, PT, CK, BNP, CBC, HS TROP, PTT, LIPASE ####[address] Creatine kinase [Enzymatic a ctivity/volume] in Serum or PlasmaOrdered By: Natalie Brian on 07-27-2023 CK [Catalytic activity/Vol] 45 U/L - [facility] Creatinine [Mass/volume] in Serum or PlasmaOrdered By: Natalie Brian on 07-27-2023 Creatinine [Mass/Vol] 0.91 mg/dL 0.60-1.20 [facility] ECG 12 lead ECGon 07-27-2023 ECG 12 lead ECG [facility] Main [address] [address] Electrocardiograph Report Signed Patient: Jessy Dow MR#: [id number] 77 : 1940 Acct:[id number] Age/Sex: 83 / F ADM Date: 07/27/23 [...] Anterior leads Confirmed by NATALIE BRIAN DO ([id number]) on 07/27/2023 5:25:35 PM Referred By: Electronically Signed By:NATALIE BRIAN DO Transcribed By: MUS Signed By Natalie Brian DO 07/27 1726 Normal [facility] Eosinophils Auto (Bld) [#/Vo l]Ordered By: Natalie Brian on 07-27-2023 Eosinophils (Bld) [#/Vol] 0.0 10*3/uL 0.0-0.45 [facility] Eosinophils/100 WBC Auto (Bl d)Ordered By: Natalie Brian on 07-27-2023 Eosinophils/100 WBC (Bld) 0.5 % . [facility] Erythrocyte distribution wid th Auto (RBC) [Ratio]Ordered By: Natalie Brian on 07-27-2023 Erythrocyte distribution width (RBC) [Ratio] 18.4 % 11.9-15.3 [facility] Globulin Calc (S) [Mass/Vol] Ordered By: Natalie Brian on 07-27-2023 Globulin (S) [Mass/Vol] 3.4 g/dL [facility] Glucose [Mass/volume] in Ser um or PlasmaOrdered By: Natalie Brian on 07-27-2023 Glucose [Mass/Vol] 119 mg/dL 70-100 [facility] Comment on above: ADA recommended refe rence rangeRandom Glucose Reference Range is dependent on time and content of last meal. Glucose of more than 200 mg/dL in a nonstressed, ambulatory subject supports the diagnosis of Diabetes Mellitus. Hematocrit Auto (Bld) [Volum e fraction]Ordered By: Natalie Brian on 07-27-2023 Hematocrit (Bld) [Volume fraction] 33.1 % 34.0-46.4 [facility] Hemoglobin [Mass/volume] in BloodOrdered By: Natalie Brian on 07-27-2023 Hemoglobin (Bld) [Mass/Vol] 10.6 g/dL 11.8-15.4 [facility] INR in Platelet poor plasma by Coagulation assayOrdered By: Natalie Brian on 07-27-2023 INR Coag (PPP) [Relative time] 1.3 {INR} [facility] Comment on above: INR Therapeutic [...] on 07-27-2023 Ketones (U) [Mass/Vol] Negative Negative [facility] Leukocytes [#/volume] correc qi for nucleated erythrocytes in Blood by Automated counOrdered By: Natalie Brian on 07-27-2023 WBC corrected for nucl RBC Auto (Bld) [#/Vol] 7.8 10*3/uL 3.8-11.6 [facility] Lipaseon 07-27-2023 Lipase [Catalytic activity/Vol] 15.0 U/L Normal 11.0-82.0 [facility] Comment on above: Result Comment: PERF ORMED BY: [facility] [address] [place] [address] PATHOLOGIST [employer] ROWAN IRWIN M.D. Performed By: #### C MP, PT, CK, BNP, CBC, HS TROP, PTT, LIPASE ####[facility] [id number] [place] [address] [facility] Lipase [Enzymatic activity/v olume] in Serum or PlasmaOrdered By: Natalie Brian on 07-27-2023 Lipase [Catalytic activity/Vol] 15.0 U/L 11.0-82.0 [facility] Lymphocytes Auto (Bld) [#/Vo l]Ordered By: Natalie Brian on 07-27-2023 Lymphocytes (Bld) [#/Vol] 0.6 10*3/uL 1.00-4.8 [facility] Lymphocytes/100 WBC Auto (Bl d)Ordered By: Natalie Brian on 07-27-2023 Lymphocytes/100 WBC (Bld) 7.8 % . [facility] MCH Auto (RBC) [Entitic mass ]Ordered By: Natalie Brian on 07-27-2023 MCH (RBC) [Entitic mass] 23.5 pg 24.7-34.3 [facility] MCHC Auto (RBC) [Mass/Vol]Or dered By: Natalie Brian on 07-27-2023 MCHC (RBC) [Mass/Vol] 31.9 g/dL 32.0-35.0 [facility] MCV Auto (RBC) [Entitic vol] Ordered By: Natalie Brian on 07-27-2023 MCV (RBC) [Entitic vol] 73.6 fL 80-100 [facility] Monocyte distribution width [Entitic volume] in Blood by AutomatedOrdered By: Natalie Brian on 07-27-2023 Monocyte distribution width Auto (Bld) [Entitic vol] 18.84 % 0.00-20.00 [facility] Monocytes Auto (Bld) [#/Vol] Ordered By: Natalie Brian on 07-27-2023 Monocytes (Bld) [#/Vol] 0.6 10*3/uL 0.0-0.8 [facility] Monocytes/100 WBC Auto (Bld) Ordered By: Natalie Brian on 07-27-2023 Monocytes/100 WBC (Bld) 7.4 % . [facility] Natriuretic peptide B [Mass/ Vol]Ordered By: Natalie Brian on 07-27-2023 Natriuretic peptide B (Bld) [Mass/Vol] 92.0 pg/mL 5-100 [facility] Neutrophils Auto (Bld) [#/Vo l]Ordered By: Natalie Brian on 07-27-2023 Neutrophils (Bld) [#/Vol] 6.5 10*3/uL 1.8-7.7 [facility] Neutrophils/100 WBC Auto (Bl d)Ordered By: Natalie Brian on 07-27-2023 Neutrophils/100 WBC (Bld) 83.5 % . [facility] Nitrite Test strip Ql (U)Ord ered By: Natalie Brian on 07-27-2023 Nitrite Ql (U) Negative Negative [facility] No Panel InformationOrdered By: Natalie Brian on 07-27-2023 Estimated GFR (CKD-EPI) > 60.0 mL/Min [facility] Creatinine Clearance (Chem 52.10 [facility] Nucleated erythrocytes [Pres ence] in Blood by Automated countOrdered By: Natalie Brian on 07-27-2023 Nucleated RBC Auto Ql (Bld) 0.1 /100{WBC} 0-0.5 [facility] Partial Thromboplastin Timeo n 07-27-2023 aPTT Coag (Bld) [Time] 35.2 s Normal 25.1-36.5 [facility] Comment on above: Result Comment: A he matocrit value greater than 55% may lead to inaccurate results in coagulation testing. Patients having hematocrit values >55% require a special collection tube for coagulation studies. Please contact the laboratory at [phone] for redraw instructions. PERFORMED BY: [facility] [address] [place] [address] PATHOLOGIST [employer] ROWAN IRWIN M.D. Performed By: #### C MP, PT, CK, BNP, CBC, HS TROP, PTT, LIPASE ####[facility] [id number] [place] [address] [facility] Platelet mean volume Auto (B ld) [Entitic vol]Ordered By: Natalie Brian on 07-27-2023 Platelet mean volume (Bld) [Entitic vol] 8.1 fL 6.3-10.7 [facility] Platelets Auto (Bld) [#/Vol] Ordered By: Natalienely Brian on 07-27-2023 Platelets (Bld) [#/Vol] 328 10*3/uL 150-450 [facility] Potassium [Moles/volume] in Serum or PlasmaOrdered By: Natalie Brian on 07-27-2023 Potassium [Moles/Vol] 3.9 mmol/L 3.5-5.1 [facility] Protein Auto test strip (U) [Mass/Vol]Ordered By: Natalie Brian on 07-27-2023 Protein (U) [Mass/Vol] Negative Negative [facility] Protein [Mass/volume] in Ser um or PlasmaOrdered By: Natalie Brian on 07-27-2023 Protein [Mass/Vol] 7.1 g/dL 6.4-8.9 [facility] Prothrombin Time INRon 07-27 INR Coag (PPP) [Relative time] 1.3 {INR} Normal [facility] Comment on above: Result Comment: [...] CK, BNP, CBC, HS TROP, PTT, LIPASE ####[facility] [id number] [place] [address] [facility] PT Coag (PPP) [Time] 15.6 s High 9.0-12.9 [facility] Comment on above: Result Comment: A he matocrit value greater than 55% may lead to inaccurate results in coagulation testing. Patients having hematocrit values >55% require a special collection tube for coagulation studies. Please contact the laboratory at [phone] for redraw instructions. Performed By: #### C MP, PT, CK, BNP, CBC, HS TROP, PTT, LIPASE ####[facility] [id number] Prothrombin time (PT)Ordered By: Natalie Brian on 07-27-2023 PT Coag (PPP) [Time] 15.6 s 9.0-12.9 [facility] Comment on above: A hematocrit value g reater than 55% may lead to inaccurate results in coagulation testing. Patients having hematocrit values >55% require a special collection tube for coagulation studies. Please contact the laboratory at [phone] for redraw instructions. RBC Auto (Bld) [#/Vol]Ordere d By: Natalie Brian on 07-27-2023 RBC (Bld) [#/Vol] 4.49 10*6/uL 3.60-5.00 [facility] Serum or plasma albumin/glob ulin mass ratioOrdered By: Natalie Brian on 07-27-2023 Albumin/Globulin [Mass ratio] 1.1 {ratio} [facility] Serum or plasma anion gap de terminationOrdered By: Natalie Brian on 07-27-2023 Anion gap [Moles/Vol] 12.2 mmol/L 6.0-15.0 [facility] Sodium [Moles/volume] in Ser um or PlasmaOrdered By: Natalie Brian on 07-27-2023 Sodium [Moles/Vol] 138 mmol/L 136-145 [facility] Specific gravity Auto test s trip (U) [Rel density]Ordered By: Natalie Brian on 07-27-2023 Specific gravity (U) [Rel density] 1.005 1.001-1.03 0 [facility] Troponin I High Sensitivityo n 07-27-2023 Troponin I High Sensitivity 4.3 pg/mL Normal 0.0-15.0 [facility] Comment on above: Order Comment: Comme nt repeat Result Comment: PERF ORMED BY: [facility] [address] [place] [address] PATHOLOGIST [employer] ROWAN IRWIN M.D. Performed By: #### H S TROP #### [facility] [address] [place] [id number] [facility] Troponin I High Sensitivity 3.1 pg/mL Normal 0.0-15.0 [facility] Comment on above: Result Comment: PERF ORMED BY: [facility] [address] [place] [address] PATHOLOGIST [employer] ROWAN IRWIN M.D. Performed By: #### C MP, PT, CK, BNP, CBC, HS TROP, PTT, LIPASE ####[facility] [id number] Troponin I.cardiac [Mass/vol ume] in Serum or Plasma by Detection limit <= 0.01 ng/Ordered By: Natalie Brian on 07-27-2023 Troponin I.cardiac DL <= 0.01 ng/mL [Mass/Vol] 4.3 pg/mL 0.0-15.0 [facility] Urea nitrogen [Mass/volume] in Serum or PlasmaOrdered By: Natalie Brian on 07-27-2023 Urea nitrogen [Mass/Vol] 14 mg/dL 04-21 [facility] Urinalysison 07-27-2023 Appearance (U) Clear Normal Clear [facility] Comment on above: Order Comment: Name Collection Type:: Clean-Voided Midstream Performed By: #### U A #### [facility] [address] [place] [address] [place] Bilirubin,Urine Negative Normal Negative [facility] Comment on above: Order Comment: Name Collection Type:: Clean-Voided Midstream Performed By: #### U A #### [facility] [address] [place] [address] [place] Color (U) Yellow Normal Yellow [facility] Comment on above: Order Comment: Name Collection Type:: Clean-Voided Midstream Performed By: #### U A #### [facility] [address] [place] [address] [place] Glucose Ql (U) Normal Normal Normal [facility] Comment on above: Order Comment: Name Collection Type:: Clean-Voided Midstream Performed By: #### U A #### [facility] [address] [place] [address] [place] Ketones Ql (U) Negative Normal Negative [facility] Comment on above: Order Comment: Name Collection Type:: Clean-Voided Midstream Performed By: #### U A #### [facility] [address] [place] [address] Leukocyte esterase Test strip Ql (U) Negative Normal Negative [facility] Comment on above: Order Comment: Name Collection Type:: Clean-Voided Midstream Performed By: #### U A #### [facility] [address] [place] [address] [place] Nitrite,Urine Negative Normal Negative [facility] Comment on above: Order Comment: Name Collection Type:: Clean-Voided Midstream Performed By: #### U A #### [address] Occult Blood,Urine Negative Normal Negative [facility] Comment on above: Order Comment: Name Collection Type:: Clean-Voided Midstream Result Comment: PERF ORMED BY: [place] [address] PATHOLOGIST [employer]OWAN IRWIN M.D. Performed By: #### U A #### [facility] [address] [place] [address] pH (U) 6.5 [pH] Normal 5.0-9.0 [facility] Comment on above: Order Comment: Name Collection Type:: Clean-Voided Midstream Performed By: #### U A #### [address] Protein,Urine Negative Normal Negative [facility] Comment on above: Order Comment: Name Collection Type:: Clean-Voided Midstream Performed By: #### U A #### [facility] [address] [place] [address] Specificy Aneta,Urine 1.005 Normal 1.001-1.03 0 [facility] Comment on above: Order Comment: Name Collection Type:: Clean-Voided Midstream Performed By: #### U A #### [address] Urobilinogen,Urine Normal Normal Normal [facility] Comment on above: Order Comment: Name Collection Type:: Clean-Voided Midstream Performed By: #### U A #### [facility] [address] Urine clarity by refractomet ry automatedOrdered By: Natalie Brian on 07-27-2023 Clarity Refractometry automated (U) Clear Clear [facility] Urine glucose measurement by automated test strip (mass/volume)Ordered By: Natalie Brian on 07-27-2023 Glucose Auto test strip (U) [Mass/Vol] Normal mg/dL Normal [facility] Urine hemoglobin detection b y automated test stripOrdered By: Natalie Brian on 07-27-2023 Hemoglobin Auto test strip Ql (U) Negative Negative [facility] Urine leukocyte esterase det ection by automated test stripOrdered By: Natalie Brian on 07-27-2023 Leukocyte esterase Auto test strip Ql (U) Negative Negative [facility] Urobilinogen Auto test strip (U) [Mass/Vol]Ordered By: Natalie Brian on 07-27-2023 Urobilinogen (U) [Mass/Vol] Normal mg/dL Normal [facility] WBC Auto (Bld) [#/Vol]Ordere d By: Natalie Brian on 07-27-2023 WBC (Bld) [#/Vol] 7.8 10*3/uL 3.8-11.6 [facility] XR chest 2V*on 07-27-2023 XR chest 2V* [facility] [place] [address] XRay Report Signed Patient: Jessy Dow MR#: [id number] 77 : 1940 Acct:[id number] Age/Sex: 83 / F ADM Date: 07/27/23 Loc: ER Room: Type: [facility] ER Attending Dr: Copies to: Natalie Brian [...] Devin Diallo M.D.07/27/2023 1:17 PM Dictation Location: [facility]--13 Transcribed By: STEPHON 07/27/231316 Dictated By: Devin Diallo II, MD 07/27/231314 Signed By: 07/27/231316 Normal [facility] pH Auto test strip (U)Ordere d By: Natalie Brian on 07-27-2023 pH (U) 6.5 [pH] 5.0-9.0 [facility] Office Visit (Cardiology)on 04-16-2023 Follow-up [...] Weight Tips; Status:Complete - Retrospective Authorization; Done: [id number] Some eating tips that can help you lose weight.; Status:Complete - Retrospective Authorization; Done: [id number] Paroxysmal atrial fibrillation IO EKG Electrocardiogram- 12 Lead; Status:Complete; Done: [id number] SocHx: Never a smoker Tobacco Use Screening; Status:Complete; Done: [id number] Patient Instructions Please bring all medicines, vitamins, [...] medical therapy is recommended Charmaine Pinedo MD, [facility] Surgical History Problems History of Appendectomy History [...] Systems Cardiovasc (more content not included)... Normal Laser View Tobacco Screening.on 023 Adult depression screening assessment No [facility] [employer] DO Work Phone: Fall risk assessment a) No falls within the last year [facility] [employer] 250 DO Work Phone: Tobacco use status CPHS b) No [facility] [employer] 250 DO Work Phone: XR chest 2V*on 03-20-2023 XR chest 2V* [facility] Main [place] [address] [place] [address] XRay Report Signed Patient: Jessy Dow MR#: [id number] 77 : 1940 Acct:[id number] Age/Sex: 82 / F ADM Date: 03/19/23 Loc: ER Room: Type: [facility] ER Attending Dr: Copies to: Gnozalo Smith Jr, MD Ordering Provider: Gonzalo Smith [...] PNEUMONIA. Impression dictated by: Bernard Pringle Jr., D.OMaggie03/20/2023 8:21 AM Dictation Location: [place] [address] Transcribed By: [facility] 03/20/23820 Dictated By: Bernard Pringle Jr, DO 03/20/23819 Signed By: 03/20/23820 Normal [facility] Activated partial thrombopla stin time (aPTT) in platelet poor plasma by coagulation aOrdered By: Gonzalo Smith on 03-19-2023 aPTT Coag (PPP) [Time] 33.6 s 25.1-36.5 [facility] Alanine aminotransferase [En zymatic activity/volume] in Serum or PlasmaOrdered By: Gonzalo Smith on 03-19-2023 ALT [Catalytic activity/Vol] 9 U/L 7-52 [facility] Albumin [Mass/volume] in Ser um or Plasma by Bromocresol green (BCG) dye binding methoOrdered By: Gonzalo Smith on 03-19-2023 Albumin BCG dye [Mass/Vol] 3.9 g/dL 3.5-5.7 [facility] Alkaline phosphatase [Enzyma tic activity/volume] in Serum or PlasmaOrdered By: Gonzalo Smith on 03-19-2023 ALP [Catalytic activity/Vol] 100 U/L 34-104 [facility] Aspartate aminotransferase [ Enzymatic activity/volume] in Serum or PlasmaOrdered By: Gonzalo Smith on 03-19-2023 AST [Catalytic activity/Vol] 13 U/L 13-39 [facility] Basophils Auto (Bld) [#/Vol] Ordered By: Gonzalo Smith on 03-19-2023 Basophils (Bld) [#/Vol] 0.0 10*3/uL 0.0-0.2 [facility] Basophils/100 WBC Auto (Bld) Ordered By: Gonzalo Smith on 03-19-2023 Basophils/100 WBC (Bld) 0.5 % . [facility] Bilirubin.total [Mass/volume ] in Serum or PlasmaOrdered By: Gonzalo Smith on 03-19-2023 Bilirubin [Mass/Vol] 0.4 mg/dL 0.3-1.0 [facility] Calcium [Mass/volume] in Ser um or PlasmaOrdered By: Gonzalo Smith on 03-19-2023 Calcium [Mass/Vol] 9.1 mg/dL 8.6-10.3 [facility] Carbon dioxide, total [Moles /volume] in Serum or PlasmaOrdered By: Gonzalo Smith on 03-19-2023 CO2 [Moles/Vol] 26.7 mmol/L 21.0-31.0 [facility] Chloride [Moles/volume] in S marylou or PlasmaOrdered By: Gonzalo Smith on 03-19-2023 Chloride [Moles/Vol] 105 mmol/L 98-107 [facility] Complete Blood Count Auto Di ffon 03-19-2023 Basophils (Bld) [#/Vol] 0.0 10*3/uL Normal 0.0-0.2 [facility] Comment on above: Result Comment: PERF ORMED BY: [facility] [address] [place] [address] PATHOLOGIST [employer]OWAN IRWIN M.D. Performed By: #### M G, PTT, CK, HS TROP, PT, CMP, CBC #### [facility] [address] Basophils/100 WBC (Bld) 0.5 % Normal . [facility] Comment on above: Performed By: #### M G, PTT, CK, HS TROP, PT, CMP, CBC #### [address] Eosinophils (Bld) [#/Vol] 0.1 10*3/uL Normal 0.0-0.45 [facility] Comment on above: Performed By: #### M G, PTT, CK, HS TROP, PT, CMP, CBC #### [address] Eosinophils/100 WBC (Bld) 1.4 % Normal . [facility] Comment on above: Performed By: #### M G, PTT, CK, HS TROP, PT, CMP, CBC #### [address] Erythrocyte distribution width (RBC) [Ratio] 16.8 % High 11.9-15.3 [facility] Comment on above: Performed By: #### M G, PTT, CK, HS TROP, PT, CMP, CBC #### [address] Hematocrit (Bld) [Volume fraction] 31.4 % Low 34.0-46.4 [facility] Comment on above: Performed By: #### M G, PTT, CK, HS TROP, PT, CMP, CBC #### [address] Hemoglobin (Bld) [Mass/Vol] 10.1 g/dL Low 11.8-15.4 [facility] Comment on above: Performed By: #### M G, PTT, CK, HS TROP, PT, CMP, CBC #### [place] [address] [place] Lymphocytes (Bld) [#/Vol] 0.8 10*3/uL Low 1.00-4.8 [facility] Comment on above: Performed By: #### M G, PTT, CK, HS TROP, PT, CMP, CBC #### [place] [address] [place] Lymphocytes/100 WBC (Bld) 10.9 % Normal . [facility] Comment on above: Performed By: #### M G, PTT, CK, HS TROP, PT, CMP, CBC #### [address] MCH (RBC) [Entitic mass] 23.3 pg Low 24.7-34.3 [facility] Comment on above: Performed By: #### M G, PTT, CK, HS TROP, PT, CMP, CBC #### [address] MCV (RBC) [Entitic vol] 72.9 fL Low 80-100 [facility] Comment on above: Performed By: #### M G, PTT, CK, HS TROP, PT, CMP, CBC #### [address] Mean Corpuscular HGB Conc 32.0 g/dL Normal 32.0-35.0 [facility] Comment on above: Performed By: #### M G, PTT, CK, HS TROP, PT, CMP, CBC #### [address] Monocytes (Bld) [#/Vol] 0.6 10*3/uL Normal 0.0-0.8 [facility] Comment on above: Performed By: #### M G, PTT, CK, HS TROP, PT, CMP, CBC #### [place] [address] [place] Monocytes/100 WBC (Bld) 19.02 % Normal 0.00-20.00 [facility] Comment on above: Performed By: #### M G, PTT, CK, HS TROP, PT, CMP, CBC #### [place] [address] [place] Monocytes/100 WBC (Bld) 7.7 % Normal . [facility] Comment on above: Performed By: #### M G, PTT, CK, HS TROP, PT, CMP, CBC #### [place] [address] [place] Neutrophils (Bld) [#/Vol] 5.7 10*3/uL Normal 1.8-7.7 [facility] Comment on above: Performed By: #### M G, PTT, CK, HS TROP, PT, CMP, CBC #### [facility] [address] Neutrophils/100 WBC (Bld) 79.5 % Normal . [facility] Comment on above: Performed By: #### M G, PTT, CK, HS TROP, PT, CMP, CBC #### [facility] [address] NRBC% 0.0 /100{WBC} Normal 0-0.5 [facility] Comment on above: Performed By: #### M G, PTT, CK, HS TROP, PT, CMP, CBC #### [address] Platelet mean volume (Bld) [Entitic vol] 8.2 fL Normal 6.3-10.7 [facility] Comment on above: Performed By: #### M G, PTT, CK, HS TROP, PT, CMP, CBC #### [facility] [address] Platelets (Bld) [#/Vol] 291 10*3/uL Normal 150-450 [facility] Comment on above: Performed By: #### M G, PTT, CK, HS TROP, PT, CMP, CBC #### [facility] [address] RBC (Bld) [#/Vol] 4.31 10*6/uL Normal 3.60-5.00 [facility] Comment on above: Performed By: #### M G, PTT, CK, HS TROP, PT, CMP, CBC #### [address] WBC (Bld) [#/Vol] 7.2 10*3/uL Normal 3.8-11.6 [facility] Comment on above: Performed By: #### M G, PTT, CK, HS TROP, PT, CMP, CBC #### [facility] [address] Comprehensive Metabolic Pane barbara 03-19-2023 Albumin [Mass/Vol] 3.9 g/dL Normal 3.5-5.7 [facility] Comment on above: Performed By: #### M G, PTT, CK, HS TROP, PT, CMP, CBC #### [facility] [facility] [address] Albumin/Globulin [Mass ratio] 1.4 {ratio} Normal [facility] Comment on above: Performed By: #### M G, PTT, CK, HS TROP, PT, CMP, CBC #### [address] ALP [Catalytic activity/Vol] 100 U/L Normal 34-104 [facility] Comment on above: Performed By: #### M G, PTT, CK, HS TROP, PT, CMP, CBC #### [facility] [address] [place] [address] ALT [Catalytic activity/Vol] 9 U/L Normal 7-52 [facility] Comment on above: Performed By: #### M G, PTT, CK, HS TROP, PT, CMP, CBC #### [facility] [address] [place] [address] Anion gap [Moles/Vol] 11.3 mmol/L Normal 6.0-15.0 [facility] Comment on above: Performed By: #### M G, PTT, CK, HS TROP, PT, CMP, CBC #### [address] AST [Catalytic activity/Vol] 13 U/L Normal 13-39 [facility] Comment on above: Performed By: #### M G, PTT, CK, HS TROP, PT, CMP, CBC #### [address] Bilirubin [Mass/Vol] 0.4 mg/dL Normal 0.3-1.0 [facility] Comment on above: Performed By: #### M G, PTT, CK, HS TROP, PT, CMP, CBC #### [place] [address] Calcium [Mass/Vol] 9.1 mg/dL Normal 8.6-10.3 [facility] Comment on above: Performed By: #### M G, PTT, CK, HS TROP, PT, CMP, CBC #### [facility] [address] Chloride [Moles/Vol] 105 mmol/L Normal 98-107 [facility] Comment on above: Performed By: #### M G, PTT, CK, HS TROP, PT, CMP, CBC #### [address] CO2 [Moles/Vol] 26.7 mmol/L Normal 21.0-31.0 [facility] Comment on above: Performed By: #### M G, PTT, CK, HS TROP, PT, CMP, CBC #### [address] Creatinine [Mass/Vol] 0.80 mg/dL Normal 0.60-1.20 [facility] Comment on above: Performed By: #### M G, PTT, CK, HS TROP, PT, CMP, CBC #### [address] Creatinine Clr Calc Pharmacy 57.01 [facility] Comment on above: Performed By: #### M G, PTT, CK, HS TROP, PT, CMP, CBC #### [address] GFR/1.73 sq M.predicted MDRD (S/P/Bld) [Vol rate/Area] mL/min/{1.73_m2} [facility] Comment on above: Performed By: #### M G, PTT, CK, HS TROP, PT, CMP, CBC #### [address] Globulin (S) [Mass/Vol] 2.8 g/dL [facility] Comment on above: Performed By: #### M G, PTT, CK, HS TROP, PT, CMP, CBC #### [facility] [address] Glucose [Mass/Vol] 106 mg/dL High 70-100 [facility] Comment on above: Result Comment: [facility] Glucose Reference Range is dependent on time and content of last meal. Glucose of more than 200 mg/dL in a nonstressed, ambulatory subject supports the diagnosis of Diabetes Mellitus. ADA recommended reference range Performed By: #### M G, PTT, CK, HS TROP, PT, CMP, CBC #### [facility] [address] Potassium [Moles/Vol] 4.0 mmol/L Normal 3.5-5.1 [facility] Comment on above: Performed By: #### M G, PTT, CK, HS TROP, PT, CMP, CBC #### [facility] [address] Protein [Mass/Vol] 6.7 g/dL Normal 6.4-8.9 [facility] Comment on above: Performed By: #### M G, PTT, CK, HS TROP, PT, CMP, CBC #### [facility] [address] [place] [address] [place] Sodium [Moles/Vol] 139 mmol/L Normal 136-145 [facility] Comment on above: Performed By: #### M G, PTT, CK, HS TROP, PT, CMP, CBC #### [facility] [address] [place] [address] [place] Urea nitrogen [Mass/Vol] 18 mg/dL Normal 7-25 [facility] Comment on above: Performed By: #### M G, PTT, CK, HS TROP, PT, CMP, CBC #### [facility] [address] [place] [id number] [place] Creatine Kinaseon 03-19-2023 CK [Catalytic activity/Vol] 40 U/L Normal 30-223 [facility] Comment on above: Performed By: #### M G, PTT, CK, HS TROP, PT, CMP, CBC ####[facility] [id number] [place] [id number] [place] Creatine kinase [Enzymatic a ctivity/volume] in Serum or PlasmaOrdered By: Gonzalo Smith on 03-19-2023 CK [Catalytic activity/Vol] 40 U/L 30-223 [facility] Creatinine [Mass/volume] in Serum or PlasmaOrdered By: Gonzalo Smith on 03-19-2023 Creatinine [Mass/Vol] 0.80 mg/dL 0.60-1.20 [facility] ECG 12 lead ECGon 03-19-2023 ECG 12 lead ECG [facility] [place] [address] Electrocardiograph Report Signed Patient: Jessy Dow MR#: [id number] 76 : 1940 Acct:[id number] Age/Sex: 82 / F ADM Date: 03/19/23 [...] was found Confirmed by GONZALO SMITH MD ([id number]) on 03/20/2023 5:40:46 AM Referred By: Electronically Signed By:GONZALO SMITH MD Transcribed By: MUS Signed By Gonzalo Smith Jr, MD [id number] Normal [facility] Eosinophils Auto (Bld) [#/Vo l]Ordered By: Gonzalo Smith on 03-19-2023 Eosinophils (Bld) [#/Vol] 0.1 10*3/uL 0.0-0.45 [facility] Eosinophils/100 WBC Auto (Bl d)Ordered By: Gonzalo Smith on 03-19-2023 Eosinophils/100 WBC (Bld) 1.4 % . [facility] Erythrocyte distribution wid th Auto (RBC) [Ratio]Ordered By: Gonzalo Smith on 03-19-2023 Erythrocyte distribution width (RBC) [Ratio] 16.8 % 11.9-15.3 [facility] Globulin Calc (S) [Mass/Vol] Ordered By: Gonzalo Smith on 03-19-2023 Globulin (S) [Mass/Vol] 2.8 g/dL [facility] Glucose [Mass/volume] in Ser um or PlasmaOrdered By: Gonzalo Smith on 03-19-2023 Glucose [Mass/Vol] 106 mg/dL 70-100 [facility] Comment on above: ADA recommended refe rence rangeRandom Glucose Reference Range is dependent on time and content of last meal. Glucose of more than 200 mg/dL in a nonstressed, ambulatory subject supports the diagnosis of Diabetes Mellitus. Hematocrit Auto (Bld) [Volum e fraction]Ordered By: Gonzalo Smith on 03-19-2023 Hematocrit (Bld) [Volume fraction] 31.4 % 34.0-46.4 [facility] Hemoglobin [Mass/volume] in BloodOrdered By: Gonzalo Smith on 03-19-2023 Hemoglobin (Bld) [Mass/Vol] 10.1 g/dL 11.8-15.4 [facility] Laboratory - CoagulationOrde red By: Gonzalo Smith on 03-19-2023 PT Coag (PPP) [Time] 13.7 s 9.0-12.9 [facility] Leukocytes [#/volume] correc qi for nucleated erythrocytes in Blood by Automated counOrdered By: Gonzalo Smith on 03-19-2023 WBC corrected for nucl RBC Auto (Bld) [#/Vol] 7.2 10*3/uL 3.8-11.6 [facility] Lymphocytes Auto (Bld) [#/Vo l]Ordered By: Gonzalo Smith on 03-19-2023 Lymphocytes (Bld) [#/Vol] 0.8 10*3/uL 1.00-4.8 [facility] Lymphocytes/100 WBC Auto (Bl d)Ordered By: Gonzalo Smith on 03-19-2023 Lymphocytes/100 WBC (Bld) 10.9 % . [facility] MCH Auto (RBC) [Entitic mass ]Ordered By: Gonzalo Smith on 03-19-2023 MCH (RBC) [Entitic mass] 23.3 pg 24.7-34.3 [facility] MCHC Auto (RBC) [Mass/Vol]Or dered By: Gonzalo Smith on 03-19-2023 MCHC (RBC) [Mass/Vol] 32.0 g/dL 32.0-35.0 [facility] MCV Auto (RBC) [Entitic vol] Ordered By: Gonzalo Smith on 03-19-2023 MCV (RBC) [Entitic vol] 72.9 fL 80-100 [facility] Magnesiumon 03-19-2023 Magnesium [Mass/Vol] 1.9 mg/dL Normal 1.9-2.7 [facility] Comment on above: Result Comment: PERF ORMED BY: [facility] [address] [place] [address] PATHOLOGIST MOLD CARRIER ROWAN IRWIN M.D. Performed By: #### M G, PTT, CK, HS TROP, PT, CMP, CBC ####[facility] [address] [place] [address] [facility] Magnesium [Mass/volume] in S marylou or PlasmaOrdered By: Gonzalo Smith on 03-19-2023 Magnesium [Mass/Vol] 1.9 mg/dL 1.9-2.7 [facility] Monocyte distribution width [Entitic volume] in Blood by AutomatedOrdered By: Gonzalo Smith on 03-19-2023 Monocyte distribution width Auto (Bld) [Entitic vol] 19.02 % 0.00-20.00 [facility] Monocytes Auto (Bld) [#/Vol] Ordered By: Gonzalo Smith on 03-19-2023 Monocytes (Bld) [#/Vol] 0.6 10*3/uL 0.0-0.8 [facility] Monocytes/100 WBC Auto (Bld) Ordered By: Gonzalo Smith on 03-19-2023 Monocytes/100 WBC (Bld) 7.7 % . [facility] Neutrophils Auto (Bld) [#/Vo l]Ordered By: Gonzalo Smith on 03-19-2023 Neutrophils (Bld) [#/Vol] 5.7 10*3/uL 1.8-7.7 [facility] Neutrophils/100 WBC Auto (Bl d)Ordered By: Gonzalo Smith on 03-19-2023 Neutrophils/100 WBC (Bld) 79.5 % . [facility] No Panel InformationOrdered By: Gonzalo Smith on 03-19-2023 Estimated GFR (CKD-EPI) > 60.0 mL/Min [facility] Creatinine Clearance (Chem 57.01 [facility] Nucleated erythrocytes [Pres ence] in Blood by Automated countOrdered By: Gonzalo Smith on 03-19-2023 Nucleated RBC Auto Ql (Bld) 0.0 /100{WBC} 0-0.5 [facility] Partial Thromboplastin Timeo n 03-19-2023 aPTT Coag (Bld) [Time] 33.6 s Normal 25.1-36.5 [facility] Comment on above: Result Comment: PERF ORMED BY: [place] [address] PATHOLOGIST MOLD CARRIER ROWAN IRWIN M.D. Performed By: #### M G, PTT, CK, HS TROP, PT, CMP, CBC #### [facility] [address] Platelet mean volume Auto (B ld) [Entitic vol]Ordered By: Gonzalo Smith on 03-19-2023 Platelet mean volume (Bld) [Entitic vol] 8.2 fL 6.3-10.7 [facility] Platelet poor plasma interna tional normalized ratio (INR) by coagulation assay (relatOrdered By: Gonzalo Smith on 03-19-2023 INR Coag (PPP) [Relative time] 1.2 {INR} [facility] Comment on above: INR Therapeutic [...] 03-19-2023 Platelets (Bld) [#/Vol] 291 10*3/uL 150-450 [facility] Potassium [Moles/volume] in Serum or PlasmaOrdered By: Gonzalo Smith on 03-19-2023 Potassium [Moles/Vol] 4.0 mmol/L 3.5-5.1 [facility] Protein [Mass/volume] in Ser um or PlasmaOrdered By: Gonzalo Smith on 03-19-2023 Protein [Mass/Vol] 6.7 g/dL 6.4-8.9 [facility] Prothrombin Time INRon 03-19 INR Coag (PPP) [Relative time] 1.2 {INR} Normal [facility] Comment on above: Result Comment: [...] CK, HS TROP, PT, CMP, CBC #### [facility] [address] PT Coag (PPP) [Time] 13.7 s High 9.0-12.9 [facility] Comment on above: Performed By: #### M G, PTT, CK, HS TROP, PT, CMP, CBC #### [facility] [address] RBC Auto (Bld) [#/Vol]Ordere d By: Gonzalo Smith on 03-19-2023 RBC (Bld) [#/Vol] 4.31 10*6/uL 3.60-5.00 [facility] Serum or plasma albumin/glob ulin mass ratioOrdered By: Gonzalo Smith on 03-19-2023 Albumin/Globulin [Mass ratio] 1.4 {ratio} [facility] Serum or plasma anion gap de terminationOrdered By: Gonzalo Smith on 03-19-2023 Anion gap [Moles/Vol] 11.3 mmol/L 6.0-15.0 [facility] Sodium [Moles/volume] in Ser um or PlasmaOrdered By: Gonzalo Smith on 06-22-2023 Sodium [Moles/Vol] 139 mmol/L 136-145 [facility] Troponin I High Sensitivityo n 03-19-2023 Troponin I High Sensitivity 4.1 pg/mL Normal 0.0-15.0 [facility] Comment on above: Result Comment: PERF ORMED BY: [facility] [address] [place] [address] PATHOLOGIST MOLD CARRIER ROWAN IRWIN M.D. Performed By: #### M G, PTT, CK, HS TROP, PT, CMP, CBC ####[facility] [address] [place] [address] [facility] Troponin I.cardiac [Mass/vol ume] in Serum or Plasma by Detection limit <= 0.01 ng/Ordered By: Gonzalo Smith on 03-19-2023 Troponin I.cardiac DL <= 0.01 ng/mL [Mass/Vol] 4.1 pg/mL 0.0-15.0 [facility] Urea nitrogen [Mass/volume] in Serum or PlasmaOrdered By: Gonzalo Smith on 03-19-2023 Urea nitrogen [Mass/Vol] 18 mg/dL 7-25 [facility] WBC Auto (Bld) [#/Vol]Ordere d By: Gonzalo Smith on 03-19-2023 WBC (Bld) [#/Vol] 7.2 10*3/uL 3.8-11.6 [facility] Office Visit (Cardiology)on 10-14-2022 Follow-up visit Diagnoses/Problems [...] emergency department back in May 2022 at [facility] the record from the visit [...] be getting under control. Charmaine Pinedo MD, [facility] Surgical History Problems History of Appendectomy History [...] Neurological: d (more content not included)... Normal [facility] Tobacco Screening.on 023 Adult depression screening assessment No [facility] [employer] 250 DO Work Phone: Fall risk assessment a) No falls within the last year [facility] [employer] 250 DO Work Phone: Tobacco use status CPHS b) No [facility] [employer] 250 DO Work Phone: CBC AUTO DIFFon 10-04-2022 BASO # 0.0 103/ul Normal 0.0-0.1 [facility] Comment on above: Performed By: #### C BC #### [facility] [address] [place] [address] Dr. Madhuri Justice Basophils/100 WBC (Bld) 0.3 % Normal 0.2-2.0 [facility] Comment on above: Performed By: #### C BC #### [facility] [address] [place] [address] Dr. Madhuri Justice EO # 0.1 103/ul Normal 0.0-0.7 [facility] Comment on above: Performed By: #### C BC #### [facility] [address] [place] [address] Dr. Madhuri Justice Eosinophils/100 WBC (Bld) 1.7 % Normal 0.9-7.0 [facility] Comment on above: Performed By: #### C BC #### [facility] [address] [place] [address] Dr. Madhuri Justice Erythrocyte distribution width (RBC) [Ratio] 16.2 % Critically high 11.0-15.0 [facility] Comment on above: Performed By: #### C BC #### [facility] [address] [place] [address] Dr. Madhuri Justice Hematocrit (Bld) [Volume fraction] 33.0 % Critically low 36.0-48.0 [facility] Comment on above: Performed By: #### C BC #### [facility] [address] [place] [address] Dr. Madhuri Justice Hemoglobin (Bld) [Mass/Vol] 10.9 g/dL Critically low 12.0-16.0 [facility] Comment on above: Performed By: #### C BC #### [facility] [address] [place] [address] Dr. Madhuri Justice IG # 0.02 10e3/ul Normal 0.00-0.03 [facility] Comment on above: Performed By: #### C BC #### [facility] [address] [place] [address] Dr. Madhuri Justice IG % 0.3 % Normal 0.0-0.5 [facility] Comment on above: Performed By: #### C BC #### [facility] [address] [place] [address] Dr. Madhuri Justice LYMPH # 0.8 103/ul Critically low 1.2-3.8 [facility] Comment on above: Performed By: #### C BC #### [facility] [address] [place] [address] Dr. Madhuri Justice Lymphocytes/100 WBC (Bld) 13.4 % Critically low 20.5-60.0 [facility] Comment on above: Performed By: #### C BC #### [facility] [address] [place] [address] Dr. Madhuri Justice MANUAL DIFF REQ NO Normal [facility] Comment on above: Performed By: #### C BC #### [facility] [address] [place] [address] Dr. Madhuri Justice MCH (RBC) [Entitic mass] 24.4 pg Critically low 26.7-34.0 [facility] Comment on above: Performed By: #### C BC #### [facility] [address] [place] [address] Dr. Madhuri Justice MCHC (RBC) [Mass/Vol] 33.0 g/dL Normal 29.9-35.2 [facility] Comment on above: Performed By: #### C BC #### [facility] [address] [place] [address] Dr. Madhuri Justice MCV (RBC) [Entitic vol] 73.8 fL Critically low 81.0-99.0 [facility] Comment on above: Performed By: #### C BC #### [facility] [address] [place] [address] Dr. Madhuri Justice MONO # 0.5 103/ul Normal 0.3-0.8 [facility] Comment on above: Performed By: #### C BC #### [facility] [address] [place] [address] Dr. Madhuri Justice Monocytes/100 WBC (Bld) 8.0 % Normal 1.7-12.0 [facility] Comment on above: Performed By: #### C BC #### [facility] [address] [place] [address] Dr. Madhuri Justice NEUT # 4.6 103/ul Normal 1.4-6.5 [facility] Comment on above: Performed By: #### C BC #### [facility] [address] [place] [address] Dr. Madhuri Justice Neutrophils/100 WBC (Bld) 76.3 % Critically high 43.0-75.0 [facility] Comment on above: Performed By: #### C BC #### [facility] [address] [place] [address] Dr. Madhuri Justice Platelet mean volume (Bld) [Entitic vol] 9.5 fL Normal 9.5-13.5 [facility] Comment on above: Performed By: #### C BC #### [facility] [address] [place] [address] Dr. Madhuri Justice PLT 249 103/ul Normal 150-450 [facility] Comment on above: Performed By: #### C BC #### [facility] [address] [place] [address] Dr. Madhuri Justice RBC 4.47 106/ul Normal 4.20-5.40 [facility] Comment on above: Performed By: #### C BC #### [facility] [address] [place] [address] Dr. Madhuri Justice WBC 6.0 103/ul Normal 4.0-11.0 [facility] Comment on above: Performed By: #### C BC #### [facility] [address] [place] [address] [address] Madhuri Justice LIPID PROFILEon 10-04-2022 CHOL-HDL RATIO NORM SEE BELOW Normal [facility] Comment on above: Result Comment: 3.3 - 4.4 LOW RISK 4.4 - 7.1 AVERAGE RISK 7.1 - 11.0 MODERATE RISK >11.0 HIGH RISK Performed By: #### L ACT #### [facility] [address] [place] [address] [address] Madhuri Justice Cholesterol [Mass/Vol] 159 mg/dL Normal <=200 Th [facility] Comment on above: Performed By: #### L ACT #### [facility] [address] [place] [address] Dr. Madhuri Justice Cholesterol in HDL [Mass/Vol] 54 mg/dL Normal 40-60 [facility] Comment on above: Performed By: #### L ACT #### [facility] [address] [place] [address] Dr. Madhuri Justice Cholesterol in LDL [Mass/Vol] 84.4 mg/dL Normal [facility] Comment on above: Performed By: #### L ACT #### [facility] [address] [place] [address] Dr. Madhuri Justice Cholesterol.total/Chol esterol in HDL [Mass ratio] 2.9 {ratio} Normal [facility] Comment on above: Performed By: #### L ACT #### [facility] [address] [place] [address] Dr. Madhuri Justice HDL NORMAL > or = 60 mg/dl - LO W CARDIOVASCULAR RISK <40 mg/dl - HIGH CARDIOVASCULAR RISK Normal [facility] Comment on above: Performed By: #### L ACT #### [facility] [id number] Madhuri Justice LDL CALC NORMAL SEE BELOW Normal [facility] Comment on above: Result Comment: <100 mg/dl OPTIMAL 100 - 129 mg/dl NEAR OR ABOVE OPTIMAL 130 - 159 mg/dl BORDERLINE HIGH 160 - 189 mg/dl HIGH >190 mg/dl VERY HIGH Performed By: #### L ACT #### [facility] [address] [place] [address] [address] Madhuri Justice Triglyceride [Mass/Vol] 103 mg/dL Normal <=150 [facility] Comment on above: Performed By: #### L ACT #### [facility] [address] [place] [address] [address] Madhuri Justice VLDL CALC 20.6 mg/dL Normal [facility] Comment on above: Performed By: #### L ACT #### [facility] [address] [place] [address] [address] Madhuri Justice PROF 14(COMP METB)on 023 Albumin [Mass/Vol] 3.0 g/dL Critically low 3.4-5.0 [facility] Comment on above: Performed By: #### L IPID, CMP #### [facility] [address] [place] [address] Dr. Madhuri Justice Albumin/Globulin [Mass ratio] 0.8 {ratio} Normal [facility] Comment on above: Performed By: #### L IPID, CMP #### [facility] [address] [place] [address] Dr. Madhuri Justice ALP [Catalytic activity/Vol] 103 U/L Normal 46-116 [facility] Comment on above: Performed By: #### L IPID, CMP #### [facility] [address] [place] [address] Dr. Madhuri Justice ALT [Catalytic activity/Vol] 10 U/L Critically low 14-59 [facility] Comment on above: Performed By: #### L IPID, CMP #### [facility] [address] [place] [address] Dr. Madhuri Justice Anion gap [Moles/Vol] 10.5 mmol/L Normal [facility] Comment on above: Performed By: #### L IPID, CMP #### [facility] [address] [place] [address] Dr. Madhuri Justice AST [Catalytic activity/Vol] 13 U/L Critically low 15-37 [facility] Comment on above: Performed By: #### L IPID, CMP #### [facility] [address] [place] [address] [address] Madhuri Justice Bilirubin [Mass/Vol] 0.6 mg/dL Normal 0.2-1.0 [facility] Comment on above: Performed By: #### L IPID, CMP #### [facility] [address] [place] [address] Dr. Madhuri Justice Calcium [Mass/Vol] 8.9 mg/dL Normal 8.5-10.1 [facility] Comment on above: Performed By: #### L IPID, CMP #### [facility] [address] [place] [address] Dr. Madhuri Justice Chloride [Moles/Vol] 105 mmol/L Normal 98-107 [facility] Comment on above: Performed By: #### L IPID, CMP #### [facility] [address] [place] [address] Dr. Madhuri Justice CO2 [Moles/Vol] 30.6 mmol/L Normal 21.0-32.0 [facility] Comment on above: Performed By: #### L IPID, CMP #### [facility] [address] [place] [address] Dr. Madhuri Justice Creatinine [Mass/Vol] 0.85 mg/dL Normal 0.55-1.02 [facility] Comment on above: Performed By: #### L IPID, CMP #### [facility] [address] [place] [address] Dr. Madhuri Justice EGFR-AF MEXICAN >60 Normal >=60 [facility] Comment on above: Performed By: #### L IPID, CMP #### [facility] [address] [place] [address] Dr. Madhuri Justice EGFR-NON AF MEXICAN >60 Normal >=60 [facility] Comment on above: Performed By: #### L IPID, CMP #### [facility] [address] [place] [address] Dr. Madhuri Justice Globulin (S) [Mass/Vol] 3.9 g/dL Normal [facility] Comment on above: Performed By: #### L IPID, CMP #### [facility] [address] [place] [address] [address] Madhuri Justice Glucose [Mass/Vol] 112 mg/dL Critically high 74-106 T [facility] Comment on above: Performed By: #### L IPID, CMP #### [facility] [address] [place] [address] Dr. Madhuri Justice Potassium [Moles/Vol] 4.1 mmol/L Normal 3.5-5.1 [facility] Comment on above: Performed By: #### L IPID, CMP #### [facility] [address] [address] [address] Madhuri Justice Protein [Mass/Vol] 6.9 g/dL Normal 6.4-8.2 [facility] Comment on above: Performed By: #### L IPID, CMP #### [facility] [address] [place] [address] Dr. Madhuri Justice Sodium [Moles/Vol] 142 mmol/L Normal 136-145 [facility] Comment on above: Performed By: #### L IPID, CMP #### [facility] [address] [address] [address] Madhuri Justice Urea nitrogen [Mass/Vol] 15.0 mg/dL Normal 7.0-18.0 [facility] Comment on above: Performed By: #### L IPID, CMP #### [facility] [address] [place] [address] Dr. Madhuri Justice Urea nitrogen/Creatinine [Mass ratio] 17.6 mg/mg Normal [facility] Comment on above: Performed By: #### L IPID, CMP #### [facility] [address] [place] [address] Dr. Madhuri Justice Activated partial thrombopla stin time (aPTT) in platelet poor plasma by coagulation aOrdered By: Robby York on 06-06-2022 aPTT Coag (PPP) [Time] 32.7 s 25.1-36.5 [facility] Albumin [Mass/volume] in Ser um or PlasmaOrdered By: Robby York on 06-06-2022 Albumin [Mass/Vol] 2.8 g/dL 3.2-5.5 [facility] Automated erythrocytes count in urine sediment (number/area)Ordered By: Natalie Brian on 06-06-2022 RBC Auto (Urine sed) [#/Area] None seen [HPF] 0-4 [facility] Automated leukocytes count i n urine sediment (number/area)Ordered By: Natalie Brian on 06-06-2022 WBC Auto (Urine sed) [#/Area] 0-1 [HPF] 0-4 [facility] Basophils Auto (Bld) [#/Vol] Ordered By: Robby York on 06-06-2022 Basophils (Bld) [#/Vol] 0.0 10*3/uL 0.0-0.2 [facility] Basophils/100 WBC Auto (Bld) Ordered By: Robby York on 06-06-2022 Basophils/100 WBC (Bld) 0.5 % . [facility] Bilirubin Test strip Ql (U)O rdered By: Natalie Brian on 06-06-2022 Bilirubin Ql (U) Negative Negative [facility] Blood hemoglobin measurement (mass/volume)Ordered By: Robby York on 06-06-2022 Hemoglobin (Bld) [Mass/Vol] 9.3 g/dL 11.8-15.4 [facility] Blood leukocytes automated c ount (number/volume)Ordered By: Robby York on 06-06-2022 WBC (Bld) [#/Vol] 5.1 10*3/uL 4.5-11.0 [facility] COVID-19 SOFIAOrdered By: Chris York on 06-06-2022 SARS-CoV+SARS-CoV-2 (COVID-19) Ag IA.rapid Ql (Resp) Negative Negative [facility] Comment on above: This is a duplicate Joselyn SARS Antigen (TERE) result to be used for statistical tracking purpose only. Color Auto (U)Ordered By: Honorio Brian on 06-06-2022 Color (U) Yellow Yellow [facility] Creatinine and Glomerular fi ltration rate.predicted panel (S/P/Bld)Ordered By: Robby York on 06-06-2022 Creatinine [Mass/Vol] 0.84 mg/dL 0.44-1.03 [facility] Eosinophils Auto (Bld) [#/Vo l]Ordered By: Robby York on 06-06-2022 Eosinophils (Bld) [#/Vol] 0.1 10*3/uL 0.0-0.45 [facility] Eosinophils/100 WBC Auto (Bl d)Ordered By: Robby York on 06-06-2022 Eosinophils/100 WBC (Bld) 1.9 % . [facility] Erythrocyte distribution wid th Auto (RBC) [Ratio]Ordered By: Robby York on 06-06-2022 Erythrocyte distribution width (RBC) [Ratio] 16.7 % 11.9-15.3 [facility] Estimated glomerular filtrat ion rate (GFR) non- AmericanOrdered By: Robby York on 06-06-2022 GFR/1.73 sq M.predicted among non-blacks MDRD (S/P/Bld) [Vol rate/Area] > 60 mL/Min [facility] Globulin Calc (S) [Mass/Vol] Ordered By: Robby York on 06-06-2022 Globulin (S) [Mass/Vol] 2.9 g/dL [facility] Hematocrit Auto (Bld) [Volum e fraction]Ordered By: Robby York on 06-06-2022 Hematocrit (Bld) [Volume fraction] 29.5 % 34.0-46.4 [facility] Ketones Auto test strip (U) [Mass/Vol]Ordered By: Natalie Brian on 06-06-2022 Ketones (U) [Mass/Vol] Negative Negative [facility] - Chemistry and C hemistry - challengeOrdered By: Robby York on 06-06-2022 Natriuretic peptide B (Bld) [Mass/Vol] 37.0 pg/mL 5-100 [facility] - CoagulationOrde red By: Robby York on 06-06-2022 PT Coag (PPP) [Time] 17.4 s 9.0-12.9 [facility] - Hematology and Cell countsOrdered By: Robby York on 06-06-2022 Nucleated RBC/100 WBC (Bld) [Ratio] 0.0 % 0-0.5 [facility] - UrinalysisOrder ed By: Natalie Brian on 06-06-2022 Hyaline casts LM Ql (Urine sed) 0-8 [LPF] 0-8 [facility] Lymphocytes Auto (Bld) [#/Vo l]Ordered By: Robby York on 06-06-2022 Lymphocytes (Bld) [#/Vol] 0.7 10*3/uL 1.00-4.8 [facility] Lymphocytes/100 WBC Auto (Bl d)Ordered By: Robby York on 06-06-2022 Lymphocytes/100 WBC (Bld) 13.9 % . [facility] MCH Auto (RBC) [Entitic mass ]Ordered By: Robby York on 06-06-2022 MCH (RBC) [Entitic mass] 24.2 pg 24.7-34.3 [facility] MCHC Auto (RBC) [Mass/Vol]Or dered By: Robby York on 06-06-2022 MCHC (RBC) [Mass/Vol] 31.4 g/dL 32.0-35.0 [facility] MCV Auto (RBC) [Entitic vol] Ordered By: Robby York on 06-06-2022 MCV (RBC) [Entitic vol] 76.9 fL 80-100 [facility] Monocytes Auto (Bld) [#/Vol] Ordered By: Robby York on 06-06-2022 Monocytes (Bld) [#/Vol] 0.5 10*3/uL 0.0-0.8 [facility] Monocytes/100 WBC Auto (Bld) Ordered By: Robby York on 06-06-2022 Monocytes/100 WBC (Bld) 9.6 % . [facility] Neutrophils Auto (Bld) [#/Vo l]Ordered By: Robby York on 06-06-2022 Neutrophils (Bld) [#/Vol] 3.8 10*3/uL 1.8-7.7 [facility] Neutrophils/100 WBC Auto (Bl d)Ordered By: Robby York on 06-06-2022 Neutrophils/100 WBC (Bld) 74.1 % . [facility] Nitrite Test strip Ql (U)Ord ered By: Natalie Brian on 06-06-2022 Nitrite Ql (U) Negative Negative [facility] No Panel InformationOrdered By: Robby York on 06-06-2022 Estimated GFR () > 60 mL/Min [facility] Comment on above: GFR estimated refere nce range: According to KDOQI guidelines, <60 ml/min/1.73m2 is sufficient to diagnose a patient with chronic kidney disease. Pharmacy Creatinine Clearance (Chem 83.60 [facility] SARS Antigen (LFIA) [facility] Platelet mean volume Auto (B ld) [Entitic vol]Ordered By: Robby York on 06-06-2022 Platelet mean volume (Bld) [Entitic vol] 8.1 fL 6.3-10.7 [facility] Platelet poor plasma interna tional normalized ratio (INR) by coagulation assay (relatOrdered By: Robby York on 06-06-2022 INR Coag (PPP) [Relative time] 1.5 {INR} [facility] Comment on above: INR Therapeutic [...] 06-06-2022 Platelets (Bld) [#/Vol] 225 10*3/uL 150-450 [facility] Protein Auto test strip (U) [Mass/Vol]Ordered By: Natalie Brian on 06-06-2022 Protein (U) [Mass/Vol] Negative Negative [facility] Protein [Mass/volume] in Ser um or PlasmaOrdered By: Robby York on 06-06-2022 Protein [Mass/Vol] 5.7 g/dL 6.1-7.9 [facility] RBC Auto (Bld) [#/Vol]Ordere d By: Robby York on 06-06-2022 RBC (Bld) [#/Vol] 3.84 10*6/uL 3.60-5.00 [facility] Serum or plasma alanine sinlgeton otransferase measurement without P-5'-P (enzymatic activiOrdered By: Robby York on 06-06-2022 ALT No additional P-5'-P [Catalytic activity/Vol] 10 U/L 10-60 [facility] Serum or plasma albumin/glob ulin mass ratioOrdered By: Robby York on 06-06-2022 Albumin/Globulin [Mass ratio] 1.0 {ratio} [facility] Serum or plasma alkaline antwan sphatase measurement (enzymatic activity/volume)Ordered By: Robby York on 06-06-2022 ALP [Catalytic activity/Vol] 85 U/L 32-92 [facility] Serum or plasma anion gap de terminationOrdered By: Robby York on 06-06-2022 Anion gap [Moles/Vol] 12.5 mmol/L 6.0-15.0 [facility] Serum or plasma aspartate am inotransferase measurement (enzymatic activity/volume)Ordered By: Robby York on 06-06-2022 AST [Catalytic activity/Vol] 15 U/L 10-42 [facility] Serum or plasma calcium arabella urement (mass/volume)Ordered By: Robby York on 06-06-2022 Calcium [Mass/Vol] 8.3 mg/dL 8.2-10.2 [facility] Serum or plasma chloride marlen surement (moles/volume)Ordered By: Robby York on 06-06-2022 Chloride [Moles/Vol] 106 mmol/L 95-114 [facility] Serum or plasma glucose arabella urement (mass/volume)Ordered By: Robby York on 06-06-2022 Glucose [Mass/Vol] 115 mg/dL 70-100 [facility] Comment on above: ADA recommended refe rence range Random Glucose Reference Range is dependent on time and content of last meal. Glucose of more than 200 mg/dL in a nonstressed, ambulatory subject supports the diagnosis of Diabetes Mellitus. Serum or plasma potassium me asurement (moles/volume)Ordered By: Robby York on 09-09-2022 Potassium [Moles/Vol] 3.7 mmol/L 3.5-5.1 [facility] Serum or plasma sodium measu rement (moles/volume)Ordered By: Robby York on 06-06-2022 Sodium [Moles/Vol] 140 mmol/L 136-146 [facility] Serum or plasma total biliru bin measurement (mass/volume)Ordered By: Robby York on 06-06-2022 Bilirubin [Mass/Vol] 0.4 mg/dL 0.3-1.2 [facility] Serum or plasma total carbon dioxide measurement (moles/volume)Ordered By: Robby York on 06-06-2022 CO2 [Moles/Vol] 25.2 mmol/L 22.0-30.0 [facility] Serum or plasma urea nitroge n measurement (mass/volume)Ordered By: Robby York on 06-06-2022 Urea nitrogen [Mass/Vol] 14 mg/dL 9-23 [facility] Specific gravity Auto test s trip (U) [Rel density]Ordered By: Natalie Brian on 06-06-2022 Specific gravity (U) [Rel density] 1.013 1.001-1.03 0 [facility] Squamous epithelial cells de tection in urine sediment by light microscopyOrdered By: Natalie Brian on 06-06-2022 Epithelial cells.squamous LM Ql (Urine sed) 0-1 [HPF] 0-2 [facility] Troponin I.cardiac [Mass/vol ume] in Serum or Plasma by High sensitivity methodOrdered By: Natalie Brian on 06-06-2022 Troponin I.cardiac High sensitivity method [Mass/Vol] 7 pg/mL 0-15 [facility] Urine bacteria detection by automated methodOrdered By: Natalie Brian on 06-06-2022 Bacteria Auto Ql (U) None seen None Seen [facility] Urine clarity by refractomet ry automatedOrdered By: Natalie Brian on 06-06-2022 Clarity Refractometry automated (U) Clear Clear [facility] Urine glucose measurement by automated test strip (mass/volume)Ordered By: Natalie Brian on 06-06-2022 Glucose Auto test strip (U) [Mass/Vol] Normal mg/dL Normal [facility] Urine hemoglobin detection b y automated test stripOrdered By: Natalie Brian on 06-06-2022 Hemoglobin Auto test strip Ql (U) Negative Negative [facility] Urine leukocyte esterase det ection by automated test stripOrdered By: Natalie Brian on 06-06-2022 Leukocyte esterase Auto test strip Ql (U) 2+ Negative [facility] Urobilinogen Auto test strip (U) [Mass/Vol]Ordered By: Natalie Brian on 06-06-2022 Urobilinogen (U) [Mass/Vol] Normal mg/dL Normal [facility] pH Auto test strip (U)Ordere d By: Natalie Brian on 06-06-2022 pH (U) 7.0 [pH] 5.0-9.0 [facility] Tobacco Screening.on 022 Adult depression screening assessment No [facility] [employer] 250 DO Work Phone: Fall risk assessment a) No falls within the last year [facility] [employer] 250 DO Work Phone: Tobacco use status CPHS b) No [facility] [employer] n[employer] 250 DO Work Phone: OVA AND PARASITE EXAMINATION on 12-27-2021 [employer] Parasite Exam Final report Normal [facility] Comment on above: Result Comment: Thes e results were obtained using wet preparation(s) and trichrome stained smear. This test does not include testing for Cryptosporidium parvum, Cyclospora, or Microsporidia. Performed By: #### O VAPE #### [facility] [address] [place] [address] Dr. Madhuri Justice Result 1 Comment Normal [facility] Comment on above: Result Comment: No o va, cysts, or parasites seen. . One negative specimen does not rule out the possibility of a parasitic infection. Performed By: #### O VAPE #### [facility] [address] [place] [address] Dr. Madhuri Justice GIARDIA LAMBLIA AND CRYPTO D ETECTIONon 12-18-2021 Cryptosporidium EIA Negative Normal Negative [facility] Comment on above: Performed By: #### G IACRY #### [facility] [address] [address] [address] Madhuri Justice Giardia lamblia Ag, EIA Negative Normal Negative [facility] Comment on above: Performed By: #### G IACRY #### [facility] [address] [address] [address] Madhuri Justice C. DIFF PCRon 12-16-2021 C. DIFFICILE PCR Negative Normal NEGATIVE [facility] Comment on above: Performed By: #### C DIFPOC #### [facility] [address] [place] [address] Dr. Madhuri Justice CBC AUTO DIFFon 12-16-2021 BASO # 0.0 103/ul Normal 0.0-0.1 [facility] Comment on above: Performed By: #### C BC #### [facility] [address] [place] [address] Dr. Madhuri Justice Basophils/100 WBC (Bld) 0.4 % Normal 0.2-2.0 [facility] Comment on above: Performed By: #### C BC #### [facility] [address] [place] [address] Dr. Madhuri Justice EO # 0.1 103/ul Normal 0.0-0.7 [facility] Comment on above: Performed By: #### C BC #### [facility] [address] [place] [address] Dr. Madhuri Justice Eosinophils/100 WBC (Bld) 1.0 % Normal 0.9-7.0 [facility] Comment on above: Performed By: #### C BC #### [facility] [address] [place] [address] Dr. Madhuri Justice Erythrocyte distribution width (RBC) [Ratio] 16.2 % Critically high 11.0-15.0 [facility] Comment on above: Performed By: #### C BC #### [facility] [address] [place] [address] Dr. Madhuri Justice Hematocrit (Bld) [Volume fraction] 37.7 % Normal 36.0-48.0 [facility] Comment on above: Performed By: #### C BC #### [facility] [address] [address] [address] Madhuri Justice Hemoglobin (Bld) [Mass/Vol] 11.2 g/dL Critically low 12.0-16.0 [facility] Comment on above: Performed By: #### C BC #### [facility] [address] [address] [address] Madhuri Justice IG # 0.01 10e3/ul Normal 0.00-0.03 [facility] Comment on above: Performed By: #### C BC #### [facility] [address] [place] [address] Dr. Madhuri Justice IG % 0.1 % Normal 0.0-0.5 [facility] Comment on above: Performed By: #### C BC #### [facility] [address] [place] [address] Dr. Madhuri Justice LYMPH # 0.9 103/ul Critically low 1.2-3.8 [facility] Comment on above: Performed By: #### C BC #### [facility] [address] [place] [address] Dr. Madhuri Justice Lymphocytes/100 WBC (Bld) 12.2 % Critically low 20.5-60.0 [facility] Comment on above: Performed By: #### C BC #### [facility] [address] [place] [address] Dr. Madhuri Justice MANUAL DIFF REQ NO Normal [facility] Comment on above: Performed By: #### C BC #### [facility] [address] [address] [address] Madhuri Justice MCH (RBC) [Entitic mass] 24.7 pg Critically low 26.7-34.0 [facility] Comment on above: Performed By: #### C BC #### [facility] [address] [place] [address] Dr. Madhuri Justice MCHC (RBC) [Mass/Vol] 29.7 g/dL Critically low 29.9-35.2 [facility] Comment on above: Performed By: #### C BC #### [facility] [address] [place], [place] [id number] Dr. Madhuri Justice MCV (RBC) [Entitic vol] 83.0 fL Normal 81.0-99.0 [facility] Comment on above: Performed By: #### C BC #### [facility] [address] [place] [address] Dr. Madhuri Justice MONO # 0.6 103/ul Normal 0.3-0.8 [facility] Comment on above: Performed By: #### C BC #### [facility] [address] [place] [address] Dr. Madhuri Justice Monocytes/100 WBC (Bld) 7.7 % Normal 1.7-12.0 [facility] Comment on above: Performed By: #### C BC #### [facility] [address] [place] [address] Dr. Madhuri Justice NEUT # 5.7 103/ul Normal 1.4-6.5 [facility] Comment on above: Performed By: #### C BC #### [facility] [address] [place] [address] Dr. Madhuri Justice Neutrophils/100 WBC (Bld) 78.6 % Critically high 43.0-75.0 [facility] Comment on above: Performed By: #### C BC #### [facility] [address] [place] [address] Dr. Madhuri Justice Platelet mean volume (Bld) [Entitic vol] 10.4 fL Normal 9.5-13.5 [facility] Comment on above: Performed By: #### C BC #### [facility] [address] [place] [address] Dr. Madhuri Justice PLT 290 103/ul Normal 150-450 [facility] Comment on above: Performed By: #### C BC #### [facility] [address] [place] [address] Dr. Madhuri Justice RBC 4.54 106/ul Normal 4.20-5.40 [facility] Comment on above: Performed By: #### C BC #### [facility] [address] [place] [address] Dr. Madhuri Justice WBC 7.2 103/ul Normal 4.0-11.0 [facility] Comment on above: Performed By: #### C BC #### [facility] [address] [place] [address] Dr. Madhuri Justice ER URINE PROFILEon 2 Bilirubin Ql (U) Negative Normal NEGATIVE [facility] Comment on above: Performed By: #### E RUR #### [facility] [address] [place] [address] Dr. Madhuri Justice Clarity (U) CLEAR Normal CLEAR [facility] Comment on above: Performed By: #### E RUR #### [facility] [address] [place] [address] Dr. Madhuri Justice Color (U) YELLOW Normal YELLOW [facility] Comment on above: Performed By: #### E RUR #### [facility] [address] [place] [address] Dr. Madhuri Justice ERUAHD A micrscopic examina tion will be performed if indicated. Normal [facility] Comment on above: Performed By: #### E RUR #### [facility] [address] [place] [address] Dr. Madhuri Justice Glucose Ql (U) Negative Normal NEGATIVE [facility] Comment on above: Performed By: #### E RUR #### [facility] [address] [place] [address] Dr. Madhuri Justice Hemoglobin Ql (U) Negative Normal NEGATIVE [facility] Comment on above: Performed By: #### E RUR #### [facility] [address] [place] [address] Dr. Madhuri Justice Ketones Ql (U) Negative Normal NEGATIVE [facility] Comment on above: Performed By: #### E RUR #### [facility] [address] [place] [address] Dr. Madhuri Justice LEUKOCYTES Negative Normal NEGATIVE [facility] Comment on above: Performed By: #### E RUR #### [facility] [address] [place] [address] Dr. Madhuri Justice Nitrite Ql (U) Negative Normal NEGATIVE [facility] Comment on above: Performed By: #### E RUR #### [facility] [address] [place] [address] Dr. Madhuri Justice pH (U) 6.0 [pH] Normal 5-9 [facility] Comment on above: Performed By: #### E RUR #### [facility] [address] [place] [address] Dr. Madhuri Justice SPEC GRAVITY 1.020 Normal 1.005-<=1. 025 [facility] Comment on above: Performed By: #### E RUR #### [facility] [address] [place] [address] Dr. Madhuri Justice UA PROTEIN Negative Normal NEGATIVE/ TRACE [facility] Comment on above: Performed By: #### E RUR #### [facility] [address] [place] [address] Dr. Madhuri Justice UR MICRO IND NOT INDICATED Normal [facility] Comment on above: Performed By: #### E RUR #### [facility] [address] [place] [address] Dr. Madhuri Justice Urobilinogen Qn (U) 0.2 {Bud'U}/dL Normal 0.2 - 1. 0 [facility] Comment on above: Performed By: #### E RUR #### [facility] [address] [place] [address] Dr. Madhuri Justice PROF 14(COMP METB)on 022 Albumin [Mass/Vol] 3.3 g/dL Critically low 3.4-5.0 [facility] Comment on above: Performed By: #### L ACT #### [facility] [address] [place] [address] Dr. Madhuri Justice Albumin/Globulin [Mass ratio] 0.8 {ratio} Normal [facility] Comment on above: Performed By: #### L ACT #### [facility] [address] [place] [address] Dr. Madhuri Justice ALP [Catalytic activity/Vol] 114 U/L Normal 46-116 [facility] Comment on above: Performed By: #### L ACT #### [facility] [address] [address] [address] Madhuri Justice ALT [Catalytic activity/Vol] 11 U/L Critically low 14-59 [facility] Comment on above: Performed By: #### L ACT #### [facility] [address] [address] [address] Madhuri Justice Anion gap [Moles/Vol] 10.6 mmol/L Normal [facility] Comment on above: Performed By: #### L ACT #### [facility] [address] [address] [address] Madhuri Justice AST [Catalytic activity/Vol] 13 U/L Critically low 15-37 [facility] Comment on above: Performed By: #### L ACT #### [facility] [address] [place] [address] Dr. Madhuri Justice Bilirubin [Mass/Vol] 0.5 mg/dL Normal 0.2-1.3 [facility] Comment on above: Performed By: #### L ACT #### [facility] [address] [place] [address] Dr. Madhuri Justice Calcium [Mass/Vol] 8.9 mg/dL Normal 8.5-10.1 [facility] Comment on above: Performed By: #### L ACT #### [facility] [address] [place] [address] Dr. Madhuri Justice Chloride [Moles/Vol] 103 mmol/L Normal 98-107 [facility] Comment on above: Performed By: #### L ACT #### [facility] [address] [address] [address] Madhuri Justice CO2 [Moles/Vol] 28.2 mmol/L Normal 22.0-30.0 [facility] Comment on above: Performed By: #### L ACT #### [facility] [address] [address] [address] Madhuri Justice Creatinine [Mass/Vol] 0.93 mg/dL Normal 0.52-1.04 [facility] Comment on above: Performed By: #### L ACT #### [facility] [address] [address] [address] Madhuri Justice EGFR-AF MEXICAN >60 Normal >=60 [facility] Comment on above: Performed By: #### L ACT #### [facility] [address] [address] [address] Madhuri Justice EGFR-NON AF MEXICAN 58 mL/min/1.73m2 Critically low >=60 [facility] Comment on above: Performed By: #### L ACT #### [facility] [address] [address] [address] Madhuri Justice Globulin (S) [Mass/Vol] 4.0 g/dL Normal [facility] Comment on above: Performed By: #### L ACT #### [facility] [address] [address] [address] Madhuri Justice Glucose [Mass/Vol] 121 mg/dL Critically high 74-106 T [facility] Comment on above: Performed By: #### L ACT #### [facility] [address] [address] [address] Madhuri Justice Potassium [Moles/Vol] 3.8 mmol/L Normal 3.4-5.0 [facility] Comment on above: Performed By: #### L ACT #### [facility] [address] [address] [address] Madhuri Justice Protein [Mass/Vol] 7.3 g/dL Normal 6.1-8.2 [facility] Comment on above: Performed By: #### L ACT #### [facility] [address] [address] [address] Madhuri Justice Sodium [Moles/Vol] 138 mmol/L Normal 137-145 [facility] Comment on above: Performed By: #### L ACT #### [facility] [address] [address] [address] Madhuri Justice Urea nitrogen [Mass/Vol] 14.0 mg/dL Normal 7.0-18.0 [facility] Comment on above: Performed By: #### L ACT #### [facility] [address] [address] [address] Madhuri Justice Urea nitrogen/Creatinine [Mass ratio] 15.1 mg/mg Normal [facility] Comment on above: Performed By: #### L ACT #### [facility] [address] [place] [address] Dr. Madhuri Justice AMYLASEon 10-26-2021 Amylase [Catalytic activity/Vol] 35 U/L Normal 31-110 [facility] Comment on above: Performed By: #### L ACT #### [facility] [address] [place] [address] Dr. Madhuri Justice CBC W MANUAL DIFFon 10-26-19 ANISOCYTOSIS SLIGHT Normal [facility] Comment on above: Performed By: #### C BCMAN #### [facility] [address] [place] [address] Dr. Madhuri Justice ATYPICAL LYMPH # Normal [facility] Comment on above: Performed By: #### C BCMAN #### [facility] [address] [place] [address] Dr. Madhuri Justice ATYPICAL LYMPH % Normal [facility] Comment on above: Performed By: #### C BCMAN #### [facility] [address] [place] [address] Dr. Madhuri Justice BAND # 0.2 103/ul Normal 0.0-0.3 [facility] Comment on above: Performed By: #### C BCMAN #### [facility] [address] [place] [address] Dr. Madhuri Justice BAND % 2 % Normal 0-5 [facility] Comment on above: Performed By: #### C BCMAN #### [facility] [address] [place] [address] Dr. Madhuri Justice BASOM # 0.00 103/ul Normal 0.00-0.10 [facility] Comment on above: Performed By: #### C BCMAN #### [facility] [address] [place] [address] Dr. Madhuri Justice BASOM % 0.0 % Critically low 0.2-2.0 [facility] Comment on above: Performed By: #### C BCMAN #### [facility] [address] [place] [address] Dr. Madhuri Justice BLAST # Normal [facility] Comment on above: Performed By: #### C DANNY #### [facility] [address] [place] [address] Dr. Madhuri Justice BLAST % Normal [facility] Comment on above: Performed By: #### C DANNY #### [facility] [address] [place] [address] Dr. Madhuri Justice CORRECTED WBC Normal 4.0-11.0 [facility] Comment on above: Performed By: #### C DANNY #### [facility] [address] [place] [address] Dr. Madhuri Justice EOS # 0.09 103/ul Normal 0.00-0.70 [facility] Comment on above: Performed By: #### C DANNY #### [facility] [address] [place] [address] Dr. Madhuri Justice EOS% 1.0 % Normal 0.9-7.0 [facility] Comment on above: Performed By: #### C DANNY #### [facility] [address] [place] [address] Dr. Madhuri Justice HCT 37.3 % Normal 36.0-48.0 [facility] Comment on above: Performed By: #### C DANNY #### [facility] [address] [place] [address] Dr. Madhuri Justice HGB 11.0 g/dl Critically low 12.0-16.0 [facility] Comment on above: Performed By: #### C DANNY #### [facility] [address] [place] [address] Dr. Madhuri Justice HYPOCHROMASIA SLIGHT Normal [facility] Comment on above: Performed By: #### C DANNY #### [facility] [address] [place] [address] Dr. Madhuri Justice LYMPHM # 0.86 103/ul Critically low 1.20-3.80 [facility] Comment on above: Performed By: #### C DANNY #### [facility] [address] [place] [address] Dr. Madhuri Justice LYMPHM% 10.0 % Critically low 20.5-60.0 [facility] Comment on above: Performed By: #### C DANNY #### [facility] [address] [place] [address] Dr. Madhuri Justice MCH 23.9 pg Critically low 26.7-34.0 [facility] Comment on above: Performed By: #### C DANNY #### [facility] [address] [place] [address] Dr. Madhuri Justice MCHC 29.5 g/dl Critically low 29.9-35.2 [facility] Comment on above: Performed By: #### C DANNY #### [facility] [address] [place] [address] Dr. Madhuri Justice MCV 81.1 fL Normal 81.0-99.0 [facility] Comment on above: Performed By: #### C DANNY #### [facility] [address] [place] [address] Dr. Madhuri Justice METAMYELOCYTE # Normal [facility] Comment on above: Performed By: #### C DANNY #### [facility] [address] [place] [address] Dr. Madhuri Justice METAMYELOCYTE % Normal [facility] Comment on above: Performed By: #### C DANNY #### [facility] [address] [place] [address] Dr. Madhuri Justice MONOM# 0.52 103/ul Normal 0.30-0.80 [facility] Comment on above: Performed By: #### C DANNY #### [facility] [address] [place] [address] Dr. Madhuri Justice MONOM% 6.0 % Normal 1.7-12.0 [facility] Comment on above: Performed By: #### C DANNY #### [facility] [address] [place] [address] Dr. Madhuri Justice MPV 9.8 fL Normal 9.5-13.5 [facility] Comment on above: Performed By: #### C DANNY #### [facility] [address] [address] [address] Madhuri Justice MYELOCYTE # Normal [facility] Comment on above: Performed By: #### C DANNY #### [facility] [address] [place] [address] Dr. Madhuri Justice MYELOCYTE % Normal [facility] Comment on above: Performed By: #### C DANNY #### [facility] [address] [address] [address] Madhuri Justice NRBC Normal [facility] Comment on above: Performed By: #### C DANNY #### [facility] [address] [address] [address] Madhuri Justice PLT 318 103/ul Normal 150-450 [facility] Comment on above: Performed By: #### C DANNY #### [facility] [address] [place] [address] Dr. Madhuri Justice RBC 4.60 106/ul Normal 4.20-5.40 [facility] Comment on above: Performed By: #### C DANNY #### [facility] [address] [place] [address] Dr. Madhuri Justice RDW 16.4 % Critically high 11.0-15.0 [facility] Comment on above: Performed By: #### C DANNY #### [facility] [address] [place] [address] Dr. Madhuri Justice SEG # 6.97 103/ul Critically high 1.40-6.50 [facility] Comment on above: Performed By: #### C DANNY #### [facility] [address] [place] [address] Dr. Madhuri Justice SEG % 81.0 % Critically high 43.0-75.0 [facility] Comment on above: Performed By: #### C DANNY #### [facility] [address] [place] [address] Dr. Madhuri Justice WBC 8.6 103/ul Normal 4.0-11.0 [facility] Comment on above: Performed By: #### C DANNY #### [facility] [address] [place] [address] ABD/PELV W CONon [...] by: CLEMENTINA GANDHI Date: 2021-10-26 18:59 Normal [facility] LACTATE/LACTIC ACIDon 2021 Lactate [Moles/Vol] 0.6 mmol/L Critically low 0.7-2.0 [facility] Comment on above: Performed By: #### L ACT #### [facility] [address] [address] [address] Madhuri Justice LIPASEon 10-26-2021 Lipase [Catalytic activity/Vol] 70.0 U/L Normal 23.0-300.0 [facility] Comment on above: Performed By: #### L ACT #### [facility] [address] [place] [address] Dr. Madhuri Justice PROF 14(COMP METB)on 022 Albumin [Mass/Vol] 3.5 g/dL Normal 3.5-5.0 [facility] Comment on above: Performed By: #### L ACT #### [facility] [address] [address] [address] Madhuri Justice Albumin/Globulin [Mass ratio] 0.9 {ratio} Normal [facility] Comment on above: Performed By: #### L ACT #### [facility] [address] [place] [address] Dr. Madhuri Justice ALP [Catalytic activity/Vol] 119 U/L Normal 38-126 [facility] Comment on above: Performed By: #### L ACT #### [facility] [address] [place] [address] Dr. Madhuri Justice ALT [Catalytic activity/Vol] 13 U/L Normal 9-52 [facility] Comment on above: Performed By: #### L ACT #### [facility] [address] [place] [address] Dr. Madhuri Justice Anion gap [Moles/Vol] 10.7 mmol/L Normal [facility] Comment on above: Performed By: #### L ACT #### [facility] [address] [place] [address] Dr. Madhuri Justice AST [Catalytic activity/Vol] 15 U/L Normal 14-36 [facility] Comment on above: Performed By: #### L ACT #### [facility] [address] [place] [address] Dr. Madhuri Justice Bilirubin [Mass/Vol] 0.5 mg/dL Normal 0.2-1.3 [facility] Comment on above: Performed By: #### L ACT #### [facility] [address] [place] [address] Dr. Madhuri Justice Calcium [Mass/Vol] 9.5 mg/dL Normal 8.4-10.2 [facility] Comment on above: Performed By: #### L ACT #### [facility] [address] [place] [address] Dr. Madhuri Justice Chloride [Moles/Vol] 104 mmol/L Normal 98-107 [facility] Comment on above: Performed By: #### L ACT #### [facility] [address] [address] [address] Madhuri Justice CO2 [Moles/Vol] 28.0 mmol/L Normal 22.0-30.0 [facility] Comment on above: Performed By: #### L ACT #### [facility] [address] [address] [address] Madhuri Justice Creatinine [Mass/Vol] 0.85 mg/dL Normal 0.52-1.04 [facility] Comment on above: Performed By: #### L ACT #### [facility] [address] [place] [address] Dr. Madhuri Justice EGFR-AF MEXICAN >60 Normal >=60 [facility] Comment on above: Performed By: #### L ACT #### [facility] [address] [address] [address] Madhuri Justice EGFR-NON AF MEXICAN >60 Normal >=60 [facility] Comment on above: Performed By: #### L ACT #### [facility] [address] [address] [address] Madhuri Justice Globulin (S) [Mass/Vol] 4.1 g/dL Normal [facility] Comment on above: Performed By: #### L ACT #### [facility] [address] [address] [address] Madhuri Justice Glucose [Mass/Vol] 116 mg/dL Critically high 74-106 [facility] Comment on above: Performed By: #### L ACT #### [facility] [address] [address] [address] Madhuri Justice Potassium [Moles/Vol] 3.7 mmol/L Normal 3.4-5.0 [facility] Comment on above: Performed By: #### L ACT #### [facility] [address] [address] [address] Madhuri Justice Protein [Mass/Vol] 7.6 g/dL Normal 6.1-8.2 [facility] Comment on above: Performed By: #### L ACT #### [facility] [address] [address] [address] Madhuri Justice Sodium [Moles/Vol] 139 mmol/L Normal 137-145 [facility] Comment on above: Performed By: #### L ACT #### [facility] [address] [place] [address] Dr. Madhuri Justice Urea nitrogen [Mass/Vol] 16.0 mg/dL Normal 7.0-17.0 [facility] Comment on above: Performed By: #### L ACT #### [facility] [address] [address] [address] Madhuri Justice Urea nitrogen/Creatinine [Mass ratio] 18.8 mg/mg Normal [facility] Comment on above: Performed By: #### L ACT #### [facility] [address] [address] [address] Madhuri Justice CBCon 02-08-2020 Erythrocyte distribution width (RBC) [Ratio] 16.9 % High 11.5 - 14.5 [facility] Comment on above: Performed By: #### C BC #### [address] [address] Hematocrit (Bld) [Volume fraction] 40.7 % Normal 36.0 - 46.0 [facility] Comment on above: Performed By: #### C BC #### [address] [address] Hemoglobin (Bld) [Mass/Vol] 11.8 g/dL Low 12.0 - 16.0 [facility] Comment on above: Performed By: #### C BC #### [address] [address] MCHC (RBC) [Mass/Vol] 29.0 g/dL Low 32.0 - 36.0 [facility] Comment on above: Performed By: #### C BC #### [address] [address] MCV (RBC) [Entitic vol] 81 fL Normal 80 - 100 [facility] Comment on above: Performed By: #### C BC #### [address] [address] Platelets (Bld) [#/Vol] 296 10*3/uL Normal 150 - 450 [facility] Comment on above: Performed By: #### C BC #### [address] [address] RBC (Bld) [#/Vol] 5.01 x10E12/L Normal 4.00 - 5.20 [facility] Comment on above: Performed By: #### C BC #### [address] [address] WBC (Bld) [#/Vol] 7.0 10*3/uL Normal 4.4 - 11.3 [facility] Comment on above: Performed By: #### C BC #### [address] [address] CREATININEon 02-08-2020 Creatinine [Mass/Vol] mg/dL Normal >60 [facility] Comment on above: Result Comment: CALC ULATIONS OF ESTIMATED GFR ARE PERFORMED USING THE MDRD STUDY EQUATION FOR THE IDMS-TRACEABLE CREATININE METHODS. CLIN CHEM 2007;53:766-72 Performed By: #### C REAT #### [address] [address] Creatinine [Mass/Vol] 0.85 mg/dL Normal 0.50 - 1.05 [facility] Comment on above: Performed By: #### C REAT #### [address] [address] ELECTROLYTE PANELon 02-08-20 20 Anion gap [Moles/Vol] 12 mmol/L Normal 10 - 20 [facility] Comment on above: Performed By: #### E LECT #### [address] [address] Chloride [Moles/Vol] 104 mmol/L Normal 98 - 107 [facility] Comment on above: Performed By: #### E LECT #### [address] [address] HCO3 (Bld) [Moles/Vol] 29 mmol/L Normal 21 - 32 [facility] Comment on above: Performed By: #### E LECT #### [address] [address] Potassium [Moles/Vol] 3.9 mmol/L Normal 3.5 - 5.3 [facility] Comment on above: Performed By: #### E LECT #### [address] [address] Sodium [Moles/Vol] 141 mmol/L Normal 136 - 145 [facility] Comment on above: Performed By: #### E LECT #### [address] [address] UREA NITROGENon 02-08-2020 Urea nitrogen [Mass/Vol] 18 mg/dL Normal 6 - 23 [facility] Comment on above: Performed By: #### U GUSTAVO #### [address] [address] Creatinineon 11-24-2018 Creatinine mass conc 0.83 mg/dL Normal 0.50-1.05 [facility] Comment on above: Performed By: #### 1 [id number] #### [facility] [address] [place] [address] GFR/1.73 sq M.predicted MDRD vol rate/area mL/min/{1.73_m2} Normal [facility] Comment on above: Result Comment: Inte rpretation for Chronic Kidney Disease: Stages 1&2 >60 Healthy or potential kidney damage. Mild decrease of GFR. Stage 3 30-59 Moderate decrease of GFR. Stage 4 15-29 Severe decrease of GFR. Stage 5 <15 Kidney failure or on dialysis. Performed By: #### 1 [id number] #### [facility] [address] [place] [address] Electrolyte Panelon 11-24-19 19 Anion gap molar conc 13 mmol/L Normal 10-20 [facility] Comment on above: Performed By: #### 1 [id number] #### [facility] [address] [place] [address] Chloride molar conc 102 mmol/L Normal 98-107 [facility] Comment on above: Performed By: #### 1 [id number] #### [facility] [address] [place] [address] HCO3 molar conc (Bld) 28 mmol/L Normal 21-32 [facility] Comment on above: Performed By: #### 1 [id number] #### [facility] [address] [place] [address] Potassium molar conc 4.0 mmol/L Normal 3.5-5.1 [facility] Comment on above: Performed By: #### 1 [id number] #### [facility] [address] [place] [address] Sodium molar conc 139 mmol/L Normal 136-145 [facility] Comment on above: Performed By: #### 1 [id number] #### [facility] [address] [place] [address] Urea Nitrogenon 11-24-2018 Urea nitrogen mass conc 17 mg/dL Normal 6-23 [facility] Comment on above: Performed By: #### 1 [id number] #### [facility] [address] [place] [address] Creatinineon 11-18-2018 Creatinine mass conc 0.84 mg/dL Normal 0.50-1.05 [facility] Comment on above: Performed By: #### 1 [id number] #### [facility] [address] [place] [address] GFR/1.73 sq M.predicted MDRD vol rate/area mL/min/{1.73_m2} Normal [facility] Comment on above: Result Comment: Inte rpretation for Chronic Kidney Disease: Stages 1&2 >60 Healthy or potential kidney damage. Mild decrease of GFR. Stage 3 30-59 Moderate decrease of GFR. Stage 4 15-29 Severe decrease of GFR. Stage 5 <15 Kidney failure or on dialysis. Performed By: #### 1 [id number] #### [facility] [address] [place] [address] Electrolyte Panelon 11-18-19 19 Anion gap molar conc 10 mmol/L Normal 10-20 [facility] Comment on above: Performed By: #### 1 [id number] #### [facility] [address] [place] [address] Chloride molar conc 104 mmol/L Normal 98-107 [facility] Comment on above: Performed By: #### 1 [id number] #### [facility] [address] [place] [address] HCO3 molar conc (Bld) 30 mmol/L Normal 21-32 [facility] Comment on above: Performed By: #### 1 [id number] #### [facility] [address] [place] [address] Potassium molar conc 4.0 mmol/L Normal 3.5-5.1 [facility] Comment on above: Performed By: #### 1 [id number] #### [facility] [address] [place] [address] Sodium molar conc 140 mmol/L Normal 136-145 [facility] Comment on above: Performed By: #### 1 [id number] #### [facility] [address] [place] [address] Urea Nitrogenon 11-18-2018 Urea nitrogen mass conc 15 mg/dL Normal 6-23 [facility] Comment on above: Performed By: #### 1 [id number] #### [facility] [address] [place] [address] CBCon 2018 Erythrocyte distribution width Ratio (RBC) 16.3 % High 12.0-15.4 [facility] Comment on above: Performed By: #### 2 [id number] #### [facility] [address] [place] [address] Hematocrit Volume Fraction (Bld) 37.4 % Normal 36.5-46.6 [facility] Comment on above: Performed By: #### 2 [id number] #### [facility] [address] [place] [address] Hemoglobin mass conc (Bld) 11.0 g/dL Low 11.8-15.3 [facility] Comment on above: Performed By: #### 2 [id number] #### [facility] [address] [place] [address] MCH Entitic mass (RBC) 24.3 pg Low 27.5-33.0 [facility] Comment on above: Performed By: #### 2 [id number] #### [facility] [address] [place] [address] MCHC mass conc (RBC) 29.4 g/dL Low 30.1-35.0 [facility] Comment on above: Performed By: #### 2 [id number] #### [facility] [address] [place] [address] MCV Entitic volume (RBC) 82.6 fL Low 85.4-100.0 [facility] Comment on above: Performed By: #### 2 [id number] #### [facility] [address] [place] [address] NRBC Absolute 0.00 10*3/uL Normal [facility] Comment on above: Performed By: #### 2 [id number] #### [facility] [address] [place] [address] NRBC Automated 0.0 /100{WBCs} Normal [facility] Comment on above: Performed By: #### 2 [id number] #### [facility] [address] [place] [address] Platelet mean volume Entitic volume (Bld) 10.8 fL Normal 9.9-12.1 [facility] Comment on above: Performed By: #### 2 [id number] #### [facility] [address] [place] [address] Platelets #/vol (Bld) 314 10*3/uL Normal 155-404 [facility] Comment on above: Performed By: #### 2 [id number] #### [facility] [address] [place] [address] RBC #/vol (Bld) 4.53 10*6/uL Normal 3.85-5.10 [facility] Comment on above: Performed By: #### 2 [id number] #### [facility] [address] [place] [address] RDW SD 49.1 fL High 39.3-48.6 [facility] Comment on above: Performed By: #### 2 [id number] #### [facility] [address] [place] [address] WBC #/vol (Bld) 7.9 10*3/uL Normal 4.4-9.9 [facility] Comment on above: Performed By: #### 2 [id number] #### [facility] [address] [place] [address] Creatinineon 2018 Creatinine mass conc 0.85 mg/dL Normal 0.50-1.05 [facility] Comment on above: Performed By: #### 1 [id number] #### [facility] [address] [place] [address] GFR/1.73 sq M.predicted MDRD vol rate/area mL/min/{1.73_m2} Normal [facility] Comment on above: Result Comment: Inte rpretation for Chronic Kidney Disease: Stages 1&2 >60 Healthy or potential kidney damage. Mild decrease of GFR. Stage 3 30-59 Moderate decrease of GFR. Stage 4 15-29 Severe decrease of GFR. Stage 5 <15 Kidney failure or on dialysis. Performed By: #### 1 [id number] #### [facility] [address] [place] [address] Electrolyte Panelon 05-25-20 18 Anion gap molar conc 13 mmol/L Normal 10-20 [facility] Comment on above: Performed By: #### 1 [id number] #### [facility] [address] [place] [address] Chloride molar conc 102 mmol/L Normal 98-107 [facility] Comment on above: Performed By: #### 1 [id number] #### [facility] [address] [place] [address] HCO3 molar conc (Bld) 28 mmol/L Normal 21-32 [facility] Comment on above: Performed By: #### 1 [id number] #### [facility] [address] [place] [address] Potassium molar conc 3.9 mmol/L Normal 3.5-5.1 [facility] Comment on above: Performed By: #### 1 [id number] #### [facility] [address] [place] [address] Sodium molar conc 139 mmol/L Normal 136-145 [facility] Comment on above: Performed By: #### 1 [id number] #### [facility] [address] [place] [address] Urea Nitrogenon 2018 Urea nitrogen mass conc 15 mg/dL Normal 6-23 [facility] Comment on above: Performed By: #### 1 [id number] #### [facility] [address] [place] [address] Vital Signs Date Time Vital Sign Value Performing Clinician Facility 11-25-2024 14:53-0500 Body height 160 cm Charmaine Pinedo MD Work Phone: [facility] 11-25-2024 14:53-0500 Body mass index (BMI) [Ratio] 32.59 kg/m2 Charmaine Pinedo MD Work Phone: [facility] 11-25-2024 14:53-0500 Body weight 83.46 kg Charmaine Pinedo MD Work Phone: [facility] 11-25-2024 14:53-0500 Diastolic blood pressure 62 mm[Hg] Charmaine Pinedo MD Work Phone: [facility] 11-25-2024 14:53-0500 Heart rate 78 /min Charmaine Pinedo MD Work Phone: [facility] 11-25-2024 14:53-0500 Systolic blood pressure 130 mm[Hg] Charmaine Pinedo MD Work Phone: [facility] 11-02-2024 10:47-0500 Body height 160 cm Porfirio Rubio DPM Work Phone: [facility] 11-02-2024 10:47-0500 Body mass index (BMI) [Ratio] 31.89 kg/m2 Porfirio Rubio DPM Work Phone: [facility] 11-02-2024 10:47-0500 Body weight 81.65 kg Porfirio Rubio DPM Work Phone: [facility] 09-27-2024 11:25-0500 Body height 160 cm Raghav Mitchell DO Work Phone: [facility] 09-27-2024 11:25-0500 Body mass index (BMI) [Ratio] 35.25 kg/m2 Raghav Mitchell DO Work Phone: [facility] 09-27-2024 11:25-0500 Body temperature 97.11 [degF] Raghav Mitchell DO Work Phone: [facility] 09-27-2024 11:25-0500 Body weight 90.27 kg Raghav Mtichell DO Work Phone: [facility] 09-27-2024 11:25-0500 Diastolic blood pressure 68 mm[Hg] Raghav Mitchell DO Work Phone: [facility] 09-27-2024 11:25-0500 Heart rate 64 /min Raghav Mitchell DO Work Phone: [facility] 09-27-2024 11:25-0500 SaO2% (BldA) [Mass fraction] 99 % Raghav Mitchell DO Work Phone: [facility] 09-27-2024 11:25-0500 Systolic blood pressure 136 mm[Hg] Raghav Mitchell DO Work Phone: [facility] 09-26-2024 14:45-0500 Body height 160 cm Chloe Mercado PA Work Phone: [facility] 09-26-2024 14:45-0500 Body mass index (BMI) [Ratio] 32.77 kg/m2 Chloe Mercado PA Work Phone: [facility] 09-26-2024 14:45-0500 Body weight 83.92 kg Chloe Mercado PA Work Phone: [facility] 07-27-2024 13:29-0400 Body height 160 cm Porfirio Rubio DPM Work Phone: [facility] 07-27-2024 13:29-0400 Body mass index (BMI) [Ratio] 34.72 kg/m2 Porfirio Rubio DPM Work Phone: [facility] 07-27-2024 13:29-0400 Body weight 88.91 kg Porfirio Rubio DPM Work Phone: [facility] 05-12-2024 16:40-0400 Body height 160 cm Raghav Stephen DO Work Phone: [facility] 05-12-2024 16:40-0400 Body mass index (BMI) [Ratio] 34.72 kg/m2 Raghav Yinger DO Work Phone: [facility] 05-12-2024 16:40-0400 Body temperature 98.01 [degF] Raghav Yinger DO Work Phone: [facility] 05-12-2024 16:40-0400 Body weight 88.91 kg Raghav Yinger DO Work Phone: [facility] 05-12-2024 16:40-0400 Diastolic blood pressure 76 mm[Hg] Raghav Yinger DO Work Phone: [facility] 05-12-2024 16:40-0400 Heart rate 68 /min Raghav Yinger DO Work Phone: [facility] 05-12-2024 16:40-0400 Systolic blood pressure 132 mm[Hg] Raghav Yinger DO Work Phone: [facility] 04-21-2024 13:40-0400 Body height 160.02 cm DO Raghav Yinger Work Phone: [facility] 04-21-2024 13:40-0400 Body temperature 97.7 [degF] DO Raghav Yinger Work Phone: [facility] 04-21-2024 13:40-0400 Body weight 81.64 kg DO Raghav Yinger Work Phone: [facility] 04-21-2024 13:40-0400 Diastolic blood pressure 81 mm[Hg] DO Raghav Yinger Work Phone: [facility] 04-21-2024 13:40-0400 Heart rate 69 /min DO Raghav Yinger Work Phone: [facility] 04-21-2024 13:40-0400 Respiratory rate 20 /min DO Raghav Stephen Work Phone: [facility] 04-21-2024 13:40-0400 SaO2% (BldA) [Mass fraction] 98 % DO Raghav Mitchell Work Phone: [facility] 04-21-2024 13:40-0400 Systolic blood pressure 178 mm[Hg] DO Raghav Mitchell Work Phone: [facility] 04-13-2024 11:15-0400 Body height 160 cm Charmaine Pinedo MD Work Phone: [facility] 04-13-2024 11:15-0400 Body mass index (BMI) [Ratio] 34.86 kg/m2 Charmaine Pinedo MD Work Phone: [facility] 04-13-2024 11:15-0400 Body weight 89.27 kg Charmaine Pinedo MD Work Phone: [facility] 04-13-2024 11:15-0400 Diastolic blood pressure 70 mm[Hg] Charmaine Pinedo MD Work Phone: [facility] 04-13-2024 11:15-0400 Heart rate 65 /min Charmaine Pinedo MD Work Phone: [facility] 04-13-2024 11:15-0400 Systolic blood pressure 118 mm[Hg] Charmaine Pinedo MD Work Phone: [facility] 09-18-2023 10:31-0500 Body height 160 cm Charmaine Pinedo MD Work Phone: [facility] 09-18-2023 10:31-0500 Body mass index (BMI) [Ratio] 36.31 kg/m2 Charmaine Pinedo MD Work Phone: [facility] 09-18-2023 10:31-0500 Body weight 92.99 kg Charmaine iPnedo MD Work Phone: [facility] 09-18-2023 10:31-0500 Diastolic blood pressure 72 mm[Hg] Charmaine Pinedo MD Work Phone: [facility] 09-18-2023 10:31-0500 Heart rate 70 /min Charmaine Pinedo MD Work Phone: [facility] 09-18-2023 10:31-0500 Systolic blood pressure 122 mm[Hg] Charmaine Pinedo MD Work Phone: [facility] 09-01-2023 10:54-0500 Diastolic blood pressure 65 mm[Hg] DO Raghav Mitchell Work Phone: [facility] 09-01-2023 10:54-0500 Heart rate 65 /min DO Raghav Mitchell Work Phone: [facility] 09-01-2023 10:54-0500 Respiratory rate 18 /min DO Raghav Mitchell Work Phone: [facility] 09-01-2023 10:54-0500 SaO2% (BldA) [Mass fraction] 95 % DO Raghav Stephen Work Phone: [facility] 09-01-2023 10:54-0500 Systolic blood pressure 149 mm[Hg] DO Raghav Stephen Work Phone: [facility] 09-01-2023 09:33-0500 Body height 160.02 cm DO Raghav Stephen Work Phone: [facility] 09-01-2023 09:33-0500 Body weight 92 kg DO Raghav Stephen Work Phone: [facility] 09-01-2023 09:31-0500 Body temperature 97.4 [degF] DO Raghav Mitchell Work Phone: [facility] 08-18-2023 08:38-0500 Diastolic blood pressure 82 mm[Hg] Charmaine Pinedo MD Work Phone: [facility] 08-18-2023 08:38-0500 Systolic blood pressure 138 mm[Hg] Charmaine Pinedo MD Work Phone: [facility] 08-18-2023 08:32-0500 Body height 160 cm Charmaine Pinedo MD Work Phone: [facility] 08-18-2023 08:32-0500 Body mass index (BMI) [Ratio] 36.31 kg/m2 Charmaine Pinedo MD Work Phone: [facility] 08-18-2023 08:32-0500 Body weight 92.99 kg Charmaine Pinedo MD Work Phone: [facility] 08-18-2023 08:32-0500 Heart rate 60 /min Charmaine Pinedo MD Work Phone: [facility] 07-27-2023 16:00-0400 Diastolic blood pressure 72 mm[Hg] DO Raghav Mitchell Work Phone: [facility] 07-27-2023 16:00-0400 Heart rate 77 /min DO Raghav Mitchell Work Phone: [facility] 07-27-2023 16:00-0400 Respiratory rate 23 /min DO Raghav Mitchell Work Phone: [facility] 07-27-2023 16:00-0400 SaO2% (BldA) [Mass fraction] 97 % DO Raghav Mitchell Work Phone: [facility] 07-27-2023 16:00-0400 Systolic blood pressure 160 mm[Hg] DO Raghav Mitchell Work Phone: [facility] 07-27-2023 12:05-0400 Body height 160.02 cm DO Raghav Mitchell Work Phone: [facility] 07-27-2023 12:05-0400 Body temperature 97.5 [degF] DO Raghav Mitchell Work Phone: [facility] 07-27-2023 12:05-0400 Body weight 94.5 kg DO Raghav Mitchell Work Phone: [facility] 04-16-2023 10:48-0400 Body height 162.56 cm Raghav Mitchell Work Phone: [facility] [address] DO Work Phone: 04-16-2023 10:48-0400 Body mass index (BMI) [Ratio] 34.87 kg/m2 Raghav Mitchell Work Phone: [facility] [address] DO Work Phone: 04-16-2023 10:48-0400 Body surface area Derived from formula 1.97 m2 Raghav Mitchell Work Phone: [facility] [address] DO Work Phone: 04-16-2023 10:48-0400 Body weight 92.14 kg Raghav Mitchell Work Phone: [facility] [address] DO Work Phone: 04-16-2023 10:48-0400 Diastolic blood pressure 78 mm[Hg] Raghav Mitchell Work Phone: [facility] DO Work Phone: 04-16-2023 10:48-0400 Heart rate 64 /min Raghav Mitchell Work Phone: [facility] DO Work Phone: 04-16-2023 10:48-0400 Systolic blood pressure 138 mm[Hg] Raghav Mitchell Work Phone: [facility] DO Work Phone: 03-19-2023 22:00-0400 Diastolic blood pressure 67 mm[Hg] DO Raghav Mitchell Work Phone: [facility] 03-19-2023 22:00-0400 Systolic blood pressure 146 mm[Hg] DO Raghav Mitchell Work Phone: [facility] 03-19-2023 21:08-0400 Heart rate 63 /min DO Raghav Mitchell Work Phone: [facility] 03-19-2023 21:04-0400 Respiratory rate 18 /min DO Raghav Mitchell Work Phone: [facility] 03-19-2023 21:04-0400 SaO2% (BldA) [Mass fraction] 98 % DO Raghav Mitchell Work Phone: [facility] 03-19-2023 20:10-0400 Body height 162.56 cm DO Raghav Mitchell Work Phone: [facility] 03-19-2023 20:10-0400 Body temperature 97.8 [degF] DO Raghav Mitchell Work Phone: [facility] 03-19-2023 20:10-0400 Body weight 81.64 kg DO Raghav Mitchell Work Phone: [facility] 10-14-2022 12:07-0500 Diastolic blood pressure 68 mm[Hg] Raghav Mitchell Work Phone: [facility] DO Work Phone: 10-14-2022 12:07-0500 Systolic blood pressure 128 mm[Hg] Raghav Mitchell Work Phone: [facility] DO Work Phone: 10-14-2022 11:53-0500 Body height 162.56 cm Raghav Mitchell Work Phone: [facility] DO Work Phone: 10-14-2022 11:53-0500 Body mass index (BMI) [Ratio] 31.93 kg/m2 Raghav Mitchell Work Phone: [facility] DO Work Phone: 10-14-2022 11:53-0500 Body surface area Derived from formula 1.9 m2 Raghav Mitchell Work Phone: [facility] DO Work Phone: 10-14-2022 11:53-0500 Body weight 84.37 kg Raghav Mitchell Work Phone: [facility] [employer] [address] DO Work Phone: 10-14-2022 11:53-0500 Diastolic blood pressure 72 mm[Hg] Raghav Mitchell Work Phone: [facility] DO Work Phone: 10-14-2022 11:53-0500 Heart rate 65 /min Raghav Irvin Stephen Work Phone: [facility] [employer] [address] DO Work Phone: 10-14-2022 11:53-0500 Systolic blood pressure 144 mm[Hg] Raghav Mitchell Work Phone: [facility] [employer] [address] DO Work Phone: 07-24-2022 15:30-0400 Body height 165.1 cm Isrrael Markus Other [facility] [employer] Other 07-24-2022 15:30-0400 Body mass index (BMI) [Ratio] 28.29 kg/m2 Isrrael Barnettormack Other [facility] [employer] Other 07-24-2022 15:30-0400 Body weight 77.11 kg Isrrael Barnettormack Other [facility] [employer] Other 06-06-2022 09:47-0400 Diastolic blood pressure 66 mm[Hg] DO Raghav Mitchell Work Phone: [facility] 06-06-2022 09:47-0400 Heart rate 71 /min DO Raghav Mitchell Work Phone: [facility] 06-06-2022 09:47-0400 Respiratory rate 20 /min DO Raghav Mitchell Work Phone: [facility] 06-06-2022 09:47-0400 SaO2% (BldA) [Mass fraction] 97 % DO Raghav Mitchell Work Phone: [facility] 06-06-2022 09:47-0400 Systolic blood pressure 145 mm[Hg] DO Raghav Mitchell Work Phone: [facility] 06-06-2022 05:51-0400 Body height 162.56 cm DO Raghav Mitchell Work Phone: [facility] 06-06-2022 05:51-0400 Body temperature 97.7 [degF] DO Raghav Mitchell Work Phone: [facility] 06-06-2022 05:51-0400 Body weight 170 kg DO Raghav Mitchell Work Phone: [facility] 03-04-2022 15:49-0400 Body height 162.56 cm Raghav Mitchell Work Phone: [facility] DO Work Phone: 03-04-2022 15:49-0400 Body mass index (BMI) [Ratio] 31.58 kg/m2 Raghav Mitchell Work Phone: [facility] DO Work Phone: 03-04-2022 15:49-0400 Body surface area Derived from formula 1.89 m2 Raghav Mitchell Work Phone: [facility] DO Work Phone: 03-04-2022 15:49-0400 Body weight 83.46 kg Raghav Mitchell Work Phone: [facility] DO Work Phone: 03-04-2022 15:49-0400 Diastolic blood pressure 62 mm[Hg] Raghav Mitchell Work Phone: [facility] DO Work Phone: 03-04-2022 15:49-0400 Heart rate 69 /min Raghav Mitchell Work Phone: [facility] DO Work Phone: 03-04-2022 15:49-0400 Systolic blood pressure 112 mm[Hg] Raghav Mitchell Work Phone: [facility] DO Work Phone: Encounters Encounter Date Encounter Type Care Provider Facility Start: 11-25-2024 End: 11-25-2024 Office outpatient visit 25 minutes Charmaine Pinedo MD Work Phone: [facility] Comment on above: Paroxysmal atrial fi brillation (Multi) (Primary Dx); Essential hypertension, benign; Anticoagulated; Never smoked any substance; BMI 32.0-32.9,adult; High risk medication use; Iron deficiency anemia due to chronic blood loss; Obesity, Class I, BMI 30-34.9; Diverticulitis Start: 11-25-2024 End: 11-25-2024 ambulatory [facility] Start: 11-02-2024 End: 11-02-2024 Bamboo flowsheet Porfirio Rubio DPM Work Phone: [facility] Start: 11-02-2024 End: 11-02-2024 Bamboo flowsheet Porfirio Rubio DPM Work Phone: [facility] Start: 11-02-2024 End: 11-02-2024 Patient encounter procedure Porfirio Rubio DPM Work Phone: [facility] Comment on above: Onychomycosis (Prima ry Dx); Onychodystrophy; Pain in both feet Start: 11-02-2024 End: 11-02-2024 ambulatory PORFIRIO RUBIO Not Available Start: 10-25-2024 End: 10-25-2024 Telephone encounter Robel Worthington [employer] [facility] Start: 10-10-2024 End: 10-11-2024 Telephone encounter Marcela Cowan PT [facility] Comment on above: CX PT 10/17 - 10/26/24 Start: 10-03-2024 End: 10-03-2024 Telephone encounter Marcela Cowan PT [facility] Comment on above: Cx / Rs PT needed Start: 09-27-2024 End: 09-27-2024 Office outpatient visit 25 minutes Raghav Mitchell DO Work Phone: [facility] Comment on above: 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); Diverticulitis Start: 09-27-2024 End: 09-27-2024 ambulatory RAGHAV MITCHELL Not Available Start: 09-26-2024 End: 09-26-2024 ambulatory CHLOE MERCADO Not Available Start: 09-26-2024 End: 09-26-2024 Office outpatient new 45 minutes Chloe Mercado PA Work Phone: [facility] Comment on above: Acute hip pain, left (Primary Dx); Left leg swelling; Trochanteric bursitis of left hip; Pain of left calf Start: 09-26-2024 End: 09-26-2024 ambulatory CHLOE MERCADO Not Available Start: 09-26-2024 End: 09-26-2024 Bamboo flowsheet Chloe Mercado PA Work Phone: [facility] Start: 09-26-2024 End: 09-26-2024 Bamboo flowsheet Chloe Mercado PA Work Phone: [facility] Start: 07-27-2024 End: 07-27-2024 Patient encounter procedure Porfirio Rubio DPM Work Phone: [facility] Comment on above: Onychomycosis (Prima ry Dx); Onychodystrophy; Pain in both feet Start: 07-27-2024 End: 07-27-2024 ambulatory PORFIRIO RUBIO Not Available Start: 05-12-2024 End: 05-12-2024 Office outpatient visit 25 minutes Raghav Mitchell DO Work Phone: [facility] Comment on above: Other thrombophilia (CMS/HCC); Stricture of artery (CMS/HCC); Other forms of angina pectoris (CMS/HCC); Angina pectoris, unspecified (CMS/HCC) Start: 05-12-2024 End: 05-12-2024 ambulatory RAGHAV MITCHELL Not Available Start: 04-26-2024 End: 04-26-2024 ambulatory PORFIRIO RUBIO Not Available Start: 04-21-2024 End: 04-21-2024 Emergency department patient visit DO Raghav Mitchell Work Phone: [facility] Work Phone: Start: 04-13-2024 End: 04-13-2024 Office outpatient visit 25 minutes Charmaine Pinedo MD Work Phone: [facility] Comment on above: Paroxysmal atrial fi brillation (Multi) (Primary Dx); Essential hypertension, benign; Right bundle branch block (RBBB) on electrocardiography; Anticoagulated; Never smoked any substance; BMI 34.0-34.9,adult; Microcytic anemia; High risk medication use; Diverticulitis Start: 04-13-2024 End: 04-13-2024 ambulatory [facility] Start: 02-01-2024 End: 02-01-2024 ambulatory RAGHAV MITCHELL Not Available Start: 01-26-2024 End: 01-27-2024 ambulatory [facility] Start: 01-20-2024 End: 01-20-2024 ambulatory PORFIRIO RUBIO Not Available Start: 12-09-2023 End: 12-09-2023 ambulatory SUSAN MCMAHAN Not Available Start: 12-01-2023 End: 12-01-2023 ambulatory HOLLY BACON Not Available Start: 11-05-2023 End: 11-05-2023 ambulatory ELTON OSCAR Not Available Start: 09-18-2023 End: 09-18-2023 Office outpatient visit 25 minutes Charmaine Pinedo MD Work Phone: [facility] Comment on above: Paroxysmal atrial fi brillation (CMS/HCC) (Primary Dx); Essential hypertension, benign; Never smoked any substance; High risk medication use; Class II obesity; Premature atrial contractions Start: 09-01-2023 End: 09-01-2023 Emergency department patient visit Natalie Brian Facility:[facility] Start: 09-01-2023 End: 09-01-2023 Emergency department patient visit DO Raghav Mitchell Work Phone: [facility] Work Phone: Start: 08-18-2023 End: 08-18-2023 Office outpatient visit 10 minutes Charmaine Pinedo MD Work Phone: [facility] Comment on above: Essential hypertensi on, benign Start: 07-27-2023 End: 07-27-2023 Emergency department patient visit Natalie Brian Facility:[facility] Start: 07-27-2023 End: 07-27-2023 Emergency department patient visit DO Raghav Mitchell Work Phone: [facility] Work Phone: Start: 04-16-[address] Charmaine Pinedo Facility: Start: 04-16-2023 Office outpatient vi sit 25 minutes Raghav Mitchell Work Phone: [facility] DO Work Phone: Start: 04-02-2023 Rx Renewal Raghav Mitchell Work Phone: [facility] DO Work Phone: Start: 03-19-2023 End: 03-20-2023 Emergency department patient visit Gonzalo Smith Jr Facility:[facility] Start: 03-19-2023 End: 03-19-2023 Emergency department patient visit DO Raghav Mitchell Work Phone: [facility] Work Phone: Start: 03-19-2023 Rx Renewal Raghav Mitchell Work Phone: [facility] DO Work Phone: Start: 03-15-2023 Rx Renewal Raghav Mitchell [facility] Work Phone: Start: 10-14-2022 Office outpatient vi sit 25 minutes Raghav Mitchell Work Phone: [facility] DO Work Phone: Start: 01-17-[address] Charmaine Pinedo Facility: Start: 10-08-2022 Rx Renewal Raghav Mitchell Work Phone: [facility] DO Work Phone: Start: 10-04-2022 End: 10-05-[address] DOCTOR HARDY Facility:[facility] Start: 09-29-2022 End: 09-29-[address] RAGHAV MITCHELL Facility:[facility] Start: 09-10-2022 Telephone encounter Raghav gomes Work Phone: [facility] DO Work Phone: Start: 09-06-2022 End: 09-06-[address] RAGHAV MITCHELL Facility:[facility] Start: 07-24-2022 End: 07-24-2022 ambulatory Isrrael Aparicio Other [employer] Other Start: 07-24-2022 Office outpatient ne w 45 minutes Isrrael Aparicio [facility] Start: 06-06-2022 End: 06-06-2022 Emergency department patient visit DO Raghav Mitchell Work Phone: [facility] Start: 03-04-2022 Office outpatient vi sit 25 minutes Raghav Mitchell Work Phone: [facility] DO Work Phone: Start: 01-14-2022 End: 01-14-[address] RAGHAV MITCHELL Facility:[facility] Start: 01-10-2022 End: 01-10-2022 ambulatory George Adams Other [employer] Other Start: 01-10-2022 Telephone encounter George Adams [facility] Start: 12-17-2021 AUDIT Raghav Mitchell Work Phone: [facility] DO Work Phone: Start: 12-16-2021 End: 12-17-[address] RAGHAV MICTHELL Facility:[facility] Start: 10-26-2021 End: 10-26-[address] HIRO TOMPKINS Facility:[facility] Start: 08-20-2021 Telephone encounter Raghav gomes Work Phone: [facility] [address] [place] Work Phone: Start: 11-24-2018 Patient encounter procedure JES KEITH Facility:[id number] Start: 11-18-2018 Patient encounter procedure JES KEITH Facility:[id number] Start: 2018 Patient encounter procedure CHARMAINE PINEDO Facility:[id number] Procedures Date Procedure Procedure Detail Performing Clinician Start: 11-25-2024 Ecg routine ecg w/le ast 12 lds w/i&r Charmaine Pinedo MD Work Phone: Start: 09-26-2024 Radex hip unilateral with pelvis 2-3 views Chloe BACA Work Phone: Start: 04-13-2024 Ecg routine ecg w/le ast 12 lds w/i&r Charmaine Pinedo MD Work Phone: Start: 09-18-2023 Ecg routine ecg w/le ast 12 lds w/i&r Charmaine Pinedo MD Work Phone: Start: 09-01-2023 Plain chest X-ray DO Phuong Mitchell Work Phone: Start: 07-27-2023 CT of abdomen and pe lvis without contrast DO Raghav Mitchell Work Phone: Start: 07-27-2023 Plain chest X-ray DO Phuong Mitchell Work Phone: Start: 06-06-2022 CT of abdomen and pe lvis without contrast DO Raghav Mitchell Work Phone: Start: 06-06-2022 Plain chest X-ray DO Pa mitra Mitchell Work Phone: Appendectomy Raghav Mitchell Work Phone: Cataract surgery Raghav sullivan Work Phone: Cholecystectomy Raghav Davenport r Work Phone: Colonoscopy Raghav Mitchell Work Phone: Hysterectomy Raghav Mitchell Work Phone: SARS Antigen (LFIA) DO Raghav Mitchell Work Phone: Surgical procedure Raghav Jordan danielle Work Phone: Plan of Treatment Date Care Activity Detail Author Start: 01-15-2032 DTaP/Tdap/Td Vaccine s (3 - Td or Tdap) DTaP/Tdap/Td Vaccines (3 - Td or Tdap) [facility] Start: 07-14-2025 End: 07-14-2025 Patient encounter procedure 07/14/2025 3:20 PM EDT Office Visit [address] [place] [address] Charmaine Pinedo MD [address] [facility] [address] [place] [address] [facility] Start: 02-01-2025 Medicare Annual Wellness Visit Medicare Annual Wellness Visit (AWV) [facility] Start: 01-31-2025 Medicare Annual Wellness (AWV) Medicare Annual Wellness (AWV) [facility] Start: 11-25-2024 End: 11-25-2025 Basic metabolic 2000 panel - Serum or Plasma Basic Metabolic Panel Lab Routine Paroxysmal atrial fibrillation (Multi) Essential hypertension, benign Anticoagulated Expected: 11/25/2024 (Approximate), Expires: 11/25/2025 [facility] Service Area Work Phone: Comment on above: Expected: 11/25/2024 (Approximate), Expires: 11/25/2025 Start: 11-25-2024 End: 11-25-2025 CBC panel - Blood by Automated count CBC Lab Routine Paroxysmal atrial fibrillation (Multi) Anticoagulated Expected: 11/25/2024 (Approximate), Expires: 11/25/2025 [facility] Work Phone: Comment on above: Expected: 11/25/2024 (Approximate), Expires: 11/25/2025 Start: 11-10-2024 End: 11-10-2024 Patient encounter procedure 11/10/2024 11:00 AM EST Office Visit [address] [place] [address] Charmaine Pinedo MD [facility] [facility], [address] [place] [address] [facility] Start: 11-09-2024 End: 11-09-2024 Clinical Support 11/09/2024 3:45 PM EST Clinical Support [facility] [address] [place] [address] Holly Bacon, [facility] [address] [facility] [place] [address] [facility] Start: 11-02-2024 End: 11-02-2024 Patient encounter procedure [facility] Comment on above: Arrived Start: 10-26-2024 End: 10-26-2024 ambulatory 10/26/2024 5:00 PM EST Treatment [facility] [address] [facility] [address] [place] [address] Marcela Cowan, PT [facility] Start: 10-24-2024 End: 10-24-2024 ambulatory 10/24/2024 5:00 PM EST Treatment [facility] [address] [facility] [address] [place] [address] Marcela Cowan, PT [facility] Start: 10-19-2024 End: 10-19-2024 ambulatory 10/19/2024 4:30 PM EST Treatment [facility] [address] [facility] [address] [place] [address] Marcela Cowan, PT [facility] Start: 10-17-2024 End: 10-17-2024 ambulatory 10/17/2024 6:00 PM EST Evaluation [facility] [address] [place] [address] Marcela Cowan, PT [facility] Start: 10-13-2024 End: 10-13-2024 ambulatory 10/13/2024 12:00 PM EST Treatment [facility] [address] [facility] [address] [place] [address] Naman Arcos, [employer] [facility] Start: 10-11-2024 End: 10-11-2024 ambulatory 10/11/2024 5:00 PM EST Treatment [facility] [address] [place] [address] Naman Arcos, [employer] [facility] Start: 10-05-2024 End: 10-05-2024 ambulatory 10/05/2024 5:00 PM EST Evaluation [facility] [address] [place] [address] Marcela Cowan, PT [facility] Start: 09-27-2024 End: 09-27-2024 Patient encounter procedure 09/27/2024 11:20 AM EST Office Visit [facility] [address] [place] [id number] Raghav Mitchell DO [address] [place] [address] [facility] [address] Start: 09-26-2024 End: 09-26-2024 Patient encounter procedure 09/26/2024 2:45 PM EST Office Visit [facility] [address] [place] [id number] Chloe Mercado, PA [address] [place] [address] Acute hip pain, left (Primary Dx) [facility] Comment on above: Acute hip pain, left (Primary Dx) Start: 05-29-2024 COVID-19 Vaccine ( season) COVID-19 Vaccine ( season) [facility] Start: 05-29-2024 Influenza vaccination Influenza Vacc ine (#1) [facility] Start: 04-21-2024 Computed tomography of abdomen and pelvis with contrast CT abdomen pelvis w con [facility] Start: 04-21-2024 [facility] Start: 04-21-2024 Hepatic function panel [facility] Start: 04-21-2024 [facility] Start: 04-13-2024 End: 04-13-2024 Patient encounter procedure 04/13/2024 11:10 AM EDT Office Visit [place] [address] [facility] [address] [place] [address] Charmaine Pinedo MD [facility] 2, [facility] [address] [place] [address] [facility] Start: 09-29-2023 FUV, Provider: Charmaine Pinedo, Status: Pen, Time: 10:40 AM FUV, Provider: Charmaine Pinedo, Status: Pen, Time: 10:40 AM [facility] Work Phone: Start: 09-29-2023 End: 09-29-2023 Patient encounter procedure 09/29/2023 10:40 AM EST Office Visit [address] [address] Charmaine Pinedo MD [facility] 2, [address] [address] [facility] Start: 05-29-2023 COVID-19 Vaccine ( season) COVID-19 Vaccine ( season) [facility] Start: 05-29-2023 Influenza vaccination Influenza Vacc ine (#1) [facility] Start: 04-16-2023 FUV, Provider: Charmaine Pinedo, Status: Pen, Time: 10:40 AM FUV, Provider: Charmaine Pinedo, Status: Pen, Time: 10:40 AM [facility] DO Work Phone: Start: 03-19-2023 Plain chest X-ray XR chest 2V* [facility] Start: 03-19-2023 XR Chest 2 Views [facility] Start: 10-14-2022 FUV, Provider: Charmaine Pinedo, Status: Pen, Time: 11:40 AM FUV, Provider: Charmaine Pinedo, Status: Pen, Time: 11:40 AM [facility] 250 DO Work Phone: Start: 09-10-2022 FUV, Provider: Charmaine Pinedo, Status: Pen, Time: 10:40 AM FUV, Provider: Charmaine Pinedo, Status: Pen, Time: 10:40 AM [facility] 250 DO Work Phone: Start: 03-04-2022 FUV, Provider: Charmaine Pinedo, Status: Pen, Time: 3:30 PM FUV, Provider: Charmaine Pinedo, Status: Pen, Time: 3:30 PM [facility] 250 DO Work Phone: Start: 11-12-2021 COVID-19 Vaccine (4 - Pfizer series) COVID-19 Vaccine (4 - Pfizer series) [facility] Start: 10-31-2021 FUV, Provider: Charmaine Pinedo, Status: Pen, Time: 9:15 AM FUV, Provider: Charmaine Pinedo, Status: Pen, Time: 9:15 AM [facility] [address] [place] Work Phone: Start: 09-08-2017 Pneumococcal vaccination Pneumococcal Vaccine (2 of 2 - PPSV23) [facility] Start: 09-08-2017 Pneumococcal Vaccine : 65+ Years (2 - PPSV23 or PCV20) Pneumococcal Vaccine: 65+ Years (2 - PPSV23 or PCV20) [facility] Start: 09-08-2017 Pneumococcal Vaccine : 65+ Years (2 of 2 - PPSV23 or PCV20) Pneumococcal Vaccine: 65+ Years (2 of 2 - PPSV23 or PCV20) [facility] Start: 11-03-2016 Pneumococcal Vaccine : 65+ Years (2 of 2 - PPSV23 or PCV20) Pneumococcal Vaccine: 65+ Years (2 of 2 - PPSV23 or PCV20) [facility] Start: 2016 RSV High Risk: (Elde rly (60+) or Population) (1 - 1-dose 75+ series) RSV High Risk: (Elderly (60+) or Population) (1 - 1-dose 75+ series) [facility] Start: 2001 RSV patient s and/or patients aged 60+ years (1 - 1-dose 60+ series) RSV patients and/or patients aged 60+ years (1 - 1-dose 60+ series) [facility] Start: 1991 Zoster Vaccines (1 o f 2) Zoster Vaccines (1 of 2) [facility] Start: 1959 Diabetes mellitus screening Diabetes Screening [facility] Start: 1941 Lipid panel Lipid Panel [facility] Start: 1941 Medicare Annual Wellness Visit Medicare Annual Wellness Visit (AWV) [facility] Start: 1941 Screening for osteoporosis Bone Density Scan [facility] Albumin/Globulin ratio [facility] Anion gap measurement [facility] aPTT in Platelet poo r plasma by Coagulation assay [facility] Basophils [#/volume] in Blood by Automated count [facility] Basophils/100 leukocytes in Blood by Automated count [facility] Bilirubin.indirect [Mass/volume] in Serum or Plasma [facility] Eosinophils/100 leukocytes in Blood by Automated count [facility] Erythrocyte distribution width [Ratio] by Automated count [facility] Erythrocytes [#/volu me] in Blood [facility] Globulin [Mass/volum e] in Serum [facility] Hematocrit [Volume Fraction] of Blood [facility] Hemoglobin [Mass/volume] in Blood [facility] INR in Platelet poor plasma by Coagulation assay [facility] Leukocytes [#/volume ] corrected for nucleated erythrocytes in Blood by Automated coun [facility] Leukocytes [#/volume ] in Blood [facility] Lymphocytes [#/volum e] in Blood by Automated count [facility] Lymphocytes/100 leukocytes in Blood by Automated count [facility] MCH [Entitic mass] b y Automated count [facility] MCHC [Mass/volume] b y Automated count [facility] MCV [Entitic volume] by Automated count [facility] Monocytes [#/volume] in Blood by Automated count [facility] Monocytes/100 leukocytes in Blood by Automated count [facility] Neutrophils [#/volum e] in Blood by Automated count [facility] Neutrophils/100 leukocytes in Blood by Automated count [facility] Nucleated erythrocyt es [Presence] in Blood by Automated count [facility] Patient Education [facility] Work Phone: Patient referral [facility] Work Phone: Platelet mean volume [Entitic volume] in Blood by Automated count [facility] Platelets [#/volume] in Blood [facility] Prothrombin time (PT) [facility] Immunizations Immunization Date Immunization Notes Care Provider Fa cili 01-14-2022 diphtheria, tetanus toxoids and pertussis vaccine Raghav Mitchell Work Phone: [place] [address] DO Work Phone: 01-14-2022 tetanus toxoid, redu juan pablo diphtheria toxoid, and acellular pertussis vaccine, adsorbed Charmaine Pinedo MD Work Phone: [facility] Work Phone: 09-17-2021 Pfizer-BioNTech COVID-19 Vacc 30 MCG/0.3ML Intramuscular Suspension Raghav Mitchell Work Phone: [place] [address] DO Work Phone: 02-04-2021 Pfizer-BioNTech COVID-19 Vacc 30 MCG/0.3ML Intramuscular Suspension Raghav Mitchell Work Phone: [facility] 250 DO Work Phone: 01-07-2021 Pfizer-BioNTech COVID-19 Vacc 30 MCG/0.3ML Intramuscular Suspension Raghav Mitchell Work Phone: [facility] 250 DO Work Phone: 09-08-2016 pneumococcal conjuga te vaccine, 13 valent Raghav Mitchell Work Phone: [facility] 250 DO Work Phone: Payers Date Payer Category Payer Self-pay [id number] 2021 Private Health Insurance [employer] Member Subscriber Plan / Payer (Effective 2021-Present) Name: Jessy Dow Relation to Subscriber: Self Name: Jessy Dow Payer ID: Not on file Type: Not on file Address: [place] [id number] 2006 Medicare [id number] 1959 Medicare [id number] 1959 Unknown [id number] 2.16.840.1.824579.19 1941 Unknown [id number] 2.16.840.1.733031.3.579.2. 355 1941 Unknown [id number] 2.16.840.1.040436.3.579.2. 355 1941 Unknown [id number] 2.16.840.1.356188.3.579.2. 355 1941 Unknown [id number] 2.16.840.1.624433.3.579.2. 593 1941 Unknown [id number] 2.16.840.1.317536.3.579.2. 593 1941 Unknown [id number] 2.16.840.1.626009.3.579.2. 593 1941 Unknown [id number] 2.16.840.1.826010.3.579.2. 593 1941 Unknown [id number] 2.16.840.1.763998.3.579.2. 593 1941 Unknown [id number] 2.16.840.1.926760.3.579.2. 593 1941 Unknown [id number] 2.16.840.1.606443.3.579.2. 356 1941 Unknown [id number] 2.16.840.1.656014.3.579.2. 356 1941 Unknown [id number] 2.16.840.1.067596.3.579.2. 1286 1941 Unknown [id number] 2.16.840.1.544397.3.579.2. 1259 1941 Unknown [id number] 2.16.840.1.754333.3.579.2. 1259 1941 Unknown [id number] 2.16.840.1.749318.3.579.2. 1259 1941 Unknown [id number] 2.16.840.1.141853.3.579.2. 1259 1941 Unknown [id number] 2.16.840.1.546919.3.579.2. 1259 1941 Unknown [id number] 2.16.840.1.079389.3.579.2. 1259 1941 Unknown [id number] 2.16.840.1.234049.3.579.2. 1259 1941 Unknown [id number] 2.16.840.1.060301.3.579.2. 1259 1941 Unknown [id number] 2.16.840.1.027015.3.579.2. 1259 1941 Unknown [id number] 2.16.840.1.839912.3.579.2. 1259 1941 Unknown [id number] 2.16.840.1.829421.3.579.2. 1259 1941 Unknown [id number] 2.16.840.1.096521.3.579.2. 1259 1941 Unknown [id number] 2.16.840.1.450564.3.579.2. 1259 1941 Unknown [id number] 2.16.840.1.039449.3.579.2. 1259 1941 Unknown [id number] 2.16.840.1.859245.3.579.2. 1244 1941 Unknown [id number] 2.16.840.1.040651.3.579.2. 1244 Medicare [id number] Unknown [id number] Unknown Unknown [facility] [id number] Unknown [id number] 2.16.840.1.891834.3.579.2. 531 Unknown [id number] 2.16.840.1.563596.3.579.2. 531 Unknown [id number] 2.16.840.1.616588.3.579.2. 531 Social History Date Type Detail Facility Start: 07-23-2023 End: 11-25-2024 Never a smoker Never a smoker [facility] 250 DO Work Phone: Start: 07-23-2023 End: 11-25-2024 Sex Assigned At [facility] [employer] Other Start: 06-06-2022 End: 07-10-2023 Tobacco smoking status NHIS Never smoked tobacco (finding) [facility] Start: 1940 Sex Assigned At Female [facility] Start: 04-28-2023 End: 07-10-2023 Tobacco use and exposure Smokeless tobacco non-user [facility] Work Phone: Start: 1940 Sex Assigned At Not on file [facility] Work Phone: Start: 08-08-2023 End: 11-25-2024 Exposure to SARS-CoV-2 (event) Not sure [facility] Start: 09-18-2023 End: 11-25-2024 Alcohol intake Lifetime non-drinker (finding) [facility] Work Phone: Within the last year [...] smoker [facility] Clinical Notes 07-24-2022 to 11-25-2024 Charmaine Pinedo MD - 11/25/2024 2:50 PM ESTPatient Sherrell Rubio DPM - 11/02/2024 10:45 AM Genny Worthington PTA - 10/25/2024 10:31 AM Brian Mitchell DO - 09/27/2024 11:20 AM EST Note Date & Type Note Facility 11-25-2024 History of Present illness Narrative Subjective Jessy Dow is a 84 y.o. female Chief Complaint Follow-up HPI Patient is in the office for follow-up for the problems noted below accompanied by her daughter. Few days ago she called our office complaining that her heart rate was increasing up to nearly 100 bpm from her normal baseline of 60 to 70 bpm and has been dealing recently with diverticulitis requiring ER visit. EKG today revealed that she is in sinus rhythm with a heart rate of 78 bpm. She is on flecainide and long-term anticoagulation. Her weight is coming down but remains obese. Her blood pressure is normal. She has not had any recent lab data. Apart from her class I obesity physical examination was normal. ASSESSMENT AND PLAN: 1. Paroxysmal atrial fibrillation, on flecainide and Eliquis. The patient is on a very small dose flecainide due to previous intolerance to higher dose with severe bradycardia, due to episode of increased heart rate she will be utilizing metoprolol tartrate 25 mg as needed. 2. High-risk medication, Eliquis and flecainide, so far both are well-tolerated at the present doses 3. Class I obesity, her weight is coming down nicely and she has been modifying her lifestyle. 4. Essential hypertension, presently controlled 5. History of microcytic anemia likely caused by diverticulitis, was advised to continue to follow with gastroenterology. 6. Venous insufficiency in the lower extremities leading to intermittent lower extremity edema, compression stockings are recommended and avoiding prolonged standing. Review of Systems All other systems reviewed and are negative. Vitals: 11/25/24 1453 BP: 130/62 BP Location: Left arm Patient Position: Sitting Pulse: 78 Weight: 83.5 kg (184 lb) Height: 1.6 m (5' 3 ) EKG [...] Thought content normal. Judgment: Judgment normal. Allergies Doxycycline, Norah inhibitors, Amlodipine, Chlorthalidone, Codeine, Hydrochlorothiazide, Loperamide, Nifedipine, Penicillins, and Sulfamethoxazole Current Medications Current Outpatient Medications: cloNIDine (Catapres) [...] a day., Disp: 180 tablet, Rfl: 3 hyoscyamine (Anaspaz, Levsin) 0.125 mg tablet, Take 1 tablet (0.125 mg) by mouth every 6 hours if needed for cramping (abdominal pain)., Disp: , Rfl: irbesartan (Avapro) 150 mg tablet, TAKE 1 TABLET BY MOUTH EVERY 12 HOURS, Disp: 180 tablet, Rfl: 3 spironolactone (Aldactone) 50 mg tablet, Take 1 tablet (50 mg) by mouth once daily., Disp: 90 tablet, Rfl: 3 metoprolol tartrate (Lopressor) 25 mg tablet, Take one tablet as needed for break through a fib, Disp: 20 tablet, Rfl: 1 Assessment/Plan 1. Paroxysmal atrial fibrillation (Multi) ECG 12 Lead Basic Metabolic Panel CBC metoprolol tartrate (Lopressor) 25 mg tablet Basic Metabolic Panel CBC 2. Essential hypertension, benign Follow Up In Cardiology Follow Up In Cardiology Basic Metabolic Panel Basic Metabolic Panel 3. Right bundle branch block (RBBB) on electrocardiography 4. Anticoagulated Basic Metabolic Panel CBC Basic Metabolic Panel CBC 5. Never smoked any substance 6. BMI 32.0-32.9,adult Scribe Attestation By signing my name below, IRose Marie LPN , Scribe attest that this documentation [...] discussion and plan. documented in this encounter [facility] Work Phone: 11-25-2024 Instructions Rose Marie Yadav LPN - 11/25/2024 2:50 PM EST Please bring all medicines, vitamins, and herbal supplements with you when you come to the office. Prescriptions will not be filled unless you are compliant with your follow up appointments or have a follow up appointment scheduled as per instruction of your physician. Refills should be requested at the time of your visit. BMI was above normal measurement. Current weight: 83.5 kg (184 lb) Weight change since last visit (-) denotes wt loss -12.8 lbs Weight loss needed to achieve BMI 25: 43.2 Lbs Weight loss needed to achieve BMI 30: 15 Lbs Provided instructions on dietary changes. Lab work Metoprolol tart 25 mg as needed Follow up documented in this encounter [facility] Work Phone: 11-02-2024 History of Present illness Narrative Images [...] BILATERAL Bilateral 2018 CHOLECYSTECTOMY [facility] COLONOSCOPY 2003 [facility] COLONOSCOPY 11/2017 -moderate sigmoid diverticular disease HEART CATH 01/17/2019 OTHER SURGICAL HISTORY avoiding seeds- Diverticulosis [place] EXCISION THYROGLOSSAL DUCT CYST/SINUS TOTAL ABDOMINAL HYSTERECTOMY [...] utilizing a nail nipper and electric bur rotary surface grinder without incident. Patient noted relief of [...] Porfirio Rubio DPM documented in this encounter [facility] 10-25-2024 History of Present illness Narrative Pt was called and she reported her hip and knees are feeling better. She does not want to do formal therapy at this time. She will be discharged and if she needs further assistance she was told to get another referral. documented in this encounter [facility] 10-10-2024 Telephone encounter Note She was scheduled 10/05 for Eval and 10/07 but ended up cancelling also. [facility] 10-10-2024 Miscellaneous Notes She was scheduled 10/05 [...] her call back. documented in this encounter [facility] 10-10-2024 Telephone encounter Note She called noting she is currently dealing w/ diverticulitis and feels starting PT up would not be good. I mentioned her Eval scheduled 10/17 can be moved to 10/24; but she said she'd feel better if we could RS her PT per her call back. [facility] 10-03-2024 Telephone encounter Note She called noting her mother was dealing w/ other medical conditions at the time and requested to cx out a week or 2. We cx Eval and the 2 the following week and rs Eval for 10/17/24; she is scheduled out to 10/26. [facility] 10-03-2024 Miscellaneous Notes She called noting her mother was dealing w/ other medical conditions at the time and requested to cx out a week or 2. We cx Eval and the 2 the following week and rs Eval for 10/17/24; she is scheduled out to 10/26. documented in this encounter [facility] 09-27-2024 History of Present illness Narrative Images from the original note were not included. History of Present Illness The patient is an 84-year-old female who presents for evaluation of left leg swelling, hip pain, and diverticulitis. Pt c/o bilateral leg swelling left leg has more swelling. Pt states that when she spoke with the lime kiln worker helper he told her he thinks it may [...] for the past 2 weeks, decorating for [place] despite her hip pain. She has a [...] thrombosis, which is a positive outcome. The lime kiln worker helper suspects a vascular etiology, potentially related to [...] follow-ups on file. documented in this encounter [facility] 09-26-2024 History of Present illness Narrative Images [...] Date A-fib ([facility] Anita-Walker grade 3 cystocele Bradycardia 04/2019 COVID Diverticulosis Hot flashes Hx of being hospitalized [place] [facility] [place] ; discharged 01/17/2019 Hx of being hospitalized 11/04/2018 [facility] [place] [facility] [place]/05/2018 hypertension Hx of being hospitalized 08/16/2016 [place] [facility] [place] 08/17/2016 Hx of thyroglossal duct cyst Macular degeneration Personal history of other medical treatment LVB 9# 10oz PAST SURGICAL HISTORY: Past Surgical History: Procedure Laterality Date CATARACT EXTRACTION, BILATERAL Bilateral 2018 CHOLECYSTECTOMY [facility] COLONOSCOPY 2003 [facility] COLONOSCOPY 11/2017 -moderate sigmoid diverticular disease HEART CATH 01/17/2019 OTHER SURGICAL HISTORY avoiding seeds- Diverticulosis [place] EXCISION THYROGLOSSAL DUCT CYST/SINUS TOTAL ABDOMINAL HYSTERECTOMY 1971 SOCIAL HISTORY: Social History Occupational History Not [...] 09/26/2025 Scheduling Instructions: STAT R/O DVT ; [facility] [place] ; PLEASE HOLD AND CALL WITH RESULTS [...] requiring urgent evaluation. documented in this encounter [facility] 10-30-2024 History of Present illness Narrative Images from [...] BILATERAL Bilateral 2018 CHOLECYSTECTOMY [facility] COLONOSCOPY 2003 [facility] COLONOSCOPY 11/2017 -moderate sigmoid diverticular disease HEART CATH 01/17/2019 OTHER SURGICAL HISTORY avoiding seeds- Diverticulosis [place] EXCISION THYROGLOSSAL DUCT CYST/SINUS TOTAL ABDOMINAL HYSTERECTOMY [...] utilizing a nail nipper and electric bur rotary surface grinder without incident. Patient noted relief of [...] Porfirio Rubio DPM documented in this encounter [facility] 05-12-2024 History of Present illness Narrative Images from the original note were not included. Jessy Dow is a 83 y.o. female presents with chief complaint of No chief complaint on file. HPI: HPI Had severe right abd. Pain. [place] per squad [place] [facility] but she left AMA 5 hours later. Went to [place] after that. Soreness has resolved a lot. [...] subsided by the time she arrived in [place]. Despite using a suppository in the morning, her pain persisted. Her blood pressure spiked to 173/72, despite taking her prescribed medications. After her CT scan, a doctor's executive assistant to president reviewed her results and provided her with [...] follow-ups on file. documented in this encounter [facility] 04-13-2024 History of Present illness Narrative Subjective [...] medical therapy is recommended Charmaine Pinedo MD, [facility] Review of Systems All other systems reviewed [...] Scribe Attestation By signing my name below, Rose Marie Benz LPN, Scribe attest that this documentation has [...] discussion and plan. documented in this encounter [facility] Work Phone: 04-13-2024 Instructions Rose Marie [...] with gastro/Dr. Edwards documented in this encounter [facility] Work Phone: 09-18-2023 History of Present [...] medical therapy is recommended Charmaine Pinedo MD, [facility] Review of Systems Cardiovascular: Positive for irregular [...] Charmaine Pinedo MD. documented in this encounter [facility] Work Phone: 09-18-2023 Instructions Natasha Aranda [...] of your visit. documented in this encounter [facility] Work Phone: 08-18-2023 History of Present [...] Up In Cardiology documented in this encounter [facility] Work Phone: 08-18-2023 Instructions Rose Marie Yadav LPN - 08/18/2023 8:30 AM EST Sep 2023 visit pending. Same meds documented in this encounter [facility] Work Phone: 07-24-2022 Evaluation note Encounter [...] - R19.8) PATIENT DOES USE THE BENEFIBER [facility] [employer] Other Evaluation noteNo InformationNort [employer] Other Evaluation noteNo assessment information available [facility] Work Phone: Evaluation note* Diagnosis Essential hypertension, benign documented in this encounter [facility] Work Phone: Evaluation note* Diagnosis Paroxysmal atrial fibrillation (CMS/HCC)- Primary Atrial fibrillation Essential hypertension, benign Never smoked any substance High risk medication use Class II obesity Premature atrial contractions Supraventricular premature beats documented in this encounter [facility] Work Phone: Evaluation note* Diagnosis Onychomycosis- Primary Dermatophytosis of nail Onychodystrophy Other specified disease of nail Pain in both feet documented in this encounter [facility] HealthcareEvaluation note* Diagnosis Other thrombophilia (CMS/HCC) Stricture of artery (CMS/HCC) Stricture of artery Other forms of angina pectoris (CMS/HCC) Angina pectoris, unspecified (CMS/HCC) documented in this encounter [facility] HealthcareEvaluation note* Diagnosis Paroxysmal atrial fibrillation (Multi)- Primary Atrial fibrillation Essential hypertension, benign Right bundle branch block (RBBB) on electrocardiography Anticoagulated Encounter for long-term (current) use of anticoagulants Never smoked any substance BMI 34.0-34.9,adult Microcytic anemia Unspecified iron deficiency anemia High risk medication use Diverticulitis Diverticulitis of colon (without mention of hemorrhage) documented in this encounter [facility] Work Phone: Evaluation note* Diagnosis Acute hip pain, left- Primary Left leg swelling Trochanteric bursitis of left hip Pain of left calf Pain of left calf documented in this encounter [facility] HealthcareEvaluation note* Diagnosis Varicose veins of both legs with edema- Primary Diverticulitis Diverticulitis of colon (without mention of hemorrhage) documented in this encounter [facility] HealthcareEvaluation note* Diagnosis Onychomycosis- Primary Dermatophytosis of nail Onychodystrophy Other specified disease of nail Pain in both feet documented in this encounter [facility] HealthcareEvaluation note* Diagnosis Paroxysmal atrial fibrillation (Multi)- Primary Atrial fibrillation Essential hypertension, benign Anticoagulated Encounter for long-term (current) use of anticoagulants Never smoked any substance BMI 32.0-32.9,adult High risk medication use Iron deficiency anemia due to chronic blood loss Iron deficiency anemia secondary to blood loss (chronic) Obesity, Class I, BMI 30-34.9 Diverticulitis Diverticulitis of colon (without mention of hemorrhage) documented in this encounter [facility] Work Phone: History general Narrative - Reported* Type Description Date Medical History HTN Medical History a.fib Medical History diverticulitis Surgical History hysterectomy Surgical History Gallbladder Surgical History Appendix [employer] Other Reason for visit Narrative* Consultation (Routine) - Authorized Specialty Diagnoses / Procedures Referred By Contac t Referred To Contact Cardiology Diagnoses Paroxysmal atrial fibrillation (Multi) Procedures Follow Up In Cardiology Charmaine Pinedo MD [address] [place] [address], [place] [address] Charmaine Pinedo MD [address] [place] [address] 2, [address] [address] Referral ID Status Reason Start Date Expiration Date V isits Requested Visits Authorized [id number] Authorized 09/18/2023 09/17/2024 1 1 [facility] Work Phone: Summary Purpose Family History [...] emergency department back in May 20[facility] at [facility] the recordfrom the visit were [...] getting under control. * Charmaine Pinedo MD, [facility] * JESSY DOW is being seen for [...] therapy is recommended * Charmaine Pinedo MD, [facility] Chief Complaint and Reason for Visit Chief Complaint cp Chief Complaint hypertension Chief Complaint Chest pain Chief Complaint Chest pain palpitations Chief Complaint ABD PAIN Reason for Referral Specialty Diagnoses / Procedures Referred By Vern quiroga Referred To Contact Diagnoses Paroxysmal atrial fibrillation ([facility]/HCC) Procedures ECG 12 Lead Charmaine Pinedo MD [address] [place] [address] 2, [address] [address] Referral ID Status Reason Start Date Expiration Date V isits Requested Visits Authorized [id number] Pending Review 09/18/2023 09/17/2024 1 1 Specialty Diagnoses / Procedures Referred By Vern quiroga Referred To Contact Cardiology Diagnoses Paroxysmal atrial fibrillation (CMS/HCC) Procedures Follow Up In Cardiology Charmaine Pinedo MD [address] [facility] 2, [address] [address] Charmaine Pinedo MD [address] [place] [address] 2, [address] [address] Referral ID Status Reason Start Date Expiration Date V isits Requested Visits Authorized [id number] Authorized 09/18/2023 09/17/2024 1 1 Additional Source Comments INFORMATION SOURCE (unrecogn ized section and content) DATE CREATED AUTHOR 12/02/2018 [facility] DATE CREATED AUTHOR AUTHOR'S ORGANIZ ATION 02/11/2020 [facility] DATE CREATED AUTHOR AUTHOR'S ORGANIZ ATION 10/09/2022 [facility] DATE CREATED AUTHOR AUTHOR'S ORGANIZ ATION 04/17/2023 [facility] DATE CREATED AUTHOR AUTHOR'S ORGANIZ ATION 04/17/2023 [employer] DATE CREATED AUTHOR AUTHOR'S ORGANIZ ATION 09/24/2023 [facility] DATE CREATED AUTHOR AUTHOR'S ORGANIZ ATION 01/27/2024 [facility] DATE CREATED AUTHOR AUTHOR'S ORGANIZ ATION 11/04/2024 [facility] DATE CREATED AUTHOR AUTHOR'S ORGANIZ ATION 11/29/2024 [facility] REASON FOR VISIT (unrecogniz ed section and content) Reason Comments Hypertension Specialty Diagnoses / Procedures Referred By Contac t Referred To Contact Cardiology Diagnoses Essential hypertension, benign Procedures Follow Up In Cardiology Charmaine Pinedo MD [address] [place] [address] 2, [address] [address] Referral ID Status Reason Start Date Expiration Date V isits Requested Visits Authorized [id number] Authorized 07/23/2023 07/22/2024 1 1 Reason Comments Follow-up 6 months Specialty Diagnoses / Procedures Referred By Contac t Referred To Contact Diagnoses Paroxysmal atrial fibrillation (CMS/HCC) Procedures ECG 12 Lead Charmaine Pinedo MD [address] [place] [address] 2, [address] [address] Referral ID Status Reason Start Date Expiration Date V isits Requested Visits Authorized [id number] Pending Review 09/18/2023 09/17/2024 1 1 Reason Comments Pain Reason Comments Leg Swelling Reason Onset Date Comments Cx / Rs PT needed 10/03/2024 Reason Onset Date Comments CX PT 10/17 - 10/26/24 10/10/2024 Reason Comments Nail care Jessy Dow is a 84 y.o. female who presents for Nail care. Reason Comments Follow-up 6m Specialty Diagnoses / Procedures Referred By Vern t Referred To Contact Cardiology Diagnoses Essential hypertension, benign Procedures Follow Up In Cardiology Charmaine Pinedo MD [address] [place] [address] 2, [address] [address] Phone: tel: fax: Charmaine Pinedo MD [address] [place] [address] 2, [address] [place] [address] Phone: tel: fax: Referral ID Status Reason Start Date Expiration Date V isits Requested Visits Authorized [id number] Authorized 04/13/2024 04/13/2025 1 1 Care Teams (unrecognized sec tion [...] Gonzalo Smith Jr, MD Emergency Provider Active Regulatory Manager Relationship Specialty Start Date End Date Raghav Mitchell DO [address] [place] [phone] PCP - General 02/08/20 Regulatory Manager Relationship Specialty Start Date End Date Raghav Mitchell DO [address] [place] [phone] PCP - General 02/08/20 Team Status: Inactive Member Role Status Dates Raghav Mitchell DO Primary Care Provider Active St art: April 21, 2024 End: April 21, 2024 Alvin Murphy DO Emergency Provider Active St art: April 21, 2024 End: April 21, 2024 Regulatory Manager Relationship Specialty Start Date End Date Raghav Mitchell DO [address] [facility] [address] [place] [address] PCP - ACO Reach 02/19/23 Raghav Mitchell DO [address] [facility] [address] [place] [address] PCP - General Family Medicine 03/05/23 Charmaine Pinedo MD [address] [place] [address] Referring Physician Cardiology 02/01/24 Porfirio Rubio DPM [address] [place] [address] Referring Physician Podiatry 02/01/24 Regulatory Manager Relationship Specialty Start Date End Date Raghav Mitchell, [address] [facility] [address] [place] [address] PCP - ACO Reach 02/19/23 Raghav Mitchell, [address] [facility] [address] [place] [address] PCP - General Family Medicine 03/05/23 Charmaine Pinedo MD [address] [address] Referring Physician Cardiology 02/01/24 Porfirio Rubio DPM [address] [place] [address] Referring Physician Podiatry 02/01/24 Regulatory Manager Relationship Specialty Start Date End Date Raghav Mitchell, [address] [address] PCP - General 02/08/20 Regulatory Manager Relationship Specialty Start Date End Date Raghav Mitchell, [address] [facility] [address] [place] [address] PCP - ACO Reach 02/19/23 Raghav Mitchell, [address] [facility] [address] [place] [address] PCP - General Family Medicine 03/05/23 Charmaine Pinedo MD [address] [address] Referring Physician Cardiology 02/01/24 Porfirio Rubio DPM [address] [place] [address] Referring Physician Podiatry 02/01/24 Regulatory Manager Relationship Specialty Start Date End Date Raghav Mitchell, [address] [facility] [address] [place] [address] PCP - ACO Reach 02/19/23 Raghav Mitchell, [address] [facility] [address] [place] [address] PCP - General Family Medicine 03/05/23 Charmaine Pinedo MD [address] [address] Referring Physician Cardiology 02/01/24 Porfirio Rubio DPM [address] [place] [address] Referring Physician Podiatry 02/01/24 Regulatory Manager Relationship Specialty Start Date End Date Raghav Mitchell DO [address] [facility] [address] [place] [address] PCP - ACO Reach 02/19/23 Raghav Mitchell, [address] [facility] [address] [place] [address] PCP - General Family Medicine 03/05/23 Charmaine Pinedo MD [address] [facility] [address] [place] [address] Referring Physician Cardiology 02/01/24 Porfirio Rubio DPM [address] [place] [address] Referring Physician Podiatry 02/01/24 Regulatory Manager Relationship Specialty Start Date End Date Raghav Mitchell DO [address] [facility] [address] [place] [address] PCP - ACO Reach 02/19/23 Raghav Mitchell DO [address] [facility] [address] [place] [address] PCP - General Family Medicine 03/05/23 Charmaine Pinedo MD [address] [address] [place] [address] Referring Physician Cardiology 02/01/24 Porfirio Rubio DPM [address] [place] [address] Referring Physician Podiatry 02/01/24 Regulatory Manager Relationship Specialty Start Date End Date Raghav Mitchell DO [address] [facility] [address] [place] [address] PCP - ACO Reach 02/19/23 Raghav Mitchell DO [address] [facility] [address] [place] [address] PCP - General Family Medicine 03/05/23 Charmaine Pinedo MD [address] [place] [address] [address] [place] [address] Referring Physician Cardiology 02/01/24 Porfirio Rubio DPM [address] [place] [address] Referring Physician Podiatry 02/01/24 Regulatory Manager Relationship Specialty Start Date End Date Raghav Mitchell DO [address] [facility] [address] [place] [address] PCP - ACO Reach 02/19/23 Raghav Mitchell DO [address] [facility] [address] [place] [address] PCP - General Family Medicine 03/05/23 Charmaine Pinedo MD [address] [place] [address] [address] [place] [address] Referring Physician Cardiology 02/01/24 Porfirio Rubio DPM [address] [place] [address] Referring Physician Podiatry 02/01/24 Regulatory Manager Relationship Specialty Start Date End Date Raghav Mitchell DO [address] [facility] [address] [place] [address] PCP - ACO Reach 02/19/23 Raghav Mitchell DO [address] [facility] [address] [place] [address] PCP - General Family Medicine 03/05/23 Charmaine Pinedo MD [address] [facility] [address] [place] [address] Referring Physician Cardiology 02/01/24 Porfirio Rubio DPM [address] [place] [address] Referring Physician Podiatry 02/01/24 Regulatory Manager Relationship Specialty Start Date End Date Raghav Mitchell DO [address] [place] [address] PCP - General 02/08/20 Goals (unrecognized section [...] BE BASED ON THE PRIMARY CLINICAL RECORDS. [facility] [employer] [facility]. provides no warranty or guarantee of the accuracy or completeness of information in this document.
[2024-12-02 13:27] LABS: Basophils Percent Auto 0.3 % (0.2-2.0); Eosinophils Percent Auto 0.5 % (0.9-7.0); Hematocrit 33.6 % (36.0-48.0); Hemoglobin 10.1 g/dL (12.0-16.0); Immature Granulocytes Abs Auto 0.02 10^3/uL (0.00-0.03); Immature Granulocytes Pct Auto 0.3 % (0.0-0.5); Lymphocytes Absolute Auto 0.8 10^3/uL (1.2-3.8); Lymphocytes Percent Auto 10.7 % (20.5-60.0); Mean Corpuscular HGB Conc 30.1 g/dL (29.9-35.2); Mean Corpuscular Hemoglobin 24.5 pg (26.7-34.0); Mean Corpuscular Volume 81.4 fL (81.0-99.0); Mean Platelet Volume 9.8 fL (9.5-13.5); Monocytes Absolute Auto 0.5 10^3/uL (0.3-0.8); Monocytes Percent Auto 6.6 % (1.7-12.0); Neutrophils Absolute Auto 6.1 10^3/uL (1.4-6.5); Neutrophils Percent Auto 81.6 % (43.0-75.0); Platelet Count 267 10^3/uL (150-450); Red Blood Count 4.13 10^6/uL (4.20-5.40); Red Cell Distribution Width 17.9 % (11.0-15.0); White Blood Count 7.5 10^3/uL (4.0-11.0)
[2024-12-02 13:44] LABS: Anion Gap 12.7; BUN Creatinine Ratio 9.5; Calcium 8.7 mg/dL (8.5-10.1); Carbon Dioxide 26.5 mmol/L (21.0-32.0); Chloride 106 mmol/L (98-107); Estimated GFR (African America 54 (>=60 mL/min/1.73m^2); Estimated GFR (Non-African Ame 45 (>=60 mL/min/1.73m^2); Glucose 109 mg/dL (74-106); Potassium 4.2 mmol/L (3.5-5.1); Sodium 141 mmol/L (136-145)
== END 2024-12-02 13:01 | disposition home or self-care (01) ==
LOC: LAB 13:01
PROVIDERS: PCP Family Medicine; Visit Provider Internal Medicine Cardiovascular Disease
DX: I48.0 Paroxysmal atrial fibrillation (principal); I10 Essential (primary) hypertension; Z79.01 Long term (current) use of anticoagulants
CPT/HCPCS: 36415; 80048; 85025

== ENCOUNTER 2025-06-23 16:02 | Emergency (ER) | payer MEDICARE, OTHER, SELFPAY ==
--- OUTSIDE RECORDS SUMMARY | 2025-06-09 15:40 | XMS_ITS | Encounter Summary ---
Author Organization [facility] Address [address] [place] [address] Care Team Providers Care Pulp Mill Operator Name Role Phone Raghav Mitchell DO Unavailable [phone] Raghav Mitchell DO Primary Care Provider [phone] Charmaine Tilley MD Unavailable Porfirio Rubio DPM Unavailable [phone] Reason for Visit * Reason Comments Flank Pain Encounter Details Date Type Department Care Team (Late st Contact Info) Description 06/09/2025 3:40 PM EDT Office Visit [facility] Family Practice [address] [facility] [address] [place] [address] Raghav Mitchell, [address] [facility] [address] [place] [address] Social History Tobacco Use Types Packs/Day Years Used Date Smoking Tobacco: Never Passive Smoke Exposure: Never Smokeless Tobacco: Never Alcohol Use Standard Drinks/Week Comments Never 0 (1 standard drink = 0.6 oz pur e alcohol) Caffeine intake: none B1300 Health Literacy Answer Date Recor ded How often do you need to hav e someone help you when you read instructions, pamphlets, or other written material from your doctor or pharmacy? Sometimes 09/07/2024 Humiliation, Afraid, Rape, and Kick questionnair e Answer Date Recorded Within the last year, have y ou been afraid of your partner or ex-partner? No 09/07/2024 Within the last year, have y ou been humiliated or emotionally abused in other ways by your partner or ex-partner? No Within the last year, have y ou been kicked, hit, slapped, or otherwise physically hurt by your partner or ex-partner? No 09/07/2024 Within the last year, have y ou been raped or forced to have any kind of sexual activity by your partner or ex-partner? No 09/07/2024 Social Connection and Isolat ion Panel [NHANES] Answer Date Recorded In a typical week, how many times do you talk on the phone with family, friends, or neighbors? Twice a week 09/07/2024 How often do you get togethe r with friends or relatives? More than three times a week 09/07/2024 How often do you attend [facility] or gnosticist services? 1 to 4 times per year 09/07/2024 Do you belong to any clubs o r organizations such as yazidi groups, unions, fraternal or athletic groups, or school groups? No 09/07/2024 How often do you attend meet ings of the clubs or organizations you belong to? Never 09/07/2024 Are you , , di vorced, , never , or living with a partner? 09/07/2024 AUDIT-C Answer Date Recorded Q1: How often do you have a drink containing alcohol? Never 09/07/2024 Q2: How many drinks containi ng alcohol do you have on a typical day when you are drinking? Patient does not drink Q3: How often do you have si x or more drinks on one occasion? Never 09/07/2024 Overall Financial Resource Strain (CARDIA) Answe r Date Recorded How hard is it for you to pa y for the very basics like food, housing, medical care, and heating? Not very hard 09/07/2024 PHQ-2 Answer Date Recorded Patient Health Questionnaire-2 Score 0 06/09/2025 [facility] Occupat ional Health - Occupational Stress Questionnaire Answer Date Recorded Do you feel stress - tense, restless, nervous, or anxious, or unable to sleep at night because your mind is troubled all the time - these days? Only a little 09/07/2024 Exercise Vital Sign Answer Date Recorde d On average, how many days pe r week do you engage in moderate to strenuous exercise (like a brisk walk)? 0 days 09/07/2024 On average, how many minutes do you engage in exercise at this level? 0 min 09/07/2024 Hunger Vital Sign Answer Date Recorded Within the past 12 months, y ou worried that your food would run out before you got the money to buy more. Never true 09/07/20 24 Within the past 12 months, t he food you bought just didn't last and you didn't have money to get more. Never true 09/07/2024 PRAPARE - Transportation Answer Date Re corded In the past 12 months, has l ack of transportation kept you from medical appointments or from getting medications? No 08/28 In the past 12 months, has l ack of transportation kept you from meetings, work, or from getting things needed for daily living? No 09/07/2024 Housing Stability Vital Sign Answer Brad e Recorded In the last 12 months, was t here a time when you were not able to pay the mortgage or rent on time? No 09/04/2023 In the last 12 months, how many places have you lived? 1 09/04/2023 In the last 12 months, was t here a time when you did not have a steady place to sleep or slept in a chcf (including now)? No 09/04/2023 Housing Stability Vital Sign Answer Brad e Recorded In the last 12 months, was t here a time when you were not able to pay the mortgage or rent on time? No 09/07/2024 In the past 12 months, how m any times have you moved where you were living? 0 09/07/2024 At any time in the past 12 m [facility], were you homeless or living in a chcf (including now)? No 09/07/2024 Comments Unknown Sex and Gender Information Value Date Recorded Sex Assigned at Not on file Legal Sex Female 6:43 PM EDT Gender Identity Not on file Sexual Orientation Not on file documented as of this encounter Last Filed Vital Signs Vital Sign Reading Time Taken Comments Blood Pressure 128/78 06/09/2025 3:48 PM EDT Pulse 75 06/09/2025 3:48 PM EDT Temperature 36.2 C (97.1 F) 06/09/2025 3:48 PM EDT Respiratory Rate - - Oxygen Saturation 97% 06/09/2025 3:48 PM EDT Inhaled Oxygen Concentration - - Weight 83.5 kg (184 lb) 06/09/2025 3:48 PM EDT Height 160 cm (5' 3 ) 06/09/2025 3:48 PM EDT Body Mass Index 32.59 06/09/2025 3:48 PM EDT documented in this encounter Functional Status * Over the past 2 weeks, how often have you been bothered by any of the following problems? Question Answer Date of Assessment Author Little interest or pleasure in doing things Not at all 06/09/2025 3:48 PM EDT Adrianne Persaud MA Feeling down, depressed, or hopeless Not at all 06/09/2025 3:48 PM EDT Adrianne Persaud MA Patient Health Questionnaire -2 Score 0 06/09/2025 3:48 PM EDT Adrianne Persaud MA documented as of this encounter Plan of Treatment Not on file documented as of this encounter Visit Diagnoses Not on filedocumented in this encounter Additional Health Concerns Assessment Noted Time PHQ-9 Depression Total Score: 0 02/09/20 25 4:01 PM EDT A fall risk assessment has been complete d for the patient 09/07/2024 10:29 AM EST documented as of this encounter Care Teams Pulp Mill Operator Relationship Specialty Start Date End Date Raghav Mitchell DO [address] [facility] [address] [place] [address] PCP - ACO Reach 02/19/23 Raghav Mitchell DO [address] [facility] [place] [address] PCP - General Family Medicine 03/05/23 Charmaine Tilley MD 703 [facility] 2, [address] [place] [address] Referring Physician Cardiology 02/01/24 Porfirio Rubio DPM [address] [place] [address] Referring Physician Podiatry 02/01/24 documented as of this encounter
[2025-06-23 16:05] VITALS: BP 167/63; PULSE 65; TEMP 36.7; O2SAT 98; BMI 30.1
--- OUTSIDE RECORDS SUMMARY | 2025-06-23 16:52 | XMS_ITS | Encounter Summary ---
Author Organization [facility] Address [address] [place] [address] Care Team Providers Care Inventory And Pricing Associate Name Role Phone Raghav Mitchell DO Unavailable [phone] Raghav Mitchell DO Primary Care Provider Charmaine Tilley MD Unavailable Porfirio Rubio DPM Unavailable [phone] Encounter Details Date Type Department Care Team (Late st Contact Info) Description 04/02/2023 [facility] [address] [place] [address] Porfirio Rubio DPRaffy [address] [place], [place] [id number] Social History Tobacco Use Types Packs/Day Years Used Date Smoking Tobacco: Never Smokeless Tobacco: Never Alcohol Use Standard Drinks/Week Comments Never 0 (1 standard drink = 0.6 oz pur e alcohol) Caffeine intake: none PHQ-2 Answer Date Recorded Patient Health Questionnaire-2 Score 0 03/04/2023 Comments Unknown Sex and Gender Information Value Date Recorded Sex Assigned at Not on file Legal Sex Female 6:43 PM EDT Gender Identity Not on file Sexual Orientation Not on file documented as of this encounter Plan of Treatment Not on file documented as of this encounter Visit Diagnoses Not on filedocumented in this encounter Care Teams Inventory And Pricing Associate Relationship Specialty Start Date End Date Raghav Mitchell DO [address] [address] PCP - ACO Reach 02/19/23 Raghav Mitchell DO [address] [facility] [address] [facility] [address] [place] [address] PCP - General Family Medicine 03/05/23 Charmaine Tilley MD 703 [facility] 2, [address] [place] [address] Referring Physician Cardiology 02/01/24 Porfirio Rubio DPM [address] [place] [address] Referring Physician Podiatry 02/01/24 documented as of this encounter
--- OUTSIDE RECORDS SUMMARY | 2025-06-23 16:52 | XMS_ITS | Encounter Summary ---
Author Organization [facility] Address [address] [place] [address] Phone Care Team Providers Care Hearing Therapy Director Name Role Phone Raghav Mitchell DO Primary Care Provider [phone] Encounter Details Date Type Department Care Team (Late st Contact Info) Description 07/27/2023 Scanned Document [facility] [address] [place] [phone] Scanning, Generic Provider Social History Tobacco Use Types Packs/Day Years Used Date Smoking Tobacco: Never Smokeless Tobacco: Never Comments Unknown Sex and Gender Information Value Date Recorded Sex Assigned at Not on file Legal Sex Female 10:39 AM EST Gender Identity Not on file Sexual Orientation Not on file COVID-19 Exposure Response Date Recorded In the last 10 days, have yo u been in contact with someone who was confirmed or suspected to have Coronavirus/COVID-19? No / Unsure 07/23/2023 9:55 AM EDT documented as of this encounter Plan of Treatment Upcoming Encounters Date Type Department Care Team (Late st Contact Info) Description 07/14/2025 3:20 PM EDT Office Visit [facility] 703 [facility] [address] [place] [address] Charmaine Tilley MD 703 [facility] 2, [address] [place] [address] documented as of this encounter Procedures Procedure Name Priority Date/Time Associated Diagnosis Comments OUTSIDE IMAGING SCAN 07/27/2023 documented in this encounter Results * OUTSIDE IMAGING SCAN (07/27/2023) Anatomical Region Laterality Modality Other Narrative 07/27/2023 Ordered by an unspecified provider. us Generic Provider Scanning OUTSIDE SCAN Final Result documented in this encounter Visit Diagnoses Not on filedocumented in this encounter Care Teams Hearing Therapy Director Relationship Specialty Start Date End Date Raghav Mitchell DO [address] [place] [address] PCP - General 02/08/20 documented as of this encounter
--- OUTSIDE RECORDS SUMMARY | 2025-06-23 16:52 | XMS_ITS | Encounter Summary ---
Author Organization [facility] Address [address] [place] [address] Phone Care Team Providers Care Chain Mender Name Role Phone Raghav Mitchell DO Primary Care Provider [phone] Encounter Details Date Type Department Care Team (Late st Contact Info) Description 05/22/2019 Orders Only [facility] [address] [place] [address] Conversion, Onbase Social History Tobacco Use Types Packs/Day Years Used Date Smoking Tobacco: Never Assessed Comments Unknown Sex and Gender Information Value Date Recorded Sex Assigned at Not on file Legal Sex Female 10:39 AM EST Gender Identity Not on file Sexual Orientation Not on file documented as of this encounter Plan of Treatment Upcoming Encounters Date Type Department Care Team (Late st Contact Info) Description 07/14/2025 3:20 PM EDT Office Visit [facility] [address] [phone] Charmaine Tilley MD 703 [facility] 2, [address] [place], [place] [phone] Scheduled Orders Name Type Priority Associated Diagnoses Orde r Schedule OUTSIDE LAB SCAN Lab Ordered: 05/22/2019 OUTSIDE LAB SCAN Lab Ordered: 05/22/2019 documented as of this encounter Visit Diagnoses Not on filedocumented in this encounter Care Teams Chain Mender Relationship Specialty Start Date End Date Raghav Mitchell DO [address] [place] [address] PCP - General 02/08/20 documented as of this encounter
--- OUTSIDE RECORDS SUMMARY | 2025-06-23 16:52 | XMS_ITS | Encounter Summary ---
Author Organization [facility] Address [address] [place] [address] Phone Care Team Providers Care Inpatient Auditor Name Role Phone Raghav Mitchell DO Primary Care Provider [phone] Encounter Details Date Type Department Care Team (Late st Contact Info) Description 12/02/2024 Scanned Document [facility] [address] [place] [address] Scanning, Generic Provider Social History Tobacco Use Types Packs/Day Years Used Date Smoking Tobacco: Never Smokeless Tobacco: Never Alcohol Use Standard Drinks/Week Comments Never 0 (1 standard drink = 0.6 oz pur e alcohol) Comments Unknown Sex and Gender Information Value Date Recorded Sex Assigned at Not on file Legal Sex Female 10:39 AM EST Gender Identity Not on file Sexual Orientation Not on file COVID-19 Exposure Response Date Recorded In the last 10 days, have yo u been in contact with someone who was confirmed or suspected to have Coronavirus/COVID-19? No / Unsure 11/25/2024 2:33 PM EST documented as of this encounter Plan of Treatment Upcoming Encounters Date Type Department Care Team (Late st Contact Info) Description 07/14/2025 3:20 PM EDT Office Visit [place] [address] [facility] [address] [place] [address] Chamraine Tilley MD 703 [facility] 2, [address] [place] [address] documented as of this encounter Procedures Procedure Name Priority Date/Time Associated Diagnosis Comments OUTSIDE LAB SCAN 12/02/2024 documented in this encounter Results * OUTSIDE LAB SCAN (12/02/2024) Narrative 12/02/2024 Ordered by an unspecified provider. us Generic Provider Scanning OUTSIDE SCAN Final Result documented in this encounter Visit Diagnoses Not on filedocumented in this encounter Additional Health Concerns Assessment Noted Time A fall risk assessment has been complete d for the patient 11/25/2024 2:51 PM EST documented as of this encounter Care Teams Inpatient Auditor Relationship Specialty Start Date End Date Raghav Mitchell DO [address] [place] [address] PCP - General 02/08/20 documented as of this encounter
--- OUTSIDE RECORDS SUMMARY | 2025-06-23 16:52 | XMS_ITS | Encounter Summary ---
Author Organization [facility] Address [address] [place] [address] Care Team Providers Care Medical Chief Technician Name Role Phone Raghav Mitchell DO Unavailable [phone] Raghav Mitchell DO Primary Care Provider [phone] Charmaine Tilley MD Unavailable [phone] Porfirio Rubio DPM Unavailable [phone] Encounter Details Date Type Department Care Team (Late st Contact Info) Description 04/07/2025 Abstract [facility] [address] [facility] [address] [place] [address] Raghav Mitchell DO [address] [facility] 230 [place] [address] Social History Tobacco Use Types Packs/Day Years [...] week 09/07/2024 How often do you attend chur or moravian services? 1 to 4 times per year 09/07/2024 Do you belong to any clubs o r organizations such as orthodox groups, unions, fraternal or athletic groups, or [...] Date Recorded Patient Health Questionnaire-2 Score 0 02/08/2025 [facility] [place] of Occupat ional Health - Occupational Stress [...] place to sleep or slept in a long term (including now)? No 09/04/2023 Housing Stability Vital Sign Answer Brad e Recorded In the last 12 months, was t here a time when you were not able to pay the mortgage or rent on time? No 09/07/2024 In the past 12 months, how m any times have you moved where you were living? 0 09/07/2024 At any time in the past 12 m [facility], were you homeless or living in a long term (including now)? No 09/07/2024 Comments Unknown Sex [...] documented as of this encounter Care Teams Medical Chief Technician Relationship Specialty Start Date End Date Raghav Mitchell DO [address] [place] [address] PCP - ACO Reach 02/19/23 Raghav Mitchell DO [address] [place] [address] PCP - General Family Medicine 03/05/23 Charmaine Tilley MD 703 [facility] 2, [address] [place] [address] Referring Physician Cardiology 02/01/24 Porfirio Rubio DPM [address] [place] [address] Referring Physician Podiatry 02/01/24 documented as of this encounter
--- OUTSIDE RECORDS SUMMARY | 2025-06-23 16:52 | XMS_ITS | Encounter Summary ---
Author Organization [facility] Address [address] [place] [address] Care Team Providers Care Cyber Security Name Role Phone Raghav Mitchell DO Unavailable [phone] Raghav Mitchell DO Primary Care Provider Charmaine Tilley MD Unavailable [phone] Porfirio Rubio DPM Unavailable Encounter Details Date Type Department Care Team (Late st Contact Info) Description 02/23/2024 Orders Only [facility] [address] [facility] [address] [place] [address] Raghav Mitchell DO [address] [facility] [address] [place] [address] Social History Tobacco Use Types Packs/Day Years Used Date Smoking Tobacco: Never Passive Smoke Exposure: Never Smokeless Tobacco: Never Alcohol Use Standard Drinks/Week Comments Never 0 (1 standard drink = 0.6 oz pur e alcohol) Caffeine intake: none Humiliation, Afraid, Rape, and Kick questionnair e Answer Date Recorded Within the last year, have y ou been afraid of your partner or ex-partner? No 09/04/2023 Within the last year, have y ou been humiliated or emotionally abused in other ways by your partner or ex-partner? No Within the last year, have y ou been kicked, hit, slapped, or otherwise physically hurt by your partner or ex-partner? No 09/04/2023 Within the last year, have y ou been raped or forced to have any kind of sexual activity by your partner or ex-partner? No 09/04/2023 Social Connection and Isolat ion Panel [NHANES] Answer Date Recorded In a typical week, how many times do you talk on the phone with family, friends, or neighbors? Twice a week 09/04/2023 How often do you get togethe r with friends or relatives? More than three times a week 09/04/2023 How often do you attend chur or orthodox services? 1 to 4 times per year 09/04/2023 Do you belong to any clubs o r organizations such as scientologist groups, unions, fraternal or athletic groups, or school groups? No 09/04/2023 How often do you attend meet ings of the clubs or organizations you belong to? Never 09/04/2023 Are you , , di vorced, , never , or living with a partner? 09/04/2023 AUDIT-C Answer Date Recorded Q1: How often do you have a drink containing alcohol? Never 09/04/2023 Q2: How many drinks containi ng alcohol do you have on a typical day when you are drinking? Patient does not drink Q3: How often do you have si x or more drinks on one occasion? Never 09/04/2023 Overall Financial Resource Strain (CARDIA) Answe r Date Recorded How hard is it for you to pa y for the very basics like food, housing, medical care, and heating? Not very hard 09/04/2023 PHQ-2 Answer Date Recorded Patient Health Questionnaire-2 Score 0 02/01/2024 [facility] of Occupat ional Health - Occupational Stress Questionnaire Answer Date Recorded Do you feel stress - tense, restless, nervous, or anxious, or unable to sleep at night because your mind is troubled all the time - these days? To some extent 09/04/2023 Exercise Vital Sign Answer Date Recorde d On average, how many days pe r week do you engage in moderate to strenuous exercise (like a brisk walk)? 0 days 09/04/2023 On average, how many minutes do you engage in exercise at this level? 0 min 09/04/2023 Hunger Vital Sign Answer Date Recorded Within the past 12 months, y ou worried that your food would run out before you got the money to buy more. Never true 09/04/20 23 Within the past 12 months, t he food you bought just didn't last and you didn't have money to get more. Never true 09/04/2023 PRAPARE - Transportation Answer Date Re corded In the past 12 months, has l ack of transportation kept you from medical appointments or from getting medications? No 04/2023 In the past 12 months, has l ack of transportation kept you from meetings, work, or from getting things needed for daily living? No 09/04/2023 Housing Stability Vital Sign Answer [...] place to sleep or slept in a care home (including now)? No 09/04/2023 Comments Unknown Sex and Gender Information Value Date Recorded Sex Assigned at Not on file Legal Sex Female 6:43 PM EDT Gender Identity Not on file Sexual Orientation Not on file documented as of this encounter Plan of Treatment Not on file documented as of this encounter Procedures Procedure Name Priority Date/Time Associated Diagnosis Comments HEMOGLOBIN A1C Routine 02/20/2024 2:25 PM EDT documented in this encounter Results * Hemoglobin A1c (02/20/2024 2:25 PM EDT) Blood Venous blood specimen / Unknown us Raghav Mitchell DO LAB BLOOD ORDERABLES Final Resu lt documented in this encounter Visit Diagnoses Not on filedocumented in this encounter Additional Health Concerns Assessment Noted Time PHQ-9 Depression Total Score: 0 02/01/20 24 3:00 PM EDT A fall risk assessment has been complete d for the patient 09/04/2023 12:50 PM EST documented as of this encounter Care Teams Cyber Security Relationship Specialty Start Date End Date Raghav Mitchell DO [address] [place] [address] PCP - ACO Reach 02/19/23 Raghav Mitchell DO [address] [facility] 230 [place] [address] PCP - General Family Medicine 03/05/23 Charmaine Tilley MD 703 [facility] 2, [address] [place] [address] Referring Physician Cardiology 02/01/24 Porfirio Rubio DPM [address] [place] [address] Referring Physician Podiatry 02/01/24 documented as of this encounter
--- OUTSIDE RECORDS SUMMARY | 2025-06-23 16:52 | XMS_ITS ---
Author Organization [facility] Address [address] [place] [address] Care Team Providers Care Brick Sorter Name Role Phone Raghav Mitchell DO Unavailable [phone] Raghav Mitchell DO Primary Care Provider [phone] Charmaine Tilley MD Unavailable [phone] Porfirio Rubio DPM Unavailable [phone] Chronic Care Management (CCM) Status:Enrolled (Active) Start date:10/15/2017 Enrollment date:10/15/2017 Case Team Name Relationship Phone Rachel Rolon LPN(Responsible Staff) Clinical Advo shanta [phone] Continued Care and Services Coordination
--- OUTSIDE RECORDS SUMMARY | 2025-06-23 16:52 | XMS_ITS | Encounter Summary ---
Author Organization [facility] Address [address] [place] [address] Care Team Providers Care Collections Curator Name Role Phone Raghav Mitchell DO Unavailable [phone] Raghav Mitchell DO Primary Care Provider [phone] Charmaine Tilley MD Unavailable [phone] Porfirio Rubio DPM Unavailable [phone] Encounter Details Date Type Department Care Team (Late st Contact Info) Description 01/14/2024 Abstract [facility] [address] [facility] [address] [place] [address] Raghav Mitchell, [address] [facility] 230 [place] [address] Social History Tobacco Use Types Packs/Day Years [...] How often do you attend chur or uatsdin services? 1 to 4 times per year 09/04/2023 Do you belong to any clubs o r organizations such as uatsdin groups, unions, fraternal or athletic groups, or [...] Recorded Patient Health Questionnaire-2 Score 0 03/04/2023 [facility] of Occupat ional Health - Occupational Stress [...] money to buy more. Never true 09/04/20 Within the past 12 months, t he [...] place to sleep or slept in a fdc (including now)? No 09/04/2023 Comments Unknown Sex [...] documented as of this encounter Care Teams Collections Curator Relationship Specialty Start Date End Date Raghav Mitchell DO [address] [place] [address] PCP - ACO Reach 02/19/23 Raghav Mitchell DO [address] [place] [address] PCP - General Family Medicine 03/05/23 Charmaine Tilley MD 703 [facility] 2, [address] [place] [address] Referring Physician Cardiology 02/01/24 Porfirio Rubio DPM [address] [place] [address] Referring Physician Podiatry 02/01/24 documented as of this encounter
--- OUTSIDE RECORDS SUMMARY | 2025-06-23 16:52 | XMS_ITS | Encounter Summary ---
Author Organization [facility] Address [address] [place] [address] Phone Care Team Providers Care Bun Machine Operator Name Role Phone Raghav Mitchell DO Primary Care Provider [phone] Encounter Details Date Type Department Care Team (Late st Contact Info) Description 12/09/2021 Orders Only [facility] [address] [place] [address] Conversion, Onbase Social History Tobacco Use Types [...] Description 07/14/2025 3:20 PM EDT Office Visit [facility] [address] [phone] Charmaine Tilley MD 703 [facility] 2, [address] [place], [place] [phone] Scheduled Orders Name Type Priority Associated Diagnoses Orde r Schedule OUTSIDE LAB SCAN Lab Ordered: 12/09/2021 documented as of this encounter Visit Diagnoses Not on filedocumented in this encounter Care Teams Bun Machine Operator Relationship Specialty Start Date End Date Raghav Mitchell DO [address] [place] [address] PCP - General 02/08/20 documented as of this encounter
--- OUTSIDE RECORDS SUMMARY | 2025-06-23 16:52 | XMS_ITS | Encounter Summary ---
Author Organization [facility] Address [address] [place] [address] Care Team Providers Care Automation Controls Expert Name Role Phone Raghav Mitchell DO Unavailable [phone] Raghav Mitchell DO Primary Care Provider [phone] Charmaine Tilley MD Unavailable [phone] Porfirio Rubio DPM Unavailable [phone] Encounter Details Date Type Department Care Team (Late st Contact Info) Description 04/22/2024 Abstract [facility] [place] [facility] [address] [facility] [address] [place] [address] Raghav Mitchell DO [address] [facility] 230 [place] [address] Social History Tobacco Use Types Packs/Day Years [...] How often do you attend chur or temple services? 1 to 4 times per year 09/04/2023 Do you belong to any clubs o r organizations such as buddhist groups, unions, fraternal or athletic groups, or [...] Recorded Patient Health Questionnaire-2 Score 0 02/01/2024 [facility] of Occupat ional Health - [...] place to sleep or slept in a correction (including now)? No 09/04/2023 Comments Unknown Sex [...] documented as of this encounter Care Teams Automation Controls Expert Relationship Specialty Start Date End Date Raghav Mitchell DO [address] [place] [address] PCP - ACO Reach 02/19/23 Raghav Mitchell DO [address] [place] [address] PCP - General Family Medicine 03/05/23 Charmaine Tilley MD 708 [facility] [address], [address] [place] [address] Referring Physician Cardiology 02/01/24 Porfirio Rubio DPM [address] [place] [address] Referring Physician Podiatry 02/01/24 documented as of this encounter
--- OUTSIDE RECORDS SUMMARY | 2025-06-23 16:52 | XMS_ITS | Encounter Summary ---
Author Organization [facility] Address [address] [place] [address] Phone Care Team Providers Care Transmissions Systems Operator Name Role Phone Raghav Mitchell DO Primary Care Provider [phone] Encounter Details Date Type Department Care Team (Late st Contact Info) Description 06/06/2022 Orders Only [email or web address] [address] [place] [address] Conversion, Onbase Social History Tobacco Use Types [...] Description 07/14/2025 3:20 PM EDT Office Visit [facility] [address] [phone] Charamine Tilley MD 703 [facility] 2, [address] [place], [place] [phone] Scheduled Orders Name Type Priority Associated Diagnoses Orde r Schedule OUTSIDE LAB SCAN Lab Ordered: 06/06/2022 OUTSIDE LAB SCAN Lab Ordered: 06/06/2022 OUTSIDE LAB SCAN Lab Ordered: 06/06/2022 documented as of this encounter Visit Diagnoses Not on filedocumented in this encounter Care Teams Transmissions Systems Operator Relationship Specialty Start Date End Date Raghav Mitchell DO [address] [place] [address] PCP - General 02/08/20 documented as of this encounter
--- OUTSIDE RECORDS SUMMARY | 2025-06-23 16:52 | XMS_ITS | Clinical Summary ---
Author Organization [facility] Address [address] [place], [place] [address] Care Team Providers Care Staple Cutter Name Role Phone Jamin Berger Primary Care Provider [phone] Allergies Active Allergy Reactions Criticality Noted Date Comments Uri Inhibitors Other: See Comments 01/14/2019 Chlorthalidone Other: See Comments 01/14/2019 Codeine Other: See Comments 01/14/2019 Loperamide Hcl Shortness of Breath 12/31/2010 Loperamide Other: See Comments 01/14/2019 Nsaids (Non-Steroidal Anti-Inflammatory Drug) Intolerance 08/31/2012 Penicillin G Intolerance 12/31/2010 Sulfa (Sulfonamide Antibiotics) Intolerance 01/2011 Medications ELIQUIS 5 mg tab(s) Take 5 mg by mouth twice daily. 3 03/06/2019 Active flecainide (TAMBOCOR) 50 mg tablet Take 50 mg by mouth q 12 HR. 3 02/27/2019 Active irbesartan (AVAPRO) 150 mg tablet Take 150 mg by mouth twice daily. 3 01/10/2019 Active NIFEdipine ER (PROCARDIA XL) 30 mg 24 hr tablet Take 30 mg by mouth once daily. 5 02/14/2019 Active Active Problems Problem Noted Date Diagnosed Date Trigger finger (acquired) 08/31/2012 Overview (08/31/2012): left ring Social History Tobacco Use Types Packs/Day Years Used Date Smoking Tobacco: Never Assessed Area Deprivation Index Answer Date Doug rded National Score (1-100), lower number is lower ri sk Not on file 09/02/2020 State Score (1-10), lower number is lower risk N ot on file 09/02/2020 Data from: https://www.neighborhoodatlas.[facility]/. Last address used for calculation Not on file 09/02/2020 Comments Unknown Sex and Gender Information Value Date Recorded Sex Assigned at Not on file Legal Sex Female 8:35 AM EST Gender Identity Not on file Sexual Orientation Not on file Plan of Treatment Health Maintenance Due Date Last Done Comments Anxiety Screening 1959 Depression Screening 1958 DTaP,Tdap,Td Vaccine (1 - Tdap) 1960 Diabetes Screening 1986 Shingrix Vaccine (1 of 2) 1991 Bone Density Screening 2006 RSV Vaccine (1 - 1-dose 75+ series) 2016 Pneumococcal Vaccine: 50+ (2 of 2 - PCV20 or PCV21) 09/08/2016 Advance Directive Discussion 09/28/2024 Influenza Vaccine (#1) 2025 Insurance MEDICARE [id number] Care Teams Staple Cutter Relationship Specialty Start [place] [address] PCP - General Family Medicine 12/25/10
--- OUTSIDE RECORDS SUMMARY | 2025-06-23 16:52 | XMS_ITS | Encounter Summary ---
Author Organization [facility] Address [address] [place] [address] Care Team Providers Care Weigh Boss Name Role Phone Raghav Mitchell DO Unavailable [phone] Raghav Mitchell DO Primary Care Provider [phone] Charmaine Tilley MD Unavailable [phone] Porfirio Rubio DPM Unavailable [phone] Encounter Details Date Type Department Care Team (Late st Contact Info) Description 02/23/2024 Abstract [facility] [place] [facility] [address] [facility] [address] [place] [address] Raghav Mitchell, [address] [facility] 230 [place] [address] Social History Tobacco Use Types Packs/Day Years [...] How often do you attend chur or evangelical services? 1 to 4 times per year 09/04/2023 Do you belong to any clubs o r organizations such as samaritan groups, unions, fraternal or athletic groups, or [...] Recorded Patient Health Questionnaire-2 Score 0 02/01/2024 [facility] of Occupat ional Health - Occupational [...] place to sleep or slept in a prison (including now)? No 09/04/2023 Comments Unknown Sex [...] documented as of this encounter Care Teams Weigh Boss Relationship Specialty Start Date End Date Raghav Mitchell DO [address] [place] [address] PCP - ACO Reach 02/19/23 Raghav Mitchell DO [address] [place] [address] PCP - General Family Medicine 03/05/23 Charmaine Tilley MD [address] [facility] [address], [address] [place] [address] Referring Physician Cardiology 02/01/24 Porfirio Rubio DPM [address] [place] [address] Referring Physician Podiatry 02/01/24 documented as of this encounter
--- OUTSIDE RECORDS SUMMARY | 2025-06-23 16:52 | XMS_ITS | Encounter Summary ---
Author Organization [facility] Address [address] [place] [address] Care Team Providers Care Car Jockey Name Role Phone Raghav Mitchell DO Unavailable [phone] Raghav Mitchell DO Primary Care Provider [phone] Charmaine Tilley MD Unavailable [phone] Porfirio Rubio DPM Unavailable Encounter Details Date Type Department Care Team (Late st Contact Info) Description 01/14/2024 Abstract [facility] [address] [facility] [address] [place] [address] Raghav Mitchell, [address] [facility] 230 [place] [address] Social History Tobacco Use Types Packs/Day Years [...] How often do you attend chur or methodist services? 1 to 4 times per year 09/04/2023 Do you belong to any clubs o r organizations such as faith groups, unions, fraternal or athletic groups, or [...] Recorded Patient Health Questionnaire-2 Score 0 03/04/2023 [facility] of Occupat ional Health - Occupational Stress [...] place to sleep or slept in a half-way (including now)? No 09/04/2023 Comments Unknown Sex [...] documented as of this encounter Care Teams Car Jockey Relationship Specialty Start Date End Date Raghav Mitchell DO [address] [place] [address] PCP - ACO Reach 02/19/23 Raghav Mitchell DO [address] [place] [address] PCP - General Family Medicine 03/05/23 Charmaine Tilley MD 703 [facility] 2, [address] [place] [address] Referring Physician Cardiology 02/01/24 Porfirio Rubio DPM [address] [place] [address] Referring Physician Podiatry 02/01/24 documented as of this encounter
--- OUTSIDE RECORDS SUMMARY | 2025-06-23 16:52 | XMS_ITS | Encounter Summary ---
Author Organization [facility] Address [address] [place] [address] Care Team Providers Care Measurement Technician Name Role Phone Raghav Mitchell DO Unavailable [phone] Raghav Mitchell DO Primary Care Provider [phone] Charmaine Tilley MD Unavailable [phone] Porfirio Rubio DPM Unavailable [phone] Encounter Details Date Type Department Care Team (Late st Contact Info) Description 02/23/2024 Abstract [facility] [place] [facility] [address] [facility] [address] [place] [address] Raghav Mitchell, [address] [facility] 230 [place] [address] Social History Tobacco Use Types Packs/Day Years [...] How often do you attend chur or hoahaoism services? 1 to 4 times per year 09/04/2023 Do you belong to any clubs o r organizations such as islam groups, unions, fraternal or athletic groups, or [...] Recorded Patient Health Questionnaire-2 Score 0 02/01/2024 [facility] of Occupat ional Health - Occupational [...] place to sleep or slept in a intermediate (including now)? No 09/04/2023 Comments Unknown Sex [...] documented as of this encounter Care Teams Measurement Technician Relationship Specialty Start Date End Date Raghav Mitchell DO [address] [place] [address] PCP - ACO Reach 02/19/23 Raghav Mitchell DO [address] [place] [address] PCP - General Family Medicine 03/05/23 Charmaine Tilley MD [address] [facility] [address], [address] [place] [address] Referring Physician Cardiology 02/01/24 Porfirio Rubio DPM [address] [place] [address] Referring Physician Podiatry 02/01/24 documented as of this encounter
--- OUTSIDE RECORDS SUMMARY | 2025-06-23 16:52 | XMS_ITS | Encounter Summary ---
Author Organization [facility] Address [address] [place] [address] Care Team Providers Care Cyber Incident Responder Name Role Phone Raghav Mitchell DO Unavailable [phone] Raghav Mitchell DO Primary Care Provider [phone] Charmaine Tilley MD Unavailable [phone] Porfirio Rubio DPM Unavailable [phone] Encounter Details Date Type Department Care Team (Late st Contact Info) Description 04/04/2025 Abstract [facility] [address] [facility] [address] [place] [address] Raghav Mitchell DO [address] [facility] 230 [place] [address] Social History Tobacco Use Types Packs/Day Years [...] How often do you attend chur or confucianist services? 1 to 4 times per year 09/07/2024 Do you belong to any clubs o r organizations such as anabaptist groups, unions, fraternal or athletic groups, or [...] Recorded Patient Health Questionnaire-2 Score 0 02/08/2025 [facility] [place] of Occupat ional Health - Occupational Stress [...] place to sleep or slept in a halfway (including now)? No 09/04/2023 Housing Stability Vital Sign Answer Brad e Recorded In the last 12 months, was t here a time when you were not able to pay the mortgage or rent on time? No 09/07/2024 In the past 12 months, how m any times have you moved where you were living? 0 09/07/2024 At any time in the past 12 m [facility], were you homeless or living in a halfway (including now)? No 09/07/2024 Comments Unknown Sex [...] as of this encounter Care Teams Cyber Incident Responder Relationship Specialty Start Date End Date Raghav Mitchell DO [address] [place] [address] PCP - ACO Reach 02/19/23 Raghav Mitchell DO [address] [place] [address] PCP - General Family Medicine 03/05/23 Charmaine Tilley MD 703 [facility] 2, [address] [place] [address] Referring Physician Cardiology 02/01/24 Porfirio Rubio DPM [address] [place] [address] Referring Physician Podiatry 02/01/24 documented as of this encounter
--- OUTSIDE RECORDS SUMMARY | 2025-06-23 16:52 | XMS_ITS | Encounter Summary ---
Author Organization [facility] Address [address] [place] [address] Care Team Providers Care Hand Bunch Maker Name Role Phone Raghav Mitchell DO Unavailable Raghav Mitchell DO Primary Care Provider [phone] Charmaine Tilley MD Unavailable [phone] Porfirio Rubio DPM Unavailable [phone] Encounter Details Date Type Department Care Team (Latest Contact Info) Description 06/09/2025 Travel Social History Tobacco Use Types Packs/Day Years [...] 09/07/2024 How often do you attend chur ch or anabaptism services? 1 to 4 times per year 09/07/2024 Do you belong to any clubs o r organizations such as orthodoxy groups, unions, fraternal or athletic groups, or [...] Recorded Patient Health Questionnaire-2 Score 0 06/09/2025 [facility] Questionnaire Answer Date Recorded [...] place to sleep or slept in a fpc (including now)? No 09/04/2023 Housing Stability Vital Sign Answer Brad e Recorded In the last 12 months, was t here a time when you were not able to pay the mortgage or rent on time? No 09/07/2024 In the past 12 months, how m any times have you moved where you were living? 0 09/07/2024 At any time in the past 12 m [facility], were you homeless or living in a fpc (including now)? No 09/07/2024 Comments Unknown Sex and Gender Information Value Date Recorded Sex Assigned at Not on file Legal Sex Female 6:43 PM EDT Gender Identity Not on file Sexual Orientation Not on file documented as of this encounter Functional Status * Over the [...] documented as of this encounter Care Teams Hand Bunch Maker Relationship Specialty Start Date End Date Raghav Mitchell DO [address] [place] [address] PCP - ACO Reach 02/19/23 Raghav Mitchell DO [address] [place] [address] PCP - General Family Medicine 03/05/23 Charmaine Tilley MD 703 [facility] 2, [address] [place] [address] Referring Physician Cardiology 02/01/24 Porfirio Rubio DPM [address] [place] [address] Referring Physician Podiatry 02/01/24 documented as of this encounter
--- OUTSIDE RECORDS SUMMARY | 2025-06-23 16:52 | XMS_ITS | Encounter Summary ---
Author Organization [facility] Address [address] [place] [address] Care Team Providers Care Business Asst Name Role Phone Raghav Mitchell DO Unavailable [phone] Raghav Mitchell DO Primary Care Provider [phone] Charmaine Tilley MD Unavailable [phone] Porfiiro Rubio DPM Unavailable [phone] Encounter Details Date Type Department Care Team (Late st Contact Info) Description 04/10/2025 Abstract [facility] [address] [facility] [address] [place] [address] Raghav Mitchell DO [address] [facility] 230 [place] [address] Social History Tobacco Use Types Packs/Day Years [...] How often do you attend chur or sabianist services? 1 to 4 times per year 09/07/2024 Do you belong to any clubs o r organizations such as congregation groups, unions, fraternal or athletic groups, or [...] Recorded Patient Health Questionnaire-2 Score 0 02/08/2025 [facility] [place] of Occupat ional Health - Occupational Stress [...] place to sleep or slept in a retirement (including now)? No 09/04/2023 Housing Stability Vital Sign Answer Brad e Recorded In the last 12 months, was t here a time when you were not able to pay the mortgage or rent on time? No 09/07/2024 In the past 12 months, how m any times have you moved where you were living? 0 09/07/2024 At any time in the past 12 m [facility], were you homeless or living in a retirement (including now)? No 09/07/2024 Comments Unknown Sex [...] documented as of this encounter Care Teams Business Asst Relationship Specialty Start Date End Date Raghav Mitchell DO [address] [place] [address] PCP - ACO Reach 02/19/23 Raghav Mitchell DO [address] [place] [address] PCP - General Family Medicine 03/05/23 Charmaine Tilley MD 703 [facility] 2, [address] [place] [address] Referring Physician Cardiology 02/01/24 Porfirio Rubio DPM [address] [place] [address] Referring Physician Podiatry 02/01/24 documented as of this encounter
--- OUTSIDE RECORDS SUMMARY | 2025-06-23 16:52 | XMS_ITS | Encounter Summary ---
Author Organization [facility] Address [address] [place] [address] Phone Care Team Providers Care Back Filler Operator Name Role Phone Raghav Mitchell DO Primary Care Provider [phone] Encounter Details Date Type Department Care Team (Late st Contact Info) Description 04/01/2019 Orders Only [facility] [address] [place] [address] Conversion, Onbase Social History Tobacco Use Types [...] Description 07/14/2025 3:20 PM EDT Office Visit [facility] [address] [phone] Charmaine Tilley MD 703 [facility] 2, [address] [place] [address] Scheduled Orders Name Type Priority Associated Diagnoses Orde r Schedule OUTSIDE LAB SCAN Lab Ordered: 04/01/2019 documented as of this encounter Visit Diagnoses Not on filedocumented in this encounter Care Teams Back Filler Operator Relationship Specialty Start Date End Date Raghav Mitchell DO [address] [place] [address] PCP - General 02/08/20 documented as of this encounter
--- OUTSIDE RECORDS SUMMARY | 2025-06-23 16:52 | XMS_ITS | Encounter Summary ---
Author Organization [facility] Address [address] [place] [address] Phone Care Team Providers Care Metal Bending Machine Operator Name Role Phone Raghav Mitchell DO Primary Care Provider [phone] Encounter Details Date Type Department Care Team (Late st Contact Info) Description 09/01/2023 Scanned Document [facility] [address] [place] [address] Scanning, Generic Provider Social History [...] suspected to have Coronavirus/COVID-19? No / Unsure 08/18/2023 8:17 AM EST documented as of this encounter Plan of Treatment Upcoming Encounters Date Type Department Care Team (Late st Contact Info) Description 07/14/2025 3:20 PM EDT Office Visit [facility] 703 [facility] [address] [place] [address] Charmaine Tilley MD [address] [facility] [address], [address] [place] [address] documented as of this encounter Procedures Procedure Name Priority Date/Time Associated Diagnosis Comments OUTSIDE IMAGING SCAN 09/01/2023 ELECTROCARDIOGRAM 12 LEAD 09/01/2023 documented in this encounter Results * OUTSIDE IMAGING SCAN (09/01/2023) Anatomical Region Laterality Modality Other Narrative 09/01/2023 Ordered by an unspecified provider. us Generic Provider Scanning OUTSIDE SCAN Final Result * ELECTROCARDIOGRAM (09/01/2023) Narrative 09/01/2023 Ordered by an unspecified provider. us Generic Provider Scanning ECG ORDERABLES Final Result documented in this encounter Visit Diagnoses Not on filedocumented in this encounter Care Teams Metal Bending Machine Operator Relationship Specialty Start Date End Date Raghav Mitchell DO [address] [place] [address] PCP - General 02/08/20 documented as of this encounter
--- OUTSIDE RECORDS SUMMARY | 2025-06-23 16:52 | XMS_ITS | Encounter Summary ---
Author Organization [facility] Address [address] [place] [address] Phone Care Team Providers Care Acid Pumper Name Role Phone Raghav Mitchell DO Primary Care Provider [phone] Encounter Details Date Type Department Care Team (Late st Contact Info) Description 03/19/2023 Orders Only [facility] [address] [place] [address] Conversion, Onbase Social History Tobacco Use Types [...] Description 07/14/2025 3:20 PM EDT Office Visit [facility] [address] [phone] Charmaine Tilley MD 703 [facility] 2, [address] [place], [place] [address] Scheduled Orders Name Type Priority Associated Diagnoses Orde r Schedule OUTSIDE LAB SCAN Lab Ordered: 03/19/2023 documented as of this encounter Visit Diagnoses Not on filedocumented in this encounter Care Teams Acid Pumper Relationship Specialty Start Date End Date Raghav Mitchell DO [address] [place] [address] PCP - General 02/08/20 documented as of this encounter
--- OUTSIDE RECORDS SUMMARY | 2025-06-23 16:52 | XMS_ITS | Encounter Summary ---
Author Organization [facility] Address [address] [place] [address] Care Team Providers Care Engineering Executive Name Role Phone Raghav Mitchell DO Unavailable [phone] Raghav Mitchell DO Primary Care Provider [phone] Charmaine Tilley MD Unavailable [phone] Porfirio Ruboi DPM Unavailable [phone] Encounter Details Date Type Department Care Team (Late st Contact Info) Description 04/18/2025 Abstract [facility] [address] [facility] [address] [place] [address] Raghav Mitchell DO [address] [facility] 230 [place] [address] Social History Tobacco Use Types Packs/Day Years [...] How often do you attend chur or synagogue services? 1 to 4 times per year 09/07/2024 Do you belong to any clubs o r organizations such as jehovah's witness groups, unions, fraternal or athletic groups, or [...] Recorded Patient Health Questionnaire-2 Score 0 02/08/2025 [facility] [place] of Occupat ional Health - Occupational Stress [...] in a correction (including now)? No 09/04/2023 Housing Stability Vital Sign Answer Brad e Recorded In the last 12 months, was t here a time when you were not able to pay the mortgage or rent on time? No 09/07/2024 In the past 12 months, how m any times have you moved where you were living? 0 09/07/2024 At any time in the past 12 m [facility], were you homeless or living in a correction (including now)? No 09/07/2024 Comments Unknown Sex [...] documented as of this encounter Care Teams Engineering Executive Relationship Specialty Start Date End Date Raghav Mitchell DO [address] [place] [address] PCP - ACO Reach 02/19/23 Raghav Mitchell DO [address] [place] [address] PCP - General Family Medicine 03/05/23 Charmaine Tilley MD 703 [facility] 2, [address] [place] [address] Referring Physician Cardiology 02/01/24 Porfirio Rubio DPM [address] [place] [address] Referring Physician Podiatry 02/01/24 documented as of this encounter
--- OUTSIDE RECORDS SUMMARY | 2025-06-23 16:52 | XMS_ITS | Encounter Summary ---
Author Organization [facility] Address [address] [place] [address] Care Team Providers Care Comb Setter Name Role Phone Raghav Mitchell DO Unavailable [phone] Raghav Mitchell DO Primary Care Provider Charmaine Tilley MD Unavailable [phone] Porfirio Rubio DPM Unavailable [phone] Encounter Details Date Type Department Care Team (Late st Contact Info) Description 04/03/2025 Abstract [facility] [address] [facility] [address] [place] [address] Raghav Mitchell DO [address] [facility] 230 [place] [address] Social History Tobacco Use Types Packs/Day Years [...] How often do you attend chur or roman catholic services? 1 to 4 times per year 09/07/2024 Do you belong to any clubs o r organizations such as jainism groups, unions, fraternal or athletic groups, or [...] Recorded Patient Health Questionnaire-2 Score 0 02/08/2025 [facility] [place] of Occupat ional Health - Occupational Stress [...] time in the past 12 m [facility], were you homeless or living in [...] documented as of this encounter Care Teams Comb Setter Relationship Specialty Start Date End Date Raghav Mitchell DO [address] [place] [address] PCP - ACO Reach 02/19/23 Raghav Mitchell DO [address] [place] [address] PCP - General Family Medicine 03/05/23 Charmaine Tilley MD 7[address] [facility] 2, [address] [place] [address] Referring Physician Cardiology 02/01/24 Porfirio Rubio DPM [address] [place] [address] Referring Physician Podiatry 02/01/24 documented as of this encounter
--- OUTSIDE RECORDS SUMMARY | 2025-06-23 16:52 | XMS_ITS | Encounter Summary ---
Author Organization [facility] Address [address] [place] [address] Care Team Providers Care Postpartum Nurse Name Role Phone Raghav Mitchell DO Unavailable [phone] Raghav Mitchell DO Primary Care Provider Charmaine Tilley MD Unavailable [phone] Porfirio Rubio DPM Unavailable [phone] Encounter Details Date Type Department Care Team (Late st Contact Info) Description 05/26/2025 Abstract [facility] [address] [facility] [address] [place] [address] Raghav Mitchell DO [address] [facility] 230 [place] [address] Social History Tobacco Use Types Packs/Day Years [...] How often do you attend chur or yazidism services? 1 to 4 times per year 09/07/2024 Do you belong to any clubs o r organizations such as yarsanism groups, unions, fraternal or athletic groups, or [...] Date Recorded Patient Health Questionnaire-2 Score 0 04/27/2025 [facility] [place] of Occupat ional Health - Occupational Stress [...] place to sleep or slept in a longterm (including now)? No 09/04/2023 Housing Stability Vital Sign Answer Brad e Recorded In the last 12 months, was t here a time when you were not able to pay the mortgage or rent on time? No 09/07/2024 In the past 12 months, how m any times have you moved where you were living? 0 09/07/2024 At any time in the past 12 m [facility], were you homeless or living in a longterm (including now)? No 09/07/2024 Comments Unknown Sex [...] documented as of this encounter Care Teams Postpartum Nurse Relationship Specialty Start Date End Date Raghav Mitchell DO [address] [place] [address] PCP - ACO Reach 02/19/23 Raghav Mitchell DO [address] [place] [address] PCP - General Family Medicine 03/05/23 Charmaine Tilley MD 703 [facility] 2, [address] [place] [address] Referring Physician Cardiology 02/01/24 Porfirio Rubio DPM [address] [place] [address] Referring Physician Podiatry 02/01/24 documented as of this encounter
--- OUTSIDE RECORDS SUMMARY | 2025-06-23 16:52 | XMS_ITS | Encounter Summary ---
Author Organization [facility] Address [address] [place] [address] Phone Care Team Providers Care Engine Head Repairer Name Role Phone Raghav Mitchell DO Primary Care Provider [phone] Encounter Details Date Type Department Care Team (Late st Contact Info) Description 2021 Orders Only [facility] [address] [place] [address] Conversion, Onbase Social History Tobacco Use Types [...] Description 07/14/2025 3:20 PM EDT Office Visit [facility] [address] [phone] Charmaine Tilley MD 703 [facility] 2, [address] [place], [place] [phone] Scheduled Orders Name Type Priority Associated Diagnoses Orde r Schedule OUTSIDE LAB SCAN Lab Ordered: 2021 documented as of this encounter Visit Diagnoses Not on filedocumented in this encounter Care Teams Engine Head Repairer Relationship Specialty Start Date End Date Raghav Mitchell DO [address] [place] [address] PCP - General 02/08/20 documented as of this encounter
--- OUTSIDE RECORDS SUMMARY | 2025-06-23 16:52 | XMS_ITS | Encounter Summary ---
Author Organization [facility] Address [address] [place] [address] Phone Care Team Providers Care Environmental Sampler Name Role Phone Raghav Mitchell Primary Care Provider [phone] Encounter Details Date Type Department Care Team (Late st Contact Info) Description 07/20/2023 Scanned Document [facility] [address] [place] [phone] Scanning, Generic Provider Social History Tobacco Use [...] AM EDT documented as of this encounter Functional Status * Question Answer Date of Assessment Author BP 138/72 07/23/2023 10:20 AM EDT Natasha Quiroz CMA Pulse 80 07/23/2023 10:20 AM EDT Natasha Quiroz CMA * Communicable Disease Screening Question Answer Date of Assessment Author Do you have any of the follo wing new or worsening symptoms? None of these 07/23/2023 9:55 AM EDT Barrington Ely documented as of this encounter Plan of Treatment Upcoming Encounters Date Type Department Care Team (Late st Contact Info) Description 07/14/2025 3:20 PM EDT Office Visit [facility] [address] [phone] Charmaine Tilley MD 703 [facility] 2, [address] [place] [address] documented as of this encounter Visit Diagnoses Not on filedocumented in this encounter Care Teams Environmental Sampler Relationship Specialty Start Date End Date Raghav Mitchell DO [address] [place] [address] PCP - General 02/08/20 documented as of this encounter
--- OUTSIDE RECORDS SUMMARY | 2025-06-23 16:53 | XMS_ITS | Clinical Summary ---
Author Organization [facility] Address [address] [place] [address] Phone Care Team Providers Care Starch Factory Laborer Name Role Phone Raghav Mitchell DO Primary Care Provider [phone] Allergies Active Allergy Reactions Criticality Noted Date Comments Uri Inhibitors Cough Low 07/09/2023 Amlodipine Unknown Low 07/09/2023 Chlorthalidone Myalgia Low 07/09/2023 Codeine Nausea Only Low 07/09/2023 Doxycycline Diarrhea,GI intolerance High 09/30/2024 Hydrochlorothiazide Unknown Low 07/09/2023 Loperamide Nausea Only Low 07/09/2023 Nifedipine Palpitations Low 07/09/2023 Penicillins Unknown Low 07/09/2023 Sulfamethoxazole Unknown Low 07/09/2023 Nausea Medications cloNIDine (Catapres) 0.1 mg tabletIndication s:Essential hypertension, benign Take 1 tablet (0.1 mg) by mouth if needed for high blood pressure (Take for readings above 160, repeat in 1 hour). 60 tablet 11 3 Active hyoscyamine (Anaspaz, Levsin) 0.125 mg tablet Take 1 tablet (0.125 mg) by mouth every 6 hours if needed for cramping (abdominal pain). Active spironolactone (Aldactone) 50 mg tabletIndication s:Essential (primary) hypertension Take 1 tablet (50 mg) by mouth once daily. 90 tablet 3 5 11/04/19 26 Active metoprolol tartrate (Lopressor) 25 mg tabletIndication s:Paroxysmal atrial fibrillation (Multi) Take 1 tablet (25 mg) by mouth once daily as needed (take 1 tablet by mouth as needed for break thru a-fib) for up to 40 doses. TAKE 1 TABLET BY MOUTH NEEDED for break thru a- fib. Not to exceed one tablet daily. 20 tablet 1 5 Active flecainide (Tambocor) 50 mg tabletIndication s:Paroxysmal atrial fibrillation (Multi) Take 1 tablet (50 mg) by mouth 2 times a day. 180 tablet 3 5 02/15/20 26 Active irbesartan (Avapro) 150 mg tabletIndication s:Essential (primary) hypertension Take 1 tablet (150 mg) by mouth 2 times a day. 180 tablet 3 5 03/14/20 26 Active hydrALAZINE (Apresoline) 50 mg tabletIndication s:Essential (primary) hypertension Take 1 tablet (50 mg) by mouth 3 times a day. 270 tablet 3 5 03/27/20 26 Active Eliquis 5 mg tabletIndication s:Paroxysmal atrial fibrillation (Multi) Take 1 tablet (5 mg) by mouth 2 times a day. 180 tablet 3 05/30/2025 7:49 PM EDT 5 05/30/20 26 Active Eliquis 5 mg tabletIndication s:Paroxysmal atrial fibrillation (Multi) Take 1 tablet (5 mg) by mouth 2 times a day. 180 tablet 3 4 05/30/20 25 Discontinu ed(Reorder ) Active Problems Problem Noted Date Diagnosed Date BMI 33.0-33.9,adult 04/13/2024 Anemia 04/13/2024 Never smoked any substance 09/18/2023 Diverticulitis, colon 07/09/2023 Essential (primary) hypertension 07/09/2023 Paroxysmal atrial fibrillation (Multi) 3 Right bundle branch block (RBBB) on electrocardi ography 07/09/2023 Anticoagulated 07/09/2023 Resolved Problems Problem Noted Date Diagnosed Date Resolved Date Class 1 obesity with body ma ss index (BMI) of 34.0 to 34.9 in adult 07/09/2023 09/18/2023 Encounters Date Type Department Care Team Description 05/30/2025 Refill [facility] 703 [facility] [address] [place] [address] Beatriz Knox RN Paroxysmal atrial fibrillation (Multi) 03/27/2025 3:00 PM EDT Office Visit [address] [address] Charmaine Tilley MD Essential (primary) hypertension; Never smoked any substance; BMI 33.0-33.9,adult 03/27/2025 Travel 03/24/[address] [address] Radha Will LPN Medical Advice/Question from Last 3 Months Immunizations Immunization Administration Dates Next Due DTP 01/14/2022 Pneumococcal conjugate vaccine, 13-valent (PREVN AR 13) 09/08/2016 Tdap vaccine, age 7 year and older (BOOSTRIX, AD ACEL) 01/14/2022 Family History Medical History Relation Name Comments Heart attack Father Heart failure Mother Cardiac disorder Sister Relation Name Status Comments Father Mother Sister Social History Tobacco Use Types Packs/Day Years Used Date Smoking Tobacco: Never Smokeless Tobacco: Never Tobacco Cessation:Counseling Given: Not Answered Alcohol Use Standard Drinks/Week Comments Never 0 (1 standard drink = 0.6 oz pur e alcohol) Comments Unknown Sex and Gender Information Value Date Recorded Sex Assigned at Not on file Legal Sex Female 10:39 AM EST Gender Identity Not on file Sexual Orientation Not on file Last Filed Vital Signs Vital Sign Reading Time Taken Comments Blood Pressure 108/52 03/27/2025 3:09 PM EDT Pulse 54 03/27/2025 3:00 PM EDT Temperature - - Respiratory Rate - - Oxygen Saturation - - Inhaled Oxygen Concentration - - Weight 85.7 kg (189 lb) 03/27/2025 3:00 PM EDT Height 160 cm (5' 3 ) 03/27/2025 3:00 PM EDT Body Mass Index 33.48 03/27/2025 3:00 PM EDT Plan of Treatment Upcoming Encounters Date Type Department Care Team ([facility] st Contact Info) Description 07/14/2025 3:20 PM EDT Office Visit [address] [address] Charmaine Tilley MD [address] [place] [address] 2, [address] [place] [address] Health Maintenance Due Date Last Done Comments Lipid Panel 1941 Diabetes Screening 1959 Zoster Vaccines (1 of 2) 1991 Bone Density Scan 2006 RSV High Risk: (Elderly (60+) or Population) (1 - 1-dose 75+ series) 2016 Pneumococcal Vaccine (2 of 2 - PCV20 or PCV21) 09/08/2017 09/08/2016 COVID-19 Vaccine (1 - season) 2025 Influenza Vaccine (#1) 2025 Medicare Annual Wellness Visit (AWV) 02/09/2026 02/08/2025, 02/01/2024, 01/26/2023, Additional history exists DTaP/Tdap/Td Vaccines (3 - Td or Tdap) 01/15/2032 01/14/2022, 01/14/2022 HIB Vaccines Aged Out No longer eligi ble based on patient's age to complete this topic HPV Vaccines Aged Out No longer eligi ble based on patient's age to complete this topic Hepatitis A Vaccines Aged Out No long er eligible based on patient's age to complete this topic Hepatitis B Vaccines Aged Out No long er eligible based on patient's age to complete this topic IPV Vaccines Aged Out No longer eligi ble based on patient's age to complete this topic Meningococcal Vaccine Aged Out No barbara michael eligible based on patient's age to complete this topic Rotavirus Vaccines Aged Out No longer eligible based on patient's age to complete this topic Insurance MEDICARE PART A AND B [facility] MEDICARE SUPPLEMENT Care Teams Starch Factory Laborer Relationship Specialty Start Date End Date Raghav Mitchell DO [address] [place] [address] PCP - General 02/08/20
--- OUTSIDE RECORDS SUMMARY | 2025-06-23 16:53 | XMS_ITS | Encounter Summary ---
Author Organization [facility] Address [address] [place] [address] Care Team Providers Care Coat Ironer Hand Name Role Phone Raghav Mitchell DO Unavailable [phone] Raghav Mitchell DO Primary Care Provider [phone] Charmaine Tilley MD Unavailable [phone] Porfirio Rubio DPM Unavailable [phone] Encounter Details Date Type Department Care Team (Late st Contact Info) Description 06/15/2025 Patient Outreach [facility] [address] [place] [address] Rachel Rolon LPN [address] [facility] [address] [place] [address] Social History Tobacco Use Types Packs/Day Years [...] How often do you attend chur or worship services? 1 to 4 times per year 09/07/2024 Do you belong to any clubs o r organizations such as spiritism groups, unions, fraternal or athletic groups, or [...] Recorded Patient Health Questionnaire-2 Score 0 06/09/2025 [facility] of Occupat ional Health - Occupational Stress [...] place to sleep or slept in a nursing home (including now)? No 09/04/2023 Housing Stability Vital Sign Answer Brad e Recorded In the last 12 months, was t here a time when you were not able to pay the mortgage or rent on time? No 09/07/2024 In the past 12 months, how m any times have you moved where you were living? 0 09/07/2024 At any time in the past [address] [facility], were you homeless or living in a nursing home (including now)? No 09/07/2024 Comments Unknown Sex and Gender Information Value Date Recorded Sex Assigned at Not on file Legal Sex Female 6:43 PM EDT Gender Identity Not on file Sexual Orientation Not on file documented as of this encounter Progress Notes * Rachel Rolon LPN - 06/15/2025 11:36 AM EDT <June 15, 2025, 11:54 - Rachel Rolon LPN> Chart reviewed, call to pt for CCM phone monitor. Pt doing well, she states that PT was completed on 06/12 and home health RN visits completed yesterday, 06/14. Pt states that she does continue to have some soreness to left side of rib cage, not pain really,just sore. Pt does have some left hip pain, she states that PCP advised her that this may be exacerbation of arthritic pain. Pt has intermittent right ankle pain related to history of ruptured tendonin right ankle. Pt states that it flares up from time to time. Pt is using straight cane with ambulation as needed. Pt states that BP has been good. Average readings are 120-130/60s most of the time, HR usually [id number] most days. Pt states that she has stopped worrying so much about her BP. Pt's daughter lives with her, her son also visits every few weeks. Pt gets out for short trips 1-2 times weekly. She has no acute concerns at this time. No medication changes noted, encouraged to call if any changes, questions or concerns. documented in this encounter Plan of Treatment Not on file documented as of this encounter Visit Diagnoses Diagnosis Benign essential hypertension- Primary Essential hypertension, benign Atrial fibrillation, unspecified type (HCC) documented in this encounter Additional Health Concerns Assessment Noted Time PHQ-9 Depression Total Score: 0 02/09/20 25 4:01 PM EDT A fall risk assessment has been complete d for the patient 09/07/2024 10:29 AM EST documented as of this encounter Care Teams Coat Ironer Hand Relationship Specialty Start Date End Date Raghav Mitchell DO [address] [place] [address] PCP - ACO Reach 02/19/23 Raghav Mitchell DO [address] [place] [address] PCP - General Family Medicine 03/05/23 Charmaine Tilley MD 703 [facility] 2, [address] [place] [address] Referring Physician Cardiology 02/01/24 Porfirio Rubio DPM [address] [place] [address] Referring Physician Podiatry 02/01/24 documented as of this encounter
--- OUTSIDE RECORDS SUMMARY | 2025-06-23 16:53 | XMS_ITS | Encounter Summary ---
Author Organization [facility] Address [address] [place] [address] Care Team Providers Care Pantry Goods Maker Name Role Phone Raghav Mitchell DO Unavailable [phone] Raghav Mitchell DO Primary Care Provider [phone] Charmaine Tilley MD Unavailable [phone] Porfirio Rubio DPM Unavailable [phone] Encounter Details Date Type Department Care Team (Late st Contact Info) Description 06/09/2025 Bamboo flowsheet [facility] [address] [facility] [address] [place] [address] Raghav Mitchell DO [address] [facility] [address] [place] [address] Social History Tobacco Use Types Packs/Day Years [...] How often do you attend chur or muslim services? 1 to 4 times per year 09/07/2024 Do you belong to any clubs o r organizations such as congregational groups, unions, fraternal or athletic groups, or [...] Recorded Patient Health Questionnaire-2 Score 0 06/09/2025 [facility] of Occupat ional Health - Occupational Stress [...] any time in the past 12 m [facility], were you homeless or living in [...] documented as of this encounter Care Teams Pantry Goods Maker Relationship Specialty Start Date End Date Raghav Mitchell DO [address] [place] [address] PCP - ACO Reach 02/19/23 Raghav Mitchell DO [address] [place] [address] PCP - General Family Medicine 03/05/23 Ch[facility]illey MD [facility]03 [facility] 2, [address] [place] [address] Referring Physician Cardiology 02/01/24 Porfirio Rubio DPM [address] [place] [address] Referring Physician Podiatry 02/01/24 documented as of this encounter
--- OUTSIDE RECORDS SUMMARY | 2025-06-23 16:53 | XMS_ITS | Clinical Summary ---
Author Organization [facility] Address [address] [place] [address] Care Team Providers Care Frit Maker Name Role Phone Raghav Mitchell DO Unavailable [phone] Raghav Mitchell DO Primary Care Provider [phone] Charmaine Tilley MD Unavailable [phone] Porfirio Rubio DPRaffy Unavailable Allergies Active Allergy Reactions Criticality Noted Date Comments Uri Inhibitors Other 01/14/2019 Amlodipine Swelling,Unknown 07/09/2023 Chlorthalidone 03/04/2023 Other Reaction(s): severe hip pain Clonidine Unknown 07/09/2023 Other Reaction(s): Constipation, Mouth Dry Dry mouth Codeine Unknown 01/14/2019 Doxycycline GI intolerance High 09/30/2024 Hydrochlorothiazide Diarrhea,Unknown 07/09/2023 Lisinopril 03/04/2023 Other Reaction(s): coughing Loperamide 03/04/2023 Other Reaction(s): trouble breathing Nifedipine Palpitations Low 07/09/2023 Nsaids 03/04/2023 Other Reaction(s): doesn't tolerate Other GI intolerance 08/31/2012 Penicillins 03/04/2023 Other Reaction(s): as a child unsure of rxn Sulfanilamide 03/04/2023 Other Reaction(s): sick feeling Medications Multiple Vitamins-Minerals (Multivitamin Adult, Minerals,) tablet Take 1 tablet by mouth 1 (one) time each day Active Eliquis 5 MG tablet Take 5 mg by mouth in the morning and 5 mg before bedtime. Active flecainide (Tambocor) 50 MG tablet Take 0.5 tablets by mouth in the morning and 0.5 tablets before bedtime. Active irbesartan (Avapro) 150 MG tablet Take 150 mg by mouth in the morning and 150 mg before bedtime. Active spironolactone (Aldactone) 50 MG tablet Take 50 mg by mouth Daily Active cloNIDine (Catapres) 0.1 MG tablet Take 0.1 mg by mouth Daily as needed for high blood pressure. 07/23/20 23 Active acetaminophen (Tylenol) 325 MG tablet Take 1-2 tablets by mouth as needed in the morning and 1-2 tablets as needed in the evening for mild pain. Active polyethylene glycol, PEG, 3350 (Miralax) 17 g packet Take 17 g by mouth Daily as needed Active metoprolol tartrate (Lopressor) 25 MG tabletIndications:At rial Fibrillation Take 25 mg by mouth Daily as needed (For breakthrough A-Fib) 11/29/19 25 Active hyoscyamine (Levsin) 0.125 MG SL tabletIndications:Ab dominal Cramps,Diverticuliti s of the Gastrointestinal Tract Take 0.125 mg by mouth every 4 (four) hours if needed for cramping Active oxyCODONE (Roxicodone) 5 MG immediate release tablet Take 5 mg by mouth every 4 (four) hours if needed for severe pain or moderate pain 04/14/20 25 Active hydrALAZINE (Apresoline) 50 MG tablet Take 50 mg by mouth in the morning and 50 mg in the evening and 50 mg before bedtime. Active guaiFENesin (Mucinex) 600 MG 12 hr tablet Take 600 mg by mouth as needed in the morning and 600 mg as needed in the evening for cough (cough/phlegm). Do not crush, chew, or split. 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 [address] [place] [address] Rachel Rolon LPN 06/13/2025 Telephone [facility] [address] [place] [address] Adrianne Persaud MA Error (VOID this visit) 06/09/2025 3:40 PM EDT Office Visit [facility] [address] [place] [address] Raghav Mitchell, DO 06/09/2025 Bamboo flowsheet [facility] [address] [place] [address] Raghav Mitchell, DO 06/09/2025 Travel 06/05/2025 Patient Outreach [facility] [address] [place] [address] Rachel Rolon LPN 05/26/2025 Abstract [facility] [address] [place] [address] Raghav Mitchell, DO 05/17/2025 Telephone [facility] [address] [place] [address] Naty Magana MA Lower Back Pain 05/15/2025 1:00 PM EDT Procedure Visit [facility] [address] [facility] [phone] Porfirio Rubio, ARMANDO Onychomycosis (Primary Dx); Onychodystrophy; Pain in both feet 05/15/2025 Patient Outreach [facility] [address] [place] [address] Rachel Rolon, PARTICLEBOARD FACTORY WORKER 05/15/2025 Bamboo flowsheet [facility] Pod[facility]ry [address] [place] [address] Porfirio Rubio DPM 05/15/2025 Travel 05/12/2025 Travel 05/10/2025 Travel 05/08/2025 Patient Outreach [facility] [address] [place] [address] Rachel Rolon, FARIHA 05/02/2025 Patient Outreach [facility] [address] [place] [address] Rachel Rolon, PARTICLEBOARD FACTORY WORKER 04/27/2025 4:40 PM EDT Office Visit [facility] [address] [place] [address] Raghav Mitchell, DO Closed fracture of multiple ribs of left side, sequela (Primary Dx); Moniliasis skin; Atrial fibrillation, unspecified type (HCC) 04/27/2025 Bamboo flowsheet [facility] [address] [place] [address] Raghav Mitchell, DO 04/27/2025 Travel 04/26/2025 Patient Outreach [facility] [address] [place] [address] Rachel Rolon, PARTICLEBOARD FACTORY WORKER 04/18/2025 Abstract [facility] [address] [place] [address] Raghav Mitchell, DO 04/18/2025 Patient Outreach [facility] [address] [place] [address] Gonzales RachelFARIHA montana 04/12/2025 Telephone [facility] [address] [place] [address] Raghav Mitchell, DO Care Coordination 04/10/2025 Abstract [facility] [address] [place] [address] Raghav Mitchell, DO 04/07/2025 Abstract [facility] [address] [place] [address] Raghav Mitchell, DO 04/04/2025 [facility] [address] [place] [address] Raghav Mitchell, DO 04/03/2025 [facility] [address] [facility] [place] [address] Raghav Mitchell, from Last 3 Months Immunizations Immunization Administration Dates Next Due DTP 01/14/2022 Pneumococcal Conjugate PCV 13 09/08/2016 Tdap 01/14/2022 Family History Medical History Relation Name Comments Heart disease Father Heart disease Mother Hypertension Mother Relation Name Status Comments Brother 1 Daughter 2, healthy Father Mother Other Denies family h istory of melanoma Sister 4, healthy Son 1 Social History Tobacco Use Types Packs/Day Years Used Date Smoking Tobacco: Never Passive Smoke Exposure: Never Smokeless Tobacco: Never Tobacco Cessation:Counseling Given: [...] week 09/07/2024 How often do you attend [facility] or druze services? 1 to 4 times per year 09/07/2024 Do you belong to any clubs o r organizations such as advent groups, unions, fraternal or athletic groups, or [...] Recorded Patient Health Questionnaire-2 Score 0 06/09/2025 [facility] of Occupat ional Health - Occupational Stress [...] place to sleep or slept in a jail (including now)? No 09/04/2023 Housing Stability Vital Sign Answer Brad e Recorded In the last 12 months, was t here a time when you were not able to pay the mortgage or rent on time? No 09/07/2024 In the past 12 months, how m any times have you moved where you were living? 0 09/07/2024 At any time in the past 12 m [facility], were you homeless or living in a jail (including now)? No 09/07/2024 Comments Unknown Sex [...] Mass Index 32.59 06/09/2025 3:48 PM EDT Plan of Treatment Health Maintenance Due Date Last Done Comments Influenza Vaccine (#1) 2025 Pneumococcal Vaccine: 65+ Years (2 of 2 - PPSV23) 12/09/2025 09/08/2016 Postponed from 11/03/2016 (Patient Refused) Medicare Annual Wellness (AWV) 02/08/2026 02/08/2025, 02/08/2025, 02/01/2024, Additional history exists Insurance MEDICARE [employer] [place] Care Teams Frit Maker Relationship Specialty Start Date End Date Raghav Mitchell DO [address] [place] [address] PCP - ACO Reach 02/19/23 Raghav Mitchell DO [address] [facility] [address] [place] [address] PCP - General Family Medicine 03/05/23 Charmaine Tilley MD 703 [facility] 2, [address] [place] [address] Referring Physician Cardiology 02/01/24 Porfirio Rubio DPM [address] [place] [address] Referring Physician Podiatry 02/01/24
--- OUTSIDE RECORDS SUMMARY | 2025-06-23 16:53 | XMS_ITS | Encounter Summary ---
Author Organization [facility] Address [address] [place] [address] Care Team Providers Care Heavy Duty Diesel Mechanic Name Role Phone Raghav Mitchell DO Unavailable [phone] Raghav Mitchell DO Primary Care Provider [phone] Charmaine Tilley MD Unavailable [phone] Porfirio Rubio DPM Unavailable [phone] Reason for Visit * Reason Onset Date Comments Error (VOID this visit) 06/13/2025 Encounter Details Date Type Department Care Team (Late st Contact Info) Description 06/13/2025 Telephone [facility] [address] [facility] [address] [place] [id number] Adrianne Persaud MA Error (VOID this visit) Social History Tobacco Use Types Packs/Day Years [...] How often do you attend chur or mandaeism services? 1 to 4 times per year 09/07/2024 Do you belong to any clubs o r organizations such as druze groups, unions, fraternal or athletic groups, or [...] Recorded Patient Health Questionnaire-2 Score 0 06/09/2025 [facility] [place] [facility] Occupat ional [facility] - Occupational Stress [...] place to sleep or slept in a long-term (including now)? No 09/04/2023 Housing Stability Vital Sign Answer Brad e Recorded In the last 12 months, was t here a time when you were not able to pay the mortgage or rent on time? No 09/07/2024 In the past 12 months, how m any times have you moved where you were living? 0 09/07/2024 At any time in the past 12 m [facility], were you homeless or living in a long-term (including now)? No 09/07/2024 Comments Unknown Sex [...] documented as of this encounter Care Teams Heavy Duty Diesel Mechanic Relationship Specialty Start Date End Date Raghav Mitchell DO [address] [place] [address] PCP - ACO Reach 02/19/23 Raghav Mitchell DO [address] [place] [address] PCP - General Family Medicine 03/05/23 Charmaine Tilley MD [address] [facility] [address] [place] [address] Referring Physician Cardiology 02/01/24 Porfirio Rubio DPM [address] [place] [id number] Referring Physician Podiatry 02/01/24 documented as of this encounter
--- OUTSIDE RECORDS SUMMARY | 2025-06-23 16:54 | XMS_ITS | CCD ---
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 Name Role Phone CHARMAINE PINEDO Attending Unavailable RAGHAV MITCHELL Primary Care Unavailable JES NEWMAN Attending Unavailable RAGHAV MITCHELL Primary Care Unavailable JES NEWMAN Attending Unavailable RAGHAV MITCHELL Primary Care Unavailable Raghav Mitchell Unavailable Unavailable Unavailable George Adams Unavailable DO Raghav Mitchell Primary Care Provider DO Mike Brian Emergency Provider Isrrael Aparicio Unavailable [phone] RAGHAV MITCHELL Primary Care Unavailable JEANINE NOLAN Admitting Unavailable JEANINE NOLAN Attending Unavailable JEANINE NOLAN Consulting Unavailable ANTONY, DR STACY Admitting Unavailable MISJenny, DR STACY Attending Unavailable STEPHEN, DR AVILEZ [...] NOLAN Attending Unavailable JEANINE NOLAN Consulting Unavailable DR RAGHAV MITCHELL Primary Care Unavailable KERON, DR TRANG Goins Admitting Unavailkirill CABRALES, DR TRANG Goins Attending Unavailkirill CABRALES, DR TRANG Goins Consulting UnavailDO Raghav Garcia Primary Care Provider [phone] MD Kodi Smith Jr Emergency Provider Pinedo, Dr. Charmaine Mancilla Referring Cherri vailable Stephen, Dr. Raghav Wagner Primary Care Unavaila ble Pinedo, Dr. Charmaine Mancilla Attending Cherri vailable Pinedo, Dr. Charmaine Mancilla Referring Cherri vailable Stephen, Dr. Raghav Wagner Primary Care Unavaila ble Pinedo, Dr. Charmaine Mancilla Attending Cherri vailable Stephen, DO Avilez Primary Care Provider DO Mike Brian Emergency Provider [phone] Raghav Mitchell DO Primary Care Provider DO Raghav Mitchell Primary Care Provider DO Mike Brian Emergency Provider [phone] PRISCA FORBES Referring Unavailable RAGHAV MITCHELL Primary Care Unavailable DO Raghav Mitchell Primary Care Provider Tuphuong, DO Alvin Akbar Emergency Provider Raghav Mitchell DO Unavailable Raghav Mitchell DO Primary Care Provider Charmaine Pinedo MD Unavailable Porfirio Rubio DPM Unavailable Raghav Mitchell DO Primary Care Provider [phone] Charmaine Pinedo MD Unavailable Raghav Mitchell DO Primary Care Provider Alvin Murphy DO Emergency Provider [phone] Annette Porras MD Admit Provider Annette Porras MD Attending Provider Rachel Rushing APRN Other Provider Svetlana HOUSTON, Aniceto Diane Other Provider Jory HOUSTON, Michael Mujica Other Provider [phone] Gabriel Dumont MD Other Provider Deric Friedman DO Other Provider Milton Granda DO Other Provider Eliceo HOUSTON, Eve Other Provider Argentina HOUSTON, Aldair Diane Other Provider Jose HOUSTON, Andrew Other Provider Willie HOUSTON, Enoc Nice Other Provider Vern HOUSTON, Annette Other Provider Uzair HOUSTON, Lynnette Other Provider Bernard Lock MD Attending Provider Bernard Lock MD Other Provider Irais Nova APRN Other Provider [phone] Sharath Stark DO Other Provider Farnaz HOUSTON, Andre Aviles Other Provider Ashvin HOUSTON, Bernard Admit Provider Aline RN, Blanca Other Provider Unavailable Amy RN, Charito Other Provider Unavailable Katy RN, Sol Other Provider Unavailable Hallie RN, Qian Other Provider Unavailable Flex RN, Celia Other Provider Unavailable Ashvin TAMAYO, Dionne Other Provider Unavailable Mumtaz Han MD Other Provider José Miguel Quevedo DO Other Provider Jonathan Daniels MD Other Provider [phone] Waldo Hannon DO Other Provider Jose Guerrero MD Other Provider Edmund Cisneros DO Other Provider Guido Thomas MD Other Provider Unavailable Allyson Feldman APRN Other Provider Gadiel Hassan MD Other Provider Derek Kimble MD Other Provider Pranav Apple MD Other Provider Unavailable Ruben Sandoval MD Other Provider Edmund Kirk DO Other Provider Anh HOUSTON, Bella Other Provider Ben Woods MD Other Provider Alicia MATSON-C, Evie Bryan Other Provider Clint Ragsdale APRN Other Provider Unavailable Ute HOUSTON, Xavier Diane Other Provider Jeffry HOUSTON, Ward Other Provider Laura HOUSTON, Dorian Other Provider Sherif Tejeda MD Other Provider Unavailable Ayush Bronson MD Other Provider Eloina Davidson DO Other Provider Gary Ordonez DO Other Provider [phone] Amelia Rossi APRN Other Provider Maurizio Villanueva DO Other Provider Bouchra HOUSTON, Arley Akbar Other Provider [phone] Jelena Newman APRN Other Provider Sonal Rodriguez APRN Other Provider Shweta HOUSTON, Harman Other Provider Unavailable Jamin Auguste MD Other Provider Veloz DO, Stoney T Other Provider Juan LEE Yagarth Other Provider Rodney Sanchez MD Other Provider Halle Murray MD Other Provider Brigida Henderson APRN Other Provider Unavailable Jessie Newberry MD Other Provider Naveen Muse MD Other Provider Bernard De La Paz MD Other Provider Yasmin HOUSTON, Guido Auguste Other Provider Brody Camargo MD Other Provider Mara Cronin APRN Other Provider Bolzan-Raymundo OLIVIA, Nicoletto Other Provider [phone] Faviola Cervantes RN Other Provider Unavailable Andre Osei MD Attending Provider Bernard Lock Attending Unavailable Bernard Lock Admitting Unavailable Blanca Mireles Consulting Unavailable Raghav Mitchell Primary Care Unavailable Charito Reyes Consulting Unavailable Sol Burns Consulting Unavailable Qian Sterling Consulting Unavailable Celia Mccord Consulting Unavailable Dionne Lock Consulting Unavailable Mumtaz Han Consulting Unavailable José Miguel Quevedo Consulting Unavailable Jonathan Daniels Consulting Unavailable Waldo Hannon Consulting UnavailJose Padilla Consulting Unavailable Annette Porras Consulting Unavailable Edmund Cisneros Consulting Unavailable Guido Thomas Consulting Unavailable Allyson Feldman Consulting UnavailGadiel Mace Consulting Unavailable Derek Kimble Consulting Unavailable Pranav Apple Consulting Unavailable Ruben Sandoval Consulting Unavailable Edmund Kirk Consulting Unavailable Bella Kamara Consulting Unavailable Ben Woods Consulting Unavailable Evie Vargas Consulting Unavailable Clint Ragsdale Consulting Unavailable Xavier Unger Consulting Unavailab Ward Arevalo Consulting Unavailable Dorian Sanchez Consulting Unavailable Sherif Tejeda Consulting Unavailable Ayush Bronson Consulting Unavailable Eloina Davidson Consulting Unavailable Gary Ordonez Consulting Unavailable Amelia Rossi Consulting Unavailable Maurizio Villanueva Consulting Unavailable Arley Shook Consulting Unavailable Jelena Newman Consulting Unavailable Sonal Rodriguez Consulting Unavailable Harman Rock Consulting Unavailable Jamin Auguste Consulting Unavailable Stoney Veloz Consulting Unavailable Tasha Martinez Consulting Unavailable Rodney Sanchez Consulting Unavailable Halle Murray Consulting Unava ilable Brigida Henderson Consulting Unavailable Jessie Newberry Consulting Unavailable Naveen Muse Consulting Unavailable Bernard De La Paz Consulting Unavailable Guido Hoffman Consulting Unavailable Brody Camargo Consulting Unavailable Mara Cronin Consulting Unavailable Bolzan-Raymundo, Nicoletto Consulting Unavaila ble Cervantes, Faviola Consulting Unavailable Alvin Murphy Attending Unavailable Raghav Mitchell Primary Care Unavailable Alvin Murphy Admitting Unavailable Semaskmarlone, Annette Attending Unavailable Raghav Mitchell Primary Care Unavailable Semaskiene, Annette Admitting Unavailable Сергей, Rachel Consulting Unavailable Svetlana, Aniceto Diane Consulting Unavaila ble Swedeh, Michael Mujica Consulting Unavailable Manko, Gabriel Goins Consulting Unavailable BrownDeric Consulting Unavailable SamsaMilton Consulting Unavailable Fenton, Basem Consulting Unavailable Tuan-Belledonne, Aldair E Consulting Un available Zimmerman, Bassusan Consulting Unavailable Enoc Tapia Consulting Unavaila ble Kuhar, Lynnette Consulting Unavailable Bernard Lock Consulting Unavailable Irais Nova Consulting Unavailable Sharath Stark Jr Consulting UnavailAndre Barr Consulting Unavaila daysi PINEDO, CHARMAINE Akbar Attending Unavailable CHARMAINE PINEDO Referring Unavailable RAGHAV MITCHELL Primary Care Unavailable CHARMAINE PINEDO Attending Unavailable RAGHAV MITCHELL Primary Care Unavailable JOANNE, PORFIRIO Auguste Attending Unavailable STEPHEN, RAGHAV Bryan Attending Unavailable JOANNE, PORFIRIO Auguste Attending Unavailable CHRISTINE ROSENTHAL Attending Unavailable STEPHEN, RAGHAV Bryan Attending Unavailable RUS, PORFIRIO Auguste Attending Unavailable RUSHER, PORFIRIO Auguste Attending Unavailable VAN, CHLOE Bryan Attending Unavailable CHLOE MERCADO Referring Unavailable CHLOE MERCADO Referring Unavailable STEPHEN, RAGHAV Bryan Attending Unavailable STEPHEN, RAGHAV Bryan Attending Unavailable Allergies Allergy Classification Reported Allergen(s) Allergy Type Date of Onset Reaction(s) Facility (20 sources) amLODIPine; Translations: [Norvas] Drug Allergy Unknown, Swelling [address] Work Phone: (20 sources) Angiotensin Converting Enzyme (Norah) Inhibitors; Translations: [NORAH Inhibitors] Allergy to drug (finding) Cough [facility] (20 sources) Chlorthalidone; Translations: [chlorthalidone] Drug Allergy Myalgia [facility] (20 sources) cloNIDine; Translations: [clonidine] Drug Allergy Other, Constipation, Unknown [facility] Comment on above: CONSTIPATION (20 sources) Codeine; Translations: [codeine] Drug Allergy Nausea Only, Unknown [facility] (20 sources) hydroCHLOROthiazide; Translations: [hydrochlorothiazide] Drug Allergy Unknown [facility] (20 sources) Loperamide; Translations: [Imodium] Drug Allergy Nausea Only [facility] [address] [place] Work Phone: (20 sources) NIFEdipine; Translations: [NIFEdipine] Drug Allergy Palpitations [facility] Comment on above: TACHYCARDIA (20 sources) Penicillins; Translations: [Penicillins] Allergy to drug (finding) Unknown [facility] (19 sources) Sulfamethoxazole; Translations: [sulfa] Drug Allergy 023 Unknown [facility] [address] [place] Work Phone: (11 sources) Sulfonamides (Antibiotic); Translations: [Sulfa Drugs] Allergy to drug (finding) Nausea [facility] [address] Work Phone: (6 sources) Loperamide Drug Allergy Unknown, Unknown Reaction [facility] (2 sources) Penicillins (Antibiotic) Propensity to adverse reactions Unknown [employer] Other (6 sources) Anti inflammatory Propensity to adverse reactions Unknown, Unknown Reaction [facility] (9 sources) amLODIPine; Translations: [AMLODIPINE] Drug Allergy Leg Swelling [facility] (9 sources) Loperamide; Translations: [LOPERAMIDE] Drug Allergy Difficulty Swallowing [facility] (8 sources) Sulfonamides (Antibiotic) Propensity to adverse reactions Vomiting [facility] (1 source) amLODIPine Drug Allergy [facility] (1 source) Angiotensin Converting Enzyme (Norah) Inhibitors Drug allergy (disorder) [facility] (1 source) Chlorthalidone Drug Allergy [facility] (1 source) Codeine Drug Allergy [facility] (1 source) Flupenthixol Drug Allergy [facility] (1 source) hydroCHLOROthiazide Drug Allergy [facility] (1 source) Loperamide Drug Allergy [facility] (1 source) Penicillin Drug Allergy [facility] (1 source) Sulfonamides (Antibiotic) Drug allergy (disorder) [facility] (5 sources) Angiotensin-convertin g enzyme inhibitor agent Drug Intolerance [facility] (3 sources) Penicillins Drug Intolerance 023 [facility] Work Phone: (20 sources) Angiotensin-convertin g enzyme inhibitor agent Drug Allergy 019 Other [facility] (20 sources) Chlorthalidone Drug Allergy 023 [facility] Work Phone: (20 sources) hydroCHLOROthiazide Drug Allergy 023 Diarrhea, Unknown [facility] (20 sources) Lisinopril Allergy to substance 023 [facility] (20 sources) Nifedipine Allergy to substance 023 Palpitations [facility] (20 sources) Non-steroidal anti-inflammatory agent Drug Allergy 023 [facility] (20 sources) Penicillins Drug Allergy 023 [facility] (20 sources) Sulfanilamide Allergy to substance 023 [facility] (20 sources) Other Propensity to adverse reactions 012 GI intolerance [facility] (20 sources) Doxycycline; Translations: [DOXYCYCLINE] Drug Allergy 025 GI intolerance, Diarrhea [facility] Work Phone: (1 source) Penicillins Drug Intolerance 023 [facility] Work Phone: (1 source) Sulfamethoxazole; Translations: [SULFAMETHOXAZOLE] Drug Allergy 023 [facility] 3 Repository Medications Current Medications Medication Drug Class(es) Dates Sig (Normalized) Sig (Original) acetaminophen 500 mg oral tablet (20 sources) Start: 04-14-2025 take 1 tablet by mouth every four hours as needed for pain acetaminophen (T ylenol) 325 MG tablet Take 1-2 tablets by mouth as needed in the morning and 1-2 tablets as needed in the evening for mild pain. Active apixaban 5 mg oral tablet (20 sources) Factor Xa Inhibitor Start: 11-30-2017 End: 04-14-2025 take 1 tablet by mouth twice daily balsalazide disodium 750 mg oral capsule (1 source) Aminosalicylate Start: 07-24-2022 take 3 capsules by mouth every twelve hours Balsalazide Disodium 750 MG 3 capsules Orally Twice a day for 30 day(s) Jun, Active cloNIDine hydrochloride 0.1 mg oral tablet (20 sources) Central alpha-2 Adrenergic Agonist Start: 07-23-2023 End: 04-05-2025 take 1 tablet by mouth every twenty-four [...] 1 hour). 60 tablet 11 07/23/2023 Active docusate sodium 100 mg oral capsule (1 source) Start: 12-25-2021 take 1 capsule by mouth every twelve hours Colace 100 MG 1 capsule as needed Orally bid for 30 day(s) Nov, Active doxycycline hyclate 100 mg oral capsule (10 sources) Tetracycline -class Drug Start: 09-29-2024 End: [...] 10/06/2024 Active Start: 02-20-2018 End: 11-04-2018 take 1 capsule by mouth twice daily Doxycycline Hyclate 100 mg capsule Discontinued 100 MG PO Twice daily 17 07February 20, 2018 12:00am November 04, 2018 8:17pm flecainide acetate 50 mg oral tablet (20 sources) Antiarrhythmic Start: 02-14-2025 End: 02-14-2026 take 1 tablet by mouth twice daily flecainide (Tambocor) 50 mg tablet Indications: Paroxysmal atrial fibrillation (Multi) Take 1 tablet (50 mg) by mouth 2 times a day. 180 tablet 3 02/14/2025 02/14/2026 Active Start: 03-15-2023 flecainide (Ta mbocor) 50 mg tablet Indications: Paroxysmal atrial fibrillation (Multi) TAKE 1/2 (ONE-HALF) OF A TABLET BY MOUTH TWICE DAILY 90 tablet 3 03/03/2024 Active Start: 11-30-2017 End: 04-14-2025 Start: 11-30-2017 take 25 mg by mouth twice alesha y Flecainide Active 25 MG PO Twice daily November 30, 2017 1:00am take 1 tablet by mendoza every twelve hours Flecainide Acetate 50 MG TAKE 1 TABLET BY MOUTH EVERY 12 HOURS Oral for 30 Active 12 hr guaiFENesin 600 mg extended release oral tablet (7 sources) Start: 04-14-2025 take 1 tablet by mouth twice daily hydrALAZINE hydrochloride 50 mg oral tablet (20 sources) Arteriolar Vasodilator Start: 04-14-2025 take 1 tablet by mouth twice daily Start: 03-27-2025 End: 03-27-2026 take 1 tablet by mouth three times daily hydrALAZINE (Apresoline) 50 mg tablet Indications: Essential (primary) hypertension Take 1 tablet (50 mg) by mouth 3 times a day. 270 tablet 3 03/27/2025 03/27/2026 Active Start: 03-09-2025 hydrALAZINE (A presoline) 100 MG tablet Take 0.5 tablets (50 mg) by mouth in the morning and 0.5 tablets (50 mg) at noon and 0.5 tablets (50 mg) in the evening and 0.5 tablets (50 mg) before bedtime. 60 tablet 03/09/2025 Active Start: 08-10-2024 End: 08-10-2025 take 1 tablet by mouth twice daily hydrALAZINE (Apreso line) 100 mg tablet Indications: Essential hypertension, benign Take 1 tablet (100 mg) by mouth 2 times a day. 180 tablet 3 08/10/2024 03/27/2025 Discontinued (Dose adjustment) Start: 12-30-2023 take 0.5 tablet by m outh in the morning hydrALAZINE (Apresoline) 100 MG tablet Take 0.5 tablets (50 mg) by mouth in the morning and 0.5 tablets (50 mg) before bedtime. 30 tablet 12/30/2023 Active Start: 07-27-2023 End: 04-14-2025 take 2 tablets by mouth twice daily Hydralazine 25 mg tablet Discontinued 50 MG PO Twice daily July 27, 2023 12:14pm April 14, 2025 1:32pm Start: 07-27-2023 take 4 tablets by mo uth twice daily Start: 07-27-2023 take 100 mg by mouth twice gogo ly Hydralazine Active 100 MG PO Twice daily July 27, 2023 12:14pm Start: 07-23-2023 End: 07-22-2024 take 1 tablet by mouth twice daily hydrALAZINE (Apreso line) 100 mg tablet Indications: Essential hypertension, benign Take 1 tablet (100 mg) by mouth 2 times a day. 180 tablet 3 07/23/2023 07/22/2024 Active Start: 03-19-2023 End: 07-27-2023 take 1 tablet by mouth three times daily Hydralazine 25 mg tablet Discontinued 25 MG PO Three times daily 90 March 19, 2023 10:12pm July 27, 2023 12:14pm Start: 08-20-2021 End: 03-19-2023 take 1 tablet by mouth twice daily Hydralazine 25 mg t ablet Discontinued 25 MG PO Twice daily March 19, 2023 12:00am March 19, 2023 10:12pm Start: 12-22-2020 End: 07-26-2021 take 1 tablet by mouth once daily as needed for hypertension Hydralazine 50 mg Tablet Discontinued 50 MG PO Daily as needed for Hypertension December 22, 2020 12:00am July 26, 2021 6:48am sbp greater 160 Start: 01-14-2019 End: 01-17-2019 take 1 tablet by mouth twice daily Hydralazine 25 mg t ablet Discontinued 25 MG PO Twice daily January 14, 2019 12:00am January 17, 2019 12:36pm hydrALAZINE HCl Active hyoscyamine sulfate 0.125 mg oral tablet (20 sources) Start: 04-01-2025 End: 04-05-2025 take 1 tablet by mouth every six hours as needed Start: 04-22-2024 End: 09-27-2024 take 1 tablet [...] DO Active irbesartan 150 mg oral tablet (20 sources) Angiotensin 2 Receptor Tryo Start: 01-14-2019 End: 04-14-2025 take 1 tablet by mouth every twelve hours Irbesartan 150 mg tablet Discontinued 150 MG PO Q12H January 14, 2019 12:00am April 14, 2025 1:32pm Start: 01-14-2019 End: 03-14-2026 take 1 tablet by mouth twice daily irbesartan (Avapro) 150 mg tablet Indications: Essential (primary) hypertension Take 1 tablet (150 mg) by mouth 2 times a day. 180 tablet 3 03/14/2025 03/14/2026 Active take 1 tablet by mendoza th every twelve hours Irbesartan 150 MG Oral Tablet TAKE 1 TABLET Every twelve hours Quantity: 180 Refills: 3 Ordered: 14-Oct-2022 Charmaine Pinedo MD Active Irbesartan Activ e lidocaine 0.04 mg/mg medicated patch (3 sources) Antiarrhythmic, Amide Local Anesthetic Start: 04-05-2025 End: 04-14-2025 apply 1 dose topically once daily magnesium oxide 400 mg oral tablet (2 sources) Start: 09-18-2023 End: 09-17-2024 take 1 tablet by mouth twice daily magnesium oxide (Mag-Ox) 400 mg (241.3 mg magnesium) tablet Indications: Paroxysmal atrial fibrillation (Multi) Take 1 tablet (400 mg) by mouth 2 times a day. 180 tablet 3 09/18/2023 09/17/2024 Active melatonin 5 mg oral tablet (1 source) Start: 04-14-2025 take 1 tablet by mouth once daily at bedtime as needed for sleep metoprolol tartrate 25 mg oral tablet (18 sources) beta-Adrenergic Troy Start: 11-28-2024 End: 04-14-2025 take 1 tablet by mouth once daily as needed metoprolol tartrate (Lopressor) 25 MG tablet Indications: Atrial Fibrillation Take 25 mg by mouth Daily as needed (For breakthrough A-Fib) 11/28/2024 Active Start: 11-25-2024 metoprolol tar trate (Lopressor) 25 mg tablet Indications: Paroxysmal atrial fibrillation (Multi) Take one tablet as needed for break through a fib 20 tablet 1 11/25/2024 Active Multiple Vitamins-Minerals (Multivitamin Adult, Minerals,) tablet (20 sources) take 1 tablet by mouth once daily Multiple Vitamins-Minerals (Multivitamin Adult, Minerals,) tablet Take 1 tablet by mouth 1 (one) time each day Active take 1 tablet by mouth once alesha y Multiple Vitamins-Minerals (Multivitamin Adult, Minerals,) tablet Take 1 tablet by mouth 1 (one) time each day. Active nystatin 167018 unt/ml oral suspension (1 source) Polyene Antifungal Start: 04-14-2025 take [id number] [IU] by mouth four times daily oxyCODONE hydrochloride 5 mg oral tablet (9 sources) Opioid Agonist Start: 04-05-2025 End: 04-14-2025 take 1 tablet by mouth every four hours as needed for pain and pain oxyCODONE (Roxicodone) 5 MG immediate release tablet Take 5 mg by mouth every 4 (four) hours if needed for severe pain or moderate pain 04/14/2025 Active pantoprazole 40 mg delayed release oral tablet (1 source) Proton Pump Inhibitor Start: 04-14-2025 take 1 tablet by mouth once daily polyethylene glycol 3350 46722 mg powder for oral solution (17 sources) Osmotic Laxative Start: 04-05-2025 End: 04-14-2025 sennosides, fpc 8.6 mg oral tablet (3 sources) Start: 04-05-2025 End: 04-14-2025 take 2 tablets by mouth twice daily spironolactone 50 mg oral tablet (20 sources) Aldosterone Antagonist Start: 07-27-2023 End: 11-04-2025 take 1 tablet by mouth once daily Start: 04-02-2023 take 1 tablet by mendoza th once daily Spironolactone 50 MG Oral Tablet TAKE 1 TABLET BY MOUTH DAILY Quantity: 90 Refills: 3 Ordered: 03-Apr-2023 Charmaine Pinedo MD Start : 02-Apr-2023 Active Start: 11-10-2020 End: 12-22-2020 take 1 tablet by mouth once daily Spironolactone 50 mg Tablet Discontinued 50 MG PO Daily November 10, 2020 1:00am December 22, 2020 9:17am Spironolactone A ctive sucralfate 1000 mg oral tablet (1 source) Aluminum Complex Start: 12-25-2021 take 1 tablet by mouth every twelve hours Sucralfate 1 GM 1 tablet on an empty stomach Orally Twice a day for 30 day(s) Nov, Active Completed/Discontinued Medications Medication Drug Class(es) Dates Sig (Normalized) Sig (Original) [id number] 200 actuat albuterol 0.09 mg/actuat metered dose inhaler (8 sources) beta2-Adrenergic Agonist Start: 02-20-2018 End: 11-04-2018 Albuterol Sulfate 90 mcg/actuation HFA aerosol inhaler Discontinued 2 INH INHALATION Q6H as needed for shortness of breath or wheezing February 20, 2018 12:00am November 04, 2018 8:17pm administer with spacer amLODIPine 5 mg oral tablet (2 sources) Dihydropyridine Calcium Channel Troy take 1 tablet by mouth once daily amLODIPine Besylate 5 MG TAKE 1 TABLET BY MOUTH DAILY Oral for 90 Not-Taking atenolol 25 mg oral tablet (18 sources) beta-Adrenergic Troy Start: 01-14-2019 End: 01-17-2019 take 1 tablet by mouth once daily as needed Atenolol 25 mg Tablet Discontinued 25 MG PO daily as needed for Papitation January 14, 2019 12:00am January 17, 2019 12:36pm Start: 11-30-2017 End: 11-05-2018 Atenolol 25 mg Tablet Discon tinued 25 MG PO As Directed as needed for PALPITATIONS November 30, 2017 1:00am November 05, 2018 3:44pm benzonatate 100 mg oral capsule (2 sources) Non-narcotic Antitussive Start: 11-04-2024 End: 12-02-2024 take 1 capsule by mouth twice daily as needed for cough benzonatate (Tessalon) 100 MG capsule Take 100 mg by mouth 2 (two) times a day as needed for cough 11/04/2024 12/02/2024 Discontinued carvedilol 6.25 mg oral tablet (20 sources) alpha-Adrenergic Troy, beta-Adrenergic Troy Start: 01-14-2019 End: 01-17-2019 take 3.125 mg by mouth every twelve hours at mealtime Carvedilol 6.25 mg tablet Discontinued 3.125 MG PO Q12H January 14, 2019 6:49pm January 17, 2019 12:36pm must administer with a meal/food Start: 01-14-2019 End: 01-17-2019 take 3.125 mg by mouth every twelve hours at mealtime Carvedilol Discontinued 3.125 MG PO Q12H January 14, 2019 6:49pm January 17, 2019 12:36pm must administer with a meal/food Start: 11-05-2018 End: 01-14-2019 take 1 tablet by mouth every twelve hours at mealtime Carvedilol 6.25 mg tablet Discontinued 6.25 MG PO Q12H 60 30 November 05, 2018 1:00am February 02, 2019 12:00am January 14, 2019 6:50pm must administer with a meal/food Start: 11-30-2017 End: 11-05-2018 take 1 tablet by mouth twice daily Carvedilol 3.125 mg tablet Discontinued 3.125 MG PO Twice daily November 30, 2017 1:00am November 05, 2018 3:46pm Carvedilol Not-T aking cefdinir 300 mg oral capsule (2 sources) Cephalosporin Antibacterial Start: 04-05-2025 End: 04-12-2025 take 1 capsule by mouth twice daily Cefdinir 300 mg capsule Discontinued 300 MG PO Twice daily 6 3 April 05, 2025 12:00am April 12, 2025 5:03pm chlorthalidone 25 mg oral tablet (8 sources) Thiazide-like Diuretic Start: 11-30-2017 End: 02-20-2018 take 1 tablet by mouth twice daily Chlorthalidone 25 mg tablet Discontinued 25 MG PO Twice daily November 30, 2017 1:00am February 20, 2018 12:17pm ciprofloxacin 500 mg oral tablet (9 sources) Quinolone Antimicrobial Start: 11-20-2024 End: 12-02-2024 take 1 tablet by mouth in the morning ciprofloxacin (Cipro) 500 MG tablet Take 500 mg by mouth in the morning and 500 mg before bedtime. 11/20/2024 12/02/2024 Discontinued Start: 09-30-2024 take 1 tablet by mendoza th twice daily ciprofloxacin (Cipro) 500 MG tablet [...] PLEASE CHECK ALLERGIES Nov, Not-Taking estrogens, conjugated (fpc) 0.625 mg oral tablet (10 sources) Estrogen Start: 11-30-2017 End: 01-14-2019 take 1 tablet by mouth once daily Conjugated Estrogens (Premarin) 0.625 mg Tablet Discontinued 0.625 MG PO Daily November 30, 2017 1:00am January 14, 2019 6:49pm furosemide 20 mg oral tablet (20 sources) Loop Diuretic Start: 09-27-2024 End: 12-02-2024 take 1 tablet by mouth once daily furosemide (Lasix) 20 MG tablet Indications: Varicose veins of both legs with edema Take 1 tablet (20 mg) by mouth Daily 30 tablet 09/27/2024 12/02/2024 Discontinued Start: 04-01-2019 End: 11-10-2020 take 1 tablet by mouth once daily in the morning Furosemide (Lasix) 20 mg tablet Discontinued 20 MG PO Every morning April 01, 2019 12:00am November 10, 2020 6:11pm Start: 02-20-2018 End: 11-04-2018 take 1 tablet by mouth once daily Furosemide (Lasix) 20 mg Tablet Discontinued 20 MG PO Daily February 20, 2018 12:00am November 04, 2018 8:17pm lactulose 667 mg/ml oral solution (2 sources) Osmotic Laxative Start: 04-05-2025 End: 04-14-2025 take 30 g by mouth every six hours Lactulose 10 gram/15 mL Solution Discontinued 30 GM PO Q6H 100 April 05, 2025 12:00pm April 14, 2025 1:32pm losartan potassium 50 mg oral tablet (10 sources) Angiotensin 2 Receptor [place] Start: 11-30-2017 End: 01-14-2019 take 1 tablet by mouth twice daily Losartan 50 mg tablet Discontinued 50 MG PO Twice daily November 30, 2017 1:00am January 14, 2019 6:49pm metroNIDAZOLE 500 mg oral tablet (7 sources) Nitroimidazole Antimicrobial Start: 11-20-2024 End: 12-02-2024 take 1 tablet by mouth in the morning, then take 1 tablet by mouth in the evening, then take 1 tablet by mouth at bedtime metroNIDAZOLE (Flagyl) 500 MG tablet Take 500 mg by mouth in the morning and 500 mg in the evening and 500 mg before bedtime. 11/20/2024 12/02/2024 Discontinued Start: 09-29-2024 End: 10-06-2024 take 1 tablet [...] osmotic 24 hr extended release oral tablet (8 sources) Dihydropyridine Calcium Channel [place] Start: 01-17-2019 End: 11-10-2020 take 1 tablet by mouth once daily Nifedipine 30 mg Tablet Extended Release 24hr Discontinued 30 MG PO Daily January 17, 2019 12:00am November 10, 2020 6:11pm nitrofurantoin, macrocrystals 25 mg / nitrofurantoin, monohydrate 75 mg oral capsule (8 sources) Nitrofuran Antibacterial Start: 12-09-2021 End: 07-27-2023 take 1 capsule by mouth twice daily at mealtime Nitrofurantoin Monohyd/M-Cryst (Macrobid) 100 mg capsule Discontinued 100 MG PO Twice daily 07 02December 09, 2021 12:00am July 27, 2023 12:14pm must administer with a meal/food polysaccharide iron complex 150 mg oral capsule (8 sources) Start: 01-17-2019 End: 11-10-2020 Polysaccharide Iron Complex 150 mg iron capsule Discontinued 150 MG PO Every 48 hours January 17, 2019 12:00am November 10, 2020 6:11pm potassium chloride 10 meq extended release oral capsule (16 sources) Start: 04-01-2019 End: 11-10-2020 take 1 capsule by mouth once daily Potassium Chloride 10 mEq capsule, extended release Discontinued 10 MEQ PO Daily April 01, 2019 12:00am November 10, 2020 6:11pm Start: 11-30-2017 End: 11-04-2018 take 20 mEq by mouth once daily Potassium Chloride (Klor-Con) 20 mEq Packet Discontinued 20 MEQ PO Daily November 30, 2017 1:00am November 04, 2018 8:17pm psyllium 3400 mg powder for oral suspension (8 sources) Start: 06-06-2022 End: 07-27-2023 Psyllium Husk (Metamucil) 3. 4 gram/5.4 gram powder Discontinued 1 TBSP PO Twice daily June 06, 2022 12:00am July 27, 2023 12:14pm mix into at least 8 oz of water or juice before administering Problems Active Problems Problem Classification Problem Date Documented Da te Episodic/Chronic Acute and unspecified renal failure (1 source) Acute kidney failure, unspecified; Translations: [Acute kidney failure, unspecified] Onset: 04-01-2025 Episodic Administrative/social admission (3 sources) Other reduced mobility; Translations: [Impaired mobility and activities of daily living] Onset: 04-05-2025 04-06-2025 Episodic Cardiac dysrhythmias (20 sources) Paroxysmal atrial [...] secondary to blood loss (chronic)] 11-25-2024 Chronic Deficiency and other anemia (1 source) Anemia, unspecified; Translations: [Anemia, unspecified] Onset: 04-01-2025 Episodic Diverticulosis and diverticulitis (20 sources) Diverticulitis of colon; Translations: [Diverticulitis of colon (without mention of hemorrhage)] Onset: 10-29-2021 Chronic Essential hypertension (20 sources) Essential (primary) hypertension; Translations: [Benign essential hypertension] Onset: 11-24-2018 04-01-2019 Chronic Mycoses (6 sources) Onychomycosis; Translations: [Tinea unguium] 07-27-2024 Episodic Osteoarthritis (20 sources) Osteoarthritis; Translations: [Unspecified osteoarthritis, unspecified site] Onset: 03-04-2023 03-04-2023 Chronic Other aftercare (10 sources) Long-term current use of anticoagulant; Translations: [Long-term (current) use of anticoagulants] Episodic Other aftercare (1 source) Other fpc (current) drug therapy; Translations: [OTH VIDEO GAME TECHNICIAN CURRENT DRUG THERAPY] Onset: 09-30-2022 Episodic Other aftercare (3 sources) Taking high risk medication; Translations: [Other ferry terminal agent (current) drug therapy] 09-18-2023 Episodic Other circulatory disease (2 sources) Stricture of artery; Translations: [Stricture of artery] 06-27-2024 Chronic Other connective tissue disease (4 sources) Pain in both feet; Translations: [Pain [...] in left lower leg] 09-26-2024 Episodic Other fractures (7 sources) Fracture of rib; Translations: [Fracture of one rib, unspecified side, initial encounter for closed fracture] 04-01-2025 Episodic Other fractures (5 sources) Fracture of multiple ribs ; Translations: [Multiple fractures of ribs, unspecified side, initial encounter for closed fracture] 04-03-2025 Episodic Other fractures (1 source) Multiple fractures of ribs, unspecified side, initial encounter for closed fracture; Translations: [Multiple fractures of ribs, unspecified side, initial encounter for closed fracture] Onset: 04-05-2025 Episodic Other fractures (1 source) Fracture of one rib, unspecified side, initial encounter for closed fracture; Translations: [Fracture of one rib, unspecified side, initial encounter for closed fracture] Onset: 04-05-2025 Episodic Other fractures (2 sources) Closed fracture of multiple left ribs; Translations: [Multiple fractures of ribs, left side, sequela] 05-18-2025 Episodic Other gastrointestinal disorders (20 sources) Irritable bowel syndrome; Translations: [Irritable bowel syndrome without diarrhea] Onset: 03-04-2023 03-04-2023 Chronic Other gastrointestinal disorders (2 sources) Constipation alternates with diarrhea; Translations: [Other specified symptoms and signs involving the digestive system and abdomen] Episodic Other gastrointestinal disorders (1 source) Other specified symptoms and signs involving the digestive system and abdomen Episodic Other lower respiratory disease (1 source) Other forms of dyspnea; Translations: [Other forms of dyspnea] Onset: 04-01-2025 Episodic Other nervous system disorders (20 sources) Neuropathy; Translations: [Polyneuropathy, unspecified] Onset: 03-04-2023 03-04-2023 Chronic Other non-traumatic joint disorders (20 sources) Rotator cuff arthropathy of right shoulder; Translations: [Other specific arthropathies, not elsewhere classified, right shoulder] Onset: 03-04-2023 03-04-2023 Chronic Other non-traumatic joint disorders (4 sources) Hip pain; Translations: [Pain in left hip] 09-26-2024 Episodic Other nutritional; endocrine; and metabolic disorders (7 sources) Body mass index 30+ - obesity; [...] disorders (2 sources) Body mass index (BMI) 33.0-33.9, adult; Translations: [Body mass index (BMI) 33.0-33.9, adult] Onset: 03-27-2025 Chronic Other nutritional; endocrine; and metabolic disorders (2 sources) Body mass index (BMI) 32.0-32.9, adult; Translations: [Body mass index (BMI) 32.0-32.9, adult] Onset: 11-25-2024 Chronic Other skin disorders (4 sources) Dystrophia unguium; Translations: [Nail dystrophy] 07-27-2024 Episodic Pleurisy; pneumothorax; pulmonary collapse (8 sources) Hemothorax; Translations: [Hemothorax] Onset: 04-05-2025 04-01-2025 Episodic Residual codes; unclassified (8 sources) Never smoked any substance; Translations: [Other specified health status] Onset: 09-18-2023 09-18-2023 Episodic Respiratory failure; insufficiency; arrest (adult) (6 sources) Acute hypoxemic respiratory failure; Translations: [Acute respiratory failure with hypoxia] Onset: 04-05-2025 04-03-2025 Episodic Retinal detachments; defects; vascular occlusion; and retinopathy (1 source) Retinal ischemia; 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] Onset: 01-26-2024 Chronic Unclassified (3 sources) Other fpc (current) drug therapy; Translations: [Other fpc (current) drug therapy] Onset: 2018 Unclassified (2 sources) Call to schedule follow up appointment with PCP after discharge Unclassified (2 sources) Follow up with rehab physician as needed Viral infection (4 sources) COVID-19; Translations: [COVID-19] Onset: 09-06-2022 Past or Other Problems Problem Classification Problem Date Documented Da te Episodic/Chronic Abdominal pain (20 sources) Abdominal pain; Translations: [Unspecified abdominal pain] Onset: 10-26-2021 12-08-2017 Episodic Cardiac dysrhythmias (20 sources) Palpitations; Translations: [Palpitations] Onset: 12-08-2023 07-26-2021 Episodic Conditions associated with dizziness or vertigo (20 sources) Dizziness; Translations: [Dizziness and giddiness] Onset: 12-08-2023 01-14-2019 Episodic Deficiency and other anemia (1 source) Microcytic anemia; Translations: [Iron deficiency anemia, unspecified] 04-13-2024 Episodic Deficiency and other anemia (3 sources) Anemia; Translations: [Anemia, unspecified] Onset: 04-13-2024 04-13-2024 Episodic E Codes: Natural/environment (1 source) Bitten by cat, initial encounter; Translations: [BITTEN BY CAT INITIAL ENCOUNTER] Onset: 01-16-2022 Episodic Immunizations and screening for infectious disease (1 source) Encounter for immunization; Translations: [ENCOUNTER FOR IMMUNIZATION] Onset: 01-16-2022 Episodic Mood disorders (20 sources) Mood disorders Onset: 02-01-2024 Resolved: 02-08-2025 02-01-2024 Nonspecific chest pain (20 sources) Chest pain; Translations: [Chest pain, unspecified] Onset: 12-08-2023 01-15-2019 Episodic Open wounds of extremities (4 sources) Open bite of left hand, initial encounter; Translations: [OPEN BITE LEFT HAND INITIAL ENC] Onset: 01-14-2022 Episodic Other aftercare (20 sources) Drug therapy finding; Translations: [Long-term (current) use of other medications] Onset: 07-09-2023 07-09-2023 Episodic Other aftercare (3 sources) [facility] (current) use of anticoagulants; Translations: [INTERMEDIATE CURRNT USE ANTICOAGULANTS] Onset: 12-18-2021 Episodic Other circulatory disease (20 sources) Elevated blood pressure; Translations: [Elevated blood-pressure reading, without diagnosis of hypertension] Onset: 12-08-2023 12-22-2020 Episodic Other circulatory disease (20 sources) H/O: atrial fibrillation; Translations: [Personal history of other diseases of the circulatory system] Onset: 12-08-2023 04-01-2019 Episodic Other gastrointestinal disorders (20 sources) Constipation; Translations: [Constipation, unspecified] Onset: 03-04-2023 06-06-2022 Episodic Other gastrointestinal disorders (4 sources) Diarrhea, unspecified; Translations: [DIARRHEA UNSPECIFIED] Onset: 12-16-2021 Episodic Other lower respiratory disease (20 sources) Dyspnea on exertion; Translations: [Other forms of dyspnea] Onset: 12-08-2023 01-14-2019 Episodic Other nutritional; endocrine; and metabolic disorders (15 sources) Obesity; Translations: [Obesity, unspecified] Onset: 07-09-2023 Resolved: 09-18-2023 07-09-2023 Chronic Other upper respiratory disease (20 sources) Feeling of lump in throat; Translations: [Globus sensation] Onset: 03-04-2023 03-04-2023 Episodic Residual codes; unclassified (20 sources) Bilateral lower limb edema; Translations: [Localized edema] Onset: 12-08-2023 04-01-2019 Episodic Residual codes; unclassified (3 sources) Other specified health status; Translations: [Other specified health status] Onset: 09-18-2023 Episodic Skin and subcutaneous tissue infections (1 source) Cellulitis of left upper limb; Translations: [CELLULITIS OF LEFT UPPER LIMB] Onset: 01-16-2022 Episodic Unclassified (10 sources) Never smoked tobacco; Translations: [Never a smoker] Unclassified (20 sources) Onset: 09-18-2023 Resolved: 09-07-2024 09-18-2023 Urinary tract infections (20 sources) Cystitis; Translations: [Cystitis, unspecified without hematuria] Onset: 12-08-2023 12-09-2021 Episodic Varicose veins of lower extremity (20 sources) Varicose veins of lower limb co-occurrent with edema; Translations: [Varicose veins of bilateral lower extremities with other complications] Onset: 03-04-2023 03-04-2023 Episodic Viral infection (20 sources) Postherpetic neuralgia; Translations: [Other postherpetic nervous system involvement] Onset: 12-08-2023 11-10-2020 Episodic Results Test Name Value Interpretation Reference Range Facility Basic Metabolic Panelon 03-28 Anion gap [Moles/Vol] 9.4 mmol/L Normal 6.0-15.0 [facility] Comment on above: Performed By: #### B MP, CBC #### [address] Calcium [Mass/Vol] 8.5 mg/dL Low 8.6-10.3 [facility] Comment on above: Performed By: #### B MP, CBC #### [address] Chloride [Moles/Vol] 109 mmol/L High 98-107 [facility] Comment on above: Performed By: #### B MP, CBC #### [address] CO2 [Moles/Vol] 25.2 mmol/L Normal 21.0-31.0 [facility] Comment on above: Performed By: #### B MP, CBC #### [address] Creatinine [Mass/Vol] 0.96 mg/dL Normal 0.60-1.20 [facility] Comment on above: Performed By: #### B MP, CBC #### [address] Creatinine Clr Calc Pharmacy 47.30 Normal [facility] Comment on above: Result Comment: PERF ORMED BY: [place] [address] PATHOLOGIST KIER DRIER RAUL WETZEL M.D. Performed By: #### B MP, CBC #### [address] GFR/1.73 sq M.predicted MDRD (S/P/Bld) [Vol rate/Area] 58.705 mL/min/{1.73_m2} Normal [facility] Comment on above: Performed By: #### B MP, CBC #### [address] Glucose [Mass/Vol] 108 mg/dL High 70-100 [facility] Comment on above: Result Comment: [facility] Glucose Reference Range is dependent on time and content of last meal. Glucose of more than 200 mg/dL in a nonstressed, ambulatory subject supports the diagnosis of Diabetes Mellitus. ADA recommended reference range Performed By: #### B MP, CBC #### [address] Potassium [Moles/Vol] 4.6 mmol/L Normal 3.5-5.1 [facility] Comment on above: Performed By: #### B MP, CBC #### [address] Sodium [Moles/Vol] 139 mmol/L Normal 136-145 [facility] Comment on above: Performed By: #### B MP, CBC #### [address] Urea nitrogen [Mass/Vol] 15 mg/dL Normal 7-25 [facility] Comment on above: Performed By: #### B MP, CBC #### [address] Complete Blood Count Auto Di ffon 04-13-2025 Basophils (Bld) [#/Vol] 0.0 10*3/uL Normal 0.0-0.2 [facility] Comment on above: Result Comment: PERF ORMED BY: [place] [address] PATHOLOGIST KIER DRIER RAUL WETZEL M.D. Performed By: #### B MP, CBC #### [place] [address] [place] Basophils/100 WBC (Bld) 0.3 % Normal . [facility] Comment on above: Performed By: #### B MP, CBC #### [place] [address] [place] Eosinophils (Bld) [#/Vol] 0.2 10*3/uL Normal 0.0-0.45 [facility] Comment on above: Performed By: #### B MP, CBC #### [address] Eosinophils/100 WBC (Bld) 2.6 % Normal . [facility] Comment on above: Performed By: #### B MP, CBC #### [address] Erythrocyte distribution width (RBC) [Ratio] 17.6 % High 11.9-15.3 [facility] Comment on above: Performed By: #### B MP, CBC #### [address] Hematocrit (Bld) [Volume fraction] 26.3 % Low 34.0-46.4 [facility] Comment on above: Performed By: #### B MP, CBC #### [address] Hemoglobin (Bld) [Mass/Vol] 8.6 g/dL Low 11.8-15.4 [facility] Comment on above: Performed By: #### B MP, CBC #### [address] Lymphocytes (Bld) [#/Vol] 0.9 10*3/uL Low 1.00-4.8 [facility] Comment on above: Performed By: #### B MP, CBC #### [address] Lymphocytes/100 WBC (Bld) 14.8 % Normal . [facility] Comment on above: Performed By: #### B MP, CBC #### [address] MCH (RBC) [Entitic mass] 24.6 pg Low 24.7-34.3 [facility] Comment on above: Performed By: #### B MP, CBC #### [address] MCV (RBC) [Entitic vol] 75.3 fL Low 80-100 [facility] Comment on above: Performed By: #### B MP, CBC #### [address] Mean Corpuscular HGB Conc 32.6 g/dL Normal 32.0-35.0 [facility] Comment on above: Performed By: #### B MP, CBC #### [address] Monocytes (Bld) [#/Vol] 0.6 10*3/uL Normal 0.0-0.8 [facility] Comment on above: Performed By: #### B MP, CBC #### [address] Monocytes/100 WBC (Bld) 9.0 % Normal . [facility] Comment on above: Performed By: #### B MP, CBC #### [address] Neutrophils (Bld) [#/Vol] 4.6 10*3/uL Normal 1.8-7.7 [facility] Comment on above: Performed By: #### B MP, CBC #### [address] Neutrophils/100 WBC (Bld) 73.3 % Normal . [facility] Comment on above: Performed By: #### B MP, CBC #### [address] NRBC% 0.1 /100{WBC} Normal 0-0.5 [facility] Comment on above: Performed By: #### B MP, CBC #### [address] Platelet mean volume (Bld) [Entitic vol] 7.3 fL Normal 6.3-10.7 [facility] Comment on above: Performed By: #### B MP, CBC #### [address] Platelets (Bld) [#/Vol] 342 10*3/uL Normal 150-450 [facility] Comment on above: Performed By: #### B MP, CBC #### [address] RBC (Bld) [#/Vol] 3.49 10*6/uL Low 3.60-5.00 [facility] Comment on above: Performed By: #### B MP, CBC #### [address] WBC (Bld) [#/Vol] 6.3 10*3/uL Normal 3.8-11.6 [facility] Comment on above: Performed By: #### B MP, CBC #### [address] White Blood Count 6.3 [CFU]/mL Normal 3.8-11.6 [facility] Comment on above: Performed By: #### B MP, CBC #### [address] Dipstick and Microscopicon 0 04-12-2025 Appearance (U) Clear Normal Clear [facility] Comment on above: Order Comment: Name Collection Type:: Clean-Voided Midstream Performed By: #### A DDONUAPLUS #### [address] Bacteria,Urine None Seen Normal None Seen [facility] Comment on above: Order Comment: Name Collection Type:: Clean-Voided Midstream Performed By: #### A DDONUAPLUS #### [address] Bilirubin,Urine Negative Normal Negative [facility] Comment on above: Order Comment: Name Collection Type:: Clean-Voided Midstream Performed By: #### A DDONUAPLUS #### [address] Color (U) Colorless Normal Yellow [facility] Comment on above: Order Comment: Name Collection Type:: Clean-Voided Midstream Performed By: #### A DDONUAPLUS #### [place] [address] [place] Glucose Ql (U) Normal Normal Normal [facility] Comment on above: Order Comment: Name Collection Type:: Clean-Voided Midstream Performed By: #### A DDONUAPLUS #### [address] Hyaline Casts,Urine None Normal 0-8 [facility] Comment on above: Order Comment: Name Collection Type:: Clean-Voided Midstream Result Comment: PERF ORMED BY: [place] [address] PATHOLOGIST KIER DRIER RAUL WETZEL M.D. Performed By: #### A DDONUAPLUS #### [address] Ketones Ql (U) Negative Normal Negative [facility] Comment on above: Order Comment: Name Collection Type:: Clean-Voided Midstream Performed By: #### A DDONUAPLUS #### [address] Leukocyte esterase Test strip Ql (U) 1+ Normal Negative [facility] Comment on above: Order Comment: Name Collection Type:: Clean-Voided Midstream Performed By: #### A DDONUAPLUS #### [address] Nitrite,Urine Negative Normal Negative [facility] Comment on above: Order Comment: Name Collection Type:: Clean-Voided Midstream Performed By: #### A DDONUAPLUS #### [place] [address] [place] Occult Blood,Urine Negative Normal Negative [facility] Comment on above: Order Comment: Name Collection Type:: Clean-Voided Midstream Result Comment: PERF ORMED BY: [place] [address] PATHOLOGIST KIER DRIER RAUL WETZEL M.D. Performed By: #### A DDONUAPLUS #### [address] pH (U) 6.0 [pH] Normal 5.0-9.0 [facility] Comment on above: Order Comment: Name Collection Type:: Clean-Voided Midstream Performed By: #### A DDONUAPLUS #### [place] [address] [place] Protein,Urine Negative Normal Negative [facility] Comment on above: Order Comment: Name Collection Type:: Clean-Voided Midstream Performed By: #### A DDONUAPLUS #### [place] [address] [place] RBC,Urine 1-2 Normal 0-4 [facility] Comment on above: Order Comment: Name Collection Type:: Clean-Voided Midstream Performed By: #### A DDONUAPLUS #### [address] Specificy [place],Urine 1.010 Normal 1.001-1.03 0 [facility] Comment on above: Order Comment: Name Collection Type:: Clean-Voided Midstream Performed By: #### A DDONUAPLUS #### [address] Squamous Epithelial Cell,Urine 1-2 Normal 0-2 [facility] Comment on above: Order Comment: Name Collection Type:: Clean-Voided Midstream Performed By: #### A DDONUAPLUS #### [place] [address] [place] Urobilinogen,Urine Normal Normal Normal [facility] Comment on above: Order Comment: Name Collection Type:: Clean-Voided Midstream Performed By: #### A DDONUAPLUS #### [place] [address] [place] WBC,Urine 3-4 Normal 0-4 [facility] Comment on above: Order Comment: Name Collection Type:: Clean-Voided Midstream Performed By: #### A DDONUAPLUS #### [address] Quick Strepon 04-12-2025 Quick Strep Streptococcus pyogen es Ag [Presence] in Throat by Rapid immunoassay Negative for Group A Strep Antigen Note 1 NOTE 2 Results are those of a screening test. NOTE 3 If clinically indicated please order a culture. NOTE 4 NOTE 5 Reference range = Negative PERFORMED BY: [place] [address] PATHOLOGIST KIER DRIER RAUL WETZEL M.D. Normal [facility] Comment on above: Performed By: #### Q S #### [address] Throat Cultureon 04-12-2025 Throat culture ORGANISM: Xi al bicans (O:CANALB) Quantity of Growth Light Growth PERFORMED BY: [place] [address] PATHOLOGIST KIER DRIER RAUL WETZEL M.D. Normal [facility] Comment on above: Performed By: #### C UT #### [address] chest wo conon 04-10-2025 CT chest wo con [facility] [place] [address] CT Scan Report Signed Patient: Jessy Dow MR#: [id number] [birth year] : 1940 Acct:[id number] Age/Sex: 84 / F ADM Date: 04/05/25 Loc: Room: 6A3696-0 Type: ADM IN Attending Dr: Bernard Lock MD Copies to: OLIVIA Zhao MD Ordering Provider: Irais Nova APRN Date of Service: 04/10/25 CT/CT chest wo con: large hematoma, incr pain CT chest wo con 04/10/2025 10:29 AM SIGN AND SYMPTOMS: Left-sided rib fractures, hemothorax, increasing chest pain TECHNIQUE: Multidetector CT axial slices of the chest were obtained without IV contrast. Multiplanar reformats were performed and viewed on a separate workstation and reviewed to further define anatomy and possible pathology. CT was performed with one or more of the following dose reduction techniques: Automated exposure control, adjustment of the mA and/or kV according to patient size, or use of iterative reconstruction technique. COMPARISON: 04/01/2025. FINDINGS: Lower neck: Thyroid gland within normal limits, no supraclavicle adenopathy. Vessels: Atherosclerotic changes are noted in the thoracic aorta and coronary arteries. Mediastinum and Ree: There are a few calcified granulomas in the left hilum. Heart: Normal size. No pericardial effusion. Airways: Within normal limits Lungs: There is consolidation in the right lower lobe which is slightly worse. Pleura: There is a moderate left-sided pleural effusion which has increased in size when compared to the prior exam. Chest Wall: There is a contusion along the left lateral and posterior chest wall. Upper Abdomen: Calcified granulomas are noted in the spleen. There is an 11 mm nodule in the left adrenal gland which is unchanged. Bones: There is redemonstration of fractures of the left posterior ninth and 10th ribs. Minimally displaced fractures are also now visualized in the lateral aspect of the left sixth, seventh, and eighth ribs. CT/CT chest wo con IMPRESSION: There is redemonstration of fractures of the left posterior ninth and 10th ribs. Minimally displaced fractures are also now visualized in the lateral aspect of the left sixth, seventh, and eighth ribs. Correlation with interval trauma to the chest is recommended. There is a moderate left-sided pleural effusion which has increased in size when compared to the prior exam. There is consolidation in the right lower lobe which is slightly worse. There is a contusion along the left lateral and posterior chest wall. Impression dictated by: Devin Diallo M.D. 04/10/2025 4:07 PM Dictation Location: [place] [address] Transcribed By: [facility] 04/10/25 5248 Dictated By: Devin Diallo II, MD 04/10/25 7819 Signed By: 04/10/25 9389 Normal [facility] Basic Metabolic Panelon 07 Anion gap [Moles/Vol] 9.9 mmol/L Normal 6.0-15.0 [facility] Comment on above: Performed By: #### A DDONUAPLUS #### [address] Calcium [Mass/Vol] 8.6 mg/dL Normal 8.6-10.3 [facility] Comment on above: Performed By: #### A DDONUAPLUS #### [facility] [address] [place] [address] [place] Chloride [Moles/Vol] 107 mmol/L Normal 98-107 [facility] Comment on above: Performed By: #### A DDONUAPLUS #### [address] CO2 [Moles/Vol] 25.8 mmol/L Normal 21.0-31.0 [facility] Comment on above: Performed By: #### A DDONUAPLUS #### [address] Creatinine [Mass/Vol] 0.94 mg/dL Normal 0.60-1.20 [facility] Comment on above: Performed By: #### A DDONUAPLUS #### [place] [address] [place] Creatinine Clr Calc Pharmacy 48.25 Normal [facility] Comment on above: Result Comment: PERF ORMED BY: [place] [address] PATHOLOGIST KIER DRIER RAUL WETZEL M.D. Performed By: #### A DDONUAPLUS #### [place] [address] [place] GFR/1.73 sq M.predicted MDRD (S/P/Bld) [Vol rate/Area] mL/min/{1.73_m2} Normal [facility] Comment on above: Performed By: #### A DDONUAPLUS #### [address] Glucose [Mass/Vol] 111 mg/dL High 70-100 [facility] Comment on above: Result Comment: [place] Glucose Reference Range is dependent on time and content of last meal. Glucose of more than 200 mg/dL in a nonstressed, ambulatory subject supports the diagnosis of Diabetes Mellitus. ADA recommended reference range Performed By: #### A DDONUAPLUS #### [address] Potassium [Moles/Vol] 4.7 mmol/L Normal 3.5-5.1 [facility] Comment on above: Performed By: #### A DDONUAPLUS #### [address] Sodium [Moles/Vol] 138 mmol/L Normal 136-145 [facility] Comment on above: Performed By: #### A DDONUAPLUS #### [address] Urea nitrogen [Mass/Vol] 15 mg/dL Normal 7-25 [facility] Comment on above: Performed By: #### A DDONUAPLUS #### [address] Complete Blood Count Auto Di ffon 04-09-2025 Basophils (Bld) [#/Vol] 0.0 10*3/uL Normal 0.0-0.2 [facility] Comment on above: Result Comment: PERF ORMED BY: [place] [address] PATHOLOGIST KIER DRIER RAUL WETZEL M.D. Performed By: #### A DDONUAPLUS #### [place] [address] [place] Basophils/100 WBC (Bld) 0.4 % Normal . [facility] Comment on above: Performed By: #### A DDONUAPLUS #### [place] [address] [place] Eosinophils (Bld) [#/Vol] 0.2 10*3/uL Normal 0.0-0.45 [facility] Comment on above: Performed By: #### A DDONUAPLUS #### [address] Eosinophils/100 WBC (Bld) 2.8 % Normal . [facility] Comment on above: Performed By: #### A DDONUAPLUS #### [address] Erythrocyte distribution width (RBC) [Ratio] 17.3 % High 11.9-15.3 [facility] Comment on above: Performed By: #### A DDONUAPLUS #### [address] Hematocrit (Bld) [Volume fraction] 26.0 % Low 34.0-46.4 [facility] Comment on above: Performed By: #### A DDONUAPLUS #### [address] Hemoglobin (Bld) [Mass/Vol] 8.4 g/dL Low 11.8-15.4 [facility] Comment on above: Performed By: #### A DDONUAPLUS #### [address] Lymphocytes (Bld) [#/Vol] 0.7 10*3/uL Low 1.00-4.8 [facility] Comment on above: Performed By: #### A DDONUAPLUS #### [address] Lymphocytes/100 WBC (Bld) 12.0 % Normal . [facility] Comment on above: Performed By: #### A DDONUAPLUS #### [address] MCH (RBC) [Entitic mass] 24.0 pg Low 24.7-34.3 [facility] Comment on above: Performed By: #### A DDONUAPLUS #### [address] MCV (RBC) [Entitic vol] 74.7 fL Low 80-100 [facility] Comment on above: Performed By: #### A DDONUAPLUS #### [address] Mean Corpuscular HGB Conc 32.2 g/dL Normal 32.0-35.0 [facility] Comment on above: Performed By: #### A DDONUAPLUS #### [place] [address] [place] Monocytes (Bld) [#/Vol] 0.5 10*3/uL Normal 0.0-0.8 [facility] Comment on above: Performed By: #### A DDONUAPLUS #### [place] [address] [place] Monocytes/100 WBC (Bld) 8.4 % Normal . [facility] Comment on above: Performed By: #### A DDONUAPLUS #### [place] [address] [place] Neutrophils (Bld) [#/Vol] 4.6 10*3/uL Normal 1.8-7.7 [facility] Comment on above: Performed By: #### A DDONUAPLUS #### [address] Neutrophils/100 WBC (Bld) 76.4 % Normal . [facility] Comment on above: Performed By: #### A DDONUAPLUS #### [place] [address] [place] NRBC% 0.0 /100{WBC} Normal 0-0.5 [facility] Comment on above: Performed By: #### A DDONUAPLUS #### [address] Platelet mean volume (Bld) [Entitic vol] 7.7 fL Normal 6.3-10.7 [facility] Comment on above: Performed By: #### A DDONUAPLUS #### [place] [address] [place] Platelets (Bld) [#/Vol] 327 10*3/uL Normal 150-450 [facility] Comment on above: Performed By: #### A DDONUAPLUS #### [address] RBC (Bld) [#/Vol] 3.48 10*6/uL Low 3.60-5.00 [facility] Comment on above: Performed By: #### A DDONUAPLUS #### [address] WBC (Bld) [#/Vol] 6.0 10*3/uL Normal 3.8-11.6 [facility] Comment on above: Performed By: #### A DDONUAPLUS #### [facility] [address] [place] [address] White Blood Count 6.0 [CFU]/mL Normal 3.8-11.6 [facility] Comment on above: Performed By: #### A DDONUAPLUS #### [address] XR chest 1V portableon 04-08 XR chest 1V portable [facility] [place] [address] [place] [address] XRay Report Signed Patient: Jessy Dow MR#: [id number] 76 : 1940 Acct:[id number] Age/Sex: 84 / F ADM Date: 04/05/25 Loc: Room: [address] [place] [address] Type: ADM IN Attending Dr: Bernard Lock MD Copies to: OLIVIA Zhao MD Ordering Provider: Irais Nova APRN Date of Service: 04/08/25 XR/XR chest 1V portable: pl effusion XR chest 1V portable 04/08/2025 5:41 AM SIGNS AND SYMPTOMS: Follow-up pleural effusions PROTOCOL: Frontal radiograph of the chest COMPARISON: 04/04/2025 FINDINGS: The trachea is midline. The heart and mediastinal structures are within normal limits. Similar pleural-parenchymal opacities noted at the left lung base. The bony thorax is intact. XR/XR chest 1V portable IMPRESSION: Unchanged pleural-parenchymal opacity/effusion at the left lung base. Impression dictated by: Devin Diallo M.D. 04/08/2025 9:01 AM Dictation Location: [place] [address] Transcribed By: [facility] 04/08/25 0901 Dictated By: Devin Diallo II, MD 04/08/25 0854 Signed By: 04/08/25 0901 Normal [facility] Complete Blood Count Auto Di ffon 04-06-2025 Basophils (Bld) [#/Vol] 0.1 10*3/uL Normal 0.0-0.2 [facility] Comment on above: Result Comment: PERF ORMED BY: [place] [address] PATHOLOGIST KIER DRIER RAUL WETZEL M.D. Performed By: #### B MP, CBC #### [address] Basophils/100 WBC (Bld) 0.8 % Normal . [facility] Comment on above: Performed By: #### B MP, CBC #### [address] Eosinophils (Bld) [#/Vol] 0.2 10*3/uL Normal 0.0-0.45 [facility] Comment on above: Performed By: #### B MP, CBC #### [address] Eosinophils/100 WBC (Bld) 2.9 % Normal . [facility] Comment on above: Performed By: #### B MP, CBC #### [address] Erythrocyte distribution width (RBC) [Ratio] 17.2 % High 11.9-15.3 [facility] Comment on above: Performed By: #### B MP, CBC #### [address] Hematocrit (Bld) [Volume fraction] 25.8 % Low 34.0-46.4 [facility] Comment on above: Performed By: #### B MP, CBC #### [address] Hemoglobin (Bld) [Mass/Vol] 8.3 g/dL Low 11.8-15.4 [facility] Comment on above: Performed By: #### B MP, CBC #### [place] [address] [place] Lymphocytes (Bld) [#/Vol] 0.6 10*3/uL Low 1.00-4.8 [facility] Comment on above: Performed By: #### B MP, CBC #### [address] Lymphocytes/100 WBC (Bld) 10.1 % Normal . [facility] Comment on above: Performed By: #### B MP, CBC #### [address] MCH (RBC) [Entitic mass] 24.1 pg Low 24.7-34.3 [facility] Comment on above: Performed By: #### B MP, CBC #### [address] MCV (RBC) [Entitic vol] 75.3 fL Low 80-100 [facility] Comment on above: Performed By: #### B MP, CBC #### [address] Mean Corpuscular HGB Conc 32.1 g/dL Normal 32.0-35.0 [facility] Comment on above: Performed By: #### B MP, CBC #### [address] Monocytes (Bld) [#/Vol] 0.6 10*3/uL Normal 0.0-0.8 [facility] Comment on above: Performed By: #### B MP, CBC #### [address] Monocytes/100 WBC (Bld) 9.8 % Normal . [facility] Comment on above: Performed By: #### B MP, CBC #### [address] Neutrophils (Bld) [#/Vol] 4.9 10*3/uL Normal 1.8-7.7 [facility] Comment on above: Performed By: #### B MP, CBC #### [address] Neutrophils/100 WBC (Bld) 76.4 % Normal . [facility] Comment on above: Performed By: #### B MP, CBC #### [address] NRBC% 0.1 /100{WBC} Normal 0-0.5 [facility] Comment on above: Performed By: #### B MP, CBC #### [address] Platelet mean volume (Bld) [Entitic vol] 8.5 fL Normal 6.3-10.7 [facility] Comment on above: Performed By: #### B MP, CBC #### [address] Platelets (Bld) [#/Vol] 259 10*3/uL Normal 150-450 [facility] Comment on above: Performed By: #### B MP, CBC #### [address] RBC (Bld) [#/Vol] 3.43 10*6/uL Low 3.60-5.00 [facility] Comment on above: Performed By: #### B MP, CBC #### [address] WBC (Bld) [#/Vol] 6.4 10*3/uL Normal 3.8-11.6 [facility] Comment on above: Performed By: #### B MP, CBC #### [address] White Blood Count 6.4 [CFU]/mL Normal 3.8-11.6 [facility] Comment on above: Performed By: #### B MP, CBC #### [address] Comprehensive Metabolic Pane barbara 04-06-2025 Albumin [Mass/Vol] 3.3 g/dL Low 3.5-5.7 [facility] Comment on above: Performed By: #### B MP, CBC #### [address] Albumin/Globulin [Mass ratio] 1.3 {ratio} Normal [facility] Comment on above: Performed By: #### B MP, CBC #### [address] ALP [Catalytic activity/Vol] 71 U/L Normal 34-104 [facility] Comment on above: Performed By: #### B MP, CBC #### [address] ALT [Catalytic activity/Vol] 8 U/L Normal 7-52 [facility] Comment on above: Performed By: #### B MP, CBC #### [address] Anion gap [Moles/Vol] 10.1 mmol/L Normal 6.0-15.0 [facility] Comment on above: Performed By: #### B MP, CBC #### [address] AST [Catalytic activity/Vol] 16 U/L Normal 13-39 [facility] Comment on above: Performed By: #### B MP, CBC #### [address] Bilirubin [Mass/Vol] 0.5 mg/dL Normal 0.3-1.0 [facility] Comment on above: Performed By: #### B MP, CBC #### [place] [address] [place] Calcium [Mass/Vol] 8.4 mg/dL Low 8.6-10.3 [facility] Comment on above: Performed By: #### B MP, CBC #### [place] [address] [place] Chloride [Moles/Vol] 108 mmol/L High 98-107 [facility] Comment on above: Performed By: #### B MP, CBC #### [address] CO2 [Moles/Vol] 21.7 mmol/L Normal 21.0-31.0 [facility] Comment on above: Performed By: #### B MP, CBC #### [address] Creatinine [Mass/Vol] 1.02 mg/dL Normal 0.60-1.20 [facility] Comment on above: Performed By: #### B MP, CBC #### [place] [address] [place] Creatinine Clr Calc Pharmacy 44.47 Normal [facility] Comment on above: Performed By: #### B MP, CBC #### [place] [address] [place] GFR/1.73 sq M.predicted MDRD (S/P/Bld) [Vol rate/Area] 54.586 mL/min/{1.73_m2} Normal [facility] Comment on above: Performed By: #### B MP, CBC #### [address] Globulin (S) [Mass/Vol] 2.6 g/dL Normal [facility] Comment on above: Performed By: #### B MP, CBC #### [address] Glucose [Mass/Vol] 101 mg/dL High 70-100 [facility] Comment on above: Result Comment: [facility] Glucose Reference Range is dependent on time and content of last meal. Glucose of more than 200 mg/dL in a nonstressed, ambulatory subject supports the diagnosis of Diabetes Mellitus. ADA recommended reference range Performed By: #### B MP, CBC #### [address] Potassium [Moles/Vol] 4.8 mmol/L Normal 3.5-5.1 [facility] Comment on above: Performed By: #### B MP, CBC #### [address] Protein [Mass/Vol] 5.9 g/dL Low 6.4-8.9 [facility] Comment on above: Performed By: #### B MP, CBC #### [address] Sodium [Moles/Vol] 135 mmol/L Low 136-145 [facility] Comment on above: Performed By: #### B MP, CBC #### [address] Urea nitrogen [Mass/Vol] 28 mg/dL High 7-25 [facility] Comment on above: Performed By: #### B MP, CBC #### [address] Prealbuminon 04-06-2025 Prealbumin [Mass/Vol] 9.3 mg/dL Low 17.0-34.0 [facility] Comment on above: Result Comment: PERF ORMED BY: [place] [address] PATHOLOGIST KIER DRIER RAUL WETZEL M.D. Performed By: #### B MP, CBC #### [address] Basic Metabolic Panelon 07-0 Anion gap [Moles/Vol] 11.5 mmol/L Normal 6.0-15.0 [facility] Comment on above: Performed By: #### A DDONUAPLUS #### [address] Calcium [Mass/Vol] 8.7 mg/dL Normal 8.6-10.3 [facility] Comment on above: Performed By: #### A DDONUAPLUS #### [address] Chloride [Moles/Vol] 107 mmol/L Normal 98-107 [facility] Comment on above: Performed By: #### A DDONUAPLUS #### [address] CO2 [Moles/Vol] 21.6 mmol/L Normal 21.0-31.0 [facility] Comment on above: Performed By: #### A DDONUAPLUS #### [address] Creatinine [Mass/Vol] 1.31 mg/dL Significan t change down 0.60-1.20 [facility] Comment on above: Performed By: #### A DDONUAPLUS #### [place] [address] [place] Creatinine Clr Calc Pharmacy 34.97 Normal [facility] Comment on above: Result Comment: PERF ORMED BY: [place] [address] PATHOLOGIST KIER DRIER RAUL WETZEL M.D. Performed By: #### A DDONUAPLUS #### [place] [address] [place] GFR/1.73 sq M.predicted MDRD (S/P/Bld) [Vol rate/Area] 40.427 mL/min/{1.73_m2} Normal [facility] Comment on above: Performed By: #### A DDONUAPLUS #### [place] [address] [place] Glucose [Mass/Vol] 104 mg/dL High 70-100 [facility] Comment on above: Result Comment: [place] Glucose Reference Range is dependent on time and content of last meal. Glucose of more than 200 mg/dL in a nonstressed, ambulatory subject supports the diagnosis of Diabetes Mellitus. ADA recommended reference range Performed By: #### A DDONUAPLUS #### [place] [address] [place] Potassium [Moles/Vol] 5.1 mmol/L Normal 3.5-5.1 [facility] Comment on above: Performed By: #### A DDONUAPLUS #### [place] [address] [place] Sodium [Moles/Vol] 135 mmol/L Low 136-145 [facility] Comment on above: Performed By: #### A DDONUAPLUS #### [place] [address] [place] Urea nitrogen [Mass/Vol] 40 mg/dL High 7-25 [facility] Comment on above: Performed By: #### A DDONUAPLUS #### [address] Complete Blood Count Auto Di ffon 04-05-2025 Basophils (Bld) [#/Vol] 0.0 10*3/uL Normal 0.0-0.2 [facility] Comment on above: Order Comment: Name Collection Type:: Clean-Voided Midstream Result Comment: PERF ORMED BY: [place] [address] PATHOLOGIST KIER DRIER RAUL WETZEL M.D. Performed By: #### A DDONUAPLUS #### [address] Basophils/100 WBC (Bld) 0.3 % Normal . [facility] Comment on above: Order Comment: Name Collection Type:: Clean-Voided Midstream Performed By: #### A DDONUAPLUS #### [address] Eosinophils (Bld) [#/Vol] 0.1 10*3/uL Normal 0.0-0.45 [facility] Group Comment on above: Order Comment: Name Collection Type:: Clean-Voided Midstream Performed By: #### A DDONUAPLUS #### [address] Eosinophils/100 WBC (Bld) 2.1 % Normal . [facility] Comment on above: Order Comment: Name Collection Type:: Clean-Voided Midstream Performed By: #### A DDONUAPLUS #### [address] Erythrocyte distribution width (RBC) [Ratio] 17.4 % High 11.9-15.3 [facility] Comment on above: Order Comment: Name Collection Type:: Clean-Voided Midstream Performed By: #### A DDONUAPLUS #### [address] Hematocrit (Bld) [Volume fraction] 27.2 % Low 34.0-46.4 [facility] Comment on above: Order Comment: Name Collection Type:: Clean-Voided Midstream Performed By: #### A DDONUAPLUS #### [address] Hemoglobin (Bld) [Mass/Vol] 8.6 g/dL Low 11.8-15.4 [facility] Comment on above: Order Comment: Name Collection Type:: Clean-Voided Midstream Performed By: #### A DDONUAPLUS #### [address] Lymphocytes (Bld) [#/Vol] 0.4 10*3/uL Low 1.00-4.8 [facility] Comment on above: Order Comment: Name Collection Type:: Clean-Voided Midstream Performed By: #### A DDONUAPLUS #### [place] [address] [place] Lymphocytes/100 WBC (Bld) 5.9 % Normal . [facility] Comment on above: Order Comment: Name Collection Type:: Clean-Voided Midstream Performed By: #### A DDONUAPLUS #### [address] MCH (RBC) [Entitic mass] 23.8 pg Low 24.7-34.3 [facility] Comment on above: Order Comment: Name Collection Type:: Clean-Voided Midstream Performed By: #### A DDONUAPLUS #### [address] MCV (RBC) [Entitic vol] 75.3 fL Low 80-100 [facility] Comment on above: Order Comment: Name Collection Type:: Clean-Voided Midstream Performed By: #### A DDONUAPLUS #### [address] Mean Corpuscular HGB Conc 31.7 g/dL Low 32.0-35.0 [facility] Comment on above: Order Comment: Name Collection Type:: Clean-Voided Midstream Performed By: #### A DDONUAPLUS #### [address] Monocytes (Bld) [#/Vol] 0.6 10*3/uL Normal 0.0-0.8 [facility] Comment on above: Order Comment: Name Collection Type:: Clean-Voided Midstream Performed By: #### A DDONUAPLUS #### [place] [address] [place] Monocytes/100 WBC (Bld) 7.7 % Normal . [facility] Comment on above: Order Comment: Name Collection Type:: Clean-Voided Midstream Performed By: #### A DDONUAPLUS #### [place] [address] [place] Neutrophils (Bld) [#/Vol] 6.0 10*3/uL Normal 1.8-7.7 [facility] Comment on above: Order Comment: Name Collection Type:: Clean-Voided Midstream Performed By: #### A DDONUAPLUS #### [place] [address] [place] Neutrophils/100 WBC (Bld) 84.0 % Normal . [facility] Comment on above: Order Comment: Name Collection Type:: Clean-Voided Midstream Performed By: #### A DDONUAPLUS #### [place] [address] [place] NRBC% 0.0 /100{WBC} Normal 0-0.5 [facility] Comment on above: Order Comment: Name Collection Type:: Clean-Voided Midstream Performed By: #### A DDONUAPLUS #### [place] [address] [place] Platelet mean volume (Bld) [Entitic vol] 8.3 fL Normal 6.3-10.7 [facility] Comment on above: Order Comment: Name Collection Type:: Clean-Voided Midstream Performed By: #### A DDONUAPLUS #### [place] [address] [place] Platelets (Bld) [#/Vol] 253 10*3/uL Normal 150-450 [facility] Comment on above: Order Comment: Name Collection Type:: Clean-Voided Midstream Performed By: #### A DDONUAPLUS #### [address] RBC (Bld) [#/Vol] 3.61 10*6/uL Normal 3.60-5.00 [facility] Comment on above: Order Comment: Name Collection Type:: Clean-Voided Midstream Performed By: #### A DDONUAPLUS #### [address] WBC (Bld) [#/Vol] 7.2 10*3/uL Normal 3.8-11.6 [facility] Comment on above: Order Comment: Name Collection Type:: Clean-Voided Midstream Performed By: #### A DDONUAPLUS #### [address] White Blood Count 7.2 [CFU]/mL Normal 3.8-11.6 [facility] Comment on above: Order Comment: Name Collection Type:: Clean-Voided Midstream Performed By: #### A DDONUAPLUS #### [address] Basic Metabolic Panelon 07-0 8-2024 Anion gap [Moles/Vol] 12.8 mmol/L Normal 6.0-15.0 Th e [facility] Comment on above: Performed By: #### B MP, CBC #### [address] Calcium [Mass/Vol] 8.3 mg/dL Low 8.6-10.3 [facility] Comment on above: Performed By: #### B MP, CBC #### [place] [address] [place] Chloride [Moles/Vol] 100 mmol/L Normal 98-107 [facility] Comment on above: Performed By: #### B MP, CBC #### [address] CO2 [Moles/Vol] 22.4 mmol/L Normal 21.0-31.0 [facility] Comment on above: Performed By: #### B MP, CBC #### [address] Creatinine [Mass/Vol] 1.96 mg/dL High 0.60-1.20 [facility] Comment on above: Performed By: #### B MP, CBC #### [address] Creatinine Clr Calc Pharmacy 23.37 Normal [facility] Comment on above: Result Comment: PERF ORMED BY: [place] [address] PATHOLOGIST KIER DRIER RAUL WETZEL M.D. Performed By: #### B MP, CBC #### [address] GFR/1.73 sq M.predicted MDRD (S/P/Bld) [Vol rate/Area] 24.929 mL/min/{1.73_m2} Normal [facility] Comment on above: Performed By: #### B MP, CBC #### [address] Glucose [Mass/Vol] 111 mg/dL High 70-100 [facility] Comment on above: Result Comment: [facility] Glucose Reference Range is dependent on time and content of last meal. Glucose of more than 200 mg/dL in a nonstressed, ambulatory subject supports the diagnosis of Diabetes Mellitus. ADA recommended reference range Performed By: #### B MP, CBC #### [place] [address] [place] Potassium [Moles/Vol] 5.2 mmol/L High 3.5-5.1 [facility] Comment on above: Performed By: #### B MP, CBC #### [place] [address] [place] Sodium [Moles/Vol] 130 mmol/L Low 136-145 [facility] Comment on above: Performed By: #### B MP, CBC #### [address] Urea nitrogen [Mass/Vol] 53 mg/dL High 7-25 [facility] Comment on above: Performed By: #### B MP, CBC #### [address] Anion gap [Moles/Vol] 10.7 mmol/L Normal 6.0-15.0 [facility] e [facility] Comment on above: Performed By: #### B MP, CBC #### [address] Calcium [Mass/Vol] 8.4 mg/dL Low 8.6-10.3 [facility] Comment on above: Performed By: #### B MP, CBC #### [address] Chloride [Moles/Vol] 100 mmol/L Normal 98-107 [facility] Comment on above: Performed By: #### B MP, CBC #### [address] CO2 [Moles/Vol] 25.8 mmol/L Normal 21.0-31.0 [facility] Comment on above: Performed By: #### B MP, CBC #### [address] Creatinine [Mass/Vol] 1.99 mg/dL Significan t change down 0.60-1.20 [facility] Comment on above: Performed By: #### B MP, CBC #### [address] Creatinine Clr Calc Pharmacy 22.97 Normal [facility] Comment on above: Result Comment: PERF ORMED BY: [place] [address] PATHOLOGIST KIER DRIER RAUL WETZEL M.D. Performed By: #### B MP, CBC #### [place] [address] [place] GFR/1.73 sq M.predicted MDRD (S/P/Bld) [Vol rate/Area] 24.478 mL/min/{1.73_m2} Normal [facility] Comment on above: Performed By: #### B MP, CBC #### [place] [address] [place] Glucose [Mass/Vol] 120 mg/dL High 70-100 [facility] Comment on above: Result Comment: [facility] Glucose Reference Range is dependent on time and content of last meal. Glucose of more than 200 mg/dL in a nonstressed, ambulatory subject supports the diagnosis of Diabetes Mellitus. ADA recommended reference range Performed By: #### B MP, CBC #### [address] Potassium [Moles/Vol] 5.5 mmol/L High 3.5-5.1 [facility] Comment on above: Performed By: #### B MP, CBC #### [address] Sodium [Moles/Vol] 131 mmol/L Low 136-145 [facility] Comment on above: Performed By: #### B MP, CBC #### [address] Urea nitrogen [Mass/Vol] 46 mg/dL High 7-25 [facility] Comment on above: Performed By: #### B MP, CBC #### [address] Complete Blood Count Auto Di ffon 04-04-2025 Basophils (Bld) [#/Vol] 0.0 10*3/uL Normal 0.0-0.2 [facility] Comment on above: Result Comment: PERF ORMED BY: [place] [address] PATHOLOGIST KIER DRIER RAUL WETZEL M.D. Performed By: #### B MP, CBC #### [place] [address] [place] Basophils/100 WBC (Bld) 0.3 % Normal . [facility] Comment on above: Performed By: #### B MP, CBC #### [address] Eosinophils (Bld) [#/Vol] 0.2 10*3/uL Normal 0.0-0.45 [facility] Comment on above: Performed By: #### B MP, CBC #### [address] Eosinophils/100 WBC (Bld) 2.0 % Normal . [facility] Comment on above: Performed By: #### B MP, CBC #### [address] Erythrocyte distribution width (RBC) [Ratio] 16.8 % High 11.9-15.3 [facility] Comment on above: Performed By: #### B MP, CBC #### [address] Hematocrit (Bld) [Volume fraction] 26.0 % Low 34.0-46.4 [facility] Comment on above: Performed By: #### B MP, CBC #### [address] Hemoglobin (Bld) [Mass/Vol] 8.4 g/dL Low 11.8-15.4 [facility] Comment on above: Performed By: #### B MP, CBC #### [address] Lymphocytes (Bld) [#/Vol] 0.7 10*3/uL Low 1.00-4.8 [facility] Comment on above: Performed By: #### B MP, CBC #### [address] Lymphocytes/100 WBC (Bld) 8.7 % Normal . [facility] Comment on above: Performed By: #### B MP, CBC #### [address] MCH (RBC) [Entitic mass] 24.2 pg Low 24.7-34.3 [facility] Comment on above: Performed By: #### B MP, CBC #### [address] MCV (RBC) [Entitic vol] 75.1 fL Low 80-100 [facility] Comment on above: Performed By: #### B MP, CBC #### [address] Mean Corpuscular HGB Conc 32.2 g/dL Normal 32.0-35.0 [facility] Comment on above: Performed By: #### B MP, CBC #### [address] Monocytes (Bld) [#/Vol] 0.9 10*3/uL High 0.0-0.8 [facility] Comment on above: Performed By: #### B MP, CBC #### [address] Monocytes/100 WBC (Bld) 11.5 % Normal . [facility] Comment on above: Performed By: #### B MP, CBC #### [address] Neutrophils (Bld) [#/Vol] 6.3 10*3/uL Normal 1.8-7.7 [facility] Comment on above: Performed By: #### B MP, CBC #### [address] Neutrophils/100 WBC (Bld) 77.5 % Normal . [facility] Comment on above: Performed By: #### B MP, CBC #### [address] NRBC% 0.0 /100{WBC} Normal 0-0.5 [facility] Comment on above: Performed By: #### B MP, CBC #### [address] Platelet mean volume (Bld) [Entitic vol] 8.4 fL Normal 6.3-10.7 [facility] Comment on above: Performed By: #### B MP, CBC #### [address] Platelets (Bld) [#/Vol] 217 10*3/uL Normal 150-450 [facility] Comment on above: Performed By: #### B MP, CBC #### [address] RBC (Bld) [#/Vol] 3.47 10*6/uL Low 3.60-5.00 [facility] Comment on above: Performed By: #### B MP, CBC #### [address] WBC (Bld) [#/Vol] 8.2 10*3/uL Normal 3.8-11.6 [facility] Comment on above: Performed By: #### B MP, CBC #### [address] White Blood Count 8.2 [CFU]/mL Normal 3.8-11.6 [facility] Comment on above: Performed By: #### B MP, CBC #### [address] Creatinine, Urine (Random)on 04-04-2025 Creatinine, Urine (Random) 68.00 mg/dL Normal [facility] Comment on above: Result Comment: No r eference range established PERFORMED BY: [place] [address] PATHOLOGIST KIER DRIER RAUL WETZEL M.D. Performed By: #### A DDONUAPLUS #### [address] Dipstick and Microscopicon 0 04-04-2025 Appearance (U) Clear Normal Clear [facility] Comment on above: Order Comment: Name Collection Type:: Clean-Voided Midstream Performed By: #### A DDONUAPLUS #### [address] Bacteria,Urine 1+ [HPF] Normal None Seen [facility] Comment on above: Order Comment: Name Collection Type:: Clean-Voided Midstream Performed By: #### A DDONUAPLUS #### [address] Bilirubin,Urine Negative Normal Negative [facility] Comment on above: Order Comment: Name Collection Type:: Clean-Voided Midstream Performed By: #### A DDONUAPLUS #### [address] Color (U) Light-Yellow Normal Yellow [facility] Comment on above: Order Comment: Name Collection Type:: Clean-Voided Midstream Performed By: #### A DDONUAPLUS #### [address] Glucose Ql (U) Normal Normal Normal [facility] Comment on above: Order Comment: Name Collection Type:: Clean-Voided Midstream Performed By: #### A DDONUAPLUS #### [place] [address] [place] Hyaline Casts,Urine 0-8 Normal 0-8 [facility] Comment on above: Order Comment: Name Collection Type:: Clean-Voided Midstream Performed By: #### A DDONUAPLUS #### [address] Ketones Ql (U) Negative Normal Negative [facility] Comment on above: Order Comment: Name Collection Type:: Clean-Voided Midstream Performed By: #### A DDONUAPLUS #### [address] Leukocyte esterase Test strip Ql (U) 3+ Normal Negative [facility] Comment on above: Order Comment: Name Collection Type:: Clean-Voided Midstream Performed By: #### A DDONUAPLUS #### [place] [address] [place] Mucus,Urine Rare Normal [facility] Comment on above: Order Comment: Name Collection Type:: Clean-Voided Midstream Result Comment: PERF ORMED BY: [place] [address] PATHOLOGIST KIER DRIER RAUL WETZEL M.D. Performed By: #### A DDONUAPLUS #### [place] [address] [place] Nitrite,Urine Negative Normal Negative [facility] Comment on above: Order Comment: Name Collection Type:: Clean-Voided Midstream Performed By: #### A DDONUAPLUS #### [address] Occult Blood,Urine Negative Normal Negative [facility] Comment on above: Order Comment: Name Collection Type:: Clean-Voided Midstream Result Comment: PERF ORMED BY: [place] [address] PATHOLOGIST KIER DRIER RAUL WETZEL M.D. Performed By: #### A DDONUAPLUS #### [address] pH (U) 5.0 [pH] Normal 5.0-9.0 [facility] Comment on above: Order Comment: Name Collection Type:: Clean-Voided Midstream Performed By: #### A DDONUAPLUS #### [address] Protein,Urine Negative Normal Negative [facility] Comment on above: Order Comment: Name Collection Type:: Clean-Voided Midstream Performed By: #### A DDONUAPLUS #### [place] [address] [place] RBC,Urine 1-2 Normal 0-4 [facility] Comment on above: Order Comment: Name Collection Type:: Clean-Voided Midstream Performed By: #### A DDONUAPLUS #### [place] [address] [place] Specificy [place],Urine 1.011 Normal 1.001-1.03 0 [facility] Comment on above: Order Comment: Name Collection Type:: Clean-Voided Midstream Performed By: #### A DDONUAPLUS #### [place] [address] [place] Squamous Epithelial Cell,Urine 3-4 Normal 0-2 [facility] Comment on above: Order Comment: Name Collection Type:: Clean-Voided Midstream Performed By: #### A DDONUAPLUS #### [address] Urobilinogen,Urine Normal Normal Normal [facility] Comment on above: Order Comment: Name Collection Type:: Clean-Voided Midstream Performed By: #### A DDONUAPLUS #### [address] WBC,Urine 5-9 Normal 0-4 [facility] Comment on above: Order Comment: Name Collection Type:: Clean-Voided Midstream Performed By: #### A DDONUAPLUS #### [address] Hemoglobin and Hematocriton 04-04-2025 Hematocrit (Bld) [Volume fraction] 25.8 % Low 34.0-46.4 [facility] Comment on above: Result Comment: PERF ORMED BY: [place] [address] PATHOLOGIST KIER DRIER RAUL WETZEL M.D. Performed By: #### B MP, CBC #### [address] Hemoglobin (Bld) [Mass/Vol] 8.3 g/dL Low 11.8-15.4 [facility] Comment on above: Performed By: #### B MP, CBC #### [address] Sodium, Urine (Random)on Sodium (U) [Moles/Vol] 27 mmol/L Normal Th e [facility] Comment on above: Result Comment: No r eference range established PERFORMED BY: [place] [address] PATHOLOGIST KIER DRIER RAUL WETZEL M.D. Performed By: #### A DDONUAPLUS #### [address] Urine Cultureon 04-04-2025 Bacteria identified Cx Nom (U) <9,000 colonies/ml mixed bacterial skin contaminants 2 Days PERFORMED BY: [place] [address] PATHOLOGIST KIER DRIER RAUL WETZEL M.D. Normal [facility] Comment on above: Performed By: #### A DDONUAPLUS #### [address] [address] [place] XR chest 1V portableon 04-04 XR chest 1V portable [facility] [place] [address] [place] [id number] XRay Report Signed Patient: Jessy Dow MR#: [id number] 76 : 1940 Acct:[id number] Age/Sex: 84 / F ADM Date: 04/01/25 Loc: Room: [address] [place] [address] Type: ADM IN Attending Dr: Annette Porras MD Copies to: MD Enoc Ott MD Ordering Provider: Enoc Tapia MD Date of Service: 04/04/25 XR/XR chest 1V portable: left effusions PORTABLE AP ERECT CHEST 0908 hours CLINICAL HISTORY: Follow-up left pleural effusion. Left rib fractures. COMPARISON: 04/03/[address] 04/01/2025 The visualized cardiac and mediastinal contours are similar. The right lung, as visualized is clear. There is continued pleural-parenchymal opacity at the left lung base where the hemidiaphragm is obscured. No developing pneumothorax is seen. There is left-sided calcified granuloma. The bony structures are osteopenic. Patient's lateral left rib fractures are better seen on the comparison CT study. XR/XR chest 1V portable IMPRESSION: CONTINUED LEFT BASILAR PLEURAL-PARENCHYMAL OPACITY. NO DEVELOPING PNEUMOTHORAX. Impression dictated by: Mary Gonzalez M.D. 04/04/2025 11:36 AM Dictation Location: [place] [address] Transcribed By: [facility] 04/04/25 1136 Dictated By: Mary Gonzalez MD 04/04/25 1132 Signed By: 04/04/25 1136 Normal [facility] Complete Blood Count Auto Di ffon 04-03-2025 Basophils (Bld) [#/Vol] 0.0 10*3/uL Normal 0.0-0.2 [facility] Comment on above: Result Comment: PERF ORMED BY: [place] [id number] PATHOLOGIST KIER DRIER RAUL WETZEL M.D. Performed By: #### B MP, CBC #### [place] [address] [place] Basophils/100 WBC (Bld) 0.1 % Normal . [facility] Comment on above: Performed By: #### B MP, CBC #### [place] [address] [place] Eosinophils (Bld) [#/Vol] 0.0 10*3/uL Normal 0.0-0.45 [facility] Comment on above: Performed By: #### B MP, CBC #### [place] [address] [place] Eosinophils/100 WBC (Bld) 0.4 % Normal . [facility] Comment on above: Performed By: #### B MP, CBC #### [address] Erythrocyte distribution width (RBC) [Ratio] 17.5 % High 11.9-15.3 [facility] Comment on above: Performed By: #### B MP, CBC #### [address] Hematocrit (Bld) [Volume fraction] 28.2 % Low 34.0-46.4 [facility] Comment on above: Performed By: #### B MP, CBC #### [address] Hemoglobin (Bld) [Mass/Vol] 9.1 g/dL Low 11.8-15.4 [facility] Comment on above: Performed By: #### B MP, CBC #### [place] [address] [place] Lymphocytes (Bld) [#/Vol] 0.6 10*3/uL Low 1.00-4.8 [facility] Comment on above: Performed By: #### B MP, CBC #### [place] [address] [place] Lymphocytes/100 WBC (Bld) 6.1 % Normal . [facility] Comment on above: Performed By: #### B MP, CBC #### [address] MCH (RBC) [Entitic mass] 24.0 pg Low 24.7-34.3 [facility] Comment on above: Performed By: #### B MP, CBC #### [address] MCV (RBC) [Entitic vol] 74.5 fL Low 80-100 [facility] Comment on above: Performed By: #### B MP, CBC #### [address] Mean Corpuscular HGB Conc 32.1 g/dL Normal 32.0-35.0 [facility] Comment on above: Performed By: #### B MP, CBC #### [address] [address] Monocytes (Bld) [#/Vol] 1.2 10*3/uL High 0.0-0.8 [facility] Comment on above: Performed By: #### B MP, CBC #### [address] Monocytes/100 WBC (Bld) 11.2 % Normal . [facility] Comment on above: Performed By: #### B MP, CBC #### [address] Neutrophils (Bld) [#/Vol] 8.6 10*3/uL High 1.8-7.7 [facility] Comment on above: Performed By: #### B MP, CBC #### [address] Neutrophils/100 WBC (Bld) 82.2 % Normal . [facility] Comment on above: Performed By: #### B MP, CBC #### [address] NRBC% 0.1 /100{WBC} Normal 0-0.5 [facility] Comment on above: Performed By: #### B MP, CBC #### [address] Platelet mean volume (Bld) [Entitic vol] 8.4 fL Normal 6.3-10.7 [facility] Comment on above: Performed By: #### B MP, CBC #### [address] Platelets (Bld) [#/Vol] 245 10*3/uL Normal 150-450 [facility] Comment on above: Performed By: #### B MP, CBC #### [address] RBC (Bld) [#/Vol] 3.79 10*6/uL Normal 3.60-5.00 [facility] Comment on above: Performed By: #### B MP, CBC #### [address] WBC (Bld) [#/Vol] 10.5 10*3/uL Normal 3.8-11.6 [facility] Comment on above: Performed By: #### B MP, CBC #### [address] White Blood Count 10.5 [CFU]/mL Normal 3.8-11.6 [facility] Comment on above: Performed By: #### B MP, CBC #### [address] XR chest 2V*on 04-03-2025 XR chest 2V* [facility] [place] [address] XRay Report Signed Patient: Jessy Dow MR#: [id number] 76 : 1940 Acct:[id number] Age/Sex: 84 / F ADM Date: 04/01/25 Loc: Room: 6I9194-7 Type: ADM IN Attending Dr: Annette Porras MD Copies to: Annette Porras MD Ordering Provider: Annette Porras MD Date of Service: 04/03/25 XR/XR chest 2V*: fall effusions Plain film chest 2 view HISTORY: Fell. Hemothorax COMPARISON: 04/02/2025 FINDINGS: SUPPORT DEVICES: None POSTSURGICAL CHANGES: None HEART: Within normal limits PULMONARY REE: Within normal limits MEDIASTINUM: Unremarkable LUNGS AND PLEURA: Continued moderate left basilar pleural-parenchymal change, similar. No developing pneumothorax. BONY STRUCTURES: Intact ADDITIONAL FINDINGS None XR/XR chest 2V* IMPRESSION: Similar moderate left basilar pleural-parenchymal changes. Impression dictated by: Burak Bravo M.D. 04/03/2025 10:05 AM Dictation Location: [facility]16 Transcribed By: [facility] 04/03/25 1005 Dictated By: Burak Bravo DO 04/03/25 1003 Signed By: 04/03/25 1005 Normal [facility] Basic Metabolic Panelon Anion gap [Moles/Vol] 9.5 mmol/L Normal 6.0-15.0 [facility] Comment on above: Performed By: #### B MP, CBC #### [address] Calcium [Mass/Vol] 8.7 mg/dL Normal 8.6-10.3 [facility] Comment on above: Performed By: #### B MP, CBC #### [facility] [address] Chloride [Moles/Vol] 104 mmol/L Normal 98-107 [facility] Comment on above: Performed By: #### B MP, CBC #### [facility] [address] CO2 [Moles/Vol] 26.4 mmol/L Normal 21.0-31.0 [facility] Comment on above: Performed By: #### B MP, CBC #### [facility] [address] [place] [address] [place] Creatinine [Mass/Vol] 1.06 mg/dL Normal 0.60-1.20 [facility] Comment on above: Performed By: #### B MP, CBC #### [facility] [address] [place] [address] [place] Creatinine Clr Calc Pharmacy 43.24 Normal [facility] Comment on above: Result Comment: PERF ORMED BY: [place] [address] PATHOLOGIST KIER DRIER RAUL WETZEL M.D. Performed By: #### B MP, CBC #### [place] [address] [place] GFR/1.73 sq M.predicted MDRD (S/P/Bld) [Vol rate/Area] 52.124 mL/min/{1.73_m2} Normal [facility] Comment on above: Performed By: #### B MP, CBC #### [address] Glucose [Mass/Vol] 114 mg/dL High 70-100 [facility] Comment on above: Result Comment: [place] Glucose Reference Range is dependent on time and content of last meal. Glucose of more than 200 mg/dL in a nonstressed, ambulatory subject supports the diagnosis of Diabetes Mellitus. ADA recommended reference range Performed By: #### B MP, CBC #### [address] Potassium [Moles/Vol] 4.9 mmol/L Normal 3.5-5.1 [facility] Comment on above: Performed By: #### B MP, CBC #### [place] [address] [place] Sodium [Moles/Vol] 135 mmol/L Low 136-145 [facility] Comment on above: Performed By: #### B MP, CBC #### [place] [address] [place] Urea nitrogen [Mass/Vol] 19 mg/dL Normal 7-25 [facility] Comment on above: Performed By: #### B MP, CBC #### [address] Complete Blood Count Auto Di ffon 04-02-2025 Basophils (Bld) [#/Vol] 0.0 10*3/uL Normal 0.0-0.2 [facility] Comment on above: Result Comment: PERF ORMED BY: [address] [place] [address] PATHOLOGIST KIER DRIER RAUL WETZEL M.D. Performed By: #### B MP, CBC #### [address] Basophils/100 WBC (Bld) 0.3 % Normal . [facility] Comment on above: Performed By: #### B MP, CBC #### [address] Eosinophils (Bld) [#/Vol] 0.1 10*3/uL Normal 0.0-0.45 [facility] Comment on above: Performed By: #### B MP, CBC #### [address] Eosinophils/100 WBC (Bld) 1.3 % Normal . [facility] Comment on above: Performed By: #### B MP, CBC #### [address] Erythrocyte distribution width (RBC) [Ratio] 17.1 % High 11.9-15.3 [facility] Comment on above: Performed By: #### B MP, CBC #### [address] Hematocrit (Bld) [Volume fraction] 28.8 % Low 34.0-46.4 [facility] Comment on above: Performed By: #### B MP, CBC #### [address] Hemoglobin (Bld) [Mass/Vol] 9.1 g/dL Low 11.8-15.4 [facility] Comment on above: Performed By: #### B MP, CBC #### [place] [address] [place] Lymphocytes (Bld) [#/Vol] 0.8 10*3/uL Low 1.00-4.8 [facility] Comment on above: Performed By: #### B MP, CBC #### [place] [address] [place] Lymphocytes/100 WBC (Bld) 13.4 % Normal . [facility] Comment on above: Performed By: #### B MP, CBC #### [address] MCH (RBC) [Entitic mass] 23.8 pg Low 24.7-34.3 [facility] Comment on above: Performed By: #### B MP, CBC #### [address] MCV (RBC) [Entitic vol] 75.1 fL Low 80-100 [facility] Comment on above: Performed By: #### B MP, CBC #### [address] Mean Corpuscular HGB Conc 31.7 g/dL Low 32.0-35.0 [facility] Comment on above: Performed By: #### B MP, CBC #### [address] Monocytes (Bld) [#/Vol] 0.6 10*3/uL Normal 0.0-0.8 [facility] Comment on above: Performed By: #### B MP, CBC #### [address] Monocytes/100 WBC (Bld) 10.9 % Normal . [facility] Comment on above: Performed By: #### B MP, CBC #### [address] Neutrophils (Bld) [#/Vol] 4.2 10*3/uL Normal 1.8-7.7 [facility] Comment on above: Performed By: #### B MP, CBC #### [address] Neutrophils/100 WBC (Bld) 74.1 % Normal . [facility] Comment on above: Performed By: #### B MP, CBC #### [address] NRBC% 0.1 /100{WBC} Normal 0-0.5 [facility] Comment on above: Performed By: #### B MP, CBC #### [address] Platelet mean volume (Bld) [Entitic vol] 8.4 fL Normal 6.3-10.7 [facility] Comment on above: Performed By: #### B MP, CBC #### [address] Platelets (Bld) [#/Vol] 242 10*3/uL Normal 150-450 [facility] Comment on above: Performed By: #### B MP, CBC #### [address] RBC (Bld) [#/Vol] 3.83 10*6/uL Normal 3.60-5.00 [facility] Comment on above: Performed By: #### B MP, CBC #### [address] WBC (Bld) [#/Vol] 5.7 10*3/uL Normal 3.8-11.6 [facility] Comment on above: Performed By: #### B MP, CBC #### [address] White Blood Count 5.7 [CFU]/mL Normal 3.8-11.6 [facility] Comment on above: Performed By: #### B MP, CBC #### [address] Prothrombin Time INRon 04-02 INR Coag (PPP) [Relative time] 1.3 {INR} Normal [facility] Comment on above: Result Comment: INR Therapeutic [...] with mechanical heart valves: 3 - 4.5 PERFORMED BY: [place] [address] PATHOLOGIST KIER DRIER RAUL WETZEL M.D. Performed By: #### P T #### [address] PT Coag (PPP) [Time] 15.0 s High 9.0-12.9 [facility] Comment on above: Result Comment: A he matocrit value greater than 55% may lead to inaccurate results in coagulation testing. Patients having hematocrit values >55% require a special collection tube for coagulation studies. Please contact the laboratory at [phone] for redraw instructions. Performed By: #### P T #### [address] XR chest 2V*on 04-02-2025 XR chest 2V* [facility] Main [place] [address] [place] [address] XRay Report Signed Patient: Jessy Dow MR#: [id number] [birth year] : 1940 Acct:[id number] Age/Sex: 84 / F ADM Date: 04/01/25 Loc: Room: [address] [place] [address] Type: ADM IN Attending Dr: Annette Porras MD Copies to: MD Annette Laird MD Ordering Provider: Aniceto Mota MD Date of Service: 04/02/25 XR/XR chest 2V*: evluate progression of hemothorax Plain film chest 2 view HISTORY: Follow-up hemothorax. The ninth and 10th left rib fractures COMPARISON: 04/01/2025 FINDINGS: SUPPORT DEVICES: None POSTSURGICAL CHANGES: None HEART: Within normal limits PULMONARY REE: Within normal limits MEDIASTINUM: Unremarkable LUNGS AND PLEURA: Similar mild to moderate left basilar pleural-parenchymal changes. No pneumothorax. BONY STRUCTURES: Fractures not well seen with plain film imaging. ADDITIONAL FINDINGS None XR/XR chest 2V* IMPRESSION: Stable chest Impression dictated by: Burak Bravo M.D. 04/02/2025 9:06 AM Dictation Location: [place] [address] Transcribed By: [facility] 04/02/25905 Dictated By: Burak Bravo DO 04/02/25904 Signed By: 04/02/25905 Normal [facility] Alanine aminotransferase [En zymatic activity/volume] in Serum or PlasmaOrdered By: Kodi Smith on 04-01-2025 ALT [Catalytic activity/Vol] 7 U/L Normal 7-52 [facility] Comment on above: Performed By: #### C MP, CBC #### [facility] [address] [place] [address] [place] Albumin [Mass/volume] in Ser um or Plasma by Bromocresol green (BCG) dye binding methoOrdered By: Kodi Smith on 04-01-2025 Albumin BCG dye [Mass/Vol] 3.7 g/dL 3.5-5.7 [facility] Alkaline phosphatase [Enzyma tic activity/volume] in Serum or PlasmaOrdered By: Kodi Smith on 04-01-2025 ALP [Catalytic activity/Vol] 96 U/L Normal 34-104 [facility] Comment on above: Performed By: #### C MP, CBC #### [address] Appearance of UrineOrdered B y: Kodi Smith on 04-01-2025 Appearance (U) Clear Normal Clear [facility] Comment on above: Order Comment: Name Collection Type:: Clean-Voided Midstream Performed By: #### B MP, CBC #### [place] [address] [place] Aspartate aminotransferase [ Enzymatic activity/volume] in Serum or PlasmaOrdered By: Kodi Smith on 04-01-2025 AST [Catalytic activity/Vol] 13 U/L Normal 13-39 [facility] Comment on above: Performed By: #### C MP, CBC #### [facility] [address] [place] [address] [place] Basophils [#/volume] in Bloo d by Automated countOrdered By: Kodi Smith on 04-01-2025 Basophils (Bld) [#/Vol] 0.1 10*3/uL Normal 0.0-0.2 [facility] Comment on above: Result Comment: PERF ORMED BY: [place] [address] PATHOLOGIST KIER DRIER RAUL WETZEL M.D. Performed By: #### C MP, CBC #### [address] Basophils/100 leukocytes in Blood by Automated countOrdered By: Kodi Smith on 04-01-2025 Basophils/100 WBC (Bld) 1.6 % Normal . [facility] Comment on above: Performed By: #### C MP, CBC #### [address] Bilirubin Test strip Ql (U)O rdered By: Kodi Smith on 04-01-2025 Bilirubin Ql (U) Negative Negative [facility] Bilirubin.total [Mass/volume ] in Serum or PlasmaOrdered By: Kodi Smith on 04-01-2025 Bilirubin [Mass/Vol] 0.4 mg/dL Normal 0.3-1.0 [facility] Comment on above: Performed By: #### C MP, CBC #### [address] abdomen pelvis w conon CT abdomen pelvis w con [facility] Main [place] [address] [place] [address] CT Scan Report Signed Patient: Jessy Dow MR#: [id number] [birth year] : 1940 Acct:[id number] Age/Sex: 84 / F ADM Date: 04/01/25 Loc: ER Room: Type: [facility] ER Attending Dr: Copies to: DO Kodi Drew Jr, MD Ordering Provider: Kodi Smith Jr, MD Date of Service: 04/01/25 CT/CT abdomen pelvis w con: fall, L rib and abd pain ([id number]) CT/CT chest w con: fall, L rib and abd pain CT Chest, Abdomen and Pelvis with contrast TECHNIQUE: Axial imaging with 2-D reconstruction. The CT exam was performed using one or more the following dose reduction techniques: Automated exposure control, adjustment of the MA and/or Kv according to patient size, or use of the iterative reconstruction technique. History: Fell down steps. Left flank pain. Pain with inspiration. Left flank bruising COMPARISON: None THYROID: No significant thyroid abnormality identified. AIRWAY: Central airway is patent. ESOPHAGUS: Esophagus normal course and caliber. HEART: Heart is not enlarged. PERICARDIAL EFFUSION: None CORONARY ARTERY CALCIFICATION: None MEDIASTINUM: Nonenlarged mediastinal lymph nodes identified. HILAR REGION: No hilar mass or adenopathy is seen. THORACIC AORTA: No thoracic aortic aneurysm or dissection. No atherosclerosis LUNG INTERSTITIUM: Left lung base consolidation may represent small contusion. PLEURAL EFFUSION Small left basilar pleural fluid may represent small hemothorax. PNEUMOTHORAX: No pneumothorax seen. LUNG NODULE: No lung nodules identified. CHEST WALL: Contusion of the left flank. The bony chest intact. LIVER: No hepatic mass or intrahepatic biliary ductal dilatation is identified. Normal density of the liver parenchyma identified. GALLBLADDER: Cholecystectomy BILE DUCTS: No biliary duct dilatation identified. SPLEEN: Splenic calcifications. PANCREAS: Unremarkable ADRENAL GLANDS: The adrenal glands are unremarkable. KIDNEYS: Unremarkable ABDOMINAL AORTA: The abdominal aorta is normal. RETROPERITONEUM: No significant retroperitoneal abnormalities identified. STOMACH:Nondistended SMALL BOWEL: The small bowel loops are nondistended. APPENDIX: Appendectomy COLON: There is no colitis or diverticulitis. Diverticulosis. URINARY BLADDER: Urinary bladder is unremarkable. REPRODUCTIVE STRUCTURES: Hysterectomy FREE AIR: None FREE FLUID: None ABDOMINAL WALL: No subcutaneous soft tissue abnormality identified. INGUINAL HERNIA: None BONES:Fractures left posterior ninth and 10th ribs. CT/CT chest w con IMPRESSION: Fractures of the posterior left ninth and 10th ribs with small adjacent contusion and trace hemothorax. No pneumothorax. No acute traumatic findings of the abdomen or pelvis. PRELIMINARY RESULTS: None given Impression dictated by: Burak Bravo M.D. 04/01/2025 7:59 AM Dictation Location: [place] [address] Transcribed By: [facility] 04/01/25 0759 Dictated By: Burak Bravo DO 04/01/25 0752 Signed By: 04/01/25 0759 Normal [facility] Calcium [Mass/volume] in Ser um or PlasmaOrdered By: Kodi Smith on 04-01-2025 Calcium [Mass/Vol] 8.6 mg/dL Normal 8.6-10.3 [facility] Comment on above: Performed By: #### C MP, CBC #### [facility] [address] [place] [address] Carbon dioxide, total [Moles /volume] in Serum or PlasmaOrdered By: Kodi Smith on 04-01-2025 CO2 [Moles/Vol] 24.0 mmol/L Normal 21.0-31.0 [facility] Comment on above: Performed By: #### C MP, CBC #### [address] Chloride [Moles/volume] in S marylou or PlasmaOrdered By: Kodi Smith on 04-01-2025 Chloride [Moles/Vol] 106 mmol/L Normal 98-107 [facility] Comment on above: Performed By: #### C MP, CBC #### [address] Color of Urine by AutoOrdere d By: Kodi Smith on 04-01-2025 Color (U) Light-yellow Normal Yellow [facility] Comment on above: Order Comment: Name Collection Type:: Clean-Voided Midstream Performed By: #### B MP, CBC #### [address] Complete Blood Count Auto Di ffon 04-01-2025 Mean Corpuscular HGB Conc 31.6 g/dL Low 32.0-35.0 [facility] Comment on above: Performed By: #### C MP, CBC #### [address] Monocytes/100 WBC (Bld) 16.10 % Normal 0.00-20.00 [facility] Comment on above: Performed By: #### C MP, CBC #### [address] NRBC% 0.0 /100{WBC} Normal 0-0.5 [facility] Comment on above: Performed By: #### C MP, CBC #### [address] White Blood Count 8.0 [CFU]/mL Normal 3.8-11.6 [facility] Comment on above: Performed By: #### C MP, CBC #### [address] Comprehensive Metabolic Pane barbara 04-01-2025 Albumin [Mass/Vol] 3.7 g/dL Normal 3.5-5.7 [facility] Comment on above: Performed By: #### C MP, CBC #### [address] Creatinine Clr Calc Pharmacy 42.83 Normal [facility] Comment on above: Result Comment: PERF ORMED BY: [place] [address] PATHOLOGIST KIER DRIER RAUL WETZEL M.D. Performed By: #### C MP, CBC #### [address] GFR/1.73 sq M.predicted MDRD (S/P/Bld) [Vol rate/Area] 53.329 mL/min/{1.73_m2} Normal [facility] Comment on above: Performed By: #### C MP, CBC #### [address] Creatinine [Mass/volume] in Serum or PlasmaOrdered By: Kodi Smith on 04-01-2025 Creatinine [Mass/Vol] 1.04 mg/dL Normal 0.60-1.20 [facility] Comment on above: Performed By: #### C MP, CBC #### [address] ECG 12 lead ECGon 04-01-2025 ECG 12 lead ECG [facility] [place] [address] Electrocardiograph Report Signed Patient: Jessy Dow MR#: [id number] [birth year] : 1940 Acct:[id number] Age/Sex: 84 / F ADM Date: 04/01/25 Loc: 4N Room: [id number] Type: ADM IN Attending Dr: Annette Porras MD Ordering Provider: Kodi Smith Jr, MD Date of Service: 04/01/2502/19/201 ECG/ECG 12 lead ECG: Fall Copies to: Test Reason : Blood Pressure : 191/81 mmHG Vent. Rate : 58 BPM Atrial Rate : 58 BPM P-R Int : 134 ms QRS Dur : 140 ms QT Int : 470 ms P-R-T Axes : 85 15 73 degrees QTcB Int : 461 ms Sinus bradycardia Right bundle branch block Abnormal ECG When compared with ECG of 01-Sep-2023 09:32, premature atrial complexes are no longer present Confirmed by SHAHIDA HOUSTON FAC, CHARMAINE ([id number]) on 04/02/2025 9:47:13 AM Referred By: Electronically Signed By: CHARMAINE PINEDO MD [facility] Transcribed By: [facility] Signed By Charmaine Pinedo MD, [facility] 04/02/25 0947 Normal [facility] Eosinophils [#/volume] in Bl ood by Automated countOrdered By: Kodi Smith on 04-01-2025 Eosinophils (Bld) [#/Vol] 0.1 10*3/uL Normal 0.0-0.45 [facility] Comment on above: Performed By: #### C MP, CBC #### [address] Eosinophils/100 leukocytes i n Blood by Automated countOrdered By: Kodi Smith on 04-01-2025 Eosinophils/100 WBC (Bld) 0.6 % Normal . [facility] Comment on above: Performed By: #### C MP, CBC #### [address] Erythrocyte distribution wid th [Ratio] by Automated countOrdered By: Kodi Smith on 04-01-2025 Erythrocyte distribution width (RBC) [Ratio] 17.1 % High 11.9-15.3 [facility] Comment on above: Performed By: #### C MP, CBC #### [address] Erythrocytes [#/volume] in B lood by Automated countOrdered By: oKdi Smith on 04-01-2025 RBC (Bld) [#/Vol] 3.87 10*6/uL Normal 3.60-5.00 [facility] Comment on above: Performed By: #### C MP, CBC #### [address] [place] [address] [place] Glucose [Mass/volume] in Ser um or PlasmaOrdered By: Kodi Smith on 04-01-2025 Glucose [Mass/Vol] 184 mg/dL High 70-100 [facility] Comment on above: ADA recommended refe rence rangeRandom Glucose Reference Range is dependent on time and content of last meal. Glucose of more than 200 mg/dL in a nonstressed, ambulatory subject supports the diagnosis of Diabetes Mellitus. Result Comment: [place] om Glucose Reference Range is dependent on time and content of last meal. Glucose of more than 200 mg/dL in a nonstressed, ambulatory subject supports the diagnosis of Diabetes Mellitus. ADA recommended reference range Performed By: #### C MP, CBC #### [address] Glucose [Mass/volume] in Uri ne by Test stripOrdered By: Kodi Smith on 04-01-2025 Glucose Test strip (U) [Mass/Vol] Normal mg/dL Normal [facility] Hematocrit [Volume Fraction] of Blood by Automated countOrdered By: Kodi Smith on 04-01-2025 Hematocrit (Bld) [Volume fraction] 29.1 % Low 34.0-46.4 [facility] Comment on above: Performed By: #### C MP, CBC #### [address] Hemoglobin Test strip Ql (U) Ordered By: Kodi Smith on 04-01-2025 Hemoglobin Ql (U) Negative Negative [facility] Hemoglobin [Mass/volume] in BloodOrdered By: Kodi Smith on 04-01-2025 Hemoglobin (Bld) [Mass/Vol] 9.2 g/dL Low 11.8-15.4 [facility] Comment on above: Performed By: #### C MP, CBC #### [place] [address] [place] Ketones [Presence] in Urine by Test stripOrdered By: Kodi Smith on 04-01-2025 Ketones Ql (U) Negative Normal Negative [facility] Comment on above: Order Comment: Name Collection Type:: Clean-Voided Midstream Performed By: #### B MP, CBC #### [address] Leukocyte esterase [Presence ] in Urine by Test stripOrdered By: Kodi Smith on 04-01-2025 Leukocyte esterase Test strip Ql (U) Negative Normal Negative [facility] Comment on above: Order Comment: Name Collection Type:: Clean-Voided Midstream Performed By: #### B MP, CBC #### [address] Leukocytes [#/volume] correc qi for nucleated erythrocytes in Blood by Automated counOrdered By: Kodi Smith on 04-01-2025 WBC corrected for nucl RBC Auto (Bld) [#/Vol] 8.0 10*3/uL 3.8-11.6 [facility] Leukocytes [#/volume] in Blo od by Automated countOrdered By: Kodi Smith on 04-01-2025 WBC (Bld) [#/Vol] 8.0 10*3/uL Normal 3.8-11.6 [facility] Comment on above: Performed By: #### C MP, CBC #### [address] Lymphocytes [#/volume] in Bl ood by Automated countOrdered By: Kodi Smith on 04-01-2025 Lymphocytes (Bld) [#/Vol] 1.0 10*3/uL Normal 1.00-4.8 [facility] Comment on above: Performed By: #### C MP, CBC #### [place] [address] [place] Lymphocytes/100 leukocytes i n Blood by Automated countOrdered By: Kodi Smith on 04-01-2025 Lymphocytes/100 WBC (Bld) 12.1 % Normal . [facility] Comment on above: Performed By: #### C MP, CBC #### [place] [address] [place] MCH [Entitic mass] by Automa qi countOrdered By: Kodi Smith on 04-01-2025 MCH (RBC) [Entitic mass] 23.7 pg Low 24.7-34.3 [facility] Comment on above: Performed By: #### C MP, CBC #### [facility] [address] [place] [address] MCHC Auto (RBC) [Mass/Vol]Or dered By: Kodi Smith on 04-01-2025 MCHC (RBC) [Mass/Vol] 31.6 g/dL Low 32.0-35.0 [facility] MCV [Entitic volume] by Auto mated countOrdered By: Kodi Smith on 04-01-2025 MCV (RBC) [Entitic vol] 75.0 fL Low 80-100 [facility] Comment on above: Performed By: #### C MP, CBC #### [address] Monocyte distribution width [Entitic volume] in Blood by AutomatedOrdered By: Kodi Smith on 04-01-2025 Monocyte distribution width Auto (Bld) [Entitic vol] 16.10 % 0.00-20.00 [facility] Monocytes [#/volume] in Bloo d by Automated countOrdered By: Kodi Smith on 04-01-2025 Monocytes (Bld) [#/Vol] 0.5 10*3/uL Normal 0.0-0.8 [facility] Comment on above: Performed By: #### C MP, CBC #### [address] Monocytes/100 leukocytes in Blood by Automated countOrdered By: Koid Smith on 04-01-2025 Monocytes/100 WBC (Bld) 5.9 % Normal . [facility] Comment on above: Performed By: #### C MP, CBC #### [place] [address] [place] Neutrophils [#/volume] in Bl ood by Automated countOrdered By: Kodi Smith on 04-01-2025 Neutrophils (Bld) [#/Vol] 6.4 10*3/uL Normal 1.8-7.7 [facility] Comment on above: Performed By: #### C MP, CBC #### [place] [address] [place] Neutrophils/100 leukocytes i n Blood by Automated countOrdered By: Kodi Smith on 04-01-2025 Neutrophils/100 WBC (Bld) 79.8 % Normal . [facility] Comment on above: Performed By: #### C MP, CBC #### [facility] [address] Nitrite Test strip Ql (U)Ord ered By: Kodi Smith on 04-01-2025 Nitrite Ql (U) Negative Negative [facility] No Panel InformationOrdered By: Kodi Smith on 04-01-2025 Estimated GFR (CKD-EPI) 53.329 mL/Min [facility] Creatinine Clearance (Chem 42.83 [facility] Nucleated erythrocytes [Pres ence] in Blood by Automated countOrdered By: Kodi Smith on 04-01-2025 Nucleated RBC Auto Ql (Bld) 0.0 /100{WBC} 0-0.5 [facility] Platelet mean volume [Entiti c volume] in Blood by Automated countOrdered By: Kodi Smith on 04-01-2025 Platelet mean volume (Bld) [Entitic vol] 8.3 fL Normal 6.3-10.7 [facility] Comment on above: Performed By: #### C MP, CBC #### [place] [address] [place] Platelets [#/volume] in Bloo d by Automated countOrdered By: Kodi Smith on 04-01-2025 Platelets (Bld) [#/Vol] 252 10*3/uL Normal 150-450 [facility] Comment on above: Performed By: #### C MP, CBC #### [place] [address] [place] Potassium [Moles/volume] in Serum or PlasmaOrdered By: Kodi Smith on 04-01-2025 Potassium [Moles/Vol] 4.4 mmol/L Normal 3.5-5.1 [facility] Comment on above: Performed By: #### C MP, CBC #### [place] [address] [place] Protein Test strip (U) [Mass /Vol]Ordered By: Kodi Smith on 04-01-2025 Protein (U) [Mass/Vol] Negative Negative [facility] Protein [Mass/volume] in Ser um or PlasmaOrdered By: Kodi Smith on 04-01-2025 Protein [Mass/Vol] 6.4 g/dL Normal 6.4-8.9 [facility] Comment on above: Performed By: #### C MP, CBC #### [address] Serum globulin measurement b y calculation (mass/volume)Ordered By: Kodi Smith on 04-01-2025 Globulin (S) [Mass/Vol] 2.7 g/dL [facility] Comment on above: Performed By: #### C MP, CBC #### [address] Serum or plasma albumin/glob ulin mass ratioOrdered By: Kodi Smith on 04-01-2025 Albumin/Globulin [Mass ratio] 1.4 {ratio} [facility] Comment on above: Performed By: #### C MP, CBC #### [address] Serum or plasma anion gap de terminationOrdered By: Kodi Smith on 04-01-2025 Anion gap [Moles/Vol] 10.4 mmol/L Normal 6.0-15.0 [facility] Comment on above: Performed By: #### C MP, CBC #### [address] Sodium [Moles/volume] in Ser um or PlasmaOrdered By: Kodi Smith on 04-01-2025 Sodium [Moles/Vol] 136 mmol/L Normal 136-145 [facility] Comment on above: Performed By: #### C MP, CBC #### [address] Specific gravity Test strip (U) [Rel density]Ordered By: Kodi Smith on 04-01-2025 Specific gravity (U) [Rel density] >1.050 High 1.001-1.03 0 [facility] Urea nitrogen [Mass/volume] in Serum or PlasmaOrdered By: Kodi Smith on 04-01-2025 Urea nitrogen [Mass/Vol] 19 mg/dL Normal 7-25 [facility] Comment on above: Performed By: #### C MP, CBC #### [address] Urinalysison 04-01-2025 Bilirubin,Urine Negative Normal Negative [facility] Comment on above: Order Comment: Name Collection Type:: Clean-Voided Midstream Performed By: #### B MP, CBC #### [address] Glucose Ql (U) Normal Normal Normal [facility] Comment on above: Order Comment: Name Collection Type:: Clean-Voided Midstream Performed By: #### B MP, CBC #### [place] [address] [place] Nitrite,Urine Negative Normal Negative [facility] Comment on above: Order Comment: Name Collection Type:: Clean-Voided Midstream Performed By: #### B MP, CBC #### [address] Occult Blood,Urine Negative Normal Negative [facility] Comment on above: Order Comment: Name Collection Type:: Clean-Voided Midstream Result Comment: PERF ORMED BY: [place] [address] PATHOLOGIST KIER DRIER RAUL WETZEL M.D. Performed By: #### B MP, CBC #### [address] Protein,Urine Negative Normal Negative [facility] Comment on above: Order Comment: Name Collection Type:: Clean-Voided Midstream Performed By: #### B MP, CBC #### [place] [address] [place] Specificy [place],Urine >1.050 High 1.001-1.03 0 [facility] Comment on above: Order Comment: Name Collection Type:: Clean-Voided Midstream Performed By: #### B MP, CBC #### [address] Urobilinogen,Urine Normal Normal Normal [facility] Comment on above: Order Comment: Name Collection Type:: Clean-Voided Midstream Performed By: #### B MP, CBC #### [address] Urobilinogen Test strip (U) [Mass/Vol]Ordered By: Kodi Smith on 04-01-2025 Urobilinogen (U) [Mass/Vol] Normal mg/dL Normal [facility] X-ray reportOrdered By: Jacoby Bravo on 04-01-2025 Study report [facility] [place] [address] XRay Report Signed Patient: Jessy Dow MR#: [id number] : 1940 Acct:[id number] Age/Sex: 84 / F ADM Date: Loc: ER Room: Type: [facility] ER Attending Dr: Copies to: DO Kodi Drew Jr, MD~ Ordering Provider: Kodi Smith Jr, MD Date of Service: 04/01/25 XR/XR chest 1V portable: fall, L rib pain Plain film chest Single view HISTORY: Fell. Left flank pain. Left rib fractures seen with CT of the chest. COMPARISON: 09/01/2023 FINDINGS: SUPPORT DEVICES: None POSTSURGICAL CHANGES: None HEART: Within normal limits PULMONARY REE: Within normal limits MEDIASTINUM: Unremarkable LUNGS AND PLEURA: Mild left basilar pleural-parenchymal changes. BONY STRUCTURES: Left rib fractures not seen with plain film imaging. No acutedisplaced fracture. ADDITIONAL FINDINGS None XR/XR chest 1V portable IMPRESSION: Mild left basilar pleural-parenchymal changes. No pneumothorax. Impression dictated by: Burak Bravo M.D. 04/01/2025 8:11 AM Dictation Location: [facility]--20 Transcribed By: [facility] 04/01/25810 Dictated By: Burak Bravo DO 04/01/25 08 Signed By: 04/01/25 08 [facility] XR chest 1V portableon 04-01 XR chest 1V portable [facility] [place] [address] XRay Report Signed Patient: Jessy Dow MR#: [id number] : 1940 Acct:[id number] Age/Sex: 84 / F ADM Date: 04/01/25 Loc: ER Room: Type: [facility] ER Attending Dr: Copies to: DO Kodi Drew Jr, MD Ordering Provider: oKdi Smith Jr, MD Date of Service: 04/01/25 XR/XR chest 1V portable: fall, L rib pain Plain film chest Single view HISTORY: Fell. Left flank pain. Left rib fractures seen with CT of the chest. COMPARISON: 09/01/2023 FINDINGS: SUPPORT DEVICES: None POSTSURGICAL CHANGES: None HEART: Within normal limits PULMONARY REE: Within normal limits MEDIASTINUM: Unremarkable LUNGS AND PLEURA: Mild left basilar pleural-parenchymal changes. BONY STRUCTURES: Left rib fractures not seen with plain film imaging. No acute displaced fracture. ADDITIONAL FINDINGS None XR/XR chest 1V portable IMPRESSION: Mild left basilar pleural-parenchymal changes. No pneumothorax. Impression dictated by: Burak Bravo M.D. 04/01/2025 8:11 AM Dictation Location: [facility]-20 Transcribed By: [facility] 04/01/25 0811 Dictated By: Burak Bravo DO 04/01/25 0809 Signed By: 04/01/25 0811 Normal [facility] pH of Urine by Test stripOrd ered By: Kodi Smith on 04-01-2025 pH (U) 5.0 [pH] Normal 5.0-9.0 [facility] Comment on above: Order Comment: Name Collection Type:: Clean-Voided Midstream Performed By: #### B MP, CBC #### [address] ECG 12 Leadon 11-25-2024 ECG revealed normal sinus rhythm, left axis deviation, right bundle branch block, diffuse repolarization abnormalities, abnormal ECG [facility] Work Phone: XR Hip - left 3 [facility] Imaging Result: Left Hip AP and Lateral No acute fracture or dislocation Mild osteopenic appearance Symmetric minimal joint space narrowing at femoral head/ acetabular joint No visible stress fracture or periosteal reaction. Mild small enthesophyte at greater trochanter. Impression: no acute bony process left hip. [facility] US.doppler Lower extremity v ein - lefton 09-26-2024 TITLE OF EXAM: VAS US LOWER EXTREMITY [...] Bryant MD - 09/26/2024 TITLE OF EXAM: [facility] US LOWER EXTREMITY VENOUS DUPLEX LEFT [...] signed in approved by the interpreting radiologist. [facility] Radiology Study observation (narrative) [facility] US.doppler Lower extremity v ein - leftOrdered By: Austin Dunbar on 09-26-2024 [facility] Work Phone: VAS US LOWER EXTREMITY VENO US DUPLEX LEFTon 09-26-2024 VAS US LOWER EXTREMITY VENOUS DUPLEX LEFT TITLE OF EXAM: [facility] US LOWER EXTREMITY VENOUS DUPLEX LEFT [...] 3 [facility] 12-3 Radiology Study observation (narrative) [facility] ECG 12 Leadon 04-13-2024 ECG revealed normal sinus rhythm with right bundle branch block [facility] Work Phone: ECG 12 Leadon 09-18-2023 ECG revealed normal sinus rhythm with right bundle branch block [facility] Work Phone: Activated partial thrombopla stin time (aPTT) in platelet poor plasma by coagulation aOrdered By: Mike Brian on 09-01-2023 aPTT Coag (PPP) [Time] 38.3 s 25.1-36.5 [facility] Comment on above: A hematocrit value g reater than 55% may lead to inaccurate results in coagulation testing. Patients having hematocrit values >55% require a special collection tube for coagulation studies. Please contact the laboratory at [phone] for redraw instructions. Basophils Auto (Bld) [#/Vol] Ordered By: PROVIDER TEMP on 09-01-2023 Basophils (Bld) [#/Vol] 0.1 10*3/uL 0.0-0.2 [facility] Basophils/100 WBC Auto (Bld) Ordered By: PROVIDER TEMP on 09-01-2023 Basophils/100 WBC (Bld) 0.8 % . [facility] Calcium [Mass/volume] in Ser um or PlasmaOrdered By: Mike Brian on 09-01-2023 Calcium [Mass/Vol] 9.1 mg/dL 8.6-10.3 [facility] Carbon dioxide, total [Moles /volume] in Serum or PlasmaOrdered By: Mike Brian on 09-01-2023 CO2 [Moles/Vol] 24.0 mmol/L 21.0-31.0 [facility] Chloride [Moles/volume] in S marylou or PlasmaOrdered By: Mike Brian on 09-01-2023 Chloride [Moles/Vol] 107 mmol/L 98-107 [facility] Creatine kinase [Enzymatic a ctivity/volume] in Serum or PlasmaOrdered By: Mike Brian on 09-01-2023 CK [Catalytic activity/Vol] 80 U/L 30-223 [facility] Creatinine [Mass/volume] in Serum or PlasmaOrdered By: Mike Brian on 09-01-2023 Creatinine [Mass/Vol] 0.93 mg/dL 0.60-1.20 [facility] Eosinophils Auto (Bld) [#/Vo l]Ordered By: PROVIDER TEMP on 09-01-2023 Eosinophils (Bld) [#/Vol] 0.0 10*3/uL 0.0-0.45 [facility] Eosinophils/100 WBC Auto (Bl d)Ordered By: PROVIDER TEMP on 09-01-2023 Eosinophils/100 WBC (Bld) 0.4 % . [facility] Erythrocyte distribution wid th Auto (RBC) [Ratio]Ordered By: PROVIDER TEMP on 09-01-2023 Erythrocyte distribution width (RBC) [Ratio] 18.0 % 11.9-15.3 [facility] Glucose [Mass/volume] in Ser um or PlasmaOrdered By: Mike Brian on 09-01-2023 Glucose [Mass/Vol] 146 mg/dL 70-100 [facility] Comment on above: ADA recommended refe rence rangeRandom Glucose Reference Range is dependent on time and content of last meal. Glucose of more than 200 mg/dL in a nonstressed, ambulatory subject supports the diagnosis of Diabetes Mellitus. Hematocrit Auto (Bld) [Volum e fraction]Ordered By: PROVIDER TEMP on 09-01-2023 Hematocrit (Bld) [Volume fraction] 32.5 % 34.0-46.4 [facility] Hemoglobin [Mass/volume] in BloodOrdered By: PROVIDER TEMP on 09-01-2023 Hemoglobin (Bld) [Mass/Vol] 10.3 g/dL 11.8-15.4 [facility] INR in Platelet poor plasma by Coagulation assayOrdered By: Mike Brian on 09-01-2023 INR Coag (PPP) [Relative time] 1.6 {INR} [facility] Comment on above: INR Therapeutic Rang e [...] RBC Auto (Bld) [#/Vol] 9.4 10*3/uL 3.8-11.6 [facility] Lymphocytes Auto (Bld) [#/Vo l]Ordered By: PROVIDER TEMP on 09-01-2023 Lymphocytes (Bld) [#/Vol] 0.6 10*3/uL 1.00-4.8 [facility] Lymphocytes/100 WBC Auto (Bl d)Ordered By: PROVIDER TEMP on 09-01-2023 Lymphocytes/100 WBC (Bld) 6.4 % . [facility] MCH Auto (RBC) [Entitic mass ]Ordered By: PROVIDER TEMP on 09-01-2023 MCH (RBC) [Entitic mass] 23.7 pg 24.7-34.3 [facility] MCHC Auto (RBC) [Mass/Vol]Or dered By: PROVIDER TEMP on 09-01-2023 MCHC (RBC) [Mass/Vol] 31.8 g/dL 32.0-35.0 [facility] MCV Auto (RBC) [Entitic vol] Ordered By: PROVIDER TEMP on 09-01-2023 MCV (RBC) [Entitic vol] 74.6 fL 80-100 [facility] Monocyte distribution width [Entitic volume] in Blood by AutomatedOrdered By: PROVIDER TEMP on 09-01-2023 Monocyte distribution width Auto (Bld) [Entitic vol] 17.29 % 0.00-20.00 [facility] Monocytes Auto (Bld) [#/Vol] Ordered By: PROVIDER TEMP on 09-01-2023 Monocytes (Bld) [#/Vol] 0.6 10*3/uL 0.0-0.8 [facility] Monocytes/100 WBC Auto (Bld) Ordered By: PROVIDER TEMP on 09-01-2023 Monocytes/100 WBC (Bld) 6.0 % . [facility] Natriuretic peptide B [Mass/ Vol]Ordered By: Mike Brian on 09-01-2023 Natriuretic peptide B (Bld) [Mass/Vol] 126.0 pg/mL 5-100 [facility] Neutrophils Auto (Bld) [#/Vo l]Ordered By: PROVIDER TEMP on 09-01-2023 Neutrophils (Bld) [#/Vol] 8.1 10*3/uL 1.8-7.7 [facility] Neutrophils/100 WBC Auto (Bl d)Ordered By: PROVIDER TEMP on 09-01-2023 Neutrophils/100 WBC (Bld) 86.4 % . [facility] No Panel InformationOrdered By: Mike Brian on 09-01-2023 Estimated GFR (CKD-EPI) > 60.0 mL/Min [facility] Creatinine Clearance (Chem 50.24 [facility] Nucleated erythrocytes [Pres ence] in Blood by Automated countOrdered By: PROVIDER TEMP on 09-01-2023 Nucleated RBC Auto Ql (Bld) 0.1 /100{WBC} 0-0.5 [facility] Platelet mean volume Auto (B ld) [Entitic vol]Ordered By: PROVIDER TEMP on 09-01-2023 Platelet mean volume (Bld) [Entitic vol] 8.1 fL 6.3-10.7 [facility] Platelets Auto (Bld) [#/Vol] Ordered By: PROVIDER TEMP on 09-01-2023 Platelets (Bld) [#/Vol] 317 10*3/uL 150-450 [facility] Potassium [Moles/volume] in Serum or PlasmaOrdered By: Mike Brian on 09-01-2023 Potassium [Moles/Vol] 4.0 mmol/L 3.5-5.1 [facility] Prothrombin time (PT)Ordered By: Mike Brian on 09-01-2023 PT Coag (PPP) [Time] 18.4 s 9.0-12.9 [facility] Comment on above: A hematocrit value g reater than 55% may lead to inaccurate results in coagulation testing. Patients having hematocrit values >55% require a special collection tube for coagulation studies. Please contact the laboratory at [phone] for redraw instructions. RBC Auto (Bld) [#/Vol]Ordere d By: PROVIDER TEMDianna on 09-01-2023 RBC (Bld) [#/Vol] 4.36 10*6/uL 3.60-5.00 [facility] Serum or plasma anion gap de terminationOrdered By: Mike Brian on 09-01-2023 Anion gap [Moles/Vol] 11.0 mmol/L 6.0-15.0 [facility] Sodium [Moles/volume] in Ser um or PlasmaOrdered By: Mike Brian on 09-01-2023 Sodium [Moles/Vol] 138 mmol/L 136-145 [facility] Troponin I.cardiac [Mass/vol ume] in Serum or Plasma by Detection limit <= 0.01 ng/Ordered By: Mike Brian on 09-01-2023 Troponin I.cardiac DL <= 0.01 ng/mL [Mass/Vol] 5.2 pg/mL 0.0-15.0 [facility] Urea nitrogen [Mass/volume] in Serum or PlasmaOrdered By: Mike Brian on 09-01-2023 Urea nitrogen [Mass/Vol] 17 mg/dL 7-25 [facility] WBC Auto (Bld) [#/Vol]Ordere d By: PROVIDER TEMP on 09-01-2023 WBC (Bld) [#/Vol] 9.4 10*3/uL 3.8-11.6 [facility] Activated partial thrombopla stin time (aPTT) in platelet poor plasma by coagulation aOrdered By: Mike Brian on 07-27-2023 aPTT Coag (PPP) [Time] 35.2 s 25.1-36.5 [facility] Comment on above: A hematocrit value g reater than 55% may lead to inaccurate results in coagulation testing. Patients having hematocrit values >55% require a special collection tube for coagulation studies. Please contact the laboratory at [phone] for redraw instructions. Alanine aminotransferase [En zymatic activity/volume] in Serum or PlasmaOrdered By: Mike Brian on 07-27-2023 ALT [Catalytic activity/Vol] 11 U/L 7-52 [facility] Albumin [Mass/volume] in Ser um or Plasma by Bromocresol green (BCG) dye binding methoOrdered By: Mike Brian on 07-27-2023 Albumin BCG dye [Mass/Vol] 3.7 g/dL 3.5-5.7 [facility] Alkaline phosphatase [Enzyma tic activity/volume] in Serum or PlasmaOrdered By: Mike Brian on 07-27-2023 ALP [Catalytic activity/Vol] 94 U/L 34-104 [facility] Aspartate aminotransferase [ Enzymatic activity/volume] in Serum or PlasmaOrdered By: Mike Brian on 07-27-2023 AST [Catalytic activity/Vol] 15 U/L 13-39 [facility] Basophils Auto (Bld) [#/Vol] Ordered By: Mike Brian on 07-27-2023 Basophils (Bld) [#/Vol] 0.1 10*3/uL 0.0-0.2 [facility] Basophils/100 WBC Auto (Bld) Ordered By: Mike Brian on 07-27-2023 Basophils/100 WBC (Bld) 0.8 % . [facility] Bilirubin Test strip Ql (U)O rdered By: Mike Brian on 07-27-2023 Bilirubin Ql (U) Negative Negative [facility] Bilirubin.total [Mass/volume ] in Serum or PlasmaOrdered By: Mike Brian on 07-27-2023 Bilirubin [Mass/Vol] 0.4 mg/dL 0.3-1.0 [facility] Calcium [Mass/volume] in Ser um or PlasmaOrdered By: Mike Brian on 07-27-2023 Calcium [Mass/Vol] 8.9 mg/dL 8.6-10.3 [facility] Carbon dioxide, total [Moles /volume] in Serum or PlasmaOrdered By: Mike Brina on 07-27-2023 CO2 [Moles/Vol] 23.7 mmol/L 21.0-31.0 [facility] Chloride [Moles/volume] in S marylou or PlasmaOrdered By: Mike Brian on 07-27-2023 Chloride [Moles/Vol] 106 mmol/L 98-107 [facility] Color Auto (U)Ordered By: Honorio Brian on 07-27-2023 Color (U) Yellow Yellow [facility] Creatine kinase [Enzymatic a ctivity/volume] in Serum or PlasmaOrdered By: Mike Brian on 07-27-2023 CK [Catalytic activity/Vol] 45 U/L 30-223 [facility] Creatinine [Mass/volume] in Serum or PlasmaOrdered By: Mike Brian on 07-27-2023 Creatinine [Mass/Vol] 0.91 mg/dL 0.60-1.20 [facility] Eosinophils Auto (Bld) [#/Vo l]Ordered By: Mike Brian on 07-27-2023 Eosinophils (Bld) [#/Vol] 0.0 10*3/uL 0.0-0.45 [facility] Eosinophils/100 WBC Auto (Bl d)Ordered By: Mike Brian on 07-27-2023 Eosinophils/100 WBC (Bld) 0.5 % . [facility] Erythrocyte distribution wid th Auto (RBC) [Ratio]Ordered By: Mike Brian on 07-27-2023 Erythrocyte distribution width (RBC) [Ratio] 18.4 % 11.9-15.3 [facility] Globulin Calc (S) [Mass/Vol] Ordered By: Mike Brian on 07-27-2023 Globulin (S) [Mass/Vol] 3.4 g/dL [facility] Glucose [Mass/volume] in Ser um or PlasmaOrdered By: Mike Brian on 07-27-2023 Glucose [Mass/Vol] 119 mg/dL 70-100 [facility] Comment on above: ADA recommended refe rence rangeRandom Glucose Reference Range is dependent on time and content of last meal. Glucose of more than 200 mg/dL in a nonstressed, ambulatory subject supports the diagnosis of Diabetes Mellitus. Hematocrit Auto (Bld) [Volum e fraction]Ordered By: Mike Brian on 07-27-2023 Hematocrit (Bld) [Volume fraction] 33.1 % 34.0-46.4 [facility] Hemoglobin [Mass/volume] in BloodOrdered By: Mike Brian on 07-27-2023 Hemoglobin (Bld) [Mass/Vol] 10.6 g/dL 11.8-15.4 [facility] INR in Platelet poor plasma by Coagulation assayOrdered By: Mike Brian on 07-27-2023 INR Coag (PPP) [Relative time] 1.3 {INR} [facility] Comment on above: INR Therapeutic Rang e [...] Ketones Auto test strip (U) [Mass/Vol]Ordered By: Mike Brian on 07-27-2023 Ketones (U) [Mass/Vol] Negative Negative Fi [facility] Leukocytes [#/volume] correc qi for nucleated erythrocytes in Blood by Automated counOrdered By: Mike Brian on 07-27-2023 WBC corrected for nucl RBC Auto (Bld) [#/Vol] 7.8 10*3/uL 3.8-11.6 [facility] Lipase [Enzymatic activity/v olume] in Serum or PlasmaOrdered By: Mike Brian on 07-27-2023 Lipase [Catalytic activity/Vol] 15.0 U/L 11.0-82.0 [facility] Lymphocytes Auto (Bld) [#/Vo l]Ordered By: Mike Brian on 07-27-2023 Lymphocytes (Bld) [#/Vol] 0.6 10*3/uL 1.00-4.8 [facility] Lymphocytes/100 WBC Auto (Bl d)Ordered By: Mike Brian on 07-27-2023 Lymphocytes/100 WBC (Bld) 7.8 % . [facility] MCH Auto (RBC) [Entitic mass ]Ordered By: Mike Brian on 07-27-2023 MCH (RBC) [Entitic mass] 23.5 pg 24.7-34.3 [facility] MCHC Auto (RBC) [Mass/Vol]Or dered By: Mike Brian on 07-27-2023 MCHC (RBC) [Mass/Vol] 31.9 g/dL 32.0-35.0 [facility] MCV Auto (RBC) [Entitic vol] Ordered By: Mike Brian on 07-27-2023 MCV (RBC) [Entitic vol] 73.6 fL 80-100 [facility] Monocyte distribution width [Entitic volume] in Blood by AutomatedOrdered By: Mike Brian on 07-27-2023 Monocyte distribution width Auto (Bld) [Entitic vol] 18.84 % 0.00-20.00 [facility] Monocytes Auto (Bld) [#/Vol] Ordered By: Mike Brian on 07-27-2023 Monocytes (Bld) [#/Vol] 0.6 10*3/uL 0.0-0.8 [facility] Monocytes/100 WBC Auto (Bld) Ordered By: Mike Brian on 07-27-2023 Monocytes/100 WBC (Bld) 7.4 % . [facility] Natriuretic peptide B [Mass/ Vol]Ordered By: Mike Brian on 07-27-2023 Natriuretic peptide B (Bld) [Mass/Vol] 92.0 pg/mL 5-100 [facility] Neutrophils Auto (Bld) [#/Vo l]Ordered By: Mike Brian on 07-27-2023 Neutrophils (Bld) [#/Vol] 6.5 10*3/uL 1.8-7.7 [facility] Neutrophils/100 WBC Auto (Bl d)Ordered By: Mike Brian on 07-27-2023 Neutrophils/100 WBC (Bld) 83.5 % . [facility] Nitrite Test strip Ql (U)Ord ered By: Mike Brian on 07-27-2023 Nitrite Ql (U) Negative Negative [facility] No Panel InformationOrdered By: Mike Brian on 07-27-2023 Estimated GFR (CKD-EPI) > 60.0 mL/Min [facility] Creatinine Clearance (Chem 52.10 [facility] Nucleated erythrocytes [Pres ence] in Blood by Automated countOrdered By: Mike Brian on 07-27-2023 Nucleated RBC Auto Ql (Bld) 0.1 /100{WBC} 0-0.5 [facility] Platelet mean volume Auto (B ld) [Entitic vol]Ordered By: Mike Brian on 07-27-2023 Platelet mean volume (Bld) [Entitic vol] 8.1 fL 6.3-10.7 [facility] Platelets Auto (Bld) [#/Vol] Ordered By: Mike Brian on 07-27-2023 Platelets (Bld) [#/Vol] 328 10*3/uL 150-450 [facility] Potassium [Moles/volume] in Serum or PlasmaOrdered By: Mike Brian on 07-27-2023 Potassium [Moles/Vol] 3.9 mmol/L 3.5-5.1 [facility] Protein Auto test strip (U) [Mass/Vol]Ordered By: Mike Brian on 07-27-2023 Protein (U) [Mass/Vol] Negative Negative [facility] Protein [Mass/volume] in Ser um or PlasmaOrdered By: Mike Brian on 07-27-2023 Protein [Mass/Vol] 7.1 g/dL 6.4-8.9 [facility] Prothrombin time (PT)Ordered By: Mike Brian on 07-27-2023 PT Coag (PPP) [Time] 15.6 s 9.0-12.9 [facility] Comment on above: A hematocrit value g reater than 55% may lead to inaccurate results in coagulation testing. Patients having hematocrit values >55% require a special collection tube for coagulation studies. Please contact the laboratory at [phone] for redraw instructions. RBC Auto (Bld) [#/Vol]Ordere d By: Mike Brian on 07-27-2023 RBC (Bld) [#/Vol] 4.49 10*6/uL 3.60-5.00 [facility] [place] Serum or plasma albumin/glob ulin mass ratioOrdered By: Mike Brian on 07-27-2023 Albumin/Globulin [Mass ratio] 1.1 {ratio} [facility] Serum or plasma anion gap de terminationOrdered By: Mike Brian on 07-27-2023 Anion gap [Moles/Vol] 12.2 mmol/L 6.0-15.0 [facility] Sodium [Moles/volume] in Ser um or PlasmaOrdered By: Mike Brian on 07-27-2023 Sodium [Moles/Vol] 138 mmol/L 136-145 [facility] Specific gravity Auto test s trip (U) [Rel density]Ordered By: Mike Brian on 07-27-2023 Specific gravity (U) [Rel density] 1.005 1.001-1.03 0 [facility] Troponin I.cardiac [Mass/vol ume] in Serum or Plasma by Detection limit <= 0.01 ng/Ordered By: Mike Brian on 07-27-2023 Troponin I.cardiac DL <= 0.01 ng/mL [Mass/Vol] 4.3 pg/mL 0.0-15.0 [facility] Urea nitrogen [Mass/volume] in Serum or PlasmaOrdered By: Mike Brian on 07-27-2023 Urea nitrogen [Mass/Vol] 14 mg/dL 7-25 [facility] Urine clarity by refractomet ry automatedOrdered By: Mike Brian on 07-27-2023 Clarity Refractometry automated (U) Clear Clear [facility] Urine glucose measurement by automated test strip (mass/volume)Ordered By: Mike Brian on 07-27-2023 Glucose Auto test strip (U) [Mass/Vol] Normal mg/dL Normal [facility] Urine hemoglobin detection b y automated test stripOrdered By: Mike Brian on 07-27-2023 Hemoglobin Auto test strip Ql (U) Negative Negative [facility] Urine leukocyte esterase det ection by automated test stripOrdered By: Mike Brian on 07-27-2023 Leukocyte esterase Auto test strip Ql (U) Negative Negative [facility] Urobilinogen Auto test strip (U) [Mass/Vol]Ordered By: Mike Brian on 07-27-2023 Urobilinogen (U) [Mass/Vol] Normal mg/dL Normal [facility] WBC Auto (Bld) [#/Vol]Ordere d By: Mike Brian on 07-27-2023 WBC (Bld) [#/Vol] 7.8 10*3/uL 3.8-11.6 [facility] pH Auto test strip (U)Ordere d By: Mike Brian on 07-27-2023 pH (U) 6.5 [pH] 5.0-9.0 [facility] Office Visit (Cardiology)on 04-16-2023 Follow-up visit Diagnoses/Problems [...] Weight Tips; Status:Complete - Retrospective Authorization; Done: [id number] Some eating tips that can help you lose weight.; Status:Complete - Retrospective Authorization; Done: [id number] Paroxysmal atrial fibrillation IO EKG Electrocardiogram- 12 Lead; Status:Complete; Done: [id number] SocHx: Never a smoker Tobacco Use Screening; Status:Complete; Done: [id number] Patient Instructions Please bring all medicines, vitamins, [...] medical therapy is recommended Charmaine Pinedo MD, [facility] Surgical History Problems History of Appendectomy History [...] Systems Cardiovasc (more content not included)... Normal [employer] Tobacco Screening.on 023 Adult depression screening assessment No [facility] [employer] Work Phone: Fall risk assessment a) No falls within the last year [facility] [employer] Work Phone: Tobacco use status CPHS b) No [facility] [employer] [facility] Work Phone: Activated partial thrombopla stin time (aPTT) in platelet poor plasma by coagulation aOrdered By: Kodi Smith on 03-19-2023 aPTT Coag (PPP) [Time] 33.6 s 25.1-36.5 [facility] Alanine aminotransferase [En zymatic activity/volume] in Serum or PlasmaOrdered By: Kodi Smith on 03-19-2023 ALT [Catalytic activity/Vol] 9 U/L 7-52 [facility] Albumin [Mass/volume] in Ser um or Plasma by Bromocresol green (BCG) dye binding methoOrdered By: Kodi Smith on 03-19-2023 Albumin BCG dye [Mass/Vol] 3.9 g/dL 3.5-5.7 [facility] Alkaline phosphatase [Enzyma tic activity/volume] in Serum or PlasmaOrdered By: Kodi Smith on 03-19-2023 ALP [Catalytic activity/Vol] 100 U/L 34-104 [facility] Aspartate aminotransferase [ Enzymatic activity/volume] in Serum or PlasmaOrdered By: Kodi Smith on 03-19-2023 AST [Catalytic activity/Vol] 13 U/L 13-39 [facility] Basophils Auto (Bld) [#/Vol] Ordered By: Kodi Smith on 03-19-2023 Basophils (Bld) [#/Vol] 0.0 10*3/uL 0.0-0.2 [facility] Basophils/100 WBC Auto (Bld) Ordered By: Kodi Smith on 03-19-2023 Basophils/100 WBC (Bld) 0.5 % . [facility] Bilirubin.total [Mass/volume ] in Serum or PlasmaOrdered By: Kodi Smith on 03-19-2023 Bilirubin [Mass/Vol] 0.4 mg/dL 0.3-1.0 [facility] Calcium [Mass/volume] in Ser um or PlasmaOrdered By: Kodi Smith on 03-19-2023 Calcium [Mass/Vol] 9.1 mg/dL 8.6-10.3 [facility] Carbon dioxide, total [Moles /volume] in Serum or PlasmaOrdered By: Kodi Smith on 03-19-2023 CO2 [Moles/Vol] 26.7 mmol/L 21.0-31.0 [facility] Chloride [Moles/volume] in S marylou or PlasmaOrdered By: Kodi Smith on 03-19-2023 Chloride [Moles/Vol] 105 mmol/L 98-107 [facility] Creatine kinase [Enzymatic a ctivity/volume] in Serum or PlasmaOrdered By: Kodi Smith on 03-19-2023 CK [Catalytic activity/Vol] 40 U/L 30-223 [facility] Creatinine [Mass/volume] in Serum or PlasmaOrdered By: Kodi Smith on 03-19-2023 Creatinine [Mass/Vol] 0.80 mg/dL 0.60-1.20 [facility] Eosinophils Auto (Bld) [#/Vo l]Ordered By: Kodi Smith on 03-19-2023 Eosinophils (Bld) [#/Vol] 0.1 10*3/uL 0.0-0.45 [facility] Eosinophils/100 WBC Auto (Bl d)Ordered By: Kodi Smith on 03-19-2023 Eosinophils/100 WBC (Bld) 1.4 % . [facility] Erythrocyte distribution wid th Auto (RBC) [Ratio]Ordered By: Kodi Smith on 03-19-2023 Erythrocyte distribution width (RBC) [Ratio] 16.8 % 11.9-15.3 [facility] Globulin Calc (S) [Mass/Vol] Ordered By: Kodi Smith on 03-19-2023 Globulin (S) [Mass/Vol] 2.8 g/dL [facility] Glucose [Mass/volume] in Ser um or PlasmaOrdered By: Kodi Smith on 03-19-2023 Glucose [Mass/Vol] 106 mg/dL 70-100 [facility] Comment on above: ADA recommended refe rence rangeRandom Glucose Reference Range is dependent on time and content of last meal. Glucose of more than 200 mg/dL in a nonstressed, ambulatory subject supports the diagnosis of Diabetes Mellitus. Hematocrit Auto (Bld) [Volum e fraction]Ordered By: Kodi Smith on 03-19-2023 Hematocrit (Bld) [Volume fraction] 31.4 % 34.0-46.4 [facility] Hemoglobin [Mass/volume] in BloodOrdered By: Kodi Smith on 03-19-2023 Hemoglobin (Bld) [Mass/Vol] 10.1 g/dL 11.8-15.4 [facility] Laboratory - CoagulationOrde red By: Kodi Smith on 03-19-2023 PT Coag (PPP) [Time] 13.7 s 9.0-12.9 [facility] Leukocytes [#/volume] correc qi for nucleated erythrocytes in Blood by Automated counOrdered By: Kodi Smith on 03-19-2023 WBC corrected for nucl RBC Auto (Bld) [#/Vol] 7.2 10*3/uL 3.8-11.6 [facility] Lymphocytes Auto (Bld) [#/Vo l]Ordered By: Kodi Smith on 03-19-2023 Lymphocytes (Bld) [#/Vol] 0.8 10*3/uL 1.00-4.8 [facility] Lymphocytes/100 WBC Auto (Bl d)Ordered By: Kodi Smith on 03-19-2023 Lymphocytes/100 WBC (Bld) 10.9 % . [facility] MCH Auto (RBC) [Entitic mass ]Ordered By: Kodi Smith on 03-19-2023 MCH (RBC) [Entitic mass] 23.3 pg 24.7-34.3 [facility] MCHC Auto (RBC) [Mass/Vol]Or dered By: Kodi Smith on 03-19-2023 MCHC (RBC) [Mass/Vol] 32.0 g/dL 32.0-35.0 [facility] MCV Auto (RBC) [Entitic vol] Ordered By: Kodi Smith on 03-19-2023 MCV (RBC) [Entitic vol] 72.9 fL 80-100 [facility] Magnesium [Mass/volume] in S marylou or PlasmaOrdered By: Kodi Smith on 03-19-2023 Magnesium [Mass/Vol] 1.9 mg/dL 1.9-2.7 [facility] Monocyte distribution width [Entitic volume] in Blood by AutomatedOrdered By: Kodi Smith on 03-19-2023 Monocyte distribution width Auto (Bld) [Entitic vol] 19.02 % 0.00-20.00 [facility] Monocytes Auto (Bld) [#/Vol] Ordered By: Kodi Smith on 03-19-2023 Monocytes (Bld) [#/Vol] 0.6 10*3/uL 0.0-0.8 [facility] Monocytes/100 WBC Auto (Bld) Ordered By: Kodi Smith on 03-19-2023 Monocytes/100 WBC (Bld) 7.7 % . [facility] Neutrophils Auto (Bld) [#/Vo l]Ordered By: Kodi Smith on 03-19-2023 Neutrophils (Bld) [#/Vol] 5.7 10*3/uL 1.8-7.7 [facility] Neutrophils/100 WBC Auto (Bl d)Ordered By: Kodi Smith on 03-19-2023 Neutrophils/100 WBC (Bld) 79.5 % . [facility] No Panel InformationOrdered By: Kodi Smith on 03-19-2023 Estimated GFR (CKD-EPI) > 60.0 mL/Min [facility] Creatinine Clearance (Chem 57.01 [facility] Nucleated erythrocytes [Pres ence] in Blood by Automated countOrdered By: Kodi Smith on 03-19-2023 Nucleated RBC Auto Ql (Bld) 0.0 /100{WBC} 0-0.5 [facility] Platelet mean volume Auto (B ld) [Entitic vol]Ordered By: Kodi Smith on 03-19-2023 Platelet mean volume (Bld) [Entitic vol] 8.2 fL 6.3-10.7 [facility] Platelet poor plasma interna tional normalized ratio (INR) by coagulation assay (relatOrdered By: Kodi Smith on 03-19-2023 INR Coag (PPP) [Relative time] 1.2 {INR} [facility] Comment on above: INR Therapeutic Rang e [...] 4.5 Platelets Auto (Bld) [#/Vol] Ordered By: Kodi Smith on 03-19-2023 Platelets (Bld) [#/Vol] 291 10*3/uL 150-450 [facility] Potassium [Moles/volume] in Serum or PlasmaOrdered By: Kodi Smith on 03-19-2023 Potassium [Moles/Vol] 4.0 mmol/L 3.5-5.1 [facility] Protein [Mass/volume] in Ser um or PlasmaOrdered By: Kodi Smith on 03-19-2023 Protein [Mass/Vol] 6.7 g/dL 6.4-8.9 [facility] RBC Auto (Bld) [#/Vol]Ordere d By: Kodi Smith on 03-19-2023 RBC (Bld) [#/Vol] 4.31 10*6/uL 3.60-5.00 [facility] [place] Serum or plasma albumin/glob ulin mass ratioOrdered By: Kodi Smith on 03-19-2023 Albumin/Globulin [Mass ratio] 1.4 {ratio} [facility] Serum or plasma anion gap de terminationOrdered By: Kodi Smith on 03-19-2023 Anion gap [Moles/Vol] 11.3 mmol/L 6.0-15.0 [facility] Sodium [Moles/volume] in Ser um or PlasmaOrdered By: Kodi Smith on 03-19-2023 Sodium [Moles/Vol] 139 mmol/L 136-145 [facility] Troponin I.cardiac [Mass/vol ume] in Serum or Plasma by Detection limit <= 0.01 ng/Ordered By: Kodi Smith on 03-19-2023 Troponin I.cardiac DL <= 0.01 ng/mL [Mass/Vol] 4.1 pg/mL 0.0-15.0 [facility] Urea nitrogen [Mass/volume] in Serum or PlasmaOrdered By: Kodi Smith on 03-19-2023 Urea nitrogen [Mass/Vol] 18 mg/dL 7-25 [facility] WBC Auto (Bld) [#/Vol]Ordere d By: Kodi Smith on 03-19-2023 WBC (Bld) [#/Vol] 7.2 10*3/uL 3.8-11.6 [facility] Office Visit (Cardiology)on 10-14-2022 Follow-up visit [...] emergency department back in May 2022 at [facility] the record from the visit [...] be getting under control. Charmaine Pinedo MD, [facility] Surgical History Problems History of Appendectomy History [...] Screening.on 023 Adult depression screening assessment No [facility] [employer] DO Work Phone: Fall risk assessment a) No falls within the last year [facility] [employer] DO Work Phone: Tobacco use status CPHS b) No [facility] [employer] DO Work Phone: CBC AUTO DIFFon 10-04-2022 BASO # 0.0 103/ul Normal 0.0-0.1 [facility] Comment on above: Performed By: #### C BC #### [facility] [address] [place] [address] Dr. Madhuri Justice Basophils/100 WBC (Bld) 0.3 % Normal 0.2-2.0 [facility] Comment on above: Performed By: #### C BC #### [facility] [address] [place] [address] Dr. Madhuri Justice EO # 0.1 103/ul Normal 0.0-0.7 [facility] Comment on above: Performed By: #### C BC #### [facility] [address] [place] [address] Dr. Madhuri Justice Eosinophils/100 WBC (Bld) 1.7 % Normal 0.9-7.0 [facility] Comment on above: Performed By: #### C BC #### [facility] [address] [place] [address] Dr. Madhuri Justice Erythrocyte distribution width (RBC) [Ratio] 16.2 % Critically high 11.0-15.0 [facility] Comment on above: Performed By: #### C BC #### [facility] [address] [place] [address] Dr. Madhuri Justice Hematocrit (Bld) [Volume fraction] 33.0 % Critically low 36.0-48.0 [facility] Comment on above: Performed By: #### C BC #### [facility] [address] [place] [address] Dr. Madhuri Justice Hemoglobin (Bld) [Mass/Vol] 10.9 g/dL Critically low 12.0-16.0 [facility] Comment on above: Performed By: #### C BC #### [facility] [address] [place] [address] Dr. Madhuri Justice IG # 0.02 10e3/ul Normal 0.00-0.03 [facility] Comment on above: Performed By: #### C BC #### [facility] [address] [place] [address] Dr. Madhuri Justice IG % 0.3 % Normal 0.0-0.5 [facility] Comment on above: Performed By: #### C BC #### [facility] [address] [place] [address] Dr. Madhuri Justice LYMPH # 0.8 103/ul Critically low 1.2-3.8 [facility] Comment on above: Performed By: #### C BC #### [facility] [address] [place] [address] Dr. Madhuri Justice Lymphocytes/100 WBC (Bld) 13.4 % Critically low 20.5-60.0 [facility] Comment on above: Performed By: #### C BC #### [facility] [address] [place] [address] Dr. Madhuri Justice MANUAL DIFF REQ NO Normal [facility] Comment on above: Performed By: #### C BC #### [facility] [address] [place] [address] Dr. Madhuri Justice MCH (RBC) [Entitic mass] 24.4 pg Critically low 26.7-34.0 [facility] Comment on above: Performed By: #### C BC #### [facility] [address] [place] [address] Dr. Madhuri Justice MCHC (RBC) [Mass/Vol] 33.0 g/dL Normal 29.9-35.2 [facility] Comment on above: Performed By: #### C BC #### [facility] [address] [address] [address] Madhuri Justice MCV (RBC) [Entitic vol] 73.8 fL Critically low 81.0-99.0 [facility] Comment on above: Performed By: #### C BC #### [facility] [address] [address] [address] Madhuri Justice MONO # 0.5 103/ul Normal 0.3-0.8 [facility] Comment on above: Performed By: #### C BC #### [facility] [address] [place] [address] Dr. Madhuri Justice Monocytes/100 WBC (Bld) 8.0 % Normal 1.7-12.0 [facility] Comment on above: Performed By: #### C BC #### [facility] [address] [place] [address] Dr. Madhuri Justice NEUT # 4.6 103/ul Normal 1.4-6.5 [facility] Comment on above: Performed By: #### C BC #### [facility] [address] [place] [address] Dr. Madhuri Justice Neutrophils/100 WBC (Bld) 76.3 % Critically high 43.0-75.0 [facility] Comment on above: Performed By: #### C BC #### [facility] [address] [place] [address] Dr. Madhuri Justice Platelet mean volume (Bld) [Entitic vol] 9.5 fL Normal 9.5-13.5 [facility] Comment on above: Performed By: #### C BC #### [facility] [address] [place] [address] Dr. Madhuri Justice PLT 249 103/ul Normal 150-450 [facility] Comment on above: Performed By: #### C BC #### [facility] [address] [place] [address] Dr. Madhuri Justice RBC 4.47 106/ul Normal 4.20-5.40 [facility] Comment on above: Performed By: #### C BC #### [facility] [address] [address] [address] Madhuri Justice WBC 6.0 103/ul Normal 4.0-11.0 [facility] Comment on above: Performed By: #### C BC #### [facility] [address] [address] [address] Madhuri Justice LIPID PROFILEon 10-04-2022 CHOL-HDL RATIO NORM SEE BELOW Normal [facility] Comment on above: Result Comment: 3.3 - 4.4 LOW RISK 4.4 - 7.1 AVERAGE RISK 7.1 - 11.0 MODERATE RISK >11.0 HIGH RISK Performed By: #### L ACT #### [facility] [address] [place] [address] Dr. Madhuri Justice Cholesterol [Mass/Vol] 159 mg/dL Normal <=200 [facility] Comment on above: Performed By: #### L ACT #### [facility] [address] [place] [address] Dr. Madhuri Justice Cholesterol in HDL [Mass/Vol] 54 mg/dL Normal 40-60 [facility] Comment on above: Performed By: #### L ACT #### [facility] [address] [place] [address] Dr. Madhuri Justice Cholesterol in LDL [Mass/Vol] 84.4 mg/dL Normal [facility] Comment on above: Performed By: #### L ACT #### [facility] [address] [place] [address] Dr. Madhuri Justice Cholesterol.total/Chol esterol in HDL [Mass ratio] 2.9 {ratio} Normal [facility] Comment on above: Performed By: #### L ACT #### [facility] [address] [place] [address] Dr. Madhuri Justice HDL NORMAL > or = 60 mg/dl - LO W CARDIOVASCULAR RISK <40 mg/dl - HIGH CARDIOVASCULAR RISK Normal [facility] Comment on above: Performed By: #### L ACT #### [facility] [address] [place] [address] Dr. Madhuri Justice LDL CALC NORMAL SEE BELOW Normal [facility] Comment on above: Result Comment: <100 mg/dl OPTIMAL 100 - 129 mg/dl NEAR OR ABOVE OPTIMAL 130 - 159 mg/dl BORDERLINE HIGH 160 - 189 mg/dl HIGH >190 mg/dl VERY HIGH Performed By: #### L ACT #### [facility] [address] [address] [address] Madhuri Justice Triglyceride [Mass/Vol] 103 mg/dL Normal <=150 [facility] Comment on above: Performed By: #### L ACT #### [facility] [address] [address] [address] Madhuri Justice VLDL CALC 20.6 mg/dL Normal [facility] Comment on above: Performed By: #### L ACT #### [facility] [address] [address] [address] Madhuri Justice PROF 14(COMP METB)on 023 Albumin [Mass/Vol] 3.0 g/dL Critically low 3.4-5.0 [facility] Comment on above: Performed By: #### L IPID, CMP #### [facility] [address] [place] [address] Dr. Madhuri Justice Albumin/Globulin [Mass ratio] 0.8 {ratio} Normal [facility] Comment on above: Performed By: #### L IPID, CMP #### [facility] [address] [place] [address] Dr. Madhuri Justice ALP [Catalytic activity/Vol] 103 U/L Normal 46-116 [facility] Comment on above: Performed By: #### L IPID, CMP #### [facility] [address] [place] [address] Dr. Madhuri Justice ALT [Catalytic activity/Vol] 10 U/L Critically low 14-59 [facility] Comment on above: Performed By: #### L IPID, CMP #### [facility] [address] [place] [address] Dr. Madhuri Justice Anion gap [Moles/Vol] 10.5 mmol/L Normal [facility] Comment on above: Performed By: #### L IPID, CMP #### [facility] [address] [address] [address] Madhuri Justice AST [Catalytic activity/Vol] 13 U/L Critically low 15-37 [facility] Comment on above: Performed By: #### L IPID, CMP #### [facility] [address] [address] [address] Madhuri Justice Bilirubin [Mass/Vol] 0.6 mg/dL Normal 0.2-1.0 [facility] Comment on above: Performed By: #### L IPID, CMP #### [facility] [address] [address] [address] Madhuri Justice Calcium [Mass/Vol] 8.9 mg/dL Normal 8.5-10.1 [facility] Comment on above: Performed By: #### L IPID, CMP #### [facility] [address] [place] [address] Dr. Madhuri Justice Chloride [Moles/Vol] 105 mmol/L Normal 98-107 [facility] Comment on above: Performed By: #### L IPID, CMP #### [facility] [address] [place] [address] Dr. Madhuri Justice CO2 [Moles/Vol] 30.6 mmol/L Normal 21.0-32.0 [facility] Comment on above: Performed By: #### L IPID, CMP #### [facility] [address] [place] [address] Dr. Madhuri Justice Creatinine [Mass/Vol] 0.85 mg/dL Normal 0.55-1.02 [facility] Comment on above: Performed By: #### L IPID, CMP #### [facility] [address] [place] [address] Dr. Madhuri Justice EGFR-AF FIJIAN >60 Normal >=60 [facility] Comment on above: Performed By: #### L IPID, CMP #### [facility] [address] [place] [address] Dr. Madhuri Justice EGFR-NON AF FIJIAN >60 Normal >=60 [facility] Comment on above: Performed By: #### L IPID, CMP #### [facility] [address] [address] [address] Madhuri Justice Globulin (S) [Mass/Vol] 3.9 g/dL Normal [facility] Comment on above: Performed By: #### L IPID, CMP #### [facility] [address] [address] [address] Madhuri Justice Glucose [Mass/Vol] 112 mg/dL Critically high 74-106 [facility] Comment on above: Performed By: #### L IPID, CMP #### [facility] [address] [place] [address] Dr. Madhuri Justice Potassium [Moles/Vol] 4.1 mmol/L Normal 3.5-5.1 [facility] Comment on above: Performed By: #### L IPID, CMP #### [facility] [address] [place] [address] Dr. Madhuri Justice Protein [Mass/Vol] 6.9 g/dL Normal 6.4-8.2 [facility] Comment on above: Performed By: #### L IPID, CMP #### [facility] [address] [place] [address] Dr. Madhuri Justice Sodium [Moles/Vol] 142 mmol/L Normal 136-145 [facility] Comment on above: Performed By: #### L IPID, CMP #### [facility] [address] [place] [address] Dr. Madhuri Justice Urea nitrogen [Mass/Vol] 15.0 mg/dL Normal 7.0-18.0 [facility] Comment on above: Performed By: #### L IPID, CMP #### [facility] [address] [place] [address] Dr. Madhuri Justice Urea nitrogen/Creatinine [Mass ratio] 17.6 mg/mg Normal [facility] Comment on above: Performed By: #### L IPID, CMP #### [facility] [address] [place] [address] Dr. Madhuri Justice Activated partial thrombopla stin time (aPTT) in platelet poor plasma by coagulation aOrdered By: Robby York on 06-06-2022 aPTT Coag (PPP) [Time] 32.7 s 25.1-36.5 [facility] Albumin [Mass/volume] in Ser um or PlasmaOrdered By: Robby York on 06-06-2022 Albumin [Mass/Vol] 2.8 g/dL 3.2-5.5 [facility] Automated erythrocytes count in urine sediment (number/area)Ordered By: Mike Brian on 06-06-2022 RBC Auto (Urine sed) [#/Area] None seen [HPF] 0-4 [facility] Automated leukocytes count i n urine sediment (number/area)Ordered By: Mike Brian on 06-06-2022 WBC Auto (Urine sed) [#/Area] 0-1 [HPF] 0-4 [facility] Basophils Auto (Bld) [#/Vol] Ordered By: Robby York on 06-06-2022 Basophils (Bld) [#/Vol] 0.0 10*3/uL 0.0-0.2 [facility] Basophils/100 WBC Auto (Bld) Ordered By: Robby York on 06-06-2022 Basophils/100 WBC (Bld) 0.5 % . [facility] Bilirubin Test strip Ql (U)O rdered By: Mike Brian on 06-06-2022 Bilirubin Ql (U) Negative Negative [facility] Blood hemoglobin measurement (mass/volume)Ordered By: Robby York on 06-06-2022 Hemoglobin (Bld) [Mass/Vol] 9.3 g/dL 11.8-15.4 [facility] Blood leukocytes automated c ount (number/volume)Ordered By: Robby York on 06-06-2022 WBC (Bld) [#/Vol] 5.1 10*3/uL 4.5-11.0 [facility] COVID-19 SOFIAOrdered By: Chris York on 06-06-2022 SARS-CoV+SARS-CoV-2 (COVID-19) Ag IA.rapid Ql (Resp) Negative Negative [facility] Comment on above: This is a duplicate Joselyn SARS Antigen (TERE) result to be used for statistical tracking purpose only. Color Auto (U)Ordered By: Honorio Brian on 06-06-2022 Color (U) Yellow Yellow [facility] Creatinine and Glomerular fi ltration rate.predicted panel (S/P/Bld)Ordered By: Robby York on 06-06-2022 Creatinine [Mass/Vol] 0.84 mg/dL 0.44-1.03 [facility] Eosinophils Auto (Bld) [#/Vo l]Ordered By: Robby York on 06-06-2022 Eosinophils (Bld) [#/Vol] 0.1 10*3/uL 0.0-0.45 [facility] Eosinophils/100 WBC Auto (Bl d)Ordered By: Robby York on 06-06-2022 Eosinophils/100 WBC (Bld) 1.9 % . [facility] Erythrocyte distribution wid th Auto (RBC) [Ratio]Ordered By: Robby York on 06-06-2022 Erythrocyte distribution width (RBC) [Ratio] 16.7 % 11.9-15.3 [facility] Estimated glomerular filtrat ion rate (GFR) non- AmericanOrdered By: Robby York on 06-06-2022 GFR/1.73 sq M.predicted among non-blacks MDRD (S/P/Bld) [Vol rate/Area] > 60 mL/Min [facility] Globulin Calc (S) [Mass/Vol] Ordered By: Robby York on 06-06-2022 Globulin (S) [Mass/Vol] 2.9 g/dL [facility] Hematocrit Auto (Bld) [Volum e fraction]Ordered By: Robby York on 06-06-2022 Hematocrit (Bld) [Volume fraction] 29.5 % 34.0-46.4 [facility] Ketones Auto test strip (U) [Mass/Vol]Ordered By: Mike Brian on 06-06-2022 Ketones (U) [Mass/Vol] Negative [facility] and C hemistry - challengeOrdered By: Robby York on 06-06-2022 Natriuretic peptide B (Bld) [Mass/Vol] 37.0 pg/mL 5-100 [facility] - CoagulationOrde red By: Robby York on 06-06-2022 PT Coag (PPP) [Time] 17.4 s 9.0-12.9 [facility] - Hematology and Cell countsOrdered By: Robby York on 06-06-2022 Nucleated RBC/100 WBC (Bld) [Ratio] 0.0 % 0-0.5 [facility] - UrinalysisOrder ed By: Mike Brian on 06-06-2022 Hyaline casts LM Ql (Urine sed) 0-8 [LPF] 0-8 [facility] Lymphocytes Auto (Bld) [#/Vo l]Ordered By: Robby York on 06-06-2022 Lymphocytes (Bld) [#/Vol] 0.7 10*3/uL 1.00-4.8 [facility] Lymphocytes/100 WBC Auto (Bl d)Ordered By: Robby York on 06-06-2022 Lymphocytes/100 WBC (Bld) 13.9 % . [facility] MCH Auto (RBC) [Entitic mass ]Ordered By: Robby York on 06-06-2022 MCH (RBC) [Entitic mass] 24.2 pg 24.7-34.3 [facility] MCHC Auto (RBC) [Mass/Vol]Or dered By: Robby York on 06-06-2022 MCHC (RBC) [Mass/Vol] 31.4 g/dL 32.0-35.0 [facility] MCV Auto (RBC) [Entitic vol] Ordered By: Robby York on 06-06-2022 MCV (RBC) [Entitic vol] 76.9 fL 80-100 [facility] Monocytes Auto (Bld) [#/Vol] Ordered By: Robby York on 06-06-2022 Monocytes (Bld) [#/Vol] 0.5 10*3/uL 0.0-0.8 [facility] Monocytes/100 WBC Auto (Bld) Ordered By: Robby York on 06-06-2022 Monocytes/100 WBC (Bld) 9.6 % . [facility] Neutrophils Auto (Bld) [#/Vo l]Ordered By: Robby York on 06-06-2022 Neutrophils (Bld) [#/Vol] 3.8 10*3/uL 1.8-7.7 [facility] Neutrophils/100 WBC Auto (Bl d)Ordered By: Robby York on 06-06-2022 Neutrophils/100 WBC (Bld) 74.1 % . [facility] Nitrite Test strip Ql (U)Ord ered By: Mike Brian on 06-06-2022 Nitrite Ql (U) Negative Negative [facility] No Panel InformationOrdered By: Robby York on 06-06-2022 Estimated GFR () > 60 mL/Min [facility] Comment on above: GFR estimated refere nce range: According to KDOQI guidelines, <60 ml/min/1.73m2 is sufficient to diagnose a patient with chronic kidney disease. Pharmacy Creatinine Clearance (Chem 83.60 [facility] SARS Antigen (LFIA) [facility] [place] Platelet mean volume Auto (B ld) [Entitic vol]Ordered By: Robby York on 06-06-2022 Platelet mean volume (Bld) [Entitic vol] 8.1 fL 6.3-10.7 [facility] Platelet poor plasma interna tional normalized ratio (INR) by coagulation assay (relatOrdered By: Robby York on 06-06-2022 INR Coag (PPP) [Relative time] 1.5 {INR} [facility] Comment on above: INR Therapeutic Rang e [...] 06-06-2022 Platelets (Bld) [#/Vol] 225 10*3/uL 150-450 [facility] Protein Auto test strip (U) [Mass/Vol]Ordered By: Mike Brian on 06-06-2022 Protein (U) [Mass/Vol] Negative Negative Fi [facility] Protein [Mass/volume] in Ser um or PlasmaOrdered By: Robby York on 06-06-2022 Protein [Mass/Vol] 5.7 g/dL 6.1-7.9 [facility] RBC Auto (Bld) [#/Vol]Ordere d By: Robby York on 06-06-2022 RBC (Bld) [#/Vol] 3.84 10*6/uL 3.60-5.00 [facility] [place] Serum or plasma alanine singleton otransferase measurement without P-5'-P (enzymatic activiOrdered By: Robby York on 06-06-2022 ALT No additional P-5'-P [Catalytic activity/Vol] 10 U/L 10-60 [facility] Serum or plasma albumin/glob ulin mass ratioOrdered By: Robby York on 06-06-2022 Albumin/Globulin [Mass ratio] 1.0 {ratio} [facility] Serum or plasma alkaline antwan sphatase measurement (enzymatic activity/volume)Ordered By: Robby York on 06-06-2022 ALP [Catalytic activity/Vol] 85 U/L 32-92 [facility] Serum or plasma anion gap de terminationOrdered By: Robby York on 06-06-2022 Anion gap [Moles/Vol] 12.5 mmol/L 6.0-15.0 [facility] Serum or plasma aspartate am inotransferase measurement (enzymatic activity/volume)Ordered By: Robby York on 06-06-2022 AST [Catalytic activity/Vol] 15 U/L 10-42 [facility] Serum or plasma calcium arabella urement (mass/volume)Ordered By: Robby York on 06-06-2022 Calcium [Mass/Vol] 8.3 mg/dL 8.2-10.2 [facility] Serum or plasma chloride marlen surement (moles/volume)Ordered By: Robby York on 06-06-2022 Chloride [Moles/Vol] 106 mmol/L 95-114 [facility] Serum or plasma glucose arabella urement (mass/volume)Ordered By: Robby York on 06-06-2022 Glucose [Mass/Vol] 115 mg/dL 70-100 [facility] Comment on above: ADA recommended refe rence range Random Glucose Reference Range is dependent on time and content of last meal. Glucose of more than 200 mg/dL in a nonstressed, ambulatory subject supports the diagnosis of Diabetes Mellitus. Serum or plasma potassium me asurement (moles/volume)Ordered By: Robby York on 06-06-2022 Potassium [Moles/Vol] 3.7 mmol/L 3.5-5.1 [facility] Serum or plasma sodium measu rement (moles/volume)Ordered By: Robby York on 06-06-2022 Sodium [Moles/Vol] 140 mmol/L 136-146 [facility] Serum or plasma total biliru bin measurement (mass/volume)Ordered By: Robby York on 06-06-2022 Bilirubin [Mass/Vol] 0.4 mg/dL 0.3-1.2 [facility] Serum or plasma total carbon dioxide measurement (moles/volume)Ordered By: Robby York on 06-06-2022 CO2 [Moles/Vol] 25.2 mmol/L 22.0-30.0 [facility] Serum or plasma urea nitroge n measurement (mass/volume)Ordered By: Robby York on 06-06-2022 Urea nitrogen [Mass/Vol] 14 mg/dL 9-23 [facility] Specific gravity Auto test s trip (U) [Rel density]Ordered By: Mike Brian on 06-06-2022 Specific gravity (U) [Rel density] 1.013 1.001-1.03 0 [facility] Squamous epithelial cells de tection in urine sediment by light microscopyOrdered By: Mike Brian on 06-06-2022 Epithelial cells.squamous LM Ql (Urine sed) 0-1 [HPF] 0-2 [facility] Troponin I.cardiac [Mass/vol ume] in Serum or Plasma by High sensitivity methodOrdered By: Mike Brian on 06-06-2022 Troponin I.cardiac High sensitivity method [Mass/Vol] 7 pg/mL 0-15 [facility] Urine bacteria detection by automated methodOrdered By: Mike Brian on 06-06-2022 Bacteria Auto Ql (U) None seen None Seen [facility] Urine clarity by refractomet ry automatedOrdered By: Mike Brian on 06-06-2022 Clarity Refractometry automated (U) Clear Clear [facility] Urine glucose measurement by automated test strip (mass/volume)Ordered By: Mike Brian on 06-06-2022 Glucose Auto test strip (U) [Mass/Vol] Normal mg/dL Normal [facility] Urine hemoglobin detection b y automated test stripOrdered By: Mike Brian on 06-06-2022 Hemoglobin Auto test strip Ql (U) Negative Negative [facility] Urine leukocyte esterase det ection by automated test stripOrdered By: Mike Brian on 06-06-2022 Leukocyte esterase Auto test strip Ql (U) 2+ Negative [facility] Urobilinogen Auto test strip (U) [Mass/Vol]Ordered By: Mike Brian on 06-06-2022 Urobilinogen (U) [Mass/Vol] Normal mg/dL Normal [facility] pH Auto test strip (U)Ordere d By: Mike Brian on 06-06-2022 pH (U) 7.0 [pH] 5.0-9.0 [facility] Tobacco Screening.on 022 Adult depression screening assessment No [facility] [employer]et[employer] nirali 250 DO Work Phone: Fall risk assessment a) No falls within the last year [facility] [employer] nirali 250 DO Work Phone: Tobacco use status [facility]PH[facility] b) No [facility] [employer] nirali 250 DO Work Phone: OVA AND PARASITE EXAMINATION on 12-27-2021 Ova + Parasite Exam Final report Normal [facility] Comment on above: Result Comment: Thes e results were obtained using wet preparation(s) and trichrome stained smear. This test does not include testing for Cryptosporidium parvum, Cyclospora, or Microsporidia. Performed By: #### O VAPE #### [facility] [address] [place] [id number] [address] Madhuri Justice Result 1 Comment Normal [facility] Comment on above: Result Comment: No o va, cysts, or parasites seen. . One negative specimen does not rule out the possibility of a parasitic infection. Performed By: #### O VAPE #### [facility] [address] [place] [address] Dr. Madhuri Justice GIARDIA LAMBLIA AND CRYPTO D ETECTIONon 12-18-2021 Cryptosporidium EIA Negative Normal Negative [facility] Comment on above: Performed By: #### G IACRY #### [facility] [address] [place] [address] Dr. Madhuri Justice Giardia lamblia Ag, EIA Negative Normal Negative [facility] Comment on above: Performed By: #### G IACRY #### [facility] [address] [place] [address] Dr. Madhuri Justice C. DIFF PCRon 12-16-2021 C. DIFFICILE PCR Negative Normal NEGATIVE [facility] Comment on above: Performed By: #### C DIFPOC #### [facility] [address] [place] [address] Dr. Madhuri Justice CBC AUTO DIFFon 12-16-2021 BASO # 0.0 103/ul Normal 0.0-0.1 [facility] Comment on above: Performed By: #### C BC #### [facility] [address] [place] [address] Dr. Madhuri Justice Basophils/100 WBC (Bld) 0.4 % Normal 0.2-2.0 [facility] Comment on above: Performed By: #### C BC #### [facility] [address] [place] [address] Dr. Madhuri Justice EO # 0.1 103/ul Normal 0.0-0.7 [facility] Comment on above: Performed By: #### C BC #### [facility] [address] [place] [address] Dr. Madhuri Justice Eosinophils/100 WBC (Bld) 1.0 % Normal 0.9-7.0 [facility] Comment on above: Performed By: #### C BC #### [facility] [address] [place] [address] Dr. Madhuri Justice Erythrocyte distribution width (RBC) [Ratio] 16.2 % Critically high 11.0-15.0 [facility] Comment on above: Performed By: #### C BC #### [facility] [address] [place] [address] Dr. Madhuri Justice Hematocrit (Bld) [Volume fraction] 37.7 % Normal 36.0-48.0 [facility] Comment on above: Performed By: #### C BC #### [facility] [address] [place] [address] Dr. Madhuri Justice Hemoglobin (Bld) [Mass/Vol] 11.2 g/dL Critically low 12.0-16.0 [facility] Comment on above: Performed By: #### C BC #### [facility] [address] [place] [address] Dr. Madhuri Justice IG # 0.01 10e3/ul Normal 0.00-0.03 [facility] Comment on above: Performed By: #### C BC #### [facility] [address] [place] [address] Dr. Madhuri Justice IG % 0.1 % Normal 0.0-0.5 [facility] Comment on above: Performed By: #### C BC #### [facility] [address] [place] [address] Dr. Madhuri Justice LYMPH # 0.9 103/ul Critically low 1.2-3.8 [facility] Comment on above: Performed By: #### C BC #### [facility] [address] [place] [address] Dr. Madhuri Justice Lymphocytes/100 WBC (Bld) 12.2 % Critically low 20.5-60.0 [facility] Comment on above: Performed By: #### C BC #### [facility] [address] [place] [address] Dr. Madhuri Justice MANUAL DIFF REQ NO Normal [facility] Comment on above: Performed By: #### C BC #### [facility] [address] [place] [address] Dr. Madhuri Justice MCH (RBC) [Entitic mass] 24.7 pg Critically low 26.7-34.0 [facility] Comment on above: Performed By: #### C BC #### [facility] [address] [address] [address] Madhuri Justice MCHC (RBC) [Mass/Vol] 29.7 g/dL Critically low 29.9-35.2 [facility] Comment on above: Performed By: #### C BC #### [facility] [address] [place] [address] Dr. Madhuri Justice MCV (RBC) [Entitic vol] 83.0 fL Normal 81.0-99.0 [facility] Comment on above: Performed By: #### C BC #### [facility] [address] [place] [address] Dr. Madhuri Justice MONO # 0.6 103/ul Normal 0.3-0.8 [facility] Comment on above: Performed By: #### C BC #### [facility] [address] [place] [address] Dr. Madhuri Justice Monocytes/100 WBC (Bld) 7.7 % Normal 1.7-12.0 [facility] Comment on above: Performed By: #### C BC #### [facility] [address] [place] [address] Dr. Madhuri Justice NEUT # 5.7 103/ul Normal 1.4-6.5 [facility] Comment on above: Performed By: #### C BC #### [facility] [address] [place] [address] Dr. Madhuri Justice Neutrophils/100 WBC (Bld) 78.6 % Critically high 43.0-75.0 [facility] Comment on above: Performed By: #### C BC #### [facility] [address] [place] [address] Dr. Madhuri Justice Platelet mean volume (Bld) [Entitic vol] 10.4 fL Normal 9.5-13.5 [facility] Comment on above: Performed By: #### C BC #### [facility] [address] [place] [address] Dr. Madhuri Justice PLT 290 103/ul Normal 150-450 [facility] Comment on above: Performed By: #### C BC #### [facility] [address] [place] [address] Dr. Madhuri Justice RBC 4.54 106/ul Normal 4.20-5.40 [facility] Comment on above: Performed By: #### C BC #### [facility] [address] [place] [address] Dr. Madhuri Justice WBC 7.2 103/ul Normal 4.0-11.0 [facility] Comment on above: Performed By: #### C BC #### [facility] [address] [place] [address] Dr. Madhuri Justice ER URINE PROFILEon 2 Bilirubin Ql (U) Negative Normal NEGATIVE [facility] Comment on above: Performed By: #### E RUR #### [facility] [address] [place] [address] Dr. Madhuri Justice Clarity (U) CLEAR Normal CLEAR [facility] Comment on above: Performed By: #### E RUR #### [facility] [address] [place] [address] Dr. Madhuri Justice Color (U) YELLOW Normal YELLOW [facility] Comment on above: Performed By: #### E RUR #### [facility] [address] [place] [address] Dr. Madhuri ABBOTT A micrscopic examina tion will be performed if indicated. Normal [facility] Comment on above: Performed By: #### E RUR #### [facility] [address] [place] [address] Dr. Madhuri Justice Glucose Ql (U) Negative Normal NEGATIVE [facility] Comment on above: Performed By: #### E RUR #### [facility] [address] [place] [address] Dr. Madhuri Justice Hemoglobin Ql (U) Negative Normal NEGATIVE [facility] Comment on above: Performed By: #### E RUR #### [facility] [address] [place] [address] Dr. Madhuri Justice Ketones Ql (U) Negative Normal NEGATIVE [facility] Comment on above: Performed By: #### E RUR #### [facility] [address] [place] [address] Dr. Madhuri Justice LEUKOCYTES Negative Normal NEGATIVE [facility] Comment on above: Performed By: #### E RUR #### [facility] [address] [place] [address] Dr. Madhuri Justice Nitrite Ql (U) Negative Normal NEGATIVE [facility] Comment on above: Performed By: #### E RUR #### [facility] [address] [place] [address] Dr. Madhuri Justice pH (U) 6.0 [pH] Normal 5-9 [facility] Comment on above: Performed By: #### E RUR #### [facility] [address] [place] [address] Dr. Madhuri Justice SPEC GRAVITY 1.020 Normal 1.005-<=1. 025 [facility] Comment on above: Performed By: #### E RUR #### [facility] [address] [place] [address] Dr. Madhuri Justice UA PROTEIN Negative Normal NEGATIVE/ TRACE [facility] Comment on above: Performed By: #### E RUR #### [facility] [address] [place] [address] Dr. Madhuri Justice UR MICRO IND NOT INDICATED Normal [facility] Comment on above: Performed By: #### E RUR #### [facility] [address] [place] [address] Dr. Madhuri Justice Urobilinogen Qn (U) 0.2 {Bud'U}/dL Normal 0.2 - 1. 0 [facility] Comment on above: Performed By: #### E RUR #### [facility] [address] [place] [address] Dr. Madhuri Justice PROF 14(COMP METB)on 022 Albumin [Mass/Vol] 3.3 g/dL Critically low 3.4-5.0 [facility] Comment on above: Performed By: #### L ACT #### [facility] [address] [place] [address] Dr. Madhuri Justice Albumin/Globulin [Mass ratio] 0.8 {ratio} Normal [facility] Comment on above: Performed By: #### L ACT #### [facility] [address] [address] [address] Madhuri Justice ALP [Catalytic activity/Vol] 114 U/L Normal 46-116 [facility] Comment on above: Performed By: #### L ACT #### [facility] [address] [address] [address] Madhuri Justice ALT [Catalytic activity/Vol] 11 U/L Critically low 14-59 [facility] Comment on above: Performed By: #### L ACT #### [facility] [address] [address] [address] Madhuri Justice Anion gap [Moles/Vol] 10.6 mmol/L Normal [facility] Comment on above: Performed By: #### L ACT #### [facility] [address] [address] [address] Madhuri Justice AST [Catalytic activity/Vol] 13 U/L Critically low 15-37 [facility] Comment on above: Performed By: #### L ACT #### [facility] [address] [address] [address] Madhuri Justice Bilirubin [Mass/Vol] 0.5 mg/dL Normal 0.2-1.3 [facility] Comment on above: Performed By: #### L ACT #### [facility] [address] [address] [address] Madhuri Justice Calcium [Mass/Vol] 8.9 mg/dL Normal 8.5-10.1 [facility] Comment on above: Performed By: #### L ACT #### [facility] [address] [address] [address] Madhuri Justice Chloride [Moles/Vol] 103 mmol/L Normal 98-107 [facility] Comment on above: Performed By: #### L ACT #### [facility] [address] [address] [address] Madhuri Justice CO2 [Moles/Vol] 28.2 mmol/L Normal 22.0-30.0 [facility] Comment on above: Performed By: #### L ACT #### [facility] [address] [place] [address] Dr. Madhuri Justice Creatinine [Mass/Vol] 0.93 mg/dL Normal 0.52-1.04 [facility] Comment on above: Performed By: #### L ACT #### [facility] [address] [place] [address] Dr. Madhuri Justice EGFR-AF FIJIAN >60 Normal >=60 [facility] Comment on above: Performed By: #### L ACT #### [facility] [address] [address] [address] Madhuri Justice EGFR-NON AF FIJIAN 58 mL/min/1.73m2 Critically low >=60 [facility] Comment on above: Performed By: #### L ACT #### [facility] [address] [place] [address] Dr. Madhuri Justice Globulin (S) [Mass/Vol] 4.0 g/dL Normal [facility] Comment on above: Performed By: #### L ACT #### [facility] [address] [address] [address] Madhuri Justice Glucose [Mass/Vol] 121 mg/dL Critically high 74-106 [facility] Comment on above: Performed By: #### L ACT #### [facility] [address] [place] [address] Dr. Madhuri Justice Potassium [Moles/Vol] 3.8 mmol/L Normal 3.4-5.0 [facility] Comment on above: Performed By: #### L ACT #### [facility] [address] [address] [address] Madhuri Justice Protein [Mass/Vol] 7.3 g/dL Normal 6.1-8.2 [facility] Comment on above: Performed By: #### L ACT #### [facility] [address] [place] [address] Dr. Madhuri Justice Sodium [Moles/Vol] 138 mmol/L Normal 137-145 [facility] Comment on above: Performed By: #### L ACT #### [facility] [address] [place] [address] Dr. Madhuri Justice Urea nitrogen [Mass/Vol] 14.0 mg/dL Normal 7.0-18.0 [facility] Comment on above: Performed By: #### L ACT #### [facility] [address] [place] [address] Dr. Madhuri Justice Urea nitrogen/Creatinine [Mass ratio] 15.1 mg/mg Normal [facility] Comment on above: Performed By: #### L ACT #### [facility] [address] [place] [address] Dr. Madhuri Justice AMYLASEon 10-26-2021 Amylase [Catalytic activity/Vol] 35 U/L Normal 31-110 [facility] Comment on above: Performed By: #### L ACT #### [facility] [address] [place] [address] Dr. Madhuri Justice CBC W MANUAL DIFFon 10-26-19 22 ANISOCYTOSIS SLIGHT Normal [facility] Comment on above: Performed By: #### C BCMAN #### [facility] [address] [place] [address] Dr. Madhuri Justice ATYPICAL LYMPH # Normal [facility] Comment on above: Performed By: #### C BCMAN #### [facility] [address] [place] [address] Dr. Madhuri Justice ATYPICAL LYMPH % Normal [facility] Comment on above: Performed By: #### C BCMAN #### [facility] [address] [place] [address] Dr. Madhuri Justice BAND # 0.2 103/ul Normal 0.0-0.3 [facility] Comment on above: Performed By: #### C BCMAN #### [facility] [address] [place] [address] Dr. Madhuri Justice BAND % 2 % Normal 0-5 [facility] Comment on above: Performed By: #### C BCMAN #### [facility] [address] [place] [address] Dr. Madhuri Justice BASOM # 0.00 103/ul Normal 0.00-0.10 [facility] Comment on above: Performed By: #### C BCMAN #### [facility] [address] [place] [address] Dr. Madhuri Justice BASOM % 0.0 % Critically low 0.2-2.0 [facility] Comment on above: Performed By: #### C BCMAN #### [facility] [address] [place] [address] Dr. Madhuri Justice BLAST # Normal [facility] Comment on above: Performed By: #### C BCMAN #### [facility] [address] [place] [address] Dr. Madhuri Justice BLAST % Normal [facility] Comment on above: Performed By: #### C BCMAN #### [facility] [address] [place] [address] Dr. Madhuri Justice CORRECTED WBC Normal 4.0-11.0 [facility] Comment on above: Performed By: #### C BCMAN #### [facility] [address] [place] [address] Dr. Madhuri Justice EOS # 0.09 103/ul Normal 0.00-0.70 [facility] Comment on above: Performed By: #### C BCILIANA #### [facility] [address] [place] [address] Dr. Madhuri Justice EOS% 1.0 % Normal 0.9-7.0 [facility] Comment on above: Performed By: #### C BCMAN #### [facility] [address] [place] [address] Dr. Madhuri Justice HCT 37.3 % Normal 36.0-48.0 [facility] Comment on above: Performed By: #### C BCMAN #### [facility] [address] [place] [address] Dr. Madhuri Justice HGB 11.0 g/dl Critically low 12.0-16.0 [facility] Comment on above: Performed By: #### C BCMAN #### [facility] [address] [place] [address] Dr. Madhuri Justice HYPOCHROMASIA SLIGHT Normal [facility] Comment on above: Performed By: #### C BCMAN #### [facility] [address] [place] [address] Dr. Madhuri Justice LYMPHM # 0.86 103/ul Critically low 1.20-3.80 [facility] Comment on above: Performed By: #### C DANNY #### [facility] [address] [address] [address] Madhuri Justice LYMPHM% 10.0 % Critically low 20.5-60.0 [facility] Comment on above: Performed By: #### C DANNY #### [facility] [address] [address] [address] Madhuri Justice MCH 23.9 pg Critically low 26.7-34.0 [facility] Comment on above: Performed By: #### C DANNY #### [facility] [address] [place] [address] Dr. Madhuri Justice MCHC 29.5 g/dl Critically low 29.9-35.2 [facility] Comment on above: Performed By: #### C DANNY #### [facility] [address] [place] [address] Dr. Madhuri Justice MCV 81.1 fL Normal 81.0-99.0 [facility] Comment on above: Performed By: #### C DANNY #### [facility] [address] [place] [address] Dr. Madhuri Justice METAMYELOCYTE # Normal [facility] Comment on above: Performed By: #### C DANYN #### [facility] [address] [place] [address] Dr. Madhuri Justice METAMYELOCYTE % Normal [facility] Comment on above: Performed By: #### C DANNY #### [facility] [address] [place] [address] Dr. Madhuri Justice MONOM# 0.52 103/ul Normal 0.30-0.80 [facility] Comment on above: Performed By: #### C DANNY #### [facility] [address] [place] [address] Dr. Madhuri Justice MONOM% 6.0 % Normal 1.7-12.0 [facility] Comment on above: Performed By: #### C DANNY #### [facility] [address] [place] [address] Dr. Madhuri Justice MPV 9.8 fL Normal 9.5-13.5 [facility] Comment on above: Performed By: #### C DANNY #### [facility] [address] [place] [address] Dr. Madhuri Justice MYELOCYTE # Normal [facility] Comment on above: Performed By: #### C DANNY #### [facility] [address] [place] [address] Dr. Madhuri Justice MYELOCYTE % Normal [facility] Comment on above: Performed By: #### C DANNY #### [facility] [address] [place] [address] Dr. Madhuri Justice NRBC Normal [facility] Comment on above: Performed By: #### C DANNY #### [facility] [address] [place] [address] Dr. Madhuri Justice PLT 318 103/ul Normal 150-450 [facility] Comment on above: Performed By: #### C DANNY #### [facility] [address] [place] [address] Dr. Madhuri Justice RBC 4.60 106/ul Normal 4.20-5.40 [facility] Comment on above: Performed By: #### C DANNY #### [facility] [address] [place] [address] Dr. Madhuri Justice RDW 16.4 % Critically high 11.0-15.0 [facility] Comment on above: Performed By: #### C DANNY #### [facility] [address] [place] [address] Dr. Madhuri Justice SEG # 6.97 103/ul Critically high 1.40-6.50 [facility] Comment on above: Performed By: #### C DANNY #### [facility] [address] [place] [address] Dr. Madhuri Justice SEG % 81.0 % Critically high 43.0-75.0 [facility] Comment on above: Performed By: #### C DANNY #### [facility] [address] [place], [place] [address] Dr. Madhuri Justice WBC 8.6 103/ul Normal 4.0-11.0 [facility] Comment on above: Performed By: #### C DANNY #### [facility] [id number] Madhuri Justice CT ABD/PELV W CONon [...] by: CLEMENTINA GANDHI Date: 2021-10-26 18:59 Normal [facility] LACTATE/LACTIC ACIDon 2021 Lactate [Moles/Vol] 0.6 mmol/L Critically low 0.7-2.0 [facility] Comment on above: Performed By: #### L ACT #### [facility] [address] [place] [address] Dr. Madhuri Justice LIPASEon 10-26-2021 Lipase [Catalytic activity/Vol] 70.0 U/L Normal 23.0-300.0 [facility] Comment on above: Performed By: #### L ACT #### [facility] [address] [place] [address] Dr. Madhuri Justice PROF 14(COMP METB)on 022 Albumin [Mass/Vol] 3.5 g/dL Normal 3.5-5.0 [facility] Comment on above: Performed By: #### L ACT #### [facility] [address] [place] [address] Dr. Madhuri Justice Albumin/Globulin [Mass ratio] 0.9 {ratio} Normal [facility] Comment on above: Performed By: #### L ACT #### [facility] [address] [place] [address] Dr. Madhuri Justice ALP [Catalytic activity/Vol] 119 U/L Normal 38-126 [facility] Comment on above: Performed By: #### L ACT #### [facility] [address] [place] [address] Dr. Madhuri Justice ALT [Catalytic activity/Vol] 13 U/L Normal 9-52 [facility] Comment on above: Performed By: #### L ACT #### [facility] [address] [place] [address] Dr. Madhuri Justice Anion gap [Moles/Vol] 10.7 mmol/L Normal [facility] Comment on above: Performed By: #### L ACT #### [facility] [address] [place] [address] Dr. Madhuri Justice AST [Catalytic activity/Vol] 15 U/L Normal 14-36 [facility] Comment on above: Performed By: #### L ACT #### [facility] [address] [place] [address] Dr. Madhuri Justice Bilirubin [Mass/Vol] 0.5 mg/dL Normal 0.2-1.3 [facility] Comment on above: Performed By: #### L ACT #### [facility] [address] [place] [address] Dr. Madhuri Justice Calcium [Mass/Vol] 9.5 mg/dL Normal 8.4-10.2 [facility] Comment on above: Performed By: #### L ACT #### [facility] [address] [place] [address] Dr. Madhuri Justice Chloride [Moles/Vol] 104 mmol/L Normal 98-107 [facility] Comment on above: Performed By: #### L ACT #### [facility] [address] [place] [address] Dr. Madhuri Justice CO2 [Moles/Vol] 28.0 mmol/L Normal 22.0-30.0 [facility] Comment on above: Performed By: #### L ACT #### [facility] [address] [place] [address] Dr. Madhuri Justice Creatinine [Mass/Vol] 0.85 mg/dL Normal 0.52-1.04 [facility] Comment on above: Performed By: #### L ACT #### [facility] [address] [place] [address] Dr. Madhuri Justice EGFR-AF FIJIAN >60 Normal >=60 [facility] Comment on above: Performed By: #### L ACT #### [facility] [address] [place] [address] Dr. Madhuri Justice EGFR-NON AF FIJIAN >60 Normal >=60 [facility] Comment on above: Performed By: #### L ACT #### [facility] [address] [place] [address] Dr. Madhuri Justice Globulin (S) [Mass/Vol] 4.1 g/dL Normal [facility] Comment on above: Performed By: #### L ACT #### [facility] [address] [place] [address] Dr. Madhuri Justice Glucose [Mass/Vol] 116 mg/dL Critically high 74-106 T [facility] Comment on above: Performed By: #### L ACT #### [facility] [address] [place] [address] Dr. Madhuri Justice Potassium [Moles/Vol] 3.7 mmol/L Normal 3.4-5.0 [facility] Comment on above: Performed By: #### L ACT #### [facility] [address] [address] [address] Madhuri Justice Protein [Mass/Vol] 7.6 g/dL Normal 6.1-8.2 [facility] Comment on above: Performed By: #### L ACT #### [facility] [address] [address] [address] Madhuri Justice Sodium [Moles/Vol] 139 mmol/L Normal 137-145 [facility] Comment on above: Performed By: #### L ACT #### [facility] [address] [address] [address] Madhuri Justice Urea nitrogen [Mass/Vol] 16.0 mg/dL Normal 7.0-17.0 [facility] Comment on above: Performed By: #### L ACT #### [facility] [address] [address] [address] Madhuri Justice Urea nitrogen/Creatinine [Mass ratio] 18.8 mg/mg Normal [facility] Comment on above: Performed By: #### L ACT #### [facility] [address] [address] [address] Madhuri Justice CBCon 02-08-2020 Erythrocyte distribution width (RBC) [Ratio] 16.9 % High 11.5 - 14.5 [facility] Comment on above: Performed By: #### C BC #### [address] [address] Hematocrit (Bld) [Volume fraction] 40.7 % Normal 36.0 - 46.0 [facility] Comment on above: Performed By: #### C BC #### [address] [address] Hemoglobin (Bld) [Mass/Vol] 11.8 g/dL Low 12.0 - 16.0 [facility] Comment on above: Performed By: #### C BC #### [address] [address] MCHC (RBC) [Mass/Vol] 29.0 g/dL Low 32.0 - 36.0 [facility] Comment on above: Performed By: #### C BC #### [address] [address] MCV (RBC) [Entitic vol] 81 fL Normal 80 - 100 [facility] Comment on above: Performed By: #### C BC #### [address] [address] Platelets (Bld) [#/Vol] 296 10*3/uL Normal 150 - 450 [facility] Comment on above: Performed By: #### C BC #### [address] [address] RBC (Bld) [#/Vol] 5.01 x10E12/L Normal 4.00 - 5.20 [facility] Comment on above: Performed By: #### C BC #### [address] [address] WBC (Bld) [#/Vol] 7.0 10*3/uL Normal 4.4 - 11.3 [facility] Comment on above: Performed By: #### C BC #### [address] [address] CREATININEon 02-08-2020 Creatinine [Mass/Vol] mg/dL Normal >60 [facility] Comment on above: Result Comment: CALC ULATIONS OF ESTIMATED GFR ARE PERFORMED USING THE MDRD STUDY EQUATION FOR THE IDMS-TRACEABLE CREATININE METHODS. CLIN CHEM 2007;53:766-72 Performed By: #### C REAT #### [address] [address] Creatinine [Mass/Vol] 0.85 mg/dL Normal 0.50 - 1.05 [facility] Comment on above: Performed By: #### C REAT #### [address] [address] ELECTROLYTE PANELon 02-08-20 20 Anion gap [Moles/Vol] 12 mmol/L Normal 10 - 20 [facility] Comment on above: Performed By: #### E LECT #### [address] [address] Chloride [Moles/Vol] 104 mmol/L Normal 98 - 107 [facility] Comment on above: Performed By: #### E LECT #### [address] [address] HCO3 (Bld) [Moles/Vol] 29 mmol/L Normal 21 - 32 [facility] Comment on above: Performed By: #### E LECT #### [address] [address] Potassium [Moles/Vol] 3.9 mmol/L Normal 3.5 - 5.3 [facility] Comment on above: Performed By: #### E LECT #### [address] [address] Sodium [Moles/Vol] 141 mmol/L Normal 136 - 145 [facility] Comment on above: Performed By: #### E LECT #### [address] [address] UREA NITROGENon 02-08-2020 Urea nitrogen [Mass/Vol] 18 mg/dL Normal 6 - 23 [facility] Comment on above: Performed By: #### U GUSTAVO #### [address] [address] Creatinineon 11-24-2018 Creatinine mass conc 0.83 mg/dL Normal 0.50-1.05 [facility] Comment on above: Performed By: #### 1 [id number] #### [facility] [address] [place] [address] GFR/1.73 sq M.predicted MDRD vol rate/area mL/min/{1.73_m2} Normal [facility] Comment on above: Result Comment: Inte rpretation for Chronic Kidney Disease: Stages 1&2 >60 Healthy or potential kidney damage. Mild decrease of GFR. Stage 3 30-59 Moderate decrease of GFR. Stage 4 15-29 Severe decrease of GFR. Stage 5 <15 Kidney failure or on dialysis. Performed By: #### 1 [id number] #### [facility] [address] [place] [address] Electrolyte Panelon 11-24-19 19 Anion gap molar conc 13 mmol/L Normal 10-20 [facility] Comment on above: Performed By: #### 1 [id number] #### [facility] [address] [place] [address] Chloride molar conc 102 mmol/L Normal 98-107 [facility] Comment on above: Performed By: #### 1 [id number] #### [facility] [address] [place] [address] HCO3 molar conc (Bld) 28 mmol/L Normal 21-32 [facility] Comment on above: Performed By: #### 1 [id number] #### [facility] [address] [place] [address] Potassium molar conc 4.0 mmol/L Normal 3.5-5.1 [facility] Comment on above: Performed By: #### 1 [id number] #### [facility] [address] [place] [address] Sodium molar conc 139 mmol/L Normal 136-145 [facility] Comment on above: Performed By: #### 1 [id number] #### [facility] [address] [place] [address] Urea Nitrogenon 11-24-2018 Urea nitrogen mass conc 17 mg/dL Normal 6-23 [facility] Comment on above: Performed By: #### 1 [id number] #### [facility] [address] [place] [address] Creatinineon 11-18-2018 Creatinine mass conc 0.84 mg/dL Normal 0.50-1.05 [facility] Comment on above: Performed By: #### 1 [id number] #### [facility] [address] [place] [address] GFR/1.73 sq M.predicted MDRD vol rate/area mL/min/{1.73_m2} Normal [facility] Comment on above: Result Comment: Inte rpretation for Chronic Kidney Disease: Stages 1&2 >60 Healthy or potential kidney damage. Mild decrease of GFR. Stage 3 30-59 Moderate decrease of GFR. Stage 4 15-29 Severe decrease of GFR. Stage 5 <15 Kidney failure or on dialysis. Performed By: #### 1 [id number] #### [facility] [address] [place] [address] Electrolyte Panelon 11-18-19 19 Anion gap molar conc 10 mmol/L Normal 10-20 [facility] Comment on above: Performed By: #### 1 [id number] #### [facility] [address] [place] [address] Chloride molar conc 104 mmol/L Normal 98-107 [facility] Comment on above: Performed By: #### 1 [id number] #### [facility] [address] [place] [address] HCO3 molar conc (Bld) 30 mmol/L Normal 21-32 [facility] Comment on above: Performed By: #### 1 [id number] #### [facility] [address] [place] [address] Potassium molar conc 4.0 mmol/L Normal 3.5-5.1 [facility] Comment on above: Performed By: #### 1 [id number] #### [facility] [address] [place] [address] Sodium molar conc 140 mmol/L Normal 136-145 [facility] Comment on above: Performed By: #### 1 [id number] #### [facility] [address] [place] [address] Urea Nitrogenon 11-18-2018 Urea nitrogen mass conc 15 mg/dL Normal 6-23 [facility] Comment on above: Performed By: #### 1 [id number] #### [facility] [address] [place] [address] CBCon 2018 Erythrocyte distribution width Ratio (RBC) 16.3 % High 12.0-15.4 [facility] Comment on above: Performed By: #### 2 [id number] #### [facility] [address] [place] [address] Hematocrit Volume Fraction (Bld) 37.4 % Normal 36.5-46.6 [facility] Comment on above: Performed By: #### 2 [id number] #### [facility] [address] [place] [address] Hemoglobin mass conc (Bld) 11.0 g/dL Low 11.8-15.3 [facility] Comment on above: Performed By: #### 2 [id number] #### [facility] [address] [place] [address] MCH Entitic mass (RBC) 24.3 pg Low 27.5-33.0 [facility] Comment on above: Performed By: #### 2 [id number] #### [facility] [address] [place] [address] MCHC mass conc (RBC) 29.4 g/dL Low 30.1-35.0 [facility] Comment on above: Performed By: #### 2 [id number] #### [facility] [address] [place] [address] MCV Entitic volume (RBC) 82.6 fL Low 85.4-100.0 [facility] Comment on above: Performed By: #### 2 [id number] #### [facility] [address] [place] [address] NRBC Absolute 0.00 10*3/uL Normal [facility] Comment on above: Performed By: #### 2 [id number] #### [facility] [address] [place] [address] NRBC Automated 0.0 /100{WBCs} Normal [facility] Comment on above: Performed By: #### 2 [id number] #### [facility] [address] [place] [address] Platelet mean volume Entitic volume (Bld) 10.8 fL Normal 9.9-12.1 [facility] Comment on above: Performed By: #### 2 [id number] #### [facility] [address] [place] [address] Platelets #/vol (Bld) 314 10*3/uL Normal 155-404 [facility] Comment on above: Performed By: #### 2 [id number] #### [facility] [address] [place] [address] RBC #/vol (Bld) 4.53 10*6/uL Normal 3.85-5.10 [facility] Comment on above: Performed By: #### 2 [id number] #### [facility] [address] [place] [address] RDW SD 49.1 fL High 39.3-48.6 [facility] Comment on above: Performed By: #### 2 [id number] #### [facility] [address] [place] [address] WBC #/vol (Bld) 7.9 10*3/uL Normal 4.4-9.9 [facility] Comment on above: Performed By: #### 2 [id number] #### [facility] [address] [place] [address] Creatinineon 2018 Creatinine mass conc 0.85 mg/dL Normal 0.50-1.05 [facility] Comment on above: Performed By: #### 1 [id number] #### [facility] [address] [place] [address] GFR/1.73 sq M.predicted MDRD vol rate/area mL/min/{1.73_m2} Normal [facility] Comment on above: Result Comment: Inte rpretation for Chronic Kidney Disease: Stages 1&2 >60 Healthy or potential kidney damage. Mild decrease of GFR. Stage 3 30-59 Moderate decrease of GFR. Stage 4 15-29 Severe decrease of GFR. Stage 5 <15 Kidney failure or on dialysis. Performed By: #### 1 [id number] #### [facility] [address] [place] [address] Electrolyte Panelon 05-25-20 18 Anion gap molar conc 13 mmol/L Normal 10-20 [facility] Comment on above: Performed By: #### 1 [id number] #### [facility] [address] [place] [address] Chloride molar conc 102 mmol/L Normal 98-107 [facility] Comment on above: Performed By: #### 1 [id number] #### [facility] [address] [place] [address] HCO3 molar conc (Bld) 28 mmol/L Normal 21-32 [facility] Comment on above: Performed By: #### 1 [id number] #### [facility] [address] [place] [address] Potassium molar conc 3.9 mmol/L Normal 3.5-5.1 [facility] Comment on above: Performed By: #### 1 [id number] #### [facility] [address] [place] [address] Sodium molar conc 139 mmol/L Normal 136-145 [facility] Comment on above: Performed By: #### 1 [id number] #### [facility] [address] [place] [address] Urea Nitrogenon 2018 Urea nitrogen mass conc 15 mg/dL Normal 6-23 [facility] Comment on above: Performed By: #### 1 [id number] #### [facility] [address] [place] [address] Vital Signs Date Time Vital Sign Value Performing Clinician Facility 05-15-2025 12:57-0400 Body height 160 cm Porfirio Rubio DPM Work Phone: [facility] 05-15-2025 12:57-0400 Body mass index (BMI) [Ratio] 32.95 kg/m2 Porfirio Rubio DPM Work Phone: [facility] 05-15-2025 12:57-0400 Body weight 84.37 kg Porfirio Rubio DPM Work Phone: [facility] 04-27-2025 17:18-0400 Body height 160 cm Raghav Mitchell DO Work Phone: [facility] 04-27-2025 17:18-0400 Body mass index (BMI) [Ratio] 32.95 kg/m2 Raghav Mitchell DO Work Phone: [facility] 04-27-2025 17:18-0400 Body weight 84.37 kg Raghav Mitchell DO Work Phone: [facility] 04-27-2025 17:18-0400 Diastolic blood pressure 78 mm[Hg] Raghav Mitchell DO Work Phone: [facility] 04-27-2025 17:18-0400 Heart rate 74 /min Raghav Stephen DO Work Phone: [facility] 04-27-2025 17:18-0400 SaO2% (BldA) [Mass fraction] 97 % Raghav Yinger DO Work Phone: [facility] 04-27-2025 17:18-0400 Systolic blood pressure 120 mm[Hg] Raghav Yinger DO Work Phone: [facility] 04-16-2025 10:46-0400 Body temperature 98.3 [degF] Raghav Mitchell DO Work Phone: [facility] 04-16-2025 10:46-0400 Diastolic blood pressure 73 mm[Hg] Raghav Mitchell DO Work Phone: [facility] 04-16-2025 10:46-0400 Heart rate 55 /min Raghav Mitchell DO Work Phone: [facility] 04-16-2025 10:46-0400 Respiratory rate 20 /min Raghav Mitchell DO Work Phone: [facility] 04-16-2025 10:46-0400 SaO2% (BldA) [Mass fraction] 95 % Raghav Mitchell DO Work Phone: [facility] 04-16-2025 10:46-0400 Systolic blood pressure 115 mm[Hg] Raghav Mitchell DO Work Phone: [facility] 04-16-2025 03:19-0400 Body weight 84.3 kg Raghav Mitchell DO Work Phone: [facility] 04-11-2025 12:51-0400 Body height 160.02 cm Raghav Mitchell DO Work Phone: [facility] 04-05-2025 16:00-0400 Body temperature 97.6 [degF] Raghav Mitchell DO Work Phone: [facility] 04-05-2025 16:00-0400 Diastolic blood pressure 81 mm[Hg] Raghav Mitchell DO Work Phone: [facility] 04-05-2025 16:00-0400 Heart rate 53 /min Raghav Stephen DO Work Phone: [facility] 04-05-2025 16:00-0400 Respiratory rate 18 /min Raghav Yinger DO Work Phone: [facility] 04-05-2025 16:00-0400 SaO2% (BldA) [Mass fraction] 95 % Raghav Yinger DO Work Phone: [facility] 04-05-2025 16:00-0400 Systolic blood pressure 147 mm[Hg] Raghav Yinger DO Work Phone: [phone] [address] 04-05-2025 15:09-0400 Body weight 89.2 kg Raghav Yinger DO Work Phone: [phone] [place] [address] 04-04-2025 12:52-0400 Body height 160.02 cm Raghav Yinger DO Work Phone: [facility] 04-04-2025 00:15-0400 Inhaled oxygen flow rate 1.5 L/min Raghav Yinger DO Work Phone: [facility] 04-01-2025 10:12-0400 Body temperature 97.8 [degF] Raghav Yinger DO Work Phone: [facility] 04-01-2025 10:12-0400 Diastolic blood pressure 66 mm[Hg] Raghav Yinger DO Work Phone: [facility] 04-01-2025 10:12-0400 Heart rate 57 /min Raghav Yinger DO Work Phone: [facility] 04-01-2025 10:12-0400 Respiratory rate 20 /min Raghav Yinger DO Work Phone: [facility] 04-01-2025 10:12-0400 SaO2% (BldA) [Mass fraction] 97 % Raghav Yinger DO Work Phone: [facility] 04-01-2025 10:12-0400 Systolic blood pressure 156 mm[Hg] Raghav Yinger DO Work Phone: [facility] 04-01-2025 01:54-0400 Body height 160.02 cm Raghav Mitchell DO Work Phone: [facility] 04-01-2025 01:54-0400 Body weight 86.9 kg Raghav Mitchell DO Work Phone: [facility] 03-27-2025 15:09-0400 Diastolic blood pressure 52 mm[Hg] Charmaine Pinedo MD Work Phone: [facility] 03-27-2025 15:09-0400 Systolic blood pressure 108 mm[Hg] Charmaine Pinedo MD Work Phone: [facility] 03-27-2025 15:00-0400 Body height 160 cm Charmaine Pinedo MD Work Phone: [facility] 03-27-2025 15:00-0400 Body mass index (BMI) [Ratio] 33.48 kg/m2 Charmaine Pinedo MD Work Phone: [facility] 03-27-2025 15:00-0400 Body weight 85.73 kg Charmaine Pinedo MD Work Phone: [facility] 03-27-2025 15:00-0400 Heart rate 54 /min Charmaine Pinedo MD Work Phone: [facility] 02-08-2025 15:00-0400 Body height 160 cm Christine Rosenthal [employer] Work Phone: [facility] 02-08-2025 15:00-0400 Body mass index (BMI) [Ratio] 33.48 kg/m2 Christine Rosenthal [employer] Work Phone: [facility] 02-08-2025 15:00-0400 Body temperature 96.21 [degF] Christine Rosenthal [employer] Work Phone: [facility] 02-08-2025 15:00-0400 Body weight 85.73 kg Christine Rosenthal [employer] Work Phone: [facility] 02-08-2025 15:00-0400 Diastolic blood pressure 70 mm[Hg] Christine Rosenthal [employer] Work Phone: [facility] 02-08-2025 15:00-0400 Heart rate 80 /min Christine Sahareuben [employer] Work Phone: [facility] 02-08-2025 15:00-0400 SaO2% (BldA) [Mass fraction] 97 % Christine Rosenthal [employer] Work Phone: [facility] 02-08-2025 15:00-0400 Systolic blood pressure 120 mm[Hg] Christine Sahareuben [employer] Work Phone: [facility] 02-03-2025 10:27-0400 Body height 160 cm Porfirio Rubio DPM Work Phone: [facility] 02-03-2025 10:27-0400 Body mass index (BMI) [Ratio] 32.59 kg/m2 Porfirio Rubio DPM Work Phone: [facility] 02-03-2025 10:27-0400 Body weight 83.46 kg Porfirio Joanne DPM Work Phone: [facility] 12-02-2024 15:12-0500 Body height 160 cm Raghav Mitchell DO Work Phone: [facility] 12-02-2024 15:12-0500 Body mass index (BMI) [Ratio] 32.59 kg/m2 Raghav Mitchell DO Work Phone: [facility] 12-02-2024 15:12-0500 Body weight 83.46 kg Raghav Mitchell DO Work Phone: [facility] 12-02-2024 15:12-0500 Diastolic blood pressure 64 mm[Hg] Raghav Mitchell DO Work Phone: [facility] 12-02-2024 15:12-0500 Heart rate 79 /min Raghav Mitchell DO Work Phone: [facility] 12-02-2024 15:12-0500 SaO2% (BldA) [Mass fraction] 98 % Raghav Mitchell DO Work Phone: [facility] 12-02-2024 15:12-0500 Systolic blood pressure 118 mm[Hg] Raghav Mitchell DO Work Phone: [facility] 11-25-2024 14:53-0500 Body height 160 cm Charmaine Pinedo MD Work Phone: [facility] 11-25-2024 14:53-0500 Body mass index (BMI) [Ratio] 32.59 kg/m2 Charmaine Pinedo MD Work Phone: [facility] 11-25-2024 14:53-0500 Body weight 83.46 kg Charmaine Pinedo MD Work Phone: [facility] 11-25-2024 14:53-0500 Diastolic blood pressure 62 mm[Hg] Charmaine Pinedo MD Work Phone: [facility] 11-25-2024 14:53-0500 Heart rate 78 /min Charmaine Pinedo MD Work Phone: [facility] 11-25-2024 14:53-0500 Systolic blood pressure 130 mm[Hg] Charmaine Pinedo MD Work Phone: [facility] 11-02-2024 10:47-0500 Body height 160 cm Porfirio Rubio DPM Work Phone: [facility] 11-02-2024 10:47-0500 Body mass index (BMI) [Ratio] 31.89 kg/m2 Porfirio Rubio DPM Work Phone: [facility] 11-02-2024 10:47-0500 Body weight 81.65 kg Porfirio Rubio DPM Work Phone: [facility] 09-27-2024 11:25-0500 Body height 160 cm Raghav Mitchell DO Work Phone: [facility] 09-27-2024 11:25-0500 Body mass index (BMI) [Ratio] 35.25 kg/m2 Raghav Mitchell DO Work Phone: [facility] 09-27-2024 11:25-0500 Body temperature 97.11 [degF] Raghav Mitchell DO Work Phone: [facility] 09-27-2024 11:25-0500 Body weight 90.27 kg Raghav Mitchell DO Work Phone: [facility] 09-27-2024 11:25-0500 Diastolic blood pressure 68 mm[Hg] Raghav Mitchell DO Work Phone: [facility] 09-27-2024 11:25-0500 Heart rate 64 /min Raghav Mitchell DO Work Phone: [facility] 09-27-2024 11:25-0500 SaO2% (BldA) [Mass fraction] 99 % Raghav Mitchell DO Work Phone: [facility] 09-27-2024 11:25-0500 Systolic blood pressure 136 mm[Hg] Raghav Mitchell DO Work Phone: [facility] 09-26-2024 14:45-0500 Body height 160 cm Chloe Mercado PA Work Phone: [facility] 09-26-2024 14:45-0500 Body mass index (BMI) [Ratio] 32.77 kg/m2 Chloe Mercado PA Work Phone: [facility] 09-26-2024 14:45-0500 Body weight 83.92 kg Chloe Mercado PA Work Phone: [facility] 07-27-2024 13:29-0400 Body height 160 cm Porfirio Rubio DPM Work Phone: [facility] 07-27-2024 13:29-0400 Body mass index (BMI) [Ratio] 34.72 kg/m2 Porfirio Rubio DPM Work Phone: [facility] 07-27-2024 13:29-0400 Body weight 88.91 kg Porfirio Rubio DPM Work Phone: [facility] 05-12-2024 16:40-0400 Body height 160 cm Raghav Stephen DO Work Phone: [facility] 05-12-2024 16:40-0400 Body mass index (BMI) [Ratio] 34.72 kg/m2 Raghav Mitchell DO Work Phone: [facility] 05-12-2024 16:40-0400 Body temperature 98.01 [degF] Raghav Stephen DO Work Phone: [facility] 05-12-2024 16:40-0400 Body weight 88.91 kg Raghav Stephen DO Work Phone: [facility] 05-12-2024 16:40-0400 Diastolic blood pressure 76 mm[Hg] Raghav Stephen DO Work Phone: [facility] 05-12-2024 16:40-0400 Heart rate 68 /min Raghav Stephen DO Work Phone: [facility] 05-12-2024 16:40-0400 Systolic blood pressure 132 mm[Hg] Raghav Stephen DO Work Phone: [facility] 04-21-2024 13:40-0400 Body height 160.02 cm DO Raghav Stephen Work Phone: 4(820)838-363407 [address] 04-21-2024 13:40-0400 Body temperature 97.7 [degF] DO Raghav Stephen Work Phone: 2(165)829-163007 [address] 04-21-2024 13:40-0400 Body weight 81.64 kg DO Raghav Stephen Work Phone: 4(402)580-284818 [place] [address] 04-21-2024 13:40-0400 Diastolic blood pressure 81 mm[Hg] DO Raghav Yinger Work Phone: 3(046)669-100618 [place] [address] 04-21-2024 13:40-0400 Heart rate 69 /min DO Raghav Stephen Work Phone: 4(176)138-109555 [place] [address] 04-21-2024 13:40-0400 Respiratory rate 20 /min DO Raghav Yinger Work Phone: 3(978)230-106755 [place] [address] 04-21-2024 13:40-0400 SaO2% (BldA) [Mass fraction] 98 % DO Raghav Stephen Work Phone: [facility] 04-21-2024 13:40-0400 Systolic blood pressure 178 mm[Hg] DO Raghav Stephen Work Phone: 8(051)[phone] [place] [address] 04-13-2024 11:15-0400 Body height 160 cm Charmaine Pinedo MD Work Phone: [facility] 04-13-2024 11:15-0400 Body mass index (BMI) [Ratio] 34.86 kg/m2 Charmaine Pinedo MD Work Phone: [facility] 04-13-2024 11:15-0400 Body weight 89.27 kg Charmaine Pinedo MD Work Phone: [facility] 04-13-2024 11:15-0400 Diastolic blood pressure 70 mm[Hg] Charmaine Pinedo MD Work Phone: [facility] 04-13-2024 11:15-0400 Heart rate 65 /min Charmaine Pinedo MD Work Phone: [facility] 04-13-2024 11:15-0400 Systolic blood pressure 118 mm[Hg] Charmaine Pinedo MD Work Phone: [facility] 09-18-2023 10:31-0500 Body height 160 cm Charmaine Pinedo MD Work Phone: [facility] 09-18-2023 10:31-0500 Body mass index (BMI) [Ratio] 36.31 kg/m2 Charmaine Pinedo MD Work Phone: [facility] 09-18-2023 10:31-0500 Body weight 92.99 kg Charmaine Pinedo MD Work Phone: [facility] 09-18-2023 10:31-0500 Diastolic blood pressure 72 mm[Hg] Charmaine Pinedo MD Work Phone: [facility] 09-18-2023 10:31-0500 Heart rate 70 /min Charmaine Pinedo MD Work Phone: [facility] 09-18-2023 10:31-0500 Systolic blood pressure 122 mm[Hg] Charmaine Pinedo MD Work Phone: [facility] 09-01-2023 10:54-0500 Diastolic blood pressure 65 mm[Hg] DO Raghav Mitchell Work Phone: [facility] 09-01-2023 10:54-0500 Heart rate 65 /min DO Raghav Mitchell Work Phone: [facility] 09-01-2023 10:54-0500 Respiratory rate 18 /min DO Raghav Mitchell Work Phone: [facility] 09-01-2023 10:54-0500 SaO2% (BldA) [Mass fraction] 95 % DO Raghav Mitchell Work Phone: [facility] 09-01-2023 10:54-0500 Systolic blood pressure 149 mm[Hg] DO Raghav Mitchell Work Phone: [facility] 09-01-2023 09:33-0500 Body height 160.02 cm DO Raghav Mitchell Work Phone: [facility] 09-01-2023 09:33-0500 Body weight 92 kg DO Raghav Mitchell Work Phone: [facility] 09-01-2023 09:31-0500 Body temperature 97.4 [degF] DO Raghav Mitchell Work Phone: [facility] 08-18-2023 08:38-0500 Diastolic blood pressure 82 mm[Hg] Charmaine Pinedo MD Work Phone: [facility] 08-18-2023 08:38-0500 Systolic blood pressure 138 mm[Hg] Charmaine Pinedo MD Work Phone: [facility] 08-18-2023 08:32-0500 Body height 160 cm Charmaine Pinedo MD Work Phone: [facility] 08-18-2023 08:32-0500 Body mass index (BMI) [Ratio] 36.31 kg/m2 Charmaine Pinedo MD Work Phone: [facility] 08-18-2023 08:32-0500 Body weight 92.99 kg Charmaine Pinedo MD Work Phone: [facility] 08-18-2023 08:32-0500 Heart rate 60 /min Charmaine Pinedo MD Work Phone: [facility] 07-27-2023 16:00-0400 Diastolic blood pressure 72 mm[Hg] DO Raghav Mitchell Work Phone: [facility] 07-27-2023 16:00-0400 Heart rate 77 /min DO Raghav Mitchell Work Phone: [facility] 07-27-2023 16:00-0400 Respiratory rate 23 /min DO Raghav Mitchell Work Phone: [facility] 07-27-2023 16:00-0400 SaO2% (BldA) [Mass fraction] 97 % DO Raghav Mitchell Work Phone: [facility] 07-27-2023 16:00-0400 Systolic blood pressure 160 mm[Hg] DO Raghav Mitchell Work Phone: [facility] 07-27-2023 12:05-0400 Body height 160.02 cm DO Raghav Mitchell Work Phone: [facility] 07-27-2023 12:05-0400 Body temperature 97.5 [degF] DO Raghav Mitchell Work Phone: [facility] 07-27-2023 12:05-0400 Body weight 94.5 kg DO Raghav Mitchell Work Phone: [facility] 04-16-2023 10:48-0400 Body height 162.56 cm Raghav Mtichell Work Phone: [facility] DO Work Phone: 04-16-2023 10:48-0400 Body mass index (BMI) [Ratio] 34.87 kg/m2 Raghav Mitchell Work Phone: [facility] DO Work Phone: 04-16-2023 10:48-0400 Body surface area Derived from formula 1.97 m2 Raghav Mitchell Work Phone: [facility] DO Work Phone: 04-16-2023 10:48-0400 Body weight 92.14 kg Raghav Irvin Stephen Work Phone: [facility] DO Work Phone: 04-16-2023 10:48-0400 Diastolic blood pressure 78 mm[Hg] Raghav Mitchell Work Phone: [facility] DO Work Phone: 04-16-2023 10:48-0400 Heart rate 64 /min Raghav Mitchell Work Phone: [facility] DO Work Phone: 04-16-2023 10:48-0400 Systolic blood pressure 138 mm[Hg] Raghav Mitchell Work Phone: [facility] DO Work Phone: 03-19-2023 22:00-0400 Diastolic blood pressure 67 mm[Hg] DO Raghav Stephen Work Phone: [facility] 03-19-2023 22:00-0400 Systolic blood pressure 146 mm[Hg] DO Raghav Mitchell Work Phone: [facility] 03-19-2023 21:08-0400 Heart rate 63 /min DO Raghav Mitchell Work Phone: [facility] 03-19-2023 21:04-0400 Respiratory rate 18 /min DO Raghav Stephen Work Phone: [facility] 03-19-2023 21:04-0400 SaO2% (BldA) [Mass fraction] 98 % DO Raghav Mitchell Work Phone: [facility] 03-19-2023 20:10-0400 Body height 162.56 cm DO Raghav Mitchell Work Phone: [facility] 03-19-2023 20:10-0400 Body temperature 97.8 [degF] DO Raghav Mitchell Work Phone: [facility] 03-19-2023 20:10-0400 Body weight 81.64 kg DO Raghav Stephen Work Phone: [facility] 10-14-2022 12:07-0500 Diastolic blood pressure 68 mm[Hg] Raghav Mitchell Work Phone: [facility] DO Work Phone: 10-14-2022 12:07-0500 Systolic blood pressure 128 mm[Hg] Raghav Mitchell Work Phone: [facility] DO Work Phone: 10-14-2022 11:53-0500 Body height 162.56 cm Raghav Mitchell Work Phone: [facility] DO Work Phone: 10-14-2022 11:53-0500 Body mass index (BMI) [Ratio] 31.93 kg/m2 Raghav Mitchell Work Phone: [facility] DO Work Phone: 10-14-2022 11:53-0500 Body surface area Derived from formula 1.9 m2 Raghav Mitchell Work Phone: [facility] DO Work Phone: 10-14-2022 11:53-0500 Body weight 84.37 kg Raghav Mitchell Work Phone: [facility] DO Work Phone: 10-14-2022 11:53-0500 Diastolic blood pressure 72 mm[Hg] Raghav Mitchell Work Phone: [facility] DO Work Phone: 10-14-2022 11:53-0500 Heart rate 65 /min Raghav Mitchell Work Phone: [facility] DO Work Phone: 10-14-2022 11:53-0500 Systolic blood pressure 144 mm[Hg] Raghav Mitchell Work Phone: [facility] DO Work Phone: 07-24-2022 15:30-0400 Body height 165.1 cm Isrrael Barnettormack Other [facility] [employer] Other 07-24-2022 15:30-0400 Body mass index (BMI) [Ratio] 28.29 kg/m2 Isrrael Cloudack Other [facility] [employer] Other 07-24-2022 15:30-0400 Body weight 77.11 kg Isrrael Barnettormack Other [facility] [employer] Other 06-06-2022 09:47-0400 Diastolic blood pressure 66 mm[Hg] DO Raghav Mitchell Work Phone: [facility] 06-06-2022 09:47-0400 Heart rate 71 /min DO Raghav Mitchell Work Phone: [facility] 06-06-2022 09:47-0400 Respiratory rate 20 /min DO Raghav Mitchell Work Phone: [facility] 06-06-2022 09:47-0400 SaO2% (BldA) [Mass fraction] 97 % DO Raghav Mitchell Work Phone: [facility] 06-06-2022 09:47-0400 Systolic blood pressure 145 mm[Hg] DO Raghav Mitchell Work Phone: [facility] 06-06-2022 05:51-0400 Body height 162.56 cm DO Raghav Mitchell Work Phone: [facility] 06-06-2022 05:51-0400 Body temperature 97.7 [degF] DO Raghav Mitchell Work Phone: [facility] 06-06-2022 05:51-0400 Body weight 170 kg DO Raghav Yinger Work Phone: [facility] 03-04-2022 15:49-0400 Body height 162.56 cm Raghav Mitchell Work Phone: [facility] DO Work Phone: 03-04-2022 15:49-0400 Body mass index (BMI) [Ratio] 31.58 kg/m2 Raghav Mitchell Work Phone: [facility] DO Work Phone: 03-04-2022 15:49-0400 Body surface area Derived from formula 1.89 m2 Raghav Mitchell Work Phone: [facility] DO Work Phone: 03-04-2022 15:49-0400 Body weight 83.46 kg Raghav Mitchell Work Phone: [facility] DO Work Phone: 03-04-2022 15:49-0400 Diastolic blood pressure 62 mm[Hg] Raghav Mitchell Work Phone: [facility] DO Work Phone: 03-04-2022 15:49-0400 Heart rate 69 /min Raghav Mitchell Work Phone: [facility] DO Work Phone: 03-04-2022 15:49-0400 Systolic blood pressure 112 mm[Hg] Raghav Mitchell Work Phone: [facility] DO Work Phone: Encounters Encounter Date Encounter Type Care Provider Facility Start: 06-09-2025 End: 06-09-2025 ambulatory RAGHAV MITCHELL Not Available Start: 06-09-2025 End: 06-09-2025 Bamboo flowsheet Raghav Mitchell DO Work Phone: [facility] 230 Start: 06-09-2025 End: 06-09-2025 Bamboo flowsheet Raghav Mitchell DO Work Phone: [facility] 230 Start: 05-15-2025 End: 05-15-2025 Bamboo flowsheet Porfirio Auguste Good DPM Work Phone: [facility] Start: 05-15-2025 End: 05-15-2025 Bamboo flowsheet Porfirio Rubio DPM Work Phone: [facility] Start: 05-15-2025 End: 05-15-2025 Patient encounter procedure Porfirio Rubio DPM Work Phone: [facility] Comment on above: Onychomycosis (Prima ry Dx); Onychodystrophy; Pain in both feet Start: 05-15-2025 End: 05-15-2025 ambulatory PORFIRIO Auguste GOOD Not Available Start: 04-27-2025 End: 04-28-2025 Transitional care manage srvc 7 day discharge Raghav Mitchell DO Work Phone: [facility] 230 Comment on above: Closed fracture of m ultiple ribs of left side, sequela (Primary Dx); Moniliasis skin; Atrial fibrillation, unspecified type (HCC) Start: 04-27-2025 End: 04-28-2025 ambulatory RAGHAV MITCHELL Not Available Start: 04-27-2025 End: 04-27-2025 Bamboo flowsheet Raghav Mitchell DO Work Phone: [facility] 230 Start: 04-27-2025 End: 04-27-2025 Bamboo flowsheet Raghav Mitchell DO Work Phone: [facility] 230 Start: 04-12-2025 End: 04-12-2025 Telephone encounter Raghav Mitchell DO Work Phone: [facility] 230 Comment on above: Care Coordination Start: 04-12-2025 Non-patient / Non-visit Bernard Lock [facility] Work Phone: Start: 04-05-2025 End: 04-16-2025 Evaluation and management of inpatient Bernard Lock Facility:[facility] Start: 04-05-2025 Non-patient / Non-visit Anthony Aviles MD [facility] Work Phone: Start: 04-01-2025 End: 04-05-2025 Evaluation and management of inpatient Annette Porras MD [address] Work Phone: Start: 04-01-2025 Non-patient / Non-visit Bernard Lock MD [facility] Work Phone: Start: 03-27-2025 End: 03-27-2025 Office outpatient visit 10 minutes Charmaine Pinedo MD Work Phone: [facility] Comment on above: Essential (primary) hypertension; Never smoked any substance; BMI 33.0-33.9,adult Start: 03-27-2025 End: 03-27-2025 ambulatory [facility] Start: 02-08-2025 End: 02-08-2025 Assay of hemosiderin, quant Christine Rosenthal [employer] Work Phone: [facility] Work Phone: Start: 02-08-2025 End: 02-08-2025 Patient encounter procedure Christine Rosenthal [employer] Work Phone: [facility] 230 Comment on above: Routine general medi faustina examination at health care facility (Primary Dx); Benign essential hypertension (CMS/HCC); History of atrial fibrillation; Osteoarthritis, unspecified osteoarthritis type, unspecified site Start: 02-08-2025 End: 02-08-2025 ambulatory CHRISTINE ROSENTHAL Not Available Start: 02-08-2025 End: 02-08-2025 Bamboo flowsheet Christine Rosenthal [employer] Work Phone: [facility] 230 Start: 02-08-2025 End: 02-08-2025 Bamboo flowsheet Christine Rosenthal [employer] Work Phone: [facility] 230 Start: 02-03-2025 End: 02-03-2025 Bamboo flowsheet Porfirio Rubio DPM Work Phone: [facility] Start: 02-03-2025 End: 02-03-2025 Bamboo flowsheet Porfirio Rubio DPM Work Phone: [facility] Start: 02-03-2025 End: 02-03-2025 Patient encounter procedure Porfirio Rubio DPM Work Phone: [facility] Comment on above: Onychomycosis (Prima ry Dx); Onychodystrophy; Pain in both feet Start: 02-03-2025 End: 02-03-2025 ambulatory PORFIRIO RUBIO Not Available Start: 12-02-2024 End: 12-02-2024 Office outpatient visit 25 minutes Raghav Mitchell DO Work Phone: [facility] 230 Comment on above: Diverticulitis, colo n (Primary Dx); Tachycardia; Hypertension, unspecified type ([facility]/HCC) Start: 12-02-2024 End: 12-02-2024 ambulatory RAGHAV MITCHELL Not Available Start: 11-25-2024 End: 11-25-2024 Office outpatient visit 25 minutes Charmaine Pinedo MD Work Phone: [facility] Comment on above: Paroxysmal atrial fi brillation (Multi) (Primary Dx); Essential hypertension, benign; Anticoagulated; Never smoked any substance; BMI 32.0-32.9,adult; High risk medication use; Iron deficiency anemia due to chronic blood loss; Obesity, Class I, BMI 30-34.9; Diverticulitis Start: 11-25-2024 End: 11-25-2024 ambulatory [facility] Start: 11-02-2024 End: 11-02-2024 Bamboo flowsheet Porfirio Rubio DPM Work Phone: [facility] Start: 11-02-2024 End: 11-02-2024 Bamboo flowsheet Porfirio Rubio DPM Work Phone: [facility] Start: 11-02-2024 End: 11-02-2024 Patient encounter procedure Porfirio Rubio DPM Work Phone: [facility] Comment on above: Onychomycosis (Prima ry Dx); Onychodystrophy; Pain in both feet Start: 11-02-2024 End: 11-02-2024 ambulatory PORFIRIO RUBIO Not Available Start: 10-25-2024 End: 10-25-2024 Telephone encounter Robel Worthington [employer] [facility] Start: 10-10-2024 End: 10-11-2024 Telephone encounter Marcela Cowan PT [facility] Comment on above: CX PT 10/17 - 10/26/24 Start: 10-03-2024 End: 10-03-2024 Telephone encounter Marcela Cowan PT [facility] Comment on above: Cx / Rs PT needed Start: 09-27-2024 End: 09-27-2024 Office outpatient visit 25 minutes Raghav Mitchell DO Work Phone: [facility] 230 Comment on above: Varicose [...] encounter procedure Porfirio Rubio DPM Work Phone: [facility] Comment on above: Onychomycosis (Prima ry Dx); Onychodystrophy; Pain in both feet Start: 07-27-2024 End: 07-27-2024 ambulatory PORFIRIO RUBIO Not Available Start: 05-12-2024 End: 05-12-2024 Office outpatient visit 25 minutes Raghav Mitchell DO Work Phone: [facility] 230 Comment on above: Other thrombophilia (CMS/HCC); Stricture of artery (CMS/HCC); Other forms of angina pectoris (CMS/HCC); Angina pectoris, unspecified (CMS/HCC) Start: 04-21-2024 End: 04-21-2024 Emergency department patient visit DO Raghav Mitchell Work Phone: [facility] Work Phone: Start: 04-13-2024 End: 04-13-2024 Office outpatient visit 25 minutes Charmaine Pinedo MD Work Phone: [facility] Comment on above: Paroxysmal atrial fi brillation (Multi) (Primary Dx); Essential hypertension, benign; Right bundle branch block (RBBB) on electrocardiography; Anticoagulated; Never smoked any substance; BMI 34.0-34.9,adult; Microcytic anemia; High risk medication use; Diverticulitis Start: 01-26-2024 End: 01-27-2024 ambulatory [facility] Start: 09-18-2023 End: 09-18-2023 Office outpatient visit 25 minutes Charmaine Pinedo MD Work Phone: [facility] Comment on above: Paroxysmal atrial fi brillation (CMS/HCC) (Primary Dx); Essential hypertension, benign; Never smoked any substance; High risk medication use; Class II obesity; Premature atrial contractions Start: 09-01-2023 End: 09-01-2023 Emergency department patient visit DO Raghav Stephen Work Phone: [facility]-Emergency Room Work Phone: Start: 08-18-2023 End: 08-18-2023 Office outpatient visit 10 minutes Charmaine Pinedo MD Work Phone: [facility] Comment on above: Essential hypertensi on, benign Start: 07-27-2023 End: 07-27-2023 Emergency department patient visit DO Raghav Mitchell Work Phone: [facility]Emer[facility] Work Phone: Start: 04-16-[address] Charmaine Pinedo Facility: Start: 04-16-2023 Office outpatient vi sit 25 minutes aRghav Mitchell Work Phone: [facility] 250 DO Work Phone: Start: 04-02-2023 Rx Renewal Raghav Mitchell Work Phone: [facility] 250 DO Work Phone: Start: 03-19-2023 End: 03-19-2023 Emergency department patient visit DO Raghav Mitchell Work Phone: [facility]Emergency Room Work Phone: Start: 03-19-2023 Rx Renewal Raghav Mitchell Work Phone: [facility] 250 DO Work Phone: Start: 03-15-2023 Rx Renewal Raghav Mitchell Work Phone: [facility] 250 DO Work Phone: Start: 10-14-2022 Office outpatient vi sit 25 minutes Raghav Mitchell Work Phone: [facility] 250 DO Work Phone: Start: 10-14-[address] Charmaine Pinedo Facility: Start: 10-08-2022 Rx Renewal Raghav Mitchell Work Phone: [facility] 250 DO Work Phone: Start: 10-04-2022 End: 10-05-[address] DOCTOR HARDY Facility:H1 Start: 09-29-2022 End: 09-29-[address] RAGHAV MITCHELL Facility:H1 Start: 09-10-2022 Telephone encounter Raghav gomes Work Phone: [facility] [employer] 250 DO Work Phone: Start: 09-06-2022 End: 09-06-[address] RAGHAV MITCHELL Facility:H1 Start: 07-24-2022 End: 07-24-2022 ambulatory Isrrael Aparicio Other [employer] Other Start: 07-24-2022 Office outpatient ne w 45 minutes Isrrael Aparicio [facility] Gastroenterology Start: 06-06-2022 End: 06-06-2022 Emergency department patient visit DO Raghav Mitchell Work Phone: [facility]Emergency Room Start: 03-04-2022 Office outpatient vi sit 25 minutes Raghav Mitchell Work Phone: [facility] [place] [employer] 250 DO Work Phone: Start: 01-14-2022 End: 01-14-[address] RAGHAV MITCHELL Facility:H1 Start: 01-10-2022 End: 01-10-2022 ambulatory George Adams Other [facility] [employer] Other Start: 01-10-2022 Telephone encounter George Adams [facility] Gastroenterology Start: 12-17-2021 AUDIT Raghav Mitchell Work Phone: [facility] [employer] 250 DO Work Phone: Start: 12-16-2021 End: 12-17-[address] RAGHAV MITCHELL Facility:H1 Start: 10-26-2021 End: 10-26-[address] HIRO TOMPKINS Facility:H1 Start: 08-20-2021 Telephone encounter Raghav gomes Work Phone: [facility] [place] [employer] [address] [place] Work Phone: Start: 11-24-2018 Patient encounter procedure JES NEWMAN Facility:[id number] Start: 11-18-2018 Patient encounter procedure JES NEWMAN Facility:[id number] Start: 2018 Patient encounter procedure CARVALHOLILY OVERTONIM Facility:[id number] Procedures Date Procedure Procedure Detail Performing Clinician Start: 04-01-2025 Computed tomography of abdomen and pelvis with contrast Raghav Mitchell DO Work Phone: Start: 04-01-2025 CT of thorax with contrast Raghav Mitchell DO Work Phone: Start: 04-01-2025 Plain chest X-ray Raghav Mitchell DO Work Phone: Start: 11-25-2024 Ecg routine ecg w/le ast [...] 09-01-2023 Plain chest X-ray DO Pa mitra Mitchell Work Phone: Start: 07-27-2023 CT of abdomen and pe lvis without contrast DO Raghav Mitchell Work Phone: Start: 07-27-2023 Plain chest X-ray DO Pa mitra Mitchell Work Phone: Start: 06-06-2022 CT of abdomen and pe lvis without contrast DO Raghav Mitchell Work Phone: Start: 06-06-2022 Plain chest X-ray DO Pa mitra Mitchell Work Phone: Appendectomy Raghav Mitchell Work Phone: Cataract surgery Raghav sullivan Work Phone: Cholecystectomy Raghav goldberg Work Phone: Colonoscopy Raghav Mitchell Work Phone: Hysterectomy Raghav Mitchell Work Phone: SARS Antigen (LFIA) DO Raghav Mitchell Work Phone: Surgical procedure Raghav Bryan Julian santos Work Phone: Plan of Treatment Date Care Activity Detail Author Start: 01-15-2032 DTaP/Tdap/Td Vaccine s (3 - Td or Tdap) DTaP/Tdap/Td Vaccines (3 - Td or Tdap) [facility] Start: 02-08-2026 Medicare Annual Well ness (AWV) Medicare Annual Wellness (AWV) [facility] Start: 12-09-2025 Pneumococcal Vaccine : 65+ Years (2 of 2 - PPSV23 or PCV20) Pneumococcal Vaccine: 65+ Years (2 of 2 - PPSV23 or PCV20) [facility] Comment on above: Postponed from 11/03 (Patient Refused) Start: 12-09-2025 Pneumococcal Vaccine : 65+ Years (2 of 2 - PPSV23) Pneumococcal Vaccine: 65+ Years (2 of 2 - PPSV23) [facility] Comment on above: Postponed from 11/03 (Patient Refused) Start: 07-14-2025 End: 07-14-2025 Patient encounter procedure 07/14/2025 3:20 PM EDT Office Visit [facility] [address] [facility] [address] [place] [id number] Charmaine Pinedo MD [address] [facility] [address], [address] [place] [address] [facility] Start: 05-29-2025 Influenza vaccination [facility] Start: 05-15-2025 End: 05-15-2025 Patient encounter procedure 05/15/2025 1:00 PM EDT [facility] [address] [place] [address] Porfirio Rubio, DPRaffy [address] [place] [address] Arrived [facility] Comment on above: Arrived Start: 04-27-2025 End: 04-27-2025 Patient encounter procedure 04/27/2025 4:40 PM EDT Office Visit [facility] [address] [place] [address] Raghav Mitchell DO [address] [place] [address] Arrived [facility] 230 Comment on above: Arrived Start: 04-16-2025 [facility] Start: 04-13-2025 [facility] Start: 04-05-2025 Hospital admission [facility] Start: 04-05-2025 Referral to clinical welt slasher [facility] Start: 04-05-2025 [facility] Start: 04-04-2025 Urine culture [facility] Start: 04-03-2025 Referral to rehabilitation physician [facility] Start: 04-02-2025 XR Chest 2 Views [facility] Start: 04-02-2025 XR chest 2V* XR chest 2V* [facility] Start: 04-02-2025 [facility] Start: 04-01-2025 Physical therapy procedure [facility] Start: 04-01-2025 Referral to occupati onal therapist [facility] Start: 04-01-2025 Consultation [facility] Start: 04-01-2025 Hospital admission [facility] Start: 02-08-2025 End: 02-08-2025 Patient encounter procedure [facility] 230 Comment on above: Arrived Start: 02-03-2025 End: 02-03-2025 Patient encounter procedure [facility] Comment on above: Arrived Start: 02-01-2025 Medicare Annual Well ness Visit Medicare Annual Wellness Visit (AWV) [facility] Start: 01-31-2025 Medicare Annual Well ness (AWV) Medicare Annual Wellness (AWV) [facility] Start: 11-25-2024 End: 11-25-2025 Basic metabolic 2000 panel - Serum or Plasma Basic Metabolic Panel Lab Routine Paroxysmal atrial fibrillation (Multi) Essential hypertension, benign Anticoagulated Expected: 11/25/2024 (Approximate), Expires: 11/25/2025 [facility] Service Area Work Phone: Comment on above: Expected: 11/25/2024 (Approximate), Expires: 11/25/2025 Start: 11-25-2024 End: 11-25-2025 CBC panel - Blood by Automated count CBC Lab Routine Paroxysmal atrial fibrillation (Multi) Anticoagulated Expected: 11/25/2024 (Approximate), Expires: 11/25/2025 [facility] Work Phone: Comment on above: Expected: 11/25/2024 (Approximate), Expires: 11/25/2025 Start: 11-10-2024 End: 11-10-2024 Patient encounter procedure 11/10/2024 11:00 AM EST Office Visit [facility] [address] [facility] [address] [place] [phone] Charmaine Pinedo MD [address] [facility] [address], [address] [place], [place] [id number] [facility] Start: 11-09-2024 End: 11-09-2024 Clinical Support 11/09/2024 3:45 PM EST Clinical Support [facility] [address] [facility] [address] [place] [phone] Holly Hogue, [facility] [address] [facility] [place] [address] [facility] Start: 11-02-2024 End: 11-02-2024 Patient encounter procedure [facility] Comment on above: Arrived Start: 10-26-2024 End: 10-26-2024 ambulatory 10/26/2024 5:00 PM EST Treatment [facility] [address] [place] [address] Marcela Cowan, PT [facility] Start: 10-24-2024 End: 10-24-2024 ambulatory 10/24/2024 5:00 PM EST Treatment [facility] [address] [place] [phone] Marcela Cowan, PT [facility] Start: 10-19-2024 End: 10-19-2024 ambulatory 10/19/2024 4:30 PM EST Treatment [facility] [address] [place] [address] Marcela Cowan, PT [facility] Start: 10-17-2024 End: 10-17-2024 ambulatory 10/17/2024 6:00 PM EST Evaluation [facility] [address] [place] [address] Marcela Cowan, PT [facility] Start: 10-13-2024 End: 10-13-2024 ambulatory 10/13/2024 12:00 PM EST Treatment [facility] [address] [place] [address] Naman Arcos, PLATER APPRENTICE [facility] Start: 10-11-2024 End: 10-11-2024 ambulatory 10/11/2024 5:00 PM EST Treatment [facility] [address] [place] [address] Naman Arcos, PLATER APPRENTICE [facility] Start: 10-05-2024 End: 10-05-2024 ambulatory 10/05/2024 5:00 PM EST Evaluation [facility] [address] [place] [address] Marcela Cowan, PT [facility] Start: 09-27-2024 End: 09-27-2024 Patient encounter procedure 09/27/2024 11:20 AM EST Office Visit [facility] [address] [place] [place] [address] Raghav Mitchell DO [address] [place] [place] [address] [facility] 230 Start: 09-26-2024 End: 09-26-2024 Patient encounter procedure 09/26/2024 2:45 PM EST Office Visit [facility] [address] [place] [phone] Chloe Mercado PA [address] [place] [address] Acute hip pain, left (Primary Dx) [facility] Comment on above: Acute hip pain, left (Primary Dx) Start: 05-29-2024 COVID-19 Vaccine ( season) COVID-19 Vaccine ( season) [facility] Start: 05-29-2024 Influenza vaccination Influenza Vacc ine (#1) [facility] Start: 04-21-2024 Computed tomography of abdomen and pelvis with contrast CT abdomen pelvis w con [facility] Start: 04-21-2024 [facility] Start: 04-21-2024 Hepatic function panel [facility] Start: 04-21-2024 [facility] Start: 04-13-2024 End: 04-13-2024 Patient encounter procedure 04/13/2024 11:10 AM EDT Office Visit [address] [address] Charmaine Pinedo MD [address] [place] [address] 2, [address] [address] [facility] Start: 09-29-2023 FUV, Provider: Charmaine Pinedo, Status: Pen, Time: 10:40 AM FUV, Provider: Charmaine Pinedo, Status: Pen, Time: 10:[address] [facility] 250 DO Work Phone: Start: 09-29-2023 End: 09-29-2023 Patient encounter procedure 09/29/2023 10:40 AM EST Office Visit [address] [address] Charmaine Pinedo MD [address] [place] [address] 2, [facility] 250 [place] [address] [facility] Start: 05-29-2023 COVID-19 Vaccine ( season) COVID-19 Vaccine ( season) [facility] Start: 05-29-2023 Influenza vaccination Influenza Vacc ine (#1) [facility] Start: 04-16-2023 FUV, Provider: Charmaine Pinedo, Status: Pen, Time: 10:40 AM FUV, Provider: Charmaine Pinedo, Status: Pen, Time: 10:40 AM [facility] 250 DO Work Phone: Start: 03-19-2023 Plain chest X-ray XR chest 2V* [facility] Start: 03-19-2023 XR Chest 2 Views [facility] Start: 10-14-2022 FUV, Provider: Charmaine Pinedo, Status: Pen, Time: 11:40 AM FUV, Provider: Charmaine Pinedo, Status: Pen, Time: 11:40 AM -[facility] 250 DO Work Phone: Start: 09-10-2022 FUV, Provider: Charmaine Pinedo, Status: Pen, Time: 10:40 AM FUV, Provider: Charmaine Pinedo, Status: Pen, Time: 10:40 AM -[facility] 250 DO Work Phone: Start: 03-04-2022 FUV, Provider: Charmaine Pinedo, Status: Pen, Time: 3:30 PM FUV, Provider: Charmaine Pinedo, Status: Pen, Time: 3:30 PM -[facility] 250 DO Work Phone: Start: 11-12-2021 COVID-19 Vaccine (4 - Pfizer series) COVID-19 Vaccine (4 - Pfizer series) [facility] Start: 10-31-2021 FUV, Provider: Charmaine Pinedo, Status: Pen, Time: 9:15 AM FUV, Provider: Charmaine Pinedo, Status: Pen, Time: 9:15 AM [facility] [place] Work Phone: Start: 09-08-2017 Pneumococcal vaccination [facility] Start: 09-08-2017 Pneumococcal Vaccine : 65+ Years (2 - PPSV23 or PCV20) Pneumococcal Vaccine: 65+ Years (2 - PPSV23 or PCV20) [facility] Start: 09-08-2017 Pneumococcal Vaccine : 65+ Years (2 of 2 - PPSV23 or PCV20) Pneumococcal Vaccine: 65+ Years (2 of 2 - PPSV23 or PCV20) [facility] Start: 11-03-2016 Pneumococcal Vaccine : 65+ Years (2 of 2 - PPSV23 or PCV20) Pneumococcal Vaccine: 65+ Years (2 of 2 - PPSV23 or PCV20) [facility] Start: 2016 RSV High Risk: (Elde rly (60+) or Population) (1 - 1-dose 75+ series) RSV High Risk: (Elderly (60+) or Population) (1 - 1-dose 75+ series) [facility] Start: 2001 RSV patient s and/or patients aged 60+ years (1 - 1-dose 60+ series) RSV patients and/or patients aged 60+ years (1 - 1-dose 60+ series) [facility] Start: 1991 Zoster Vaccines (1 of 2) Zoster Vacc cholo (1 of 2) [facility] Start: 1959 Diabetes mellitus screening Diabetes Screening [facility] Start: 1941 Lipid panel Lipid Panel [facility] Start: 1941 Medicare Annual Well ness Visit Medicare Annual Wellness Visit (AWV) [facility] Start: 1941 Screening for osteoporosis Bone Density Scan [facility] Albumin/Globulin ratio [facility] Anion gap measurement [facility] aPTT in Platelet poo r plasma by Coagulation assay [facility] Basophils [#/volume] in Blood by Automated count [facility] Basophils/100 leukoc ytes in Blood by Automated count [facility] Bilirubin.indirect [Mass/volume] in Serum or Plasma [facility] Eosinophils/100 leukocytes in Blood by Automated count [facility] Erythrocyte distribu tion width [Ratio] by Automated count [facility] Erythrocytes [#/volu me] in Blood [facility] Globulin [Mass/volum e] in Serum [facility] Hematocrit [Volume Fraction] of Blood [facility] Hemoglobin [Mass/vol ume] in Blood [facility] INR in Platelet poor plasma by Coagulation assay [facility] Leukocytes [#/volume ] corrected for nucleated erythrocytes in Blood by Automated coun [facility] Leukocytes [#/volume ] in Blood [facility] Lymphocytes [#/volum e] in Blood by Automated count [facility] Lymphocytes/100 leukocytes in Blood by Automated count [facility] MCH [Entitic mass] b y Automated count [facility] MCHC [Mass/volume] b y Automated count [facility] MCV [Entitic volume] by Automated count [facility] Monocytes [#/volume] in Blood by Automated count [facility] Monocytes/100 leukoc ytes in Blood by Automated count [facility] Neutrophils [#/volum e] in Blood by Automated count [facility] Neutrophils/100 leukocytes in Blood by Automated count [facility] Nucleated erythrocyt es [Presence] in Blood by Automated count [facility] Patient Education [facility] Work Phone: Patient referral [facility] Work Phone: Platelet mean volume [Entitic volume] in Blood by Automated count [facility] Platelets [#/volume] in Blood [facility] Prothrombin time (PT) [facility] Immunizations Immunization Date Immunization Notes Care Provider Fa cility 01-14-2022 diphtheria, tetanus toxoids and pertussis vaccine Raghav Mitchell Work Phone: -[facility] 250 DO Work Phone: 01-14-2022 tetanus toxoid, redu juan pablo diphtheria toxoid, and acellular pertussis vaccine, adsorbed Charmaine Pinedo MD Work Phone: [facility] Work Phone: 09-17-2021 Pfizer-BioNTech COVID-19 Vacc 30 MCG/0.3ML Intramuscular Suspension Raghav Irvin Stephen Work Phone: [facility] 250 DO Work Phone: 02-04-2021 Pfizer-BioNTech COVID-19 Vacc 30 MCG/0.3ML Intramuscular Suspension Raghav Bryan Stephen Work Phone: [facility] 250 DO Work Phone: 01-07-2021 Pfizer-BioNTech COVID-19 Vacc 30 MCG/0.3ML Intramuscular Suspension Raghav Bryan Stephen Work Phone: [facility] 250 DO Work Phone: 09-08-2016 pneumococcal conjuga te vaccine, 13 valent Raghav Irvin Stephen Work Phone: [facility] 250 DO Work Phone: Payers Date Payer Category Payer [facility] Insurance [employer] [id number] 2006 Medicare [id number] 1959 Medicare [id number] 1959 Unknown [id number] [id number] 1941 Unknown [id number] 2.16.840.1.220279.3.579.2. 355 1941 Unknown [id number] 2.16.840.1.381186.3.579.2. 355 1941 Unknown [id number] 2.16.840.1.747137.3.579.2. 355 1941 Unknown [id number] 2.16.840.1.347449.3.579.2. 593 1941 Unknown [id number] 2.16.840.1.994340.3.579.2. 593 1941 Unknown [id number] 2.16.840.1.748170.3.579.2. 593 1941 Unknown [id number] 2.16.840.1.487139.3.579.2. 593 1941 Unknown [id number] 2.16.840.1.066660.3.579.2. 593 1941 Unknown [id number] 2.16840.1.509198.3.579.2. 593 1941 Unknown [id number] 2.16840.1.673185.3.579.2. 356 1941 Unknown [id number] 2.16840.1.536583.3.579.2. 356 1941 Unknown [id number] 2.16.840.1.474175.3.579.2. 1286 1941 Unknown [id number] 2.16840.1.858735.3.579.2. 1244 1941 Unknown [id number] 2.16.840.1.811340.3.579.2. 1244 1941 Unknown [id number] 2.16840.1.237950.3.579.2. 1259 1941 Unknown [id number] 2.16840.1.172821.3.579.2. 1259 1941 Unknown [id number] 2.16840.1.347930.3.579.2. 1259 1941 Unknown [id number] 2.16.840.1.419027.3.579.2. 1259 1941 Unknown [id number] 2.16.840.1.358017.3.579.2. 1259 1941 Unknown [id number] 2.16.840.1.629512.3.579.2. 1259 1941 Unknown [id number] 2.16.840.1.270223.3.579.2. 1259 1941 Unknown [id number] 2.16.840.1.740200.3.579.2. 1259 1941 Unknown [id number] 2.16.840.1.547428.3.579.2. 1259 1941 Unknown [id number] 2.16.840.1.482158.3.579.2. 1259 1941 Unknown [id number] 2.16.840.1.288847.3.579.2. 1259 1941 Unknown [id number] 2.16.840.1.718287.3.579.2. 1259 Medicare [id number] Self-pay Self Pay [id number] Unknown [id number] Unknown Unknown [place] [id number] Social History Date Type Detail Facility Start: 07-23-2023 End: 09-07-2024 Never a smoker Never a smoker [facility] 250 DO Work Phone: Start: 07-23-2023 End: 09-07-2024 Sex Assigned At [facility] [employer] Other Start: 06-06-2022 End: 04-28-2023 Tobacco smoking status NHIS Never smoked tobacco (finding) [facility] Start: 1940 Sex Assigned At Female F [facility] Start: 04-28-2023 End: 07-10-2023 Tobacco use and exposure Smokeless tobacco non-user [facility] Work Phone: Start: 1940 [facility]: Start: 08-08-2023 End: 11-25-2024 Exposure to SARS-CoV-2 (event) Not sure [facility] Start: 09-18-2023 End: 05-15-2025 Alcohol intake Lifetime non-drinker (finding) [facility] Work Phone: Within the last year [...] days [OSQ] Only a little [facility] How often do you nee d to have someone help you when you read instructions, pamphlets, or other written material from your doctor or pharmacy [SILS] Sometimes [facility] Sex Female (finding) [facility] Start: 04-03-2025 End: 04-12-2025 SDOH Follow up SDOH Follow up [facility] Work Phone: NEGATED: Highlighted rowStart: NINF History of tobacco use Passive smoker [facility] Functional Status Date Assessment Result Facility 04-27-2025 Patient Health Quest ionnaire 2 item (PHQ-2) [Reported] [facility] 02-08-2025 Patient Health Quest ionnaire 2 item (PHQ-2) [Reported] [facility] Clinical Notes 07-24-2022 to 05-15-2025 Porfirio Rubio, AMBERM - 05/15/2025 1:00 PM EDTPmindi Mitchell DO - 04/27/2025 4:40 PM EDTTelephone Encounter - Karuna Mayorga - 04/12/2025 10:19 AM EDT Note Date & Type Note Facility 05-15-2025 History of Presen t illness Narrative Images from the original note were not included. Subjective Patient ID: Jessy Dow is a 84 y.o. female who presents for Nail care ( Jessy Dow is a 84 y.o. female who presents for Toenail Care. ). HPI Established patient presents to clinic for painful toenails. Review of Systems Constitutional: Negative for activity change and appetite change. Respiratory: Negative for chest tightness and shortness of breath. Cardiovascular: Positive for leg swelling. Negative for chest pain. Musculoskeletal: Positive for arthralgias. Skin: Negative for color change and wound. Neurological: Negative for weakness and numbness. Psychiatric/Behavioral: Negative for agitation and behavioral problems. Hematological: Does not bruise/bleed easily. Endocrine: Negative for cold intolerance and heat intolerance. Allergic/Immunologic: Negative for immunocompromised state. Medications Current Outpatient Medications: acetaminophen (Tylenol) 325 MG tablet, Take 1-2 tablets by mouth as needed in the morning and 1-2 tablets as needed in the evening for mild pain., Disp: , Rfl: cloNIDine (Catapres) 0.1 MG tablet, Take 0.1 mg by mouth Daily as needed for high blood pressure., Disp: , Rfl: Eliquis 5 MG tablet, Take 5 mg by mouth in the morning and 5 mg before bedtime., Disp: , Rfl: flecainide (Tambocor) 50 MG tablet, Take 0.5 tablets by mouth in the morning and 0.5 tablets before bedtime., Disp: , Rfl: guaiFENesin (Mucinex) 600 MG 12 hr tablet, Take 600 mg by mouth as needed in the morning and 600 mg as needed in the evening for cough (cough/phlegm). Do not crush, chew, or split., Disp: , Rfl: hydrALAZINE (Apresoline) 50 MG tablet, Take 50 mg by mouth in the morning and 50 mg in the evening and 50 mg before bedtime., Disp: , Rfl: hyoscyamine (Levsin) 0.125 MG SL tablet, Take 0.125 mg by mouth every 4 (four) hours if needed for cramping, Disp: , Rfl: irbesartan (Avapro) 150 MG tablet, Take 150 mg by mouth in the morning and 150 mg before bedtime., Disp: , Rfl: metoprolol tartrate (Lopressor) 25 MG tablet, Take 25 mg by mouth Daily as needed (For breakthrough A-Fib), Disp: , Rfl: Multiple Vitamins-Minerals (Multivitamin Adult, Minerals,) tablet, Take 1 tablet by mouth 1 (one) time each day, Disp: , Rfl: oxyCODONE (Roxicodone) 5 MG immediate release tablet, Take 5 mg by mouth every 4 (four) hours if needed for severe pain or moderate pain, Disp: , Rfl: polyethylene glycol, PEG, 3350 (Miralax) 17 g packet, Take 17 g by mouth Daily as needed, Disp: , Rfl: spironolactone (Aldactone) 50 MG tablet, Take 50 mg by mouth Daily, Disp: , Rfl: Allergies Doxycycline, Norah inhibitors, Amlodipine, Chlorthalidone, Clonidine, Codeine, Hydrochlorothiazide, Lisinopril, Loperamide, Nsaids, Other, Penicillins, Sulfanilamide, and Nifedipine Past Surgical History Past Surgical History: Procedure Laterality Date CATARACT EXTRACTION, BILATERAL Bilateral 2018 [facility] 2004 [facility] COLONOSCOPY 11/2017 -moderate sigmoid diverticular disease HEART CATH 01/17/2019 OTHER SURGICAL HISTORY avoiding seeds- Diverticulosis FL EXCISION THYROGLOSSAL DUCT CYST/SINUS TOTAL ABDOMINAL HYSTERECTOMY [...] utilizing a nail nipper and electric bur convex grinder without incident. Patient noted relief of [...] Porfirio Rubio DPM documented in this encounter [facility] 04-27-2025 History of Presen t illness Narrative Images from the original note were not included. Jessy Dow is a 84 y.o. female presents with chief complaint of No chief complaint on file. HPI: HPI Post hospital stay History of Present Illness The patient is an 84-year-old female who presents for a hospital follow-up. She is accompanied by her daughter. She reports experiencing soreness and has been informed of having multiple rib fractures, with the exact number varying between 2 and more than 4. Her home health nurse today told her that she had more than 4 rib fractures. She experiences difficulty lying on her back due to swelling and discomfort when lying on her side. She also reports soreness in her hip and tailbone. She was given pain medications including oxycodone, Dilaudid, Flexeril, and extended-release morphine, which caused drowsiness. She was administered oxycodone and Tylenol together, resulting in a 7-hour sleep. She took OxyContin before bed last night to alleviate pain and aid sleep. She was diagnosed with anemia and acute kidney injury due to dehydration. She was initially diagnosed with a UTI, but this was later ruled out. She was prescribed Rocephin for a suspected UTI, but the culture came back negative. She noticed an increase in urination frequency during her hospital stay. She was placed on a low potassium diet, but a doctor later informed her that her potassium levels were not elevated. Despite this, the dietary team continued to enforce the low potassium diet. She was advised to avoid bananas, Turkmen yogurt, and potatoes. She was not taking any blood pressure medications for a long time because her blood pressure was low. She was gradually started back on hydralazine and spironolactone. She was not given irbesartan in the hospital, so she just started taking it when she got back home. She was given clonidine to take if her blood pressure goes up to 160 and Toprol if her heart got to racing. She has another medication for lower abdominal pain because of her diverticulitis. Most of the time when she takes her blood pressure on her machine, her pulse is in the 50s because she takes flecainide. She was diagnosed with thrush and given nystatin mouthwash, which she used for more than 4 days. She was also diagnosed with a yeast infection and used Monistat for treatment. Sleep: She has difficulty sleeping due to pain and swelling from rib fractures. Living Condition: Lives with her daughter SUBJECTIVE: MEDICATIONS: ALLERGIES Current Outpatient Medications Medication Instructions acetaminophen (Tylenol) 325 MG tablet 1-2 tablets, 2 times daily PRN cloNIDine (CATAPRES) 0.1 mg, Daily PRN Eliquis 5 mg, 2 times daily flecainide (Tambocor) 50 MG tablet 0.5 tablets, 2 times daily guaiFENesin (MUCINEX) 600 mg, 2 times daily PRN hydrALAZINE (APRESOLINE) 50 mg, 3 times daily hyoscyamine (LEVSIN) 0.125 mg, Every 4 hours PRN irbesartan (AVAPRO) 150 mg, 2 times daily metoprolol tartrate (LOPRESSOR) 25 mg, Daily PRN Multiple Vitamins-Minerals (Multivitamin Adult, Minerals,) tablet 1 tablet, Daily oxyCODONE (ROXICODONE) 5 mg, Every 4 hours PRN polyethylene glycol (PEG) 3350 (MIRALAX) 17 g, Daily PRN spironolactone (ALDACTONE) 50 mg, Daily Allergies Allergen Reactions Doxycycline GI intolerance Norah Inhibitors Other Amlodipine Swelling and Unknown [...] feeling Nifedipine Palpitations Depression: Not at risk (04/27/2025) PHQ-2 PHQ-2 Score: 0 REVIEW OF SYMPTOMS: Review of Systems OBJECTIVE: BP 120/78 Pulse 74 Ht 5' 3 Wt 186 lb SpO2 97% BMI 32.95 kg/m No results found for this or any previous visit (from the past 6 weeks). Results Labs - Potassium levels: Normal - Urinalysis: No bladder infection GENERAL EXAM: Physical Exam Physical Exam Mouth/Throat: No evidence of thrush. Respiratory: Still a little bit of blood in the left chest cavity. Cardiovascular: Blood pressure 120/78, pulse rate 74. Musculoskeletal: Multiple rib fractures noted. Skin: Swollen left chest. ASSESSMENT AND PLAN: Diagnoses and all orders for this visit: Closed fracture of multiple ribs of left side, sequela (Primary) Moniliasis skin Atrial fibrillation, unspecified type (HCC) Assessment & Plan 1. Post-hospitalization follow-up. - Rib fractures are healing well, with the presence of blood in the chest cavity expected to resolve within a 3 to 6-week period. - Blood pressure today is 120/78, and pulse rate is 74. She has experienced some weight loss during this period. - Potential risks associated with Eliquis were discussed, including the increased risk of bleeding from falls versus the risk of stroke due to atrial fibrillation. - Advised to continue using Monistat for her yeast infection and to apply corn starch powder to manage excess moisture on the skin surface. 2. Anemia. - Noted to have anemia during her hospital stay. - No specific treatment changes were discussed during this visit. - Reviewed records indicating anemia diagnosis. - No new medications or therapies prescribed. 3. Acute kidney injury. - Experienced an acute kidney injury likely due to slight dehydration. - No specific treatment changes were discussed during this visit. - Reviewed records indicating acute kidney injury diagnosis. - No new medications or therapies prescribed. 4. Elevated potassium. - Potassium levels were reported as high during her hospital stay, but this was later corrected to be within the normal range. - Advised to continue her current diet and medication regimen. - Reviewed records indicating corrected potassium levels. - No new medications or therapies prescribed. 5. Medication management. - Currently on hydralazine, spironolactone, irbesartan, clonidine, Toprol, and flecainide. - Advised to continue these medications as prescribed. - Reviewed records indicating current medication regimen. - No new medications or therapies prescribed. No follow-ups on file. I have reviewed and reconciled the history and medication list with the patient today. documented in this encounter [facility] 04-12-2025 Telephone encount er Note Calling to confirm Dr. Mitchell will follow pt for hh. Ok to [facility]. [phone] [facility] 04-12-2025 Miscellaneous Notes Formattin g of this note might be different from the original. Calling to confirm Dr. Mitchell will follow pt for hh. Ok to [facility]. [phone] documented in this encounter [facility] 04-01-2025 History and physi faustina note [facility] enter 04-01-2025 Evaluation note Diagnosis Onset Date Resolution Fracture of rib acute April 01, 2025 9:08am Hemothorax acute April 01, 2025 9:08am [facility] Work Phone: 1(239) 445-890207-05-2025 Evaluation note* Diagnosis Onset Date Resolution Status Admit Date Acute hypoxemic respiratory failure acute April 01, 2025 9 :08am Afib acute April 01, 2025 9:08am REAVES (dyspnea on exertion) acute April 01, 2025 9:08am Fracture of rib acute April 01, 2025 9:08am Hemothorax acute April 01, 2025 9:08am Hypertension acute April 01 9:08am Multiple fractures of ribs acute April 01, 2025 9:08am [facility] Work Phone: [phone]) 130-769107-05-2025 Evaluation note* Diagnosis Onset Date Resolution Status Admit Date Multiple fractures of ribs acute April 01, 2025 9:08am Acute hypoxemic respiratory failure resolved April 01, 2025 9 :08am Afib resolved April 01, 2025 9:08am REAVES (dyspnea on exertion) resolved April 01, 2025 9:08am Fracture of rib resolved April 01, 2025 9:08am Hemothorax resolved April 01, 2025 9:08am Hypertension resolved April 01 9:08am Impaired mobility and activi ties of daily living acute April 05, 2025 5 :07pm Multiple fractures of ribs acute April 05, 2025 5:07pm Acute hypoxemic respiratory failure resolved April 05, 2025 5 :07pm Afib resolved April 05, 2025 5:07pm Fracture of rib resolved April 05, 2025 5:07pm Hemothorax resolved April 05, 2025 5:07pm Hypertension resolved April 05 5:07pm [facility] Work Phone: 1(969) 105-796607-05-2025 [facility]iology [facility] [place] [address] [place], [place] [id number] CT Scan Report Signed Patient: Jessy Dow MR#: [id number] : 1940 Acct:[id number] Age/Sex: 84 / F ADM Date: 07/05/2 5 Loc: ER Room: Type: [facility] ER Attending Dr: Copies to: DO Kodi Drew Jr, MD~ Ordering Provider: Kodi Smith Jr, MD Date of Service: 04/01/25 CT/CT abdomen pelvis w con: fall, L rib and abd pain ([id number]) CT/CT chest w con: fall, L rib and abd pain CT Chest, Abdomen and Pelvis with contrast TECHNIQUE: Axial imaging with 2-D reconstruction. The CT exam was performed using one or more the following dose reduction techniques: Automated exposure control, adjustment of the MA and/or Kv according to patient size, or use of theiterative reconstruction technique. History: Fell down steps. Left flank pain. Pain with inspiration. Left flank bruising COMPARISON: None THYROID: No significant thyroid abnormality identified. AIRWAY: Central airway is patent. ESOPHAGUS: Esophagus normal course and caliber. HEART: Heart is not enlarged. PERICARDIAL EFFUSION: None CORONARY ARTERY CALCIFICATION: None MEDIASTINUM: Nonenlarged mediastinal lymph nodes identified. HILAR REGION: No hilar mass or adenopathy is seen. THORACIC AORTA: No thoracic aortic aneurysm or dissection. No atherosclerosis LUNG INTERSTITIUM: Left lung base consolidation may represent small contusion. PLEURAL EFFUSION Small left basilar pleural fluid may represent small hemothorax. PNEUMOTHORAX: No pneumothorax seen. LUNG NODULE: No lung nodules identified. CHEST WALL: Contusion of the left flank. The bony chest intact. LIVER: No hepatic mass or intrahepatic biliary ductal dilatation is identified. Normal density of the liver parenchyma identified. GALLBLADDER: Cholecystectomy BILE DUCTS: No biliary duct dilatation identified. SPLEEN: Splenic calcifications. PANCREAS: Unremarkable ADRENAL GLANDS: The adrenal glands are unremarkable. KIDNEYS: Unremarkable ABDOMINAL AORTA: The abdominal aorta is normal. RETROPERITONEUM: No significant retroperitoneal abnormalities identified. STOMACH:Nondistended SMALL BOWEL: The small bowel loops are nondistended. APPENDIX: Appendectomy COLON: There is no colitis or diverticulitis. Diverticulosis. URINARY BLADDER: Urinary bladder is unremarkable. REPRODUCTIVE STRUCTURES: Hysterectomy FREE AIR: None FREE FLUID: None ABDOMINAL WALL: No subcutaneous soft tissue abnormality identified. INGUINAL HERNIA: None BONES:Fractures left posterior ninth and 10th ribs. CT/CT chest w con IMPRESSION: Fractures of the posterior left ninth and 10th ribs with small adjacent contusion and trace hemothorax. No pneumothorax. No acute traumatic findings of the abdomen or pelvis. PRELIMINARY RESULTS: None given Impression dictated by: Burak Bravo M.D. 04/01/2025 7:59 AM Dictation Location: [facility] Transcribed By: [facility] 04/01/25 0759 Dictated By: Burak Bravo DO 04/01/25 0752 Signed By: 04/01/25 0759 [facility]06-30-2025 History of Present illness Narrative * Charmaine Pinedo MD - 03/27/2025 3:00 PM EDT Chief Complaint Patient presents with Hypertension 4 month Follow up for Hypertension Subjective Jessy Dow is a 84 y.o. female HPI Patient is in the office for hypertension management. Her blood pressure reading at home have been fluctuating significantly. She has intolerance to numerous medications for hypertension that limit our capabilities of choosing what will work and will be well-tolerated, I advised patient to start taking hydralazine 50 mg 3 times daily instead of twice daily. She continue to use clonidine sparinglyfor spikes in the blood pressure. She has slow heart rate where beta- blockers or calcium/blockers are not feasible to use. She follows low-salt diet and was encouraged to eat a lot of vegetables. Exercise and weight loss were recommended as well. ROS Dizziness and fatigue related to fluctuating blood pressure readings Vitals: 03/27/25 1500 03/27/25 1508 03/27/25 1509 BP: (!) 118/42 108/58 108/52 BP Location: Left arm Right arm Right arm Patient Position: Sitting Sitting Standing Pulse: 54 Weight: 85.7 kg (189 lb) Height: 1.6 m (5' 3 ) Objective Physical Exam Allergies Doxycycline, Norah inhibitors, Amlodipine, Chlorthalidone, Codeine, Hydrochlorothiazide, Loperamide, Nifedipine, Penicillins, and Sulfamethoxazole Current Medications Current Outpatient Medications Medication Instructions cloNIDine (CATAPRES) 0.1 mg, oral, As needed Eliquis 5 mg, oral, 2 times daily flecainide (TAMBOCOR) 50 mg, oral, 2 times daily hyoscyamine (ANASPAZ, LEVSIN) 0.125 mg, Every 6 hours PRN irbesartan (AVAPRO) 150 mg, oral, 2 times daily metoprolol tartrate (LOPRESSOR) 25 mg, oral, Daily PRN, TAKE 1 TABLET BY MOUTH NEEDED for break thru a- fib. Not to exceed one tablet daily. spironolactone (ALDACTONE) 50 mg, oral, Daily Assessment/Plan 1. Essential (primary) hypertension 2. Never smoked any substance 3. BMI 33.0-33.9,adult Scribe Attestation By signing my name below, I, Radha Yahaira FRIED , Scribe attest that this documentation has been prepared under the direction and in the presence of Charmaine Pinedo MD. Provider Attestation - Scribe documentation All medical record entries made by the Scribe were at my direction and personally dictated by me. Ihave reviewed the chart and agree that the record accurately reflects my personal performance of the history, physical exam, discussion and plan. [facility] Work Phone: [phone]) 679-690806-30-2025 Instructions* Patient Instructions* Radha Will LPN - 03/27/2025 3:00 PM EDT Please bring all medicines, vitamins, and herbal supplements with you when you come to the office. Prescriptions will not be filled unless you are compliant with your follow up appointments or have a follow up appointment scheduled as per instruction of your physician. Refills should be requested at the time of your visit. BMI was above normal measurement. Current weight: 85.7 kg (189 lb) Weight change since last visit (-) denotes wt loss 5 lbs Weight loss needed to achieve BMI 25: 48.2 Lbs Weight loss needed to achieve BMI 30: 20 Lbs Provided instructions on dietary changes. * Attachments The following attachments cannot be sent through Care Everywhere. * DASH Diet (Zimbabwean) [facility] Work Phone: [phone]) [phone] History of Present illness Narrative* Christine Rosenthal, [employer] - 02/08/2025 4:00 PM EDT Images from the original note were not included. Subjective : Chief Complaint: Jessy Dow is an 84 y.o. female here for an annual wellness visit. I have reviewed and reconciled the history and medication list with the patient today. Current Outpatient Medications Medication Sig Dispense Refill acetaminophen (Tylenol) 325 MG tablet Take 1-2 tablets by mouth as needed in the morning and 1-2 tablets as needed in the evening for mild pain. cloNIDine (Catapres) 0.1 MG tablet Take 0.1 mg by mouth Daily as needed for high blood pressure. Eliquis 5 MG tablet Take 5 mg by mouth in the morning and 5 mg before bedtime. flecainide (Tambocor) 50 MG tablet Take 0.5 tablets by mouth in the morning and 0.5 tablets before bedtime. hydrALAZINE (Apresoline) 100 MG tablet Take 0.5 tablets (50 mg) by mouth in the morning and 0.5 tablets (50 mg) before bedtime. 30 tablet 0 hyoscyamine (Levsin) 0.125 MG SL tablet Take 0.125 mg by mouth every 4 (four) hours if needed for cramping irbesartan (Avapro) 150 MG tablet Take 150 mg by mouth in the morning and 150 mg before bedtime. metoprolol tartrate (Lopressor) 25 MG tablet Multiple Vitamins-Minerals (Multivitamin Adult, Minerals,) tablet Take 1 tablet by mouth 1 (one) time each day polyethylene glycol, PEG, 3350 (Miralax) 17 g packet Take 17 g by mouth Daily as needed spironolactone (Aldactone) 50 MG tablet Take 50 mg by mouth Daily No current facility-administered medications for this visit. Review of Systems All other systems reviewed and are negative. List of current healthcare providers: Patient Care Team: Raghav Mitchell DO as PCP - General (Family Medicine) Raghav Mitchell DO as PCP - ACO Reach Charmaine Pinedo MD as Referring Physician (Cardiology) Porfirio Rubio DPM as Referring Physician (Podiatry) Medicare Annual Visit Over the past 2 weeks, how often have you been bothered by any of the following problems? Little interest or pleasure in doing things: Not at all Feeling down, depressed, or hopeless: Not at all Patient Health Questionnaire-2 Score: 0 Over the past 2 weeks, how often have you been bothered by any of the following problems? Trouble falling or staying asleep, or sleeping too much: Not at all Feeling tired or having little energy: Not at all Poor appetite or overeating: Not at all Feeling bad about yourself - or that you are a failure or have let yourself or your family down: Not at all Trouble concentrating on things, such as reading the newspaper or watching television: Not at all Moving or speaking so slowly that other people could have noticed? Or the opposite - being so fidgety or restless that you have been moving around a lot more than usual.: Not at all Thoughts that you would be better off or hurting yourself in some way: Not at all Patient Health Questionnaire-9 Score: 0 Crum Fall Risk History of Falling, Immediate or Within 3 Months: No Secondary Diagnosis: No Ambulatory Aid: Walks without aid/bedrest/nurse assist Intravenous Therapy/Heparin Lock: No Gait/Transferring: Normal/bedrest/immobile Mental Status: Oriented to own ability Crum Fall Risk Score: 0 Health Risk Assessment Form Do you need help eating, bathing, using the toilet, dressing, or getting around your home?: No Can you prepare your own meals?: Yes Can you do your own housework without help?: Yes Can you shop for groceries or clothes without help?: Yes Do you exercise for about 20 minutes 3 or more days a week?: No How confident are you that you can control and manage most of your health problems?: Very confident Can you mange your money, credit cards and accounts, pay bills and taxes?: Yes Vision Screening: Yes, patient was advised to have yearly eye exam Hearing Screening: Not done Cognitive Screening Three Word Registration: Banana, [place], Chair Clock Drawing: Normal Clock - 2 Three Word Recall: All 3 words correct - 3 Total Score (0-5 Points): 5 Pain Assessment Pain Score: 3 Advance Care Planning Do you have a living will?: No Do you have a medical power of attorney general?: Yes Who is your medical power of attorney general?: Carmen Daughter Objective : BP 120/70 Pulse 80 Temp 96.2 F Ht 5' 3 Wt 189 lb SpO2 97% BMI 33.48 kg/m No results found. Physical Exam Constitutional: Appearance: Normal appearance. HENT: Head: Normocephalic and atraumatic. Right Ear: Tympanic membrane normal. Left Ear: Tympanic membrane normal. Nose: Nose normal. Mouth/Throat: Mouth: Mucous membranes are moist. Pharynx: Oropharynx is clear. Eyes: Extraocular Movements: Extraocular movements intact. Neck: Vascular: No carotid bruit. Cardiovascular: Rate and Rhythm: Normal rate and regular rhythm. Heart sounds: Normal heart sounds. Pulmonary: Effort: Pulmonary effort is normal. Breath sounds: Normal breath sounds. No wheezing, rhonchi or rales. Musculoskeletal: Cervical back: Neck supple. Lymphadenopathy: Cervical: No cervical adenopathy. Skin: General: Skin is warm and dry. Neurological: General: No focal deficit present. Mental Status: She is alert and oriented to person, place, and time. Psychiatric: Mood and Affect: Mood normal. Behavior: Behavior normal. Judgment: Judgment normal. Assessment/Plan : The following health maintenance schedule was reviewed with the patient and provided in printed form in the after visit summary: Health Maintenance Topic Date Due Pneumococcal Vaccine: 65+ Years (2 of 2 - PPSV23) 12/09/2025 (Originally 11/03/2016) Influenza Vaccine (Season Ended) 2025 Medicare Annual Wellness (AWV) 02/08/2026 Advance Care Planning Has LW and POA Diagnoses and all orders for this visit: Routine general medical examination at health care facility (Primary) Benign essential hypertension ([facility]) History of atrial fibrillation Osteoarthritis, unspecified osteoarthritis type, unspecified site Patient here for annual Medicare Wellness visit. Demographics were updated. Self-assessment was completed. Past medical, family and social history were updated. The medication list, including supplements being taken, was updated. A list of other current medical providers was established/updated. Time was spent discussing health maintenance issues, ordering proper testing, and schedule was provided regarding recommended screening. We discussed safety issues and fall risk. Depression screening was completed and addressed. Cognitive function was assessed by direct observation and assessment of ability to perform ADL's and IADL's was done. We also discussed Advanced Directives and code status. The current BMI was provided along with an education packet regarding healthy living and maintenanceof a healthy weight. The BMI will cont to be monitored at routine office visits as well. Major riskfactors for chronic disease including family history were discussed . No orders of the defined types were placed in this encounter. Electronically signed by Chirstine Rosenthal NP on February 08, 2025 documented in this encounterCit[facility] [id number] History of Present illness Narrative* Porfirio Rubio, ARMANDO - 02/03/2025 10:30 AM EDT Images from the original note were not included. Subjective Patient ID: Jessy Dow is a 84 y.o. female who presents for Toenail Care (Established pt presents today for nail care. ). HPI Established patient presents to clinic for painful toenails. Review of Systems Constitutional: Negative for activity change and appetite change. Respiratory: Negative for chest tightness and shortness of breath. Cardiovascular: Positive for leg swelling. Negative for chest pain. Musculoskeletal: Positive for arthralgias. Skin: Negative for color change and wound. Neurological: Negative for weakness and numbness. Psychiatric/Behavioral: Negative for agitation and behavioral problems. Hematological: Does not bruise/bleed easily. Endocrine: Negative for cold intolerance and heat intolerance. Allergic/Immunologic: Negative for immunocompromised state. Medications Current Outpatient Medications: acetaminophen (Tylenol) 325 MG tablet, Take 1-2 tablets by mouth as needed in the morning and 1-2 tablets as needed in the evening for mild pain., Disp: , Rfl: Eliquis 5 MG tablet, Take 5 mg by mouth in the morning and 5 mg before bedtime., Disp: , Rfl: flecainide (Tambocor) 50 MG tablet, Take 0.5 tablets by mouth in the morning and 0.5 tablets beforebedtime., Disp: , Rfl: hyoscyamine (Levsin) 0.125 MG SL tablet, Take 0.125 mg by mouth every 4 (four) hours if needed for cramping, Disp: , Rfl: irbesartan (Avapro) 150 MG tablet, Take 150 mg by mouth in the morning and 150 mg before bedtime., Disp: , Rfl: metoprolol tartrate (Lopressor) 25 MG tablet, , Disp: , Rfl: Multiple Vitamins-Minerals (Multivitamin Adult, Minerals,) tablet, Take 1 tablet by mouth 1 (one) time each day, Disp: , Rfl: polyethylene glycol, PEG, 3350 (Miralax) 17 g packet, Take 17 g by mouth Daily as needed, Disp: , Rfl: spironolactone (Aldactone) 50 MG tablet, Take 50 mg by mouth Daily, Disp: , Rfl: cloNIDine (Catapres) 0.1 MG tablet, Take 0.1 mg by mouth Daily as needed for high blood pressure., Disp: , Rfl: hydrALAZINE (Apresoline) 100 MG tablet, Take 0.5 tablets (50 mg) by mouth in the morning and 0.5 tablets (50 mg) before bedtime., Disp: 30 tablet, Rfl: 0 Allergies Doxycycline, Norah inhibitors, Amlodipine, Chlorthalidone, Clonidine, Codeine, Hydrochlorothiazide, Lisinopril, Loperamide, Nsaids, Other, Penicillins, Sulfanilamide, and Nifedipine Past Surgical History Past Surgical History: Procedure Laterality Date CATARACT EXTRACTION, BILATERAL Bilateral 2018 CHOLECYSTECTOMY Pedalino COLONOSCOPY 2003 [facility] COLONOSCOPY 11/2017 -moderate sigmoid diverticular disease HEART CATH 01/17/2019 OTHER SURGICAL HISTORY avoiding seeds- Diverticulosis FL EXCISION THYROGLOSSAL DUCT CYST/SINUS TOTAL ABDOMINAL HYSTERECTOMY [...] utilizing a nail nipper and electric bur convex grinder without incident. Patient noted relief of [...] understanding. Porfirio Rubio DPM documented in this [facility]03-07-2025 History of Present illness Narrative* Raghav Mitchell, DO - 12/02/2024 3:00 PM EST Images from the original note were not included. [facility] [place] SUBJECTIVE: HPI: Jessy Dow is a 84 y.o. female who presents with chief complaint of No chief complaint on file. Pt is here for er follow up for diverticulitis on 11/25. Finished antibiotic and is feeling better. No concerns at this time but still has some soreness in her gut inside. History of Present Illness The patient is an 84-year-old female who presents for evaluation of diverticulitis, elevated heart rate, blood pressure management, and medication management. She has been experiencing recurrent episodes of diverticulitis, with the most recent episode occurring on 11/25/2024. She completed her antibiotic course two days prior to this visit. She sought medical attention at [facility] due to persistent intestinal pain over a three-day period. The attending physician, suspecting a recurrence of diverticulitis, did not deem it necessary to conduct any laboratory tests or imaging studies. She reports intermittent soreness in her intestines but no current cramping. She has been avoiding nuts and seeds in her diet to prevent exacerbation of her condition. She has also been advised against consuming broccoli and cauliflower due to their potential to cause excessive gas production. She plans to incorporate MiraLAX into her regimen. She was previously treated with doxycycline for sinusitis and laryngitis, which resulted in severe diarrhea, prompting her to discontinue the medication. This led to a flare-up of her diverticulitis. She has a history of adverse reactions to doxycycline, including a previous episode of severe diarrhea that took over a month to resolve. Her heart rate increased to 103 last week, leading to a state of panic. Her heart rate typically ranges from the 50s to the 60s, but has been consistently in the 80s over the past week, with a peak of 95 yesterday. She initially attributed this to her diverticulitis, but the condition has since resolved. She reports that her heart rate can occasionally reach the 150s. She has been prescribed Toprol by her dermatology sales representative to manage her heart rate when it exceeds 120. She is currently on flecainide. Her blood pressure tends to be elevated upon waking, but decreases after she has been up for a while, sometimes dropping to as low as 119 from initial readings of 140 or 150. On rare occasions, her blood pressure has decreased into the upper 90s. She is currently on hydralazine and irbesartan. She has expressed interest in receiving the influenza vaccine. She has never had the influenza vaccine before. She has received the pneumonia vaccine in the past. She has a history of chickenpox. She has a known allergy to PENICILLIN, which she has not taken since childhood. She is interested in undergoing testing to confirm this allergy. She has a history of using tetracycline, which was effective in treating perioral dermatitis, but she had to discontinue it due to gastrointestinal side effects. She has a history of bronchitis, for which she received a Rocephin injection. She was monitored for 30 minutes post-injection to ensure there was no allergic reaction. 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 She has received rooster comb injections in both knees. She has a history of spinal stenosis and degenerative disc disease, for which she received a steroid injection at the [facility]. ALLERGIES The patient is allergic to PENICILLIN, DOXYCYCLINE, TETRACYCLINE, and SULFA. MEDICATIONS Current: Flecainide, hydralazine, irbesartan, metoprolol tartrate (as needed). IMMUNIZATIONS She has had one pneumonia shot in August 2016. SUBJECTIVE: MEDICATIONS: ALLERGIES Current Outpatient Medications Medication [...] irbesartan (AVAPRO) 150 mg, 2 times daily metoprolol tartrate (Lopressor) 25 MG tablet TAKE 1 TABLET BY MOUTH NEEDED for BREAKFAST througha fib Multiple Vitamins-Minerals (Multivitamin Adult, Minerals,) tablet 1 tablet, Daily polyethylene glycol (PEG) 3350 (MIRALAX) 17 g, Daily PRN spironolactone (ALDACTONE) 50 mg, Daily Allergies Allergen Reactions Doxycycline GI intolerance Norah Inhibitors Other Amlodipine Swelling and Unknown [...] OF SYMPTOMS: Review of Systems OBJECTIVE: BP 118/64 Pulse 79 Ht 5' 3 Wt 184 lb SpO2 98% BMI 32.59 kg/m Recent Results (from the past 6 weeks) ALL CBC WITH AUTO DIFF Collection Time: 12/02/24 1:21 PM Result Value Ref Range [facility] WBC 7.5 4.0 - 11.0 10 3/uL [facility] RBC 4.13 (L) 4.20 - 5.40 10 6/uL [facility] HGB 10.1 (L) 12.0 - 16.0 g/dL [facility] HCT 33.6 (L) 36.0 - 48.0 % [facility] MCV 81.4 81.0 - 99.0 fL [facility] MCH 24.5 (L) 26.7 - 34.0 pg TB[facility] MCHC 30.1 29.9 - 35.2 g/dL [facility] RDW 17.9 (H) 11.0 - 15.0 % [facility] PLT 267 150 - 450 10 3/uL [facility] MPV 9.8 9.5 - 13.5 fL NEUTROPHILS PERCENT AUTO 81.6 (H) 43.0 - 75.0 % LYMPHOCYTES PERCENT AUTO 10.7 (L) 20.5 - 60.0 % MONOCYTES PERCENT AUTO 6.6 1.7 - 12.0 % TB[facility] EO % 0.5 (L) 0.9 - 7.0 % BASOPHILS PERCENT AUTO 0.3 0.2 - 2.0 % IMMATURE GRANULOCYTES PCT AUTO 0.3 0.0 - 0.5 % NEUTROPHILS ABSOLUTE AUTO 6.1 1.4 - 6.5 10 3/uL LYMPHOCYTES ABSOLUTE AUTO 0.8 (L) 1.2 - 3.8 10 3/uL MONOCYTES ABSOLUTE AUTO 0.5 0.3 - 0.8 10 3/uL TBH EO # 0.0 0.0 - 0.7 10 3/uL BASOPHILS ABSOLUTE AUTO 0.0 0.0 - 0.1 10 3/uL IMMATURE GRANULOCYTES ABS AUTO 0.02 0.00 - 0.03 10 3/uL ALL BASIC METABOLIC PANEL Collection Time: 12/02/24 1:21 PM Result Value Ref Range SODIUM 141 136 - 145 mmol/L POTASSIUM 4.2 3.5 - 5.1 mmol/L CHLORIDE 106 98 - 107 mmol/L CARBON DIOXIDE 26.5 21.0 - 32.0 mmol/L ANION GAP 12.7 GLUCOSE 109 (H) 74 - 106 mg/dL BLOOD UREA NITROGEN 11.0 7.0 - 18.0 mg/dL CREATININE 1.16 (H) 0.55 - 1.02 mg/dL TB[facility] EGFR-AF FIJIAN 54 (L) >=60 mL/min/1.73m 2 TB[facility] EGFR-NON AF FIJIAN 45 (L) >=60 mL/min/1.73m 2 BUN CREATININE RATIO 9.5 CALCIUM 8.7 8.5 - 10.1 mg/dL Results GENERAL EXAM: Physical Exam Physical Exam Lungs were auscultated. Heartbeat is normal. Abdominal exam was performed. ASSESSMENT AND PLAN: Assessment/Plan Assessment & Plan 1. Diverticulitis. The condition appears to have resolved at present. She has been advised to avoid foods such as lettuce, salads, popcorn, nuts, and corn, which may exacerbate her condition. The importance of a high-fiber diet was emphasized. She has been instructed to contact the clinic if she experiences any symptoms indicative of a recurrence of diverticulitis. 2. Elevated heart rate. She has been advised to take metoprolol tartrate 25 mg if her heart rate exceeds 120 beats per minute. She should not take more than one dose per day due to her concurrent use of flecainide. 3. Blood pressure management. She has been advised to ensure adequate hydration and rest if her blood pressure drops significantly. She should monitor her blood pressure regularly and report any significant changes. 4. Medication management. She has been advised to avoid doxycycline and tetracycline due to previous adverse reactions. Alternative antibiotics such as metronidazole and ciprofloxacin were discussed. She has been informed about the possibility of penicillin desensitization if necessary. 5. Health maintenance. She has been advised to receive the Prevnar 20 vaccine during her upcoming Medicare wellness visit.The ideal time for the influenza vaccine was discussed, and she has been given until June 12 to September 11 to consider it. PROCEDURE The patient received a Rocephin injection for bronchitis in the past. She has also received roostercomb injections in both knees. Additionally, she had a steroid injection for spinal stenosis and degenerative disc disease at the [facility]. No follow-ups on file. I have reviewed and reconciled the history and medication list with the patient today. documented in this encounterCitizens Memorial [id number] History of Present illness Narrative* Charmaine Pinedo MD - 11/25/2024 2:50 PM EST Subjective Jessy Dow is a 84 y.o. female Chief Complaint Follow-up HPI Patient is in the office for follow-up for the problems noted below accompanied by her daughter. Few days ago she called our office complaining that her heart rate was increasing up to nearly 100 bpmfrom her normal baseline of 60 to 70 bpm and has been dealing recently with diverticulitis requiring ER visit. EKG today revealed that she is in sinus rhythm with a heart rate of 78 bpm. She is on fle cainide and long-term anticoagulation. Her weight is coming [...] my direction and personally dictated by me. Ihave reviewed the chart and agree that the record accurately reflects my personal performance of the history, physical exam, discussion and plan. documented in this encounterC[facility] Work Phone: 1(174) 400-858302-28-2025 Instructions* Patient Instructions* Rose Marie Yadav LPN - 11/25/2024 2:50 [...] as needed Follow up documented in this encounterCincinnati [facility] Work Phone: 1(679) 699-928702-05-2025 History of Present illness Narrative* Porfirio Rubio DPM - 11/02/2024 10:45 AM EST Images from the original note were not [...] mouth in the morning and 0.5 tablets beforebedtime., Disp: , Rfl: furosemide (Lasix) 20 MG [...] Date CATARACT EXTRACTION, BILATERAL Bilateral [facility] COLONOSCOPY 11/2017 -moderate sigmoid diverticular disease HEART CATH 01/17/2019 OTHER SURGICAL HISTORY avoiding seeds- Diverticulosis FL EXCISION THYROGLOSSAL DUCT CYST/SINUS TOTAL ABDOMINAL HYSTERECTOMY [...] utilizing a nail nipper and electric bur convex grinder without incident. Patient noted relief of [...] understanding. Porfirio Rubio DPM documented in this encounterCitizens Memorial [id number] History of Present illness Narrative* Robel Worthington, PLATER APPRENTICE - 10/25/2024 10:31 AM EST Pt was called and she reported her hip and knees are feeling better. She does not want to do formaltherapy at this time. She will be discharged and if she needs further assistance she was told to get another referral. documented in this [facility]01-13-2025 Telephone encounter Note* Telephone Encounter - Tiny Burris - 10/10/2024 3:44 PM EST She was scheduled 10/05 for Eval and 10/07 but ended up cancelling also. [facility] [id number] Miscellaneous Notes* Telephone Encounter - Tiny Burris - 10/10/2024 3:44 PM EST She was scheduled 10/05 for Eval and 10/07 but ended up cancelling also. * Telephone Encounter - Tiny Burris - 10/10/2024 3:28 PM EST She called noting she is currently dealing w/ diverticulitis and feels starting PT up would not be good. I mentioned her Eval scheduled 10/17 can be moved to 10/24; but she said she'd feel better if wecould RS her PT per her call back. documented in this [facility]01-13-2025 Telephone encounter Note* Telephone Encounter - Tiny Burris - 10/10/2024 3:28 PM EST She called noting she is currently dealing w/ diverticulitis and feels starting PT up would not be good. I mentioned her Eval scheduled 10/17 can be moved to 10/24; but she said she'd feel better if wecould RS her PT per her call back. [facility] [id number] Telephone encounter Note* Telephone Encounter - Tiny Burris - 10/03/2024 10:12 AM EST She called noting her mother was dealing w/ other medical conditions at the time and requested to cx out a week or 2. We cx Eval and the 2 the following week and rs Eval for 10/17/24; she is scheduledout to 10/26. [facility] [id number] Miscellaneous Notes* Telephone Encounter - Tiny Burris - 10/03/2024 10:12 AM EST She called noting her mother was dealing w/ other medical conditions at the time and requested to cx out a week or 2. We cx Eval and the 2 the following week and rs Eval for 10/17/24; she is scheduledout to 10/26. documented in this encounterCitizens Memorial He[id number] History of Present illness Narrative* Raghav Mitchell, DO - 09/27/2024 11:20 AM EST Images from the original note were not included. History of Present Illness The patient is an 84-year-old female who presents for evaluation of left leg swelling, hip pain, and diverticulitis. Pt c/o bilateral leg swelling left leg has more swelling. Pt states that when she spoke with the dermatology sales representative he told her he thinks it may [...] She contacted her healthcare provider, and the nursesuggested a potential vascular issue. She describes the skin on her legs as shiny and reports itching. The most severe pain is located at the base of her foot. She also experiences heel pain when sitting. She has attempted to elevate her legs using a wooten bag but finds it uncomfortable. She has notbeen able to wear her socks due to [...] for the past 2 weeks, decorating for [place] despite her hip pain. She has a [...] days without any blood in the stool. Sheis unsure about the appearance of the stool. [...] by mouth in the morning and 1 tablet(500 mg) before bedtime. Do all this for [...] thrombosis, which is a positive outcome. The dermatology sales representative suspects a vascular etiology, potentially related to [...] No follow-ups on file. documented in this encounterCitizens Memorial [id number] History of Present illness Narrative* PHUONG Hansen - 09/26/2024 2:45 PM EST Images from the original note were not [...] DENIES ANY RADIATING PAIN, NO N/T. NOTES SWELLINGIN HER (L) KNEE - ELEVATES. TAKING TYLENOL / ALSO USES HEATING PAD. TAKES ELIQUIS - H/O A FIB PAST MEDICAL HISTORY: Past Medical History: Diagnosis Date A-fib ([facility] [place] grade 3 cystocele Bradycardia 04/2019 COVID Diverticulosis Hot flashes Hx of being hospitalized 01/14/2019 [facility] adm with chest pain ; discharged 01/17/2019 Hx of being hospitalized 11/04/2018 [facility] Adm [facility] 11/05/2018 hypertension Hx of being hospitalized 08/16/2016 Adm to [facility] - Disch 08/17/2016 Hx of thyroglossal duct cyst Macular degeneration Personal history of other medical treatment LVB 9# 10oz PAST SURGICAL HISTORY: Past Surgical History: Procedure Laterality Date CATARACT EXTRACTION, BILATERAL Bilateral 2018 CHOLECYSTECTOMY Pedalino COLONOSCOPY 2003 [facility] COLONOSCOPY 11/2017 -moderate sigmoid diverticular disease HEART CATH 01/17/2019 OTHER SURGICAL HISTORY avoiding seeds- Diverticulosis FL EXCISION THYROGLOSSAL DUCT CYST/SINUS TOTAL ABDOMINAL HYSTERECTOMY [...] recommend Therapy for stretching, decrease pain/ tylenol andice. She declines hip bursa inject.. Recommend Ultrasound [...] for requiring urgent evaluation. documented in this encounterCitizens Memorial [id number] History of Present illness Narrative* Porfirio Rubio, DPM - 07/27/2024 1:15 PM EDT Images from the original note were not [...] mouth in the morning and 0.5 tablets beforebedtime., Disp: , Rfl: hydrALAZINE (Apresoline) 100 MG [...] BILATERAL Bilateral 2018 CHOLECYSTECTOMY Pedalino COLONOSCOPY 2003 [facility] COLONOSCOPY 11/2017 -moderate sigmoid diverticular disease HEART CATH 01/17/2019 OTHER SURGICAL HISTORY avoiding seeds- Diverticulosis FL EXCISION THYROGLOSSAL DUCT CYST/SINUS TOTAL ABDOMINAL HYSTERECTOMY [...] utilizing a nail nipper and electric bur convex grinder without incident. Patient noted relief of [...] understanding. Porfirio Rubio DPM documented in this encounterCitizens Memorial [id number] History of Present illness Narrative* Raghav Mitchell, DO - 05/12/2024 4:40 PM EDT Images from the original note were not included. Jessy Dow is a 83 y.o. female presents with chief complaint of No chief complaint on file. HPI: HPI Had severe right abd. Pain. Taken per squad to [facility], but she left AMA 5 hours later. Went to [place] after that. Soreness has resolved a lot. [...] subsided by the time she arrived in [place]. Despite using a suppository in the morning, her pain persisted. Her blood pressure spiked to 173/72, despite taking her prescribed medications. After her CT scan, a doctor's quality assistant reviewed her results and provided her with a copy of the results. She was informed that her pain could be due to stool and gas, a condition she has never experienced before. She has been experiencing excessive gas andburping, which is unusual for her. She is [...] within normal limits. The soreness in her lowerleft abdomen could be muscular in nature. She was advised to consume dairy products such as cheese,milk, beans, cauliflower, and broccoli. Should she experience persistent pain or fever, an antibiotic will be prescribed. No follow-ups on file. documented in this encounterCitizens Memorial [id number] History of Present illness Narrative* Charmaine Pinedo MD - 04/13/2024 11:10 AM EDT Subjective Jessy Dow is a 83 y.o. [...] bundle branch block. Patient has occasional palpitations andnot necessarily indicating recurrent atrial fibrillation. They are [...] dietary restrictions her weight has dropped 10 poundswhich is a good thing 4. Essential hypertension, [...] medical therapy is recommended Charmaine Pinedo MD, [facility] Review of Systems All other systems reviewed [...] my direction and personally dictated by me. Ihave reviewed the chart and agree that the record accurately reflects my personal performance of the history, physical exam, discussion and plan. documented in this [facility] Work Phone: 1(559) 663-735107-17-2024 Instructions* Patient Instructions* Rose Marie Yadav LPN - 04/13/2024 11:10 [...] up with gastro/Dr. Edwards documented in this [facility] Work Phone: 1(110) 346-473112-22-2023 History of Present illness Narrative* Charmaine Pinedo MD - 09/18/2023 10:20 AM EST Subjective Jessy Dow is a 83 y.o. [...] of Charmaine Pinedo MD. documented in this encounterC[facility] Work Phone: 1(255) 997-124112-22-2023 Instructions* Patient Instructions* Natasha Aranda CMA - 09/18/2023 10:20 AM [...] time of your visit. documented in this encounterCincinnati [facility] Work Phone: 1(489) 966-471911-21-2023 History of Present illness Narrative* Charmaine Pinedo MD - 08/18/2023 8:30 AM EST Subjective Jessy Dow is a 83 y.o. [...] Follow Up In Cardiology documented in this encounterCincinnati [facility] Work Phone: [phone]) 147-302811-21-2023 Instructions* Patient Instructions* Rose Marie Yadav LPN - 08/18/2023 8:30 AM EST Sep 2023 visit pending. Same meds documented in this [facility]UnMem[facility] Work Phone: [phone]) 974-497910-27-2022 Evaluation note* Encounter Date Diagnosis Assessment Notes Treatment Notes Treatment Clinical Notes Jun, Diverticular disease (ICD-10 - K57.90) [...] - R19.8) PATIENT DOES USE THE BENEFIBER [employer] ArmorText Other Evaluation noteNo InformationNort ArmorText Other Evaluation noteNo assessment information available [facility] Work Phone: Evaluation note* Diagnosis Essential hypertension, benign documented in this encounter [facility] Work Phone: Evaluation note* Diagnosis Paroxysmal atrial fibrillation (CMS/HCC)- Primary Atrial fibrillation Essential hypertension, benign Never smoked any substance High risk medication use Class II obesity Premature atrial contractions Supraventricular premature beats documented in this encounter [facility] Work Phone: Evaluation note* Diagnosis Onychomycosis- Primary Dermatophytosis of nail Onychodystrophy Other specified disease of nail Pain in both feet documented in this encounter [facility] HealthcareEvaluation note* Diagnosis Other thrombophilia (CMS/HCC) Stricture of artery (CMS/HCC) Stricture of artery Other forms of angina pectoris (CMS/HCC) Angina pectoris, unspecified (CMS/HCC) documented in this encounter [facility] HealthcareEvaluation note* Diagnosis Paroxysmal atrial fibrillation (Multi)- Primary Atrial fibrillation Essential hypertension, benign Right bundle branch block (RBBB) on electrocardiography Anticoagulated Encounter for long-term (current) use of anticoagulants Never smoked any substance BMI 34.0-34.9,adult Microcytic anemia Unspecified iron deficiency anemia High risk medication use Diverticulitis Diverticulitis of colon (without mention of hemorrhage) documented in this encounter [facility] Work Phone: Evaluation note* Diagnosis Acute hip pain, left- Primary Left leg swelling Trochanteric bursitis of left hip Pain of left calf Pain of left calf documented in this encounter [facility] HealthcareEvaluation note* Diagnosis Varicose veins of both legs with edema- Primary Diverticulitis Diverticulitis of colon (without mention of hemorrhage) documented in this encounter [facility] HealthcareEvaluation note* Diagnosis Onychomycosis- Primary Dermatophytosis of nail Onychodystrophy Other specified disease of nail Pain in both feet documented in this encounter [facility] HealthcareEvaluation note* Diagnosis Paroxysmal atrial fibrillation [...] mention of hemorrhage) documented in this encounter [facility] Work Phone: Evaluation note* Diagnosis Diverticulitis, colon- Primary Diverticulitis of colon (without mention of hemorrhage) Tachycardia Unspecified tachycardia Hypertension, unspecified type (CMS/HCC) documented in this encounter [facility]* Diagnosis Onychomycosis- Primary Dermatophytosis of nail Onychodystrophy Other specified disease of nail Pain in both feet documented in this encounter [facility]* Diagnosis Routine general medical examination at health care facility- Primary Routine general medical examination at a health care facility Benign essential hypertension (CMS/HCC) Essential hypertension, benign History of atrial fibrillation Personal history of other diseases of circulatory system Osteoarthritis, unspecified osteoarthritis type, unspecified site documented in this encounter [facility]* Diagnosis Essential (primary) hypertension Unspecified essential hypertension Never smoked any substance BMI 33.0-33.9,adult documented in this encounter [facility] Work Phone: Evaluation note* Diagnosis Onychomycosis- Primary Dermatophytosis of nail Onychodystrophy Other specified disease of nail Pain in both feet documented in this encounter [facility]* Diagnosis Closed fracture of multiple ribs of left side, sequela- Primary Moniliasis skin Candidiasis of skin and nails Atrial fibrillation, unspecified type (HCC) documented in this encounter [facility] physical note Author Annette Porras [facility] Note Date/Time April 01, 2025 11:19 am [facility] [address] [place] [address] Hospitalist H&P Signed Patient: Jessy Dow MR#: [id number] : 1940 Acct:[id number] Age/Sex: 84 / F Adm Date: 5 Loc: Room: [address] [place] [address] Type: ADM IN Attending Dr: Annette Porras MD Copies to: DO Annette Meadows MD~ HPI DATE OF EXAMINATION: 04/01/25 HISTORY OF PRESENT ILLNESS: 83 years old female presented after the fall. Patient missed the step and fell backwards on the left side and hit her chest on the standing table, she did not hit her head, currently she denies any headache any neck pain. She denied any loss of consciousness. She denied any prodromal symptoms. Currently patient complains of left side of the chest pain especially with breathing. Otherwise she denies any abdominal pain. She denies any back pain. No dizziness no lightheadedness. 10 systems are reviewed and are negative apart as mentioned H&P General -patient is awake alert oriented ?3, she appears to be quite weak, and in pain, appears to be uncomfortable HEENT -normal oropharyngeal mucosa without any ulcers or exudates Cardiovascular -S1 plus S2, with regular rate, without any murmurs, gallops, rubs Pulmonary -clear to auscultation bilaterally Gastrointestinal -abdomen is soft, nondistended, nontender, bowel sounds positive, no rigidity, no rebound Genitourinary -no flank tenderness Musculoskeletal -no back tenderness, significant bruising noted over the left side extending from the mid chest down to the flank area Neurological -no focal Skin -no significant ulcers, no rash noted Extremities - no edema in bilateral lower extremities noted Psychiatry - appropriate affect Laboratory work up, imaging studies reviewed EKG personally reviewed by me normal sinus rhythm with right bundle branch block, without ischemic changes Previous records in the computer system reviewed [facility] Medical History Sinus bradycardia Hypertension Atrial fibrillation Surgical History History of cataract surgery History of appendectomy History of cholecystectomy History of hysterectomy Family History Brother Legacy FamHx Relation: Brother(s) Father Mother Social History Smoking Status: Never smoker Substance Use Type: None Meds Medications and Allergies Allergies NORAH Inhibitors Allergy (Unknown, Verified 04/01/25 01:55) Cough amlodipine (From Norvasc) Allergy (Unknown, Verified 04/01/25 01:55) Leg Swelling chlorthalidone Allergy (Unknown, Verified 04/01/25 01:55) Muscle Pain clonidine Allergy (Unknown, Verified 04/01/25 01:55) Mouth Dry codeine Allergy (Unknown, Verified 04/01/25 01:55) Vomiting hydrochlorothiazide Allergy (Unknown, Verified 04/01/25 01:55) Diahrrea nifedipine Allergy (Unknown, Verified 04/01/25 01:55) tachycardia Penicillins Allergy (Unknown, Verified 04/01/25 01:55) Unknown Reaction Sulfa (Sulfonamide Antibiotics) Allergy (Unknown, Verified 04/01/25 01:55) Vomiting loperamide (From Imodium A-D) Allergy (Verified 04/01/25 01:55) Difficulty Swallowing Anti inflammatory Allergy (Unknown, Uncoded 04/01/25 01:55) Unknown Reaction Imodium AD Allergy (Unknown, Uncoded 04/01/25 01:55) Unknown Reaction Home Medications apixaban 5 mg tablet (Eliquis) 5 mg PO BID 11/30/17 [History Confirmed 09/01/23] flecainide 50 mg tablet 25 mg PO BID 11/30/17 [History Confirmed 09/01/23] irbesartan 150 mg tablet 150 mg PO Q12H 01/14/19 [History Confirmed 09/01/23] clonidine HCl 0.1 mg tablet 0.1 mg PO DAILY PRN Hypertension 07/27/23 [History Confirmed 09/01/23] hydralazine 25 mg tablet 100 mg PO BID 07/27/23 [History Confirmed 09/01/23] spironolactone 50 mg tablet 50 mg PO DAILY 07/27/23 [History Confirmed 09/01/23] Exam Physical Exam Vital Signs: Temp Pulse Resp BP Pulse Ox O2 Del Method 36.6 C 57 L 20 156/66 H 97 Room Air 04/01/25 10:12 04/01/25 10:12 04/01/25 10:12 04/01/25 10:12 04/01/25 10:12 04/01/25 10:12 Results - Hospitalist H&P Lab Results Labs: Laboratory Last Values Corrected WBC 8.0 X10E3/uL (3.8-11.6) 04/01/25 02:29 Uncorrected WBC Count 8.0 x10E3/uL (3.8-11.6) 04/01/25 02:29 RBC 3.87 x10E6/uL (3.60-5.00) 04/01/25 02:29 Hgb 9.2 g/dL (11.8-15.4) L 04/01/25 02:29 Hct 29.1 % (34.0-46.4) L 04/01/25 02:29 MCV 75.0 fl (80-100) L 04/01/25 02:29 MCH 23.7 pg (24.7-34.3) L 04/01/25 02:29 MCHC 31.6 g/dL (32.0-35.0) L 04/01/25 02:29 RDW 17.1 % (11.9-15.3) H 04/01/25 02: Plt Count 252 x10E3/uL (150-450) 04/01/25 02: MPV 8.3 fl (6.3-10.7) 04/01/25 02: Neut % (Auto) 79.8 % (.) 04/01/25 02: Lymph % (Auto) 12.1 % (.) 04/01/25 02: [place] % (Auto) 5.9 % (.) 04/01/25 02: Eos % (Auto) 0.6 % (.) 04/01/25 02: Baso % (Auto) 1.6 % (.) 04/01/25 02: Nucleat RBC Rel Count 0.0 /100 WBC (0-0.5) 04/01/25 02: Neut # (Auto) 6.4 x10E3/uL (1.8-7.7) 04/01/25 02: Lymph # (Auto) 1.0 x10E3/uL (1.00-4.8) 04/01/25 02: [place] # (Auto) 0.5 x10E3/uL (0.0-0.8) 04/01/25 02: Eos # (Auto) 0.1 x10E3/uL (0.0-0.45) 04/01/25 02: Baso # (Auto) 0.1 x10E3/uL (0.0-0.2) 04/01/25 02: Monocyte Dist Width 16.10 % (0.00-20.00) 04/01/25 02: PHA Creatinine Clear 42.83 04/01/25 02: Sodium 136 mmol/L (136-145) 04/01/25 02: Potassium 4.4 mmol/L (3.5-5.1) 04/01/25 02: Chloride 106 mmol/L (98-107) 04/01/25 02: Carbon Dioxide 24.0 mmol/L (21.0-31.0) 04/01/25 02: Anion Gap 10.4 mEq/L (6.0-15.0) 04/01/25 02: BUN 19 mg/dL (7-25) 04/01/25 02: Creatinine 1.04 mg/dL (0.60-1.20) 04/01/25 02:29 Est GFR (CKD-EPI) 53.329 mL/Min 04/01/25 02:29 Glucose 184 mg/dL (70-100) H 04/01/25 02:29 Calcium 8.6 mg/dL (8.6-10.3) 04/01/25 02: Total Bilirubin 0.4 mg/dl (0.3-1.0) 04/01/25 02:29 AST 13 U/L (13-39) 04/01/25 02:29 ALT 7 U/L (7-52) 04/01/25 02:29 Alkaline Phosphatase 96 U/L (34-104) 04/01/25 02:29 Total Protein 6.4 gm/dL (6.4-8.9) 04/01/25 02: Albumin 3.7 gm/dL (3.5-5.7) 04/01/25 02: Globulin 2.7 gm/dL 04/01/25 02:29 Albumin/Globulin Ratio 1.4 04/01/25 02:29 Urine Color Light-yellow (Yellow) 04/01/25 08:05 Urine Appearance Clear (Clear) 04/01/25 08:05 Urine pH 5.0 (5.0-9.0) 04/01/25 08:05 Ur Specific [place] >1.050 (1.001-1.030) H 04/01/25 08:05 Urine Protein Negative mg/dL (Negative) 04/01/25 08:05 Urine Glucose (UA) Normal mg/dL (Normal) 04/01/25 08:05 Urine Ketones Negative (Negative) 04/01/25 08:05 Urine Occult Blood Negative (Negative) 04/01/25 08:05 Urine Nitrite Negative (Negative) 04/01/25 08:05 Urine Bilirubin Negative (Negative) 04/01/25 08:05 Urine Urobilinogen Normal mg/dL (Normal) 04/01/25 08:05 Ur Leukocyte Esterase Negative (Negative) 04/01/25 08:05 Assessment & Plan Assessment/Plan (1) Hemothorax: (2) Fracture of rib: Plan 1. Status post mechanical fall associated with Fractures of the posterior leftninth and 10th ribs with small adjacent contusion and trace hemothorax Patient does take Eliquis due to atrial fibrillation, currently normal sinus rhythm, I will hold it for the reason above Conservative therapy, pain management, incentive spirometry, will consult PT OT Recheck chest x-ray in a.m. 2. Paroxysmal atrial fibrillation, currently remains in normal sinus, will continue with home therapy, hold Eliquis therapy 3. Microcytic anemia, we will recheck H&H in a.m., hold Eliquis therapy hypertension, continue with home medications 4. Hypertension, continue with home medications 5. DVT prophylaxis SCDs IP vs OBS Justification Based on differential dx, clinical care plan, and risk of adverse events, if untreated, in my clinical judgement this patient requires an acute care setting as: INPATIENT because of an expectation of an over 2 midnight stay. Estimated length of stay (# of days): 3 Documented By: Annette Porras MD 04/01/25 1108 Signed By: <Electronically signed by Annette Porras MD> 04/01/25 1119 [facility] [employer] Work Phone: History general Narrative - Reported* Type Description Date Medical History HTN Medical History a.fib Medical History diverticulitis Surgical History hysterectomy Surgical History Gallbladder Surgical History [employer] Other Hospital Discharge instructions Additional Instructions REHAB TO MANAGE: PT/OT to eval and treat Monitor VS per protocol Monitor Respiratory and Pain assessments--Left rib fractures, Hemothorax Monitor Cardiac assessment--Atrial fib Monitor labs as needed--Anemia, NENA, Hyperkalemia Encourage incentive spirometry Maintain high risk fall precautions [facility] [employer] Work Phone: Reason for referral (narrative)No reason for referral information availableWyandot [facility] Hospital [employer] Work Phone: Revvkk for visit Narrative* Consultation (Routine) - Authorized Specialty Diagnoses / Procedures Referred By Vern t Referred To Contact Cardiology Diagnoses Paroxysmal atrial fibrillation (Multi) Procedures Follow Up In Cardiology Charmaine Pinedo MD [address] [address], [address] [address] Charmaine Pinedo MD [address]03 [facility] 2, [address] [place] [address] Referral ID Status Reason Start Date Expiration Date V isits Requested Visits Authorized [id number] Authorized 09/18/2023 09/17/2024 1 1 [facility] Work Phone: Summary Purpose Family History [...] emergency department back in [facility] 20[facility] the recordfrom the visit were [...] therapy is recommended * Charmaine Pinedo MD, [facility] Chief Complaint and Reason for Visit Chief Complaint Admit Date fall April 01, 2025 9:08a m Reason for Visit Admit Date Acute hypoxemic respiratory failure April 01, 2025 9:08am Afib April 01, 2025 9:08a m REAVES (dyspnea on exertion) April 01, 2025 9:08am Fracture of rib April 01, 2025 9:08a m Hemothorax April 01, 2025 9:08a m Hypertension April 01, 2025 9:08a m Multiple fractures of ribs April 01 9:08am Chief Complaint cp Chief Complaint hypertension Chief Complaint Chest pain Chief Complaint Chest pain palpitations Chief Complaint ABD PAIN Reason for Visit Admit Date Fracture of rib April 01, 2025 9:08a m Hemothorax April 01, 2025 9:08a m Chief Complaint Admit Date fall April 01, 2025 9:08a m Rib Fractures/Pneumothorax s/p Fall April 05, 2025 5:07pm Rib Fractures/Pneumothorax s/p Fall April 12, 2025 12:00am Reason for Visit Admit Date Multiple fractures of ribs April 01 9:08am Acute hypoxemic respiratory failure April 01, 2025 9:08am Afib April 01, 2025 9:08a m REAVES (dyspnea on exertion) April 01, 2025 9:08am Fracture of rib April 01, 2025 9:08a m Hemothorax April 01, 2025 9:08a m Hypertension April 01, 2025 9:08a m Impaired mobility and activities of alesha y living April 05, 2025 5:07pm Multiple fractures of ribs April 05 5:07pm Acute hypoxemic respiratory failure April 05, 2025 5:07pm Afib April 05, 2025 5:07p m Fracture of rib April 05, 2025 5:07p m Hemothorax April 05, 2025 5:07p m Hypertension April 05, 2025 5:07p m Reason for Referral Specialty Diagnoses / Procedures Referred By Contac t Referred To Contact Diagnoses Paroxysmal atrial fibrillation (CMS/HCC) Procedures ECG 12 Lead Charmaine Pinedo MD [address] [place] [address] 2, [address] [address] Referral ID Status Reason Start Date Expiration Date V isits Requested Visits Authorized [id number] Pending Review 09/18/2023 09/17/2024 1 1 Specialty Diagnoses / Procedures Referred By Contac t Referred To Contact Cardiology Diagnoses Paroxysmal atrial fibrillation (CMS/HCC) Procedures Follow Up In Cardiology Charmaine Pinedo MD [address], [address] [address] Charmaine Pinedo MD [address] [place] [address] 2, [address] [address] Referral ID Status Reason Start Date Expiration Date V isits Requested Visits Authorized [id number] Authorized 09/18/2023 09/17/2024 1 1 Additional Source Comments INFORMATION SOURCE (unrecogn ized section and content) DATE CREATED AUTHOR 12/02/2018 [facility] DATE CREATED AUTHOR AUTHOR'S ORGANIZ ATION 02/11/2020 [facility] DATE CREATED AUTHOR AUTHOR'S ORGANIZ ATION 10/09/2022 [facility] DATE CREATED AUTHOR AUTHOR'S ORGANIZ ATION 04/17/2023 [facility] DATE CREATED AUTHOR AUTHOR'S ORGANIZ ATION 04/17/2023 [employer] DATE CREATED AUTHOR AUTHOR'S ORGANIZ ATION 01/27/2024 [facility] DATE CREATED AUTHOR AUTHOR'S ORGANIZ ATION 04/17/2025 [facility] DATE CREATED AUTHOR AUTHOR'S ORGANIZ ATION 05/31/2025 [facility] DATE CREATED AUTHOR AUTHOR'S ORGANIZ ATION 06/14/2025 [facility] EPIC REASON FOR VISIT (unrecogniz ed section and content) Reason Comments Hypertension Specialty Diagnoses / Procedures Referred By Contac t Referred To Contact Cardiology Diagnoses Essential hypertension, benign Procedures Follow Up In Cardiology Charmaine Pinedo MD [address] [facility] 2, [address] [address] Referral ID Status Reason Start Date Expiration Date V isits Requested Visits Authorized [id number] Authorized 07/23/2023 07/22/2024 1 1 Reason Comments Follow-up 6 months Specialty Diagnoses / Procedures Referred By Contac t Referred To Contact Diagnoses Paroxysmal atrial fibrillation (CMS/HCC) Procedures ECG 12 Lead Charmaine Pinedo MD [address] [facility] 2, [address] [address] Referral ID Status Reason Start Date Expiration Date V isits Requested Visits Authorized [id number] Pending Review 09/18/2023 09/17/2024 1 1 Reason Comments Pain Reason Comments Leg Swelling Reason Onset Date Comments Cx / Rs PT needed 10/03/2024 Reason Onset Date Comments CX PT 10/17 - 10/26/24 10/10/2024 Reason Comments Nail care Jessy Dow is a 84 y.o. female who presents for Nail care. Reason Comments Follow-up 6m Specialty Diagnoses / Procedures Referred By Contac t Referred To Contact Cardiology Diagnoses Essential hypertension, benign Procedures Follow Up In Cardiology Charmaine Pinedo MD [address] [facility] 2, [address] [place] [address] Phone: tel: fax: Charmaine Pinedo MD [address] [facility] 2, [address] [place] [address] Phone: tel: fax: Referral ID Status Reason Start Date Expiration Date V isits Requested Visits Authorized [id number] Authorized 04/13/2024 04/13/2025 1 1 Reason Comments Toenail Care Established pt prese nts today for nail care. Reason Comments Hypertension 4 month Follow up fo r Hypertension Reason Onset Date Comments Care Coordination 04/12/2025 Reason Comments Nail care Jessy Dow is a 84 y.o. female who presents for Toenail Care. Care Teams (unrecognized sec tion and content) Team Status: Active Member Role Status Dates Raghav Mitchell DO Primary Care Provider Active Team Status: Active Member Role Status Dates Raghav Mitchell DO Primary Care Provider Active St art: April 01, 2025 Alvin Murphy DO Emergency Provider Active St art: April 01, 2025 Annette Porras MD Admit Provider Active Start : April 01, 2025 Annette Porras MD Attending Provider Active S tart: April 01, [address] [facility] Other Provider Active Start: April 01, 2025 Aniceto Mota MD Other Provider Active Start: April 01, 2025 Michael Corley MD Other Provider Active St art: April 01, 2025 Gabriel Dumont MD Other Provider Active Start: 2024 Deric Friedman DO Other Provider Active Start: April 01, 2025 Milton Granda DO Other Provider Active Start: April 01, 2025 Eve Fenton MD Other Provider Active Start: 2024 Aldair Elaine MD Other Provider Activ e Start: April 01, 2025 Andrew Garcia MD Other Provider Active Start: 2024 Enoc Tapia MD Other Provider Active Start: April 01, 2025 Team Status: Inactive Member Role Status Dates Raghav Mitchell DO Primary Care Provider Active Mike Brian DO Emergency Provider Active Team Status: Inactive Member Role Status Dates Raghav Mitchell DO Primary Care Provider Active Kodi Smith Jr, MD Emergency Provider Active 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 Start Date End Date Raghav Mitchell, DO [address] [place] [address] PCP - General 02/08/20 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 Start Date End Date Raghav Mitchell DO [address] [place] [address] PCP - General 02/08/20 Team Status: Inactive Member Role Status Dates Raghav Mitchell DO Primary Care Provider Active St art: April 21, 2024 End: April 21, 2024 Alvin Murphy DO Emergency Provider Active St art: April 21, 2024 End: April 21, 2024 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 Start Date End Date Raghav Mitchell DO [address] [place] [address] PCP - ACO Reach 02/19/23 Raghav Mitchell DO [address] [place] [address] PCP - General Family Medicine 03/05/23 Charmaine Pinedo MD [address] [place] [address] Referring Physician Cardiology 02/01/24 Porfirio Rubio DPM [address] [place] [phone] Referring Physician Podiatry 02/01/24 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 Start Date End Date Raghav Mitchell DO [address] [place] [address] PCP - ACO Reach 02/19/23 Raghav Mitchell DO [address] [place] [address] PCP - General Family Medicine 03/05/23 Charmaine Pinedo MD [address] [facility] [address] [place] [address] Referring Physician Cardiology 02/01/24 Porfirio Rubio DPM [address] [place] [address] Referring Physician Podiatry 02/01/24 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 Start Date End Date Raghav Mitchell DO [address] [place] [phone] PCP - General 02/08/20 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 Start Date End Date Raghav Mitchell DO [address] [place] [address] PCP - ACO Reach 02/19/23 Raghav Mitchell DO [address] [place] [address] PCP - General Family Medicine 03/05/23 Charmaine Pinedo MD [address] [facility] [address] [place] [address] Referring Physician Cardiology 02/01/24 Porfirio Rubio DPM [address] [place] [phone] Referring Physician Podiatry 02/01/24 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 Start Date End Date Raghav Mitchell DO [address] [place] [address] PCP - ACO Reach 02/19/23 Raghav Mitchell DO [address] [place] [address] PCP - General Family Medicine 03/05/23 Charmaine Pinedo MD 7[address] [facility] [address] [place] [address] Referring Physician Cardiology 02/01/24 Porfirio Rubio DPM [address] [place] [phone] Referring Physician Podiatry 02/01/24 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 Start Date End Date Raghav Mitchell DO [address] [place] [address] PCP - ACO Reach 02/19/23 Raghav Mitchell DO [address] [place] [address] PCP - General Family Medicine 03/05/23 Charmaine Pinedo MD [address] [facility] [address] [place] [address] Referring Physician Cardiology 02/01/24 Porfirio Rubio DPM [address] [place] [phone] Referring Physician Podiatry 02/01/24 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 Start Date End Date Raghav Mitchell DO [address] [place] [address] PCP - ACO Reach 02/19/23 Raghav Mitchell DO [address] [place] [address] PCP - General Family Medicine 03/05/23 Charmaine Pinedo MD [address] [facility] [address] [place] [address] Referring Physician Cardiology 02/01/24 Porfirio Rubio DPM [address] [place] [phone] Referring Physician Podiatry 02/01/24 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 Start Date End Date Raghav Mitchell DO [address] [place] [address] PCP - ACO Reach 02/19/23 Raghav Mitchell DO [address] [place] [address] PCP - General Family Medicine 03/05/23 Charmaine Pinedo MD [address] [place] [address] Referring Physician Cardiology 02/01/24 Porfirio Rubio DPM [address] [place] [phone] Referring Physician Podiatry 02/01/24 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 Start Date End Date Raghav Mitchell, [address] [place] [address] PCP - ACO Reach 02/19/23 Raghav Mitchell DO [address] [place] [address] PCP - General Family Medicine 03/05/23 Charmaine Pinedo MD [address] [place] [address] Referring Physician Cardiology 02/01/24 Porfirio Rubio DPM [address] [place] [phone] Referring Physician Podiatry 02/01/24 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 Start Date End Date Raghav Mitchell, [address] [place] [address] PCP - ACO Reach 02/19/23 Raghav Mitchell DO [address] [place] [address] PCP - General Family Medicine 03/05/23 Charmaine Pinedo MD [address] [place] [address] Referring Physician Cardiology 02/01/24 Porfirio Rubio DPM [address] [place] [phone] Referring Physician Podiatry 02/01/24 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 Start Date End Date Raghav Mitchell DO [address] [place] [phone] PCP - General 02/08/20 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 Start Date End Date Raghav Mitchell, [address] [place] [address] PCP - ACO Reach 02/19/23 Raghav Mitchell DO [address] [place] [address] PCP - General Family Medicine 03/05/23 Charmaine Pinedo MD [address] [facility] 2, [address] [place] [address] Referring Physician Cardiology 02/01/24 Porfirio Rubio DPM [address] [place] [phone] Referring Physician Podiatry 02/01/24 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 Start Date End Date Raghav Mitchell, [address] [place] [address] PCP - ACO Reach 02/19/23 Raghav Mitchell DO [address] [place] [address] PCP - General Family Medicine 03/05/23 Charmaine Pinedo MD [address] [facility] [address], [address] [place] [address] Referring Physician Cardiology 02/01/24 Porfirio Rubio DPM [address] [place] [phone] Referring Physician Podiatry 02/01/24 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 Start Date End Date Raghav Mitchell DO [address] [place] [address] PCP - ACO Reach 02/19/23 Raghav Mitchell DO [address] [place] [address] PCP - General Family Medicine 03/05/23 Charmaine Pinedo MD [address] [facility] [address], [address] [place] [address] Referring Physician Cardiology 02/01/24 Porfirio Rubio DPM [address] [place] [phone] Referring Physician Podiatry 02/01/24 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 Start Date End Date Raghav Mitchell DO [address] [place] [address] PCP - ACO Reach 02/19/23 Raghav Mitchell DO [address] [place] [address] PCP - General Family Medicine 03/05/23 Charmaine Pinedo MD [address] [facility] [address], [address] [place] [address] Referring Physician Cardiology 02/01/24 Porfirio Rubio DPM [address] [place] [phone] Referring Physician Podiatry 02/01/24 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 Start Date End Date Raghav Mitchell DO [address] [place] [address] PCP - ACO Reach 02/19/23 Raghav Mitchell DO [address] [place] [address] PCP - General Family Medicine 03/05/23 Charmaine Pinedo MD [address] [facility] [address], [address] [place] [address] Referring Physician Cardiology 02/01/24 Porfirio Rubio DPM [address] [facility] [place] [address] Referring Physician Podiatry 02/01/24 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 Other Provider Active Start: April 01, 2025 Aniceto Mota MD Other Provider Active Start: April 01, 2025 Michael Corley MD Other Provider Active St art: April 01, 2025 Gabriel Dumont MD Other Provider Active Start: Irvin sheridan 2024 Deric M Brown , DO Other Provider Active Start: April 01, 2025 Milton Granda , DO Other Provider Active Start: April 01, 2025 Eve Fenton MD Other Provider Active Start: J 2024 Aldair Elaine MD Other Provider Activ e Start: April 01, 2025 Andrew Garcia MD Other Provider Active Start: J 2024 Enoc Tapia MD Other Provider Active Start: April 01, 2025 Lynnette Dunne MD Other Provider Active Start: Ju melina 2024 Bernard Lock MD Attending Provider Active Star t: April 01, 2025 Bernard Lock MD Other Provider Active Start: J 2024 Irais Nova APRN Other Provider Active St art: April 01, 2025 Sharath Stark Jr, DO Other Provider Active S tart: April 01, 2025 Andre Osei MD Other Provider Active Start: April 01, 2025 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 Start Date End Date Raghav Mitchell DO [address] [place] [address] PCP - ACO Reach 02/19/23 Raghav Mitchell DO [address] [place] [address] PCP - General Family Medicine 03/05/23 Charmaine Pinedo MD [address] [place] [address] Referring Physician Cardiology 02/01/24 Porfirio Rubio DPM [address] [place] [phone] Referring Physician Podiatry 02/01/24 Team Status: Active Member Role Status Dates Raghav Mitchell DO Primary Care Provider Active St art: April 05, 2025 Bernard Lock MD Admit Provider Active Start: 2024 Bernard Lock MD Other Provider Active Start: 2024 Blanca Mireles , BELKIS Other Provider Active Star t: April 05, 2025 Charito Reyes , [place] Other Provider Active Start : April 05, 2025 Sol Burns , [place] Other Provider Active Star t: April 05, 2025 Qian Sterling , [place]KIS Other Provider Active Start: 2024 Celia Mccord RN Other Provider Active Start: 2024 Dionne Lock RN Other Provider Active Start: 2024 Mumtaz Han MD Other Provider Active Start: April 05, 2025 José Miguel Quevedo DO Other Provider Active Start : April 05, 2025 Jonathan Daniels MD Other Provider Active Start : April 05, 2025 Wlado Hannon DO Other Provider Active Start: April 05, 2025 Jose Guerrero MD Other Provider Active Start: April 05, 2025 Annette Porras MD Other Provider Active Start : April 05, 2025 Emdund Cisneros DO Other Provider Active St art: April 05, 2025 Guido Thomas MD Other Provider Active Start: 2024 Allyson Feldman APRN Other Provider Active Start: April 05, 2025 Gadiel Hassan MD Other Provider Active Start: April 05, 2025 Derek Kimble MD Other Provider Active Start: 2024 Pranav Apple MD Other Provider Active Start: April 05, 2025 Ruben Sandoval MD Other Provider Active Start: April 05, 2025 Edmund Kirk DO Other Provider Active Start: April 05, 2025 Bella Kamara MD Other Provider Active Start: ly 2024 Ben Woods MD Other Provider Active Start: Mar Evie Vargas NP-Jenny Other Provider Active St art: April 05, 2025 Clint Ragsdale APRN Other Provider Active Star t: April 05, 2025 Xavier Unger MD Other Provider Active Start: April 05, 2025 Ward Teran MD Other Provider Active Start: Ju ly 2024 Dorian Sanchez MD Other Provider Active Start: Lars reuben 2024 Sherif Tejeda MD Other Provider Active Star t: April 05, 2025 Ayush Bronson MD Other Provider Active Start: 2024 Eloina Davidson , Other Provider Active Start: ly 2024 Gary Ordonez , Other Provider Active Start : April 05, 2025 Amelia Rossi APRN Other Provider Active Start: April 05, 2025 Maurizio Villanueva , Other Provider Active Start: April 05, 2025 Arley Shook MD Other Provider Active Sta rt: April 05, 2025 Jelena Newman APRN Other Provider Active Start : April 05, 2025 Sonal Rodriguez APRN Other Provider Active St art: April 05, 2025 Harman Rock MD Other Provider Active Start: 2024 Jamin Auguste MD Other Provider Active S tart: April 05, 2025 Stoney Veloz , Other Provider Active Star t: April 05, 2025 Tasha Martinez DO Other Provider Active Start: April 05, 2025 Rodney Sanchez MD Other Provider Active Start: April 05, 2025 Halle Murray MD Other Provider Active Start: April 05, 2025 Brigida Henderson APRN Other Provider Active Star t: April 05, 2025 Jessie Newberry MD Other Provider Active Start: 2024 Naveen Muse MD Other Provider Active Start: ly 2024 Bernard De La Paz MD Other Provider Active Start: April 05, 2025 Guido Hoffman MD Other Provider Active Start : April 05, 2025 Brody Camargo MD Other Provider Active Start: 2024 Mara Cronin APRN Other Provider Active Sta rt: April 05, 2025 Justino Tovar APRN Other Provider Active Start: April 05, 2025 Faviola Cervantes RN Other Provider Active Start: 2024 Andre Osei MD Attending Provider Active Start: April 05, 2025 Aniceto Mota MD Attending Provider Active Start: April 05, 2025 Aniceto Mota MD Other Provider Active Start: April 05, 2025 Michael Corley MD Other Provider Active St art: April 05, 2025 Gabriel Dumont MD Other Provider Active Start: 2024 Deric Friedman , Other Provider Active Start: April 05, 2025 Milton Granda DO Other Provider Active Start: April 05, 2025 Eve Fenton MD Other Provider Active Start: 2024 Aldair Elaine MD Other Provider Activ e Start: April 05, 2025 Andrew Garcia MD Other Provider Active Start: 2024 Enoc Tapia MD Other Provider Active Start: April 05, 2025 Team Status: Active Member Role Status Yary Mitchell DO Primary Care Provider Active St art: April 12, 2025 Bernard Lock MD Admit Provider Active Start: 2024 Bernard Lock MD Attending Provider Active Star t: April 12, 2025 Bernard Lock MD Other Provider Active Start: 2024 Blanca Mireles RN Other Provider Active Star t: April 12, 2025 Charito Reyes , [place] Other Provider Active Start : April 12, 2025 Sol Burns , [place] Other Provider Active Star t: April 12, 2025 Qian Sterling , [place] Other Provider Active Start: 2024 Celia Mccord , [place] Other Provider Active Start: 2024 Dionne Lock , [place] Other Provider Active Start: 2024 Mumtaz Han MD Other Provider Active Start: April 12, 2025 José Miguel Quevedo DO Other Provider Active Start : April 12, 2025 Jonathan Daniels MD Other Provider Active Start : April 12, 2025 Waldo Hannon DO Other Provider Active Start: April 12, 2025 Jose Guerrero MD Other Provider Active Start: April 12, 2025 Annette Porras MD Other Provider Active Start : April 12, 2025 Edmund Cisneros DO Other Provider Active St art: April 12, 2025 Guido Thomas MD Other Provider Active Start: 2024 Allyson Feldman APRN Other Provider Active Start: April 12, 2025 Gadiel Hassan MD Other Provider Active Start: April 12, 2025 Derek Kimble MD Other Provider Active Start: 2024 Pranav Apple MD Other Provider Active Start: April 12, 2025 Ruben Sandoval MD Other Provider Active Start: April 12, 2025 Edmund Kirk DO Other Provider Active Start: April 12, 2025 Bella Kamara MD Other Provider Active Start: 2024 Ben Woods MD Other Provider Active Start: Mar Evie Vargas , [employer] Other Provider Active St art: April 12, 2025 Clint Ragsdale APRN Other Provider Active Star t: April 12, 2025 Xavier Unger MD Other Provider Active Start: April 12, 2025 Ward Teran MD Other Provider Active Start: 2024 Dorian Sanchez MD Other Provider Active Start: Mar Sherif Tejeda MD Other Provider Active Star t: April 12, 2025 Ayush Bronson MD Other Provider Active Start: 2024 Eloina Davidson DO Other Provider Active Start: 2024 Gary Ordonez DO Other Provider Active Start : April 12, 2025 Amelia Rossi APRN Other Provider Active Start: April 12, 2025 Maurizio Villanueva DO Other Provider Active Start: April 12, 2025 Arley Shook MD Other Provider Active Sta rt: April 12, 2025 Jelena Newman APRN Other Provider Active Start : April 12, 2025 Sonal Rodriguez APRN Other Provider Active St art: April 12, 2025 Harman Rock MD Other Provider Active Start: 2024 Jamin Auguste MD Other Provider Active S tart: April 12, 2025 Stoney Veloz , DO Other Provider Active Star t: April 12, 2025 Tasha Martinez DO Other Provider Active Start: April 12, 2025 Rodney Sanchez MD Other Provider Active Start: April 12, 2025 Halle Murray MD Other Provider Active Start: April 12, 2025 Brigida Henderson APRN Other Provider Active Star t: April 12, 2025 Jessie Newberry MD Other Provider Active Start: 2024 Naveen Muse MD Other Provider Active Start: 2024 Bernard De La Paz MD Other Provider Active Start: April 12, 2025 Guido Hoffman MD Other Provider Active Start : April 12, 2025 Brody Camargo MD Other Provider Active Start: 2024 Mara Cronin APRN Other Provider Active Sta rt: April 12, 2025 Justino Tovar APRN Other Provider Active Start: April 12, 2025 Faviola Cervantes RN Other Provider Active Start: 2024 Rachel Rushing APRN ACNP- Other Provider Active Start: April 12, 2025 Aniceto Mota MD Other Provider Active Start: April 12, 2025 Michael Corley MD Other Provider Active St art: April 12, 2025 Gabriel Dumont MD Other Provider Active Start: 2024 Deric Friedman DO Other Provider Active Start: April 12, 2025 Milton Granda DO Other Provider Active Start: April 12, 2025 Eve Fenton MD Other Provider Active Start: 2024 Aldair Elaine MD Other Provider Activ e Start: April 12, 2025 Andrew Garcia MD Other Provider Active Start: 2024 Enoc Tapia MD Other Provider Active Start: April 12, 2025 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 Start Date End Date Raghav Mitchell, [address] [place] [address] PCP - ACO Reach 02/19/23 Raghav Mitchell DO [address] [place] [address] PCP - General Family Medicine 03/05/23 Charmaine Pinedo MD [address] [facility] [address] [place] [address] Referring Physician Cardiology 02/01/24 Porfirio Rubio DPM [address] [place] [phone] Referring Physician Podiatry 02/01/24 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 [facility] provides no warranty or guarantee of the accuracy or completeness of information in this document.
--- NOTE | 2025-06-23 17:17 | CT_ITS ---
The [address] [address] Patient Name: NILO RIZZO MRN: [id number] date: 1940 Sex: F Assigned Patient Location: ER Current Patient Location: ER Accession/Order Number: [id number] Exam Date: 06/23/2025 18:12 Report Date: 06/23/2025 19:23 At the request of: JEANINE NOLAN MD Procedure: CT abdomen pelvis w con CT ABDOMEN AND PELVIS WITH INTRAVENOUS CONTRAST: CLINICAL HISTORY: Left lower quadrant pain, rule out diverticulitis COMPARISON: CT abdomen pelvis 04/21/2024 TECHNIQUE: Spiral images were obtained through the abdomen and pelvis following the administration of intravenous contrast. This CT exam was performed using one or more following dose reduction techniques: Automated exposure control, adjustment of the mA and/or kV according to patient size, or use of iterative reconstruction technique. FINDINGS: Lung Bases: [Minimal bibasilar atelectasis and or scarring.] Organs:Cholecystectomy. Otherwise the liver, spleen, right adrenal gland and pancreas are unremarkable. Left adrenal nodule likely adrenal adenoma. Kidneys measure size without hydronephrosis.[ GI: Mild retained stool throughout the colon. No bowel obstruction. Moderate to severe sigmoid colonic diverticulosis. No fat stranding. Appendix not identified. No pericecal moderate changes.[ Pelvis:[Bladder is mostly collapsed. Hysterectomy. No adnexal mass.] Peritoneum/Retroperitoneum:Aortic vascular disease. Aorta is not aneurysmal. No free air or free fluid.[ Abd wall/Bones:Multilevel degenerative change. No suspicious osseous lesion.[ CT/CT abdomen pelvis w con IMPRESSION: Negative acute inflammatory process or bowel obstruction. Moderate severe sigmoid colonic diverticulosis. No surrounding fat stranding Impression dictated by: Wade Ayers M.D. 06/23/2025 7:23 PM Dictation Location: [place] [address] Electronically authenticated by: [id number] Y Date: 06/23/2025 19:23
--- NOTE | 2025-06-23 17:17 | XR_ITS ---
The [place] [id number] Patient Name: NILO RIZZO MRN: [id number] date: 1940 Sex: F Assigned Patient Location: ER Current Patient Location: ER Accession/Order Number: [id number] Exam Date: 06/23/2025 18:14 Report Date: 06/23/2025 19:20 At the request of: JEANINE NOLAN MD Procedure: XR hip LT 2V w/ pelvis Single frontal view pelvis and 2 views left hip INDICATION: Pain, fell in March FINDINGS: No fractures or dislocation involving hip or the pelvis. Soft tissues unremarkable. XR/XR hip LT 2V w/ pelvis IMPRESSION: Negative acute osseous abnormalities. Impression dictated by: Wade Ayers M.D. 06/23/2025 7:20 PM Dictation Location: [place] [address] Electronically authenticated by: [id number] Y Date: 06/23/2025 19:20
--- NOTE | 2025-06-23 17:18 | ED_ITS ---
Documented by User: Gavin Cerna MD 06/23/25 17:20 HPI HPI - General Adult General Chief complaint: Abdominal Pain Stated complaint: PAIN IN LEFT SIDE HIP Time Seen by Provider: 06/23/25 17:11 Source: patient Mode of arrival: walk-in History of Present Illness HPI narrative: 85-year-old female presented to the emergency department for chief complaint of pain in her left lower quadrant of her abdomen. She is worried she has diverticulitis. She has had it every day for 2 weeks but not continuously. No constipation or diarrhea or blood in her stool. No injury. In early March she had fallen and broke some ribs and spent some time in rehab center. Her family is concerned that this pain might be due to her fall but the patient did not have pain in this area until 2 weeks ago. Related Data Home Medications ?Medication ?Instructions ?Recorded ?Confirmed apixaban 5 mg tablet (Eliquis) 5 mg PO Q12H 07/24/23 0 11/04/24 clonidine HCl 0.1 mg tablet 0.1 mg PO Q4H PRN hyperten sive 07/24/23 11/04/24 emergency flecainide 50 mg tablet 25 mg PO Q12H 07/24/2311/04 hydralazine 100 mg tablet 100 mg PO Q12H 07/24/2304/21 irbesartan 150 mg tablet 150 mg PO BID 07/24/2311/04 spironolactone 50 mg tablet 50 mg PO DAILY 07/24/23 nitrofurantoin 100 mg PO Q12H 11/04/2404/21 monohydrate/macrocrystals 100 mg capsule Previous Rx's ?Medication ?Instructions ?Recorded benzonatate 100 mg capsule 100 mg PO BID PRN cough 7 d ays #14 11/04/24 caps doxycycline monohydrate 100 mg 100 mg PO BID 7 days #1 4 caps 11/04/24 capsule ciprofloxacin HCl 500 mg tablet 500 mg PO BID #14 tabs 11/20/24 (Cipro) metronidazole 500 mg tablet 500 mg PO Q8H 7 days #21 t abs 11/20/24 Allergies Allergy/AdvReac Type Severity Reaction Status Date / Time NORAH Inhibitors Allergy Severe Cough Verified 04/21/24 19:06 loperamide (From Imodium A-D) Allergy Severe Difficulty Verified 04/21/24 19:06 Breathing chlorthalidone AdvReac Severe Cramping Verified 04/21/24 19:06 of the Muscles clonidine AdvReac Severe Dry Mucus Verified 04/21/24 19:06 Membranes codeine AdvReac Severe Nausea Verified 04/21/24 19:06 doxycycline AdvReac Severe Diarrhea Verified 11/20/24 10:36 nifedipine AdvReac Severe Palpitation Verified 04/21/24 19:06 s Penicillins AdvReac Severe Unknown Verified 04/21/24 19:06 Sulfa (Sulfonamide AdvReac Severe Nausea Verified 04/21/24 19:06 Antibiotics) hydrochlorothiazide AdvReac Unknown Joint Pain Verified 04/21/24 19:06 norvasc AdvReac Intermediate swelling Uncoded 04/21/24 19:06 of the legs Opioid HPI Opioid Management Most Recent Opioid Data: Last Pain Scale 2 04/21/24, 21:15 Review of Systems ROS Narrative A ten point review of systems is negative except as noted above. [facility] Medical History (Updated 06/23/25 @ 20:06 by Gareth Rowley MD) History of right bundle branch block ?Z86.79 - Personal history of other diseases of the circulatory system (ICD- 10) History of paroxysmal atrial tachycardia ?Z86.79 - Personal history of other diseases of the circulatory system (ICD-10) History of essential hypertension ?Z86.79 - Personal history of other diseases of the circulatory system (ICD- 10) Surgical History (Updated 07/24/23 @ 17:15 by George Taylor) History of throat surgery ?Z98.890 - Other specified postprocedural states (ICD-10) History of hysterectomy ?Z90.710 - Acquired absence of both cervix and uterus (ICD-10) History of colonoscopy ?Z98.890 - Other specified postprocedural states (ICD-10) History of cholecystectomy ?Z90.49 - Acquired absence of other specified parts of digestive tract (ICD- 10) History of cataract surgery ?Z98.49 - Cataract extraction status, unspecified eye (ICD-10) History of appendectomy ?Z90.49 - Acquired absence of other specified parts of digestive tract (ICD- 10) Social History Smoking status: Never smoker Little interest or pleasure in doing things: not at all Feeling down, depressed, or hopeless: not at all Exam Narrative Exam Narrative: Nurses note and vital signs reviewed and patient is not hypoxic. General:The patient appears in no apparent distress.Patient is resting comfortably on cart. Skin:Warm, dry, no pallor noted.There is no rash noted. Head:Normocephalic, atraumatic Eye: Normal conjunctiva, no drainage Ears, Nose, Mouth, and Throat: oral mucosa is moist. Nares patent. Cardiovascular:Regular Rate and Rhythm Respiratory:Patient is in no distress, no accessory muscle use, lungs are clear to auscultation, no wheezing, rales or rhonchi Back:non-tender GI: Nondistended. She has tenderness in the left lower quadrant without mass. Musculoskeletal: Left hip has good range of motion and no focal area of tenderness to palpation Neurological:A&O, normal speech Psychiatric:Cooperative Constitutional Vital Signs, click to edit/add: Last Vital Signs Temp 98.0 F 06/23/25 16:05 Pulse 65 06/23/25 16:05 Resp 18 06/23/25 16:05 BP 167/63 H 06/23/25 16:05 Pulse Ox 98 06/23/25 16:05 O2 Del Method Room Air 06/23/25 16:05 Course Vital Signs Vital signs: Vital Signs Temperature 98.0 F 06/23/25 16:05 Pulse Rate 65 06/23/25 16:05 Respiratory Rate 18 06/23/25 16:05 Blood Pressure 167/63 H 06/23/25 16:05 Pulse Oximetry 98 06/23/25 16:05 Oxygen Delivery Method Room Air 06/23/25 16:05 Temperature 98.0 F 06/23/25 16:05 Pulse Rate 65 06/23/25 16:05 Respiratory Rate 18 06/23/25 16:05 Blood Pressure 167/63 H 06/23/25 16:05 Pulse Oximetry 98 06/23/25 16:05 Oxygen Delivery Method Room Air 06/23/25 16:05 Medical Decision Making Lab Data Labs: Lab Results 06/23/25 06/23/25 Range/Units 17:15 17:30 WBC 7.4 (4.0-11.0) 10^3/uL RBC 4.24 (4.20-5.40) 10^6/uL Hgb 10.2 L (12.0-16.0) g/dL Hct 34.3 L (36.0-48.0) % MCV 80.9 L (81.0-99.0) fL MCH 24.1 L (26.7-34.0) pg MCHC 29.7 L (29.9-35.2) g/dL RDW 16.3 H (11.0-15.0) % Plt Count 293 (150-450) 10^3/uL MPV 10.8 (9.5-13.5) fL Neut % (Auto) 79.8 H (43.0-75.0) % Lymph % (Auto) 11.9 L (20.5-60.0) % Walton % (Auto) 6.6 (1.7-12.0) % Eos % (Auto) 1.1 (0.9-7.0) % Baso % (Auto) 0.3 (0.2-2.0) % Neut # (Auto) 5.9 (1.4-6.5) 10^3/uL Lymph # (Auto) 0.9 L (1.2-3.8) 10^3/uL Walton # (Auto) 0.5 (0.3-0.8) 10^3/uL Eos # (Auto) 0.1 (0.0-0.7) 10^3/uL Baso # (Auto) 0.0 (0.0-0.1) 10^3/uL Abs Immat Gran (auto) 0.02 (0.00-0.03) 10^3/uL Imm/Tot Granulo (auto) 0.3 (0.0-0.5) % Sodium 139 (136-145) mmol/L Potassium 4.4 (3.5-5.1) mmol/L Chloride 104 (98-107) mmol/L Carbon Dioxide 24.8 (21.0-32.0) mmol/L Anion Gap 14.6 BUN 22.0 H (7.0-18.0) mg/dL Creatinine 0.99 (0.55-1.02) mg/dL Est GFR ( Amer) >60 (>=60 mL/min/1.73m^2) Est GFR (Non-Af Amer) 53 L (>=60 mL/min/1.73m^2) BUN/Creatinine Ratio 22.2 Glucose 97 (74-106) mg/dL Calcium 9.1 (8.5-10.1) mg/dL Urine Color Lt. yellow (YELLOW) Urine Clarity Clear (CLEAR) Urine pH 6.0 (5.0-9.0) Ur Specific Polaris 1.020 (1.005-1.025) Urine Protein Negative (NEG/TRACE) mg/dL Urine Glucose (UA) Negative (NEGATIVE) mg/dL Urine Ketones Negative (NEGATIVE) mg/dL Urine Occult Blood Negative (NEGATIVE) Urine Nitrite Negative (NEGATIVE) Urine Bilirubin Negative (NEGATIVE) Urine Urobilinogen 0.2 (0.2-1.0) EU/dL Ur Leukocyte Esterase Negative (NEGATIVE) Urine RBC None seen (0-2) #/HPF Urine WBC None seen (NONE SEEN) #/HPF Ur Squamous Epith Cells Few A (NONE/RARE) #/LPF Urine Crystals None seen (None Seen) #/HPF Urine Bacteria Trace A (NONE SEEN) #/HPF Urine Casts None seen (NONE SEEN) #/LPF Urine Mucus None seen (NONE SEEN) Ur Culture Indicated? No Discharge Plan Discharge Chief Complaint: Abdominal Pain Clinical Impression: Abdominal pain Patient Disposition: Home, Self-Care Prescriptions / Home Meds: No Action Eliquis 5 mg tablet 5 mg PO Q12H clonidine HCl 0.1 mg tablet 0.1 mg PO Q4H PRN (Reason: hypertensive emergency) flecainide 50 mg tablet 25 mg PO Q12H hydralazine 100 mg tablet 100 mg PO Q12H irbesartan 150 mg tablet 150 mg PO BID spironolactone 50 mg tablet 50 mg PO DAILY ciprofloxacin HCl [Cipro] 500 mg tablet 500 mg PO BID Qty: 14 0RF metronidazole 500 mg tablet 500 mg PO Q8H 7 Days Qty: 21 0RF nitrofurantoin monohyd/m-cryst 100 mg capsule 100 mg PO Q12H benzonatate 100 mg capsule 100 mg PO BID PRN (Reason: cough) 7 Days Qty: 14 0RF doxycycline monohydrate 100 mg capsule 100 mg PO BID 7 Days Qty: 14 0RF Print Language: Colombian Instructions: Abdominal Pain (ED) Additional Instructions: follow up with your doctor next week for recheck Referrals: ASHLEY PINEDA [Primary Care Provider, Family Practice] - 1 week Documented by User: Gareth Rowley MD 06/23/25 20:09 HPI HPI - General Adult General Chief complaint: Abdominal Pain Stated complaint: PAIN IN LEFT SIDE HIP Time Seen by Provider: 06/23/25 17:11 Related Data Home Medications ?Medication ?Instructions ?Recorded ?Confirmed apixaban 5 mg tablet (Eliquis) 5 mg PO Q12H 07/24/23 0 11/04/24 clonidine HCl 0.1 mg tablet 0.1 mg PO Q4H PRN hyperten sive 07/24/23 11/04/24 emergency flecainide 50 mg tablet 25 mg PO Q12H 07/24/2311/04 hydralazine 100 mg tablet 100 mg PO Q12H 07/24/2304/21 irbesartan 150 mg tablet 150 mg PO BID 07/24/2311/04 spironolactone 50 mg tablet 50 mg PO DAILY 07/24/23 nitrofurantoin 100 mg PO Q12H 11/04/2404/21 monohydrate/macrocrystals 100 mg capsule Previous Rx's ?Medication ?Instructions ?Recorded benzonatate 100 mg capsule 100 mg PO BID PRN cough 7 d ays #14 11/04/24 caps doxycycline monohydrate 100 mg 100 mg PO BID 7 days #1 4 caps 11/04/24 capsule ciprofloxacin HCl 500 mg tablet 500 mg PO BID #14 tabs 11/20/24 (Cipro) metronidazole 500 mg tablet 500 mg PO Q8H 7 days #21 t abs 11/20/24 Allergies Allergy/AdvReac Type Severity Reaction Status Date / Time NORAH Inhibitors Allergy Severe Cough Verified 04/21/24 19:06 loperamide (From Imodium A-D) Allergy Severe Difficulty Verified 04/21/24 19:06 Breathing chlorthalidone AdvReac Severe Cramping Verified 04/21/24 19:06 of the Muscles clonidine AdvReac Severe Dry Mucus Verified 04/21/24 19:06 Membranes codeine AdvReac Severe Nausea Verified 04/21/24 19:06 doxycycline AdvReac Severe Diarrhea Verified 11/20/24 10:36 nifedipine AdvReac Severe Palpitation Verified 04/21/24 19:06 s Penicillins AdvReac Severe Unknown Verified 04/21/24 19:06 Sulfa (Sulfonamide AdvReac Severe Nausea Verified 04/21/24 19:06 Antibiotics) hydrochlorothiazide AdvReac Unknown Joint Pain Verified 04/21/24 19:06 norvasc AdvReac Intermediate swelling Uncoded 04/21/24 19:06 of the legs Opioid HPI Opioid Management Most Recent Opioid Data: Last Pain Scale 2 04/21/24, 21:15 PFSH PFS Medical History (Updated 06/23/25 @ 20:06 by Gareth Rowley MD) History of right bundle branch block ?Z86.79 - Personal history of other diseases of the circulatory system (ICD- 10) History of paroxysmal atrial tachycardia ?Z86.79 - Personal history of other diseases of the circulatory system (ICD- 10) History of essential hypertension ?Z86.79 - Personal history of other diseases of the circulatory system (ICD- 10) Surgical History (Updated 07/24/23 @ 17:15 by George Taylor) History of throat surgery ?Z98.890 - Other specified postprocedural states (ICD-10) History of hysterectomy ?Z90.710 - Acquired absence of both cervix and uterus (ICD-10) History of colonoscopy ?Z98.890 - Other specified postprocedural states (ICD-10) History of cholecystectomy ?Z90.49 - Acquired absence of other specified parts of digestive tract (ICD- 10) History of cataract surgery ?Z98.49 - Cataract extraction status, unspecified eye (ICD-10) History of appendectomy ?Z90.49 - Acquired absence of other specified parts of digestive tract (ICD- 10) Social History Smoking status: Never smoker Little interest or pleasure in doing things: not at all Feeling down, depressed, or hopeless: not at all Exam Constitutional Vital Signs, click to edit/add: Last Vital Signs Temp 98.0 F 06/23/25 16:05 Pulse 65 06/23/25 16:05 Resp 18 06/23/25 16:05 BP 167/63 H 06/23/25 16:05 Pulse Ox 98 06/23/25 16:05 O2 Del Method Room Air 06/23/25 16:05 Course Vital Signs Vital signs: Vital Signs Temperature 98.0 F 06/23/25 16:05 Pulse Rate 65 06/23/25 16:05 Respiratory Rate 18 06/23/25 16:05 Blood Pressure 167/63 H 06/23/25 16:05 Pulse Oximetry 98 06/23/25 16:05 Oxygen Delivery Method Room Air 06/23/25 16:05 Temperature 98.0 F 06/23/25 16:05 Pulse Rate 65 06/23/25 16:05 Respiratory Rate 18 06/23/25 16:05 Blood Pressure 167/63 H 06/23/25 16:05 Pulse Oximetry 98 06/23/25 16:05 Oxygen Delivery Method Room Air 06/23/25 16:05 Medical Decision Making MDM Narrative Medical decision making narrative: care transferred at change of shift. Patient presents with LLQ pain concerned ab out possible diverticulitis. CT returned with diverticulosis but no evidence of diverticulitis. xray left hip neg for acute findings. Patient re examined and her abdomen is nontender. She admits there is no pain with palpation but describes pain when she is standing and bends forward for example. Explained this may be muscular pain and offerred a muscle relaxant to see if this may help but she declined it and will follow up with her doctor Lab Data Labs: Lab Results 06/23/25 06/23/25 Range/Units 17:15 17:30 WBC 7.4 (4.0-11.0) 10^3/uL RBC 4.24 (4.20-5.40) 10^6/uL Hgb 10.2 L (12.0-16.0) g/dL Hct 34.3 L (36.0-48.0) % MCV 80.9 L (81.0-99.0) fL MCH 24.1 L (26.7-34.0) pg MCHC 29.7 L (29.9-35.2) g/dL RDW 16.3 H (11.0-15.0) % Plt Count 293 (150-450) 10^3/uL MPV 10.8 (9.5-13.5) fL Neut % (Auto) 79.8 H (43.0-75.0) % Lymph % (Auto) 11.9 L (20.5-60.0) % Walton % (Auto) 6.6 (1.7-12.0) % Eos % (Auto) 1.1 (0.9-7.0) % Baso % (Auto) 0.3 (0.2-2.0) % Neut # (Auto) 5.9 (1.4-6.5) 10^3/uL Lymph # (Auto) 0.9 L (1.2-3.8) 10^3/uL Walton # (Auto) 0.5 (0.3-0.8) 10^3/uL Eos # (Auto) 0.1 (0.0-0.7) 10^3/uL Baso # (Auto) 0.0 (0.0-0.1) 10^3/uL Abs Immat Gran (auto) 0.02 (0.00-0.03) 10^3/uL Imm/Tot Granulo (auto) 0.3 (0.0-0.5) % Sodium 139 (136-145) mmol/L Potassium 4.4 (3.5-5.1) mmol/L Chloride 104 (98-107) mmol/L Carbon Dioxide 24.8 (21.0-32.0) mmol/L Anion Gap 14.6 BUN 22.0 H (7.0-18.0) mg/dL Creatinine 0.99 (0.55-1.02) mg/dL Est GFR ( Amer) >60 (>=60 mL/min/1.73m^2) Est GFR (Non-Af Amer) 53 L (>=60 mL/min/1.73m^2) BUN/Creatinine Ratio 22.2 Glucose 97 (74-106) mg/dL Calcium 9.1 (8.5-10.1) mg/dL Urine Color Lt. yellow (YELLOW) Urine Clarity Clear (CLEAR) Urine pH 6.0 (5.0-9.0) Ur Specific Polaris 1.020 (1.005-1.025) Urine Protein Negative (NEG/TRACE) mg/dL Urine Glucose (UA) Negative (NEGATIVE) mg/dL Urine Ketones Negative (NEGATIVE) mg/dL Urine Occult Blood Negative (NEGATIVE) Urine Nitrite Negative (NEGATIVE) Urine Bilirubin Negative (NEGATIVE) Urine Urobilinogen 0.2 (0.2-1.0) EU/dL Ur Leukocyte Esterase Negative (NEGATIVE) Urine RBC None seen (0-2) #/HPF Urine WBC None seen (NONE SEEN) #/HPF Ur Squamous Epith Cells Few A (NONE/RARE) #/LPF Urine Crystals None seen (None Seen) #/HPF Urine Bacteria Trace A (NONE SEEN) #/HPF Urine Casts None seen (NONE SEEN) #/LPF Urine Mucus None seen (NONE SEEN) Ur Culture Indicated? No Discharge Plan Discharge Chief Complaint: Abdominal Pain Clinical Impression: Abdominal pain Patient Disposition: Home, Self-Care Prescriptions / Home Meds: No Action Eliquis 5 mg tablet 5 mg PO Q12H clonidine HCl 0.1 mg tablet 0.1 mg PO Q4H PRN (Reason: hypertensive emergency) flecainide 50 mg tablet 25 mg PO Q12H hydralazine 100 mg tablet 100 mg PO Q12H irbesartan 150 mg tablet 150 mg PO BID spironolactone 50 mg tablet 50 mg PO DAILY ciprofloxacin HCl [Cipro] 500 mg tablet 500 mg PO BID Qty: 14 0RF metronidazole 500 mg tablet 500 mg PO Q8H 7 Days Qty: 21 0RF nitrofurantoin monohyd/m-cryst 100 mg capsule 100 mg PO Q12H benzonatate 100 mg capsule 100 mg PO BID PRN (Reason: cough) 7 Days Qty: 14 0RF doxycycline monohydrate 100 mg capsule 100 mg PO BID 7 Days Qty: 14 0RF Print Language: Colombian Instructions: Abdominal Pain (ED) Additional Instructions: follow up with your doctor next week for recheck Referrals: ASHLEY PINEDA [Primary Care Provider, Family Practice] - 1 week
[2025-06-23 17:45] LABS: Glucose Urine UA NEGATIVE (NEGATIVE)
[2025-06-23 17:45] LABS: Hematocrit 34.3 % (36.0-48.0); Hemoglobin 10.2 g/dL (12.0-16.0); Immature Granulocytes Abs Auto 0.02 10^3/uL (0.00-0.03); Immature Granulocytes Pct Auto 0.3 % (0.0-0.5); Lymphocytes Absolute Auto 0.9 10^3/uL (1.2-3.8); Mean Corpuscular HGB Conc 29.7 g/dL (29.9-35.2); Mean Corpuscular Hemoglobin 24.1 pg (26.7-34.0); Mean Corpuscular Volume 80.9 fL (81.0-99.0); Platelet Count 293 10^3/uL (150-450); Red Blood Count 4.24 10^6/uL (4.20-5.40); White Blood Count 7.4 10^3/uL (4.0-11.0)
[2025-06-23 17:52] LABS: Anion Gap 14.6; Blood Urea Nitrogen 22.0 mg/dL (7.0-18.0); Calcium 9.1 mg/dL (8.5-10.1); Carbon Dioxide 24.8 mmol/L (21.0-32.0); Chloride 104 mmol/L (98-107); Estimated GFR (African America >60 (>=60 mL/min/1.73m^2); Estimated GFR (Non-African Ame 53 (>=60 mL/min/1.73m^2); Glucose 97 mg/dL (74-106); Potassium 4.4 mmol/L (3.5-5.1); Sodium 139 mmol/L (136-145)
[2025-06-23 17:56] LABS: Cast Seen? NONE SEEN #/LPF (NONE SEEN); Crystals Seen? None Seen #/HPF (None Seen); Urine Culture Indicated NO
--- NOTE | 2025-06-23 19:16 | PC.NURSE ---
i walked into this patient's room to find this patient awake and alert sitting upright on the chairs and talking to her family members. i informed this patient we are still waiting on your ct results to come back this patient voices no concerns, needs and shows no signs of distress
[2025-06-23 20:10] VITALS: BP 165/67; PULSE 59; O2SAT 97
--- NOTE | 2025-06-23 20:19 | PC.NURSE ---
i gave this patient verbal and written discharge orders and this patient voices yes to understanding these. at time of discharge this patient voices no concerns, needs and shows no signs of distress
== END 2025-06-23 20:20 | disposition home or self-care (01) ==
PROVIDERS: Emergency Medicine; Emergency Provider Internal Medicine; PCP Family Medicine
DX: R10.32 Left lower quadrant pain (principal); K57.30 Diverticulosis of large intestine without perforation or abscess without bleeding; Z90.49 Acquired absence of other specified parts of digestive tract; M25.552 Pain in left hip
CPT/HCPCS: 36415; 73502; 74177; 80048; 81001; 85025; 99285; Q9967